=== PATIENT | female | born 1975 | race Caucasian/White ===

== ENCOUNTER 2018-04-24 22:05 | Emergency (ER) | payer MEDICAID, SELFPAY ==
--- NOTE | 2018-04-24 22:05 | DT_ITS ---
This patient was seen during an EMR downtime April 22, 2018 - April 29, 2018. This patient may have a combination of paper and electronic documentation or all paper documentation. All documentation is viewable within the e-chart portion of [facility] for each patient visit.
--- NOTE | 2018-04-24 22:20 | CT_ITS ---
STUDY: CT BRAIN WITHOUT CONTRAST REASON FOR EXAM: Female, 42 years old. Headache RADIATION DOSAGE (If Supplied By Facility): CTDIvol = ( 44.99 ) mGy, DLP = ( 745.49 ) mGycm TECHNIQUE: Transaxial CT imaging of the brain was performed without administration of intravenous contrast material. Individualized dose optimization techniques were used for this CT. COMPARISON: None. FINDINGS: Normal soft tissue structures. Normal calvarium. Normal size ventricles and extra-axial spaces for the patient's age. Normal white matter tracts of the cerebral hemispheres. Normal basal ganglia and thalami. Normal brainstem. Normal cerebellum. There is no intracranial hemorrhage. There are no findings of an acute ischemic infarction. Normal visualized paranasal sinuses. CT/Brain/Head without Contrast IMPRESSION: Normal unenhanced CT scan of the brain. Electronically Signed: Nelson Ayon MD at 4:04 EDT , Service support ,
[2018-04-27 06:37] LABS: Hematocrit 40.5 % (37-47); Hemoglobin 13.2 g/dl (12.0-15.0); Mean Corpuscular Volume 95.1 fL (81-99); Red Blood Count 4.26 M/mm3 (4.2-5.4); White Blood Count 11.6 K/mm3 (4.4-11.0)
[2018-04-27 06:38] LABS: Absolute Lymphocyte Count 3.45 X10^3/ul (0.83-4.51); Absolute Neutrophil Count 7.1 X10^3/uL (2.0-7.7); Basophil# 0.02 X10^3/uL; Basophil% 0.2 % (0-1); Eosinophil# 0.04 X10^3/uL; Eosinophils% 0.3 % (0-5); Lymphocyte # 3.45 X10^3/ul (4.0); Lymphocyte % 29.7 % (19-41); Mean Corp Hgb Conc 32.6 g/gl (32-36); Monocyte# 0.96 X10^3/uL; Monocyte% 8.3 % (0-10); Neutrophil # 7.06 X10^3/uL (2.7-7.7); Neutrophil % 60.7 % (47-70); POSITIVE COUNT NO; POSITIVE DIFFERENTIAL NO; POSITIVE MORPHOLOGY NO; Platelet Count 283 K/mm3 (150-450); RBC Distribution Width CV 13.9 % (11.6-14.6); RBC Distribution Width SD 46.9 fl (35.1-43.9)
[2018-04-27 06:46] LABS: Anion Gap 7 (5-15); BUN 26 mg/dL (7-18); BUN/Creat Ratio 25.5 RATIO (10-20); Calcium,Total 8.3 mg/dL (8.5-10.1); Chloride 114 mmol/L (98-107); Creatinine, Serum 1.02 mg/dL (0.55-1.02); EST Glomerular Filtration Rate 63 mL/min (>60); Est Glom Filt Rate - Afr Amer 76 mL/min (>60); Glucose 86 mg/dL (74-106); Potassium 3.5 mmol/L (3.5-5.1); Sodium Level 149 mmol/L (136-145)
== END 2018-04-24 23:35 | disposition home or self-care (01) ==
LOC: ED 04-26 12:29
PROVIDERS: Emergency Provider Emergency Medicine; Family Provider Student in an Organized Health Care Education/Training Program; PCP Student in an Organized Health Care Education/Training Program
DX: G43.909 Migraine, unspecified, not intractable, without status migrainosus (principal); J45.909 Unspecified asthma, uncomplicated; F41.9 Anxiety disorder, unspecified; F32.9 Major depressive disorder, single episode, unspecified; Z79.899 Other long term (current) drug therapy
CPT/HCPCS: 70450; 80048; 85025; 96374; 96375; 99283; A4216

== ENCOUNTER → 2018-05-24 09:26 | Outpatient (CLI) | payer MEDICAID, SELFPAY ==
--- NOTE | 2018-05-26 14:12 | EEG ---
- Electroencephalogram Date of service: 05/24/2018 History EEG is being done in this 42 yr F to rule out seizures EEG Description: This is an 18 channel EEG with 10-20 lead placement system. Bipolar montages, Referential and Circumferential montages were reviewed. Photic stimulation and Hyperventilation were performed. The posterior dominant background rhythm is 9 HZ synchronous, symmetric, reacting to eye opening and closing. Photo stimulation elicited normal driving response but no abnormal photoparoxysmal response, Hyperventilation did not elicit any abnormal photoparoxysmal response. Artifact noted in the frontal leads bilaterally during the record. Sleep was identified. Multiple episodes of leg/arm twitching noted by the tech without any EEG correlate and had associated muscle artifact. There was no epileptiform discharges or electrographic seizures noted during this recording. EEG Interpretation This is a normal awake and asleep EEG. Multiple twitching episodes of the arm/leg noted by the tech without any EEG correlate, with associated muscle artifact. Clinical correlation is advised. There is no epileptiform discharges or electrographic seizures noted during the record.
--- NOTE | 2018-05-26 14:16 | EEG_ITS ---
- Electroencephalogram Date of service: 05/24/2018 History EEG is being done in this 42 yr F to rule out seizures EEG Description: This is an 18 channel EEG with 10-20 lead placement system. Bipolar montages, Referential and Circumferential montages were reviewed. Photic stimulation and Hyperventilation were performed. The posterior dominant background rhythm is 9 HZ synchronous, symmetric, reacting to eye opening and closing. Photo stimulation elicited normal driving response but no abnormal photoparoxysmal response, Hyperventilation did not elicit any abnormal photoparoxysmal response. Artifact noted in the frontal leads bilaterally during the record. Sleep was identified. Multiple episodes of leg/arm twitching noted by the tech without any EEG correlate and had associated muscle artifact. There was no epileptiform discharges or electrographic seizures noted during this recording. EEG Interpretation This is a normal awake and asleep EEG. Multiple twitching episodes of the arm/ leg noted by the tech without any EEG correlate, with associated muscle artifact. Clinical correlation is advised. There is no epileptiform discharges or electrographic seizures noted during the record.
== END ==
PROVIDERS: Family Provider Student in an Organized Health Care Education/Training Program; PCP Student in an Organized Health Care Education/Training Program; Visit Provider Nurse Practitioner Acute Care
DX: R56.9 Unspecified convulsions (principal)
CPT/HCPCS: 95819

== ENCOUNTER → 2018-08-22 12:13 | Outpatient (CLI) | payer MEDICAID, SELFPAY ==
[2018-08-22 13:41] LABS: ALB/GLOB Ratio 1.2 RATIO (0.9-2.4); AST(SGOT) 15 U/L (15-37); Alanine Aminotransfer ALT/SGPT 27 U/L (13-56); Albumin, Serum 3.8 g/dL (3.2-5.0); Alkaline Phosphatase 63 U/L (45-117); Anion Gap 4 (5-15); BUN 17 mg/dL (7-18); BUN/Creat Ratio 18.5 RATIO (10-20); Calcium,Total 8.9 mg/dL (8.5-10.1); Chloride 114 mmol/L (98-107); Creatinine, Serum 0.92 mg/dL (0.55-1.02); EST Glomerular Filtration Rate 71 mL/min (>60); Est Glom Filt Rate - Afr Amer 86 mL/min (>60); Globulin 3.3 g/dL (2.2-4.2); Glucose 74 mg/dL (74-106); Magnesium 2.2 mg/dL (1.6-2.6); Phosphorus 2.5 mg/dL (2.5-4.9); Potassium 4.1 mmol/L (3.5-5.1); Protein, Total 7.1 g/dL (6.4-8.2); Sodium Level 145 mmol/L (136-145)
== END ==
PROVIDERS: Family Provider Student in an Organized Health Care Education/Training Program; PCP Student in an Organized Health Care Education/Training Program; Referring Provider Nurse Practitioner Acute Care; Visit Provider Nurse Practitioner Acute Care
DX: Z79.899 Other long term (current) drug therapy (principal)
CPT/HCPCS: 36415; 80053; 83735; 84100

== ENCOUNTER → 2019-02-17 14:34 | Outpatient (CLI) | payer MEDICAID, SELFPAY ==
[2019-02-20 14:11] LABS: Adrenocorticotropic Hormone 2.8 pg/mL (7.2-63.3)
== END ==
PROVIDERS: Family Provider Student in an Organized Health Care Education/Training Program; PCP Student in an Organized Health Care Education/Training Program; Referring Provider Student in an Organized Health Care Education/Training Program; Visit Provider Student in an Organized Health Care Education/Training Program
DX: R41.840 Attention and concentration deficit (principal)
CPT/HCPCS: 36415; 82024

== ENCOUNTER → 2019-05-26 10:54 | Outpatient (CLI) | payer MEDICAID, SELFPAY ==
--- NOTE | 2019-05-23 15:26 | PCM.HP.BLA ---
History and Physical Date of Admission: 05/26/19 Bhavesh Beaulieu 1975 ? ? REFERRING PHYSICIAN: Ra Galvez, DO ? CHIEF COMPLAINT: Consult (Consult Breast) ? HPI: The patient is a 43 year old female presents with abnormal right breast ultrasound. Mammograms April 22, 2019 - Oval asymmetry in the right breast central to the nipple anterior depth US 04/22/19 The oval lesion in the right breast is consistent with an oil cyst and is at a low suspicion for malignancy. ?An ultrasound guided biopsy is recommended. Denies palpable breast masses. Denies history of breast biopsies. Denies breast pain. Denies nipple disharge. Paternal aunt had breast cancer No ovarian cancer known in family. US guided breast biopsy 05/02/19 - Breast, right, core biopsy - Breast tissue with focal stromal fibrosis. The pathology is discordant with the radiological findings. The mammograms reveal that the marker clip is not in any particular area of suspicion on the breast. Patient therefore presents for right stereotactic breast biopsy. ? ? PAST MEDICAL HISTORY ? Allergic rhinitis, cause unspecified ? ? Allergy, airborne subst ? Anxiety and depression ? ? Bee allergy status ? ? Depression ? ? Environmental allergies ? ? GERD (gastroesophageal reflux disease) ? ? Hypercholesteremia 11/2014 ? Impaired fasting glucose ? ? Migraines ? ? Morbid obesity (HCC) ? ? Obstructive sleep apnea ? ? DX 2006, not on CPAP since 06/2018 ? Unspecified asthma(493.90) ? ? weather, allergy and exercise triggers ? Vitamin D deficiency ? ? PAST SURGICAL HISTORY ? DELIVERY ONLY ? 2001 ? , low cervical ? LIGATE FALLOPIAN TUBE ? 2001 ? Tubal ligation ? LITHOTRIPSY [facility] Right 02/18/2018 ? ? Current Outpatient Medications: Sullivan Wumuvv-Hctxfq-Vcqu Oxide (GOLD SOLANO MEDICATED BABY) 79-4-15 % powd Apply 1 application to affected area twice daily as needed Magnesium 250 mg tab Take 1 tablet by mouth once daily. L. rhamnosus-L. reuteri (REPHRESH PRO-B) 2.5 billion cell cap Take 1 capsule by mouth daily at bedtime. gabapentin (NEURONTIN) 100 mg capsule Take 1 capsule by mouth three times daily for 90 days. albuterol HFA (VENTOLIN HFA) 90 mcg/actuation inhaler Inhale 2 Puffs as instructed every 4 hours as needed. Omeprazole 40 mg capsule Take 1 capsule by mouth once daily. Lacto.acidophilus-Bif.animalis (PRODIGEN) 31 billion cell cap Take 1 capsule by mouth once daily. LORazepam (ATIVAN) 0.5 mg tab Take by mouth at bedtime as needed. vortioxetine (TRINTELLIX) 10 mg tab Take 5 mg by mouth once daily. triamcinolone acetonide (NASACORT AQ) 55 mcg nasal inhaler Use 2 Sprays in each nostril every morning. azelastine (ASTELIN,ASTEPRO) 0.1% nasal spray Use 2 Sprays in each nostril daily at bedtime. guaiFENesin (MUCINEX) 600 mg 12 hr tablet Take 2 tablets by mouth twice daily as needed. cetirizine (ZYRTEC) 10 mg tablet Take 1 tablet by mouth once daily as needed. ketotifen fumarate (ZADITOR) 0.025 % (0.035 %) ophthalmic solution One drop to each eye 2 to 3 times a day as needed. vrtjlcm-nmtmjgufd-othjfxj D3 (CALCIUM 500+D) 500 mg(1,250mg) -200 unit per tablet Take 1 tablet by mouth twice daily with benzonatate (TESSALON PERLE) 100 mg capsule Take 1 capsule by mouth three times daily as needed. albuterol (PROVENTIL) 2.5 mg /3 mL (0.083 %) nebulizer solution Use 3 mL via nebulizer every 6 hours as needed for Wheezing/Shortness rizatriptan (MAXALT) 10 mg tablet Take 1 tablet by mouth as needed for Migraine Headache (see administration instructions). May amitriptyline (ELAVIL) 50 mg tablet Take 50 mg by mouth daily at bedtime. topiramate (TOPAMAX) 50 mg tablet Take 50 mg by mouth twice daily. ziprasidone (GEODON) 40 mg capsule Take 40 mg by mouth daily with dinner. yaqnuyxm-ztiwqpxpt-dryafcdfcksjwb (CORTISPORIN) otic solution Use 3 Drops in the left ear as needed. naproxen (NAPROSYN) 500 mg tablet Take 1 tablet by mouth twice daily as needed. cholecalciferol (VITAMIN D3) 2,000 unit tablet Take 1 tablet by mouth once daily. vitamin b complex (B COMPLETE) tab Take 1 tablet by mouth once daily. fluticasone-vilanterol (BREO ELLIPTA) 200-25 mcg/dose inhaler Inhale 1 Inhalation as instructed once daily. Rinse mouth out after use. EPINEPHrine (EPIPEN) 0.3 mg/0.3 mL auto-injector Inject 0.3 mL intramuscularly as needed (for allergic reaction.Seek emergent medical predniSONE (DELTASONE) 20 mg tablet 2 pills daily x 3 days, then 1 pill daily x 4 days, then 1/2 pill daily x 4 days. benzonatate (TESSALON PERLE) 100 mg capsule Take 1 capsule by mouth three times daily as needed. Menthol-Zinc Oxide (GOLD SOLANO MEDICATED) 0.15-1 % powder Apply 1 application to affected area twice daily. NYAMYC powder Apply 1 application to affected area four times daily as needed. ? ? ALLERGIES: Environmental Allergies [Other]; Lexapro [Escitalopram Oxalate]; Prozac [Fluoxetine Hcl]; Venom-Wasp; Venom-Yellow Hornet; Venom-Yellow Jacket Protein; Zoloft [Sertraline Hcl] ? PERSONAL HISTORY: Social History Socioeconomic History Marital status: Legally Spouse name: Not on file Number of children: 2 Years of education: Not on file Highest education level: Not on file Social Needs Financial resource strain: Not on file Food insecurity - worry: Not on file Food insecurity - inability: Not on file Transportation needs - medical: Not on file Transportation needs - non-medical: Not on file Occupational History Occupation: [employer] Employer: [employer] Tobacco Use Smoking status: Never Smoker Smokeless tobacco: Never Used Substance and Sexual Activity Alcohol use: No Drug use: No Sexual activity: Not on file Other Topics Concerns: Service: No Blood Transfusions: Not Asked Caffeine Concern: Not Asked Occupational Exposure: Not Asked Hobby Hazards: Not Asked Sleep Concern: Yes staying asleep Stress Concern: Not Asked Weight Concern: Not Asked Special Diet: No Back Care: Not Asked Exercise: No Bike Helmet: Not Asked Seat Belt: Yes Self-Exams: No Social History Narrative Not on file ? FAMILY HISTORY ? Asthma Mother ? ? Thyroid Mother ? ? COPD Mother ? ? other (depression) Mother ? ? other (depression) Sister ? ? Asthma Brother ? ? Depression Brother ? ? Diabetes Father ? ? Hypertension Father ? ? Diabetes Maternal Grandmother ? ? Thyroid Maternal Grandmother ? ? Cancer Maternal Grandfather ? ? unknown ? Kidney Disease Paternal Grandmother ? ? Cancer Paternal Grandfather ? ? Asthma Daughter ? ? Depression Daughter ? ? Depression Daughter ? ? other (ADD) Daughter ? ? ? REVIEW OF SYSTEMS: General - denies fevers, denies weight loss, denies anorexia, feels tired all the time Cardiovascular - denies chest pain, denies history of NH Pulmonary - has shortness of breath with exertion, denies coughing up blood, denies TOB use Gastrointestinal - denies abdominal pain, denies hematemesis Neurological - has migraine headaches, denies seizures, denies history of CVA Genitourinary - has had kidney stones, denies burning with urination, denies blood in urine Hematological - denies spontaneous/prolonged bleeding Skin - denies nonhealing skin wounds Musculoskeletal - has knee pain Endocrine - denies diabetes Psychological ? has anxiety, denies hallucinations Obstetrical: menarche onset is age 12, , first at age 21, BCP starting at age 21 for about 1 y, denies breast feeding, denies hormones use at present, has had no menstrual periods for greater than 15 y ? PHYSICAL EXAMINATION: General: The patient is 43 year old female, well nourished, well hydrated in no acute distress. The patient is oriented to time, place, and person. Patient is morbidly obese. VITALS: Ht: 5'3 Wt: 274# Head ? Normocephalic. EOM intact with sclera clear and no icterus noted. Wearing glasses. Mouth with mucus membranes moist. Neck - supple with no jugular venous distention noted. Trachea is midline. No carotid bruits noted. No thyroid enlargement or thyroid nodules detected. No masses noted. Chest/breast ? no asymmetry of breasts noted, no suspicious skin lesions noted, no nipple discharge and both nipples everted, no breast masses noted Lungs ? clear to auscultation. Normal breath sounds. No rales/rhonchi/wheezing noted. No labored breathing noted, such as retractions. No cough heard. Heart ? normal S1 and S2 auscultated. No rubs/clicks/murmurs noted. Regular rate. Abdomen ? soft and benign. Normal bowel sounds. Difficult to determine if any masses or organomegaly due to body habitus. Extremities ? no calf tenderness noted. No pitting edema noted. Skin ? normal skin integrity. Lymph ? no cervical adenopathy detected, no supraclavicular adenopathy detected, no axillary adenopathy detected Neurological ? gait normal, no focal deficits noted Psych ? calm and appropriate RADIOLOGIC STUDIES: As Noted ? ? IMPRESSION: abnormal mammograms of right breast, abnormal ultrasound of right breast ? PLAN: I have discussed above with patient and her boyfriend?s grandmother who is present with her. I have recommended right stereotactic breast biopsy, given that a US guided breast biopsy was recommended (though radiologist did admit low suspicion for malignancy). US guided biopsy pathology was discordant with radiological findings. Must therefore pursue mammograms as mode of biopsy and therefore proceed to stereotactic breast biopsy. I have described the procedure to the patient and given her a handout regarding the procedure I have counseled the patient as to the risks of the procedure, including but not limited to: infection, bleeding, injury to any blood vessels/nerves, scar tissue, needing additional procedure, complications of anesthesia, non concordance of lesion requiring further biopsy, etc. ? she understands. She agrees with the above. Will schedule for right stereotactic breast biopsy at [facility]. I have answered all questions to the patient?s satisfaction and the patient has no further questions. Return to Clinic: The patient is instructed to follow-up with me after the procedure.
--- NOTE | 2019-05-26 | IMM_PTH ---
PATIENT: FARRAH BELLA LOC: NESS U#:[id number] AGE/SX: 50/F ROOM: RE05/26/[address]: Dr. Ninfa Mcdonald MD : 1975 BED: DIS: SPEC #: [id number] RECD: 05/27/19 16:25 STATUS: JERAMY REQ #: [id number] GABRIEL: 05/26/19 00:[address]: iNnfa Mcdonald DEPT: IMMUNOHISTOCHEMISTRY RECD BY: Elin Borges ENTERED: 05/27/19 16:26 SP TYPE: IMMUNO OTHR DR: Dr. Ra Galvez DO Tissues: Right breast, NOS Procedures: CK5-6 (add) CK8 (add) MACRO (add) P53 (add) Vimentin (add) Pankeratin (initial) GATA3 (add) PHYSICIAN & INSTITUTION [place] [id number] SPECIMEN INFORMATION: Tissue Source: Right breast Clinical Info: Density 12 o'clock anterior depth Specimen Number: [id number] #1 CPT code: 46277, 74151 x6 METHODOLOGY: Deparaffinized sections of prefer/formalin-fixed tissue or PAP/DQ stained slides are incubated with monoclonal/polyclonal antibodies/oligonucleotide probes. Localization is made via biotin free immunoperoxidase method. Appropriate controls are performed and reacted as expected. Results on target cell population are indicated in the following table: RESULTS: ANTIBODY / CLONE RESULT Block 1 GATA3 (L50-823) negative AE1-3 (AE1/AE3/PCK26) negative CK8 (94ackhY80) negative Vimentin (V9) positive Macro (HAM-56) positive CK5-6 (D5 & 1684) negative P53 (DO-7) negative These tests were developed and their performance characteristics determined by [facility]. They may not have been cleared or approved by the U.S. Food and Drug Administration. The FDA has determined that such clearance or approval is not necessary. INTERPRETATION: Right breast, stereotactic needle core biopsy: No evidence of malignancy. AM:sushila 05/28/19
--- NOTE | 2019-05-26 11:30 | BRBX_PTH ---
PATIENT: FARRAH BELLA LOC: NESS U#:[id number] AGE/SX: 50/F ROOM: RE05/26/[address]: Dr. Ninfa cMdonald MD : 1975 BED: DIS: SPEC #: [id number] RECD: 05/26/19 13:07 STATUS: JERAMY SHIRLEY #: [id number] GABRIEL: 05/26/19 11:[address]: Ninfa Mcdonald DEPT: SURGICAL PATHOLOGY RECD BY: Lulu Stephens ENTERED: 05/26/19 14:58 SP TYPE: BREAST BX OTHR DR: Dr. Ra Galvez DO Tissues: Right breast, NOS Procedures: Surgery Specimen Level IV HEADER OPERATION: Right breast stereotactic needle core biopsy PRE-OP DIAGNOSIS: Density 12 o'clock anterior depth TISSUE SUBMITTED: Right breast ISCHEMIC TIME: 2 minutes FIXATION TIME: 8 hours MICROSCOPIC DIAGNOSIS Right breast, stereotactic needle core biopsy: Fat necrosis with associated benign histiocytic reaction and mild chronic inflammation and fibrosis. No evidence of malignancy. See comment. AM:sushila 05/27/19 COMMENT Immunohistochemistry ([id number]) supports the above diagnosis. MICROSCOPIC DESCRIPTION Slides are reviewed. GROSS DESCRIPTION Received is one container labeled with the patient's name and not further designated. The specimen consists of multiple elongated fragments of payan-yellow fibroadipose tissue that in aggregate measure 7.5 x 3 x 0.3 cm. The entire specimen is submitted in three cassettes. / SJ:sushila 05/26/19 TC:5 CPT: 61880
--- NOTE | 2019-05-26 13:46 | PCM.OPRPT ---
Report of Operation Date of Procedure: 05/26/19 Pre-Operative Diagnosis: abnormal lesion seen on right breast ultrasound and mammograms Post-Operative Diagnosis: same Surgery/Procedure Performed:: right stereotactic breast biopsy Description of Surgical Findings:: anterior depth lesion at mid upper aspect of right breast Type of Anesthesia:: Local - 1% xylocaine Specimen's removed: right breast tissue Estimated Blood Loss (mL): < 1 ml Fluids Replaced: none Description of Procedure: After informed consent was given, the patient was brought into the breast biopsy suite. Appropriate time out protocol was followed. She was then placed in the prone position on the stereotactic biopsy table. The patient?s right breast was then placed in the opening at the head of the table. A press hand supervisor compression mammogram was then obtained in the CC view. The suspicious radiological lesion was then identified. Stereo pictures of the lesion were then taken for XYZ coordinates. The Mammotome biopsy stylus was then positioned where it would be entering into the patient?s breast. The skin at this site was then cleansed with a surgical skin preparation. The skin and subcutaneous tissues at this site were then infiltrated with 1% xylocaine. A small skin incision was made with an 11 blade scalpel. The biopsy stylus was then positioned into the patient?s breast at the proper coordinates of depth. Using the Mammotome vacuum-assist device, several core samples of breast tissue were obtained. A hemostatic marker clip was then placed into the biopsy cavity and a press hand supervisor film revealed that it was properly deployed. It also appeared that part of the lesion was biopsied. The patient was then placed in the supine position and pressure was applied to the breast until no active bleeding was noted. A nylon suture was then placed to reapproximate the skin. A unilateral mammogram in the CC and MLO view were then taken which revealed that the marker clip was near the vicinity of the lesion in the CC view, but not in the LMO view. Though in the LMO view, the lesion was no longer seen. The patient tolerated the procedure well and was discharged from the breast biopsy suite in good condition. - Complications none noted
== END ==
PROVIDERS: Family Provider Student in an Organized Health Care Education/Training Program; PCP Student in an Organized Health Care Education/Training Program; Referring Provider Surgery; Visit Provider Surgery
DX: R92.8 Other abnormal and inconclusive findings on diagnostic imaging of breast (principal); K21.9 Gastro-esophageal reflux disease without esophagitis; E66.01 Morbid (severe) obesity due to excess calories; G47.33 Obstructive sleep apnea (adult) (pediatric); J45.909 Unspecified asthma, uncomplicated; F41.9 Anxiety disorder, unspecified; F32.9 Major depressive disorder, single episode, unspecified; Z79.51 Long term (current) use of inhaled steroids; Z79.52 Long term (current) use of systemic steroids; Z79.899 Other long term (current) drug therapy
CPT/HCPCS: 19081; 88305; 88341; 88342; J7050

== ENCOUNTER 2019-07-31 22:41 | Emergency (ER) | payer MEDICAID, SELFPAY ==
[2019-07-31 22:42] VITALS: BP 164/87; PULSE 74; RESP 16; TEMP 36.5; O2SAT 99; BMI 47.5
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
--- NOTE | 2019-07-31 22:55 | ED.DEP ---
ED Disposition - Plan for ED Patient: Disposition: Home or Assisted Living Diagnosis: Lumbar strain, Cervical strain Instructions: Neck Sprain/Strain, Back Sprain/Strain Referrals: Ra Galvez DO [Primary Care Provider] -
== END 2019-07-31 23:06 | disposition home or self-care (01) ==
LOC: ED 23:04
PROVIDERS: Emergency Provider Emergency Medicine; Family Provider Student in an Organized Health Care Education/Training Program; PCP Student in an Organized Health Care Education/Training Program
DX: S39.012A Strain of muscle, fascia and tendon of lower back, initial encounter (principal); S16.1XXA Strain of muscle, fascia and tendon at neck level, initial encounter; V89.2XXA Person injured in unspecified motor-vehicle accident, traffic, initial encounter; Y93.9 Activity, unspecified; Y92.9 Unspecified place or not applicable; Y99.9 Unspecified external cause status; J45.909 Unspecified asthma, uncomplicated; Z88.8 Allergy status to other drugs, medicaments and biological substances
CPT/HCPCS: 99284

== ENCOUNTER 2020-04-03 00:43 | Emergency (ER) | payer MEDICAID, SELFPAY ==
[2020-04-03 00:43] VITALS: BMI 47.5
[2020-04-03 00:44] VITALS: BP 149/86; PULSE 87; RESP 16; TEMP 36.4; O2SAT 99; BMI 46.5
[2020-04-03 01:28] LABS: Absolute Lymphocyte Count 1.52 X10^3/uL (0.83-4.51); Absolute Neutrophil Count 4.9 X10^3/uL (2.0-7.7); Basophil# 0.05 X10^3/uL; Basophil% 0.7 % (0-1); Eosinophil# 0.05 X10^3/uL; Eosinophils% 0.7 % (0-5); Hematocrit 41.5 % (37-47); Hemoglobin 13.3 g/dL (12.0-15.0); Lymphocyte # 1.52 X10^3/ul (4.0); Lymphocyte % 21.8 % (19-41); Mean Corpuscular Hgb 30.6 pg (27.0-32.0); Mean Corpuscular Volume 95.4 fL (81-99); Mean Platelet Vol. 9.9 fl (6.2-12.0); Monocyte# 0.47 X10^3/uL; Monocyte% 6.8 % (0-10); NRBC Flagged by Analyzer 0 % (0-5); Neutrophil # 4.86 X10^3/uL (2.7-7.7); Neutrophil % 69.9 % (47-70); Platelet Count 247 K/mm3 (150-450); RBC Distribution Width CV 13.9 % (11.6-14.6); RBC Distribution Width SD 48.8 fl (35.1-43.9); Red Blood Count 4.35 M/mm3 (4.2-5.4)
[2020-04-03 01:47] LABS: Internal QC Validated? YES +Cl - CLEAR BKGD; Pregnancy, Serum, hCG Quali. NEGATIVE Negative
[2020-04-03 01:53] LABS: Anion Gap 7 (5-15); BUN 17 mg/dL (7-18); BUN/Creat Ratio 15.6 RATIO (10-20); Calcium,Total 9.2 mg/dL (8.5-10.1); Chloride 114 mmol/L (98-107); Creatinine, Serum 1.09 mg/dL (0.55-1.02); EST Glomerular Filtration Rate 58 mL/min (>60); Est Glom Filt Rate - Afr Amer 70 mL/min (>60); Estimated Creatinine Clearance 52.09 ml/min; Glucose 117 mg/dL (74-106); Potassium 3.7 mmol/L (3.5-5.1); Sodium Level 144 mmol/L (136-145)
--- NOTE | 2020-04-03 02:07 | ED.VIS.GEN ---
History of Present Illness Chief Complaint: Mental Health Informant: Patient Current Severity: Moderate Maximum Severity: Moderate Narrative: Patient presents seeking a psychiatric evaluation for feeling sad and depressed. She denies 1 specific thing leading to this. She is a history of bipolar disorder and follows with [facility] for psychiatry. She is an appointment in 1 week. Patient reportedly called crisis for 5 days ago and talk with them as well. I was told by nursing staff that crisis called in and advised the patient would be coming in. They report the patient was having a fight with her boyfriend and he was stating that patient had made suicidal statements. Patient denies suicidal homicidal statements at this point. - Past Medical History (1) Prediabetes Status: Chronic (2) GERD (gastroesophageal reflux disease) Status: Chronic (3) Asthma Status: Chronic (4) Kidney stones Status: Chronic (5) Bipolar disorder Status: Chronic Past Medical History - Allergies and Home Meds Allergies/Adverse Reactions: Allergies bupropion [From Wellbutrin] Adverse Reaction (Verified 04/03/20 00:48) Other makes her angry escitalopram [From Lexapro] Adverse Reaction (Verified 04/03/20 00:48) Other makes her angry fluoxetine [From Prozac] Adverse Reaction (Verified 04/03/20 00:48) Other makes her angry vortioxetine [From Trintellix] Adverse Reaction (Verified 04/03/20 00:48) OTHER GETS GRAY Primary Care Physician: Ra Galvez DO [Primary Care Provider] - Prior records reviewed: Yes Lives: Spouse/ Significant Other Smoking Status: Never smoker Review of Systems General: Denies: Chills, Fever Eyes: Denies: Visual changes - bilaterally ENT: Denies: Bilateral ear pain Cardiovascular: Denies: Chest pain Respiratory: Denies: Dyspnea, Cough Gastrointestinal: Denies: Abdominal pain, Nausea, Vomiting, Diarrhea Genitourinary: Denies: Dysuria Musculoskeletal: Denies: Extremity Pain Skin: Denies: Rash Neurological: Denies: Headache Hematologic: Denies: Easy bruising, Easy bleeding Allergy: Denies: Uticaria Physical Exam Vital Signs/Narrative: Vital Signs Temp Pulse Resp BP Pulse Ox 04/03/20 00:44 97.6 F L 87 16 149/86 H 99 Inital Vital Signs reviewed: Yes General: Well nourished, Well developed Head: Normocephalic ENT: Moist mucous membranes Neck: Supple Cardiovascular: Regular rate, Regular rhythm Respiratory: No distress, CTA bilaterally Abdomen: Soft, Nontender, Normal bowel sounds Extremities: Nontender Skin: Normal color, No rash Neurological: Alert, Oriented x3, Normal Strength, Normal Sensation Psychological: Depressed, - - Flat affect. Denies suicidal homicidal thoughts. Diagnostic/Tx/Re-eval Laboratory Results 04/03/20 04/03/20 04/03/20 01:19 01:19 01:19 WBC 7.0 RBC 4.35 Hgb 13.3 Hct 41.5 MCV 95.4 MCH 30.6 MCHC 32.0 RDW Std Deviation 48.8 H RDW Coeff of Aretha 13.9 Plt Count 247 MPV 9.9 Immature Gran % (Auto) 0.100 Neut % (Auto) 69.9 Lymph % (Auto) 21.8 Hancock % (Auto) 6.8 Eos % (Auto) 0.7 Baso % (Auto) 0.7 Absolute Neuts (auto) 4.9 Absolute Lymphs (auto) 1.52 Nucleated RBC % 0 Sodium 144 Potassium 3.7 Chloride 114 H Carbon Dioxide 23.0 Anion Gap 7 BUN 17 Creatinine 1.09 H Estim Creat Clear Calc 52.09 Est GFR (MDRD) Af Amer 70 Est GFR (MDRD) Non-Af 58 L BUN/Creatinine Ratio 15.6 Glucose 117 H Calcium 9.2 Serum , Qual Urine Opiates Screen Urine Methadone Screen Ur Barbiturates Screen Ur Phencyclidine Scrn Ur Amphetamines Screen U Methamphetamin-MDMA U Benzodiazepines Scrn Urine Cocaine Screen U Cannabinoids Screen Ur Drug Screen Comment Ethyl Alcohol 5.0 04/03/20 04/03/20 01:19 02:18 WBC RBC Hgb Hct MCV MCH MCHC RDW Std Deviation RDW Coeff of Aretha Plt Count MPV Immature Gran % (Auto) Neut % (Auto) Lymph % (Auto) Hancock % (Auto) Eos % (Auto) Baso % (Auto) Absolute Neuts (auto) Absolute Lymphs (auto) Nucleated RBC % Sodium Potassium Chloride Carbon Dioxide Anion Gap BUN Creatinine Estim Creat Clear Calc Est GFR (MDRD) Af Amer Est GFR (MDRD) Non-Af BUN/Creatinine Ratio Glucose Calcium Serum , Qual NEGATIVE Urine Opiates Screen NEGATIVE Urine Methadone Screen NEGATIVE Ur Barbiturates Screen NEGATIVE Ur Phencyclidine Scrn NEGATIVE Ur Amphetamines Screen NEGATIVE U Methamphetamin-MDMA NEGATIVE U Benzodiazepines Scrn NEGATIVE Urine Cocaine Screen NEGATIVE U Cannabinoids Screen NEGATIVE Ur Drug Screen Comment Ethyl Alcohol - Medical Decision Making Reina from the counseling center spoke with the patient on the phone. Patient continues to deny suicidal or homicidal ideation. She states she does feel safe at home. She is agreed to follow-up for with her next counseling appointment. She has agreed to safety plan. ED Disposition - Plan for ED Patient: Disposition: Home or Assisted Living Diagnosis: Depression Instructions: ED Depression Referrals: Ra Galvez DO [Primary Care Provider] - Additional Instructions: Follow-up with [facility] next Sunday as scheduled.
--- NOTE | 2020-04-03 02:30 | NURSING ---
CALLED [facility] AT 0230
[2020-04-03 03:09] LABS: Amphetamine Urine VISTA NEGATIVE (<1000 ng/mL); Barbiturate Urine VISTA NEGATIVE (< 200 ng/mL); Benzodiazepine Urine VISTA NEGATIVE (< 200 ng/mL); Cocaine Urine VISTA NEGATIVE (< 300 ng/mL); Ecstacy Urine VISTA NEGATIVE (< 500 ng/mL); Methadone Urine VISTA NEGATIVE (< 300 ng/mL); PCP Urine VISTA NEGATIVE (< 25 ng/mL); THC Urine VISTA NEGATIVE (< 50 ng/mL); Vista UDS pH Range 6
[2020-04-03 03:29] VITALS: RESP 16
[2020-04-03 03:46] VITALS: RESP 16
--- OUTSIDE RECORDS SUMMARY | 2020-08-31 11:33 | XMS RPT_ITS | CCD ---
:1975 External Reference #:[id number] Author Organization [facility] Care Team Providers Name Role Phone Kathy Galvez Primary Care Provider LURIA, S Unavailable Unavailable LURIA, S Unavailable Unavailable LURIA, S Unavailable Unavailable LURIA, S Unavailable Unavailable BALCOM, E. Unavailable Unavailable GALVEZ, P Unavailable Unavailable KINKOPF Unavailable Unavailable GALVEZ, P Unavailable Unavailable CARVAJAL, G. Unavailable Unavailable GALVEZ Unavailable Unavailable Allergies Reported Allergen Reaction(s) Severity Date of Onset Location Adrenergic Contraindication-Me High, Unknown 11-02-2014 - [facility]Antagonists [facility] (47265) Translations: [ BETA-BLOCKERS (BETA-ADRENERGIC BLOCKING AGTS)] Angiotensin Contraindication-Me 11-02-2014 - [facility] (62799) (Kerrie) Inhibitors Translations: [ KERRIE INHIBITORS] buPROPion Rash 05-08-2019 - [facility] (50817) Environmental 12-25-2006 - [facility] Allergies [Other] (59531) Escitalopram Intolerance 10-30-2018 - [facility] (02381) FLUoxetine Intolerance 10-30-2018 - [facility] (08402) Sertraline Intolerance 10-30-2018 - [facility] (81741) [facility]: [ (73846) VENOM-WASP] Venom-Yellow Hornet Unknown 09-26-2007 [facility] Translations: [ (15883) VENOM-YELLOW HORNET] vilazodone Mental Status 05-17-2020 - [facility] Change (64152) vortioxetine Mental Status 01-08-2020 - [facility] Change (07419) yellow jacket venom 09-26-2007 [facility] protein Translations: (79422 ) [ VENOM-YELLOW JACKET PROTEIN] OTHER Translations: [ 12-25-2006 - [facility] OTHER] Other [place] [facility] Medications Medication Name Sig Date Prescriber Location Albuterol albuterol HFA 04-02-2020 Ra Kathy Lneny [facility] (VENTOLIN HFA) 90 (86483) mcg/actuation inhaler Inhale 2 Puffs as instructed every 4 hours as needed. 1 Inhaler 2 04/02/2020 Active albuterol (PROVENTIL) 2.5 mg /3 mL 08-07-2019 [facility] (12294) (0.083 %) nebulizer solution Use 3 mL via nebulizer every 4 hours as needed for Wheezing/Shortness of Breath. 1 vial contains 3 ml. 1 Package 1 08/07/2019 Active Comment: Inhale 2 Puffs as instructed every 4 hours as needed. Use 3 mL via nebulizer every 4 hours as needed for Wheezing/Shortness of Breath. 1 vial contains 3 ml . Allopurinol allopurinol (ZYLOPRIM) 08-04-2020 [facility] 300 mg tablet Take 1 (32327) tablet by mouth once daily. 90 tablet 3 08/04/2020 Active Comment: Take 1 tablet by mouth once daily. Amitriptyline amitriptyline (ELAVIL) 50 03-11-2020 [facility] mg tablet Take 0.5 (97831) tablets by mouth daily at bedtime. 0 03/11/2020 Active Comment: Take 0.5 tablets by mouth da jeri at bedtime. Amoxicillin / amoxicillin-clavulanic acid 06-24-2020 - Mario ([facility] ) [facility] Cl[facility]an[facility] (AUGMENTIN) 875-125 mg per 07-08-2020 [facility] (95940) tablet Indications: Bacterial sinusitis Take 1 tablet by mouth twice daily for 14 days. 28 tablet 0 06/24/2020 07/08/2020 Active Comment: Take 1 tablet by mouth twice daily for 14 days. Amphetamine aspartate amphetamine-dextroamphetamine XR [facility] / Amphetamine Sulfate (ADDERALL XR) [address] [facility] (00920) / Dextroamphetamine Take 20 mg by mouth once daily. 0 saccharate / Active Dextroamphetamine Sulfate Comment: Take 20 mg by mouth once mara ly. azelastine azelastine (ASTELIN,ASTEPRO) 02-04-2019 Ramirez sheth [facility] 0.1% nasal spray Use 2 Sprays (50941) in each nostril daily at bedtime. 1 Bottle 11 02/04/2019 Active Comment: Use 2 Sprays in each nostril daily at bedtime. B-complex with B-complex with 06-13-2019 [facility] vitamin C (ALLBEE vitamin C (ALLBEE (4419 5) WITH C) tablet WITH C) tablet Take 1 tablet by mouth once daily. 90 tablet 3 06/13/2019 Active B-complex with vitamin C 06-13-2019 [facility] (39616) (ALLBEE WITH C) tablet Take 1 tablet by mouth once daily. 90 tablet 3 06/13/2019 Active B-complex with vitamin C 06-13-2019 [facility] (04887) (ALLBEE WITH C) tablet Take 1 tablet by mouth once daily. 90 tablet 3 06/13/2019 Active B-complex with vitamin C 06-13-2019 [facility] (84577) (ALLBEE WITH C) tablet Take 1 tablet by mouth once daily. 90 tablet 3 06/13/2019 Active B-complex with vitamin C 06-13-2019 [facility] (31714) (ALLBEE WITH C) tablet Take 1 tablet by mouth once daily. 90 tablet 3 06/13/2019 Active B-complex with vitamin C 06-13-2019 [facility] (38162) (ALLBEE WITH C) tablet Take 1 tablet by mouth once daily. 90 tablet 3 06/13/2019 Active B-complex with vitamin C 06-13-2019 [facility] (64973) (ALLBEE WITH C) tablet Take 1 tablet by mouth once daily. 90 tablet 3 06/13/2019 Active B-complex with vitamin C 06-13-2019 [facility] (64860) (ALLBEE WITH C) tablet Take 1 tablet by mouth once daily. 90 tablet 3 06/13/2019 Active B-complex with vitamin C 06-13-[address] [facility] (04073) (ALLBEE WITH C) tablet Take 1 tablet by mouth once daily. 90 tablet 3 06/13/2019 Active B-complex with vitamin C 06-13-2019 Ra Kathy VillarrealGalvez [facility] (69873) (ALLBEE WITH C) tablet Take 1 tablet by mouth once daily. 90 tablet 3 06/13/2019 Active B-complex with vitamin C 06-13-[address] [facility] (59255) (ALLBEE WITH C) tablet Take 1 tablet by mouth once daily. 90 tablet 3 06/13/2019 Active B-complex with vitamin C 06-13-[address] [facility] (62391) (ALLBEE WITH C) tablet Take 1 tablet by mouth once daily. 90 tablet 3 06/13/2019 Active B-complex with vitamin C 06-13-[address] [facility] (38446) (ALLBEE WITH C) tablet Take 1 tablet by mouth once daily. 90 tablet 3 06/13/2019 Active B-complex with vitamin C 06-13-[address] [facility] (75203) (ALLBEE WITH C) tablet Take 1 tablet by mouth once daily. 90 tablet 3 06/13/2019 Active B-complex with vitamin C 06-13-[address] [facility] (15435) (ALLBEE WITH C) tablet Take 1 tablet by mouth once daily. 90 tablet 3 06/13/2019 Active B-complex with vitamin C 06-13-[address] [facility] (21389) (ALLBEE WITH C) tablet Take 1 tablet by mouth once daily. 90 tablet 3 06/13/2019 Active B-complex with vitamin C 06-13-[address] [facility] (77496) (ALLBEE WITH C) tablet Take 1 tablet by mouth once daily. 90 tablet 3 06/13/2019 Active B-complex with vitamin C 06-13-2019 [facility] (10634) (ALLBEE WITH C) tablet Take 1 tablet by mouth once daily. 90 tablet 3 06/13/2019 Active B-complex with vitamin C 06-13-2019 [facility] (38059) (ALLBEE WITH C) tablet Take 1 tablet by mouth once daily. 90 tablet 3 06/13/2019 Active B-complex with vitamin C 06-13-2019 Ra Kathy VillarrealGalvez [facility] (58790) (ALLBEE WITH C) tablet Take 1 tablet by mouth once daily. 90 tablet 3 06/13/2019 Active Comment: Take 1 tablet by mouth once daily. Bifidobacterium PRODIGEN 31 05-10-2020 Ra Kathy [facility] animalis / billion cell cap [place] (69529) Lactobacillus Take 1 capsule by acidophilus mouth daily at bedtime. 90 capsule 3 05/10/2020 Active Comment: Take 1 capsule by mouth ngozi y at bedtime. Calcium Carbonate OYSCO-500 500 mg 02-06-2020 Rowe Kathy Galvez [facility] calcium (1,250 mg) (65139) tablet Take 1 tablet by mouth twice daily with meals. 60 tablet 5 02/06/2020 Active Comment: Take 1 tablet by mouth twice daily with meals. Calcium Carbonate / lsskima-ntbnbeyzu-favdhyn D3 [facility]-21-2020 [facility] Ch[facility]ol (CALCIUM 500+D) 500 [facility] mg(1,250mg) -200 unit per (1 6892) tablet Indications: Muscle twitching Take 1 tablet by mouth twice daily with meals. 90 tablet 3 06/21/2020 Active Comment: Take 1 tablet by mouth twice daily with meals. Cetirizine cetirizine (ZYRTEC) 10 mg 02-24-2020 Ramirez Arora [facility] (39447) tablet Take 1 tablet by mouth once daily as needed. 30 tablet 7 02/24/2020 Active Comment: Take 1 tablet by mouth once daily as needed. Cholecalciferol cholecalciferol (VITAMIN 06-30-2020 Rowe Kathy thomas [facility] D3) 50 mcg (2,000 unit) (441 95) tablet Indications: Muscle twitching Take 1 tablet by mouth once daily. 90 tablet 3 06/30/2020 Active cholecalciferol (VITAMIN D3) 06-13-2019 Rowe Kathy Galvez [facility] (33526) 2,000 unit tablet Indications: Muscle twitching Take 1 tablet by mouth once daily. 90 tablet 3 06/13/2019 Active Comment: Take 1 tablet by mouth once daily. Clotrimazole clotrimazole 07-14-2020 - Ra Chavez [facility] (LOTRIMIN, CLOTRIM) 1 08-13-2020 [facility] (85759 ) % cream Apply to affected area twice daily. As needed for yeast infection 60 g 1 07/14/2020 08/13/2020 Active Comment: Apply to affected area twice daily. As needed for yeast infection cornstarch / [place] Zirmxd-Brqhnp-Hokb 11-21-2019 - Ra Morris [facility] / Zinc Oxide (GOLD SOLANO 08-25-2020 [facility] (44 195) Oxide MEDICATED BABY) 79-4-15 % powd Indications: Intertrigo Apply 1 application to affected area twice daily as needed (intertrigo). 1 Bottle 3 08/26/2020 Active Comment: Apply 1 application to affec gonzález area twice daily as needed (intertrigo). cyclobenzaprine cyclobenzaprine (FLEXERIL) 10-22-2019 Meryl (Talib p) [facility] 10 mg tablet Indications: Codey (4 1450) Arthralgia of left temporomandibular joint Take 1 tablet by mouth three times daily as needed for Muscle Spasm. 30 tablet 0 10/22/2019 Active Comment: Take 1 tablet by mouth three times daily as needed for Muscle Spasm. EPINEPHrine EPINEPHrine Base 07-27-2020 [facility] (SYMJEPI) 0.3 mg/0.3 mL (441 95) syrg Use as directed for allergic reaction. Seek emergent medical care immediately after use. 2 Syringe 1 07/27/2020 Active EPINEPHrine (EPIPEN) 0.3 mg/0.3 mL 03-11-2020 [facility] (01958) auto-injector Inject 0.3 mL intramuscularly as needed (for allergic reaction.Seek emergent medical care immediately after use.Disp:one 2-pack w/education trainer). 1 Each 1 03/11/2020 Active Comment: Inject 0.3 mL intramuscularl y as needed (for allergic reaction.Seek emergent medical care immediately aft er use.Disp:one 2-pack w/education trainer). Use as directed for allergic reaction. Seek emergent medical care immediately after use. Famotidine famotidine (PEPCID) 20 07-14-2019 Ra Galvez [facility] mg tablet Indications: (4419 5) GERD with esophagitis Take 1 tablet by mouth twice daily. 60 tablet 07/14/2019 Active Comment: Take 1 tablet by mouth twice daily. fluticasone / fluticasone-salmeterol HFA 01-26-2020 [facility] salmeterol (ADVAIR HFA) 115-21 [facility] ( 01310) mcg/actuation inhaler Inhale 2 Puffs as instructed twice daily. Use with spacer. Rinse mouth out after use. 1 Inhaler 01/26/2020 Active fluticasone-salmeterol HFA (ADVAIR 01-26-2020 [facility] HFA) 115-21 mcg/actuation inhaler (08426) Inhale 2 Puffs as instructed twice daily. Use with spacer. Rinse mouth out after use. 1 Inhaler 01/26/2020 Active fluticasone-salmeterol HFA (ADVAIR 01-26-2020 [facility] HFA) 115-21 mcg/actuation inhaler (74173) Inhale 2 Puffs as instructed twice daily. Use with spacer. Rinse mouth out after use. 1 Inhaler 01/26/2020 Active fluticasone-salmeterol HFA (ADVAIR 01-26-2020 [facility] HFA) 115-21 mcg/actuation inhaler (40615) Inhale 2 Puffs as instructed twice daily. Use with spacer. Rinse mouth out after use. 1 Inhaler 01/26/2020 Active fluticasone-salmeterol HFA (ADVAIR 01-26-2020 [facility] HFA) 115-21 mcg/actuation inhaler (93700) Inhale 2 Puffs as instructed twice daily. Use with spacer. Rinse mouth out after use. 1 Inhaler 01/26/2020 Active fluticasone-salmeterol HFA (ADVAIR 01-26-2020 [facility] HFA) 115-21 mcg/actuation inhaler (57038) Inhale 2 Puffs as instructed twice daily. Use with spacer. Rinse mouth out after use. 1 Inhaler 01/26/2020 Active fluticasone-salmeterol HFA (ADVAIR 01-26-2020 Ramirez A [facility] HFA) 115-21 mcg/actuation inhaler (24911) Inhale 2 Puffs as instructed twice daily. Use with spacer. Rinse mouth out after use. 1 Inhaler 01/26/2020 Active fluticasone-salmeterol HFA (ADVAIR 01-26-2020 Ramirez A [facility] HFA) 115-21 mcg/actuation inhaler (65985) Inhale 2 Puffs as instructed twice daily. Use with spacer. Rinse mouth out after use. 1 Inhaler 01/26/2020 Active fluticasone-salmeterol HFA (ADVAIR 01-26-2020 Ramirez A [facility] HFA) 115-21 mcg/actuation inhaler (87314) Inhale 2 Puffs as instructed twice daily. Use with spacer. Rinse mouth out after use. 1 Inhaler 01/26/2020 Active fluticasone-salmeterol HFA (ADVAIR 01-26-2020 Ramirez A [facility] HFA) 115-21 mcg/actuation inhaler (33826) Inhale 2 Puffs as instructed twice daily. Use with spacer. Rinse mouth out after use. 1 Inhaler 01/26/2020 Active fluticasone-salmeterol HFA (ADVAIR 01-26-2020 [facility] A [facility] HFA) 115-21 mcg/actuation inhaler (38813) Inhale 2 Puffs as instructed twice daily. Use with spacer. Rinse mouth out after use. 1 Inhaler 01/26/2020 Active fluticasone-salmeterol HFA (ADVAIR 01-26-2020 [facility] A [facility] HFA) 115-21 mcg/actuation inhaler (72719) Inhale 2 Puffs as instructed twice daily. Use with spacer. Rinse mouth out after use. 1 Inhaler 01/26/2020 Active fluticasone-salmeterol HFA (ADVAIR 01-26-2020 [facility] A [facility] HFA) 115-21 mcg/actuation inhaler (98372) Inhale 2 Puffs as instructed twice daily. Use with spacer. Rinse mouth out after use. 1 Inhaler 01/26/2020 Active fluticasone-salmeterol HFA (ADVAIR 01-26-2020 Ramirez A [facility] HFA) 115-21 mcg/actuation inhaler (04874) Inhale 2 Puffs as instructed twice daily. Use with spacer. Rinse mouth out after use. 1 Inhaler 01/26/2020 Active fluticasone-salmeterol HFA (ADVAIR 01-26-2020 [facility] A [facility] HFA) 115-21 mcg/actuation inhaler (23620) Inhale 2 Puffs as instructed twice daily. Use with spacer. Rinse mouth out after use. 1 Inhaler 01/26/2020 Active fluticasone-salmeterol HFA (ADVAIR 01-26-2020 [facility] A [facility] HFA) 115-21 mcg/actuation inhaler (79276) Inhale 2 Puffs as instructed twice daily. Use with spacer. Rinse mouth out after use. 1 Inhaler 01/26/2020 Active fluticasone-salmeterol HFA (ADVAIR 01-26-2020 [facility] A [facility] HFA) 115-21 mcg/actuation inhaler (86621) Inhale 2 Puffs as instructed twice daily. Use with spacer. Rinse mouth out after use. 1 Inhaler 01/26/2020 Active fluticasone-salmeterol HFA (ADVAIR 01-26-2020 Ramirez A [facility] HFA) 115-21 mcg/actuation inhaler (39212) Inhale 2 Puffs as instructed twice daily. Use with spacer. Rinse mouth out after use. 1 Inhaler 01/26/2020 Active fluticasone-salmeterol HFA (ADVAIR 01-26-2020 [facility] A [facility] HFA) 115-21 mcg/actuation inhaler (59716) Inhale 2 Puffs as instructed twice daily. Use with spacer. Rinse mouth out after use. 1 Inhaler 01/26/2020 Active fluticasone-salmeterol HFA (ADVAIR 01-26-2020 [facility] A [facility] HFA) 115-21 mcg/actuation inhaler (35624) Inhale 2 Puffs as instructed twice daily. Use with spacer. Rinse mouth out after use. 1 Inhaler 11 01/26/2020 Active Comment: Inhale 2 Puffs as instructed twice daily. Use with spacer. Rinse mouth out after use. gabapentin gabapentin 06-21-2020 - [facility] (NEURONTIN) 100 mg 09-27-2020 (19623) capsule Indications: Chronic pain syndrome , Myalgia Take 1 capsule by mouth three times daily for 98 days. 90 capsule 1 06/21/2020 09/27/2020 Active Comment: Take 1 capsule by mouth thre e times daily for 98 days. guaiFENesin guaiFENesin (MUCINEX) 06-24-2020 Mario (Traffic Officer) [facility] 600 mg 12 hr tablet [facility] (30065) Take 2 tablets by mouth twice daily as needed. 60 tablet 2 06/24/2020 Active Comment: Take 2 tablets by mouth twic e daily as needed. Ketotifen ketotifen fumarate 02-04-2019 Ramirez Block [facility] (58497) (ZADITOR) 0.025 % (0.035 %) ophthalmic solution One drop to each eye 2 to 3 times a day as needed. 1 Bottle 11 02/04/2019 Active Comment: One drop to each eye 2 to 3 times a day as needed. Lactobacillus reuteri L. rhamnosus-L. 04-07-2019 [facility] / Lactobacillus reuteri (MING [facility] (39170) rhamnosus GG PRO-B) 2.5 billion cell cap Take 1 capsule by mouth daily at bedtime. 90 capsule 3 04/07/2019 Active Comment: Take 1 capsule by mouth ngozi y at bedtime. lamoTRIgine lamoTRIgine (LAMICTAL) 07-14-2020 [facility] 25 mg tablet Take 1 (78824) tablet by mouth once daily. 0 07/14/2020 Active lamoTRIgine (LAMICTAL) 25 06-19-2020 - 07-14-2020 [facility] Provider [facility] mg tablet Take 25 mg by (48947) mouth twice daily. 0 06/19/2020 07/14/2020 Discontinued Comment: Take 1 tablet by mouth once daily. Take 25 mg by mouth twice da jeri. LORazepam LORazepam (ATIVAN) 0.5 mg tab [facility] ([facility]169[facility] by mouth at bedtime as needed. 0 Active Comment: Take by mouth at bedtime as needed. Magnesium Oxide Magnesium Oxide 500 02-02-2020 [facility] mg tab Take 1 tablet (90203) by mouth once daily. 90 tablet 3 02/02/2020 Active Comment: Take 1 tablet by mouth once daily. meloxicam meloxicam (MOBIC) 15 mg 01-14-2020 [facility] tablet Take 0.5-1 (01742) tablets by mouth once daily. As needed for pain, Take with food. 90 tablet 1 01/14/2020 Active Comment: Take 0.5-1 tablets by mouth once daily. As needed for pain, Take with food. methylPREDNISolone methylPREDNISolone 06-24-2020 - Mario ([facility]) Cl sumanth (MEDROL, LESLIE,) 4 mg 06-30-2020 [facility] ( 10906) Dose-Pack Indications: Bacterial sinusitis Follow dosing instructions, take with food. 1 Package 0 06/24/2020 06/30/2020 Active methylPREDNISolone (MEDROL, 06-24-2020 - Mario ([facility]) [facility] 4 mg Dose-Pack 06-30-2020 [facility] (90582) Indications: Bacterial sinusitis Follow dosing instructions, take with food. 1 Package 0 06/24/2020 06/30/2020 Active Comment: Follow dosing instructions, take with food. Nystatin nystatin (MYCOSTATIN) 02-02-2020 [facility] powder Apply 1 (34137) application to affected area four times daily. As needed for yeast rash 1 Bottle 1 02/02/2020 Active Comment: Apply 1 application to affec gonzález area four times daily. As needed for yeast rash rizatriptan rizatriptan (MAXALT) 09-23-2018 - Mario ([facility]) [facility] 10 mg tablet 06-30-2020 [facility] (58941) Indications: New daily persistent headache Take 1 tablet by mouth as needed for Migraine Headache (see administration instructions). May repeat in 2 hours if needed 12 tablet 3 06/30/2020 Active Comment: Take 1 tablet by mouth as ne eded for Migraine Headache (see administration instructions). May repeat in 2 hours if needed topiramate topiramate (TOPAMAX) 50 mg tablet [facility] Pro vider [facility] (77975) Take 50 mg by mouth twice daily. 0 Active Comment: Take 50 mg by mouth twice da jeri. Triamcinolone triamcinolone acetonide 02-04-2019 Ramirez Carrillo Michael [facility] (NASACORT AQ) 55 mcg (99882) nasal inhaler Use 2 Sprays in each nostril every morning. 1 Bottle 11 02/04/2019 Active Comment: Use 2 Sprays in each nostril every morning. Vitamin B Complex vitamin b complex (B 06-07-2018 Yojana L ([facility]) [facility] COMPLETE) tab [facility] (64936) Indications: Muscle twitching Take 1 tablet by mouth once daily. 90 tablet 3 06/07/2018 Active vitamin b complex (B 06-07-2018 Yojana L ([facility]) [facility] COMPLETE) tab Indications: (4419 5) Muscle twitching Take 1 tablet by mouth once daily. 90 tablet 3 06/07/2018 Active vitamin b complex (B 06-07-2018 Yojana L ([facility] COMPLETE) tab Indications: (4419 5) Muscle twitching Take 1 tablet by mouth once daily. 90 tablet 3 06/07/2018 Active vitamin b complex (B 06-07-2018 Yojana L ([facility]) [facility] COMPLETE) tab Indications: (4419 5) Muscle twitching Take 1 tablet by mouth once daily. 90 tablet 3 06/07/2018 Active vitamin b complex (B 06-07-2018 Yojana L ([facility]) [facility] COMPLETE) tab Indications: (4419 5) Muscle twitching Take 1 tablet by mouth once daily. 90 tablet 3 06/07/2018 Active vitamin b complex (B 06-07-2018 Yojana L ([facility]) [facility] COMPLETE) tab Indications: (4419 5) Muscle twitching Take 1 tablet by mouth once daily. 90 tablet 06/07/2018 Active vitamin b complex (B 06-07-2018 Yojana L ([facility]) [facility] COMPLETE) tab Indications: (4419 5) Muscle twitching Take 1 tablet by mouth once daily. 90 tablet 3 06/07/2018 Active vitamin b complex (B 06-07-2018 Yojana L ([facility]) [facility] COMPLETE) tab Indications: (4419 5) Muscle twitching Take 1 tablet by mouth once daily. 90 tablet 3 06/07/2018 Active vitamin b complex (B 06-07-2018 Yojana L ([facility]) [facility] COMPLETE) tab Indications: (4419 5) Muscle twitching Take 1 tablet by mouth once daily. 90 tablet 3 06/07/2018 Active vitamin b complex (06-07-2018 Yojana L ([facility]) [facility] COMPLETE) tab Indications: (4419 5) Muscle twitching Take 1 tablet by mouth once daily. 90 tablet 06/07/2018 Active vitamin b complex (06-07-2018 Yojana L ([facility]) [facility] COMPLETE) tab Indications: (4419 5) Muscle twitching Take 1 tablet by mouth once daily. 90 tablet 06/07/2018 Active vitamin b complex (06-07-2018 Yojana L ([facility]) [facility] COMPLETE) tab Indications: (4419 5) Muscle twitching Take 1 tablet by mouth once daily. 90 tablet 06/07/2018 Active vitamin b complex (06-07-2018 Yojana L ([facility]) [facility] COMPLETE) tab Indications: (4419 5) Muscle twitching Take 1 tablet by mouth once daily. 90 tablet 06/07/2018 Active vitamin b complex (06-07-2018 Yojana L (Traffic Officer) [facility] COMPLETE) tab Indications: (4419 5) Muscle twitching Take 1 tablet by mouth once daily. 90 tablet 06/07/2018 Active vitamin b complex (06-07-2018 Yojana L (Traffic Officer) [facility] COMPLETE) tab Indications: (4419 5) Muscle twitching Take 1 tablet by mouth once daily. 90 tablet 06/07/2018 Active vitamin b complex (06-07-2018 Yojana L ([facility]) [facility] COMPLETE) tab Indications: (4419 5) Muscle twitching Take 1 tablet by mouth once daily. 90 tablet 06/07/2018 Active vitamin b complex (06-07-2018 Yojana L (Traffic Officer) [facility] COMPLETE) tab Indications: (4419 5) Muscle twitching Take 1 tablet by mouth once daily. 90 tablet 3 06/07/2018 Active vitamin b complex (B 06-07-2018 Yojana L (Traffic Officer) [facility] COMPLETE) tab Indications: (4419 5) Muscle twitching Take 1 tablet by mouth once daily. 90 tablet 3 06/07/2018 Active vitamin b complex (B 06-07-2018 Yojana L (Traffic Officer) [facility] COMPLETE) tab Indications: (4419 5) Muscle twitching Take 1 tablet by mouth once daily. 90 tablet 3 06/07/2018 Active vitamin b complex (B 06-07-2018 Yojana L (Traffic Officer) [facility] COMPLETE) tab Indications: (4419 5) Muscle twitching Take 1 tablet by mouth once daily. 90 tablet 3 06/07/2018 Active Comment: Take 1 tablet by mouth once daily. ziprasidone ziprasidone (GEODON) 40 mg [facility] Provider C [facility] (64307) capsule Take 40 mg by mouth daily with dinner. 0 Active Comment: Take 40 mg by mouth daily wi th dinner. Problems Active Problems Category Problem Name Status Date Location Administrative/social Stress Active 08-14-2018 - [facility] admission (15172) Asthma Moderate persistent Active 11-02-2014 - [facility] asthma (51473) Disorders of lipid Dyslipidemia Active 01-14-2020 - [facility] metabolism (88037) Genitourinary symptoms Microscopic hematuria Active [facility] and ill-defined (03348) conditions Headache; including Refractory migraine Active 04-08-2019 - [facility] migraine (98983) Miscellaneous mental Dissociative Active 08-14-2018 - [facility] health disorders convulsions (81575) Mood disorders Severe manic bipolar I Active 08-14-2018 - [facility] 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 Nutritional deficiencies Vitamin D deficiency Active [facility] (99967) Other inflammatory Intertrigo Active 04-08-2019 - [facility] condition of skin (97308) Other nervous system Disturbance of Active 01-29-2019 - [facility] disorders attention (26300) Other nutritional; Morbid obesity Active 11-21-2006 - [facility] endocrine; and metabolic (44 195) disorders Other upper respiratory Allergic rhinitis due Active 01-25-20 - [facility] disease to pollen (53578) Other upper respiratory Allergic rhinitis due Active 01-25-20 - [facility] disease to animals (72143) Other upper respiratory Allergic rhinitis due Active 01-25-20 18 - [facility] disease to house dust mite (01912) Other upper respiratory Allergic rhinitis Active [facility] disease (54104) Residual codes; Obstructive sleep Active 08-19-2007 - [facility] unclassified apnea syndrome (74159) Unclassified Patient encounter Active 01-29-2019 - [facility] status (96586) Unclassified Long-term current use Active 08-22-2018 - [facility] of drug therapy (83097) Unclassified Unknown / UNK(Unknown) Active 02-26-2018 - [facility] (46557) Past or Other Problems Category Problem Name Status Date Location Calculus of urinary Ureteric stone Completed 02-15-2018 - [facility] tract (41984) Diabetes mellitus Impaired fasting Completed 01-14-2020 - [facility] without complication glycaemia (98229) Epilepsy; convulsions Seizure Completed 09-23-2018 - [facility] (32421) Other connective tissue Muscle pain Completed 01-29-2019 - [facility] disease (57946) Other nervous system Chronic pain Completed 01-29-2019 - [facility] disorders syndrome (78814) Poisoning by Toxic effect of Completed 11-28-2018 - [facility] inic nonmedicinal substances venom (441 95) Results Result Name Value Range Unit Interpretation Flag Date Location obsolete on 2020-08 OBSOLETE Refill (FAMPWS) Normal 08-25-2020 [facility] BHAVESH BEAULIEU ([id number]) 1975 F [facility] Date Time Provider Department ([id number]) 08/25/20 RA GALVEZ FAMPWS During your visit today, we recorded the following informati on about you: Fallon Blackwood Ma 08/26/2020 9:09 AM Signed Patient has been identified by name and date of : Yes Pending Prescriptions Disp Refills GOLD SOLANO MEDICATED BABY 79 %-4 %-15 % TOPICAL POWDER 1 Meaghan le 3 Sig: Apply 1 application to affected area twice daily as nee ded (intertrigo). EPI: No RX INSTRUCTIONS: Patient aware RX will be sent to pharmacy. No need to notify patient. Fallon Starr APRN.CNP 08/26/2020 3:24 PM Signed The following approved medic ation requests have been transmitted electronically. Pending Prescriptions Disp Refills GOLD SOLANO MEDICATED BABY 79 %-4 %-15 % TOPICAL POWDER 1 Meaghan le 3 Sig: Apply 1 application to affected area twice daily as nee ded (intertrigo). EPI: No Mario Starr APRN.CNP Allergies As of Date: 08/25/2020 Noted Allergy Reaction BETA BLOCKERS (BETA-BLOCKERS (BET*2013 15 - Contraindication-Medical Sharma* Comments: Avoid use of beta blockers and KERRIE inhibitors sinc e patient is on venom immunotherapy KERRIE INHIBITORS 11/02/2014 15 - Contraindication-Medical Sharma* Comments: Avoid use of beta blockers and KERRIE inhibitors sinc e patient is on venom immunotherapy Environmental Allergies [Other] 12/25/2006 Comments: Grasses, molds, dust mites, cats, cockroaches LEXAPRO (ESCITALOPRAM OXALATE) 10/30/2018 5 - Intolerance Comments: altered mood PROZAC (FLUOXETINE HCL) 10/30/2018 5 - Intolerance Comments: altered mood TRINTELLIX (VORTIOXETINE) 01/08/2020 1 - Mental Status Carbajal e VENOM-WASP 09/26/2007 VENOM-YELLOW HORNET 09/26/2007 16 - Unknown Comments: Yellow and white faced hornet VENOM-YELLOW JACKET PROTEIN 09/26/2007 VIIBRYD (VILAZODONE) 05/17/2020 1 - Mental Status Change Comments: agitated WELLBUTRIN (BUPROPION HCL) 05/08/2019 2 - Rash Comments: Agitation ZOLOFT (SERTRALINE HCL) 10/30/2018 5 - Intolerance Comments: altered mood Date Reviewed: 07/14/2020 Reviewed by: Ra Galvez - Fully Assessed Reason for Visit: Refill Request [94] Visit Diagnosis:Intertrigo [L30.4] Order(s):[place] Fjtfyk-Yvocll-Ujkx Oxide (GOLD SOLANO MEDICATE D BABY) 79-4-15 % powdApply 1 application to affected area twice daily as need ed (intertrigo).Disp: 1 BottleRfl: 3 Prescriptions as of 08/25/2020 Sig: GOLD SOLANO MEDICATED BABY 79 %* Apply 1 application to affect * ALLOPURINOL 300 MG TABLET Take 1 tablet by mouth once d* SYMJEPI 0.3 MG/0.3 ML INJECTI* Use as directed for allergic * LAMOTRIGINE 25 MG TABLET Take 1 tablet by mouth once d* CHOLECALCIFEROL (VITAMIN D3) * Take 1 tablet by mouth once d * RIZATRIPTAN 10 MG TABLET Take 1 tablet by mouth as nee* MUCINEX 600 MG TABLET, EXTEND* Take 2 tablets by mouth twice * GABAPENTIN 100 MG CAPSULE Take 1 capsule by mouth three* CALCIUM CARBONATE 500 MG (1,2* Take 1 tablet by mouth twice * PRODIGEN 31 BILLION CELL CAPS* Take 1 capsule by mouth daily * ALBUTEROL SULFATE HFA 90 MCG/* Inhale 2 Puffs as instructed * AMITRIPTYLINE 50 MG TABLET Take 0.5 tablets by mouth mara* EPINEPHRINE 0.3 MG/0.3 ML INJ* Inject 0.3 mL intramuscularly * CETIRIZINE 10 MG TABLET Take 1 tablet by mouth once d* OYSCO-500 500 MG CALCIUM (1,* Take 1 tablet by mouth twice * MAGNESIUM OXIDE 500 MG TABLET Take 1 tablet by mouth once d* NYSTATIN 100,000 UNIT/GRAM TO* Apply 1 application to affect * FLUTICASONE PROPIONATE 115 MC* Inhale 2 Puffs as instructed * MELOXICAM 15 MG TABLET Take 0.5-1 tablets by mouth o* Patient not taking: Reported on 06/24/2020 CYCLOBENZAPRINE 10 MG TABLET Take 1 tablet by mouth three * Patient not taking: Reported on 06/24/2020 ALBUTEROL SULFATE 2.5 MG/3 ML* Use 3 mL via nebulizer every * DEXTROAMPHETAMINE-AMPHETAMINE* Take 20 mg by mouth once ngozi * FAMOTIDINE 20 MG TABLET Take 1 tablet by mouth twice * B-COMPLEX WITH VITAMIN C TABL* Take 1 tablet by mouth once d * LACTOBACILLUS RHAMNOSUS GG-LA* Take 1 capsule by mouth daily * LORAZEPAM 0.5 MG TABLET Take by mouth at bedtime as n* TRIAMCINOLONE ACETONIDE 55 MC* Use 2 Sprays in each nostril * AZELASTINE 137 MCG (0.1 %) NA* Use 2 Sprays in each nostril * Patient not taking: Reported on 06/24/2020 KETOTIFEN 0.025 % (0.035 %) E* One drop to each eye 2 to 3 t * TOPIRAMATE 50 MG TABLET Take 50 mg by mouth twice mara* ZIPRASIDONE 40 MG CAPSULE Take 40 mg by mouth daily wit* VITAMIN B COMPLEX TABLET Take 1 tablet by mouth once d* Problem List As Of Date 08/25/2020 Noted Resolved ASTHMA UNSPECIFIED [J45.909] 11/02/2014 Allergic rhinitis due to fungal spores [J30.89] More... Obesity, Class III, BMI 40-49.9 (morbid obesity*11/21/2006 Obstructive sleep apnea [G47.33] 08/19/2007 Toxic effect of venom [T63.91XA] 09/23/2007 11/28/2018 Moderate persistent asthma [J45.40] 11/02/2014 Allergic rhinitis due to dust mite [J30.89] 01/24/2018 Allergic rhinitis due to cat hair [J30.81] 01/24/2018 Seasonal allergic rhinitis due to pollen [J30.1]01/24/2018 Right ureteral calculus [N20.1] 02/15/2018 More... Nonspecific paroxysmal spell [R40.4] 08/14/2018 09/24/2018 Psychogenic nonepileptic seizure [F44.5] 08/14/2018 Transient alteration of awareness [R40.4] 08/14/2018 018 Concern about neurological disease without diag*08/14/2018 1 11/24/2017 Psychosocial stressors [Z65.8] 08/14/2018 Episodic mood disorder (HCC) [F39] 08/14/2018 Convulsions (HCC) [R56.9] 09/23/2018 Other group home (current) drug therapy [Z79.899]08/22/2018 Severe manic bipolar I disorder with psychotic *09/24/2018 Toxic effect of venom [T63.91XA] 11/28/2018 Myalgia [M79.10] 01/29/2019 Chronic pain syndrome [G89.4] 01/29/2019 Concentration deficit [R41.840] 01/29/2019 Screening for breast cancer [Z12.39] 01/29/2019 Bipolar disorder, current episode mixed, modera*04/08/2019 Intractable migraine without status migrainosus*04/08/2019 Intertrigo [L30.4] 04/08/2019 Dyslipidemia [E78.5] 01/14/2020 IFG (impaired fasting glucose) [R73.01] 01/14/2020 Prescriptions ordered this encounter Disp Refills Start End GOLD SOLANO MEDICATED BABY 79 %-4 %-15* 1 Bacilio* 3 08/26/2020 Route: TOPICAL Sig: Apply 1 application to affected area twice daily as needed (intertrigo). Medications Discontinued During This Encounter Prescriptions - [place] Eqkpig-Isowsv-Hvxv Oxide (GOLD SOLANO MEDICATED BABY) 7 9-4-15 % powd (Discontinued) Apply 1 application to affected area twice daily as ne eded (intertrigo). Not medicated Encounter Status:Closed by MARIO STARR on 08/26/20 cnpn on 2020-08-10 CNPN Telephone (ALLMED) Normal 08-10-[address] BHAVESH BEAULIEU ([id number]) 1975 F [facility] Date Time Provider Department ([id number]) 08/10/20 RAMIREZ BLOCK During your visit today, we recorded the following informati on about you: Ramirez Block MD 08/10/2020 8:46 AM Signed ----- Message from Ramirez Block sent at 08/09/2020 2:45 PM E DT ----- ----- Message ----- From: Marie Angel LPN Sent: 08/09/2020 2:19 PM EDT To: Ashwini Chu RN, Ramirez Block, # Hey ladies, Patient had called earlier today to nurse triage to see if h er vials had that I have on hand. I let them know I w ouldn't know for sure until I am at [facility] on Sunday, however, it appea rs she would have been starting at the lowest dose of this vial. When I called her the end of May to let her know her vials were in [place], she declined to schedule. I am thinking if her vials are not , the concentration is likely still not appropriate. Last injection was 02/24 in [place]. It looks like she is scheduled for follow up with you in Aug brandee. Let me know how you feel we should proceed! Thanks! Alyssa Block MD 08/10/2020 8:51 AM Signed [place] allergy nurses: Please contact patient. Due to the prolonged interval since her last set of injectio ns, recommend backing up to the starting dose of mixed vespid 3 mcg/ml a nd wasp 1 mcg/ml. Does she want to proceed? If so, it may be best to tabares ld back up to the maintenance dose at at [facility]. From staff message from Alyssa Angel on 08/09/20 Patient had called earlier today to nurse triage to see if her vials had that I have on hand. ?I let them know I wouldn't know for sure until I am at [facility] on Sunday, however, it appea rs she would have been starting at the lowest dose of this vial. ?When I called her the end o may to let her know her vials were in [place], she declined to schedule. I am thinking if her vials are not , the concentration is likely still not appropriate. ?Last injection was 02/24 in [place]. It looks like she is scheduled for follow up with you in Aug brandee.? Edna Tarango RN 08/10/2020 9:24 AM Signed Spoke with patient. She no longer has a car so she has to postpone injections. Follow up appt scheduled for August and she will discuss it then. Allergies As of Date: 08/10/2020 Noted Allergy Reaction BETA BLOCKERS (BETA-BLOCKERS (BET*2013 15 - Contraindication-Medical Sharma* Comments: Avoid use of beta blockers and KERRIE inhibitors sinc e patient is on venom immunotherapy KERRIE INHIBITORS 11/02/2014 15 - Contraindication-Medical Sharma* Comments: Avoid use of beta blockers and KERRIE inhibitors sinc e patient is on venom immunotherapy Environmental Allergies [Other] 12/25/2006 Comments: Grasses, molds, dust mites, cats, cockroaches LEXAPRO (ESCITALOPRAM OXALATE) 10/30/2018 5 - Intolerance Comments: altered mood PROZAC (FLUOXETINE HCL) 10/30/2018 5 - Intolerance Comments: altered mood TRINTELLIX (VORTIOXETINE) 01/08/2020 1 - Mental Status Carbajal e VENOM-WASP 09/26/2007 VENOM-YELLOW HORNET 09/26/2007 16 - Unknown Comments: Yellow and white faced hornet VENOM-YELLOW JACKET PROTEIN 09/26/2007 VIIBRYD (VILAZODONE) 05/17/2020 1 - Mental Status Change Comments: agitated WELLBUTRIN (BUPROPION HCL) 05/08/2019 2 - Rash Comments: Agitation ZOLOFT (SERTRALINE HCL) 10/30/2018 5 - Intolerance Comments: altered mood Date Reviewed: 07/14/2020 Reviewed by: Ra Galvez - Fully Assessed Reason for Visit: Immunotherapy [409] Prescriptions as of 08/10/2020 Sig: ALLOPURINOL 300 MG TABLET Take 1 tablet by mouth once d* SYMJEPI 0.3 MG/0.3 ML INJECTI* Use as directed for allergic * LAMOTRIGINE 25 MG TABLET Take 1 tablet by mouth once d* CLOTRIMAZOLE 1 % TOPICAL CREAM Apply to affected area twice * CHOLECALCIFEROL (VITAMIN D3) * Take 1 tablet by mouth once d * RIZATRIPTAN 10 MG TABLET Take 1 tablet by mouth as nee* MUCINEX 600 MG TABLET, EXTEND* Take 2 tablets by mouth twice * GABAPENTIN 100 MG CAPSULE Take 1 capsule by mouth three* CALCIUM CARBONATE 500 MG (1,2* Take 1 tablet by mouth twice * PRODIGEN 31 BILLION CELL CAPS* Take 1 capsule by mouth daily * ALBUTEROL SULFATE HFA 90 MCG/* Inhale 2 Puffs as instructed * AMITRIPTYLINE 50 MG TABLET Take 0.5 tablets by mouth mara* EPINEPHRINE 0.3 MG/0.3 ML INJ* Inject 0.3 mL intramuscularly * CETIRIZINE 10 MG TABLET Take 1 tablet by mouth once d* OYSCO-500 500 MG CALCIUM (1,* Take 1 tablet by mouth twice * MAGNESIUM OXIDE 500 MG TABLET Take 1 tablet by mouth once d* NYSTATIN 100,000 UNIT/GRAM TO* Apply 1 application to affect * FLUTICASONE PROPIONATE 115 MC* Inhale 2 Puffs as instructed * MELOXICAM 15 MG TABLET Take 0.5-1 tablets by mouth o* Patient not taking: Reported on 06/24/2020 GOLD SOLANO MEDICATED BABY 79 %* Apply 1 application to affect * Patient taking differently: Apply 1 application to affect* CYCLOBENZAPRINE 10 MG TABLET Take 1 tablet by mouth three * Patient not taking: Reported on 06/24/2020 ALBUTEROL SULFATE 2.5 MG/3 ML* Use 3 mL via nebulizer every * DEXTROAMPHETAMINE-AMPHETAMINE* Take 20 mg by mouth once ngozi * FAMOTIDINE 20 MG TABLET Take 1 tablet by mouth twice * B-COMPLEX WITH VITAMIN C TABL* Take 1 tablet by mouth once d * LACTOBACILLUS RHAMNOSUS GG-LA* Take 1 capsule by mouth daily * LORAZEPAM 0.5 MG TABLET Take by mouth at bedtime as n* TRIAMCINOLONE ACETONIDE 55 MC* Use 2 Sprays in each nostril * AZELASTINE 137 MCG (0.1 %) NA* Use 2 Sprays in each nostril * Patient not taking: Reported on 06/24/2020 KETOTIFEN 0.025 % (0.035 %) E* One drop to each eye 2 to 3 t * TOPIRAMATE 50 MG TABLET Take 50 mg by mouth twice mara* ZIPRASIDONE 40 MG CAPSULE Take 40 mg by mouth daily wit* VITAMIN B COMPLEX TABLET Take 1 tablet by mouth once d* Problem List As Of Date 08/10/2020 Noted Resolved ASTHMA UNSPECIFIED [J45.909] 11/02/2014 Allergic rhinitis due to fungal spores [J30.89] More... Obesity, Class III, BMI 40-49.9 (morbid obesity*11/21/2006 Obstructive sleep apnea [G47.33] 08/19/2007 Toxic effect of venom [T63.91XA] 09/23/2007 11/28/2018 Moderate persistent asthma [J45.40] 11/02/2014 Allergic rhinitis due to dust mite [J30.89] 01/24/2018 Allergic rhinitis due to cat hair [J30.81] 01/24/2018 Seasonal allergic rhinitis due to pollen [J30.1]01/24/2018 Right ureteral calculus [N20.1] 02/15/2018 More... Nonspecific paroxysmal spell [R40.4] 08/14/2018 09/24/2018 Psychogenic nonepileptic seizure [F44.5] 08/14/2018 Transient alteration of awareness [R40.4] 08/14/2018 018 Concern about neurological disease without diag*08/14/2018 1 11/24/2017 Psychosocial stressors [Z65.8] 08/14/2018 Episodic mood disorder (HCC) [F39] 08/14/2018 Convulsions (HCC) [R56.9] 09/23/2018 Other terminal carman (current) drug therapy [Z79.899]08/22/2018 Severe manic bipolar I disorder with psychotic *09/24/2018 Toxic effect of venom [T63.91XA] 11/28/2018 Myalgia [M79.10] 01/29/2019 Chronic pain syndrome [G89.4] 01/29/2019 Concentration deficit [R41.840] 01/29/2019 Screening for breast cancer [Z12.39] 01/29/2019 Bipolar disorder, current episode mixed, modera*04/08/2019 Intractable migraine without status migrainosus*04/08/2019 Intertrigo [L30.4] 04/08/2019 Dyslipidemia [E78.5] 01/14/2020 IFG (impaired fasting glucose) [R73.01] 01/14/2020 Encounter Status:Closed by EDNA TARANGO RN on 08/10/20 progress on 2020-07 PROGRESS HNO ID: [id number] Normal 08-04-2020 [facility] Author: Nery Hallman ([id number]) Service: Urology Author Type: Physician Type: Progress Notes Filed: 08/05/2020 5:07 PM Note Text: [facility] NOTE DEPARTMENT OF UROLOGY [place] NAME: BHAVESH BEAULIEU KARLA NO.: [id number] DATE OF SERVICE: 08/04/2020 TELEPHONE VISIT Telephone call concerning the repeated elevations of serum u mikki acid level as well as the elevated 24-hour urine for uric acid. I n view of this, I would like to start allopurinol since the patient santacruz s right nephrolithiasis. Orders sent in. Patient is on numerous drug s by her neurologist and she will check to make sure she can take the allopurinol with him. DICTATED BY: Judah Anne JOB# [id number] stone panel i on 08-08-08 Calcium, Urine 24 Hr 273.0 100-300 mg/24 hr Normal 0 [facility] ([id number]) Comment: Performed By: #### STN4 #### [facility] [place], [place] [phone] Citrate, Urine, 24hr 621 160-1361 mg/24hrs Normal 0 [facility] (90286) Comment: Result Comment: This test wa s developed and its performance characteristics determined by [facility] Pathology and Laboratory Medicine [place] ([facility]). It has not been cleared or a pproved by the FDA. [facility] is regulated under CLIA as qualified to perform high complexity testing. This test is used for clinic al purposes. It should not be regarded as investigational or for research. Performed By: #### STN4 #### [place] [address] [place], [place] [phone]- [phone] Creatinine,Urine,24h 1.991 0.8-1.8 g/24 hr High 0 [facility] (55290) Comment: Performed By: #### STN4 #### [facility] [place], [place] [phone] Oxalate, Urine, 24hr 64 4-31 mg/24hrs High 0 [facility] (83684) Comment: Result Comment: This test wa s developed and its performance characteristics determined by [facility] Pathology and Laboratory Medicine [place] ([facility]). It has not been cleared or a pproved by the FDA. [facility] is regulated under CLIA as qualified to perform high complexity testing. This test is used for clinic al purposes. It should not be regarded as investigational or for research. Performed By: #### STN4 #### [place] [address], [place] [phone] Sodium,Urine,24 hr 289 40-220 mmol/24hr High 07-27-2020 [facility] (69432) Comment: Performed By: #### STN4 #### [facility], [place] [phone] Uric Acid,Urine,24hr 757.6 250-750 mg/24hr High 0 [facility] (66206) Comment: Performed By: #### STN4 #### [facility], [place] [phone]- [phone] period / volume on 2020-07-27 Collection End Date Normal 07-27-2020 [facility] (08012) Comment: Performed By: #### STN4 #### [place] [address], [place] [phone]- [phone] Collection End Time 1029 Normal 07-27-2020 [facility] (66451) Comment: Performed By: #### STN4 #### [place] [address], [place] [phone] Collection Start Date Normal 07-27-20 20 [facility] (66566) Comment: Performed By: #### STN4 #### [place] [address], [place] [phone]- [phone] Collection Start Time 1029 Normal 07-27-20 20 [facility] ([id number]) Comment: Performed By: #### STN4 #### [facility], [place] [phone]- [phone] Period 24 hr Normal 07-27-2020 [facility] (54567) Comment: Performed By: #### STN4 #### [place] [address], [place] [phone] Volume 2275 mL Normal 07-27-2020 [facility] ([id number]) Comment: Performed By: #### STN4 #### [facility] [address] [place], [place] [phone]- [phone] cnpn on 2020-07-27 CNPN Telephone (ALLMED) Normal 07-27-[address] BHAVESH BEAULIEU ([id number]) 1975 F [facility] Date Time Provider Department ([id number]) 07/27/20 RAMIREZ BLOCK During your visit today, we recorded the following informati on about you: Edna Tarango RN 07/27/2020 12:16 PM Addendum Epi pen rejected through [place] [facility]. Patient needs Symjepi auto injector prescribed please. 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 Ramirez Block MD 07/27/2020 1:02 PM Signed The following approved medic ation requests have been transmitted electronically. Signed Prescriptions Disp Refills EPINEPHrine Base (SYMJEPI) 0.3 mg/0.3 mL syrg 2 Syringe 1 Sig: Use as directed for allergic reaction. Seek emergent or dical care immediately after use. Authorizing Provider: RAMIREZ BLOCK MD Allergies As of Date: 07/27/2020 Noted Allergy Reaction BETA BLOCKERS (BETA-BLOCKERS (BET*2013 15 - Contraindication-Medical Sharma* Comments: Avoid use of beta blockers and KERRIE inhibitors sinc e patient is on venom immunotherapy KERRIE INHIBITORS 11/02/2014 15 - Contraindication-Medical Sharma* Comments: Avoid use of beta blockers and KERRIE inhibitors sin e patient is on venom immunotherapy Environmental Allergies [Other] 12/25/2006 Comments: Grasses, molds, dust mites, cats, cockroaches LEXAPRO (ESCITALOPRAM OXALATE) 10/30/2018 5 - Intolerance Comments: altered mood PROZAC (FLUOXETINE HCL) 10/30/2018 5 - Intolerance Comments: altered mood TRINTELLIX (VORTIOXETINE) 01/08/2020 1 - Mental Status Carbajal e VENOM-WASP 09/26/2007 VENOM-YELLOW HORNET 09/26/2007 16 - Unknown Comments: Yellow and white faced hornet VENOM-YELLOW JACKET PROTEIN 09/26/2007 VIIBRYD (VILAZODONE) 05/17/2020 1 - Mental Status Change Comments: agitated WELLBUTRIN (BUPROPION HCL) 05/08/2019 2 - Rash Comments: Agitation ZOLOFT (SERTRALINE HCL) 10/30/2018 5 - Intolerance Comments: altered mood Date Reviewed: 07/14/2020 Reviewed by: Ra Galvez - Fully Assessed Reason for Visit: PA epi pen [Other] Order(s):EPINEPHrine Base (SYMJEPI) 0.3 mg/0.3 mL syrgUse as directed for allergic reaction. Seek emergent medical care immediately af ter use.Disp: 2 SyringeRfl: 1 Prescriptions as of 07/27/2020 Sig: SYMJEPI 0.3 MG/0.3 ML INJECTI* Use as directed for allergic * LAMOTRIGINE 25 MG TABLET Take 1 tablet by mouth once d* CLOTRIMAZOLE 1 % TOPICAL CREAM Apply to affected area twice * CHOLECALCIFEROL (VITAMIN D3) * Take 1 tablet by mouth once d * RIZATRIPTAN 10 MG TABLET Take 1 tablet by mouth as nee* MUCINEX 600 MG TABLET, EXTEND* Take 2 tablets by mouth twice * GABAPENTIN 100 MG CAPSULE Take 1 capsule by mouth three* CALCIUM CARBONATE 500 MG (1,2* Take 1 tablet by mouth twice * PRODIGEN 31 BILLION CELL CAPS* Take 1 capsule by mouth daily * ALBUTEROL SULFATE HFA 90 MCG/* Inhale 2 Puffs as instructed * AMITRIPTYLINE 50 MG TABLET Take 0.5 tablets by mouth mara* EPINEPHRINE 0.3 MG/0.3 ML INJ* Inject 0.3 mL intramuscularly * CETIRIZINE 10 MG TABLET Take 1 tablet by mouth once d* OYSCO-500 500 MG CALCIUM (1,* Take 1 tablet by mouth twice * MAGNESIUM OXIDE 500 MG TABLET Take 1 tablet by mouth once d* NYSTATIN 100,000 UNIT/GRAM TO* Apply 1 application to affect * FLUTICASONE PROPIONATE 115 MC* Inhale 2 Puffs as instructed * MELOXICAM 15 MG TABLET Take 0.5-1 tablets by mouth o* Patient not taking: Reported on 06/24/2020 GOLD SOLANO MEDICATED BABY 79 %* Apply 1 application to affect * Patient taking differently: Apply 1 application to affect* CYCLOBENZAPRINE 10 MG TABLET Take 1 tablet by mouth three * Patient not taking: Reported on 06/24/2020 ALBUTEROL SULFATE 2.5 MG/3 ML* Use 3 mL via nebulizer every * DEXTROAMPHETAMINE-AMPHETAMINE* Take 20 mg by mouth once ngozi * FAMOTIDINE 20 MG TABLET Take 1 tablet by mouth twice * B-COMPLEX WITH VITAMIN C TABL* Take 1 tablet by mouth once d * LACTOBACILLUS RHAMNOSUS GG-LA* Take 1 capsule by mouth daily * LORAZEPAM 0.5 MG TABLET Take by mouth at bedtime as n* TRIAMCINOLONE ACETONIDE 55 MC* Use 2 Sprays in each nostril * AZELASTINE 137 MCG (0.1 %) NA* Use 2 Sprays in each nostril * Patient not taking: Reported on 06/24/2020 KETOTIFEN 0.025 % (0.035 %) E* One drop to each eye 2 to 3 t * TOPIRAMATE 50 MG TABLET Take 50 mg by mouth twice mara* ZIPRASIDONE 40 MG CAPSULE Take 40 mg by mouth daily wit* VITAMIN B COMPLEX TABLET Take 1 tablet by mouth once d* Problem List As Of Date 07/27/2020 Noted Resolved ASTHMA UNSPECIFIED [J45.909] 11/02/2014 Allergic rhinitis due to fungal spores [J30.89] More... Obesity, Class III, BMI 40-49.9 (morbid obesity*11/21/2006 Obstructive sleep apnea [G47.33] 08/19/2007 Toxic effect of venom [T63.91XA] 09/23/2007 11/28/2018 Moderate persistent asthma [J45.40] 11/02/2014 Allergic rhinitis due to dust mite [J30.89] 01/24/2018 Allergic rhinitis due to cat hair [J30.81] 01/24/2018 Seasonal allergic rhinitis due to pollen [J30.1]01/24/2018 Right ureteral calculus [N20.1] 02/15/2018 More... Nonspecific paroxysmal spell [R40.4] 08/14/2018 09/24/2018 Psychogenic nonepileptic seizure [F44.5] 08/14/2018 Transient alteration of awareness [R40.4] 08/14/2018 018 Concern about neurological disease without diag*08/14/2018 1 11/24/2017 Psychosocial stressors [Z65.8] 08/14/2018 Episodic mood disorder (HCC) [F39] 08/14/2018 Convulsions (HCC) [R56.9] 09/23/2018 Other group home (current) drug therapy [Z79.899]08/22/2018 Severe manic bipolar I disorder with psychotic *09/24/2018 Toxic effect of venom [T63.91XA] 11/28/2018 Myalgia [M79.10] 01/29/2019 Chronic pain syndrome [G89.4] 01/29/2019 Concentration deficit [R41.840] 01/29/2019 Screening for breast cancer [Z12.39] 01/29/2019 Bipolar disorder, current episode mixed, modera*04/08/2019 Intractable migraine without status migrainosus*04/08/2019 Intertrigo [L30.4] 04/08/2019 Dyslipidemia [E78.5] 01/14/2020 IFG (impaired fasting glucose) [R73.01] 01/14/2020 Prescriptions ordered this encounter Disp Refills Start End SYMJEPI 0.3 MG/0.3 ML INJECTION SYRI* 2 Sy* 1 07/27/2020 Cmt: epi (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 Seek emergent me dical care immediately after use. Encounter Status:Closed by EDNA TARANGO RN on 07/27/20 No panel information on 2020-07-27 Collection duration (U) 24 hr 2019 [facility] ([id number]) Collection end date (U) [id number] 2019 [facility] ([id number]) [Date/time] Collection end time (U) 1029 [facility] ([id number]) [Date/time] Collection start date (U) [id number] [facility] ([id number]) [Date/time] Collection start time (U) 1029 [facility] ([id number]) [Date/time] Specimen volume Unsp time (U) 2275 mL 07-27-2020 [facility] ([id number]) uric acid on 07-20 Urate [Mass/Vol] 6.7 2.5-6.6 mg/dL High 07-20-2020 [facility] ([id number]) pth, intact on 2019 PTH, Intact 41 15-65 pg/mL Normal 07-20-2020 [facility] ([id number]) Comment: Performed By: #### PTHI #### [facility] [id number] [place], [place] [phone] progress on 2020-07 PROGRESS HNO ID: [id number] Normal 07-20-2020 [facility] Author: Derrell Hall (Tech) Mckenna ([id number]) Service: ? Author Type: Msws Type: Progress Notes Filed: 07/20/2020 2:01 PM Note Text: Radiology Service Progress Note PATIENT NAME: Bhavesh Beaulieu DATE OF SERVICE: July 20, 2020 TIME: 2:01 PM PATIENT IDENTITY VERIFICATION COMPLETED USING TWO (2) IDENTI FIERS: Name and Date of confirmed by patient verbally. FALL SCREENING: Has the patient had 2 falls in the last year or 1 fall with injury or currently using an Ambulatory Assistive Devic e (Walker, Cane, Wheelchair, Crutches, etc.)? No PATIENT GENDER DATA: Female. status: : No status: NO. PATIENT RELEVANT IMPLANT DATA REVIEWED: Not Applicable RADIOLOGY DEPARTMENT: CT; Exam(s) Completed: Abdomen/Pelvis PERIPHERAL IV DATA: Not applicable SIGNED BY: Derrell Sultana July 20, 2020 2:[address] flank wo ivcon o n 2020-07-20 CT FLANK WO * * *Final Report* * * Normal 07-20 [facility] IVCON DATE OF EXAM: Jul 20 2020 12:28PM Mckenna ([id number]) [facility] 0529 - CT FLANK WO IVCON / PROCEDURE REASON: multiple diagnoses * * * * Physician Interpretation * * * * EXAMINATION: CT ABDOMEN AND PELVIS WITHOUT IV CONTRAST (Mariah l stone protocol) CLINICAL HISTORY: Unspecified flank pain. Hematuria. TECHNIQUE: Non-contrast imaging of the abdomen and pelvis wa s performed through the urinary tract. Study performed without intraveno us or oral contrast to evaluate for urinary tract calculus. MQ: [id number] Contrast: IV contrast: None Oral contrast: None CT Radiation dose: Integrated dose-length product (DLP) for this visit = 582 mGy*cm. CT Dose Reduction Employed: Automated exposure control(AEC) and iterative recon COMPARISON: 02/12/2018 RESULT: Limitations: Unenhanced imaging is limited for the evaluatio n of some renal and other intra-abdominal and pelvic pathology. Urinary Tract: Bilateral peripelvic cysts Right kidney and ureter: 0.8 x 0.4 cm lower pole nonobstruct ing right renal calculus. 2 phleboliths are seen near the course of the right ureter. Unchanged from the prior study. No definite ureterolithiasis. No hydro nephrosis. No finding to suggest solid mass in the unenhanced kidney. Left kidney and ureter: No calculus. No hydronephrosis. No f inding to suggest solid mass in the unenhanced kidney. Bladder: No calculus. Abdomen and Pelvis: Liver: Unremarkable. Biliary: No biliary dilatation. Gallbladder is unremarkable Spleen: No splenomegaly. Pancreas: Unremarkable. Adrenals: Normal. GI Tract: No bowel dilation. The appendix appears normal Lymph Nodes: No lymphadenopathy. Mesentery/peritoneum: No ascites. Vasculature: The aorta is normal in caliber Pelvis: No mass or ascites. Bones and Soft Tissues: No acute abnormality. Degenerative c hanges throughout. Stable Lower thorax: Unremarkable. Gaggerman (topogram) images: Unremarkable. IMPRESSION: Right nephrolithiasis. Peripelvic renal cysts. No ureterolithiasis or gross obstruc tive uropathy. 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[facility] Transcribe Date/Time: Jul 20 2020 12:39P Dictated by : MARY DREW MD This examination was interpreted and the report reviewed and electronically signed by: MARY DREW MD on Jul 20 2020 12:52PM EST [id number] calcium, total on Calcium [Mass/Vol] 9.0 8.5-10.2 mg/dL Normal 07-20-2020 [facility] ([id number]) No panel information on 2020-07-20 [facility] ([id number]) progress on 2020-06 PROGRESS HNO ID: [id number] Normal 07-14-2020 [facility] Author: Ra Chavez Galvez Mckenna ([id number]) Service: ? Author Type: Physician Type: Progress Notes Filed: 07/14/2020 11:38 AM Note Text: In lieu of an in person visit due to coronavirus COVID 19 pa ndemic concerns, a virtual visit was performed with patient. Luz Maria sow is aware that I am not fully able to assess symptoms and do a full ph ysical exam including vital signs in office at this time. Patient consen ts to the visit. This Team Access Model visit is a virtual encounter. It requ ired patient-provider interaction for the medical decision making as documented below. VIRTUAL VISIT PROGRESS NOTE This is a virtual visit using HIPAA compliant video platform . It required patient-provider interaction for the medical decisi on making as documented below. Bhavesh Beaulieu is a 44 year old female seen for follow up IFG, diet controlled, doing well overall, trying to cut back sugars and carbohydrates Mood disorder, managed by Psychiatrist. Taking her medicatio ns as prescribed In process of work up for ? Right kidney stone, no current h ematuria or flank pain that she is aware of, seeing Urologist and has up coming CT flank and urine and blood work. HISTORY REVIEWED (electronic chart updated): PAST MEDICAL HISTORY Diagnosis Date - Allergic rhinitis, cause unspecified Allergy, airborne subst - Anxiety and depression - Bee allergy status - Depression - Environmental allergies - GERD (gastroesophageal reflux disease) - Hypercholesteremia 11/2014 - Impaired fasting glucose - Migraines - Morbid obesity (HCC) - Obstructive sleep apnea DX 2006, not on CPAP since 06/2018 - Unspecified asthma(493.90) weather, allergy and exercise triggers - Vitamin D deficiency PAST SURGICAL HISTORY Procedure Laterality Date - DELIVERY ONLY 2001 , low cervical - LIGATE FALLOPIAN TUBE 2001 Tubal ligation - LITHOTRIPSY [facility] Right 02/18/2018 - STEREOTACTIC LOCALIZATION BREAST BIOPSY Right 05/26/2019 - US GUIDED BREAST BIOPSY Left 05/2020 FAMILY HISTORY Problem Relation Age of Onset - Asthma Mother - Thyroid Mother - COPD Mother - other (depression) Mother - other (depression) Sister - Asthma Brother - Depression Brother - Diabetes Father - Hypertension Father - Diabetes Maternal Grandmother - Thyroid Maternal Grandmother - Cancer Maternal Grandfather unknown - Kidney Disease Paternal Grandmother - Cancer Paternal Grandfather - Asthma Daughter - Depression Daughter - Depression Daughter - other (ADD) Daughter Social History Tobacco Use - Smoking status: Never Smoker - Smokeless tobacco: Never Used Substance Use Topics - Alcohol use: No Frequency: Never Drinks per session: Patient refused Binge frequency: Never - Drug use: No Current Outpatient Medications Medication Sig - lamoTRIgine (LAMICTAL) 25 mg tablet Take 1 tablet by mouth once daily. - rizatriptan (MAXALT) 10 mg tablet Take 1 tablet by mouth a s needed for Migraine Headache (see administration instructions). May rep eat in 2 hours if needed - gabapentin (NEURONTIN) 100 mg capsule Take 1 capsule by mo uth three times daily for 98 days. - amitriptyline (ELAVIL) 50 mg tablet Take 0.5 tablets by mo uth daily at bedtime. - topiramate (TOPAMAX) 50 mg tablet Take 50 mg by mouth twic e daily. - ziprasidone (GEODON) 40 mg capsule Take 40 mg by mouth mara ly with dinner. - vitamin b complex (B COMPLETE) tab Take 1 tablet by mouth once daily. - clotrimazole (LOTRIMIN, CLOTRIM) 1 % cream Apply to affect ed area twice daily. As needed for yeast infection - cholecalciferol (VITAMIN D3) 50 mcg (2,000 unit) tablet Ta ke 1 tablet by mouth once daily. - guaiFENesin (MUCINEX) 600 mg 12 hr tablet Take 2 tablets b y mouth twice daily as needed. - bqxrjwu-icpclqegx-qubuxxk D3 (CALCIUM 500+D) 500 mg(1,250m g) -200 unit per tablet Take 1 tablet by mouth twice daily with meals. - PRODIGEN 31 billion cell cap Take 1 capsule by mouth daily at bedtime. - albuterol HFA (VENTOLIN HFA) 90 mcg/actuation inhaler Inha le 2 Puffs as instructed every 4 hours as needed. - EPINEPHrine (EPIPEN) 0.3 mg/0.3 mL auto-injector Inject 0. 3 mL intramuscularly as needed (for allergic reaction.Seek emerge nt medical care immediately after use.Disp:one 2-pack w/education trainer). - cetirizine (ZYRTEC) 10 mg tablet Take 1 tablet by mouth on ce daily as needed. - OYSCO-500 500 mg calcium (1,250 mg) tablet Take 1 tablet b y mouth twice daily with meals. - Magnesium Oxide 500 mg tab Take 1 tablet by mouth once mara ly. - nystatin (MYCOSTATIN) powder Apply 1 application to affect ed area four times daily. As needed for yeast rash - fluticasone-salmeterol HFA (ADVAIR HFA) 115-21 mcg/actuati on inhaler Inhale 2 Puffs as instructed twice daily. Use with spacer. R inse mouth out after use. - meloxicam (MOBIC) 15 mg tablet Take 0.5-1 tablets by mouth once daily. As needed for pain, Take with food. (Patient not taking: Rep orted on 06/24/2020 ) - [place] Elyzyk-Tthixx-Ijtf Oxide (GOLD SOLANO MEDICATED BABY) 7 9-4-15 % powd Apply 1 application to affected area twice daily as needed ( intertrigo). (Patient taking differently: Apply 1 application to affected area twice daily as needed (intertrigo). Not medicated ) - cyclobenzaprine (FLEXERIL) 10 mg tablet Take 1 tablet by m outh three times daily as needed for Muscle Spasm. (Patient not taking: Reported on 06/24/2020 ) - albuterol (PROVENTIL) 2.5 mg /3 mL (0.083 %) nebulizer estevan ution Use 3 mL via nebulizer every 4 hours as needed for Wheezing/Shortness of Breath. 1 vial contains 3 ml. - amphetamine-dextroamphetamine XR (ADDERALL XR) 20 mg 24 hr capsule Take 20 mg by mouth once daily. - famotidine (PEPCID) 20 mg tablet Take 1 tablet by mouth tw ice daily. - B-complex with vitamin C (ALLBEE WITH C) tablet Take 1 tab let by mouth once daily. - L. rhamnosus-L. reuteri (REPHRESH PRO-B) 2.5 billion cell cap Take 1 capsule by mouth daily at bedtime. - LORazepam (ATIVAN) 0.5 mg tab Take by mouth at bedtime as needed. - triamcinolone acetonide (NASACORT AQ) 55 mcg nasal inhaler Use 2 Sprays in each nostril every morning. - azelastine (ASTELIN,ASTEPRO) 0.1% nasal spray Use 2 Sprays in each nostril daily at bedtime. (Patient not taking: Reported on ) - ketotifen fumarate (ZADITOR) 0.025 % (0.035 %) ophthalmic solution One drop to each eye 2 to 3 times a day as needed. No current facility-administered medications for this visit. ALLERGIES Allergen Reactions - Beta Blockers [Beta* Contraindication-Medical Surgical Avoid use of beta blockers and KERRIE inhibitors since patient is on venom immunotherapy - Kerrie Inhibitors Contraindication-Medical Surgical Avoid use of beta blockers and KERRIE inhibitors since patient is on venom immunotherapy - Environmental Aller* Grasses, molds, dust mites, cats, cockroaches - Lexapro [Escitalopr* Intolerance altered mood - Prozac [Fluoxetine * Intolerance altered mood - Trintellix [Vortiox* Mental Status Change - Venom-Wasp - Venom-Yellow Hornet Unknown Yellow and white faced hornet - Venom-Yellow Jacket* - Viibryd [Vilazodone] Mental Status Change agitated - Wellbutrin [Bupropi* Rash Agitation - Zoloft [Sertraline * Intolerance altered mood REVIEW OF SYSTEMS: As noted in HPI PHYSICAL EXAMINATION: VIDEO EXAM: (if completed, performed via video enabled techn ology) GENERAL: alert and appropriate, in no distress and well-hydr ated, well nourished Obese, appears disheveled. ASSESSMENT: (Z11.59) Encounter for hepatitis C screening test for low ri sk patient (primary encounter diagnosis) (Z11.4) Screening for HIV (human immunodeficiency virus) (E55.9) Vitamin D deficiency (E78.5) Dyslipidemia (R73.01) IFG (impaired fasting glucose) PLAN: See above, need for follow up with Urologist, she desires to have Hep C and HIV screening. There are no Patient Instructions on file for this visit. I spent more than 20 minutes mgjh-dx-bxub with the patient a nd over half the time was devoted to counseling and/or coordination of ca re. aR Galvez, DO progress on 2020-06 PROGRESS HNO ID: [id number] Normal 07-09-2020 [facility] Author: Nery Hallman ([id number]) Service: ? Author Type: Physician Type: Progress Notes Filed: 07/09/2020 4:43 PM Note Text: VIRTUAL VISIT PROGRESS NOTE 07/09/2020 Patient has consented to this virtual encounter, not origina ting from a related Evaluation AND Management service provided within e previous 7 days. NOTE: Cannot be used if an Evaluation AND Management s ervice or procedure is planned within the next 24 hours. Persons Present: patient Chief Complaint/Reason: kidney stones HPI: Bhavesh Beaulieu is a 44 year old female. She reports t hat she is doing well. Denies any stone related pain and gross hematuri a. She denies any dysuria, hematuria, nocturia, urgency, urinar y incontinence, usage of pads, abnormal urinary stream, postvo id dribbling, hesitancy, or modifying urologic factors. Labs: N/a Imaging: KUB from 07/02/2020 IMPRESSION: Possible 5 mm right renal calculus versus enteric contents. ?Consider further evaluation with renal ultrasound as clinically indic ated. Assessment and Plan: This is a 44 year old female who presents to the office toda y for the above complaints. Patient has had no troubles with stones. Recent KUB demonstr ates possible right renal calculus. Plan for a CT flank to determine if stone is there. Also plan for stone workup to assess etiology of stone forma tion. Follow up once results of studies are in or sooner if she de velops any concerning or worsening symptoms. All questions were answered satisfactorily for the patient. Total Time Spent: 21-30 minutes ATTESTATION: By signing my name below, Marcus Fischer, attest that this documentation has been prepared under the direction and in the presence of Nery Canela MD. Electronically Signed:hugo Higgins, July 09, 2020 4:10 PM Provider Attestation: Amado, Dr. Nery Canela MD, personally performed the services described in this documentation. All medical record entries made by the trey chung were at my direction and in my presence. I have reviewed the chart a nd discharge instructions (if applicable) and agree that the record refle cts my personal performance and is accurate and complete. Dr. Ezra Canela MD. July 09, 2020 4:43 PM urine culture on 08-07-19 Bacteria Culture Result - Critically 07-07-2020 [facility] identified Cx Nom <10,000 CFU/ml abnormal Hallman (U) Lactose negative (00 000) gram negative bacilli --> ABNORMAL ALERT Insignificant colony count. No further workup. --> ABNORMAL ALERT Comment: Performed By: #### URCUL ### [address] [phone] progress on 2020-06 PROGRESS HNO ID: [id number] Normal 07-07-2020 [facility] Author: Nery Hallman ([id number]) Service: Urology Author Type: Physician Type: Progress Notes Filed: 07/08/2020 5:15 PM Note Text: [facility] NOTE DEPARTMENT OF UROLOGY [place] NAME: BHAVESH BEAULIEU [facility] NO.: [id number] DATE OF SERVICE: 07/07/2020 TELEPHONE VISIT Telephone call concerning the x-ray that just showed a quest ionable 5 mm stone in the kidney. Otherwise, she is doing satisfactorily. Will follow up with me in the office. DICTATED BY: Judah Anne/Rosalee JOB# [id number] urinalysis on 07-03 Bilirubin, Urine Negative Negative Normal 07-03-2020 [facility] ([id number]) Comment: Performed By: #### UA ####[address] [phone] Clarity (U) Slightly Cloudy Clear Critically abnormal [facility] (04646) Comment: Performed By: #### UA ####[address] [phone] Color (U) Yellow Yellow Normal 07-03-2020 [facility] (00247) Comment: Performed By: #### UA ####[address] [phone] Comments SEE COMMENT Normal 07-03-2020 [facility] (30974) Comment: Result Comment: Microscopic Examination Performed Performed By: #### UA ####Cl [address] [phone] Epithelial cells LM.HPF SEE COMMENT Normal 06-19 [facility] (Urine sed) [#/Area] Mckenna ([id number]) Comment: Result Comment: Few Squamous Epithelial Cells Performed By: #### UA ####Cl [address] [phone] Glucose Ql (U) Negative Negative Normal 07-03-2020 [facility] (37356) Comment: Performed By: #### UA ####[address] [phone] Hemoglobin/Blood,Ur 1+ Negative Critically abnormal 07-03-2020 [facility] (92031) Comment: Performed By: #### UA ####[address] [phone] Ketones Ql (U) Negative Negative Normal 07-03-2020 [facility] (62008) Comment: Performed By: #### UA ####[address] [phone] Leukest 3+ Negative Critically abnormal 07-03-2020 [facility] (40201) Comment: Performed By: #### UA ####[address] [phone] Nitrite Ql (U) Negative Negative Normal 07-03-2020 [facility] (07913) Comment: Performed By: #### UA ####[address] [phone] pH (Bld) 6.0 5.0-8.0 Normal 07-03-2020 [facility] (31360) Comment: Performed By: #### UA ####[address] [phone] Protein (U) [Mass/Vol] Negative Negative mg/dL Normal 020 [facility] (67668) Comment: Performed By: #### UA ####Cl [address] [phone] RBC (U) [#/Vol] 3-5 0-3 Critically abnormal 08- [facility] (33551) Comment: Performed By: #### UA ####[address] [phone] Specific [place], Ur 1.019 1.005-1.030 Normal 020 [facility] (35592) Comment: Performed By: #### UA ####[address] [phone] Urine Johnnie Comment SEE COMMENT Normal 07-03-2020 [facility] ([id number]) Comment: Result Comment: N/A Performed By: #### UA ####[address] [phone] Urobilinogen Qn (U) Negative Negative Normal 07-03-2020 [facility] (15974) Comment: Performed By: #### UA ####[address] [phone] WBC (Bld) [#/Vol] 11-25 0-5 Critically abnormal [facility] (01882) Comment: Performed By: #### UA ####[address] [phone]- [phone] Yeast LM Ql (Urine Few 0 Critically abnormal 0 07-03-2020 [facility] sed) Mckenna ([id number]) Comment: Result Comment: Juan Hernandez t Performed By: #### UA ####[address] [phone] xr abdomen 1v supine on 2020-07-02 XR ABDOMEN 1V * * *Final Report* * * Normal [facility] SUPINE DATE OF EXAM: Jul 02 2020 10:52AM Mckenna ([id number]) WRX [id number] - XR ABDOMEN 1V SUPINE / PROCEDURE REASON: History of kidney stones * * * * Physician Interpretation * * * * CLINICAL INDICATION: Kidney stones TECHNIQUE: Supine frontal radiograph of the abdomen COMPARISON: Radiograph dated 12/30/2019 FINDINGS: Question 5 mm calcification projecting over the right kidney which may reflect renal calculus or enteric contents. No radiographic evidence of additional urinary tract calculi noting evaluation is degrad ed by overlying obscuring bowel gas and stool. Nonobstructive stephanie l gas pattern. Phleboliths in the pelvis. Degenerative changes in the spine. Stable elongation of the transverse processes at the level of L5. Degenerative hypertrophic ratliff ges about the bilateral hips. IMPRESSION: Possible 5 mm right renal calculus versus enteric contents. Consider further evaluation with renal ultrasound as clinically indic ated. 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: DONNY Transcribe Date/Time: Jul 02 2020 4:40P Dictated by : FLOYD MIR MD This examination was interpreted and the report reviewed and electronically signed by: FLOYD MIR MD on Jul 02 2020 4:44PM EST [id number] vitamin d 25 hydroxy on 2020-07-02 Vitamin D 25 Hydroxy 43.7 31.0-80.0 ng/mL Normal 0 [facility] ([id number]) Comment: Result Comment: Classificati on of 25 [place] Vitamin D status: Insufficiency/Moderate Defic iency: < or = 30 ng/mL Sufficiency/Optimal Levels: 31 to 80 ng/mL Toxicity: > 100 ng/mL Test performed by chemilumin escent immunoassay. Performed By: #### VITD, HBA 1C ####[facility] [address] [place], [place] [phone] progress on 2020-06 PROGRESS HNO ID: [id number] Normal 07-02-2020 [facility] Author: Jerri (Rt) Derrell Carvajal ([id number]) Service: ? Author Type: Msws Type: Progress Notes Filed: 07/02/2020 10:53 AM Note Text: Radiology Service Progress Note PATIENT NAME: Bhavesh Beaulieu DATE OF SERVICE: July 02, 2020 TIME: 10:45 AM PATIENT IDENTITY VERIFICATION COMPLETED USING TWO (2) IDENTI FIERS: Name and Date of confirmed by patient verbally. FALL SCREENING: Has the patient had 2 falls in the last year or 1 fall with injury or currently using an Ambulatory Assistive Devic e (Walker, Cane, Wheelchair, Crutches, etc.)? No PATIENT GENDER DATA: Female. status: : No status: NO. PATIENT RELEVANT IMPLANT DATA REVIEWED: Not Applicable RADIOLOGY DEPARTMENT: General X-ray: Exam(s) Completed: April novak X-Ray Abdomen PERIPHERAL IV DATA: Not applicable SIGNED BY: Jerri Carvajal, RT July 02, 2020 10:45 AM hemoglobin a1c on 2 HbA1c (Bld) [Mass fraction] 5.7 4.3-5.6 % High [facility] ([id number]) Comment: Result Comment: [place] [employer] guidelines indicate that patients with HgbA1c in the range 5.7-6.4% are at increased risk for development of diabetes, and intervention by lifestyle modification may be beneficial. HgbA1c greater o r equal to 6.5% is considered diagnostic of diabetes. Performed By: #### VITD, HBA 1C ####[facility] [address] [place], [place] [phone] HbA1c (Bld) [Mass fraction] 117 mg/dL Normal [facility] ([id number]) Comment: Result Comment: eAG: (Estima gonzález average glucose) is a calculated value from HgbA1c and is outside sales representative insurance of the average blood glucose level in the last 2-3 month period. Performed By: #### VITD, HBA 1C ####[facility] [address] [place], [place] [phone] obsolete on 2020-06 OBSOLETE Refill (FAMPWS) Normal 06-28-2020 [facility] BHAVESH BEAULIEU ([id number]) 1975 F [facility] Date Time Provider Department ([id number]) 06/28/20 RA GALVEZ During your visit today, we recorded the following informati on about you: Von Martedebaltagracia CAROL 06/28/2020 2:23 PM Signed Patient phones requesting refills as follows: Pending Prescriptions Disp Refills CHOLECALCIFEROL (VITAMIN D3) 50 MCG (2,000 UNIT) TABLET 90 t ablet 3 Sig: Take 1 tablet by mouth once daily. EPI: No Please review and advise. Von Livingston CAROL Allergies As of Date: 06/28/2020 Noted Allergy Reaction BETA BLOCKERS (BETA-BLOCKERS (BET*2013 15 - Contraindication-Medical Sharma* Comments: Avoid use of beta blockers and KERRIE inhibitors sinc e patient is on venom immunotherapy KERRIE INHIBITORS 11/02/2014 15 - Contraindication-Medical Sharma* Comments: Avoid use of beta blockers and KERRIE inhibitors sinc e patient is on venom immunotherapy Environmental Allergies [Other] 12/25/2006 Comments: Grasses, molds, dust mites, cats, cockroaches LEXAPRO (ESCITALOPRAM OXALATE) 10/30/2018 5 - Intolerance Comments: altered mood PROZAC (FLUOXETINE HCL) 10/30/2018 5 - Intolerance Comments: altered mood TRINTELLIX (VORTIOXETINE) 01/08/2020 1 - Mental Status Carbajal e VENOM-WASP 09/26/2007 VENOM-YELLOW HORNET 09/26/2007 16 - Unknown Comments: Yellow and white faced hornet VENOM-YELLOW JACKET PROTEIN 09/26/2007 VIIBRYD (VILAZODONE) 05/17/2020 1 - Mental Status Change Comments: agitated WELLBUTRIN (BUPROPION HCL) 05/08/2019 2 - Rash Comments: Agitation ZOLOFT (SERTRALINE HCL) 10/30/2018 5 - Intolerance Comments: altered mood Date Reviewed: 06/24/2020 Reviewed by: Mario SalasTraffic OfficerJose Miguel Starr - Fully Assessed Reason for Visit: Refill Request [94] Visit Diagnosis:Muscle twitching [R25.3] Order(s):cholecalciferol (VITAMIN D3) 50 mcg (2, 000 unit) tabletTake 1 tablet by mouth once daily.Disp: 90 tabletRfl: 3 Prescriptions as of 06/28/2020 Sig: CHOLECALCIFEROL (VITAMIN D3) * Take 1 tablet by mouth once d * LAMOTRIGINE 25 MG TABLET Take 25 mg by mouth twice mara* AMOXICILLIN 875 MG-POTASSIUM * Take 1 tablet by mouth twice * METHYLPREDNISOLONE 4 MG TABLE* Follow dosing instructions, t * MUCINEX 600 MG TABLET, EXTEND* Take 2 tablets by mouth twice * GABAPENTIN 100 MG CAPSULE Take 1 capsule by mouth three* CALCIUM CARBONATE 500 MG (1,2* Take 1 tablet by mouth twice * PRODIGEN 31 BILLION CELL CAPS* Take 1 capsule by mouth daily * ALBUTEROL SULFATE HFA 90 MCG/* Inhale 2 Puffs as instructed * AMITRIPTYLINE 50 MG TABLET Take 0.5 tablets by mouth mara* EPINEPHRINE 0.3 MG/0.3 ML INJ* Inject 0.3 mL intramuscularly * CETIRIZINE 10 MG TABLET Take 1 tablet by mouth once d* OYSCO-500 500 MG CALCIUM (1,* Take 1 tablet by mouth twice * MAGNESIUM OXIDE 500 MG TABLET Take 1 tablet by mouth once d* NYSTATIN 100,000 UNIT/GRAM TO* Apply 1 application to affect * FLUTICASONE PROPIONATE 115 MC* Inhale 2 Puffs as instructed * MELOXICAM 15 MG TABLET Take 0.5-1 tablets by mouth o* Patient not taking: Reported on 06/24/2020 GOLD SOLANO MEDICATED BABY 79 %* Apply 1 application to affect * Patient taking differently: Apply 1 application to affect* CYCLOBENZAPRINE 10 MG TABLET Take 1 tablet by mouth three * Patient not taking: Reported on 06/24/2020 ALBUTEROL SULFATE 2.5 MG/3 ML* Use 3 mL via nebulizer every * DEXTROAMPHETAMINE-AMPHETAMINE* Take 20 mg by mouth once ngozi * FAMOTIDINE 20 MG TABLET Take 1 tablet by mouth twice * B-COMPLEX WITH VITAMIN C TABL* Take 1 tablet by mouth once d * LACTOBACILLUS RHAMNOSUS GG-LA* Take 1 capsule by mouth daily * LORAZEPAM 0.5 MG TABLET Take by mouth at bedtime as n* TRIAMCINOLONE ACETONIDE 55 MC* Use 2 Sprays in each nostril * AZELASTINE 137 MCG (0.1 %) NA* Use 2 Sprays in each nostril * Patient not taking: Reported on 06/24/2020 KETOTIFEN 0.025 % (0.035 %) E* One drop to each eye 2 to 3 t * RIZATRIPTAN 10 MG TABLET Take 1 tablet by mouth as nee* TOPIRAMATE 50 MG TABLET Take 50 mg by mouth twice mara* ZIPRASIDONE 40 MG CAPSULE Take 40 mg by mouth daily wit* VITAMIN B COMPLEX TABLET Take 1 tablet by mouth once d* Patient not taking: Reported on 06/24/2020 Problem List As Of Date 06/28/2020 Noted Resolved ASTHMA UNSPECIFIED [J45.909] 11/02/2014 Allergic rhinitis due to fungal spores [J30.89] More... Obesity, Class III, BMI 40-49.9 (morbid obesity*11/21/2006 Obstructive sleep apnea [G47.33] 08/19/2007 Toxic effect of venom [T63.91XA] 09/23/2007 11/28/2018 Moderate persistent asthma [J45.40] 11/02/2014 Allergic rhinitis due to dust mite [J30.89] 01/24/2018 Allergic rhinitis due to cat hair [J30.81] 01/24/2018 Seasonal allergic rhinitis due to pollen [J30.1]01/24/2018 Right ureteral calculus [N20.1] 02/15/2018 More... Nonspecific paroxysmal spell [R40.4] 08/14/2018 09/24/2018 Psychogenic nonepileptic seizure [F44.5] 08/14/2018 Transient alteration of awareness [R40.4] 08/14/2018 018 Concern about neurological disease without diag*08/14/2018 1 11/24/2017 Psychosocial stressors [Z65.8] 08/14/2018 Episodic mood disorder (HCC) [F39] 08/14/2018 Convulsions (HCC) [R56.9] 09/23/2018 Other group home (current) drug therapy [Z79.899]08/22/2018 Severe manic bipolar I disorder with psychotic *09/24/2018 Toxic effect of venom [T63.91XA] 11/28/2018 Myalgia [M79.10] 01/29/2019 Chronic pain syndrome [G89.4] 01/29/2019 Concentration deficit [R41.840] 01/29/2019 Screening for breast cancer [Z12.39] 01/29/2019 Bipolar disorder, current episode mixed, modera*04/08/2019 Intractable migraine without status migrainosus*04/08/2019 Intertrigo [L30.4] 04/08/2019 Dyslipidemia [E78.5] 01/14/2020 IFG (impaired fasting glucose) [R73.01] 01/14/2020 Prescriptions ordered this encounter Disp Refills Start End CHOLECALCIFEROL (VITAMIN D3) 50 MCG * 90 t* 3 06/30/2020 Route: ORAL Sig: Take 1 tablet by mouth once daily. Medications Discontinued During This Encounter Prescriptions - cholecalciferol (VITAMIN D3) 2,000 unit tablet (Discontinu ed) Take 1 tablet by mouth once daily. Encounter Status:Closed by RA GALVEZ DO on 06/30/20 progress on 2020-06 PROGRESS HNO ID: [id number] Normal 06-24-2020 [facility] Author: Mario Morales) [facility] ([id number]) Service: ? Author Type: Nurse Practitioner Type: Progress Notes Filed: 06/29/2020 2:52 PM Note Text: Chief Complaint Patient presents with: Sinusitis: sinus headaches, pressure under eyes, Headache X1 wk; advil prn not helping In lieu of an in person visit due to coronavirus COVID 19 pa ndemic concerns, a virtual Zoom visit was performed with patient. Ignacio gomez is aware that I am not fully able to assess symptoms and do a f ull physical exam including vital signs in office at this time. Patient c onsents to the visit. This Team Access Model visit is a virtual encounter. It requ ired patient-provider interaction for the medical decision making as documented below. Patient was offered a virtual/telemedicine appointmen t in lieu of an office visit due to recommendations to reduce patient exp osure to COVID-19. HIPAA secured video was used for evaluation of this patient. Patient agrees to the visit: Yes Patient Location: [facility] [place] [facility] Bhavesh Beaulieu is a 44 year old female who is contacted to day for a virtual visit This is an established patient of Dr. Ra Galvez DO and new to me today. Reports: Woke up about a week ago with a lot of sinus conges tion. Has been using Mucinex and Advil, without relief. Had a bad sinu s infection in the spring, took 2 antibiotics to clear it. Did seem to c ompletely clear up. This is new. Is getting just a little bit of green mucous, drains down the back of her throat as well. Makes her hoarse when she talks. Hurting in her face above both of her eyes/eyebrows, both cheeks. No fever, but hasn't checked it. Has been intermittently chi lling lately. Takes Zyrtec daily, takes Nasocort daily, and takes it corre ctly. Past medical history, appointments, medications, allergies r eviewed 06/24/2020 Previous Medical History PAST MEDICAL HISTORY Diagnosis Date - Allergic rhinitis, cause unspecified Allergy, airborne subst - Anxiety and depression - Bee allergy status - Depression - Environmental allergies - GERD (gastroesophageal reflux disease) - Hypercholesteremia 11/2014 - Impaired fasting glucose - Migraines - Morbid obesity (HCC) - Obstructive sleep apnea DX 2006, not on CPAP since 06/2018 - Unspecified asthma(493.90) weather, allergy and exercise triggers - Vitamin D deficiency Previous Surgical History PAST SURGICAL HISTORY Procedure Laterality Date - DELIVERY ONLY 2001 , low cervical - LIGATE FALLOPIAN TUBE 2001 Tubal ligation - LITHOTRIPSY [facility] Right 02/18/2018 - STEREOTACTIC LOCALIZATION BREAST BIOPSY Right 05/26/2019 - US GUIDED BREAST BIOPSY Left 05/2020 Family History FAMILY HISTORY Problem Relation Age of Onset - Asthma Mother - Thyroid Mother - COPD Mother - other (depression) Mother - other (depression) Sister - Asthma Brother - Depression Brother - Diabetes Father - Hypertension Father - Diabetes Maternal Grandmother - Thyroid Maternal Grandmother - Cancer Maternal Grandfather unknown - Kidney Disease Paternal Grandmother - Cancer Paternal Grandfather - Asthma Daughter - Depression Daughter - Depression Daughter - other (ADD) Daughter Patient Allergies ALLERGIES Allergen Reactions - Beta Blockers [Beta* Contraindication-Medical Surgical Avoid use of beta blockers and KERRIE inhibitors since patient is on venom immunotherapy - Kerrie Inhibitors Contraindication-Medical Surgical Avoid use of beta blockers and KERRIE inhibitors since patient is on venom immunotherapy - Environmental Aller* Grasses, molds, dust mites, cats, cockroaches - Lexapro [Escitalopr* Intolerance altered mood - Prozac [Fluoxetine * Intolerance altered mood - Trintellix [Vortiox* Mental Status Change - Venom-Wasp - Venom-Yellow Hornet Unknown Yellow and white faced hornet - Venom-Yellow Jacket* - Viibryd [Vilazodone] Mental Status Change agitated - Wellbutrin [Bupropi* Rash Agitation - Zoloft [Sertraline * Intolerance altered mood Current Medications Current Outpatient Medications on File Prior to Visit Medication Sig - lamoTRIgine (LAMICTAL) 25 mg tablet Take 25 mg by mouth tw ice daily. - gabapentin (NEURONTIN) 100 mg capsule Take 1 capsule by mo uth three times daily for 98 days. - mpfwgmk-gsacxqvlh-jfuifxa D3 (CALCIUM 500+D) 500 mg(1,250m g) -200 unit per tablet Take 1 tablet by mouth twice daily with meals. - PRODIGEN 31 billion cell cap Take 1 capsule by mouth daily at bedtime. - albuterol HFA (VENTOLIN HFA) 90 mcg/actuation inhaler Inha le 2 Puffs as instructed every 4 hours as needed. - amitriptyline (ELAVIL) 50 mg tablet Take 0.5 tablets by mo uth daily at bedtime. - EPINEPHrine (EPIPEN) 0.3 mg/0.3 mL auto-injector Inject 0. 3 mL intramuscularly as needed (for allergic reaction.Seek emerge nt medical care immediately after use.Disp:one 2-pack w/education trainer). - cetirizine (ZYRTEC) 10 mg tablet Take 1 tablet by mouth on ce daily as needed. - OYSCO-500 500 mg calcium (1,250 mg) tablet Take 1 tablet b y mouth twice daily with meals. - Magnesium Oxide 500 mg tab Take 1 tablet by mouth once mara ly. - nystatin (MYCOSTATIN) powder Apply 1 application to affect ed area four times daily. As needed for yeast rash - fluticasone-salmeterol HFA (ADVAIR HFA) 115-21 mcg/actuati on inhaler Inhale 2 Puffs as instructed twice daily. Use with spacer. R inse mouth out after use. - [place] Hmiswx-Sdghwb-Qhkn Oxide (GOLD SOLANO MEDICATED BABY) 7 9-4-15 % powd Apply 1 application to affected area twice daily as needed ( intertrigo). (Patient taking differently: Apply 1 application to affected area twice daily as needed (intertrigo). Not medicated ) - albuterol (PROVENTIL) 2.5 mg /3 mL (0.083 %) nebulizer estevan ution Use 3 mL via nebulizer every 4 hours as needed for Wheezing/Shortness of Breath. 1 vial contains 3 ml. - amphetamine-dextroamphetamine XR (ADDERALL XR) 20 mg 24 hr capsule Take 20 mg by mouth once daily. - famotidine (PEPCID) 20 mg tablet Take 1 tablet by mouth tw ice daily. - B-complex with vitamin C (ALLBEE WITH C) tablet Take 1 tab let by mouth once daily. - cholecalciferol (VITAMIN D3) 2,000 unit tablet Take 1 tabl et by mouth once daily. - L. rhamnosus-L. reuteri (REPHRESH PRO-B) 2.5 billion cell cap Take 1 capsule by mouth daily at bedtime. - LORazepam (ATIVAN) 0.5 mg tab Take by mouth at bedtime as needed. - triamcinolone acetonide (NASACORT AQ) 55 mcg nasal inhaler Use 2 Sprays in each nostril every morning. - guaiFENesin (MUCINEX) 600 mg 12 hr tablet Take 2 tablets b y mouth twice daily as needed. - ketotifen fumarate (ZADITOR) 0.025 % (0.035 %) ophthalmic solution One drop to each eye 2 to 3 times a day as needed. - rizatriptan (MAXALT) 10 mg tablet Take 1 tablet by mouth a s needed for Migraine Headache (see administration instructions). May rep eat in 2 hours if needed - topiramate (TOPAMAX) 50 mg tablet Take 50 mg by mouth twic e daily. - ziprasidone (GEODON) 40 mg capsule Take 40 mg by mouth mara ly with dinner. - meloxicam (MOBIC) 15 mg tablet Take 0.5-1 tablets by mouth once daily. As needed for pain, Take with food. (Patient not taking: Rep orted on 06/24/2020 ) - cyclobenzaprine (FLEXERIL) 10 mg tablet Take 1 tablet by m outh three times daily as needed for Muscle Spasm. (Patient not taking: Reported on 06/24/2020 ) - azelastine (ASTELIN,ASTEPRO) 0.1% nasal spray Use 2 Sprays in each nostril daily at bedtime. (Patient not taking: Reported on ) - vitamin b complex (B COMPLETE) tab Take 1 tablet by mouth once daily. (Patient not taking: Reported on 06/24/2020 ) No current facility-administered medications on file prior t o visit. Social History Social History Tobacco Use - Smoking status: Never Smoker - Smokeless tobacco: Never Used Substance Use Topics - Alcohol use: No Frequency: Never Drinks per session: Patient refused Binge frequency: Never - Drug use: No Review of Symptoms GENERAL: Positive for malaise. No fevers. HEENT: Positive for headaches No eye discharge or redness No earaches No sore throat. Intermittent hoarseness. Nose POS for congestion and nasal discharge; see HPI NECK: Negative for pain or swelling. No lumps RESPIRATORY: No wheezing, SOB, difficulty breathing. No coug h CARDIOVASCULAR: Negative for chest pain GI: No nausea, vomiting, or diarrhea MUSCULOSKELETAL: Negative for bodyaches SKIN: Negative for rash or itching Neuro: No lightheadedness or dizziness EXAM: There were no vitals taken for this visit. Virtual visit completed using video, limited exam completed. General Appearance: Well appearing, alert, in no acute distr ess, well-hydrated, well nourished. Skin: Skin color normal Head: Normocephalic. No facial swelling or redness. EENT: Eyes nonreddened. No discharge. External ears nonredde santos and no swelling. Neck: No mass or lesions. No swelling. FROM Patient is not able to speak in complete sentences: No Patient has labored breathing: No. Patient is audibly coughing: No Psych: Attitude - cooperative, easily engaged in conversatio n Affect - Euthymic, normal mood Mental status: Alert. Speech is clear and fluent with good r epetition, comprehension Appearance - Normal hygiene and grooming appropriate Coordination: No abnormal or extraneous movements. Gait/Stance: Posture is normal. Health Maintenance List HEPATITIS C SCREENING due on 1993 HIV SCREENING due on 1993 PAP TESTING due on 12/21/2020 HPV TESTING due on 12/21/2020 INFLUENZA(1) due on 07/20/2020 ANNUAL PCP TEAM CHRONIC DISEASE VISIT due on 02/24/2021 MAMMOGRAM due on 04/19/2021 DTAP,TDAP,TD(2 - Td) due on 12/21/2025 SPIROMETRY Completed Data reviewed Last 5 Encounter BP Readings: Date: BP: 05/31/2020 122/84 01/14/2020 130/86 12/30/2019 126/82 11/06/2019 139/87 10/22/2019 128/86 BMI Readings from Last 5 Encounters: 05/31/20 : 45.18 kg/m? 05/17/20 : 44.99 kg/m? 01/14/20 : 47.55 kg/m? 12/30/19 : 47.92 kg/m? 11/06/19 : 47.92 kg/m? Last 5 Encounter Wt Readings: Date: Wt: 05/31/2020 112 kg (247 lb) 05/17/2020 111.6 kg (246 lb) 01/14/2020 117.9 kg (260 lb) 12/30/2019 118.8 kg (262 lb) 11/06/2019 118.8 kg (262 lb) Medication and allergy list reviewed, reconciled and updated 06/24/2020 Total appointment time on virtual with patient = 11-20 minut es ASSESSMENT/PLAN: 1. Bacterial sinusitis - ICD9: 473.9, 041.9, ICD10: J32.9, B 96.89 Will treat with full 2 weeks of Augmentin. This did help in the past. Medrol dose pack as well. She may need to have her course ex tended, and patient does understand this. - AMOXICILLIN 875 MG-POTASSIUM CLAVULANATE 125 MG TABLET - METHYLPREDNISOLONE 4 MG TABLETS IN A DOSE PACK Mario Starr APRN.SHARATH marie on 2020-06-21 CNPN Telephone (INTMWS) Normal 06-21-2020 Mckenna BHAVESH Garza ([id number]) 1975 [place] Lacie Mckenna Date Time Provider Department ([id number]) 06/21/20 RA GALVEZ INTMWS During your visit today, we recorded the following informati on about you: Karene Baeza LPN 06/21/2020 11:34 AM Signed Patient calling to report symptoms of sinus infe ction. She has pressure under her eyes, sinus headache, green drainage. She had a fe vinod the other day, but none at this time. Denies being in contact with anyone with/ suspected of COVID. Denies any other symp toms. She uses [facility] in [place]. Please advise. Jasmyne Benavidez MA 06/21/2020 3:04 PM Signed Pt sent in message asking status of phone message a nd asking if something can be called into her pharmacy, [facility] in [place]. Jasmyne Benavidez MA Martha Cash Pss 06/21/2020 3:09 PM Signed Patient called to check on status of rx request. Advised her we are still waiting on reply from provider. She said he pharmacy close s at 5 pm. Please advise patient if/when approved and called into pharmacy. Mario Starr APRN.SHARATH 06/21/2020 3:10 PM Signed She really needs to have an appointment to be treated for this. I recommend she come in to be seen in Urgent care, o r she could be scheduled for a virtual visit if necessary. Mario Starr APRN.SHARATH Benavidez MA 06/21/2020 3:36 PM Signed Pt scheduled for visit on 06/24, pt was asking if there is anything recommended that she take OT C? She says she is currently using Advil sinus with minimal relief. Jasmyne Starr APRN.SHARATH 06/21/2020 3:49 PM Signed She can get some Mucinex to see if this may help break thing s up. Mario Starr APRN.SHARATH Benavidez MA 06/21/2020 3:51 PM Signed Spoke to patient and advised of informat ion provided below. Patient verbalizes understanding with no questions. Jasmyne Benavidez MA Allergies As of Date: 06/21/2020 Noted Allergy Reaction BETA BLOCKERS (BETA-BLOCKERS (BET*2013 15 - Contraindication-Medical Sharma* Comments: Avoid use of beta blockers and KERRIE inhibitors sinc e patient is on venom immunotherapy KERRIE INHIBITORS 11/02/2014 15 - Contraindication-Medical Shamra* Comments: Avoid use of beta blockers and KERRIE inhibitors sinc e patient is on venom immunotherapy Environmental Allergies [Other] 12/25/2006 Comments: Grasses, molds, dust mites, cats, cockroaches LEXAPRO (ESCITALOPRAM OXALATE) 10/30/2018 5 - Intolerance Comments: altered mood PROZAC (FLUOXETINE HCL) 10/30/2018 5 - Intolerance Comments: altered mood TRINTELLIX (VORTIOXETINE) 01/08/2020 1 - Mental Status Carbajal e VENOM-WASP 09/26/2007 VENOM-YELLOW HORNET 09/26/2007 16 - Unknown Comments: Yellow and white faced hornet VENOM-YELLOW JACKET PROTEIN 09/26/2007 VIIBRYD (VILAZODONE) 05/17/2020 1 - Mental Status Change Comments: agitated WELLBUTRIN (BUPROPION HCL) 05/08/2019 2 - Rash Comments: Agitation ZOLOFT (SERTRALINE HCL) 10/30/2018 5 - Intolerance Comments: altered mood Date Reviewed: 05/31/2020 Reviewed by: Rhiannon Najera RN - Fully Assessed Reason for Visit: sinus symptoms [Other] Prescriptions as of 06/21/2020 Sig: PRODIGEN 31 BILLION CELL CAPS* Take 1 capsule by mouth daily * ALBUTEROL SULFATE HFA 90 MCG/* Inhale 2 Puffs as instructed * AMITRIPTYLINE 50 MG TABLET Take 0.5 tablets by mouth mara* EPINEPHRINE 0.3 MG/0.3 ML INJ* Inject 0.3 mL intramuscularly * CETIRIZINE 10 MG TABLET Take 1 tablet by mouth once d* GABAPENTIN 100 MG CAPSULE Take 1 capsule by mouth three* OYSCO-500 500 MG CALCIUM (1,* Take 1 tablet by mouth twice * MAGNESIUM OXIDE 500 MG TABLET Take 1 tablet by mouth once d* NYSTATIN 100,000 UNIT/GRAM TO* Apply 1 application to affect * FLUTICASONE PROPIONATE 115 MC* Inhale 2 Puffs as instructed * MELOXICAM 15 MG TABLET Take 0.5-1 tablets by mouth o* GOLD SOLANO MEDICATED BABY 79 %* Apply 1 application to affect * Patient taking differently: Apply 1 application to affect* CYCLOBENZAPRINE 10 MG TABLET Take 1 tablet by mouth three * ALBUTEROL SULFATE 2.5 MG/3 ML* Use 3 mL via nebulizer every * DEXTROAMPHETAMINE-AMPHETAMINE* Take 20 mg by mouth once ngozi * FAMOTIDINE 20 MG TABLET Take 1 tablet by mouth twice * X CALCIUM CARBONATE 500 MG (1,2* Take 1 tablet by mouth twic e * B-COMPLEX WITH VITAMIN C TABL* Take 1 tablet by mouth once d * CHOLECALCIFEROL (VITAMIN D3) * Take 1 tablet by mouth once d * LACTOBACILLUS RHAMNOSUS GG-LA* Take 1 capsule by mouth daily * LORAZEPAM 0.5 MG TABLET Take by mouth at bedtime as n* TRIAMCINOLONE ACETONIDE 55 MC* Use 2 Sprays in each nostril * AZELASTINE 137 MCG (0.1 %) NA* Use 2 Sprays in each nostril * GUAIFENESIN ER 600 MG TABLET,* Take 2 tablets by mouth twice * KETOTIFEN 0.025 % (0.035 %) E* One drop to each eye 2 to 3 t * RIZATRIPTAN 10 MG TABLET Take 1 tablet by mouth as nee* TOPIRAMATE 50 MG TABLET Take 50 mg by mouth twice mara* ZIPRASIDONE 40 MG CAPSULE Take 40 mg by mouth daily wit* VITAMIN B COMPLEX TABLET Take 1 tablet by mouth once d* Problem List As Of Date 06/21/2020 Noted Resolved ASTHMA UNSPECIFIED [J45.909] 11/02/2014 Allergic rhinitis due to fungal spores [J30.89] More... Obesity, Class III, BMI 40-49.9 (morbid obesity*11/21/2006 Obstructive sleep apnea [G47.33] 08/19/2007 Toxic effect of venom [T63.91XA] 09/23/2007 11/28/2018 Moderate persistent asthma [J45.40] 11/02/2014 Allergic rhinitis due to dust mite [J30.89] 01/24/2018 Allergic rhinitis due to cat hair [J30.81] 01/24/2018 Seasonal allergic rhinitis due to pollen [J30.1]01/24/2018 Right ureteral calculus [N20.1] 02/15/2018 More... Nonspecific paroxysmal spell [R40.4] 08/14/2018 09/24/2018 Psychogenic nonepileptic seizure [F44.5] 08/14/2018 Transient alteration of awareness [R40.4] 08/14/2018 018 Concern about neurological disease without diag*08/14/2018 1 11/24/2017 Psychosocial stressors [Z65.8] 08/14/2018 Episodic mood disorder (HCC) [F39] 08/14/2018 Convulsions (HCC) [R56.9] 09/23/2018 Other terminal carman (current) drug therapy [Z79.899]08/22/2018 Severe manic bipolar I disorder with psychotic *09/24/2018 Toxic effect of venom [T63.91XA] 11/28/2018 Myalgia [M79.10] 01/29/2019 Chronic pain syndrome [G89.4] 01/29/2019 Concentration deficit [R41.840] 01/29/2019 Screening for breast cancer [Z12.39] 01/29/2019 Bipolar disorder, current episode mixed, modera*04/08/2019 Intractable migraine without status migrainosus*04/08/2019 Intertrigo [L30.4] 04/08/2019 Dyslipidemia [E78.5] 01/14/2020 IFG (impaired fasting glucose) [R73.01] 01/14/2020 Encounter Status:Closed by JASMYNE BENAVIDEZ MA on 06/21/20 obsolete on 2020-06 OBSOLETE Refill (FAMPWS) Normal 06-20-[address] [facility] BHAVESH BEAULIEU ([id number]) 1975 [facility] Time Provider Department ([id number]) 06/20/20 RA GALVEZ FAMPWS During your visit today, we recorded the following informati on about you: Von Livingston LPN 06/21/2020 9:42 AM Signed Patient phones requesting refills as follows: Pending Prescriptions Disp Refills CALCIUM CARBONATE 500 MG (1,250 MG)-VITAMIN D3 200 UNIT TABL ET 90 tablet 3 Sig: Take 1 tablet by mouth twice daily with meals. EPI: No Please review and advise. Von Livingston LPN Allergies As of Date: 06/20/2020 Noted Allergy Reaction BETA BLOCKERS (BETA-BLOCKERS (BET*2013 15 - Contraindication-Medical Sharma* Comments: Avoid use of beta blockers and KERRIE inhibitors sinc e patient is on venom immunotherapy KERRIE INHIBITORS 11/02/2014 15 - Contraindication-Medical Sharma* Comments: Avoid use of beta blockers and KERRIE inhibitors sinc e patient is on venom immunotherapy Environmental Allergies [Other] 12/25/2006 Comments: Grasses, molds, dust mites, cats, cockroaches LEXAPRO (ESCITALOPRAM OXALATE) 10/30/2018 5 - Intolerance Comments: altered mood PROZAC (FLUOXETINE HCL) 10/30/2018 5 - Intolerance Comments: altered mood TRINTELLIX (VORTIOXETINE) 01/08/2020 1 - Mental Status Carbajal e VENOM-WASP 09/26/2007 VENOM-YELLOW HORNET 09/26/2007 16 - Unknown Comments: Yellow and white faced hornet VENOM-YELLOW JACKET PROTEIN 09/26/2007 VIIBRYD (VILAZODONE) 05/17/2020 1 - Mental Status Change Comments: agitated WELLBUTRIN (BUPROPION HCL) 05/08/2019 2 - Rash Comments: Agitation ZOLOFT (SERTRALINE HCL) 10/30/2018 5 - Intolerance Comments: altered mood Date Reviewed: 05/31/2020 Reviewed by: Rhiannon Najera RN - Fully Assessed Reason for Visit: Refill Request [94] Visit Diagnosis:Muscle twitching [R25.3] Order(s):ahpcpfs-sdpfpfoln-r itamin D3 (CALCIUM 500+D) 500 mg(1,250mg) -200 unit per tabletTake 1 tablet by mouth twice daily with meals.Disp : 90 tabletRfl: 3 Prescriptions as of 06/20/2020 Sig: CALCIUM CARBONATE 500 MG (1,2* Take 1 tablet by mouth twice * PRODIGEN 31 BILLION CELL CAPS* Take 1 capsule by mouth daily * ALBUTEROL SULFATE HFA 90 MCG/* Inhale 2 Puffs as instructed * AMITRIPTYLINE 50 MG TABLET Take 0.5 tablets by mouth mara* EPINEPHRINE 0.3 MG/0.3 ML INJ* Inject 0.3 mL intramuscularly * CETIRIZINE 10 MG TABLET Take 1 tablet by mouth once d* OYSCO-500 500 MG CALCIUM (1,* Take 1 tablet by mouth twice * MAGNESIUM OXIDE 500 MG TABLET Take 1 tablet by mouth once d* NYSTATIN 100,000 UNIT/GRAM TO* Apply 1 application to affect * FLUTICASONE PROPIONATE 115 MC* Inhale 2 Puffs as instructed * MELOXICAM 15 MG TABLET Take 0.5-1 tablets by mouth o* GOLD SOLANO MEDICATED BABY 79 %* Apply 1 application to affect * Patient taking differently: Apply 1 application to affect* CYCLOBENZAPRINE 10 MG TABLET Take 1 tablet by mouth three * ALBUTEROL SULFATE 2.5 MG/3 ML* Use 3 mL via nebulizer every * DEXTROAMPHETAMINE-AMPHETAMINE* Take 20 mg by mouth once ngozi * FAMOTIDINE 20 MG TABLET Take 1 tablet by mouth twice * B-COMPLEX WITH VITAMIN C TABL* Take 1 tablet by mouth once d * CHOLECALCIFEROL (VITAMIN D3) * Take 1 tablet by mouth once d * LACTOBACILLUS RHAMNOSUS GG-LA* Take 1 capsule by mouth daily * LORAZEPAM 0.5 MG TABLET Take by mouth at bedtime as n* TRIAMCINOLONE ACETONIDE 55 MC* Use 2 Sprays in each nostril * AZELASTINE 137 MCG (0.1 %) NA* Use 2 Sprays in each nostril * GUAIFENESIN ER 600 MG TABLET,* Take 2 tablets by mouth twice * KETOTIFEN 0.025 % (0.035 %) E* One drop to each eye 2 to 3 t * RIZATRIPTAN 10 MG TABLET Take 1 tablet by mouth as nee* TOPIRAMATE 50 MG TABLET Take 50 mg by mouth twice mara* ZIPRASIDONE 40 MG CAPSULE Take 40 mg by mouth daily wit* VITAMIN B COMPLEX TABLET Take 1 tablet by mouth once d* Problem List As Of Date 06/20/2020 Noted Resolved ASTHMA UNSPECIFIED [J45.909] 11/02/2014 Allergic rhinitis due to fungal spores [J30.89] More... Obesity, Class III, BMI 40-49.9 (morbid obesity*11/21/2006 Obstructive sleep apnea [G47.33] 08/19/2007 Toxic effect of venom [T63.91XA] 09/23/2007 11/28/2018 Moderate persistent asthma [J45.40] 11/02/2014 Allergic rhinitis due to dust mite [J30.89] 01/24/2018 Allergic rhinitis due to cat hair [J30.81] 01/24/2018 Seasonal allergic rhinitis due to pollen [J30.1]01/24/2018 Right ureteral calculus [N20.1] 02/15/2018 More... Nonspecific paroxysmal spell [R40.4] 08/14/2018 09/24/2018 Psychogenic nonepileptic seizure [F44.5] 08/14/2018 Transient alteration of awareness [R40.4] 08/14/2018 018 Concern about neurological disease without diag*08/14/2018 1 11/24/2017 Psychosocial stressors [Z65.8] 08/14/2018 Episodic mood disorder (HCC) [F39] 08/14/2018 Convulsions (HCC) [R56.9] 09/23/2018 Other terminal carman (current) drug therapy [Z79.899]08/22/2018 Severe manic bipolar I disorder with psychotic *09/24/2018 Toxic effect of venom [T63.91XA] 11/28/2018 Myalgia [M79.10] 01/29/2019 Chronic pain syndrome [G89.4] 01/29/2019 Concentration deficit [R41.840] 01/29/2019 Screening for breast cancer [Z12.39] 01/29/2019 Bipolar disorder, current episode mixed, modera*04/08/2019 Intractable migraine without status migrainosus*04/08/2019 Intertrigo [L30.4] 04/08/2019 Dyslipidemia [E78.5] 01/14/2020 IFG (impaired fasting glucose) [R73.01] 01/14/2020 Prescriptions ordered this encounter Disp Refills Start End CALCIUM CARBONATE 500 MG (1,250 MG)-* 90 t* 3 06/21/2020 Route: ORAL Sig: Take 1 tablet by mouth twice daily with meals. Medications Discontinued During This Encounter Prescriptions - euaazvv-ockngbhnt-whsvflc D3 (CALCIUM 500+D) 500 mg( 1,250mg) -200 unit per tablet (Discontinued) Take 1 tablet by mouth twice daily with meals. Encounter Status:Closed by MABLE PINEDO CNP on 06/21/20 OBSOLETE Refill (FAMPWS) Normal 06-20-2020 Kade ferris Uzair BEAULIEUWAVA K ([id number]) 1975 F [facility] Date Time Provider Department ([id number]) 06/20/20 RA GALVEZ During your visit today, we recorded the following informati on about you: Von Yara MEDINA 06/21/2020 9:42 AM Signed Patient phones requesting refills as follows: Pending Prescriptions Disp Refills GABAPENTIN 100 MG CAPSULE 90 capsule 1 Sig: Take 1 capsule by mouth three times daily for 98 days. EPI: No Please review and advise. Von Marteinessa MEDINA Allergies As of Date: 06/20/2020 Noted Allergy Reaction BETA BLOCKERS (BETA-BLOCKERS (BET*2013 15 - Contraindication-Medical Sharma* Comments: Avoid use of beta blockers and KERRIE inhibitors sinc e patient is on venom immunotherapy KERRIE INHIBITORS 11/02/2014 15 - Contraindication-Medical Sharma* Comments: Avoid use of beta blockers and KERRIE inhibitors sinc e patient is on venom immunotherapy Environmental Allergies [Other] 12/25/2006 Comments: Grasses, molds, dust mites, cats, cockroaches LEXAPRO (ESCITALOPRAM OXALATE) 10/30/2018 5 - Intolerance Comments: altered mood PROZAC (FLUOXETINE HCL) 10/30/2018 5 - Intolerance Comments: altered mood TRINTELLIX (VORTIOXETINE) 01/08/2020 1 - Mental Status Carbajal e VENOM-WASP 09/26/2007 VENOM-YELLOW HORNET 09/26/2007 16 - Unknown Comments: Yellow and white faced hornet VENOM-YELLOW JACKET PROTEIN 09/26/2007 VIIBRYD (VILAZODONE) 05/17/2020 1 - Mental Status Change Comments: agitated WELLBUTRIN (BUPROPION HCL) 05/08/2019 2 - Rash Comments: Agitation ZOLOFT (SERTRALINE HCL) 10/30/2018 5 - Intolerance Comments: altered mood Date Reviewed: 05/31/2020 Reviewed by: Rhiannon Najera RN - Fully Assessed Reason for Visit: Refill Request [94] Visit Diagnoses:Chronic pain syndrome [G89.4] Myalgia [M79.10] Order(s):gabapentin (NEURONTIN) 100 mg capsuleTake 1 capsu le by mouth three times daily for 98 days.Disp: 90 capsuleRfl: 1 Prescriptions as of 06/20/2020 Sig: GABAPENTIN 100 MG CAPSULE Take 1 capsule by mouth three* PRODIGEN 31 BILLION CELL CAPS* Take 1 capsule by mouth daily * ALBUTEROL SULFATE HFA 90 MCG/* Inhale 2 Puffs as instructed * AMITRIPTYLINE 50 MG TABLET Take 0.5 tablets by mouth mara* EPINEPHRINE 0.3 MG/0.3 ML INJ* Inject 0.3 mL intramuscularly * CETIRIZINE 10 MG TABLET Take 1 tablet by mouth once d* OYSCO-500 500 MG CALCIUM (1,* Take 1 tablet by mouth twice * MAGNESIUM OXIDE 500 MG TABLET Take 1 tablet by mouth once d* NYSTATIN 100,000 UNIT/GRAM TO* Apply 1 application to affect * FLUTICASONE PROPIONATE 115 MC* Inhale 2 Puffs as instructed * MELOXICAM 15 MG TABLET Take 0.5-1 tablets by mouth o* GOLD SOLANO MEDICATED BABY 79 %* Apply 1 application to affect * Patient taking differently: Apply 1 application to affect* CYCLOBENZAPRINE 10 MG TABLET Take 1 tablet by mouth three * ALBUTEROL SULFATE 2.5 MG/3 ML* Use 3 mL via nebulizer every * DEXTROAMPHETAMINE-AMPHETAMINE* Take 20 mg by mouth once ngozi * FAMOTIDINE 20 MG TABLET Take 1 tablet by mouth twice * X CALCIUM CARBONATE 500 MG (1,2* Take 1 tablet by mouth twic e * B-COMPLEX WITH VITAMIN C TABL* Take 1 tablet by mouth once d * CHOLECALCIFEROL (VITAMIN D3) * Take 1 tablet by mouth once d * LACTOBACILLUS RHAMNOSUS GG-LA* Take 1 capsule by mouth daily * LORAZEPAM 0.5 MG TABLET Take by mouth at bedtime as n* TRIAMCINOLONE ACETONIDE 55 MC* Use 2 Sprays in each nostril * AZELASTINE 137 MCG (0.1 %) NA* Use 2 Sprays in each nostril * GUAIFENESIN ER 600 MG TABLET,* Take 2 tablets by mouth twice * KETOTIFEN 0.025 % (0.035 %) E* One drop to each eye 2 to 3 t * RIZATRIPTAN 10 MG TABLET Take 1 tablet by mouth as nee* TOPIRAMATE 50 MG TABLET Take 50 mg by mouth twice mara* ZIPRASIDONE 40 MG CAPSULE Take 40 mg by mouth daily wit* VITAMIN B COMPLEX TABLET Take 1 tablet by mouth once d* Problem List As Of Date 06/20/2020 Noted Resolved ASTHMA UNSPECIFIED [J45.909] 11/02/2014 Allergic rhinitis due to fungal spores [J30.89] More... Obesity, Class III, BMI 40-49.9 (morbid obesity*11/21/2006 Obstructive sleep apnea [G47.33] 08/19/2007 Toxic effect of venom [T63.91XA] 09/23/2007 11/28/2018 Moderate persistent asthma [J45.40] 11/02/2014 Allergic rhinitis due to dust mite [J30.89] 01/24/2018 Allergic rhinitis due to cat hair [J30.81] 01/24/2018 Seasonal allergic rhinitis due to pollen [J30.1]01/24/2018 Right ureteral calculus [N20.1] 02/15/2018 More... Nonspecific paroxysmal spell [R40.4] 08/14/2018 09/24/2018 Psychogenic nonepileptic seizure [F44.5] 08/14/2018 Transient alteration of awareness [R40.4] 08/14/2018 018 Concern about neurological disease without diag*08/14/2018 1 11/24/2017 Psychosocial stressors [Z65.8] 08/14/2018 Episodic mood disorder (HCC) [F39] 08/14/2018 Convulsions (HCC) [R56.9] 09/23/2018 Other terminal carman (current) drug therapy [Z79.899]08/22/2018 Severe manic bipolar I disorder with psychotic *09/24/2018 Toxic effect of venom [T63.91XA] 11/28/2018 Myalgia [M79.10] 01/29/2019 Chronic pain syndrome [G89.4] 01/29/2019 Concentration deficit [R41.840] 01/29/2019 Screening for breast cancer [Z12.39] 01/29/2019 Bipolar disorder, current episode mixed, modera*04/08/2019 Intractable migraine without status migrainosus*04/08/2019 Intertrigo [L30.4] 04/08/2019 Dyslipidemia [E78.5] 01/14/2020 IFG (impaired fasting glucose) [R73.01] 01/14/2020 Prescriptions ordered this encounter Disp Refills Start End GABAPENTIN 100 MG CAPSULE 90 c* 1 06/21/2020 09/27/2020 Route: ORAL Sig: Take 1 capsule by mouth three times daily for 98 days. Medications Discontinued During This Encounter Prescriptions - gabapentin (NEURONTIN) 100 mg capsule (Discontinued) Take 1 capsule by mouth three times daily for 98 days. Encounter Status:Closed by RA GALVEZ DO on 06/21/20 cnpn on 2020-06-03 CNPN Telephone (GLQ) Normal 06-03-[address] [facility] BHAVESH BEAULIEU ([id number]) 1975 [facility] Date Time Provider Department ([id number]) 06/03/20 NERY CANELA GLQ During your visit today, we recorded the following informati on about you: Tricia Zuñiga 06/03/2020 10:[address] Canela, Patient has a virtual visit with you on 07/09 and wants to do a urine analysis at the lab before having the virtual done. Can you order it please? Thanks, Tricia Allergies As of Date: 06/03/2020 Noted Allergy Reaction BETA BLOCKERS (BETA-BLOCKERS (BET*2013 15 - Contraindication-Medical Sharma* Comments: Avoid use of beta blockers and KERRIE inhibitors [facility] e patient is on venom immunotherapy KERRIE INHIBITORS 11/02/2014 15 - Contraindication-Medical Sharma* Comments: Avoid use of beta blockers and KERRIE inhibitors sin e patient is on venom immunotherapy Environmental Allergies [Other] 12/25/2006 Comments: Grasses, molds, dust mites, cats, cockroaches LEXAPRO (ESCITALOPRAM OXALATE) 10/30/2018 5 - Intolerance Comments: altered mood PROZAC (FLUOXETINE HCL) 10/30/2018 5 - Intolerance Comments: altered mood TRINTELLIX (VORTIOXETINE) 01/08/2020 1 - Mental Status Carbajal e VENOM-WASP 09/26/2007 VENOM-YELLOW HORNET 09/26/2007 16 - Unknown Comments: Yellow and white faced hornet VENOM-YELLOW JACKET PROTEIN 09/26/2007 VIIBRYD (VILAZODONE) 05/17/2020 1 - Mental Status Change Comments: agitated WELLBUTRIN (BUPROPION HCL) 05/08/2019 2 - Rash Comments: Agitation ZOLOFT (SERTRALINE HCL) 10/30/2018 5 - Intolerance Comments: altered mood Date Reviewed: 05/31/2020 Reviewed by: Rhiannon Najera RN - Fully Assessed Reason for Visit: Urine analysis order [Other] Prescriptions as of 06/03/2020 Sig: PRODIGEN 31 BILLION CELL CAPS* Take 1 capsule by mouth daily * ALBUTEROL SULFATE HFA 90 MCG/* Inhale 2 Puffs as instructed * AMITRIPTYLINE 50 MG TABLET Take 0.5 tablets by mouth mara* EPINEPHRINE 0.3 MG/0.3 ML INJ* Inject 0.3 mL intramuscularly * CETIRIZINE 10 MG TABLET Take 1 tablet by mouth once d* GABAPENTIN 100 MG CAPSULE Take 1 capsule by mouth three* OYSCO-500 500 MG CALCIUM (1,* Take 1 tablet by mouth twice * MAGNESIUM OXIDE 500 MG TABLET Take 1 tablet by mouth once d* NYSTATIN 100,000 UNIT/GRAM TO* Apply 1 application to affect * FLUTICASONE PROPIONATE 115 MC* Inhale 2 Puffs as instructed * MELOXICAM 15 MG TABLET Take 0.5-1 tablets by mouth o* GOLD SOLANO MEDICATED BABY 79 %* Apply 1 application to affect * Patient taking differently: Apply 1 application to affect* CYCLOBENZAPRINE 10 MG TABLET Take 1 tablet by mouth three * ALBUTEROL SULFATE 2.5 MG/3 ML* Use 3 mL via nebulizer every * DEXTROAMPHETAMINE-AMPHETAMINE* Take 20 mg by mouth once ngozi * FAMOTIDINE 20 MG TABLET Take 1 tablet by mouth twice * CALCIUM CARBONATE 500 MG (1,2* Take 1 tablet by mouth twice * B-COMPLEX WITH VITAMIN C TABL* Take 1 tablet by mouth once d * CHOLECALCIFEROL (VITAMIN D3) * Take 1 tablet by mouth once d * LACTOBACILLUS RHAMNOSUS GG-LA* Take 1 capsule by mouth daily * LORAZEPAM 0.5 MG TABLET Take by mouth at bedtime as n* TRIAMCINOLONE ACETONIDE 55 MC* Use 2 Sprays in each nostril * AZELASTINE 137 MCG (0.1 %) NA* Use 2 Sprays in each nostril * GUAIFENESIN ER 600 MG TABLET,* Take 2 tablets by mouth twice * KETOTIFEN 0.025 % (0.035 %) E* One drop to each eye 2 to 3 t * RIZATRIPTAN 10 MG TABLET Take 1 tablet by mouth as nee* TOPIRAMATE 50 MG TABLET Take 50 mg by mouth twice mara* ZIPRASIDONE 40 MG CAPSULE Take 40 mg by mouth daily wit* VITAMIN B COMPLEX TABLET Take 1 tablet by mouth once d* Problem List As Of Date 06/03/2020 Noted Resolved ASTHMA UNSPECIFIED [J45.909] 11/02/2014 Allergic rhinitis due to fungal spores [J30.89] More... Obesity, Class III, BMI 40-49.9 (morbid obesity*11/21/2006 Obstructive sleep apnea [G47.33] 08/19/2007 Toxic effect of venom [T63.91XA] 09/23/2007 11/28/2018 Moderate persistent asthma [J45.40] 11/02/2014 Allergic rhinitis due to dust mite [J30.89] 01/24/2018 Allergic rhinitis due to cat hair [J30.81] 01/24/2018 Seasonal allergic rhinitis due to pollen [J30.1]01/24/2018 Right ureteral calculus [N20.1] 02/15/2018 More... Nonspecific paroxysmal spell [R40.4] 08/14/2018 09/24/2018 Psychogenic nonepileptic seizure [F44.5] 08/14/2018 Transient alteration of awareness [R40.4] 08/14/2018 018 Concern about neurological disease without diag*08/14/2018 1 11/24/2017 Psychosocial stressors [Z65.8] 08/14/2018 Episodic mood disorder (HCC) [F39] 08/14/2018 Convulsions (HCC) [R56.9] 09/23/2018 Other terminal carman (current) drug therapy [Z79.899]08/22/2018 Severe manic bipolar I disorder with psychotic *09/24/2018 Toxic effect of venom [T63.91XA] 11/28/2018 Myalgia [M79.10] 01/29/2019 Chronic pain syndrome [G89.4] 01/29/2019 Concentration deficit [R41.840] 01/29/2019 Screening for breast cancer [Z12.39] 01/29/2019 Bipolar disorder, current episode mixed, modera*04/08/2019 Intractable migraine without status migrainosus*04/08/2019 Intertrigo [L30.4] 04/08/2019 Dyslipidemia [E78.5] 01/14/2020 IFG (impaired fasting glucose) [R73.01] 01/14/2020 Encounter Status:Closed by TRICIA ZUÑIGA on 06/03/20 progress on 2020-05 PROGRESS HNO ID: [id number] Normal 05-31-2020 [facility] Author: Ninfa Mcdonald Mckenna ([id number]) Service: ? Author Type: Physician Type: Progress Notes Filed: 06/02/2020 6:45 PM Note Text: Ms. Beaulieu is s/p right US guided breast biopsy done on Pathology reveals: Path ? ?patchy stromal fibrosis, microcys ts and mildly ectatic ducts? Patient denies any problems. PMH/PSH - unchanged from previous note Review of systems: denies fevers Examination: wound is healing well, no evidence of infection Ecchymoses present, no hematoma Impression: breast stromal fibrosis Plan: I have explained to patient that she will require follow up with repeat US/mammograms in 6 months. Orders will be placed and patient will be placed on a recall list. After radiological studies are done , she will follow up with me in the clinic for examination. Follow up with me sooner if worsening signs/symptoms. Patient to return to her primary physician for medical care. I have answered all of patient's questions and she has no fu rther questions. cnov on 2020-05-31 CNOV Office Visit (BRICE) Normal 05-31-[address] [place] [address] [facility] BHAVESH BEAULIEU Valeri ([id number]) 1975 F [facility] Date Time Provider Department ([id number]) 05/31/20 1:20 PM NINFA MCDONALD During your visit today, we recorded the following informati on about you: Temperature Pulse Blood pressure Weight 98.7 degrees 113/minute 122/84 112 kg Ninfa Mcdonald MD 06/02/2020 6:45 PM Signed Ms. Beaulieu is s/p right US guided breast biopsy done on Pathology reveals: Path ? ?patchy stromal fibrosis, microcys ts and mildly ectatic ducts? Patient denies any problems. PMH/PSH - unchanged from previous note Review of systems: denies fevers Examination: wound is healing well, no evidence of infection Ecchymoses present, no hematoma Impression: breast stromal fibrosis Plan: I have explained to patient that she will require follow up with repeat US/mammograms in 6 months. Orders will b e placed and patient will be placed on a recall list. After radiological studie s are done, she will follow up with me in the clinic for examination. Follow up with me sooner if worsening signs/symptoms. Patient to return to her primary physician for medical care. I have answered all of patient's questions and she has no further questions. Referring Provider: NINFA MCDONALD [[id number]] Allergies As of Date: 05/31/2020 Noted Allergy Reaction BETA BLOCKERS (BETA-BLOCKERS (BET*2013 15 - Contraindication-Medical Sharma* Comments: Avoid use of beta blockers and KERRIE inhibitors sinc e patient is on venom immunotherapy KERRIE INHIBITORS 11/02/2014 15 - Contraindication-Medical Sharma* Comments: Avoid use of beta blockers and KERRIE inhibitors sinc e patient is on venom immunotherapy Environmental Allergies [Other] 12/25/2006 Comments: Grasses, molds, dust mites, cats, cockroaches LEXAPRO (ESCITALOPRAM OXALATE) 10/30/2018 5 - Intolerance Comments: altered mood PROZAC (FLUOXETINE HCL) 10/30/2018 5 - Intolerance Comments: altered mood TRINTELLIX (VORTIOXETINE) 01/08/2020 1 - Mental Status Carbajal e VENOM-WASP 09/26/2007 VENOM-YELLOW HORNET 09/26/2007 16 - Unknown Comments: Yellow and white faced hornet VENOM-YELLOW JACKET PROTEIN 09/26/2007 VIIBRYD (VILAZODONE) 05/17/2020 1 - Mental Status Change Comments: agitated WELLBUTRIN (BUPROPION HCL) 05/08/2019 2 - Rash Comments: Agitation ZOLOFT (SERTRALINE HCL) 10/30/2018 5 - Intolerance Comments: altered mood Date Reviewed: 05/31/2020 Reviewed by: Rhiannon Najera RN - Fully Assessed Reason for Visit: Post Op [174] Primary Visit Diagnosis:Fibrosis, breast, right [N60.31] Order(s):[facility] RT [[id number]] Order #: [id number] FUT URE US BREAST LTD RT [[id number]] Order #: [id number] FUTURE Prescriptions as of 05/31/2020 Sig: PRODIGEN 31 BILLION CELL CAPS* Take 1 capsule by mouth daily * ALBUTEROL SULFATE HFA 90 MCG/* Inhale 2 Puffs as instructed * AMITRIPTYLINE 50 MG TABLET Take 0.5 tablets by mouth mara* EPINEPHRINE 0.3 MG/0.3 ML INJ* Inject 0.3 mL intramuscularly * CETIRIZINE 10 MG TABLET Take 1 tablet by mouth once d* OYSCO-500 500 MG CALCIUM (1,* Take 1 tablet by mouth twice * MAGNESIUM OXIDE 500 MG TABLET Take 1 tablet by mouth once d* NYSTATIN 100,000 UNIT/GRAM TO* Apply 1 application to affect * FLUTICASONE PROPIONATE 115 MC* Inhale 2 Puffs as instructed * MELOXICAM 15 MG TABLET Take 0.5-1 tablets by mouth o* GOLD SOLANO MEDICATED BABY 79 %* Apply 1 application to affect * Patient taking differently: Apply 1 application to affect* CYCLOBENZAPRINE 10 MG TABLET Take 1 tablet by mouth three * ALBUTEROL SULFATE 2.5 MG/3 ML* Use 3 mL via nebulizer every * DEXTROAMPHETAMINE-AMPHETAMINE* Take 20 mg by mouth once ngozi * FAMOTIDINE 20 MG TABLET Take 1 tablet by mouth twice * CALCIUM CARBONATE 500 MG (1,2* Take 1 tablet by mouth twice * B-COMPLEX WITH VITAMIN C TABL* Take 1 tablet by mouth once d * CHOLECALCIFEROL (VITAMIN D3) * Take 1 tablet by mouth once d * LORAZEPAM 0.5 MG TABLET Take by mouth at bedtime as n* TRIAMCINOLONE ACETONIDE 55 MC* Use 2 Sprays in each nostril * AZELASTINE 137 MCG (0.1 %) NA* Use 2 Sprays in each nostril * GUAIFENESIN ER 600 MG TABLET,* Take 2 tablets by mouth twice * KETOTIFEN 0.025 % (0.035 %) E* One drop to each eye 2 to 3 t * RIZATRIPTAN 10 MG TABLET Take 1 tablet by mouth as nee* TOPIRAMATE 50 MG TABLET Take 50 mg by mouth twice mara* ZIPRASIDONE 40 MG CAPSULE Take 40 mg by mouth daily wit* VITAMIN B COMPLEX TABLET Take 1 tablet by mouth once d* GABAPENTIN 100 MG CAPSULE Take 1 capsule by mouth three* LACTOBACILLUS RHAMNOSUS GG-LA* Take 1 capsule by mouth daily * Problem List As Of Date 05/31/2020 Noted Resolved ASTHMA UNSPECIFIED [J45.909] 11/02/2014 Allergic rhinitis due to fungal spores [J30.89] More... Obesity, Class III, BMI 40-49.9 (morbid obesity*11/21/2006 Obstructive sleep apnea [G47.33] 08/19/2007 Toxic effect of venom [T63.91XA] 09/23/2007 11/28/2018 Moderate persistent asthma [J45.40] 11/02/2014 Allergic rhinitis due to dust mite [J30.89] 01/24/2018 Allergic rhinitis due to cat hair [J30.81] 01/24/2018 Seasonal allergic rhinitis due to pollen [J30.1]01/24/2018 Right ureteral calculus [N20.1] 02/15/2018 More... Nonspecific paroxysmal spell [R40.4] 08/14/2018 09/24/2018 Psychogenic nonepileptic seizure [F44.5] 08/14/2018 Transient alteration of awareness [R40.4] 08/14/2018 018 Concern about neurological disease without diag*08/14/2018 1 11/24/2017 Psychosocial stressors [Z65.8] 08/14/2018 Episodic mood disorder (HCC) [F39] 08/14/2018 Convulsions (HCC) [R56.9] 09/23/2018 Other terminal carman (current) drug therapy [Z79.899]08/22/2018 Severe manic bipolar I disorder with psychotic *09/24/2018 Toxic effect of venom [T63.91XA] 11/28/2018 Myalgia [M79.10] 01/29/2019 Chronic pain syndrome [G89.4] 01/29/2019 Concentration deficit [R41.840] 01/29/2019 Screening for breast cancer [Z12.39] 01/29/2019 Bipolar disorder, current episode mixed, modera*04/08/2019 Intractable migraine without status migrainosus*04/08/2019 Intertrigo [L30.4] 04/08/2019 Dyslipidemia [E78.5] 01/14/2020 IFG (impaired fasting glucose) [R73.01] 01/14/2020 Disposition: Return in about 6 months (around 12/01/2020). Follow-up and Disposition History Recorded Encounter Status:Closed by MD NINFA MCDONALD on 06/02/20 cnnurse on BANNERURSE Nurse Visit (ALLMED) Normal [address] [facility] BHAVESH BEAULIEU ([id number]) 1975 F [facility]ly [facility], later [facility] Date Time Provider Department ([id number]) 05/27/20 1:20 PM NURSE LUIS OLVERA During your visit today, we recorded the following informati on about you: Ashwini Chu RN 05/27/2020 1:23 PM Signed Charged for 2 venom vials. 8 doses total. 4 stinging insects . Allergies As of Date: 05/27/2020 Noted Allergy Reaction BETA BLOCKERS (BETA-BLOCKERS (BET*2013 15 - Contraindication-Medical Sharma* Comments: Avoid use of beta blockers and KERRIE inhibitors sinc e patient is on venom immunotherapy KERRIE INHIBITORS 11/02/2014 15 - Contraindication-Medical Sharma* Comments: Avoid use of beta blockers and KERRIE inhibitors sin e patient is on venom immunotherapy Environmental Allergies [Other] 12/25/2006 Comments: Grasses, molds, dust mites, cats, cockroaches LEXAPRO (ESCITALOPRAM OXALATE) 10/30/2018 5 - Intolerance Comments: altered mood PROZAC (FLUOXETINE HCL) 10/30/2018 5 - Intolerance Comments: altered mood TRINTELLIX (VORTIOXETINE) 01/08/2020 1 - Mental Status Carbajal e VENOM-WASP 09/26/2007 VENOM-YELLOW HORNET 09/26/2007 16 - Unknown Comments: Yellow and white faced hornet VENOM-YELLOW JACKET PROTEIN 09/26/2007 VIIBRYD (VILAZODONE) 05/17/2020 1 - Mental Status Change Comments: agitated WELLBUTRIN (BUPROPION HCL) 05/08/2019 2 - Rash Comments: Agitation ZOLOFT (SERTRALINE HCL) 10/30/2018 5 - Intolerance Comments: altered mood Date Reviewed: 05/19/2020 Reviewed by: Kuldeep Parker LPN - Fully Assessed Reason for Visit: venom vial charge [Other] Primary Visit Diagnosis:Toxic effect of venom, accidental or unintentional, subsequent encounter [T63.91XD] Prescriptions as of 05/27/2020 Sig: PRODIGEN 31 BILLION CELL CAPS* Take 1 capsule by mouth daily * ALBUTEROL SULFATE HFA 90 MCG/* Inhale 2 Puffs as instructed * AMITRIPTYLINE 50 MG TABLET Take 0.5 tablets by mouth mara* EPINEPHRINE 0.3 MG/0.3 ML INJ* Inject 0.3 mL intramuscularly * CETIRIZINE 10 MG TABLET Take 1 tablet by mouth once d* GABAPENTIN 100 MG CAPSULE Take 1 capsule by mouth three* OYSCO-500 500 MG CALCIUM (1,* Take 1 tablet by mouth twice * MAGNESIUM OXIDE 500 MG TABLET Take 1 tablet by mouth once d* NYSTATIN 100,000 UNIT/GRAM TO* Apply 1 application to affect * FLUTICASONE PROPIONATE 115 MC* Inhale 2 Puffs as instructed * MELOXICAM 15 MG TABLET Take 0.5-1 tablets by mouth o* GOLD SOLANO MEDICATED BABY 79 %* Apply 1 application to affect * Patient taking differently: Apply 1 application to affect* CYCLOBENZAPRINE 10 MG TABLET Take 1 tablet by mouth three * ALBUTEROL SULFATE 2.5 MG/3 ML* Use 3 mL via nebulizer every * DEXTROAMPHETAMINE-AMPHETAMINE* Take 20 mg by mouth once ngozi * FAMOTIDINE 20 MG TABLET Take 1 tablet by mouth twice * CALCIUM CARBONATE 500 MG (1,2* Take 1 tablet by mouth twice * B-COMPLEX WITH VITAMIN C TABL* Take 1 tablet by mouth once d * CHOLECALCIFEROL (VITAMIN D3) * Take 1 tablet by mouth once d * LACTOBACILLUS RHAMNOSUS GG-LA* Take 1 capsule by mouth daily * LORAZEPAM 0.5 MG TABLET Take by mouth at bedtime as n* TRIAMCINOLONE ACETONIDE 55 MC* Use 2 Sprays in each nostril * AZELASTINE 137 MCG (0.1 %) NA* Use 2 Sprays in each nostril * GUAIFENESIN ER 600 MG TABLET,* Take 2 tablets by mouth twice * KETOTIFEN 0.025 % (0.035 %) E* One drop to each eye 2 to 3 t * RIZATRIPTAN 10 MG TABLET Take 1 tablet by mouth as nee* TOPIRAMATE 50 MG TABLET Take 50 mg by mouth twice mara* ZIPRASIDONE 40 MG CAPSULE Take 40 mg by mouth daily wit* VITAMIN B COMPLEX TABLET Take 1 tablet by mouth once d* Problem List As Of Date 05/27/2020 Noted Resolved ASTHMA UNSPECIFIED [J45.909] 11/02/2014 Allergic rhinitis due to fungal spores [J30.89] More... Obesity, Class III, BMI 40-49.9 (morbid obesity*11/21/2006 Obstructive sleep apnea [G47.33] 08/19/2007 Toxic effect of venom [T63.91XA] 09/23/2007 11/28/2018 Moderate persistent asthma [J45.40] 11/02/2014 Allergic rhinitis due to dust mite [J30.89] 01/24/2018 Allergic rhinitis due to cat hair [J30.81] 01/24/2018 Seasonal allergic rhinitis due to pollen [J30.1]01/24/2018 Right ureteral calculus [N20.1] 02/15/2018 More... Nonspecific paroxysmal spell [R40.4] 08/14/2018 09/24/2018 Psychogenic nonepileptic seizure [F44.5] 08/14/2018 Transient alteration of awareness [R40.4] 08/14/2018 018 Concern about neurological disease without diag*08/14/2018 1 11/24/2017 Psychosocial stressors [Z65.8] 08/14/2018 Episodic mood disorder (HCC) [F39] 08/14/2018 Convulsions (HCC) [R56.9] 09/23/2018 Other group home (current) drug therapy [Z79.899]08/22/2018 Severe manic bipolar I disorder with psychotic *09/24/2018 Toxic effect of venom [T63.91XA] 11/28/2018 Myalgia [M79.10] 01/29/2019 Chronic pain syndrome [G89.4] 01/29/2019 Concentration deficit [R41.840] 01/29/2019 Screening for breast cancer [Z12.39] 01/29/2019 Bipolar disorder, current episode mixed, modera*04/08/2019 Intractable migraine without status migrainosus*04/08/2019 Intertrigo [L30.4] 04/08/2019 Dyslipidemia [E78.5] 01/14/2020 IFG (impaired fasting glucose) [R73.01] 01/14/2020 Visit Notes: >> Ashwini Chu RN [facility] May 27, 2020 1:22 PM Status: Sign ed Charged for 2 venom vials. 8 doses total. 4 stinging insects . Encounter Status:Closed by ASHWINI CHU RN on 05/27/20 cnco on 2020-05-27 CNCO Letter Text Normal 05-27-2020 [facility] ([id number]) procedure on 05-21 PROCEDURE HNO ID: [id number] Normal 05-21-2020 [facility] Author: Ninfa Mcdonald [facility] ([id number]) Service: ? Author Type: Physician Type: Procedures Filed: 05/21/2020 11:13 AM Note Text: After informed consent was given, patient was placed in the supine position. Appropriate time out protocol was followed. The ultrasound transducer was used to localize the lesion on the left breast. The lesion was located in the 11:00 position, 6 cm from the nipple, middle depth Because the patient had large, ptotic breasts, the patient w as slightly rolled medially, so that her breast was in the nipples up position. The orientation of the transducer was transverse. The site of the abnormal breast lesion was prepped with a be tadyne skin preparation. Sterile surgical drape was placed. The skin and subcutaneous tissue at the site of the breast l esion was infiltrated with 1% xylocaine with epinephrine. Total of 10 ml was used. A small skin incision was made with an 11 blade scalpel medi al to the lesion. The Mammotome Elite device was the positioned into the patie nt?s breast into the breast lesion and this was confirmed under ultrasou nd guidance. Several core samples of breast tissue were then obtained. A marker clip was placed at the biopsy site, and this was co nfirmed by ultrasound. Hemostasis was achieved by pressure. Steristrips were used to reapproximate the skin. Opsite was then applied. Patient tolerated procedure well. Complications - none EBL - minimal surgical pathology on 2020-05-20 SURGICAL Specimen originated from [facility] Normal 05-20-2020 [facility] Specimen #: [id number] Clinic Submitting Physician: NINFA MCDONALD MD [facility] ([id number]) FINAL DIAGNOSIS Left breast, ultrasound-guided core biopsy with clip placeme nt: - Patchy stromal fibrosis, microcysts, and mildly ectatic du cts. Jaye Pratt M.D. (Electronic Signature) SPECIMEN SUBMITTED A: LEFT BREAST CLINICAL DATA ABN MAMMO GROSS DESCRIPTION A. Received in formalin labeled as Left breast are multiple segments of cylindrical tissue aggregating to 2.4 x 0.9 x 0.2 cm, yell ow-brown and of a soft consistency. The specimen is removed from the patient a t no specified time on 05/20/2020. The specimen was placed in formalin at no specified time on 05/20/2020. Totally submitted in formalin in two cassettes. Gross examination performed at [facility], [address] [place] [address] 05/21/2020 1:25:03 AM Date of Report: 05/24/2020 Date of Procedure: 05/20/2020 Date of Receipt: 05/20/2020 Submitted by: NINFA MCDONALD MD Location: [facility] Diagnostic interpretation performed at [facility], [address] [place] [address]. CLIA Number: [id number] progress on 2020-05 PROGRESS HNO ID: [id number] Normal 05-19-2020 [facility] Author: Ninfa Mcdonald Mckenna ([id number]) Service: ? Author Type: Physician Type: Progress Notes Filed: 05/21/2020 11:13 AM Note Text: Ms. Beaulieu is here for US guided right breast biopsy. She tolerated this well. Follow up next week for wound check and discussion of pathol ogy results. PROGRESS HNO ID: [id number] Normal 05-19-2020 [facility] Author: Derrell Whitney (Tech) Mckenna ([id number]) Service: ? Author Type: Msws Type: Progress Notes Filed: 05/19/2020 4:00 PM Note Text: Radiology Service Progress Note PATIENT NAME: Bhavesh Beaulieu DATE OF SERVICE: May 19, 2020 TIME: 3:58 PM PATIENT IDENTITY VERIFICATION COMPLETED USING TWO (2) IDENTI FIERS: Name and Date of confirmed by patient verbally. FALL SCREENING: Has the patient had 2 falls in the last year or 1 fall with injury or currently using an Ambulatory Assistive Devic e (Walker, Cane, Wheelchair, Crutches, etc.)? No PATIENT GENDER DATA: Female. status: : No status: NO. PATIENT RELEVANT IMPLANT DATA REVIEWED: Not Applicable RADIOLOGY DEPARTMENT: Mammography left clip placement PERIPHERAL IV DATA: Not applicable SIGNED BY: Derrell Whiteny May 19, 2020 3:58 PM chucky diagnostic lt o n 2020-05-19 [facility] * * *Final Report* * * Normal 05-19-2020 [facility] DATE OF EXAM: May 19 2020 3:53PM [facility] 0621 - [facility] / ([id number]) PROCEDURE REASON: Abnormal ultrasound of breast * * * * Physician Interpretation * * * * RESULT: #[id number] - [facility] UNILATERAL LEFT DIGITAL DIAGNOSTIC MAMMOGRAM WITH CAD: 020 HISTORY: Abnormal Ultrasound Of Breast /Left Diagnostic Mamm ogram;Clip Placement /Abnormal Mammogram. RESULT: TECHNIQUE: The study was acquired using full field digital t echnology and interpreted from soft copy. Current study was also evaluated with a Computer Aided Detec tion (CAD). Comparison is made to exams dated: 05/11/2020 mammogram, 2019 mammogram, 12/02/2019 mammogram, 05/02/2019 mammogram, 9 mammogram - [facility], and 04/07/2019 mammogram - [facility]. There are scattered fibroglandular elements i n left breast. There is a new biopsy clip in the left breast at 12 o'clock. There is localized hemorrhage around biopsy site. The previous asymme try is therefore not seen currently. IMPRESSION: POST PROCEDURE MAMMOGRAM FOR MARKER PLACEMENT Celestino youngblood/tierney:05/19/2020 16:03:47 Body Repairer(s): Lilia Galvan RT(R)(M), [facility] Mammogram BI-RADS: Post-procedure mammogram for marker place ment Multiple national specialty organizations have released ajit st cancer screening guidelines for women at average risk for developin g breast cancer - guidelines that are based on both evidence and opin ion, yet differ on when to start and how often to screen for breast c ancer. With representation from Breast Imaging, Internal Medicine, Women 's Health, Family Medicine, and Medical/Surgical Oncology, the [facility] has carefully reviewed the data and reached the following consen patricia: 1) All women should engage in shared decision-making with eir providers to decide when to start and how often to screen; 2) All women should have the opportunity to start screening mammography at age 40; 3) For women ages 45-55, we recommend annual screening mammo grams; 4) For women ages 55 and over, we support both the transitio n from an annual to a biennial interval if this aligns more with patie nt's values and preferences, or continuation with annual screening; 5) All women should discuss with their providers when to sto p screening mammograms. 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: Tiernye Transcribe Date/Time: May 19 2020 3:53P Dictated by: CELESTINO ARANGO MD This examination was interpreted and the report reviewed and electronically signed by: CELESTINO ARANGO MD on May 19 2020 4:03PM EST [id number] cnov on 2020-05-19 CNOV Office Visit (GENSWS) Normal 07-01-[address] [place] [address] Clinic BHAVESH BEAULIEU ([id number]) 1975 F [facility] Date Time Provider Department ([id number]) 05/19/20 2:30 PM NINFA MCDONALD During your visit today, we recorded the following informati on about you: Ninfa Mcdonald MD 05/21/2020 11:13 AM Signed Ms. Beaulieu is here for US guided right breast biopsy. She tolerated this well. Follow up next week for wound check and discussion of pathol ogy results. Ninfa Mcdonald MD 05/21/2020 11:13 AM Signed After informed consent was given, patient was placed i n the supine position. Appropriate time out protocol was followed. The ultrasound transducer was used to localize t he lesion on the left breast. The lesion was located in th e 11:00 position, 6 cm from the nipple, middle depth Because the patient had large, ptotic br easts, the patient was slightly rolled medially, so that her breast was in the nipples up positio n. The orientation of the transducer was transverse. The site of the abnormal breast lesion was prepped with a be tadyne skin preparation. Sterile surgical drape was placed. The skin and subcutaneous tissue at the site of the breast l esion was infiltrated with 1% xylocaine with epinephrine. Total of 10 ml was used. A small skin incision was made with an 11 blade scalpel medial to the lesion. The Mammotome Elite device was the positioned into the patient?s breast into the breast lesion and this was confirmed under ultrasound gu idance. Several core samples of breast tissue were then obtained. A marker clip was placed at the biopsy site, and this was co nfirmed by ultrasound. Hemostasis was achieved by pressure. Steristrips were used to reapproximate the skin. Opsite was then applied. Patient tolerated procedure well. Complications - none EBL - minimal Referring Provider: NINFA MCDONALD [[id number]] Allergies As of Date: 05/19/2020 Noted Allergy Reaction BETA BLOCKERS (BETA-BLOCKERS (BET*2013 15 - Contraindication-Medical Sharma* Comments: Avoid use of beta blockers and KERRIE inhibitors sinc e patient is on venom immunotherapy KERRIE INHIBITORS 11/02/2014 15 - Contraindication-Medical Sharma* Comments: Avoid use of beta blockers and KERRIE inhibitors sinc e patient is on venom immunotherapy Environmental Allergies [Other] 12/25/2006 Comments: Grasses, molds, dust mites, cats, cockroaches LEXAPRO (ESCITALOPRAM OXALATE) 10/30/2018 5 - Intolerance Comments: altered mood PROZAC (FLUOXETINE HCL) 10/30/2018 5 - Intolerance Comments: altered mood TRINTELLIX (VORTIOXETINE) 01/08/2020 1 - Mental Status Carbajal e VENOM-WASP 09/26/2007 VENOM-YELLOW HORNET 09/26/2007 16 - Unknown Comments: Yellow and white faced hornet VENOM-YELLOW JACKET PROTEIN 09/26/2007 VIIBRYD (VILAZODONE) 05/17/2020 1 - Mental Status Change Comments: agitated WELLBUTRIN (BUPROPION HCL) 05/08/2019 2 - Rash Comments: Agitation ZOLOFT (SERTRALINE HCL) 10/30/2018 5 - Intolerance Comments: altered mood Date Reviewed: 05/19/2020 Reviewed by: Kuldeep Parker LPN - Fully Assessed Reason for Visit: Procedure [88] Cmt: Lt breast Bx Primary Visit Diagnosis:Abnormal ultrasound of breast [R92.8 ] Order(s):SURGICAL PATHOLOGY [[id number]] Order #: [id number] c. #:[id number] Prescriptions as of 05/19/2020 Sig: PRODIGEN 31 BILLION CELL CAPS* Take 1 capsule by mouth daily * ALBUTEROL SULFATE HFA 90 MCG/* Inhale 2 Puffs as instructed * AMITRIPTYLINE 50 MG TABLET Take 0.5 tablets by mouth mara* EPINEPHRINE 0.3 MG/0.3 ML INJ* Inject 0.3 mL intramuscularly * CETIRIZINE 10 MG TABLET Take 1 tablet by mouth once d* GABAPENTIN 100 MG CAPSULE Take 1 capsule by mouth three* OYSCO-500 500 MG CALCIUM (1,* Take 1 tablet by mouth twice * MAGNESIUM OXIDE 500 MG TABLET Take 1 tablet by mouth once d* NYSTATIN 100,000 UNIT/GRAM TO* Apply 1 application to affect * FLUTICASONE PROPIONATE 115 MC* Inhale 2 Puffs as instructed * MELOXICAM 15 MG TABLET Take 0.5-1 tablets by mouth o* GOLD SOLANO MEDICATED BABY 79 %* Apply 1 application to affect * Patient taking differently: Apply 1 application to affect* CYCLOBENZAPRINE 10 MG TABLET Take 1 tablet by mouth three * ALBUTEROL SULFATE 2.5 MG/3 ML* Use 3 mL via nebulizer every * DEXTROAMPHETAMINE-AMPHETAMINE* Take 20 mg by mouth once ngozi * FAMOTIDINE 20 MG TABLET Take 1 tablet by mouth twice * CALCIUM CARBONATE 500 MG (1,2* Take 1 tablet by mouth twice * B-COMPLEX WITH VITAMIN C TABL* Take 1 tablet by mouth once d * CHOLECALCIFEROL (VITAMIN D3) * Take 1 tablet by mouth once d * LACTOBACILLUS RHAMNOSUS GG-LA* Take 1 capsule by mouth daily * LORAZEPAM 0.5 MG TABLET Take by mouth at bedtime as n* TRIAMCINOLONE ACETONIDE 55 MC* Use 2 Sprays in each nostril * AZELASTINE 137 MCG (0.1 %) NA* Use 2 Sprays in each nostril * GUAIFENESIN ER 600 MG TABLET,* Take 2 tablets by mouth twice * KETOTIFEN 0.025 % (0.035 %) E* One drop to each eye 2 to 3 t * RIZATRIPTAN 10 MG TABLET Take 1 tablet by mouth as nee* TOPIRAMATE 50 MG TABLET Take 50 mg by mouth twice mara* ZIPRASIDONE 40 MG CAPSULE Take 40 mg by mouth daily wit* VITAMIN B COMPLEX TABLET Take 1 tablet by mouth once d* Problem List As Of Date 05/19/2020 Noted Resolved ASTHMA UNSPECIFIED [J45.909] 11/02/2014 Allergic rhinitis due to fungal spores [J30.89] More... Obesity, Class III, BMI 40-49.9 (morbid obesity*11/21/2006 Obstructive sleep apnea [G47.33] 08/19/2007 Toxic effect of venom [T63.91XA] 09/23/2007 11/28/2018 Moderate persistent asthma [J45.40] 11/02/2014 Allergic rhinitis due to dust mite [J30.89] 01/24/2018 Allergic rhinitis due to cat hair [J30.81] 01/24/2018 Seasonal allergic rhinitis due to pollen [J30.1]01/24/2018 Right ureteral calculus [N20.1] 02/15/2018 More... Nonspecific paroxysmal spell [R40.4] 08/14/2018 09/24/2018 Psychogenic nonepileptic seizure [F44.5] 08/14/2018 Transient alteration of awareness [R40.4] 08/14/2018 018 Concern about neurological disease without diag*08/14/2018 1 11/24/2017 Psychosocial stressors [Z65.8] 08/14/2018 Episodic mood disorder (HCC) [F39] 08/14/2018 Convulsions (HCC) [R56.9] 09/23/2018 Other group home (current) drug therapy [Z79.899]08/22/2018 Severe manic bipolar I disorder with psychotic *09/24/2018 Toxic effect of venom [T63.91XA] 11/28/2018 Myalgia [M79.10] 01/29/2019 Chronic pain syndrome [G89.4] 01/29/2019 Concentration deficit [R41.840] 01/29/2019 Screening for breast cancer [Z12.39] 01/29/2019 Bipolar disorder, current episode mixed, modera*04/08/2019 Intractable migraine without status migrainosus*04/08/2019 Intertrigo [L30.4] 04/08/2019 Dyslipidemia [E78.5] 01/14/2020 IFG (impaired fasting glucose) [R73.01] 01/14/2020 Disposition: Return in about 1 week (around 05/26/2020). Follow-up and Disposition History Recorded Encounter Status:Closed by MD NINFA MCDONALD on 05/21/20 progress on 2020-04 PROGRESS HNO ID: [id number] Normal 05-17-2020 [facility] Author: Ninfa Mcdonald Mckenna ([id number]) Service: ? Author Type: Physician Type: Progress Notes Filed: 05/20/2020 2:42 PM Note Text: Bhavesh Beaulieu 1975 REFERRING PHYSICIAN: Self CHIEF COMPLAINT: No chief complaint on file. HPI: The patient is a 44 year old female presents with abnor mal left breast radiographs Denies palpable breast masses. Denies nipple discharge.. She is s/p right stereotactic breast biopsy 05/26/19 She had a previous US guided right breast needle core biopsy - stromal fibrosis by pathology but non concordance by follow up mamm ograms. Right breast, stereotactic needle core biopsy: 05/26/19 Fat necrosis with associated benign histiocytic reaction and mild chronic inflammation and fibrosis. No evidence of malignancy. RESULTS: ANTIBODY / CLONE RESULT Block 1 GATA3 (L50-823) negative AE1-3 (AE1/AE3/PCK26) negative CK8 (94idxnT20) negative Vimentin (V9) positive Macro (HAM-56) positive CK5-6 (D5 AND 1684) negative P53 (DO-7) Negative 05/26/19 Right breast, stereotactic needle core biopsy: Fat necrosis with associated benign histiocytic reaction and mild chronic infl ammation and fibrosis. No evidence of malignancy. Now presents with abnormal left breast radiographs. Mammograms/US left breast 05/11/2020 There is a 6 mm irregular mass in the left breast at 11 o'cl ock middle depth. No other significant masses or calcifications are seen in th e breast. There is 0.6 cm x 0.3 cm x 0.5 cm oval mass with an indistin ct margin in the left breast at 11 o'clock middle depth 6 cm from the nip ple. This oval mass is hypoechoic with internal echoes. This correlate s with mammography findings. IMPRESSION: SUSPICIOUS FINDING - BIOPSY SHOULD BE CONSIDERED The 0.6 cm x 0.3 cm x 0.5 cm oval mass in the left breast is suspicious of malignancy. An ultrasound guided biopsy is recommended PAST MEDICAL HISTORY Diagnosis Date - Allergic rhinitis, cause unspecified Allergy, airborne subst - Anxiety and depression - Bee allergy status - Depression - Environmental allergies - GERD (gastroesophageal reflux disease) - Hypercholesteremia 11/2014 - Impaired fasting glucose - Migraines - Morbid obesity (HCC) - Obstructive sleep apnea DX 2006, not on CPAP since 06/2018 - Unspecified asthma(493.90) weather, allergy and exercise triggers - Vitamin D deficiency PAST SURGICAL HISTORY Procedure Laterality Date - DELIVERY ONLY 2001 , low cervical - LIGATE FALLOPIAN TUBE 2001 Tubal ligation - LITHOTRIPSY [facility] Right 02/18/2018 - STEREOTACTIC LOCALIZATION BREAST BIOPSY Right 05/26/2019 Current Outpatient Medications Medication Sig - diazePAM (VALIUM) 5 mg tablet Take 1 tablet by mouth avail able for use prior to procedure for 1 day. - PRODIGEN 31 billion cell cap Take 1 capsule by mouth daily at bedtime. - albuterol HFA (VENTOLIN HFA) 90 mcg/actuation inhaler Inha le 2 Puffs as instructed every 4 hours as needed. - amitriptyline (ELAVIL) 50 mg tablet Take 0.5 tablets by mo uth daily at bedtime. - EPINEPHrine (EPIPEN) 0.3 mg/0.3 mL auto-injector Inject 0. 3 mL intramuscularly as needed (for allergic reaction.Seek emerge nt medical care immediately after use.Disp:one 2-pack w/education trainer). - cetirizine (ZYRTEC) 10 mg tablet Take 1 tablet by mouth on ce daily as needed. - gabapentin (NEURONTIN) 100 mg capsule Take 1 capsule by mo uth three times daily for 98 days. - OYSCO-500 500 mg calcium (1,250 mg) tablet Take 1 tablet b y mouth twice daily with meals. - Magnesium Oxide 500 mg tab Take 1 tablet by mouth once mara ly. - nystatin (MYCOSTATIN) powder Apply 1 application to affect ed area four times daily. As needed for yeast rash - fluticasone-salmeterol HFA (ADVAIR HFA) 115-21 mcg/actuati on inhaler Inhale 2 Puffs as instructed twice daily. Use with spacer. R inse mouth out after use. - meloxicam (MOBIC) 15 mg tablet Take 0.5-1 tablets by mouth once daily. As needed for pain, Take with food. - [place] Pijsxe-Jmbzga-Ueki Oxide (GOLD SOLANO MEDICATED BABY) 7 9-4-15 % powd Apply 1 application to affected area twice daily as needed ( intertrigo). (Patient taking differently: Apply 1 application to affected area twice daily as needed (intertrigo). Not medicated - cyclobenzaprine (FLEXERIL) 10 mg tablet Take 1 tablet by m outh three times daily as needed for Muscle Spasm. - albuterol (PROVENTIL) 2.5 mg /3 mL (0.083 %) nebulizer estevan ution Use 3 mL via nebulizer every 4 hours as needed for Wheezing/Shortness of Breath. 1 vial contains 3 ml. - amphetamine-dextroamphetamine XR (ADDERALL XR) 20 mg 24 hr capsule Take 20 mg by mouth once daily. - famotidine (PEPCID) 20 mg tablet Take 1 tablet by mouth tw ice daily. - utmjljv-pnkihitpr-tjcatpm D3 (CALCIUM 500+D) 500 mg(1,250m g) -200 unit per tablet Take 1 tablet by mouth twice daily with meals. - B-complex with vitamin C (ALLBEE WITH C) tablet Take 1 tab let by mouth once daily. - cholecalciferol (VITAMIN D3) 2,000 unit tablet Take 1 tabl et by mouth once daily. - L. rhamnosus-L. reuteri (REPHRESH PRO-B) 2.5 billion cell cap Take 1 capsule by mouth daily at bedtime. - LORazepam (ATIVAN) 0.5 mg tab Take by mouth at bedtime as needed. - triamcinolone acetonide (NASACORT AQ) 55 mcg nasal inhaler Use 2 Sprays in each nostril every morning. - azelastine (ASTELIN,ASTEPRO) 0.1% nasal spray Use 2 Sprays in each nostril daily at bedtime. - guaiFENesin (MUCINEX) 600 mg 12 hr tablet Take 2 tablets b y mouth twice daily as needed. - ketotifen fumarate (ZADITOR) 0.025 % (0.035 %) ophthalmic solution One drop to each eye 2 to 3 times a day as needed. - rizatriptan (MAXALT) 10 mg tablet Take 1 tablet by mouth a s needed for Migraine Headache (see administration instructions). May rep eat in 2 hours if needed - topiramate (TOPAMAX) 50 mg tablet Take 50 mg by mouth twic e daily. - ziprasidone (GEODON) 40 mg capsule Take 40 mg by mouth mara ly with dinner. - vitamin b complex (B COMPLETE) tab Take 1 tablet by mouth once daily. ALLERGIES: Beta Blockers [Beta-Blockers (Beta-Adrenergic Blo cking Agts)]; Kerrie Inhibitors; Environmental Allergies [Other]; Lexapro [Es citalopram Oxalate]; Prozac [Fluoxetine Hcl]; Trintellix [Vortioxetine] ; Venom-Wasp; Venom-Yellow Hornet; Venom-Yellow Jacket Protein; Viibryd [V ilazodone]; Wellbutrin [Bupropion Hcl]; Zoloft [Sertraline Hcl] PERSONAL HISTORY: Social History Tobacco Use - Smoking status: Never Smoker - Smokeless tobacco: Never Used Substance Use Topics - Alcohol use: No Frequency: Monthly or less Drinks per session: 1 or 2 Binge frequency: Never - Drug use: No FAMILY HISTORY Problem Relation Age of Onset - Asthma Mother - Thyroid Mother - COPD Mother - other (depression) Mother - other (depression) Sister - Asthma Brother - Depression Brother - Diabetes Father - Hypertension Father - Diabetes Maternal Grandmother - Thyroid Maternal Grandmother - Cancer Maternal Grandfather unknown - Kidney Disease Paternal Grandmother - Cancer Paternal Grandfather - Asthma Daughter - Depression Daughter - Depression Daughter - other (ADD) Daughter REVIEW OF SYSTEMS: General - denies fevers, denies weight loss, denies anorexia , feels tired all the time Cardiovascular - denies chest pain, denies history of MT Pulmonary - has shortness of breath with exertion, denies co ughing up blood, denies TOB use Gastrointestinal - denies abdominal pain, denies hematemesis Neurological - has migraine headaches, denies seizures, shankar es history of CVA Genitourinary - has had kidney stones, denies burning with u rination, denies blood in urine Hematological - denies spontaneous/prolonged bleeding Skin - denies nonhealing skin wounds Musculoskeletal - has knee pain Endocrine - denies diabetes Psychological ? has anxiety, denies hallucinations Obstetrical: menarche onset is age 12, , first at age 21, BCP starting at age 21 for about 1 y, denies breast feeding, denies hormones use at present, has had no menstrual periods for gr eater than 15 y ? PHYSICAL EXAMINATION: General: The patient is 44 year old female, well nourished, well hydrated in no acute distress. The patient is oriented to time, place , and person. VITALS: Pulse 112, temperature 36.8 ?C (98.3 ?F), weight 111 .6 kg (246 lb), SpO2 100 %. Body mass index is 44.99 kg/m?. Head ? Normocephalic. EOM intact with sclera clear and no ic terus noted. Mouth with mucus membranes moist. Neck - supple with no jugular venous distention noted. Trach ea is midline. No carotid bruits noted. No thyroid enlargement or thyroid n odules detected. No masses noted. Chest/breast ? no asymmetry of breasts noted, large ptotic b reasts, no suspicious skin lesions noted, no nipple discharge and both nipples everted, no breast masses noted Lungs ? clear to auscultation. Normal breath sounds. No rales/rhonchi/wheezing noted. No labored breathing noted, sharma ch as retractions. No cough heard. Heart ? normal S1 and S2 auscultated. No rubs/clicks/murmurs noted. Regular rate. Abdomen ? soft and benign. Normal bowel sounds No abdominal bruits noted. Difficult to determine if any masses or organomegaly due to body habitus. Extremities ? no calf tenderness noted. No pitting edema not ed. Skin ? normal skin integrity. Lymph ? no cervical adenopathy detected, no supraclavicular adenopathy detected, no axillary adenopathy detected Neurological ? gait normal, no focal deficits noted Psych ? calm and appropriate RADIOLOGIC STUDIES: As Noted Assessment IMPRESSION: abnormal left breast radiographs PLAN: I have discussed the above with the patient. I have offered US guided left needle core breast biopsy. She understands that the US lesion may not correlate with th e mammographic lesion as in her last breast biopsy and that she may also re quire a stereotactic breast biopsy. I have explained the procedure to the patient. I have counseled the patient as to the risks of the procedur e, including but not limited to: infection, bleeding, injury to any blood vessels/nerves, sca r tissue, wound infections, complications of anesthesia, etc. ? the patient understands. She wishes to santacruz ve ant-anxiety medication prior to procedure. The patient wishes to proceed. I have answered all questions to the patient?s satisfaction and the patient has no further questions. . Diagnoses: (R92.8) Abnormal ultrasound of breast (primary en counter diagnosis) (R92.8) Abnormal mammogram (N64.81) Breast ptosis (F41.9) Anxiety (E66.01) Morbid obesity (HCC) Return to Clinic: The patient is instructed to follow-up wit h me after the procedure. I have confirmed and edited as necessary, the PFSH and ROS o btained by others. Consultation requested by for an opinion regardi ng patient's presentation. My final recommendations will be communicated back to the requesting physician by way of shared Medical record or brooke er to requesting physician via US mail. MD talib Joeov on 2020-05-17 CNOV Office Visit (SWS) Normal 05-17-[address] [place] [address] BHAVESH Garza ([id number]) 1975 [facility] Date Time Provider Department ([id number]) 05/17/20 1:20 PM NINFA MCDONALD During your visit today, we recorded the following informati on about you: Temperature Pulse Weight 98.3 degrees 112/minute 111.6 kg Ninfa Mcdonald MD 05/17/2020 1:59 PM Signed Take 1 tablet about one hour prior to procedure, if th at is not working well for you, take the second tablet Ninfa Mcdonald MD 05/20/2020 2:42 PM Signed Bhavesh Beaulieu 1975 REFERRING PHYSICIAN: Self CHIEF COMPLAINT: No chief complaint on file. HPI: The patient is a 44 year old female presents with abn ormal left breast radiographs Denies palpable breast masses. Denies nipple discharge.. She is s/p right stereotactic breast biopsy 05/26/19 She had a previous US guided right breast needle core biopsy - stromal fibrosis by pathology but non concordance by follow up mamm ograms. Right breast, stereotactic needle core biopsy: 05/26/19 Fat necrosis with associated benign histiocytic reaction and mild chronic inflammation and fibrosis. No evidence of malignancy. RESULTS: ANTIBODY / CLONE RESULT Block 1 GATA3 (L50-823) negative AE1-3 (AE1/AE3/PCK26) negative CK8 ([id number]) negative Vimentin (V9) positive Macro (HAM-56) positive CK5-6 (D5 AND 1684) negative P53 (DO-7) Negative 7/8/19 Right breast, stereotactic needle core biopsy: Fat ne crosis with associated benign histiocytic reaction and mild chronic inflammation an d fibrosis. No evidence of malignancy. Now presents with abnormal left breast radiographs. Mammograms/US left breast 05/11/2020 There is a 6 mm irregular mass in the left breast at 11 o'cl ock middle depth. No other significant masses or calcifications are seen in th e breast. There is 0.6 cm x 0.3 cm x 0.5 cm oval mass with an indistin ct margin in the left breast at 11 o'clock middle depth 6 cm from the nip ple. This oval mass is hypoechoic with internal echoes. This correlate s with mammography findings. IMPRESSION: SUSPICIOUS FINDING - BIOPSY SHOULD BE CONSIDERED The 0.6 cm x 0.3 cm x 0.5 cm oval mass in the left breast is suspicious of malignancy. An ultrasound guided biopsy is recommended PAST MEDICAL HISTORY Diagnosis Date - Allergic rhinitis, cause unspecified Allergy, airborne subst - Anxiety and depression - Bee allergy status - Depression - Environmental allergies - GERD (gastroesophageal reflux disease) - Hypercholesteremia 11/2014 - Impaired fasting glucose - Migraines - Morbid obesity (HCC) - Obstructive sleep apnea DX 2006, not on CPAP since 06/2018 - Unspecified asthma(493.90) weather, allergy and exercise triggers - Vitamin D deficiency PAST SURGICAL HISTORY Procedure Laterality Date - DELIVERY ONLY 2001 , low cervical - LIGATE FALLOPIAN TUBE 2001 Tubal ligation - LITHOTRIPSY [facility] Right 02/18/2018 - STEREOTACTIC LOCALIZATION BREAST BIOPSY Right 05/26/2019 Current Outpatient Medications Medication Sig - diazePAM (VALIUM) 5 mg tablet Take 1 t ablet by mouth available for use prior to procedure for 1 day. - PRODIGEN 31 billion cell cap Take 1 capsule by mouth daily at bedtime. - albuterol HFA (VENTOLIN HFA) 90 mcg/actuation inhaler Inha le 2 Puffs as instructed every 4 hours as needed. - amitriptyline (ELAVIL) 50 mg tablet Take 0.5 tablets by mo ut daily at bedtime. - EPINEPHrine (EPIPEN) 0.3 mg/0.3 mL auto-injector Inject 0. 3 mL intramuscularly as needed (for allergic reaction.Seek [facility] care immediately after use.Disp:one 2-pack w/education trainer). - cetirizine (ZYRTEC) 10 mg tablet Take 1 tablet by mouth once daily as needed. - gabapentin (NEURONTIN) 100 mg capsule Take 1 capsule by mouth three times daily for 98 days. - OYSCO-500 500 mg calcium ( 1,250 mg) tablet Take 1 tablet by mouth twice daily with meals. - Magnesium Oxide 500 mg tab Take 1 tablet by mouth once mara ly. - nystatin (MYCOSTATIN) powder Apply 1 a pplication to affected area four times daily. As needed for yeast rash - fluticasone-salmeterol HFA (ADVAIR HFA) 115-21 mcg/actuation inhaler Inhale 2 Puffs as instructed twice daily. Use with spacer. Rins e mouth out after use. - meloxicam (MOBIC) 15 mg tablet Take 0.5-1 tablets by marianne th once daily. As needed for pain, Take with food. - [place] Llzztl-Yjeini-Maij Ox yanna (GOLD SOLANO MEDICATED BABY) 79-4-15 % powd Apply 1 application to affected area twice daily as needed (inte rtrigo). (Patient taking differently: Apply 1 application to affected area twice daily as needed (intertrigo). Not medicated - cyclobenzaprine (FLEXERIL) 10 mg tablet Take 1 table t by mouth three times daily as needed for Muscle Spasm. - albuterol (PROVENTIL) 2.5 mg /3 mL (0. 083 %) nebulizer solution Use 3 mL via nebulizer every 4 hours as needed for Wheezing/Shortness of Breath. 1 vial contains 3 ml. - amphetamine-dextroamphetam ine XR (ADDERALL XR) 20 mg 24 hr capsule Take 20 mg by mouth once daily. - famotidine (PEPCID) 20 mg tablet Take 1 tablet by mouth tw ice daily. - lezobpe-acxifidwy-qgpzegu D3 (CALCIUM 500+D) 500 mg( 1,250mg) -200 unit per tablet Take 1 tablet by mouth twice daily with meals. - B-complex with vitamin C (ALLBEE WITH C) table t Take 1 tablet by mouth once daily. - cholecalciferol (VITAMIN D3) 2,000 unit tablet Take 1 tablet by mouth once daily. - L. rhamnosus-L. reuteri (REPHRESH PRO- B) 2.5 billion cell cap Take 1 capsule by mouth daily at bedtime. - LORazepam (ATIVAN) 0.5 mg tab Take by mouth at bedtime as needed. - triamcinolone acetonide (NASACORT AQ) 55 mcg nasal i nhaler Use 2 Sprays in each nostril every morning. - azelastine (ASTELIN,ASTEPRO) 0.1% nasal spray Use 2 Sprays in each nostril daily at bedtime. - guaiFENesin (MUCINEX) 600 mg 12 hr tablet Take 2 tablets by mouth twice daily as needed. - ketotifen fumarate (ZADITOR) 0.025 % (0.035 %) ophthalmic solution One drop to each eye 2 to 3 times a day as needed. - rizatriptan (MAXALT) 10 mg tablet Take 1 tablet by mouth a s needed for Migraine Headache (see administration instructio ns). May repeat in 2 hours if needed - topiramate (TOPAMAX) 50 mg tablet Take 50 mg by mouth twic e daily. - ziprasidone (GEODON) 40 mg capsule Take 40 mg by mouth d aily with dinner. - vitamin b complex (B COMPLETE) tab Take 1 tablet by mouth once daily. ALLERGIES: Beta Blockers [Beta-Blockers (Beta-Ad renergic Blocking Agts)]; Kerrie Inhibitors; Environmental Allergies [Other]; Lexapro [ Escitalopram Oxalate]; Prozac [Fluoxetine Hcl]; Trintellix [Vortioxetine]; Ve nom-Wasp; Venom-Yellow Hornet; Venom-Yellow Jacket Protein; Viibryd [Vilazodone]; W ellbutrin [Bupropion Hcl]; Zoloft [Sertraline Hcl] PERSONAL HISTORY: Social History Tobacco Use - Smoking status: Never Smoker - Smokeless tobacco: Never Used Substance Use Topics - Alcohol use: No Frequency: Monthly or less Drinks per session: 1 or 2 Binge frequency: Never - Drug use: No FAMILY HISTORY Problem Relation Age of Onset - Asthma Mother - Thyroid Mother - COPD Mother - other (depression) Mother - other (depression) Sister - Asthma Brother - Depression Brother - Diabetes Father - Hypertension Father - Diabetes Maternal Grandmother - Thyroid Maternal Grandmother - Cancer Maternal Grandfather unknown - Kidney Disease Paternal Grandmother - Cancer Paternal Grandfather - Asthma Daughter - Depression Daughter - Depression Daughter - other (ADD) Daughter REVIEW OF SYSTEMS: General - denies fevers, denies weight loss, den ies anorexia, feels tired all the time Cardiovascular - denies chest pain, denies history of MT Pulmonary - has shortness of breath with exertion, den ies coughing up blood, denies TOB use Gastrointestinal - denies abdominal pain, denies hematemesis Neurological - has migraine headaches, denies se izures, denies history of CVA Genitourinary - has had kidney stones, denies burning with urination, denies blood in urine Hematological - denies spontaneous/prolonged bleeding Skin - denies nonhealing skin wounds Musculoskeletal - has knee pain Endocrine - denies diabetes Psychological ? has anxiety, denies hallucinations Obstetrical: menarche onset is age 12, , first pregna nt at age 21, BCP starting at age 21 for about 1 y, denies breast feeding, denies hormones use at present, has had no menstrual periods for greater than 15 y ? PHYSICAL EXAMINATION: General: The patient is 44 year old female, well tony shed, well hydrated in no acute distress. The patient is oriented to time, place, a nd person. VITALS: Pulse 112, temperature 36.8 ?C (98.3 ?F), weight 1 11.6 kg (246 lb), SpO2 100 %. Body mass index is 44.99 kg/m?. Head ? Normocephalic. EOM intact with sc travis clear and no icterus noted. Mouth with mucus membranes moist. Neck - supple with no jugular venous distention noted. Trachea is midline. No carotid bruits noted. No thyroid enlargement or thyroi d nodules detected. No masses noted. Chest/breast ? no asymmetry of breasts noted, large ptotic b reasts, no suspicious skin lesions note d, no nipple discharge and both nipples everted, no breast masses noted Lungs ? clear to auscultation. Normal br eath sounds. No rales/rhonchi/wheezing noted. No labored breathing noted, such as retractions. No c ough heard. Heart ? normal S1 and S2 auscultated. No rubs/clicks/murmu rs noted. Regular rate. Abdomen ? soft and benign. Normal bowel sounds No abdominal bruits noted. Difficult to determine if any masses or organomegaly due to body habitus. Extremities ? no calf tenderness noted. No pitting edema not ed. Skin ? normal skin integrity. Lymph ? no cervical adenopathy detected, no supraclavicular adenopathy detected, no axillary adenopathy detected Neurological ? gait normal, no focal deficits noted Psych ? calm and appropriate RADIOLOGIC STUDIES: As Noted Assessment IMPRESSION: abnormal left breast radiographs PLAN: I have discussed the above with the patient. I have offered US guided left needle core breast biopsy. She understands that the US lesion may not correlate with th e mammographic lesion as in her last breast biopsy and that she may also re quire a stereotactic breast biopsy. I have explained the procedure to the patient. I have counseled the patient as to the risks of the pr ocedure, including but not limited to: infection, bleeding, injury to any blood vessels/nerves, s car tissue, wound infections, complications of anesthesia, etc. ? the patient understands. She wishes to santacruz ve ant-anxiety medication prior to procedure. The patient wishes to proceed. I have answered all question s to the patient?s satisfaction and the patient has no further questions. . Diagnoses: (R92.8) Abnormal ultrasound o f breast (primary encounter diagnosis) (R92.8) Abnormal mammogram (N64.81) Breast ptosis (F41.9) Anxiety (E66.01) Morbid obesity (HCC) Return to Clinic: The patient is instructed to follow-up wit h me after the procedure. I have confirmed and edited as necessary , the PFSH and ROS obtained by others. Consultation requested by for an opinion regardi ng patient's presentation. My final recommendations will be communicated back to the requesting physician by way of shared Medical record o r letter to requesting physician via US mail. Ninfa Mcdonald MD Referring Provider: SELF [[id number]] Allergies As of Date: 05/17/2020 Noted Allergy Reaction BETA BLOCKERS (BETA-BLOCKERS (BET*2013 15 - Contraindication-Medical Sharma* Comments: Avoid use of beta blockers and KERRIE inhibitors sinc e patient is on venom immunotherapy KERRIE INHIBITORS 11/02/2014 15 - Contraindication-Medical Sharma* Comments: Avoid use of beta blockers and KERRIE inhibitors sinc e patient is on venom immunotherapy Environmental Allergies [Other] 12/25/2006 Comments: Grasses, molds, dust mites, cats, cockroaches LEXAPRO (ESCITALOPRAM OXALATE) 10/30/2018 5 - Intolerance Comments: altered mood PROZAC (FLUOXETINE HCL) 10/30/2018 5 - Intolerance Comments: altered mood TRINTELLIX (VORTIOXETINE) 01/08/2020 1 - Mental Status Carbajal e VENOM-WASP 09/26/2007 VENOM-YELLOW HORNET 09/26/2007 16 - Unknown Comments: Yellow and white faced hornet VENOM-YELLOW JACKET PROTEIN 09/26/2007 VIIBRYD (VILAZODONE) 05/17/2020 1 - Mental Status Change Comments: agitated WELLBUTRIN (BUPROPION HCL) 05/08/2019 2 - Rash Comments: Agitation ZOLOFT (SERTRALINE HCL) 10/30/2018 5 - Intolerance Comments: altered mood Date Reviewed: 05/17/2020 Reviewed by: Kuldeep Parker LPN - Fully Assessed Primary Visit Diagnosis:Abnormal ultrasound of breast [R92.8 ] Other Visit Diagnoses:Abnormal mammogram [R92.8] Breast ptosis [N64.81] Anxiety [F41.9] Morbid obesity (HCC) [E66.01] Order(s):[] diazePAM (VALIUM) 5 mg tabletTake 1 table t by mouth available for use prior to procedure for 1 day.Disp: 2 table tRfl: 0 [facility] [[id number]] Order #: [id number] FUTURE Prescriptions as of 05/17/2020 Sig: DIAZEPAM 5 MG TABLET Take 1 tablet by mouth availa* PRODIGEN 31 BILLION CELL CAPS* Take 1 capsule by mouth daily * ALBUTEROL SULFATE HFA 90 MCG/* Inhale 2 Puffs as instructed * AMITRIPTYLINE 50 MG TABLET Take 0.5 tablets by mouth mara* EPINEPHRINE 0.3 MG/0.3 ML INJ* Inject 0.3 mL intramuscularly * CETIRIZINE 10 MG TABLET Take 1 tablet by mouth once d* GABAPENTIN 100 MG CAPSULE Take 1 capsule by mouth three* OYSCO-500 500 MG CALCIUM (1,* Take 1 tablet by mouth twice * MAGNESIUM OXIDE 500 MG TABLET Take 1 tablet by mouth once d* NYSTATIN 100,000 UNIT/GRAM TO* Apply 1 application to affect * FLUTICASONE PROPIONATE 115 MC* Inhale 2 Puffs as instructed * MELOXICAM 15 MG TABLET Take 0.5-1 tablets by mouth o* GOLD SOLANO MEDICATED BABY 79 %* Apply 1 application to affect * Patient taking differently: Apply 1 application to affect* CYCLOBENZAPRINE 10 MG TABLET Take 1 tablet by mouth three * ALBUTEROL SULFATE 2.5 MG/3 ML* Use 3 mL via nebulizer every * DEXTROAMPHETAMINE-AMPHETAMINE* Take 20 mg by mouth once ngozi * FAMOTIDINE 20 MG TABLET Take 1 tablet by mouth twice * CALCIUM CARBONATE 500 MG (1,2* Take 1 tablet by mouth twice * B-COMPLEX WITH VITAMIN C TABL* Take 1 tablet by mouth once d * CHOLECALCIFEROL (VITAMIN D3) * Take 1 tablet by mouth once d * LACTOBACILLUS RHAMNOSUS GG-LA* Take 1 capsule by mouth daily * LORAZEPAM 0.5 MG TABLET Take by mouth at bedtime as n* TRIAMCINOLONE ACETONIDE 55 MC* Use 2 Sprays in each nostril * AZELASTINE 137 MCG (0.1 %) NA* Use 2 Sprays in each nostril * GUAIFENESIN ER 600 MG TABLET,* Take 2 tablets by mouth twice * KETOTIFEN 0.025 % (0.035 %) E* One drop to each eye 2 to 3 t * RIZATRIPTAN 10 MG TABLET Take 1 tablet by mouth as nee* TOPIRAMATE 50 MG TABLET Take 50 mg by mouth twice mara* ZIPRASIDONE 40 MG CAPSULE Take 40 mg by mouth daily wit* VITAMIN B COMPLEX TABLET Take 1 tablet by mouth once d* Problem List As Of Date 05/17/2020 Noted Resolved ASTHMA UNSPECIFIED [J45.909] 11/02/2014 Allergic rhinitis due to fungal spores [J30.89] More... Obesity, Class III, BMI 40-49.9 (morbid obesity*11/21/2006 Obstructive sleep apnea [G47.33] 08/19/2007 Toxic effect of venom [T63.91XA] 09/23/2007 11/28/2018 Moderate persistent asthma [J45.40] 11/02/2014 Allergic rhinitis due to dust mite [J30.89] 01/24/2018 Allergic rhinitis due to cat hair [J30.81] 01/24/2018 Seasonal allergic rhinitis due to pollen [J30.1]01/24/2018 Right ureteral calculus [N20.1] 02/15/2018 More... Nonspecific paroxysmal spell [R40.4] 08/14/2018 09/24/2018 Psychogenic nonepileptic seizure [F44.5] 08/14/2018 Transient alteration of awareness [R40.4] 08/14/2018 018 Concern about neurological disease without diag*08/14/2018 1 11/24/2017 Psychosocial stressors [Z65.8] 08/14/2018 Episodic mood disorder (HCC) [F39] 08/14/2018 Convulsions (HCC) [R56.9] 09/23/2018 Other group home (current) drug therapy [Z79.899]08/22/2018 Severe manic bipolar I disorder with psychotic *09/24/2018 Toxic effect of venom [T63.91XA] 11/28/2018 Myalgia [M79.10] 01/29/2019 Chronic pain syndrome [G89.4] 01/29/2019 Concentration deficit [R41.840] 01/29/2019 Screening for breast cancer [Z12.39] 01/29/2019 Bipolar disorder, current episode mixed, modera*04/08/2019 Intractable migraine without status migrainosus*04/08/2019 Intertrigo [L30.4] 04/08/2019 Dyslipidemia [E78.5] 01/14/2020 IFG (impaired fasting glucose) [R73.01] 01/14/2020 Other instructions from your clinician: Take 1 tablet about one hour prior to procedure, if that is not working well for you, take the second tablet Prescriptions ordered this encounter Disp Refills Start End DIAZEPAM 5 MG TABLET 2 ta* 0 05/17/2020 05/18/2020 Route: ORAL Sig: Take 1 tablet by mouth available for use prior to pro cedure for 1 day. Disposition: Return in about 1 week (around 05/24/2020). Follow-up and Disposition History Recorded Letter Text Encounter Status:Closed by MD NINFA MCDONALD on 05/20/20 progress on 2020-04 PROGRESS HNO ID: [id number] Normal 05-11-2020 [facility] Author: Derrell Aguilera (Tech) ([id number]) Service: ? Author Type: Msws Type: Progress Notes Filed: 05/11/2020 12:16 PM Note Text: Radiology Service Progress Note PATIENT NAME: Bhavesh Beaulieu DATE OF SERVICE: May 11, 2020 TIME: 12:16 PM PATIENT IDENTITY VERIFICATION COMPLETED USING TWO (2) IDENTI FIERS: Name and Date of confirmed by patient verbally. FALL SCREENING: Has the patient had 2 falls in the last year or 1 fall with injury or currently using an Ambulatory Assistive Devic e (Walker, Cane, Wheelchair, Crutches, etc.)? No PATIENT GENDER DATA: Female. status: : No status: NO. PATIENT RELEVANT IMPLANT DATA REVIEWED: Not Applicable RADIOLOGY DEPARTMENT: Ultrasound PERIPHERAL IV DATA: Not applicable SIGNED BY: Derrell Aguilera May 11, 2020 12:16 PM PROGRESS HNO ID: [id number] Normal 05-11-2020 [facility] Author: Derrell Ren (Tech) Mckenna ([id number]) Service: ? Author Type: Msws Type: Progress Notes Filed: 05/11/2020 11:07 AM Note Text: Radiology Service Progress Note PATIENT NAME: Bhavesh Beaulieu DATE OF SERVICE: May 11, 2020 TIME: 11:06 AM PATIENT IDENTITY VERIFICATION COMPLETED USING TWO (2) IDENTI FIERS: Name and Date of confirmed by patient verbally. FALL SCREENING: Has the patient had 2 falls in the last year or 1 fall with injury or currently using an Ambulatory Assistive Devic e (Walker, Cane, Wheelchair, Crutches, etc.)? No PATIENT GENDER DATA: Female. status: : No status: NO. PATIENT RELEVANT IMPLANT DATA REVIEWED: Not Applicable RADIOLOGY DEPARTMENT: Mammography PERIPHERAL IV DATA: Not applicable SIGNED BY: Derrell Ren May 11, 2020 11:06 AM [facility] breast ltd lt on 2020-05-11 [facility] US BREAST * * *Final Report* * * Normal [facility] LT DATE OF EXAM: May 11 2020 12:02PM Mckenna ([id number]) WRU 0593 - [facility] [employer] BREAST LTD LT / PROCEDURE REASON: Abnormal mammogram * * * * Physician Interpretation * * * * #[id number] - [facility] DIAGNOSTIC LT #[id number] - [facility] [employer] BREAST LTD LT UNILATERAL LEFT DIGITAL DIAGNOSTIC MAMMOGRAM WITH CAD: 2019 HISTORY: Callback left // Abnormal Mammogram Abnormal Mammog akash. RESULT: TECHNIQUE: The study was acquired using full field digital t echnology and interpreted from soft copy. Current study was also evaluated with a Computer Aided Detec tion (CAD). Comparison is made to exams dated: 04/19/2020 mammogram, 2019 mammogram, 05/02/2019 mammogram, 04/22/2019 mammogram - [facility], 04/07/2019 mammogram, and 03/13/2018 mammogram - [facility]. There are scattered fibroglandular elements i n left breast. There is a 6 mm irregular mass in the left breast at 11 o'cl ock middle depth. No other significant masses or calcifications are seen in th e breast. IMPRESSION: SUSPICIOUS FINDING - BIOPSY SHOULD BE CONSIDERED The 6 mm irregular mass in the left breast is suspicious of malignancy. An ultrasound guided biopsy is recommended. I spoke with the patient to discuss biopsy. She states that she has no interest in biops y at this time despite my reccomendation. LIMITED ULTRASOUND OF LEFT BREAST AND AXILLA: 05/11/2020 RESULT: Comparison is made to exams dated: 04/19/2020 mammogram, 2019 mammogram, 05/02/2019 mammogram, 04/22/2019 mammogram - [facility], 04/07/2019 mammogram, and 03/13/2018 mammogram - [facility]. Color flow and real-time ultrasound of the left breast 11 o' clock, and axilla regions were performed. Hill scale images of the real -time examination were reviewed. There is 0.6 cm x 0.3 cm x 0.5 cm oval mass with an indistin ct margin in the left breast at 11 o'clock middle depth 6 cm from the nip ple. This oval mass is hypoechoic with internal echoes. This correlate s with mammography findings. IMPRESSION: SUSPICIOUS FINDING - BIOPSY SHOULD BE CONSIDERED The 0.6 cm x 0.3 cm x 0.5 cm oval mass in the left breast is suspicious of malignancy. An ultrasound guided biopsy is recommended. I spoke with the patient to discuss biopsy. She states that she has no in terest in biopsy at this time despite my reccomendation. Celestino youngblood/tierney:05/11/2020 13:10:21 Multiple national specialty organizations have released ajit st cancer screening guidelines for women at average risk for developin g breast cancer - guidelines that are based on both evidence and opin ion, yet differ on when to start and how often to screen for breast c ancer. With representation from Breast Imaging, Internal Medicine, Women 's Health, Family Medicine, and Medical/Surgical Oncology, the [facility] has carefully reviewed the data and reached the following consen patricia: 1) All women should engage in shared decision-making with eir providers to decide when to start and how often to screen; 2) All women should have the opportunity to start screening mammography at age 40; 3) For women ages 45-55, we recommend annual screening mammo grams; 4) For women ages 55 and over, we support both the transitio n from an annual to a biennial interval if this aligns more with patie nt's values and preferences, or continuation with annual screening; 5) All women should discuss with their providers when to sto p screening mammograms. Body Repairer(s): Zahraa Ball, RT(R)(M), [facility]; Evangelina Guillaume [facility] OVERALL STUDY BIRADS: 4 Suspicious finding - Biopsy should b e considered 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: Tierney Transcribe Date/Time: May 11 2020 10:56A Dictated by : CELESTINO ARANGO MD This examination was interpreted and the report reviewed and electronically signed by: CELESTINO ARANGO MD on May 11 2020 1:10PM EST [id number] [facility] diagnostic lt o n 2020-05-11 [facility] DIAGNOSTIC LT * * *Final Report* * * Normal 05-11-2020 [facility] DATE OF EXAM: May 11 2020 11:29AM [facility] 0621 - [facility] DIAGNOSTIC LT / ([id number]) PROCEDURE REASON: Abnormal mammogram * * * * Physician Interpretation * * * * RESULT: #[id number] - [facility] DIAGNOSTIC LT #[id number] - [facility] US BREAST LTD LT UNILATERAL LEFT DIGITAL DIAGNOSTIC MAMMOGRAM WITH CAD: 2019 HISTORY: Callback left // Abnormal Mammogram Abnormal Mammog akash. RESULT: TECHNIQUE: The study was acquired using full field digital t echnology and interpreted from soft copy. Current study was also evaluated with a Computer Aided Detec tion (CAD). Comparison is made to exams dated: 04/19/2020 mammogram, 2019 mammogram, 05/02/2019 mammogram, 04/22/2019 mammogram - [facility], 04/07/2019 mammogram, and 03/13/2018 mammogram - [facility]. There are scattered fibroglandular elements i n left breast. There is a 6 mm irregular mass in the left breast at 11 o'cl ock middle depth. No other significant masses or calcifications are seen in th e breast. IMPRESSION: SUSPICIOUS FINDING - BIOPSY SHOULD BE CONSIDERED The 6 mm irregular mass in the left breast is suspicious of malignancy. An ultrasound guided biopsy is recommended. I spoke with the patient to discuss biopsy. She states that she has no interest in biops y at this time despite my reccomendation. LIMITED ULTRASOUND OF LEFT BREAST AND AXILLA: 05/11/2020 RESULT: Comparison is made to exams dated: 04/19/2020 mammogram, 2019 mammogram, 05/02/2019 mammogram, 04/22/2019 mammogram - [facility], 04/07/2019 mammogram, and 03/13/2018 mammogram - [facility]. Color flow and real-time ultrasound of the left breast 11 o' clock, and axilla regions were performed. Hill scale images of the real -time examination were reviewed. There is 0.6 cm x 0.3 cm x 0.5 cm oval mass with an indistin ct margin in the left breast at 11 o'clock middle depth 6 cm from the nip ple. This oval mass is hypoechoic with internal echoes. This correlate s with mammography findings. IMPRESSION: SUSPICIOUS FINDING - BIOPSY SHOULD BE CONSIDERED The 0.6 cm x 0.3 cm x 0.5 cm oval mass in the left breast is suspicious of malignancy. An ultrasound guided biopsy is recommended. I spoke with the patient to discuss biopsy. She states that she has no in terest in biopsy at this time despite my reccomendation. Celestino youngblood/tierney:05/11/2020 13:10:21 Multiple national specialty organizations have released ajit st cancer screening guidelines for women at average risk for developin g breast cancer - guidelines that are based on both evidence and opin ion, yet differ on when to start and how often to screen for breast c ancer. With representation from Breast Imaging, Internal Medicine, Women 's Health, Family Medicine, and Medical/Surgical Oncology, the [facility] has carefully reviewed the data and reached the following consen patricia: 1) All women should engage in shared decision-making with eir providers to decide when to start and how often to screen; 2) All women should have the opportunity to start screening mammography at age 40; 3) For women ages 45-55, we recommend annual screening mammo grams; 4) For women ages 55 and over, we support both the transitio n from an annual to a biennial interval if this aligns more with patie nt's values and preferences, or continuation with annual screening; 5) All women should discuss with their providers when to sto p screening mammograms. Body Repairer(s): Zahraa Ball, RT(R)(M), [facility]; Evangelina Guillaume [facility] OVERALL STUDY BIRADS: 4 Suspicious finding - Biopsy should b e considered 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: Tierney Transcribe Date/Time: May 11 2020 10:56A Dictated by: CELESTINO ARANGO MD This examination was interpreted and the report reviewed and electronically signed by: CELESTINO ARANGO MD on May 11 2020 1:10PM EST [id number] [facility] 2020-[facility] CNPN Telephone (RDXWS) Normal 04-22-[address] [facility] BHAVESH BEAULIEU ([id number]) 1975 F T Mckenna Date Time Provider Department ([id number]) 04/22/20 RA GALVEZ RDXWS During your visit today, we recorded the following informati on about you: Derrell Dixon Tech 04/22/2020 11:17 AM Signed Please file orders for left diagnostic mammogram and l eft breast ultrasound. Additional imaging recommended from screening mammogram. Dev nks. Allergies As of Date: 04/22/2020 Noted Allergy Reaction BETA BLOCKERS (BETA-BLOCKERS (BET*2013 15 - Contraindication-Medical Sharma* Comments: Avoid use of beta blockers and KERRIE inhibitors sinc e patient is on venom immunotherapy KERRIE INHIBITORS 11/02/2014 15 - Contraindication-Medical Sharma* Comments: Avoid use of beta blockers and KERRIE inhibitors sinc e patient is on venom immunotherapy Environmental Allergies [Other] 12/25/2006 Comments: Grasses, molds, dust mites, cats, cockroaches LEXAPRO (ESCITALOPRAM OXALATE) 10/30/2018 5 - Intolerance Comments: altered mood PROZAC (FLUOXETINE HCL) 10/30/2018 5 - Intolerance Comments: altered mood TRINTELLIX (VORTIOXETINE) 01/08/2020 1 - Mental Status Carbajal e VENOM-WASP 09/26/2007 VENOM-YELLOW HORNET 09/26/2007 16 - Unknown Comments: Yellow and white faced hornet VENOM-YELLOW JACKET PROTEIN 09/26/2007 WELLBUTRIN (BUPROPION HCL) 05/08/2019 2 - Rash Comments: Agitation ZOLOFT (SERTRALINE HCL) 10/30/2018 5 - Intolerance Comments: altered mood Date Reviewed: 03/11/2020 Reviewed by: Ramirez Block - Fully Assessed Reason for Visit: Orders [681] Primary Visit Diagnosis:Abnormal mammogram [R92.8] Order(s):[facility] DIAGNOSTIC LT [[id number]] Order #: [id number] FUT URE US BREAST LTD LT [[id number]] Order #: [id number] FUTURE Prescriptions as of 04/22/2020 Sig: ALBUTEROL SULFATE HFA 90 MCG/* Inhale 2 Puffs as instructed * AMITRIPTYLINE 50 MG TABLET Take 0.5 tablets by mouth mara* EPINEPHRINE 0.3 MG/0.3 ML INJ* Inject 0.3 mL intramuscularly * CETIRIZINE 10 MG TABLET Take 1 tablet by mouth once d* GABAPENTIN 100 MG CAPSULE Take 1 capsule by mouth three* OYSCO-500 500 MG CALCIUM (1,* Take 1 tablet by mouth twice * MAGNESIUM OXIDE 500 MG TABLET Take 1 tablet by mouth once d* NYSTATIN 100,000 UNIT/GRAM TO* Apply 1 application to affect * FLUTICASONE PROPIONATE 115 MC* Inhale 2 Puffs as instructed * MELOXICAM 15 MG TABLET Take 0.5-1 tablets by mouth o* PRODIGEN 31 BILLION CELL CAPS* Take 1 capsule by mouth daily * GOLD SOLANO MEDICATED BABY 79 %* Apply 1 application to affect * Patient taking differently: Apply 1 application to affect* CYCLOBENZAPRINE 10 MG TABLET Take 1 tablet by mouth three * ALBUTEROL SULFATE 2.5 MG/3 ML* Use 3 mL via nebulizer every * DEXTROAMPHETAMINE-AMPHETAMINE* Take 20 mg by mouth once ngozi * FAMOTIDINE 20 MG TABLET Take 1 tablet by mouth twice * CALCIUM CARBONATE 500 MG (1,2* Take 1 tablet by mouth twice * B-COMPLEX WITH VITAMIN C TABL* Take 1 tablet by mouth once d * CHOLECALCIFEROL (VITAMIN D3) * Take 1 tablet by mouth once d * LACTOBACILLUS RHAMNOSUS GG-LA* Take 1 capsule by mouth daily * LORAZEPAM 0.5 MG TABLET Take by mouth at bedtime as n* TRIAMCINOLONE ACETONIDE 55 MC* Use 2 Sprays in each nostril * AZELASTINE 137 MCG (0.1 %) NA* Use 2 Sprays in each nostril * GUAIFENESIN ER 600 MG TABLET,* Take 2 tablets by mouth twice * KETOTIFEN 0.025 % (0.035 %) E* One drop to each eye 2 to 3 t * RIZATRIPTAN 10 MG TABLET Take 1 tablet by mouth as nee* TOPIRAMATE 50 MG TABLET Take 50 mg by mouth twice mara* ZIPRASIDONE 40 MG CAPSULE Take 40 mg by mouth daily wit* VITAMIN B COMPLEX TABLET Take 1 tablet by mouth once d* Problem List As Of Date 04/22/2020 Noted Resolved ASTHMA UNSPECIFIED [J45.909] 11/02/2014 Allergic rhinitis due to fungal spores [J30.89] More... Obesity, Class III, BMI 40-49.9 (morbid obesity*11/21/2006 Obstructive sleep apnea [G47.33] 08/19/2007 Toxic effect of venom [T63.91XA] 09/23/2007 11/28/2018 Moderate persistent asthma [J45.40] 11/02/2014 Allergic rhinitis due to dust mite [J30.89] 01/24/2018 Allergic rhinitis due to cat hair [J30.81] 01/24/2018 Seasonal allergic rhinitis due to pollen [J30.1]01/24/2018 Right ureteral calculus [N20.1] 02/15/2018 More... Nonspecific paroxysmal spell [R40.4] 08/14/2018 09/24/2018 Psychogenic nonepileptic seizure [F44.5] 08/14/2018 Transient alteration of awareness [R40.4] 08/14/2018 018 Concern about neurological disease without diag*08/14/2018 1 11/24/2017 Psychosocial stressors [Z65.8] 08/14/2018 Episodic mood disorder (HCC) [F39] 08/14/2018 Convulsions (HCC) [R56.9] 09/23/2018 Other group home (current) drug therapy [Z79.899]08/22/2018 Severe manic bipolar I disorder with psychotic *09/24/2018 Toxic effect of venom [T63.91XA] 11/28/2018 Myalgia [M79.10] 01/29/2019 Chronic pain syndrome [G89.4] 01/29/2019 Concentration deficit [R41.840] 01/29/2019 Screening for breast cancer [Z12.39] 01/29/2019 Bipolar disorder, current episode mixed, modera*04/08/2019 Intractable migraine without status migrainosus*04/08/2019 Intertrigo [L30.4] 04/08/2019 Dyslipidemia [E78.5] 01/14/2020 IFG (impaired fasting glucose) [R73.01] 01/14/2020 Encounter Status:Closed by KAMLA HARRY MD on 04/22/20 progress on 2020-04 PROGRESS HNO ID: [id number] Normal 04-19-2020 [facility] Author: Derrell Dioxn (Tech) ([id number]) Service: ? Author Type: Msws Type: Progress Notes Filed: 04/19/2020 11:17 AM Note Text: Radiology Service Progress Note PATIENT NAME: Bhavesh Beaulieu DATE OF SERVICE: April 19, 2020 TIME: 11:17 AM PATIENT IDENTITY VERIFICATION COMPLETED USING TWO (2) IDENTI FIERS: Name and Date of confirmed by patient verbally. FALL SCREENING: Has the patient had 2 falls in the last year or 1 fall with injury or currently using an Ambulatory Assistive Devic e (Walker, Cane, Wheelchair, Crutches, etc.)? No PATIENT GENDER DATA: Female. status: : No status: NO. PATIENT RELEVANT IMPLANT DATA REVIEWED: Not Applicable RADIOLOGY DEPARTMENT: Mammography PERIPHERAL IV DATA: Not applicable SIGNED BY: Derrell Dixon April 19, 2020 11:17 AM chucky screening on 08-05-01 [facility] SCREENING * * *Final Report* * * Normal [facility] DATE OF EXAM: Apr 19 2020 11:43AM Mckenna ([id number]) WRW 0581 - [facility] SCREENING / PROCEDURE REASON: Screening for breast cancer * * * * Physician Interpretation * * * * RESULT: #[id number] - [facility] SCREENING BILATERAL DIGITAL SCREENING MAMMOGRAM WITH CAD: 04/19/2020 HISTORY: Screening For Breast Cancer /Screening Mammogram-jamison galindo reports no symptoms. /priors available for comparison. RESULT: TECHNIQUE: The study was acquired using full field digital t echnology and interpreted from soft copy. Current study was also evaluated with a Computer Aided Detec tion (CAD). Comparison is made to exams dated: 12/02/2019 mammogram, 05/02 mammogram - [facility], 04/07/2019 mammogram, mammogram, and 11/14/2016 mammogram - [facility]. There are scattered fibroglandular elements in both breasts. There are biopsy clips in the right breast. There is a possible asymmetry in the left breast anterior de pth medial region seen on the craniocaudal view only. No other significant masses, calcifications, or other findin gs are seen in either breast. IMPRESSION: INCOMPLETE: NEEDS ADDITIONAL IMAGING EVALUATION The possible asymmetry in the left breast is indeterminate. Additional views are recommended. The exam was reviewed by a staff physician. Jermaine mulligan,ifeanyi/penjennyfer:04/19/2020 13:21:05 Body Repairer(s): RT Mauri(Dell)(M), [facility] letter sent: Additional Imaging Needed Mammogram BI-RADS: 0 Incomplete: needs additional imaging ev aluation If this report indicates you need additional imaging, and it has NOT yet been performed, please call , to schedule. We sincerely thank you for choosing the [facility] for yo ur breast imaging needs. Multiple national specialty organizations have released ajit st cancer screening guidelines for women at average risk for developin g breast cancer - guidelines that are based on both evidence and opin ion, yet differ on when to start and how often to screen for breast c ancer. With representation from Breast Imaging, Internal Medicine, Women 's Health, Family Medicine, and Medical/Surgical Oncology, the [facility] has carefully reviewed the data and reached the following consen patricia: 1) All women should engage in shared decision-making with eir providers to decide when to start and how often to screen; 2) All women should have the opportunity to start screening mammography at age 40; 3) For women ages 45-55, we recommend annual screening mammo grams; 4) For women ages 55 and over, we support both the transitio n from an annual to a biennial interval if this aligns more with patie nt's values and preferences, or continuation with annual screening; 5) All women should discuss with their providers when to sto p screening mammograms. 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: Tierney Transcribe Date/Time: Apr 19 2020 11:25A Dictated by: LIZ CAMPOS MD This examination was interpreted and the report reviewed and electronically signed by: JERMAINE BOYLE MD on Apr 19 2020 1:21PM EST [id number] cnco on 2020-04-19 [facility] HNO ID: [id number] Normal 04-19-2020 [facility] Author: Mammography Coordinator Mckenna ([id number]) Service: ? Author Type: Physician Type: Letter Filed: 04/20/2020 11:32 PM Note Text: April 19, 2020 PID: [id number] Bhavesh Beaulieu [address] [place] [address] Dear Ms. Beaulieu, Your recent breast imaging exam on 04/19/2020 showed a possibl e finding that requires additional imaging studies for a complete evaluatio n. Most such findings are probably benign (not cancer). If you have a healthcare provider who ordered/prescribed you r screening mammogram: Please call [phone] or [phone] to schedule an appointment for your additional imaging (if you have not already done so). If you DO NOT have a healthcare provider (ie you did not hav e an order/prescription for your screening mammogram): Please call to schedule an appointment for you r additional imaging (if you have not already done so). You must have an order/prescription from your physician when calling to schedule your appointment. If your order/prescription is not electronic, you must bring the hard copy with you on the day of your exa m to avoid delays. Your imaging studies and reports are kept on file at [facility] as part of your permanent medical record, and are available for your continuing care. Thank you for allowing us to help in meeting your health car e needs. Sincerely, Dr. Boyle Interpreting Radiologist [facility] (Additional imaging) progress on 2020-03 PROGRESS HNO ID: [id number] Normal 04-05-2020 [facility] Author: Kaylin Chen) Zan Hallman ([id number]) Service: ? Author Type: Physician Field Investigator Type: Progress Notes Filed: 04/08/2020 8:35 AM Note Text: Telemedicine Visit - Distance Health Virtual Visit Note Patient seen on [employer] platform. Location of patient: [place] This Team Access Model visit is a phone encounter. It requir ed patient-provider interaction for the medical decision making as documented below. Not able to connect x 2 on [employer] platform so converted to a phone visit. Pt gave verbal consent to have telephone visit. Total time spent 15 minutes. History of Present Illness Bhavesh Beaulieu is a 44 year old year old female who presen for the past 9 days with symptoms that are:gradually worsening. Pt presents with facial pressure and pain for 3-4 days. She has had congestion for 9 days and worsened this weekend. She has mul tiple chronic allergies and takes nasacort and zyrtec daily. She has had a headache. NO cough, no sob, no fever, no sore throat, no diarrhea, no celeste nge in smell or taste. No known covid19 exposures. She was in the ER 3 da ys ago for depression screening. Symptoms include: Positive for Nasal congestion, PND, Face pain/pressure and H eadache, Negative for Fever, Chills/Sweats, Cough, Hemoptysis, SOB, D OE, Wheezing, Otalgia, Sore throat, Fatigue, Nausea, Emesis and Diarrhea Oral intake: normal Tobacco use: No Second hand smoke exposure: No Recent exposure to strep:No Sick contacts: was in ER 3 days ago Recent travel: none OTC meds/remedies that patient has tried: nasacort, zyrtec. PAST MEDICAL HISTORY Diagnosis Date - Allergic rhinitis, cause unspecified Allergy, airborne subst - Anxiety and depression - Bee allergy status - Depression - Environmental allergies - GERD (gastroesophageal reflux disease) - Hypercholesteremia 11/2014 - Impaired fasting glucose - Migraines - Morbid obesity (HCC) - Obstructive sleep apnea DX 2006, not on CPAP since 06/2018 - Unspecified asthma(493.90) weather, allergy and exercise triggers - Vitamin D deficiency PAST SURGICAL HISTORY Procedure Laterality Date - DELIVERY ONLY 2001 , low cervical - LIGATE FALLOPIAN TUBE 2001 Tubal ligation - LITHOTRIPSY [facility] Right 02/18/2018 - STEREOTACTIC LOCALIZATION BREAST BIOPSY Right 05/26/2019 FAMILY HISTORY Problem Relation Age of Onset - Asthma Mother - Thyroid Mother - COPD Mother - other (depression) Mother - other (depression) Sister - Asthma Brother - Depression Brother - Diabetes Father - Hypertension Father - Diabetes Maternal Grandmother - Thyroid Maternal Grandmother - Cancer Maternal Grandfather unknown - Kidney Disease Paternal Grandmother - Cancer Paternal Grandfather - Asthma Daughter - Depression Daughter - Depression Daughter - other (ADD) Daughter Social History Tobacco Use - Smoking status: Never Smoker - Smokeless tobacco: Never Used Substance Use Topics - Alcohol use: No Frequency: Monthly or less Drinks per session: 1 or 2 Binge frequency: Never - Drug use: No Current Outpatient Medications Medication Sig - amoxicillin-clavulanic acid (AUGMENTIN) 875-125 mg per tab let Take 1 tablet by mouth every 12 hours for 10 days. - albuterol HFA (VENTOLIN HFA) 90 mcg/actuation inhaler Inha le 2 Puffs as instructed every 4 hours as needed. - amitriptyline (ELAVIL) 50 mg tablet Take 0.5 tablets by [facility] daily at bedtime. - EPINEPHrine (EPIPEN) 0.3 mg/0.3 mL auto-injector Inject 0. 3 mL intramuscularly as needed (for allergic reaction.Seek emerge nt medical care immediately after use.Disp:one 2-pack w/education trainer). - cetirizine (ZYRTEC) 10 mg tablet Take 1 tablet by mouth on ce daily as needed. - gabapentin (NEURONTIN) 100 mg capsule Take 1 capsule by mo uth three times daily for 98 days. - OYSCO-500 500 mg calcium (1,250 mg) tablet Take 1 tablet b y mouth twice daily with meals. - Magnesium Oxide 500 mg tab Take 1 tablet by mouth once mara ly. - nystatin (MYCOSTATIN) powder Apply 1 application to affect ed area four times daily. As needed for yeast rash - fluticasone-salmeterol HFA (ADVAIR HFA) 115-21 mcg/actuati on inhaler Inhale 2 Puffs as instructed twice daily. Use with spacer. R inse mouth out after use. - meloxicam (MOBIC) 15 mg tablet Take 0.5-1 tablets by mouth once daily. As needed for pain, Take with food. - PRODIGEN 31 billion cell cap Take 1 capsule by mouth daily at bedtime. - [place] Dgxfyv-Fwucqa-Lvfr Oxide (GOLD SOLANO MEDICATED BABY) 7 9-4-15 % powd Apply 1 application to affected area twice daily as needed ( intertrigo). (Patient taking differently: Apply 1 application to affected area twice daily as needed (intertrigo). Not medicated ) - cyclobenzaprine (FLEXERIL) 10 mg tablet Take 1 tablet by m outh three times daily as needed for Muscle Spasm. - albuterol (PROVENTIL) 2.5 mg /3 mL (0.083 %) nebulizer estevan ution Use 3 mL via nebulizer every 4 hours as needed for Wheezing/Shortness of Breath. 1 vial contains 3 ml. - amphetamine-dextroamphetamine XR (ADDERALL XR) 20 mg 24 hr capsule Take 20 mg by mouth once daily. - famotidine (PEPCID) 20 mg tablet Take 1 tablet by mouth tw ice daily. - yrsldqk-gyxinzxee-gdodrzl D3 (CALCIUM 500+D) 500 mg(1,250m g) -200 unit per tablet Take 1 tablet by mouth twice daily with meals. - B-complex with vitamin C (ALLBEE WITH C) tablet Take 1 tab let by mouth once daily. - cholecalciferol (VITAMIN D3) 2,000 unit tablet Take 1 tabl et by mouth once daily. - L. rhamnosus-L. reuteri (REPHRESH PRO-B) 2.5 billion cell cap Take 1 capsule by mouth daily at bedtime. - LORazepam (ATIVAN) 0.5 mg tab Take by mouth at bedtime as needed. - triamcinolone acetonide (NASACORT AQ) 55 mcg nasal inhaler Use 2 Sprays in each nostril every morning. - azelastine (ASTELIN,ASTEPRO) 0.1% nasal spray Use 2 Sprays in each nostril daily at bedtime. - guaiFENesin (MUCINEX) 600 mg 12 hr tablet Take 2 tablets b y mouth twice daily as needed. - ketotifen fumarate (ZADITOR) 0.025 % (0.035 %) ophthalmic solution One drop to each eye 2 to 3 times a day as needed. - rizatriptan (MAXALT) 10 mg tablet Take 1 tablet by mouth a s needed for Migraine Headache (see administration instructions). May rep eat in 2 hours if needed - topiramate (TOPAMAX) 50 mg tablet Take 50 mg by mouth twic e daily. - ziprasidone (GEODON) 40 mg capsule Take 40 mg by mouth mara ly with dinner. - vitamin b complex (B COMPLETE) tab Take 1 tablet by mouth once daily. No current facility-administered medications for this visit. ALLERGIES Allergen Reactions - Beta Blockers [Beta* Contraindication-Medical Surgical Avoid use of beta blockers and KERRIE inhibitors since patient is on venom immunotherapy - Kerrie Inhibitors Contraindication-Medical Surgical Avoid use of beta blockers and KERRIE inhibitors since patient is on venom immunotherapy - Environmental Aller* Grasses, molds, dust mites, cats, cockroaches - Lexapro [Escitalopr* Intolerance altered mood - Prozac [Fluoxetine * Intolerance altered mood - Trintellix [Vortiox* Mental Status Change - Venom-Wasp - Venom-Yellow Hornet Unknown Yellow and white faced hornet - Venom-Yellow Jacket* - Wellbutrin [Bupropi* Rash Agitation - Zoloft [Sertraline * Intolerance altered mood No video exam available, visit over the phone ON phone call patient alert, sounds in no distress. She has tenderness to self palpation of the right frontal and maxillary sinus. No audible wheezing, patient speaking in full sentences. ASSESSMENT/PLAN: 1. Acute pansinusitis, recurrence not specified - ICD9: 461. 8, ICD10: J01.40 I will treat with augmentin. I did discussed covid19 symptom s, she does not have any fever, cough, shortness of breath, diarrhea, ch elma in smell or taste or other associated symptoms to qualify for testing right now. Discussed if she develops any of these to call back in. Pt n ot interested in testing right now anyways. She is agreeable with plan. Kaylin Zuluaga PA-C PROGRESS HNO ID: [id number] Normal 04-05-2020 [facility] Author: Kaylin Zuluaga (Pa) Mckenna ([id number]) Service: ? Author Type: Physician Field Investigator Type: Progress Notes Filed: 04/05/2020 12:40 PM Note Text: Not able to connect on ECO with patient. Kaylin Zuluaga PA-C obsolete on 2020-03 OBSOLETE Refill (FAMPWS) Normal 04-02-[address] [facility] BHAVESH BEAULIEU ([id number]) 1975 [facility] Date Time Provider Department ([id number]) 04/02/20 RA GALVEZ FAMPWS During your visit today, we recorded the following informati on about you: Von Livingston LPN 04/02/2020 2:45 PM Signed Patient phones requesting refills as follows: Pending Prescriptions Disp Refills ALBUTEROL SULFATE HFA 90 MCG/ACTUATION AEROSOL INHALER 1 Inh aler 2 Sig: Inhale 2 Puffs as instructed every 4 hours as needed. EPI: No Please review and advise. Von Starr APRN.SHARATH 04/02/2020 2:59 PM Signed The following approved medic ation requests have been transmitted electronically. Signed Prescriptions Disp Refills albuterol HFA (VENTOLIN HFA) 90 mcg/actuation inhaler 1 Inha ler 2 Sig: Inhale 2 Puffs as instructed every 4 hours as needed. EPI: No Authorizing Provider: RA GALVEZ Ordering User: MARIO STARR APRN.EVIDENCE SPECIALIST Allergies As of Date: 04/02/2020 Noted Allergy Reaction BETA BLOCKERS (BETA-BLOCKERS (BET*2013 15 - Contraindication-Medical Sharma* Comments: Avoid use of beta blockers and KERRIE inhibitors sinc e patient is on venom immunotherapy KERRIE INHIBITORS 11/02/2014 15 - Contraindication-Medical Sharma* Comments: Avoid use of beta blockers and KERRIE inhibitors sinc e patient is on venom immunotherapy Environmental Allergies [Other] 12/25/2006 Comments: Grasses, molds, dust mites, cats, cockroaches LEXAPRO (ESCITALOPRAM OXALATE) 10/30/2018 5 - Intolerance Comments: altered mood PROZAC (FLUOXETINE HCL) 10/30/2018 5 - Intolerance Comments: altered mood TRINTELLIX (VORTIOXETINE) 01/08/2020 1 - Mental Status Carbajal e VENOM-WASP 09/26/2007 VENOM-YELLOW HORNET 09/26/2007 16 - Unknown Comments: Yellow and white faced hornet VENOM-YELLOW JACKET PROTEIN 09/26/2007 WELLBUTRIN (BUPROPION HCL) 05/08/2019 2 - Rash Comments: Agitation ZOLOFT (SERTRALINE HCL) 10/30/2018 5 - Intolerance Comments: altered mood Date Reviewed: 03/11/2020 Reviewed by: Ramirez Block - Fully Assessed Reason for Visit: Refill Request [94] Order(s):albuterol HFA (VENTOLIN HFA) 90 mcg/actuation inhalerInhale 2 Puffs as instructed every 4 hours as needed.Disp: 1 InhalerRfl: 2 Prescriptions as of 04/02/2020 Sig: ALBUTEROL SULFATE HFA 90 MCG/* Inhale 2 Puffs as instructed * AMITRIPTYLINE 50 MG TABLET Take 0.5 tablets by mouth mara* EPINEPHRINE 0.3 MG/0.3 ML INJ* Inject 0.3 mL intramuscularly * CETIRIZINE 10 MG TABLET Take 1 tablet by mouth once d* GABAPENTIN 100 MG CAPSULE Take 1 capsule by mouth three* OYSCO-500 500 MG CALCIUM (1,* Take 1 tablet by mouth twice * MAGNESIUM OXIDE 500 MG TABLET Take 1 tablet by mouth once d* NYSTATIN 100,000 UNIT/GRAM TO* Apply 1 application to affect * FLUTICASONE PROPIONATE 115 MC* Inhale 2 Puffs as instructed * MELOXICAM 15 MG TABLET Take 0.5-1 tablets by mouth o* PRODIGEN 31 BILLION CELL CAPS* Take 1 capsule by mouth daily * GOLD SOLANO MEDICATED BABY 79 %* Apply 1 application to affect * Patient taking differently: Apply 1 application to affect* CYCLOBENZAPRINE 10 MG TABLET Take 1 tablet by mouth three * ALBUTEROL SULFATE 2.5 MG/3 ML* Use 3 mL via nebulizer every * DEXTROAMPHETAMINE-AMPHETAMINE* Take 20 mg by mouth once ngozi * FAMOTIDINE 20 MG TABLET Take 1 tablet by mouth twice * CALCIUM CARBONATE 500 MG (1,2* Take 1 tablet by mouth twice * B-COMPLEX WITH VITAMIN C TABL* Take 1 tablet by mouth once d * CHOLECALCIFEROL (VITAMIN D3) * Take 1 tablet by mouth once d * LACTOBACILLUS RHAMNOSUS GG-LA* Take 1 capsule by mouth daily * LORAZEPAM 0.5 MG TABLET Take by mouth at bedtime as n* TRIAMCINOLONE ACETONIDE 55 MC* Use 2 Sprays in each nostril * AZELASTINE 137 MCG (0.1 %) NA* Use 2 Sprays in each nostril * GUAIFENESIN ER 600 MG TABLET,* Take 2 tablets by mouth twice * KETOTIFEN 0.025 % (0.035 %) E* One drop to each eye 2 to 3 t * RIZATRIPTAN 10 MG TABLET Take 1 tablet by mouth as nee* TOPIRAMATE 50 MG TABLET Take 50 mg by mouth twice mara* ZIPRASIDONE 40 MG CAPSULE Take 40 mg by mouth daily wit* VITAMIN B COMPLEX TABLET Take 1 tablet by mouth once d* Problem List As Of Date 04/02/2020 Noted Resolved ASTHMA UNSPECIFIED [J45.909] 11/02/2014 Allergic rhinitis due to fungal spores [J30.89] More... Obesity, Class III, BMI 40-49.9 (morbid obesity*11/21/2006 Obstructive sleep apnea [G47.33] 08/19/2007 Toxic effect of venom [T63.91XA] 09/23/2007 11/28/2018 Moderate persistent asthma [J45.40] 11/02/2014 Allergic rhinitis due to dust mite [J30.89] 01/24/2018 Allergic rhinitis due to cat hair [J30.81] 01/24/2018 Seasonal allergic rhinitis due to pollen [J30.1]01/24/2018 Right ureteral calculus [N20.1] 02/15/2018 More... Nonspecific paroxysmal spell [R40.4] 08/14/2018 09/24/2018 Psychogenic nonepileptic seizure [F44.5] 08/14/2018 Transient alteration of awareness [R40.4] 08/14/2018 018 Concern about neurological disease without diag*08/14/2018 1 11/24/2017 Psychosocial stressors [Z65.8] 08/14/2018 Episodic mood disorder (HCC) [F39] 08/14/2018 Convulsions (HCC) [R56.9] 09/23/2018 Other group home (current) drug therapy [Z79.899]08/22/2018 Severe manic bipolar I disorder with psychotic *09/24/2018 Toxic effect of venom [T63.91XA] 11/28/2018 Myalgia [M79.10] 01/29/2019 Chronic pain syndrome [G89.4] 01/29/2019 Concentration deficit [R41.840] 01/29/2019 Screening for breast cancer [Z12.39] 01/29/2019 Bipolar disorder, current episode mixed, modera*04/08/2019 Intractable migraine without status migrainosus*04/08/2019 Intertrigo [L30.4] 04/08/2019 Dyslipidemia [E78.5] 01/14/2020 IFG (impaired fasting glucose) [R73.01] 01/14/2020 Prescriptions ordered this encounter Disp Refills Start End ALBUTEROL SULFATE HFA 90 MCG/ACTUATI* 1 In* 2 04/02/2020 Cmt: Generic or brand: dispense inhaler preferre d by patient/insurance unless EPI flag is selected. Route: INHALATION Sig: Inhale 2 Puffs as instructed every 4 hours as needed. Medications Discontinued During This Encounter albuterol HFA (VENTOLIN HFA) 90 mcg/* 1 In* 2 04/07/201904/02 Cmt: Dispense Ventolin HFA: Brand or Generic Ok Route: INHALATION Sig: Inhale 2 Puffs as instructed every 4 hours as needed. Disc: Reason for discontinue is not on file. Encounter Status:Closed by JASMYNE BENAVIDEZ MA on 04/02/20 progress on 2020-02 PROGRESS HNO ID: [id number] Normal 03-11-2020 [facility] Author: Ramirez Block Mckenna ([id number]) Service: ? Author Type: Physician Type: Progress Notes Filed: 03/11/2020 2:05 PM Note Text: VIRTUAL VISIT PROGRESS NOTE This is a virtual visit. It required patient-provider intera ction for the medical decision making as documented below. Bhavesh Beaulieu is a 44 year old female with a history of a llergic rhinitis (cats, cockroach, dust mites, molds, grasses,) mode rate persistent asthma, stinging insect hypersensitivity and obst ructive sleep apnea who presents for a follow-up visit. Her last visit was 11/06/19. Patient contacted the office on January 25, 2020 indicating dev t her asthma symptoms were not well controlled on Symbicort 160?4 0.5. Sh e was changed back to Advair 115?21 2 puffs twice daily with significant i mprovement in her symptoms. She notes occasional wheezing triggered by tem perature changes or physical activity. Uses albuterol approximately t wice per week for acute symptoms. Denies nocturnal awakenings due to respi ratory symptoms. Denies treatment with systemic corticosteroids, ER visits or hospitalizations for asthma since her last visit. (Previously on Symbicort 160-4.5 and Breo Ellipta 200-25 wit hout relief. Complained of headaches associated with prior use of Dulera. ) She notes mild nasal and ocular symptoms when the grass is m owed. Otherwise, she feels her nasal and ocular symptoms are fairl y well controlled. Denies insect stings since her last visit. She reached the m aintenance dose of venom immunotherapy on November 21, 2018. Denies syste johnnie reactions to immunotherapy. She has epinephrine autoinjectors availabl e at all times. She does not wear a medical alert identification. Den ies current use of beta blockers or KERRIE inhibitors. History of YOBANI. She has been evaluated by sleep medicine. In tolerant to CPAP. She takes Pepcid 20 mg twice daily daily with good control o f her GERD symptoms. Dust mite precautions are in place in the home. No cats in t he home. Since her last visit she has moved into a new apartment. [facility] has central air conditioning and carpeting in the bedroom. There is one dog in the home. (09/28/2014: This is a consultation requested by Dr. Michelle Luna for an allergy and immunology evaluation. My final recommendations will be comm unicated back to the requesting physician by way of shared medical record or letter to requesting physician via US mail. Bhavesh Beaulieu is a 38 year old female with a history of a llergic rhinitis (cats, cockroach, dust mites, molds, grasses,) mode rate persistent asthma, stinging insect hypersensitivity and obst ructive sleep apnea who [facility]. Her last visit in is office was October 10, 2011 She c/o a one-month history of increased asthma symptoms tri ggered by upper respiratory infection. She complains of cough. Notes i ntermittent wheezing with physical activity. She has been using albutero l twice daily for acute symptoms. She was treated with Augmentin for a pos sible sinus infection. Denies oral steroids for asthma in the past year. Denies ER visits or admissions for asthma since her last visit. Influe nza vaccine is not up-to-date. The patient discontinued Symbicort shortl y after her last visit when she lost insurance coverage. Overall, her nasal and ocular symptoms are well controlled b y as needed use of Nasonex, astepro and Zyrtec. She denies experiencing insect stings since her last visit. Her EpiPen has . She was on venom immunotherapy beginning in September 30 7 and reached the maintenance dose in February,. She discontinued venom immunotherapy in September, when she lost insurance coverage. She tole rated the immunotherapy without systemic reaction. Denies experiencing any insect stings since starting immunotherapy. Dust mite precautions are not in place in the home (too expe nsive per patient). There is one cat in the home. Her occasion ally smokes in the home. She has not been using CPAP as she does not tolerate the mas k. She complains of frequent GERD symptoms. Previously on Prilo sec 20 mg daily with relief. REVIEW OF SYSTEMS: Negative for fevers, chills, night sweats and unintentional weight loss. Negative for skin rash and skin lesions All other review of systems negative except for those listed above. PAST MEDICAL HISTORY Diagnosis Date - Allergic rhinitis, cause unspecified Allergy, airborne subst - Anxiety and depression - Bee allergy status - Depression - Environmental allergies - GERD (gastroesophageal reflux disease) - Hypercholesteremia 11/2014 - Impaired fasting glucose - Migraines - Morbid obesity (HCC) - Obstructive sleep apnea DX 2006, not on CPAP since 06/2018 - Unspecified asthma(493.90) weather, allergy and exercise triggers - Vitamin D deficiency cetirizine (ZYRTEC) 10 mg tablet Take 1 tablet by mouth once daily as needed. gabapentin (NEURONTIN) 100 mg capsule Take 1 capsule by mout h three times daily for 98 days. OYSCO-500 500 mg calcium (1,250 mg) tablet Take 1 tablet by mouth twice daily with meals. Magnesium Oxide 500 mg tab Take 1 tablet by mouth once daily . nystatin (MYCOSTATIN) powder Apply 1 application to affected area four times daily. As needed for yeast rash fluticasone-salmeterol HFA (ADVAIR HFA) 115-21 mcg/actuation inhaler Inhale 2 Puffs as instructed twice daily. Use with spacer. R inse mouth out after use. meloxicam (MOBIC) 15 mg tablet Take 0.5-1 tablets by mouth o nce daily. As needed for pain, Take with food. PRODIGEN 31 billion cell cap Take 1 capsule by mouth daily a t bedtime. [place] Jkvcua-Qjokxb-Folp Oxide (GOLD SOLANO MEDICATED BABY) 79- 4-15 % powd Apply 1 application to affected area twice daily as needed ( intertrigo). budesonide-formoterol (SYMBICORT) 160-4.5 mcg/actuation inha ler Inhale 2 Puffs as instructed twice daily. Use with spacer. Rinse mout h out after use. cyclobenzaprine (FLEXERIL) 10 mg tablet Take 1 tablet by marianne th three times daily as needed for Muscle Spasm. albuterol (PROVENTIL) 2.5 mg /3 mL (0.083 %) nebulizer solut ion Use 3 mL via nebulizer every 4 hours as needed for Wheezing/Shortness of Breath. 1 vial contains 3 ml. amphetamine-dextroamphetamine XR (ADDERALL XR) 20 mg 24 hr c apsule Take 20 mg by mouth once daily. famotidine (PEPCID) 20 mg tablet Take 1 tablet by mouth twic e daily. smjeqdp-prcbqfiwi-fxyhtio D3 (CALCIUM 500+D) 500 mg(1,250mg) -200 unit per tablet Take 1 tablet by mouth twice daily with meals. B-complex with vitamin C (ALLBEE WITH C) tablet Take 1 table t by mouth once daily. cholecalciferol (VITAMIN D3) 2,000 unit tablet Take 1 tablet by mouth once daily. L. rhamnosus-L. reuteri (REPHRESH PRO-B) 2.5 billion cell ca p Take 1 capsule by mouth daily at bedtime. albuterol HFA (VENTOLIN HFA) 90 mcg/actuation inhaler Inhale 2 Puffs as instructed every 4 hours as needed. LORazepam (ATIVAN) 0.5 mg tab Take by mouth at bedtime as ne eded. triamcinolone acetonide (NASACORT AQ) 55 mcg nasal inhaler U se 2 Sprays in each nostril every morning. azelastine (ASTELIN,ASTEPRO) 0.1% nasal spray Use 2 Sprays i n each nostril daily at bedtime. guaiFENesin (MUCINEX) 600 mg 12 hr tablet Take 2 tablets by mouth twice daily as needed. ketotifen fumarate (ZADITOR) 0.025 % (0.035 %) ophthalmic so lution One drop to each eye 2 to 3 times a day as needed. rizatriptan (MAXALT) 10 mg tablet Take 1 tablet by mouth as needed for Migraine Headache (see administration instructions). May rep eat in 2 hours if needed amitriptyline (ELAVIL) 50 mg tablet Take 50 mg by mouth ngozi y at bedtime. topiramate (TOPAMAX) 50 mg tablet Take 50 mg by mouth twice daily. ziprasidone (GEODON) 40 mg capsule Take 40 mg by mouth daily with dinner. vitamin b complex (B COMPLETE) tab Take 1 tablet by mouth on ce daily. EPINEPHrine (EPIPEN) 0.3 mg/0.3 mL auto-injector Inject 0.3 mL intramuscularly as needed (for allergic reaction.Seek emerge nt medical care immediately after use.Disp:one 2-pack w/education trainer). ALLERGIES: Allergies As of Date: 03/11/2020 Allergen Noted Reaction BETA BLOCKERS [BETA-BLOCKERS (BET*11/02/2014 Contraindicatio n-Medical Surgical KERRIE INHIBITORS 11/02/2014 Contraindication-Medical Surgical ENVIRONMENTAL ALLERGIES [OTHER] 12/25/2006 LEXAPRO [ESCITALOPRAM OXALATE] 10/30/2018 Intolerance PROZAC [FLUOXETINE HCL] 10/30/2018 Intolerance TRINTELLIX [VORTIOXETINE] 01/08/2020 Mental Status Change VENOM-WASP 09/26/2007 VENOM-YELLOW HORNET 09/26/2007 Unknown VENOM-YELLOW JACKET PROTEIN 09/26/2007 WELLBUTRIN [BUPROPION HCL] 05/08/2019 Rash ZOLOFT [SERTRALINE HCL] 10/30/2018 Intolerance Fully Assessed 01/14/2020 PAST SURGICAL HISTORY Procedure Laterality Date - DELIVERY ONLY 2001 , low cervical - LIGATE FALLOPIAN TUBE 2001 Tubal ligation - LITHOTRIPSY [facility] Right 02/18/2018 - STEREOTACTIC LOCALIZATION BREAST BIOPSY Right 05/26/2019 FAMILY HISTORY: Allergic rhinitis:yes: mom, daughter and M Aunt. Asthma: yes: mom. Eczema: no. Cystic fibrosis: no. Immunodeficiency: no. 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 Erin: Gtic-td-sboy carpeting Dust mite controls: Dust mite controls are not in place. Pets in the home: 1 cats, 1 dogs Outdoor animals: There are no outdoor animals Tobacco smoke: Exposure in the home. smokes in the h ome at times. VIDEO EXAM: (if completed, performed via video enabled techn ology) GENERAL: alert and appropriate, in no distress, well-hydrate d, well nourished and happy, smiling, interactive SKIN: no rash noted HEAD: normocephalic, no abnormality or lesion noted EYES: no injection and visual acuity is grossly normal EARS: external ears normal NOSE: external nose normal without rhinorrhea NECK: full ROM, no cervical LNs noted RESPIRATORY: breathing non-labored and no grunting/flaring/r etractions NEUROLOGIC: no obvious deficit Lung volumes and DLCO on October 30, 2019: The TLC is reduc ed indicating mild restriction. Elevated residual volume over TLC consiste nt with air trapping. Spirometry on August 04, 2019: Decreased FEV1 and FVC wit h a normal FEV1/FVC ratio. There is not a significant bronchodilator re sponse. Spirometry on August 06, 2018:FVC is below normal. There is no obstruction. There is not a significant bronchodilator respo nse. Spirometry on July 26, 2017: FVC is below normal. There is no obstruction. There is not a significant bronchodilator respo nse. Spirometry on July 05, 2016: FVC is below normal. There is no obstruction. There is not a significant bronchodilator respo nse. Spirometry on November 02, 2014: FVC is mildly impaired. Spirometry otherwise normal The reduction in FVC may indicate a restrictive defect. Recommend lung volumes and diffusing capacity if clinically indicated. Exhaled nitric oxide on August 04, 2019: 15 PPB (Normal) Exhaled nitric oxide on August 06, 2018: 14 PPB Exhaled nitric oxide on July 26, 2017: 17 PPB Exhaled nitric oxide on July 05, 2016: 17 PPB Exhaled nitric oxide on November 02, 2014: 18 PPB (low/janet l) VENOM SKIN TESTS ON 11/02/2014: Positive to white faced horn et and yellow jacket on intradermal testing at 1 mcg per mL concentration. ASSESSMENT/PLAN: 1.) Stinging insect hypersensitivity: Insect sting avoidance measures. The patient should continue to have epinephrine autoinjector s (Epipen, Auvi-Q 0.3 mg, or Adrenaclick 0.3 mg) and benadryl 50 mg yovana ilable at all times in case of insect sting and anaphylactic reaction. Pro per use of epinephrine autoinjectors was reviewed with the patient. Jelena macias was instructed to seek emergent medical care immediately after u se. A second Epipen may be administered 5 or more minutes after the first if the reaction persists or recurs while awaiting EMS. She should wear a medical alert identification indicating he r stinging insect hypersensitivity. Continue venom immunotherapy as tolerated. Plan to continue at the maintenance dose for 5 years. Patient was reminded that beta chaim medications and kerrie inhibitors are contraindicated in patien ts on venom immunotherapy and was instructed to contact the office immed iately if she is prescribed a beta chaim or KERRIE inhibitor in the future. 2.) Moderate persistent asthma, well-controlled: Continue Advair 115?21 2 puffs twice daily. Use with spacer and rinse mouth out after use. Continue albuterol HFA inhaler with spacer 2 puffs every 4 h ours as needed. She should continue to receive an annual influenza vaccine. Pneumovax is up-to-date. 3.) Allergic rhinoconjunctivitis: Aggressive environmental c ontrols. Continue Nasacort AQ 2 sprays each nostril once daily in the morning. Continue Astelin 2 sprays each nostril at bedtime. Continue Zaditor one to 2 drops to each eye 2-3 times a day as needed. Continue Zyrtec 10 mg once daily as needed. 4.) GERD: Continue Pepcid 20 mg twice daily as prescribed by her PCP. 5.) Discussed medication dosage, usage, side effects, and go als of treatment in detail. 6.) Follow-up in 6 months- patient will return sooner should new symptoms or problems arise. Ramirez Block MD cnov on 2020-02-25 CNOV Office Visit (FAMPWS) Normal 02-25-[address] [place] [address] [facility] BHAVESH BEAULIEU ([id number]) 1975 [facility] Date Time Provider Department ([id number]) 02/25/20 11:10 AM [facility] During your visit today, we recorded the following informati on about you: Marie Angel LPN 02/25/2020 12:11 PM Signed Pt identified by name and birthdate. Allergy injection(s) given SQ. February 25, 2020 11:26 AM Patient states they did not take antihistamine. Patient states they did not have a large late local reaction to previous injection. Size of reaction na If patient has asthma, patient states symptoms controlled: Y es Patient states they did not report a recent illness. Patient on Beta chaim:No Patient has their Epi pen with them,Yes Vial Content: MIXED VESPID Immunotherapy Order written on: 09/04/[address] Ramirez Arboleda [phone] Concentration: 300 mcg Dose: 1 ml SQ Arm: left upper arm (proximal) Reaction after 30 minutes: flare Vial Content: WASP Concentration: 100 mcg Dose: 1 ml SQ Arm: right upper arm (proximal) Reaction after 30 minutes: flare Appointment line and nurses station numb er given as well as injection times at administering location. Marie Angel LPN Referring Provider: RAMIREZ BLOCK [[id number]] Allergies As of Date: 02/25/2020 Noted Allergy Reaction BETA BLOCKERS (BETA-BLOCKERS (BET*2013 15 - Contraindication-Medical Sharma* Comments: Avoid use of beta blockers and KERRIE inhibitors sinc e patient is on venom immunotherapy KERRIE INHIBITORS 11/02/2014 15 - Contraindication-Medical Sharma* Comments: Avoid use of beta blockers and KERRIE inhibitors sinc e patient is on venom immunotherapy Environmental Allergies [Other] 12/25/2006 Comments: Grasses, molds, dust mites, cats, cockroaches LEXAPRO (ESCITALOPRAM OXALATE) 10/30/2018 5 - Intolerance Comments: altered mood PROZAC (FLUOXETINE HCL) 10/30/2018 5 - Intolerance Comments: altered mood TRINTELLIX (VORTIOXETINE) 01/08/2020 1 - Mental Status Carbajal e VENOM-WASP 09/26/2007 VENOM-YELLOW HORNET 09/26/2007 16 - Unknown Comments: Yellow and white faced hornet VENOM-YELLOW JACKET PROTEIN 09/26/2007 WELLBUTRIN (BUPROPION HCL) 05/08/2019 2 - Rash Comments: Agitation ZOLOFT (SERTRALINE HCL) 10/30/2018 5 - Intolerance Comments: altered mood Date Reviewed: 01/14/2020 Reviewed by: Martha Cobian LPN - Fully Assessed Reason for Visit: Immunotherapy [409] Primary Visit Diagnosis:Toxic effect of venom, accidental or unintentional, subsequent encounter [T63.91XD] Prescriptions as of 02/25/2020 Sig: CETIRIZINE 10 MG TABLET Take 1 tablet by mouth once d* GABAPENTIN 100 MG CAPSULE Take 1 capsule by mouth three* OYSCO-500 500 MG CALCIUM (1,* Take 1 tablet by mouth twice * MAGNESIUM OXIDE 500 MG TABLET Take 1 tablet by mouth once d* NYSTATIN 100,000 UNIT/GRAM TO* Apply 1 application to affect * FLUTICASONE PROPIONATE 115 MC* Inhale 2 Puffs as instructed * MELOXICAM 15 MG TABLET Take 0.5-1 tablets by mouth o* PRODIGEN 31 BILLION CELL CAPS* Take 1 capsule by mouth daily * GOLD SOLANO MEDICATED BABY 79 %* Apply 1 application to affect * Patient taking differently: Apply 1 application to affect* SYMBICORT 160 MCG-4.5 MCG/ACT* Inhale 2 Puffs as instructed * CYCLOBENZAPRINE 10 MG TABLET Take 1 tablet by mouth three * ALBUTEROL SULFATE 2.5 MG/3 ML* Use 3 mL via nebulizer every * DEXTROAMPHETAMINE-AMPHETAMINE* Take 20 mg by mouth once ngozi * FAMOTIDINE 20 MG TABLET Take 1 tablet by mouth twice * CALCIUM CARBONATE 500 MG (1,2* Take 1 tablet by mouth twice * B-COMPLEX WITH VITAMIN C TABL* Take 1 tablet by mouth once d * CHOLECALCIFEROL (VITAMIN D3) * Take 1 tablet by mouth once d * LACTOBACILLUS RHAMNOSUS GG-LA* Take 1 capsule by mouth daily * ALBUTEROL SULFATE HFA 90 MCG/* Inhale 2 Puffs as instructed * LORAZEPAM 0.5 MG TABLET Take by mouth at bedtime as n* TRIAMCINOLONE ACETONIDE 55 MC* Use 2 Sprays in each nostril * AZELASTINE 137 MCG (0.1 %) NA* Use 2 Sprays in each nostril * GUAIFENESIN ER 600 MG TABLET,* Take 2 tablets by mouth twice * KETOTIFEN 0.025 % (0.035 %) E* One drop to each eye 2 to 3 t * RIZATRIPTAN 10 MG TABLET Take 1 tablet by mouth as nee* AMITRIPTYLINE 50 MG TABLET Take 50 mg by mouth daily at * TOPIRAMATE 50 MG TABLET Take 50 mg by mouth twice mara* ZIPRASIDONE 40 MG CAPSULE Take 40 mg by mouth daily wit* VITAMIN B COMPLEX TABLET Take 1 tablet by mouth once d* EPINEPHRINE 0.3 MG/0.3 ML INJ* Inject 0.3 mL intramuscularly * Problem List As Of Date 02/25/2020 Noted Resolved ASTHMA UNSPECIFIED [J45.909] 11/02/2014 Allergic rhinitis due to fungal spores [J30.89] More... Obesity, Class III, BMI 40-49.9 (morbid obesity*11/21/2006 Obstructive sleep apnea [G47.33] 08/19/2007 Toxic effect of venom [T63.91XA] 09/23/2007 11/28/2018 Moderate persistent asthma [J45.40] 11/02/2014 Allergic rhinitis due to dust mite [J30.89] 01/24/2018 Allergic rhinitis due to cat hair [J30.81] 01/24/2018 Seasonal allergic rhinitis due to pollen [J30.1]01/24/2018 Right ureteral calculus [N20.1] 02/15/2018 More... Nonspecific paroxysmal spell [R40.4] 08/14/2018 09/24/2018 Psychogenic nonepileptic seizure [F44.5] 08/14/2018 Transient alteration of awareness [R40.4] 08/14/2018 018 Concern about neurological disease without diag*08/14/2018 1 11/24/2017 Psychosocial stressors [Z65.8] 08/14/2018 Episodic mood disorder (HCC) [F39] 08/14/2018 Convulsions (HCC) [R56.9] 09/23/2018 Other group home (current) drug therapy [Z79.899]08/22/2018 Severe manic bipolar I disorder with psychotic *09/24/2018 Toxic effect of venom [T63.91XA] 11/28/2018 Myalgia [M79.10] 01/29/2019 Chronic pain syndrome [G89.4] 01/29/2019 Concentration deficit [R41.840] 01/29/2019 Screening for breast cancer [Z12.39] 01/29/2019 Bipolar disorder, current episode mixed, modera*04/08/2019 Intractable migraine without status migrainosus*04/08/2019 Intertrigo [L30.4] 04/08/2019 Dyslipidemia [E78.5] 01/14/2020 IFG (impaired fasting glucose) [R73.01] 01/14/2020 Visit Notes: >> Marie Angel [employer]PERATOR SunFeb 25, 2020 11:26 AM Status: Sig santos Pt identified by name and birthdate. Allergy injection(s) given SQ. February 25, 2020 11:26 AM Patient states they did not take antihistamine. Patient states they did not have a large late local reaction to previous injection. Size of reaction na If patient has asthma, patient states symptoms controlled: Y es Patient states they did not report a recent illness. Patient on Beta chaim:No Patient has their Epi pen with them,Yes Vial Content: MIXED VESPID Immunotherapy Order written on: 09/04/[address] Ramirez Segura [place] [phone] Concentration: 300 mcg Dose: 1 ml SQ Arm: left upper arm (proximal) Reaction after 30 minutes: flare Vial Content: WASP Concentration: 100 mcg Dose: 1 ml SQ Arm: right upper arm (proximal) Reaction after 30 minutes: flare Appointment line and nurses station number given as well as injection times at administering location. Marie Nolberto MEDINA Encounter Status:Closed by MARIE ANGEL LPN on 02/25/20 obsolete on 2020-02 OBSOLETE Refill (ALLMED) Normal 02-22-[address] [facility] BHAVESH BEAULIEU ([id number]) 1975 [facility] Date Time Provider Department ([id number]) 02/22/20 RAMIREZ BLOCK During your visit today, we recorded the following informati on about you: Ashwini Chu RN 02/24/2020 8:49 AM Signed ZENON 11-06-19 Patient phones requesting refills as follows: Pending Prescriptions Disp Refills CETIRIZINE 10 MG TABLET 30 tablet 7 Sig: Take 1 tablet by mouth once daily as needed. EPI: No Please review and advise. Ashwini Chu RN Allergies As of Date: 02/22/2020 Noted Allergy Reaction BETA BLOCKERS (BETA-BLOCKERS (BET*2013 15 - Contraindication-Medical Sharma* Comments: Avoid use of beta blockers and KERRIE inhibitors sinc e patient is on venom immunotherapy KERRIE INHIBITORS 11/02/2014 15 - Contraindication-Medical Sharma* Comments: Avoid use of beta blockers and KERRIE inhibitors sinc e patient is on venom immunotherapy Environmental Allergies [Other] 12/25/2006 Comments: Grasses, molds, dust mites, cats, cockroaches LEXAPRO (ESCITALOPRAM OXALATE) 10/30/2018 5 - Intolerance Comments: altered mood PROZAC (FLUOXETINE HCL) 10/30/2018 5 - Intolerance Comments: altered mood TRINTELLIX (VORTIOXETINE) 01/08/2020 1 - Mental Status Carbajal e VENOM-WASP 09/26/2007 VENOM-YELLOW HORNET 09/26/2007 16 - Unknown Comments: Yellow and white faced hornet VENOM-YELLOW JACKET PROTEIN 09/26/2007 WELLBUTRIN (BUPROPION HCL) 05/08/2019 2 - Rash Comments: Agitation ZOLOFT (SERTRALINE HCL) 10/30/2018 5 - Intolerance Comments: altered mood Date Reviewed: 01/14/2020 Reviewed by: Martha Cobian LPN - Fully Assessed Reason for Visit: Refill Request [94] Order(s):cetirizine (ZYRTEC) 10 mg tabletTake 1 tablet by mouth once daily as needed.Disp: 30 tabletRfl: 7 Prescriptions as of 02/22/2020 Sig: CETIRIZINE 10 MG TABLET Take 1 tablet by mouth once d* GABAPENTIN 100 MG CAPSULE Take 1 capsule by mouth three* OYSCO-500 500 MG CALCIUM (1,* Take 1 tablet by mouth twice * MAGNESIUM OXIDE 500 MG TABLET Take 1 tablet by mouth once d* NYSTATIN 100,000 UNIT/GRAM TO* Apply 1 application to affect * FLUTICASONE PROPIONATE 115 MC* Inhale 2 Puffs as instructed * MELOXICAM 15 MG TABLET Take 0.5-1 tablets by mouth o* PRODIGEN 31 BILLION CELL CAPS* Take 1 capsule by mouth daily * GOLD SOLANO MEDICATED BABY 79 %* Apply 1 application to affect * Patient taking differently: Apply 1 application to affect* SYMBICORT 160 MCG-4.5 MCG/ACT* Inhale 2 Puffs as instructed * CYCLOBENZAPRINE 10 MG TABLET Take 1 tablet by mouth three * ALBUTEROL SULFATE 2.5 MG/3 ML* Use 3 mL via nebulizer every * DEXTROAMPHETAMINE-AMPHETAMINE* Take 20 mg by mouth once ngozi * FAMOTIDINE 20 MG TABLET Take 1 tablet by mouth twice * CALCIUM CARBONATE 500 MG (1,2* Take 1 tablet by mouth twice * B-COMPLEX WITH VITAMIN C TABL* Take 1 tablet by mouth once d * CHOLECALCIFEROL (VITAMIN D3) * Take 1 tablet by mouth once d * LACTOBACILLUS RHAMNOSUS GG-LA* Take 1 capsule by mouth daily * ALBUTEROL SULFATE HFA 90 MCG/* Inhale 2 Puffs as instructed * LORAZEPAM 0.5 MG TABLET Take by mouth at bedtime as n* TRIAMCINOLONE ACETONIDE 55 MC* Use 2 Sprays in each nostril * AZELASTINE 137 MCG (0.1 %) NA* Use 2 Sprays in each nostril * GUAIFENESIN ER 600 MG TABLET,* Take 2 tablets by mouth twice * KETOTIFEN 0.025 % (0.035 %) E* One drop to each eye 2 to 3 t * RIZATRIPTAN 10 MG TABLET Take 1 tablet by mouth as nee* AMITRIPTYLINE 50 MG TABLET Take 50 mg by mouth daily at * TOPIRAMATE 50 MG TABLET Take 50 mg by mouth twice mara* ZIPRASIDONE 40 MG CAPSULE Take 40 mg by mouth daily wit* VITAMIN B COMPLEX TABLET Take 1 tablet by mouth once d* EPINEPHRINE 0.3 MG/0.3 ML INJ* Inject 0.3 mL intramuscularly * Problem List As Of Date 02/22/2020 Noted Resolved ASTHMA UNSPECIFIED [J45.909] 11/02/2014 Allergic rhinitis due to fungal spores [J30.89] More... Obesity, Class III, BMI 40-49.9 (morbid obesity*11/21/2006 Obstructive sleep apnea [G47.33] 08/19/2007 Toxic effect of venom [T63.91XA] 09/23/2007 11/28/2018 Moderate persistent asthma [J45.40] 11/02/2014 Allergic rhinitis due to dust mite [J30.89] 01/24/2018 Allergic rhinitis due to cat hair [J30.81] 01/24/2018 Seasonal allergic rhinitis due to pollen [J30.1]01/24/2018 Right ureteral calculus [N20.1] 02/15/2018 More... Nonspecific paroxysmal spell [R40.4] 08/14/2018 09/24/2018 Psychogenic nonepileptic seizure [F44.5] 08/14/2018 Transient alteration of awareness [R40.4] 08/14/2018 018 Concern about neurological disease without diag*08/14/2018 1 11/24/2017 Psychosocial stressors [Z65.8] 08/14/2018 Episodic mood disorder (HCC) [F39] 08/14/2018 Convulsions (HCC) [R56.9] 09/23/2018 Other group home (current) drug therapy [Z79.899]08/22/2018 Severe manic bipolar I disorder with psychotic *09/24/2018 Toxic effect of venom [T63.91XA] 11/28/2018 Myalgia [M79.10] 01/29/2019 Chronic pain syndrome [G89.4] 01/29/2019 Concentration deficit [R41.840] 01/29/2019 Screening for breast cancer [Z12.39] 01/29/2019 Bipolar disorder, current episode mixed, modera*04/08/2019 Intractable migraine without status migrainosus*04/08/2019 Intertrigo [L30.4] 04/08/2019 Dyslipidemia [E78.5] 01/14/2020 IFG (impaired fasting glucose) [R73.01] 01/14/2020 Prescriptions ordered this encounter Disp Refills Start End CETIRIZINE 10 MG TABLET 30 t* 7 02/24/2020 Route: ORAL Sig: Take 1 tablet by mouth once daily as needed. Medications Discontinued During This Encounter cetirizine (ZYRTEC) 10 mg tablet 30 t* 11 02/04/2019 02/24/2020 Route: ORAL Sig: Take 1 tablet by mouth once daily as needed. Disc: Reason for discontinue is not on file. Encounter Status:Closed by RAMIREZ BLOCK MD on 02/24/20 obsolete on 2020-01 OBSOLETE Refill (FAMPWS) Normal 02-05-[address] [facility] BHAVESH BEAULIEU ([id number]) 1975 [facility] Date Time Provider Department ([id number]) 02/05/20 RA GALVEZ FAMPWS During your visit today, we recorded the following informati on about you: Allergies As of Date: 02/05/2020 Noted Allergy Reaction BETA BLOCKERS (BETA-BLOCKERS (BET*2013 15 - Contraindication-Medical Sharma* Comments: Avoid use of beta blockers and KERRIE inhibitors sinc e patient is on venom immunotherapy KERRIE INHIBITORS 11/02/2014 15 - Contraindication-Medical Sharma* Comments: Avoid use of beta blockers and KERRIE inhibitors sinc e patient is on venom immunotherapy Environmental Allergies [Other] 12/25/2006 Comments: Grasses, molds, dust mites, cats, cockroaches LEXAPRO (ESCITALOPRAM OXALATE) 10/30/2018 5 - Intolerance Comments: altered mood PROZAC (FLUOXETINE HCL) 10/30/2018 5 - Intolerance Comments: altered mood TRINTELLIX (VORTIOXETINE) 01/08/2020 1 - Mental Status Carbajal e VENOM-WASP 09/26/2007 VENOM-YELLOW HORNET 09/26/2007 16 - Unknown Comments: Yellow and white faced hornet VENOM-YELLOW JACKET PROTEIN 09/26/2007 WELLBUTRIN (BUPROPION HCL) 05/08/2019 2 - Rash Comments: Agitation ZOLOFT (SERTRALINE HCL) 10/30/2018 5 - Intolerance Comments: altered mood Date Reviewed: 01/14/2020 Reviewed by: Martha Cobian LPN - Fully Assessed Reason for Visit: Refill Request [94] Visit Diagnoses:Chronic pain syndrome [G89.4] Myalgia [M79.10] Order(s):gabapentin (NEURONTIN) 100 mg capsuleTake 1 capsu le by mouth three times daily for 98 days.Disp: 90 capsuleRfl: 1 Prescriptions as of 02/05/2020 Sig: GABAPENTIN 100 MG CAPSULE Take 1 capsule by mouth three* MAGNESIUM OXIDE 500 MG TABLET Take 1 tablet by mouth once d* NYSTATIN 100,000 UNIT/GRAM TO* Apply 1 application to affect * FLUTICASONE PROPIONATE 115 MC* Inhale 2 Puffs as instructed * MELOXICAM 15 MG TABLET Take 0.5-1 tablets by mouth o* PRODIGEN 31 BILLION CELL CAPS* Take 1 capsule by mouth daily * X OYSCO-500 500 MG CALCIUM (1,* Take 1 tablet by mouth twice * GOLD SOLANO MEDICATED BABY 79 %* Apply 1 application to affect * Patient taking differently: Apply 1 application to affect* SYMBICORT 160 MCG-4.5 MCG/ACT* Inhale 2 Puffs as instructed * CYCLOBENZAPRINE 10 MG TABLET Take 1 tablet by mouth three * ALBUTEROL SULFATE 2.5 MG/3 ML* Use 3 mL via nebulizer every * DEXTROAMPHETAMINE-AMPHETAMINE* Take 20 mg by mouth once ngozi * FAMOTIDINE 20 MG TABLET Take 1 tablet by mouth twice * CALCIUM CARBONATE 500 MG (1,2* Take 1 tablet by mouth twice * B-COMPLEX WITH VITAMIN C TABL* Take 1 tablet by mouth once d * CHOLECALCIFEROL (VITAMIN D3) * Take 1 tablet by mouth once d * LACTOBACILLUS RHAMNOSUS GG-LA* Take 1 capsule by mouth daily * ALBUTEROL SULFATE HFA 90 MCG/* Inhale 2 Puffs as instructed * LORAZEPAM 0.5 MG TABLET Take by mouth at bedtime as n* TRIAMCINOLONE ACETONIDE 55 MC* Use 2 Sprays in each nostril * AZELASTINE 137 MCG (0.1 %) NA* Use 2 Sprays in each nostril * GUAIFENESIN ER 600 MG TABLET,* Take 2 tablets by mouth twice * CETIRIZINE 10 MG TABLET Take 1 tablet by mouth once d* KETOTIFEN 0.025 % (0.035 %) E* One drop to each eye 2 to 3 t * RIZATRIPTAN 10 MG TABLET Take 1 tablet by mouth as nee* AMITRIPTYLINE 50 MG TABLET Take 50 mg by mouth daily at * TOPIRAMATE 50 MG TABLET Take 50 mg by mouth twice mara* ZIPRASIDONE 40 MG CAPSULE Take 40 mg by mouth daily wit* VITAMIN B COMPLEX TABLET Take 1 tablet by mouth once d* EPINEPHRINE 0.3 MG/0.3 ML INJ* Inject 0.3 mL intramuscularly * Problem List As Of Date 02/05/2020 Noted Resolved ASTHMA UNSPECIFIED [J45.909] 11/02/2014 Allergic rhinitis due to fungal spores [J30.89] More... Obesity, Class III, BMI 40-49.9 (morbid obesity*11/21/2006 Obstructive sleep apnea [G47.33] 08/19/2007 Toxic effect of venom [T63.91XA] 09/23/2007 11/28/2018 Moderate persistent asthma [J45.40] 11/02/2014 Allergic rhinitis due to dust mite [J30.89] 01/24/2018 Allergic rhinitis due to cat hair [J30.81] 01/24/2018 Seasonal allergic rhinitis due to pollen [J30.1]01/24/2018 Right ureteral calculus [N20.1] 02/15/2018 More... Nonspecific paroxysmal spell [R40.4] 08/14/2018 09/24/2018 Psychogenic nonepileptic seizure [F44.5] 08/14/2018 Transient alteration of awareness [R40.4] 08/14/2018 018 Concern about neurological disease without diag*08/14/2018 1 11/24/2017 Psychosocial stressors [Z65.8] 08/14/2018 Episodic mood disorder (HCC) [F39] 08/14/2018 Convulsions (HCC) [R56.9] 09/23/2018 Other terminal carman (current) drug therapy [Z79.899]08/22/2018 Severe manic bipolar I disorder with psychotic *09/24/2018 Toxic effect of venom [T63.91XA] 11/28/2018 Myalgia [M79.10] 01/29/2019 Chronic pain syndrome [G89.4] 01/29/2019 Concentration deficit [R41.840] 01/29/2019 Screening for breast cancer [Z12.39] 01/29/2019 Bipolar disorder, current episode mixed, modera*04/08/2019 Intractable migraine without status migrainosus*04/08/2019 Intertrigo [L30.4] 04/08/2019 Dyslipidemia [E78.5] 01/14/2020 IFG (impaired fasting glucose) [R73.01] 01/14/2020 Prescriptions ordered this encounter Disp Refills Start End GABAPENTIN 100 MG CAPSULE 90 c* 1 02/06/2020 05/14/2020 Route: ORAL Sig: Take 1 capsule by mouth three times daily for 98 days. Medications Discontinued During This Encounter gabapentin (NEURONTIN) 100 mg capsule 90 c* 1 11/21/20192019 Route: ORAL Sig: Take 1 capsule by mouth three times daily for 98 days. Disc: Reason for discontinue is not on file. Encounter Status:Closed by RA GALVEZ DO on 02/06/20 obsolete on 2020-01 OBSOLETE Refill (FAMPWS) Normal 01-30-[address] [facility] PENNYDellMerylBHAVESH Valeri ([id number]) 1975 [facility] Date Time Provider Department ([id number]) 01/30/20 RA GALVEZ FAMPWS During your visit today, we recorded the following informati on about you: Von Livingston LPN 02/02/2020 12:14 PM Signed See message. Allergies As of Date: 01/30/2020 Noted Allergy Reaction BETA BLOCKERS (BETA-BLOCKERS (BET*2013 15 - Contraindication-Medical Sharma* Comments: Avoid use of beta blockers and KERRIE inhibitors sinc e patient is on venom immunotherapy KERRIE INHIBITORS 11/02/2014 15 - Contraindication-Medical Sharma* Comments: Avoid use of beta blockers and KERRIE inhibitors sinc e patient is on venom immunotherapy Environmental Allergies [Other] 12/25/2006 Comments: Grasses, molds, dust mites, cats, cockroaches LEXAPRO (ESCITALOPRAM OXALATE) 10/30/2018 5 - Intolerance Comments: altered mood PROZAC (FLUOXETINE HCL) 10/30/2018 5 - Intolerance Comments: altered mood TRINTELLIX (VORTIOXETINE) 01/08/2020 1 - Mental Status Carbajal e VENOM-WASP 09/26/2007 VENOM-YELLOW HORNET 09/26/2007 16 - Unknown Comments: Yellow and white faced hornet VENOM-YELLOW JACKET PROTEIN 09/26/2007 WELLBUTRIN (BUPROPION HCL) 05/08/2019 2 - Rash Comments: Agitation ZOLOFT (SERTRALINE HCL) 10/30/2018 5 - Intolerance Comments: altered mood Date Reviewed: 01/14/2020 Reviewed by: Martha Cobian LPN - Fully Assessed Reason for Visit: Refill Request [94] Prescriptions as of 01/30/2020 Sig: MAGNESIUM OXIDE 500 MG TABLET Take 1 tablet by mouth once d* X MAGNESIUM 250 MG TABLET Take 1 tablet by mouth once d* FLUTICASONE PROPIONATE 115 MC* Inhale 2 Puffs as instructed * MELOXICAM 15 MG TABLET Take 0.5-1 tablets by mouth o* NYSTATIN 100,000 UNIT/GRAM TO* Apply 1 application to affect * PRODIGEN 31 BILLION CELL CAPS* Take 1 capsule by mouth daily * OYSCO-500 500 MG CALCIUM (1,* Take 1 tablet by mouth twice * GABAPENTIN 100 MG CAPSULE Take 1 capsule by mouth three* GOLD SOLANO MEDICATED BABY 79 %* Apply 1 application to affect * Patient taking differently: Apply 1 application to affect* SYMBICORT 160 MCG-4.5 MCG/ACT* Inhale 2 Puffs as instructed * CYCLOBENZAPRINE 10 MG TABLET Take 1 tablet by mouth three * ALBUTEROL SULFATE 2.5 MG/3 ML* Use 3 mL via nebulizer every * DEXTROAMPHETAMINE-AMPHETAMINE* Take 20 mg by mouth once ngozi * FAMOTIDINE 20 MG TABLET Take 1 tablet by mouth twice * CALCIUM CARBONATE 500 MG (1,2* Take 1 tablet by mouth twice * B-COMPLEX WITH VITAMIN C TABL* Take 1 tablet by mouth once d * CHOLECALCIFEROL (VITAMIN D3) * Take 1 tablet by mouth once d * LACTOBACILLUS RHAMNOSUS GG-LA* Take 1 capsule by mouth daily * ALBUTEROL SULFATE HFA 90 MCG/* Inhale 2 Puffs as instructed * LORAZEPAM 0.5 MG TABLET Take by mouth at bedtime as n* TRIAMCINOLONE ACETONIDE 55 MC* Use 2 Sprays in each nostril * AZELASTINE 137 MCG (0.1 %) NA* Use 2 Sprays in each nostril * GUAIFENESIN ER 600 MG TABLET,* Take 2 tablets by mouth twice * CETIRIZINE 10 MG TABLET Take 1 tablet by mouth once d* KETOTIFEN 0.025 % (0.035 %) E* One drop to each eye 2 to 3 t * RIZATRIPTAN 10 MG TABLET Take 1 tablet by mouth as nee* AMITRIPTYLINE 50 MG TABLET Take 50 mg by mouth daily at * TOPIRAMATE 50 MG TABLET Take 50 mg by mouth twice mara* ZIPRASIDONE 40 MG CAPSULE Take 40 mg by mouth daily wit* VITAMIN B COMPLEX TABLET Take 1 tablet by mouth once d* EPINEPHRINE 0.3 MG/0.3 ML INJ* Inject 0.3 mL intramuscularly * Problem List As Of Date 01/30/2020 Noted Resolved ASTHMA UNSPECIFIED [J45.909] 11/02/2014 Allergic rhinitis due to fungal spores [J30.89] More... Obesity, Class III, BMI 40-49.9 (morbid obesity*11/21/2006 Obstructive sleep apnea [G47.33] 08/19/2007 Toxic effect of venom [T63.91XA] 09/23/2007 11/28/2018 Moderate persistent asthma [J45.40] 11/02/2014 Allergic rhinitis due to dust mite [J30.89] 01/24/2018 Allergic rhinitis due to cat hair [J30.81] 01/24/2018 Seasonal allergic rhinitis due to pollen [J30.1]01/24/2018 Right ureteral calculus [N20.1] 02/15/2018 More... Nonspecific paroxysmal spell [R40.4] 08/14/2018 09/24/2018 Psychogenic nonepileptic seizure [F44.5] 08/14/2018 Transient alteration of awareness [R40.4] 08/14/2018 018 Concern about neurological disease without diag*08/14/2018 1 11/24/2017 Psychosocial stressors [Z65.8] 08/14/2018 Episodic mood disorder (HCC) [F39] 08/14/2018 Convulsions (HCC) [R56.9] 09/23/2018 Other terminal carman (current) drug therapy [Z79.899]08/22/2018 Severe manic bipolar I disorder with psychotic *09/24/2018 Toxic effect of venom [T63.91XA] 11/28/2018 Myalgia [M79.10] 01/29/2019 Chronic pain syndrome [G89.4] 01/29/2019 Concentration deficit [R41.840] 01/29/2019 Screening for breast cancer [Z12.39] 01/29/2019 Bipolar disorder, current episode mixed, modera*04/08/2019 Intractable migraine without status migrainosus*04/08/2019 Intertrigo [L30.4] 04/08/2019 Dyslipidemia [E78.5] 01/14/2020 IFG (impaired fasting glucose) [R73.01] 01/14/2020 Encounter Status:Closed by VON LIVINGSTON LPN on 02/02/20 cnov on 2020-01-28 CNOV Office Visit (FAMPWS) Normal 01-28-[address] [facility] BHAVESH BEAULIEU ([id number]) 1975 [facility] Date Time Provider Department ([id number]) 01/28/20 11:00 AM [facility] NURSE WSTR FAMPWS During your visit today, we recorded the following informati on about you: Marie Angel LPN 01/28/2020 11:23 AM Signed Pt identified by name and birthdate. Allergy injections given subcutaneously. January 28, 2020 11:17 AM Patient states they did not take antihistamine. Immunotherapy Order written on: 09/04/[address] Ramirez Arboleda [phone] If patient has asthma, patient states symptoms controlled: Y es Patient did not report a recent illness. Patient on Beta chaim:No Patient has their Epi pen with them, Yes Vial A Content: MIXED VESPID Patient did not have a large late local reaction to previous injection. Size of reaction na Concentration: 100 mcg Dose: 1 ml SQ Arm: left upper arm (proximal) Reaction after 30 minutes: None Vial B Content: WASP Patient did not have a large late local reaction to previous injection. Size of reaction na Concentration: 100 mcg Dose: 1 ml SQ Arm: left upper arm (proximal) Reaction after 30 minutes: None Previously instructed about signs and symptoms of local and systemic reactions. Appointment line and nurses station numb er given as well as injection times at administering location. Marie Angel LPN IT Check completed. Referring Provider: RAMIREZ BLOCK [[id number]] Allergies As of Date: 01/28/2020 Noted Allergy Reaction BETA BLOCKERS (BETA-BLOCKERS (BET*2013 15 - Contraindication-Medical Sharma* Comments: Avoid use of beta blockers and KERRIE inhibitors sinc e patient is on venom immunotherapy KERRIE INHIBITORS 11/02/2014 15 - Contraindication-Medical Sharma* Comments: Avoid use of beta blockers and KERRIE inhibitors sinc e patient is on venom immunotherapy Environmental Allergies [Other] 12/25/2006 Comments: Grasses, molds, dust mites, cats, cockroaches LEXAPRO (ESCITALOPRAM OXALATE) 10/30/2018 5 - Intolerance Comments: altered mood PROZAC (FLUOXETINE HCL) 10/30/2018 5 - Intolerance Comments: altered mood TRINTELLIX (VORTIOXETINE) 01/08/2020 1 - Mental Status Carbajal e VENOM-WASP 09/26/2007 VENOM-YELLOW HORNET 09/26/2007 16 - Unknown Comments: Yellow and white faced hornet VENOM-YELLOW JACKET PROTEIN 09/26/2007 WELLBUTRIN (BUPROPION HCL) 05/08/2019 2 - Rash Comments: Agitation ZOLOFT (SERTRALINE HCL) 10/30/2018 5 - Intolerance Comments: altered mood Date Reviewed: 01/14/2020 Reviewed by: Martha Cobian LPN - Fully Assessed Reason for Visit: Allergy Injection [1369] Primary Visit Diagnosis:Toxic effect of venom, accidental or unintentional, subsequent encounter [T63.91XD] Prescriptions as of 01/28/2020 Sig: FLUTICASONE PROPIONATE 115 MC* Inhale 2 Puffs as instructed * MELOXICAM 15 MG TABLET Take 0.5-1 tablets by mouth o* NYSTATIN 100,000 UNIT/GRAM TO* Apply 1 application to affect * PRODIGEN 31 BILLION CELL CAPS* Take 1 capsule by mouth daily * OYSCO-500 500 MG CALCIUM (1,* Take 1 tablet by mouth twice * GABAPENTIN 100 MG CAPSULE Take 1 capsule by mouth three* GOLD SOLANO MEDICATED BABY 79 %* Apply 1 application to affect * Patient taking differently: Apply 1 application to affect* SYMBICORT 160 MCG-4.5 MCG/ACT* Inhale 2 Puffs as instructed * CYCLOBENZAPRINE 10 MG TABLET Take 1 tablet by mouth three * ALBUTEROL SULFATE 2.5 MG/3 ML* Use 3 mL via nebulizer every * DEXTROAMPHETAMINE-AMPHETAMINE* Take 20 mg by mouth once ngozi * FAMOTIDINE 20 MG TABLET Take 1 tablet by mouth twice * CALCIUM CARBONATE 500 MG (1,2* Take 1 tablet by mouth twice * B-COMPLEX WITH VITAMIN C TABL* Take 1 tablet by mouth once d * CHOLECALCIFEROL (VITAMIN D3) * Take 1 tablet by mouth once d * MAGNESIUM 250 MG TABLET Take 1 tablet by mouth once d* LACTOBACILLUS RHAMNOSUS GG-LA* Take 1 capsule by mouth daily * ALBUTEROL SULFATE HFA 90 MCG/* Inhale 2 Puffs as instructed * LORAZEPAM 0.5 MG TABLET Take by mouth at bedtime as n* TRIAMCINOLONE ACETONIDE 55 MC* Use 2 Sprays in each nostril * AZELASTINE 137 MCG (0.1 %) NA* Use 2 Sprays in each nostril * GUAIFENESIN ER 600 MG TABLET,* Take 2 tablets by mouth twice * CETIRIZINE 10 MG TABLET Take 1 tablet by mouth once d* KETOTIFEN 0.025 % (0.035 %) E* One drop to each eye 2 to 3 t * RIZATRIPTAN 10 MG TABLET Take 1 tablet by mouth as nee* AMITRIPTYLINE 50 MG TABLET Take 50 mg by mouth daily at * TOPIRAMATE 50 MG TABLET Take 50 mg by mouth twice mara* ZIPRASIDONE 40 MG CAPSULE Take 40 mg by mouth daily wit* VITAMIN B COMPLEX TABLET Take 1 tablet by mouth once d* EPINEPHRINE 0.3 MG/0.3 ML INJ* Inject 0.3 mL intramuscularly * Problem List As Of Date 01/28/2020 Noted Resolved ASTHMA UNSPECIFIED [J45.909] 11/02/2014 Allergic rhinitis due to fungal spores [J30.89] More... Obesity, Class III, BMI 40-49.9 (morbid obesity*11/21/2006 Obstructive sleep apnea [G47.33] 08/19/2007 Toxic effect of venom [T63.91XA] 09/23/2007 11/28/2018 Moderate persistent asthma [J45.40] 11/02/2014 Allergic rhinitis due to dust mite [J30.89] 01/24/2018 Allergic rhinitis due to cat hair [J30.81] 01/24/2018 Seasonal allergic rhinitis due to pollen [J30.1]01/24/2018 Right ureteral calculus [N20.1] 02/15/2018 More... Nonspecific paroxysmal spell [R40.4] 08/14/2018 09/24/2018 Psychogenic nonepileptic seizure [F44.5] 08/14/2018 Transient alteration of awareness [R40.4] 08/14/2018 018 Concern about neurological disease without diag*08/14/2018 1 11/24/2017 Psychosocial stressors [Z65.8] 08/14/2018 Episodic mood disorder (HCC) [F39] 08/14/2018 Convulsions (HCC) [R56.9] 09/23/2018 Other group home (current) drug therapy [Z79.899]08/22/2018 Severe manic bipolar I disorder with psychotic *09/24/2018 Toxic effect of venom [T63.91XA] 11/28/2018 Myalgia [M79.10] 01/29/2019 Chronic pain syndrome [G89.4] 01/29/2019 Concentration deficit [R41.840] 01/29/2019 Screening for breast cancer [Z12.39] 01/29/2019 Bipolar disorder, current episode mixed, modera*04/08/2019 Intractable migraine without status migrainosus*04/08/2019 Intertrigo [L30.4] 04/08/2019 Dyslipidemia [E78.5] 01/14/2020 IFG (impaired fasting glucose) [R73.01] 01/14/2020 Visit Notes: >> Marie Angel LPN SunJan 28, 2020 11:17 AM Status: Sig santos Pt identified by name and birthdate. Allergy injections given subcutaneously. January 28, 2020 11:17 AM Patient states they did not take antihistamine. Immunotherapy Order written on: 09/04/[address] Ramirez Seg[place] [phone] If patient has asthma, patient states symptoms controlled: Y es Patient did not report a recent illness. Patient on Beta chaim:No Patient has their Epi pen with them, Yes Vial A Content: MIXED VESPID Patient did not have a large late local reaction to previous injection. Size of reaction na Concentration: 100 mcg Dose: 1 ml SQ Arm: left upper arm (proximal) Reaction after 30 minutes: None Vial B Content: WASP Patient did not have a large late local reaction to previous injection. Size of reaction na Concentration: 100 mcg Dose: 1 ml SQ Arm: left upper arm (proximal) Reaction after 30 minutes: None Previously instructed about signs and symptoms of local and systemic reactions. Appointment line and nurses station number given as well as injection times at administering location. Marie Angel LPN IT Check completed. Encounter Status:Closed by MARIE ANGEL LPN on 01/28/20 cnpn on 2020-01-27 CNPN Telephone ([id number]) Normal 01-27-[address] [facility] LITABHAVESH DUTTON ([id number]) 1975 [facility] Date Time Provider Department ([id number]) 01/27/20 RAMIREZ BLOCK ALLJULIA During your visit today, we recorded the following informati on about you: Aswhini Chu RN 01/27/2020 10:16 AM Signed Kasie SWIFT initiated via covermymeds. Ashwini Chu RN 01/27/2020 10:58 AM Signed JAMISON approved. Approvedtoday 27-JAN-20:25-JAN-21 Kasie [facility] 115-21MCG/ACT IN AERO Quantit y 1 JAMISON Ashwini Chu RN 01/27/2020 10:59 AM Signed Patient aware via . Allergies As of Date: 01/27/2020 Noted Allergy Reaction BETA BLOCKERS (BETA-BLOCKERS (BET*2013 15 - Contraindication-Medical Sharma* Comments: Avoid use of beta blockers and KERRIE inhibitors sinc e patient is on venom immunotherapy KERRIE INHIBITORS 11/02/2014 15 - Contraindication-Medical Sharma* Comments: Avoid use of beta blockers and KERRIE inhibitors sinc e patient is on venom immunotherapy Environmental Allergies [Other] 12/25/2006 Comments: Grasses, molds, dust mites, cats, cockroaches LEXAPRO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 Medications Medication Sig - PRODIGEN 31 billion cell cap Take 1 capsule by mouth daily at bedtime. - OYSCO-500 500 mg calcium ( 1,250 mg) tablet Take 1 tablet by mouth twice daily with meals. - gabapentin (NEURONTIN) 100 mg capsule Take 1 capsule by mouth three times daily for 98 days. - [place] Bbaito-Heoyuj-Gozk Ox yanna (GOLD SOLANO MEDICATED BABY) 79-4-15 % powd Apply 1 application to affected area twice daily as needed (inte rtrigo). (Patient taking differently: Apply 1 application to affected area twice daily as needed (intertrigo). Not medicated ) - budesonide-formoterol (SYMBICORT) 160-4.5 mcg/actuation in haler Inhale 2 Puffs as instructed twice daily. Use with spacer. Rins e mouth out after use. - cyclobenzaprine (FLEXERIL) 10 mg tablet Take 1 table t by mouth three times daily as needed for Muscle Spasm. - fluticasone-salmeterol HFA (ADVAIR HFA) 115-21 mcg/actuation inhaler Inhale 2 Puffs as instructed twice daily. Use with spacer. Rins e mouth out after use. - albuterol (PROVENTIL) 2.5 mg /3 mL (0. 083 %) nebulizer solution Use 3 mL via nebulizer every 4 hours as needed for Wheezing/Shortness of Breath. 1 vial contains 3 ml. - amphetamine-dextroamphetam ine XR (ADDERALL XR) 20 mg 24 hr capsule Take 20 mg by mouth once daily. - famotidine (PEPCID) 20 mg tablet Take 1 tablet by mouth tw ice daily. - jqnkanh-nnjkqazio-tchmcxa D3 (CALCIUM 500+D) 500 mg( 1,250mg) -200 unit per tablet Take 1 tablet by mouth twice daily with meals. - B-complex with vitamin C (ALLBEE WITH C) table t Take 1 tablet by mouth once daily. - cholecalciferol (VITAMIN D3) 2,000 unit tablet Take 1 tablet by mouth once daily. - Magnesium 250 mg tab Take 1 tablet by mouth once daily. - L. rhamnosus-L. reuteri (REPHRESH PRO- B) 2.5 billion cell cap Take 1 capsule by mouth daily at bedtime. - albuterol HFA (VENTOLIN HFA) 90 mcg/actuation inhaler Inha le 2 Puffs as instructed every 4 hours as needed. - LORazepam (ATIVAN) 0.5 mg tab Take by mouth at bedtime as needed. - triamcinolone acetonide (NASACORT AQ) 55 mcg nasal i nhaler Use 2 Sprays in each nostril every morning. - azelastine (ASTELIN,ASTEPRO) 0.1% nasal spray Use 2 Sprays in each nostril daily at bedtime. - guaiFENesin (MUCINEX) 600 mg 12 hr tablet Take 2 tablets by mouth twice daily as needed. - cetirizine (ZYRTEC) 10 mg tablet Take 1 tablet by mouth once daily as needed. - ketotifen fumarate (ZADITOR) 0.025 % (0.035 %) ophthalmic solution One drop to each eye 2 to 3 times a day as needed. - rizatriptan (MAXALT) 10 mg tablet Take 1 tablet by mouth a s needed for Migraine Headache (see administration instructio ns). May repeat in 2 hours if needed - topiramate (TOPAMAX) 50 mg tablet Take 50 mg by mouth twic e daily. - ziprasidone (GEODON) 40 mg capsule Take 40 mg by mouth d aily with dinner. - vitamin b complex (B COMPLETE) tab Take 1 tablet by mouth once daily. - EPINEPHrine (EPIPEN) 0.3 mg/0.3 mL auto-injector Inject 0. 3 mL intramuscularly as needed (for allergic reaction.Seek [facility] care immediately after use.Disp:one 2-pack w/education trainer). - amoxicillin-clavulanic acid (AUGMENTIN) 875-12 5 mg per tablet Take 1 tablet by mouth twice daily for 10 days. - meloxicam (MOBIC) 15 mg tablet Take 0.5-1 tablets by marianne th once daily. As needed for pain, Take with food. - fluconazole (DIFLUCAN) 100 mg tablet T joshua 1 tablet by mouth once daily for 3 days. - nystatin (MYCOSTATIN) powder Apply 1 a pplication to affected area four times daily. As needed for yeast rash - amitriptyline (ELAVIL) 50 mg tablet Take 50 mg by mouth daily at bedtime. No current facility-administered medications for this visit. ALLERGIES Allergen Reactions - Beta Blockers [Beta* Contraindication-Medical Surgical Avoid use of beta blockers and KERRIE inhibitors since patient is on venom immunotherapy - Kerrie Inhibitors Contraindication-Medical Surgical Avoid use of beta blockers and KERRIE inhibitors since patient is on venom immunotherapy - Environmental Aller* Grasses, molds, dust mites, cats, cockroaches - Lexapro [Escitalopr* Intolerance altered mood - Prozac [Fluoxetine * Intolerance altered mood - Trintellix [Vortiox* Mental Status Change - Venom-Wasp - Venom-Yellow Hornet Unknown Yellow and white faced hornet - Venom-Yellow Jacket* - Wellbutrin [Bupropi* Rash Agitation - Zoloft [Sertraline * Intolerance altered mood Social History Tobacco Use - Smoking status: Never Smoker - Smokeless tobacco: Never Used Substance Use Topics - Alcohol use: No Frequency: Monthly or less Drinks per session: 1 or 2 Binge frequency: Never - Drug use: No ROS: See HPI PE: BP 130/86 Pulse 80 Temp (Src) 98.2 (Right Ty mpanic) Resp 20 Wt 260 lb (117.9kg) ? Gen: AANDOX3, NAD, non-toxic appearing, slightly disheveled appearing, obese, fatigued HEENT: PERRLA, EOMs intact b/l, nares without drainage, phar ynx without erythema, exudate, lesions, + yellow post nasal drainage. Uvula midline. MMM, sinus TTP right Neck: No LAD, no thyromegaly, no meningismus. CV: RRR, no murmur Lungs: CTA b/l, no wheezing Skin: No rashes, lesions, or wounds on exposed skin.? No edema, normal pulses Appropriate answers to questions ASSESSMENT/PLAN: 1. Acute non-recurrent maxillary sinusitis - ICD9: 461.0, IC D10: J01.00 (primary diagnosis) - Will begin treatment with as per antibiotic as written, se e orders - AMOXICILLIN 875 MG-POTASSIUM CLAVULANATE 125 MG TABLET 2. IFG (impaired fasting glucose) - ICD9: 790.21, ICD10: R73 .01 - HGB A1C - COMP METABOLIC PANEL - CBC + DIFF 3. Dyslipidemia - ICD9: 272.4, ICD10: E78.5 - LIPID PANEL BASIC 4. Myalgia - ICD9: 729.1, ICD10: M79.10 - chronic, secondary to FM, no new changes. 5. Intertrigo - ICD9: 695.89, ICD10: L30.4 - rx as below as well as nystatin powder - FLUCONAZOLE 100 MG TABLET 6. Screening for breast cancer - ICD9: V76.10, ICD10: Z12.39 - Set up for mammogram, yearly mammogram recommended - Encouraged monthly BSE - CHUCKY SCREENING W ANGIE 7. Bipolar disorder, current episode mixed, moderate (HCC) - ICD9: 296.62, ICD10: F31.62 - f/u with psychologist, nara chiatrist, definitely influences her overall health Ra Galvez DO Return if no improvement. Follow up with Ra Galvez DO. To ER if develops chest pain, shortness of breath Discussed risks, benefits, alternatives, and potential side effects of medications. Patient/Guardian expressed understanding and agreed with the plan. See patient instructions. Ra Galvez DO [address] [place] [address] Referring Provider: RA GALVEZ [[id number]] Allergies As of Date: 01/14/2020 Noted Allergy Reaction BETA BLOCKERS (BETA-BLOCKERS (BET*2013 15 - Contraindication-Medical Sharma* Comments: Avoid use of beta blockers and KERRIE inhibitors sin e patient is on venom immunotherapy KERRIE INHIBITORS 11/02/2014 15 - Contraindication-Medical Sharma* Comments: Avoid use of beta blockers and KERRIE inhibitors sin e patient is on venom immunotherapy Environmental Allergies [Other] 12/25/2006 Comments: Grasses, molds, dust mites, cats, cockroaches LEXAPRO (ESCITALOPRAM OXALATE) 10/30/2018 5 - Intolerance Comments: altered mood PROZAC (FLUOXETINE HCL) 10/30/2018 5 - Intolerance Comments: altered mood TRINTELLIX (VORTIOXETINE) 01/08/2020 1 - Mental Status Carbajal e VENOM-WASP 09/26/2007 VENOM-YELLOW HORNET 09/26/2007 16 - Unknown Comments: Yellow and white faced hornet VENOM-YELLOW JACKET PROTEIN 09/26/2007 WELLBUTRIN (BUPROPION HCL) 05/08/2019 2 - Rash Comments: Agitation ZOLOFT (SERTRALINE HCL) 10/30/2018 5 - Intolerance Comments: altered mood Date Reviewed: 01/14/2020 Reviewed by: Martha Cobian LPN - Fully Assessed Reason for Visit: Follow Up [171] Cmt: 6 months Primary Visit Diagnosis:Acute non-recurrent maxillary sinusi tis [J01.00] Other Visit Diagnoses:IFG (impaired fasting glucose) [R73.01 ] Dyslipidemia [E78.5] Myalgia [M79.10] Intertrigo [L30.4] Screening for breast cancer [Z12.39] Bipolar disorder, current episode mixed, moderate (HCC) [F31.62] Order(s):amoxicillin-clavulanic acid (AUGMENTIN) 875-1 25 mg per tabletTake 1 tablet by mouth twice daily for 10 days.Disp: 20 tabletRfl: 0 HGB A1C [XFNYL1X] Order #: [id number] FUTURE LIPID PANEL BASIC [SQLIPB] Order #: [id number] FUTURE COMP METABOLIC PANEL [SQCMP] Order #: [id number] FUTURE CBC + DIFF [SQCBCDIF] Order #: [id number] FUTURE meloxicam (MOBIC) 15 mg tabletTake 0.5-1 tablets by mouth on ce daily. As needed for pain, Take with food.Disp: 90 tabletRfl: 1 fluconazole (DIFLUCAN) 100 mg tabletTake 1 tablet by mouth o nce daily for 3 days.Disp: 3 tabletRfl: 0 nystatin (MYCOSTATIN) powderApply 1 application to affected area four times daily. As needed for yeast rashDisp: 1 BottleRfl: 1 CHUCKY SCREENING W ANGIE [[id number]] Order #: [id number] FUTURE Prescriptions as of 01/14/2020 Sig: PRODIGEN 31 BILLION CELL CAPS* Take 1 capsule by mouth daily * OYSCO-500 500 MG CALCIUM (1,* Take 1 tablet by mouth twice * GABAPENTIN 100 MG CAPSULE Take 1 capsule by mouth three* GOLD SOLANO MEDICATED BABY 79 %* Apply 1 application to affect * Patient taking differently: Apply 1 application to affect* SYMBICORT 160 MCG-4.5 MCG/ACT* Inhale 2 Puffs as instructed * CYCLOBENZAPRINE 10 MG TABLET Take 1 tablet by mouth three * FLUTICASONE PROPIONATE 115 MC* Inhale 2 Puffs as instructed * ALBUTEROL SULFATE 2.5 MG/3 ML* Use 3 mL via nebulizer every * DEXTROAMPHETAMINE-AMPHETAMINE* Take 20 mg by mouth once ngozi * FAMOTIDINE 20 MG TABLET Take 1 tablet by mouth twice * CALCIUM CARBONATE 500 MG (1,2* Take 1 tablet by mouth twice * B-COMPLEX WITH VITAMIN C TABL* Take 1 tablet by mouth once d * CHOLECALCIFEROL (VITAMIN D3) * Take 1 tablet by mouth once d * MAGNESIUM 250 MG TABLET Take 1 tablet by mouth once d* LACTOBACILLUS RHAMNOSUS GG-LA* Take 1 capsule by mouth daily * ALBUTEROL SULFATE HFA 90 MCG/* Inhale 2 Puffs as instructed * LORAZEPAM 0.5 MG TABLET Take by mouth at bedtime as n* TRIAMCINOLONE ACETONIDE 55 MC* Use 2 Sprays in each nostril * AZELASTINE 137 MCG (0.1 %) NA* Use 2 Sprays in each nostril * GUAIFENESIN ER 600 MG TABLET,* Take 2 tablets by mouth twice * CETIRIZINE 10 MG TABLET Take 1 tablet by mouth once d* KETOTIFEN 0.025 % (0.035 %) E* One drop to each eye 2 to 3 t * RIZATRIPTAN 10 MG TABLET Take 1 tablet by mouth as nee* TOPIRAMATE 50 MG TABLET Take 50 mg by mouth twice mara* ZIPRASIDONE 40 MG CAPSULE Take 40 mg by mouth daily wit* VITAMIN B COMPLEX TABLET Take 1 tablet by mouth once d* EPINEPHRINE 0.3 MG/0.3 ML INJ* Inject 0.3 mL intramuscularly * AMOXICILLIN 875 MG-POTASSIUM * Take 1 tablet by mouth twice * MELOXICAM 15 MG TABLET Take 0.5-1 tablets by mouth o* FLUCONAZOLE 100 MG TABLET Take 1 tablet by mouth once d* NYSTATIN 100,000 UNIT/GRAM TO* Apply 1 application to affect * AMITRIPTYLINE 50 MG TABLET Take 50 mg by mouth daily at * Problem List As Of Date 01/14/2020 Noted Resolved ASTHMA UNSPECIFIED [J45.909] 11/02/2014 Allergic rhinitis due to fungal spores [J30.89] More... Obesity, Class III, BMI 40-49.9 (morbid obesity*11/21/2006 Obstructive sleep apnea [G47.33] 08/19/2007 Toxic effect of venom [T63.91XA] 09/23/2007 11/28/2018 Moderate persistent asthma [J45.40] 11/02/2014 Allergic rhinitis due to dust mite [J30.89] 01/24/2018 Allergic rhinitis due to cat hair [J30.81] 01/24/2018 Seasonal allergic rhinitis due to pollen [J30.1]01/24/2018 Right ureteral calculus [N20.1] 02/15/2018 More... Nonspecific paroxysmal spell [R40.4] 08/14/2018 09/24/2018 Psychogenic nonepileptic seizure [F44.5] 08/14/2018 Transient alteration of awareness [R40.4] 08/14/2018 018 Concern about neurological disease without diag*08/14/2018 1 11/24/2017 Psychosocial stressors [Z65.8] 08/14/2018 Episodic mood disorder (HCC) [F39] 08/14/2018 Convulsions (HCC) [R56.9] 09/23/2018 Other group home (current) drug therapy [Z79.899]08/22/2018 Severe manic bipolar I disorder with psychotic *09/24/2018 Toxic effect of venom [T63.91XA] 11/28/2018 Myalgia [M79.10] 01/29/2019 Chronic pain syndrome [G89.4] 01/29/2019 Concentration deficit [R41.840] 01/29/2019 Screening for breast cancer [Z12.39] 01/29/2019 Bipolar disorder, current episode mixed, modera*04/08/2019 Intractable migraine without status migrainosus*04/08/2019 Intertrigo [L30.4] 04/08/2019 Dyslipidemia [E78.5] 01/14/2020 IFG (impaired fasting glucose) [R73.01] 01/14/2020 Prescriptions ordered this encounter Disp Refills Start End AMOXICILLIN 875 MG-POTASSIUM CLAVULA* 20 t* 0 01/14/202005/2020 Route: ORAL Sig: Take 1 tablet by mouth twice daily for 10 days. MELOXICAM 15 MG TABLET 90 t* 1 01/14/2020 Route: ORAL Sig: Take 0.5-1 tablets by mouth once daily. As needed for p ain, Take with food. FLUCONAZOLE 100 MG TABLET 3 ta* 0 01/14/2020 01/17/2020 Route: ORAL Sig: Take 1 tablet by mouth once daily for 3 days. NYSTATIN 100,000 UNIT/GRAM TOPICAL P* 1 Bacilio* 1 01/14/2020 Route: TOPICAL Sig: Apply 1 application to affected area four times daily. As needed for yeast rash Medications Discontinued During This Encounter naproxen (NAPROSYN) 500 mg tablet 60 t* 4 07/14/2019 0 Route: ORAL Sig: Take 1 tablet by mouth twice daily as needed. Disc: Reason for discontinue is not on file. Encounter Status:Closed by RA GALVEZ DO on 01/14/20 cbc and differential on 2020-01-14 Abs Baso 0.06 <0.11 k/uL Normal 01-14-2020 [facility] ([id number]) Comment: Performed By: #### HBA1C, CB CDIF, CMP, LIPB ####[place] [address] [place] [phone] Abs Campbell 0.42 <0.87 k/uL Normal 01-14-2020 [facility] ([id number]) Comment: Performed By: #### HBA1C, CB CDIF, CMP, LIPB ####[facility] [address] [place] [phone] Abs Neut 4.16 1.45-7.50 k/uL Normal 01-14-2020 [facility] ([id number]) Comment: Performed By: #### HBA1C, CB CDIF, CMP, LIPB ####[facility] [place] [phone] Absolute nRBC <0.01 <0.01 Normal 01-14-2020 [facility] ([id number]) Comment: Performed By: #### HBA1C, CB CDIF, CMP, LIPB ####[facility] [place] [phone] Basophils/100 WBC (Bld) 0.9 % Normal 2019 [facility] ([id number]) Comment: Performed By: #### HBA1C, CB CDIF, CMP, LIPB ####[facility] [place] [phone] DTYPE Auto Diff Normal 01-14-2020 [facility] ([id number]) Comment: Performed By: #### HBA1C, CB CDIF, CMP, LIPB ####[facility] [place] [phone] Eosinophils (Bld) [#/Vol] 0.12 <0.46 k/uL Normal 12-21 [facility] ([id number]) Comment: Performed By: #### HBA1C, CB CDIF, CMP, LIPB ####[facility] [place] [phone] Eosinophils/100 WBC (Bld) 1.9 % Normal 12-21 [facility] ([id number]) Comment: Performed By: #### HBA1C, CB CDIF, CMP, LIPB ####[place] [address] [place] [phone] Erythrocyte distribution 14.3 11.5-15.0 % Normal 01-14 [facility] width (RBC) [Ratio] Mckenna ([id number]) Comment: Performed By: #### HBA1C, CB CDIF, CMP, LIPB ####[facility] [place], [place] [phone] Hematocrit (Bld) [Volume 43.1 36.0-46.0 % Normal 01-14 [facility] fraction] Mckenna ([id number]) Comment: Performed By: #### HBA1C, CB CDIF, CMP, LIPB ####[facility] [place] [phone] Hemoglobin (Bld) 13.6 11.5-15.5 g/dL Normal 01-14-2020 [facility] [Mass/Vol] Mckenna ([id number]) Comment: Performed By: #### HBA1C, CB CDIF, CMP, LIPB ####[facility] [place] [phone] Lymphocytes (Bld) [#/Vol] 1.63 1.00-4.00 k/uL Normal 12-21 [facility] ([id number]) Comment: Performed By: #### HBA1C, CB CDIF, CMP, LIPB ####[facility] [address] [place], [place] [phone] Lymphocytes/100 WBC (Bld) 25.4 % Normal 12-21 [facility] ([id number]) Comment: Performed By: #### HBA1C, CB CDIF, CMP, LIPB ####[facility] [address] [place], [place] [phone] MCH (RBC) [Entitic mass] 30.7 26.0-34.0 pG Normal 01-14 [facility] ([id number]) Comment: Performed By: #### HBA1C, CB CDIF, CMP, LIPB ####[facility] [place], [place] [phone] MCHC (RBC) [Mass/Vol] 31.6 30.5-36.0 g/dL Normal 01-14-20 [facility] ([id number]) Comment: Performed By: #### HBA1C, CB CDIF, CMP, LIPB ####[facility] [address] [place], [place] [phone] MCV (RBC) [Entitic vol] 97.3 80.0-100.0 fL Normal 01-14 [facility] ([id number]) Comment: Performed By: #### HBA1C, CB CDIF, CMP, LIPB ####[facility] [address] [place], [place] [phone] Monocytes/100 WBC (Bld) 6.6 % Normal 2019 [facility] ([id number]) Comment: Performed By: #### HBA1C, CB CDIF, CMP, LIPB ####[facility] [address] [place], [place] [phone] Neutrophils/100 WBC (Bld) 65.2 % Normal 12-21 [facility] ([id number]) Comment: Performed By: #### HBA1C, CB CDIF, CMP, LIPB ####[place] [address] [place], [place] [phone] NRBCs 0.0 0 /100 WBC Normal 01-14-2020 [facility] ([id number]) Comment: Performed By: #### HBA1C, CB CDIF, CMP, LIPB ####[place] [address] [place], [place] [phone] Platelet mean volume 10.5 9.0-12.7 fL Normal 0 [facility] (d) [Entitic vol] Mckenna ([id number]) Comment: Performed By: #### HBA1C, CB CDIF, CMP, LIPB ####[place] [address] [place], [place] [phone] Platelets (Bld) [#/Vol] 250 150-400 k/uL Normal 2019 [facility] ([id number]) Comment: Performed By: #### HBA1C, CB CDIF, CMP, LIPB ####[place] [address] [place], [place] [phone] RBC (Bld) [#/Vol] 4.43 3.90-5.20 m/uL Normal 01-14-2020 [facility] ([id number]) Comment: Performed By: #### HBA1C, CB CDIF, CMP, LIPB ####[place] [address] [place], [place] [phone] WBC (Bld) [#/Vol] 6.41 3.70-11.00 k/uL Normal 01-14-2020 [facility] ([id number]) Comment: Performed By: #### HBA1C, CB CDIF, CMP, LIPB ####[place] [id number] [place], [place] [phone] urine culture on 08-01-20 Bacteria Sp. Request/Comment: - Specimen received in preservative Critically 01-08-2020 Mckenna identified Cx Nom abnormal Cl inic (U) Culture Result - <10,000 CFU /ml Lactose negative gram negative bacilli --> ABNORMAL ALERT Insignificant colony count. No further workup. --> ABNORMAL ALERT Mckenna ([id number]) Comment: Performed By: #### URCUL ### #[facility] [address] [place], [place] [phone] progress on 2019-12 PROGRESS HNO ID: [id number] Normal 01-08-2020 [facility] Author: Nery Canela Mckenna ([id number]) Service: ? Author Type: Physician Type: Progress Notes Filed: 01/08/2020 2:35 PM Note Text: UROLOGY CLINIC 01/08/2020 CHIEF COMPLAINT: Renal calculi HPI: Bhavesh Beaulieu is a 44 year old female. Today She rep orts that she is feeling better and denies any pain or blood. She is asymp tomatic from a urological perspective. She denies any dysuria, hematuria, urinary leakage, urinary incontinence, abnormal urinary stream, nocturia, usage of pads, hesitancy, urgency, or modifying urologic factors. ROS: Denies any fevers, chills, nausea, vomiting, chest pain, cou gh, shortness of breath, easy bruising or bleeding, weight loss, night swe ats, malaise, new bone pain, hematochezia, melena, diarrhea, polydipsia, n eurological symptoms, focal weakness, new visual problems, dysphagia, or rashes. Remainder of ROS is reviewed and negative, except as noted i n the HPI. HISTORY: PAST MEDICAL HISTORY Diagnosis Date - Allergic rhinitis, cause unspecified Allergy, airborne subst - Anxiety and depression - Bee allergy status - Depression - Environmental allergies - GERD (gastroesophageal reflux disease) - Hypercholesteremia 11/2014 - Impaired fasting glucose - Migraines - Morbid obesity (HCC) - Obstructive sleep apnea DX 2006, not on CPAP since 06/2018 - Unspecified asthma(493.90) weather, allergy and exercise triggers - Vitamin D deficiency PAST SURGICAL HISTORY Procedure Laterality Date - DELIVERY ONLY 2001 , low cervical - LIGATE FALLOPIAN TUBE 2001 Tubal ligation - LITHOTRIPSY [facility] Right 02/18/2018 - STEREOTACTIC LOCALIZATION BREAST BIOPSY Right 05/26/2019 FAMILY HISTORY Problem Relation Age of Onset - Asthma Mother - Thyroid Mother - COPD Mother - other (depression) Mother - other (depression) Sister - Asthma Brother - Depression Brother - Diabetes Father - Hypertension Father - Diabetes Maternal Grandmother - Thyroid Maternal Grandmother - Cancer Maternal Grandfather unknown - Kidney Disease Paternal Grandmother - Cancer Paternal Grandfather - Asthma Daughter - Depression Daughter - Depression Daughter - other (ADD) Daughter Social History Tobacco Use - Smoking status: Never Smoker - Smokeless tobacco: Never Used Substance Use Topics - Alcohol use: No - Drug use: No ALLERGIES Allergen Reactions - Beta Blockers [Beta* Contraindication-Medical Surgical Avoid use of beta blockers and KERRIE inhibitors since patient is on venom immunotherapy - Kerrie Inhibitors Contraindication-Medical Surgical Avoid use of beta blockers and KERRIE inhibitors since patient is on venom immunotherapy - Environmental Aller* Grasses, molds, dust mites, cats, cockroaches - Lexapro [Escitalopr* Intolerance altered mood - Prozac [Fluoxetine * Intolerance altered mood - Venom-Wasp - Venom-Yellow Hornet Unknown Yellow and white faced hornet - Venom-Yellow Jacket* - Wellbutrin [Bupropi* Rash Agitation - Zoloft [Sertraline * Intolerance altered mood MEDICATIONS: Current Outpatient Medications Medication Sig Dispense Refill - PRODIGEN 31 billion cell cap Take 1 capsule by mouth daily at bedtime. - OYSCO-500 500 mg calcium (1,250 mg) tablet Take 1 tablet b y mouth twice daily with meals. - doxycycline monohydrate 100 mg tablet Take 1 tablet by marianne th twice daily for 10 days. 20 tablet 0 - gabapentin (NEURONTIN) 100 mg capsule Take 1 capsule by mo uth three times daily for 98 days. 90 capsule 1 - [place] Qzfkxn-Mknomc-Qfzr Oxide (GOLD SOLANO MEDICATED BABY) 7 9-4-15 % powd Apply 1 application to affected area twice daily as needed ( intertrigo). 1 Bottle 3 - budesonide-formoterol (SYMBICORT) 160-4.5 mcg/actuation in haler Inhale 2 Puffs as instructed twice daily. Use with spacer. Rinse mout h out after use. 1 Inhaler 11 - cyclobenzaprine (FLEXERIL) 10 mg tablet Take 1 tablet by out three times daily as needed for Muscle Spasm. 30 tablet 0 - fluticasone-salmeterol HFA (ADVAIR HFA) 115-21 mcg/actuati on inhaler Inhale 2 Puffs as instructed twice daily. Use with spacer. R inse mouth out after use. (Patient not taking: Reported on 12/30/2019 ) 1 Inhaler 11 - albuterol (PROVENTIL) 2.5 mg /3 mL (0.083 %) nebulizer estevan ution Use 3 mL via nebulizer every 4 hours as needed for Wheezing/Shortness of Breath. 1 vial contains 3 ml. 1 Package 1 - amphetamine-dextroamphetamine XR (ADDERALL XR) 20 mg 24 hr capsule Take 20 mg by mouth once daily. - famotidine (PEPCID) 20 mg tablet Take 1 tablet by mouth tw ice daily. 60 tablet 11 - ueiapjp-dgkovoqyk-qooaqgu D3 (CALCIUM 500+D) 500 mg(1,250m g) -200 unit per tablet Take 1 tablet by mouth twice daily with meals. 90 tablet 3 - naproxen (NAPROSYN) 500 mg tablet Take 1 tablet by mouth t wice daily as needed. 60 tablet 4 - B-complex with vitamin C (ALLBEE WITH C) tablet Take 1 tab let by mouth once daily. 90 tablet 3 - cholecalciferol (VITAMIN D3) 2,000 unit tablet Take 1 tabl et by mouth once daily. 90 tablet 3 - Magnesium 250 mg tab Take 1 tablet by mouth once daily. 90 tablet 3 - L. rhamnosus-L. reuteri (REPHRESH PRO-B) 2.5 billion cell cap Take 1 capsule by mouth daily at bedtime. (Patient not taking: Repo rted on 12/30/2019 ) 90 capsule 3 - albuterol HFA (VENTOLIN HFA) 90 mcg/actuation inhaler Inha le 2 Puffs as instructed every 4 hours as needed. 1 Inhaler 2 - LORazepam (ATIVAN) 0.5 mg tab Take by mouth at bedtime as needed. - triamcinolone acetonide (NASACORT AQ) 55 mcg nasal inhaler Use 2 Sprays in each nostril every morning. 1 Bottle 11 - azelastine (ASTELIN,ASTEPRO) 0.1% nasal spray Use 2 Sprays in each nostril daily at bedtime. 1 Bottle 11 - guaiFENesin (MUCINEX) 600 mg 12 hr tablet Take 2 tablets b y mouth twice daily as needed. 60 tablet 2 - cetirizine (ZYRTEC) 10 mg tablet Take 1 tablet by mouth on ce daily as needed. 30 tablet 11 - ketotifen fumarate (ZADITOR) 0.025 % (0.035 %) ophthalmic solution One drop to each eye 2 to 3 times a day as needed. 1 Bottle 11 - rizatriptan (MAXALT) 10 mg tablet Take 1 tablet by mouth a s needed for Migraine Headache (see administration instructions). May rep eat in 2 hours if needed 12 tablet 0 - amitriptyline (ELAVIL) 50 mg tablet Take 50 mg by mouth da jeri at bedtime. - topiramate (TOPAMAX) 50 mg tablet Take 50 mg by mouth twic e daily. - ziprasidone (GEODON) 40 mg capsule Take 40 mg by mouth mara ly with dinner. - vitamin b complex (B COMPLETE) tab Take 1 tablet by mouth once daily. 90 tablet 3 - EPINEPHrine (EPIPEN) 0.3 mg/0.3 mL auto-injector Inject 0. 3 mL intramuscularly as needed (for allergic reaction.Seek emerge nt medical care immediately after use.Disp:one 2-pack w/education trainer). 1 Eac h 1 No current facility-administered medications for this visit. PHYSICAL EXAM: GENERAL: Well developed, well nourished, healthy appearing a nd in no acute distress. HEENT: PERRLA. EOMI. MMM. RESP: NL effort, no retractions or purse-lip breathing. CV: No extremity swelling, varices, edema, pallor, erythema ABDOMEN: Soft, nontender, nondistended, no masses. Normal bacilio wel sounds. HERNIAS: None SKIN/LYMPH: No rash, lesions. No axillary or femoral lymphad enopathy. NEURO: Alert and oriented x3. Normal Speech. PSYCH: No signs of depression, anxiety, or agitation. EXTREMITIES: Extremities normal. No deformities, edema, club robert or skin discoloration. FROM. LABS: UA: trace Hgb, small wBC No results found for: PSA, PSAPER Creatinine (mg/dL) Date Value 07/14/2019 0.98 01/29/2019 0.94 09/23/2018 1.00 05/28/2018 0.94 03/08/2018 1.03 10/10/2016 0.86 03/25/2016 0.90 12/04/2014 0.76 IMAGING: KUB: 12/30/2019 IMPRESSION: No findings suspicious for urinary calculus. ?Pelvic calcifi cations compatible phleboliths and similar to prior study of 019 ASSESSMENT AND PLAN: This is a 44 year old female who presents to the office toda y for the above complaints. KUB reviewed with the pt - no calcifications in her urinary tract. UA shows trace Hgb and small WBCs. Urine culture ordered; wi ll contact the pt with the results and treat accordingly. KUB prior to follow up. Follow up in 6 months or sooner if she develops any concerni ng or worsening symptoms. All questions were answered satisfactorily for the patient. ATTESTATION: By signing my name below, I, Vinicio Treviño, attest that [facility] documentation has been prepared under the direction and in t he presence of Nery Canela MD. Electronically Signed:hugo Hutchinson, January 08 12:48 PM Provider Attestation: I, Dr. Nery Canela MD, personally performed the services described in this documentation. All medical record entries made by the trey chung were at my direction and in my presence. I have reviewed the chart a nd discharge instructions (if applicable) and agree that the record refle cts my personal performance and is accurate and complete. Dr. Ezra Canela MD. January 08, 2020 2:35 PM cnov on 2020-01-08 CNOV Office Visit ([facility]) Normal 01-08-20 Mckenna BHAVESH Garza ([id number]) 1975 F Mckenna Date Time Provider Department ([id number]) 01/08/20 1:45 PM NERY CANELA [facility] During your visit today, we recorded the following informati on about you: Nery Canela MD 01/08/2020 2:35 PM Signed UROLOGY CLINIC 01/08/2020 CHIEF COMPLAINT: Renal calculi HPI: Bhavesh Beaulieu is a 44 year old female. Today S he reports that she is feeling better and denies any pain or blood. She is asymptom atic from a urological perspective. She denies any dysuria, hematuria, urinary leakage, urinary incontinence, abnormal urinary stream, nocturia, usage of pads, hesitancy, urgency, or modifying urologic factors. ROS: Denies any fevers, chills, nausea, vomiting, chest domenica n, cough, shortness of breath, easy bruising or ble eding, weight loss, night sweats, malaise, new bone pain, hematochezia, melena, diarrhea, po lydipsia, neurological symptoms, focal weakness, new visual problems, dysphagia, or rashes. Remainder of ROS is reviewed and negative, except as noted i n the HPI. HISTORY: PAST MEDICAL HISTORY Diagnosis Date - Allergic rhinitis, cause unspecified Allergy, airborne subst - Anxiety and depression - Bee allergy status - Depression - Environmental allergies - GERD (gastroesophageal reflux disease) - Hypercholesteremia 11/2014 - Impaired fasting glucose - Migraines - Morbid obesity (HCC) - Obstructive sleep apnea DX 2006, not on CPAP since 06/2018 - Unspecified asthma(493.90) weather, allergy and exercise triggers - Vitamin D deficiency PAST SURGICAL HISTORY Procedure Laterality Date - DELIVERY ONLY 2001 , low cervical - LIGATE FALLOPIAN TUBE 2001 Tubal ligation - [facility]OTRIPSY [facility] Right 02/18/2018 - STEREOTACTIC LOCALIZATION BREAST BIOPSY Right 05/26/2019 FAMILY HISTORY Problem Relation Age of Onset - Asthma Mother - Thyroid Mother - COPD Mother - other (depression) Mother - other (depression) Sister - Asthma Brother - Depression Brother - Diabetes Father - Hypertension Father - Diabetes Maternal Grandmother - Thyroid Maternal Grandmother - Cancer Maternal Grandfather unknown - Kidney Disease Paternal Grandmother - Cancer Paternal Grandfather - Asthma Daughter - Depression Daughter - Depression Daughter - other (ADD) Daughter Social History Tobacco Use - Smoking status: Never Smoker - Smokeless tobacco: Never Used Substance Use Topics - Alcohol use: No - Drug use: No ALLERGIES Allergen Reactions - Beta Blockers [Beta* Contraindication-Medical Surgical Avoid use of beta blockers and KERRIE inhibitors since patient is on venom immunotherapy - Kerrie Inhibitors Contraindication-Medical Surgical Avoid use of beta blockers and KERRIE inhibitors since patient is on venom immunotherapy - Environmental Aller* Grasses, molds, dust mites, cats, cockroaches - Lexapro [Escitalopr* Intolerance altered mood - Prozac [Fluoxetine * Intolerance altered mood - Venom-Wasp - Venom-Yellow Hornet Unknown Yellow and white faced hornet - Venom-Yellow Jacket* - Wellbutrin [Bupropi* Rash Agitation - Zoloft [Sertraline * Intolerance altered mood MEDICATIONS: Current Outpatient Medications Medication Sig Dispense Refill - PRODIGEN 31 billion cell cap Take 1 capsule by mouth daily at bedtime. - OYSCO-500 500 mg calcium ( 1,250 mg) tablet Take 1 tablet by mouth twice daily with meals. - doxycycline monohydrate 100 mg tablet Take 1 tablet by mouth twice daily for 10 days. 20 tablet 0 - gabapentin (NEURONTIN) 100 mg capsule Take 1 capsule by mouth three times daily for 98 days. 90 capsule 1 - [place] Zqpnks-Nrxhdz-Cjzu Ox yanna (GOLD SOLANO MEDICATED BABY) 79-4-15 % powd Apply 1 application to affected area twice daily as ne eded (intertrigo). 1 Bottle 3 - budesonide-formoterol (SYMBICORT) 160-4.5 mcg/actuation in haler Inhale 2 Puffs as instructed twice daily. Use wit h spacer. Rinse mouth out after use. 1 Inhaler 11 - cyclobenzaprine (FLEXERIL) 10 mg tablet Take 1 table t by mouth three times daily as needed for Muscle Spasm. 30 tablet 0 - fluticasone-salmeterol HFA (ADVAIR HFA) 115-21 mcg/actuation inhaler Inhale 2 Puffs as instructed twice daily. Use with spacer. Rins e mouth out after use. (Patient not taking: Reported on 12/30/2019 ) 1 Inhaler 11 - albuterol (PROVENTIL) 2.5 mg /3 mL (0. 083 %) nebulizer solution Use 3 mL via nebulizer every 4 hours as needed for Wheezing/Shortness of Breath. 1 vial contains 3 ml. 1 Package 1 - amphetamine-dextroamphetam ine XR (ADDERALL XR) 20 mg 24 hr capsule Take 20 mg by mouth once daily. - famotidine (PEPCID) 20 mg tablet Take 1 tablet by mouth tw ice daily. 60 tablet 11 - pmftzfj-ztffllehi-ekkubki D3 (CALCIUM 500+D) 500 mg( 1,250mg) -200 unit per tablet Take 1 tablet by mouth twice daily with meals. 90 tab let 3 - naproxen (NAPROSYN) 500 mg tablet Take 1 tablet by mouth t wice daily as needed. 60 tablet 4 - B-complex with vitamin C (ALLBEE WITH C) table t Take 1 tablet by mouth once daily. 90 tablet 3 - cholecalciferol (VITAMIN D3) 2,000 unit tablet Take 1 tablet by mouth once daily. 90 tablet 3 - Magnesium 250 mg tab Take 1 tablet by mouth once daily. 90 tablet 3 - L. rhamnosus-L. reuteri (REPHRESH PRO- B) 2.5 billion cell cap Take 1 capsule by mouth daily at bedtime. (Patient not taking: Reported on 12/30/2019 ) 90 capsule 3 - albuterol HFA (VENTOLIN HFA) 90 mcg/actuation inhaler Inha le 2 Puffs as instructed every 4 hours as needed. 1 Inhaler 2 - LORazepam (ATIVAN) 0.5 mg tab Take by mouth at bedtime as needed. - triamcinolone acetonide (NASACORT AQ) 55 mcg nasal i nhaler Use 2 Sprays in each nostril every morning. 1 Bottle 11 - azelastine (ASTELIN,ASTEPRO) 0.1% nasal spray Use 2 Sprays in each nostril daily at bedtime. 1 Bottle 11 - guaiFENesin (MUCINEX) 600 mg 12 hr tablet Take 2 tablets by mouth twice daily as needed. 60 tablet 2 - cetirizine (ZYRTEC) 10 mg tablet Take 1 tablet by mouth once daily as needed. 30 tablet 11 - ketotifen fumarate (ZADITOR) 0.025 % (0.035 %) ophthalmic solution One drop to each eye 2 to 3 times a day as needed. 1 Bottle 11 - rizatriptan (MAXALT) 10 mg tablet Take 1 tablet by mouth a s needed for Migraine Headache (see administration instructio ns). May repeat in 2 hours if needed 12 tablet 0 - amitriptyline (ELAVIL) 50 mg tablet Take 50 mg by mouth daily at bedtime. - topiramate (TOPAMAX) 50 mg tablet Take 50 mg by mouth twic e daily. - ziprasidone (GEODON) 40 mg capsule Take 40 mg by mouth d aily with dinner. - vitamin b complex (B COMPLETE) tab Take 1 tablet by mouth once daily. 90 tablet 3 - EPINEPHrine (EPIPEN) 0.3 mg/0.3 mL auto-injector Inject 0. 3 mL intramuscularly as needed (for allergic reaction.Seek [facility] medical care immediately after use.Disp:one 2-pack w/education trainer). 1 Each 1 No current facility-administered medications for this visit. PHYSICAL EXAM: GENERAL: Well developed, well nourished, healthy appearing a nd in no acute distress. HEENT: PERRLA. EOMI. MMM. RESP: NL effort, no retractions or purse-lip breathing. CV: No extremity swelling, varices, edema, pallor, erythema ABDOMEN: Soft, nontender, nondistended, no masses. Normal bacilio wel sounds. HERNIAS: None SKIN/LYMPH: No rash, lesions. No axillary or femoral lymphad enopathy. NEURO: Alert and oriented x3. Normal Speech. PSYCH: No signs of depression, anxiety, or agitation. EXTREMITIES: Extremities normal. No deformities, edema, club robert or skin discoloration. FROM. LABS: UA: trace Hgb, small wBC No results found for: PSA, PSAPER Creatinine (mg/dL) Date Value 07/14/2019 0.98 01/29/2019 0.94 09/23/2018 1.00 05/28/2018 0.94 03/08/2018 1.03 10/10/2016 0.86 03/25/2016 0.90 12/04/2014 0.76 IMAGING: KUB: 12/30/2019 IMPRESSION: No findings suspicious for urinary calculus. ?Pelvic calcifi cations compatible phleboliths and similar to prior study of 019 ASSESSMENT AND PLAN: This is a 44 year old female who presents to the office to day for the above complaints. KUB reviewed with the pt - no calcifications in her urinary tract. UA shows trace Hgb and small WBCs. Urine culture ordered; will contact the pt with the results and treat accordingly. KUB prior to follow up. Follow up in 6 months or sooner if she develops any concer catracho or worsening symptoms. All questions were answered satisfactorily for the patient. ATTESTATION: By signing my name below, I, Vinicio Chelseamadiha, attest that this documentation has been prepared under the direction and in the pre sence of Nery Canela MD. Electronically Signed:hugo Hutchinson, January 08 12:48 PM Provider Attestation: I, Dr. Nery Canela MD, personally performed t he services described in this documentation. All medical record entries made by the jeramyibe were at my direction and in my presence. I have reviewed the chart and discharge instructions (if applicable) and agree that the record ref lects my personal performance and is accurate and complete. Dr. Nery Canela MD. January 08, 2020 2:35 PM Referring Provider: SELF [[id number]] Allergies As of Date: 01/08/2020 Noted Allergy Reaction BETA BLOCKERS (BETA-BLOCKERS (BET*2013 15 - Contraindication-Medical Sharma* Comments: Avoid use of beta blockers and KERRIE inhibitors sinc e patient is on venom immunotherapy KERRIE INHIBITORS 11/02/2014 15 - Contraindication-Medical Sharma* Comments: Avoid use of beta blockers and KERRIE inhibitors sinc e patient is on venom immunotherapy Environmental Allergies [Other] 12/25/2006 Comments: Grasses, molds, dust mites, cats, cockroaches LEXAPRO (ESCITALOPRAM OXALATE) 10/30/2018 5 - Intolerance Comments: altered mood PROZAC (FLUOXETINE HCL) 10/30/2018 5 - Intolerance Comments: altered mood TRINTELLIX (VORTIOXETINE) 01/08/2020 1 - Mental Status Carbajal e VENOM-WASP 09/26/2007 VENOM-YELLOW HORNET 09/26/2007 16 - Unknown Comments: Yellow and white faced hornet VENOM-YELLOW JACKET PROTEIN 09/26/2007 WELLBUTRIN (BUPROPION HCL) 05/08/2019 2 - Rash Comments: Agitation ZOLOFT (SERTRALINE HCL) 10/30/2018 5 - Intolerance Comments: altered mood Date Reviewed: 01/08/2020 Reviewed by: Iain Brewster Ma - Fully Assessed Primary Visit Diagnosis:History of kidney stones [Z87.442] Order(s):URINE CULTURE [SQURCUL] Order #: [id number] XR ABDOMEN 1V SUPINE [[id number]] Order #: [id number] FUTURE Prescriptions as of 01/08/2020 Sig: PRODIGEN 31 BILLION CELL CAPS* Take 1 capsule by mouth daily * OYSCO-500 500 MG CALCIUM (1,* Take 1 tablet by mouth twice * DOXYCYCLINE MONOHYDRATE 100 M* Take 1 tablet by mouth twice * GABAPENTIN 100 MG CAPSULE Take 1 capsule by mouth three* [employer]AB[employer] 79 %* Apply 1 application to affect * Patient taking differently: Apply 1 application to affect* SYMBICORT 160 MCG-4.5 MCG/ACT* Inhale 2 Puffs as instructed * CYCLOBENZAPRINE 10 MG TABLET Take 1 tablet by mouth three * ALBUTEROL SULFATE 2.5 MG/3 ML* Use 3 mL via nebulizer every * DEXTROAMPHETAMINE-AMPHETAMINE* Take 20 mg by mouth once ngozi * FAMOTIDINE 20 MG TABLET Take 1 tablet by mouth twice * CALCIUM CARBONATE 500 MG (1,2* Take 1 tablet by mouth twice * NAPROXEN 500 MG TABLET Take 1 tablet by mouth twice * B-COMPLEX WITH VITAMIN C TABL* Take 1 tablet by mouth once d * CHOLECALCIFEROL (VITAMIN D3) * Take 1 tablet by mouth once d * MAGNESIUM 250 MG TABLET Take 1 tablet by mouth once d* ALBUTEROL SULFATE HFA 90 MCG/* Inhale 2 Puffs as instructed * LORAZEPAM 0.5 MG TABLET Take by mouth at bedtime as n* TRIAMCINOLONE ACETONIDE 55 MC* Use 2 Sprays in each nostril * AZELASTINE 137 MCG (0.1 %) NA* Use 2 Sprays in each nostril * GUAIFENESIN ER 600 MG TABLET,* Take 2 tablets by mouth twice * CETIRIZINE 10 MG TABLET Take 1 tablet by mouth once d* KETOTIFEN 0.025 % (0.035 %) E* One drop to each eye 2 to 3 t * RIZATRIPTAN 10 MG TABLET Take 1 tablet by mouth as nee* AMITRIPTYLINE 50 MG TABLET Take 50 mg by mouth daily at * TOPIRAMATE 50 MG TABLET Take 50 mg by mouth twice mara* ZIPRASIDONE 40 MG CAPSULE Take 40 mg by mouth daily wit* VITAMIN B COMPLEX TABLET Take 1 tablet by mouth once d* EPINEPHRINE 0.3 MG/0.3 ML INJ* Inject 0.3 mL intramuscularly * FLUTICASONE PROPIONATE 115 MC* Inhale 2 Puffs as instructed * Patient not taking: Reported on 12/30/2019 LACTOBACILLUS RHAMNOSUS GG-LA* Take 1 capsule by mouth daily * Patient not taking: Reported on 12/30/2019 Problem List As Of Date 01/08/2020 Noted Resolved ASTHMA UNSPECIFIED [J45.909] 11/02/2014 Allergic rhinitis due to fungal spores [J30.89] More... Obesity, Class III, BMI 40-49.9 (morbid obesity*11/21/2006 Obstructive sleep apnea [G47.33] 08/19/2007 Toxic effect of venom [T63.91XA] 09/23/2007 11/28/2018 Moderate persistent asthma [J45.40] 11/02/2014 Allergic rhinitis due to dust mite [J30.89] 01/24/2018 Allergic rhinitis due to cat hair [J30.81] 01/24/2018 Seasonal allergic rhinitis due to pollen [J30.1]01/24/2018 Right ureteral calculus [N20.1] 02/15/2018 More... Nonspecific paroxysmal spell [R40.4] 08/14/2018 09/24/2018 Psychogenic nonepileptic seizure [F44.5] 08/14/2018 Transient alteration of awareness [R40.4] 08/14/2018 018 Concern about neurological disease without diag*08/14/2018 1 11/24/2017 Psychosocial stressors [Z65.8] 08/14/2018 Episodic mood disorder (HCC) [F39] 08/14/2018 Convulsions (HCC) [R56.9] 09/23/2018 Other group home (current) drug therapy [Z79.899]08/22/2018 Severe manic bipolar I disorder with psychotic *09/24/2018 Toxic effect of venom [T63.91XA] 11/28/2018 Myalgia [M79.10] 01/29/2019 Chronic pain syndrome [G89.4] 01/29/2019 Concentration deficit [R41.840] 01/29/2019 Screening for breast cancer [Z12.39] 01/29/2019 Bipolar disorder, current episode mixed, modera*04/08/2019 Intractable migraine without status migrainosus*04/08/2019 Intertrigo [L30.4] 04/08/2019 Disposition: Return in about 6 months (around 07/08/2020). Follow-up and Disposition History Recorded Encounter Status:Closed by NERY CANELA MD on 01/08/20 xr abdomen 1v supine on 2019-12-30 XR ABDOMEN 1V * * *Final Report* * * Normal [facility] SUPINE DATE OF EXAM: Dec 30 2019 12:15PM [facility] ([id number]) WRX [id number] - XR ABDOMEN 1V SUPINE / PROCEDURE REASON: multiple diagnoses * * * * Physician Interpretation * * * * KUB: History: nephrolithiasis No evidence of abnormal calcification overlying the kidneys. Multiple small calcifications, less than or equal to 3 mm in diameter , overlying the urinary bladder are likely phleboliths.. Portions of bot h the urinary tracts are obscured by bowel gas. There is no eviden ce of the dilated bowel. Osseous structures appear intact. IMPRESSION: No findings suspicious for urinary calculus. Pelvic calcific ations compatible phleboliths and similar to prior study of 019 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 Transcribe Date/Time: Dec 30 2019 2:43P Dictated by : CAMDEN SHAFFER MD This examination was interpreted and the report reviewed and electronically signed by: CAMDEN SHAFFER MD on Dec 30 2019 2:44PM EST [id number] progress on 2019-12 PROGRESS HNO ID: [id number] Normal 12-30-2019 [facility] Author: Beverly Morales) [facility] ([id number]) Service: ? Author Type: Nurse Practitioner Type: Progress Notes Filed: 12/30/2019 6:09 PM Note Text: Subjective HPI HPI Bhavesh Beaulieu is a 44 year old female who presents to day for CC of sinus pressure, ear pain. This started over 1 week. Has trie d otc medication. Symptoms are worsened by nothing. Risk factors n o sick exposures, hx of sinusitis. .Patient presents with: Sinus Problem: sinus pressure, headache, left ear pain and o ff balance x 1 week PAST MEDICAL HISTORY Diagnosis Date - Allergic rhinitis, cause unspecified Allergy, airborne subst - Anxiety and depression - Bee allergy status - Depression - Environmental allergies - GERD (gastroesophageal reflux disease) - Hypercholesteremia 11/2014 - Impaired fasting glucose - Migraines - Morbid obesity (HCC) - Obstructive sleep apnea DX 2006, not on CPAP since 06/2018 - Unspecified asthma(493.90) weather, allergy and exercise triggers - Vitamin D deficiency PAST SURGICAL HISTORY Procedure Laterality Date - DELIVERY ONLY 2001 , low cervical - LIGATE FALLOPIAN TUBE 2001 Tubal ligation - [facility]OTRIPSY [facility] Right 02/18/2018 - STEREOTACTIC LOCALIZATION BREAST BIOPSY Right 05/26/2019 ALLERGIES Beta Blockers [Beta-Blockers (Beta-Adrenergic Bloc aj Agts)]; Kerrie Inhibitors; Environmental Allergies [Other]; Lexapro [Es citalopram Oxalate]; Prozac [Fluoxetine Hcl]; Venom-Wasp; Venom-Yellow Hornet; Venom-Yellow Jacket Protein; Wellbutrin [Bupropion Hcl]; Zol oft [Sertraline Hcl] -This section reviewed with patient, no changes MEDICATIONS gabapentin (NEURONTIN) 100 mg capsule Take 1 capsule by mout h three times daily for 98 days. [place] Vjqpcw-Zjusdt-Dxcl Oxide ([employer]AB[employer]) 79- 4-15 % powd Apply 1 application to affected area twice daily as needed ( intertrigo). budesonide-formoterol (SYMBICORT) 160-4.5 mcg/actuation inha ler Inhale 2 Puffs as instructed twice daily. Use with spacer. Rinse mout h out after use. cyclobenzaprine (FLEXERIL) 10 mg tablet Take 1 tablet by marianne three times daily as needed for Muscle Spasm. albuterol (PROVENTIL) 2.5 mg /3 mL (0.083 %) nebulizer solut ion Use 3 mL via nebulizer every 4 hours as needed for Wheezing/Shortness of Breath. 1 vial contains 3 ml. amphetamine-dextroamphetamine XR (ADDERALL XR) 20 mg 24 hr c apsule Take 20 mg by mouth once daily. famotidine (PEPCID) 20 mg tablet Take 1 tablet by mouth twic e daily. wjkqgtt-wtkgyqiva-tzbtmby D3 (CALCIUM 500+D) 500 mg(1,250mg) -200 unit per tablet Take 1 tablet by mouth twice daily with meals. naproxen (NAPROSYN) 500 mg tablet Take 1 tablet by mouth twi ce daily as needed. B-complex with vitamin C (ALLBEE WITH C) tablet Take 1 table t by mouth once daily. cholecalciferol (VITAMIN D3) 2,000 unit tablet Take 1 tablet by mouth once daily. Magnesium 250 mg tab Take 1 tablet by mouth once daily. albuterol HFA (VENTOLIN HFA) 90 mcg/actuation inhaler Inhale 2 Puffs as instructed every 4 hours as needed. LORazepam (ATIVAN) 0.5 mg tab Take by mouth at bedtime as ne eded. triamcinolone acetonide (NASACORT AQ) 55 mcg nasal inhaler U se 2 Sprays in each nostril every morning. azelastine (ASTELIN,ASTEPRO) 0.1% nasal spray Use 2 Sprays i n each nostril daily at bedtime. guaiFENesin (MUCINEX) 600 mg 12 hr tablet Take 2 tablets by mouth twice daily as needed. cetirizine (ZYRTEC) 10 mg tablet Take 1 tablet by mouth once daily as needed. ketotifen fumarate (ZADITOR) 0.025 % (0.035 %) ophthalmic so lution One drop to each eye 2 to 3 times a day as needed. rizatriptan (MAXALT) 10 mg tablet Take 1 tablet by mouth as needed for Migraine Headache (see administration instructions). May rep eat in 2 hours if needed amitriptyline (ELAVIL) 50 mg tablet Take 50 mg by mouth ngozi y at bedtime. topiramate (TOPAMAX) 50 mg tablet Take 50 mg by mouth twice daily. ziprasidone (GEODON) 40 mg capsule Take 40 mg by mouth daily with dinner. vitamin b complex (B COMPLETE) tab Take 1 tablet by mouth on ce daily. EPINEPHrine (EPIPEN) 0.3 mg/0.3 mL auto-injector Inject 0.3 mL intramuscularly as needed (for allergic reaction.Seek emerge nt medical care immediately after use.Disp:one 2-pack w/education trainer). PRODIGEN 31 billion cell cap Take 1 capsule by mouth daily a t bedtime. OYSCO-500 500 mg calcium (1,250 mg) tablet Take 1 tablet by mouth twice daily with meals. fluticasone-salmeterol HFA (ADVAIR HFA) 115-21 mcg/actuation inhaler Inhale 2 Puffs as instructed twice daily. Use with spacer. R inse mouth out after use. L. rhamnosus-L. reuteri (REPHRESH PRO-B) 2.5 billion cell ca p Take 1 capsule by mouth daily at bedtime. FAMILY HISTORY Problem Relation Age of Onset - Asthma Mother - Thyroid Mother - COPD Mother - other (depression) Mother - other (depression) Sister - Asthma Brother - Depression Brother - Diabetes Father - Hypertension Father - Diabetes Maternal Grandmother - Thyroid Maternal Grandmother - Cancer Maternal Grandfather unknown - Kidney Disease Paternal Grandmother - Cancer Paternal Grandfather - Asthma Daughter - Depression Daughter - Depression Daughter - other (ADD) Daughter Social History Tobacco Use - Smoking status: Never Smoker - Smokeless tobacco: Never Used Substance Use Topics - Alcohol use: No - Drug use: No Review of Systems Constitutional: Negative for fever. HENT: Positive for congestion, ear pain and sinus pain. Nega tive for ear discharge, nosebleeds and sore throat. Respiratory: Positive for cough. Negative for shortness of b reath and wheezing. Musculoskeletal: Negative for neck pain. Skin: Negative for itching and rash. Objective Blood pressure 126/82, pulse 76, temperature 36.9 ?C (98.4 ? F), temperature source Tympanic, resp. rate 16, weight 118.8 kg (262 lb). Physical Exam Constitutional: She is oriented to person, place, and time a nd well-developed, well-nourished, and in no distress. Non-toxi c appearance. She does not have a sickly appearance. No distress. HENT: Head: Normocephalic and atraumatic. Right Ear: Hearing, external ear and ear canal normal. Tympa avila membrane is bulging. Tympanic membrane is not perforated and not eryt hematous. Left Ear: Hearing, external ear and ear canal normal. Tympan ic membrane is bulging. Tympanic membrane is not perforated and not erythem atous. Nose: Right sinus exhibits frontal sinus tenderness. Left si nus exhibits frontal sinus tenderness. Mouth/Throat: Uvula is midline, oropharynx is clear and mois t and mucous membranes are normal. Eyes: Pupils are equal, round, and reactive to light. Conjun ctivae and lids are normal. Right eye exhibits no discharge. Left eye e xhibits no discharge. No scleral icterus. Neck: Trachea normal and normal range of motion. Neck supple . Cardiovascular: Normal rate, regular rhythm and normal heart sounds. Pulmonary/Chest: Effort normal and breath sounds normal. Lymphadenopathy: She has no cervical adenopathy. Neurological: She is alert and oriented to person, place, an d time. Skin: No rash noted. She is not diaphoretic. ASSESSMENT/PLAN: 1. Bacterial sinusitis - ICD9: 473.9, 041.9, ICD10: J32.9, B 96.89 - Will begin treatment with Doxycline - Supportive care with plenty of fluids, rest, and analgesia prn. - Follow up in 3-5 days if symptoms persist or worsen. - DOXYCYCLINE MONOHYDRATE 100 MG TABLET Prescription instructions reviewed with patient as applicabl e. Patient advised if symptoms do not improve or if symptoms worsen mukesh ner, to contact the office for further evaluation by their primary c are physician. Potential red flag symptoms discussed with the patient. Revi ewed appropriate action plan to take if red flag symptoms occur. Patient agreeable to treatment plan. Beverly Villegas APRN.EVIDENCE SPECIALIST PROGRESS HNO ID: [id number] Normal 12-30-2019 [facility] Author: Jerri (Rt) Derrell Carvajal [facility] ([id number]) Service: ? Author Type: Msws Type: Progress Notes Filed: 12/30/2019 12:16 PM Note Text: Radiology Service Progress Note PATIENT NAME: Bhavesh Trammell Litaisaiahmeryl DATE OF SERVICE: December 30, 2019 TIME: 12:10 PM PATIENT IDENTITY VERIFICATION COMPLETED USING TWO (2) IDENTI FIERS: Name and Date of confirmed by patient verbally. PATIENT GENDER DATA: Female. status: : No status: NO. PATIENT RELEVANT IMPLANT DATA REVIEWED: Not Applicable RADIOLOGY DEPARTMENT: General X-ray: Exam(s) Completed: Abdo men X-Ray Abdomen PERIPHERAL IV DATA: Not applicable SIGNED BY: RT Clementina December 30, 2019 12:10 PM cnov on 2019-12-30 CNOV Office Visit ([facility]) Normal 12-30-19 [facility] BHAVESH BEAULIEU ([id number]) 1975 [facility] Date Time Provider Department ([id number]) 12/30/19 5:45 PM BEVERLY VILLEGAS (SHARATH) [facility] During your visit today, we recorded the following informati on about you: Temperature Pulse Respiration Blood pressure 98.4 degrees 76/minute 16/minute 126/82 Weight 118.8 kg Beverly Villegas APRN.CNP 12/30/2019 6:09 PM Signed Subjective HPI HPI Bhavesh Beaulieu is a 44 year old female who presents today for CC of sinus pressure, ear pain. This started over 1 week. Has tried otc medication. Symptoms are worsened by nothing. Risk factors no sick expos ures, hx of sinusitis. .Patient presents with: Sinus Problem: sinus pressur e, headache, left ear pain and off balance x 1 week PAST MEDICAL HISTORY Diagnosis Date - Allergic rhinitis, cause unspecified Allergy, airborne subst - Anxiety and depression - Bee allergy status - Depression - Environmental allergies - GERD (gastroesophageal reflux disease) - Hypercholesteremia 11/2014 - Impaired fasting glucose - Migraines - Morbid obesity (HCC) - Obstructive sleep apnea DX 2006, not on CPAP since 06/2018 - Unspecified asthma(493.90) weather, allergy and exercise triggers - Vitamin D deficiency PAST SURGICAL HISTORY Procedure Laterality Date - DELIVERY ONLY 2001 , low cervical - LIGATE FALLOPIAN TUBE 2001 Tubal ligation - [facility]RIPSY [facility] Right 02/18/2018 - STEREOTACTIC LOCALIZATION BREAST BIOPSY Right 05/26/2019 ALLERGIES Beta Blockers [Beta-Blockers (Beta-Adrenergi c Blocking Agts)]; Kerrie Inhibitors; Environmental Allergies [Other]; Lexapro [ Escitalopram Oxalate]; Prozac [Fluoxetine Hcl]; Venom-Wasp; Venom-Yello w Hornet; Venom-Yellow Jacket Protein; Wellbutrin [Bupropion Hcl]; Zoloft [Sertraline Hcl] -This section reviewed with patient, no changes MEDICATIONS gabapentin (NEURONTIN) 100 m g capsule Take 1 capsule by mouth three times daily for 98 days. [place] Zrfewi-Rlnvlw-Bjzg Oxid e ([employer]AB[employer]) 79-4-15 % powd Apply 1 application to affected area twice daily as needed (intertri go). budesonide-formoterol (SYMBICORT) 160-4. 5 mcg/actuation inhaler Inhale 2 Puffs as instructed twice daily. Use with spacer. Rinse mouth out after use. cyclobenzaprine (FLEXERIL) 10 mg tablet Take 1 tablet by three times daily as needed for Muscle Spasm. albuterol (PROVENTIL) 2.5 mg /3 mL (0.083 %) nebulizer solution Use 3 mL via nebulizer every 4 hours as needed for Wheezing/Shortness of Breath. 1 vial contains 3 ml. amphetamine-dextroamphetamine XR (ADDERALL XR) 2 0 mg 24 hr capsule Take 20 mg by mouth once daily. famotidine (PEPCID) 20 mg tablet Take 1 tablet by mouth twic e daily. fdgmnsn-zoqdlcuqy-nrkymtu D3 (CALCIUM 500+D) 500 mg(1,250mg) -200 unit per tablet Take 1 tablet by mouth twice daily with meals. naproxen (NAPROSYN) 500 mg t ablet Take 1 tablet by mouth twice daily as needed. B-complex with vitamin C (ALLBEE WITH C) tablet Take 1 tab let by mouth once daily. cholecalciferol (VITAMIN D3) 2,000 unit tablet Take 1 tablet by mouth once daily. Magnesium 250 mg tab Take 1 tablet by mouth once daily. albuterol HFA (VENTOLIN HFA) 90 mcg/actuation inhaler Inhale 2 Puffs as instructed every 4 hours as needed. LORazepam (ATIVAN) 0.5 mg tab Take by mouth at bedtime as ne eded. triamcinolone acetonide (LIDIA ACORT AQ) 55 mcg nasal inhaler Use 2 Sprays in each nostril every morning. azelastine (ASTELIN,ASTEPRO) 0.1% nasal spray Use 2 Sprays i n each nostril daily at bedtime. guaiFENesin (MUCINEX) 600 mg 12 hr tablet Take 2 tablets by mouth twice daily as needed. cetirizine (ZYRTEC) 10 mg tablet Take 1 tablet b y mouth once daily as needed. ketotifen fumarate (ZADITOR) 0.025 % (0. 035 %) ophthalmic solution One drop to each eye 2 to 3 times a day as needed. rizatriptan (MAXALT) 10 mg t ablet Take 1 tablet by mouth as needed for Migraine Headache (see administration instructions). May repeat in 2 hours if needed amitriptyline (ELAVIL) 50 mg tablet Take 50 mg by mouth ngozi y at bedtime. topiramate (TOPAMAX) 50 mg tablet Take 50 mg by mouth twice daily. ziprasidone (GEODON) 40 mg capsule Take 40 mg by mouth daily with dinner. vitamin b complex (B COMPLETE) tab Take 1 tablet by mouth on ce daily. EPINEPHrine (EPIPEN) 0.3 mg/0.3 mL auto- injector Inject 0.3 mL intramuscularly as needed (for allergic reaction.Seek emergent m edical care immediately after use.Disp:one 2-pack w/education trainer). PRODIGEN 31 billion cell cap Take 1 capsule by mouth daily a t bedtime. OYSCO-500 500 mg calcium (1,250 mg) tablet Take 1 tablet by mouth twice daily with meals. fluticasone-salmeterol HFA (ADVAIR HFA) 115-21 m cg/actuation inhaler Inhale 2 Puffs as instructed twice daily. Use with spacer. Rins e mouth out after use. L. rhamnosus-L. reuteri (REP HRESH PRO-B) 2.5 billion cell cap Take 1 capsule by mouth daily at bedtime. FAMILY HISTORY Problem Relation Age of Onset - Asthma Mother - Thyroid Mother - COPD Mother - other (depression) Mother - other (depression) Sister - Asthma Brother - Depression Brother - Diabetes Father - Hypertension Father - Diabetes Maternal Grandmother - Thyroid Maternal Grandmother - Cancer Maternal Grandfather unknown - Kidney Disease Paternal Grandmother - Cancer Paternal Grandfather - Asthma Daughter - Depression Daughter - Depression Daughter - other (ADD) Daughter Social History Tobacco Use - Smoking status: Never Smoker - Smokeless tobacco: Never Used Substance Use Topics - Alcohol use: No - Drug use: No Review of Systems Constitutional: Negative for fever. HENT: Positive for congestion, ear pain and sinus pain. Nega tive for ear discharge, nosebleeds and sore throat. Respiratory: Positive for co ugh. Negative for shortness of breath and wheezing. Musculoskeletal: Negative for neck pain. Skin: Negative for itching and rash. Objective Blood pressure 126/82, pulse 76, temperature 36.9 ?C (98.4 ?F), temperature source Tympanic, resp. rate 16, weight 118.8 kg (262 lb). Physical Exam Constitutional: She is oriented to perso n, place, and time and well-developed, well-nourished, and in no distress. Non-toxic ap pearance. She does not have a sickly appearance. No distress. HENT: Head: Normocephalic and atraumatic. Right Ear: Hearing, external ear and ear canal normal. Tym panic membrane is bulging. Tympanic membrane is not perforated and not erythem atous. Left Ear: Hearing, external ear and ear canal normal. Tympan ic membrane is bulging. Tympanic membrane is not perforated and not erythem atous. Nose: Right sinus exhibits frontal sinus tenderness. Left si nus exhibits frontal sinus tenderness. Mouth/Throat: Uvula is midline, oropharynx is clear and mois t and mucous membranes are normal. Eyes: Pupils are equal, roun d, and reactive to light. Conjunctivae and lids are normal. Right eye exhibits no discharge. Left eye exhibits no discharge. No scleral icterus. Neck: Trachea normal and normal range of motion. Neck supple . Cardiovascular: Normal rate, regular rhythm and normal heart sounds. Pulmonary/Chest: Effort normal and breath sounds normal. Lymphadenopathy: She has no cervical adenopathy. Neurological: She is alert and oriented to person, place, an d time. Skin: No rash noted. She is not diaphoretic. ASSESSMENT/PLAN: 1. Bacterial sinusitis - ICD9: 473.9, 041.9, ICD10: J32.9, B 96.89 - Will begin treatment with Doxycline - Supportive care with plenty of fluids, rest, and analgesia prn. - Follow up in 3-5 days if symptoms persist or worsen. - DOXYCYCLINE MONOHYDRATE 100 MG TABLET Prescription instructions reviewed with patient as applicable. Patient advised if symptoms do not improve or if symptom s worsen sooner, to contact the office for further evaluation by their primary care physician. Savanna copeland red flag symptoms discussed with the patient. Reviewed ap propriate action plan to take if red flag symptoms occur. Patient agreeable to treatment ignacio easton. Beverly Villegas APRN.SHARATH Villegas APRN.SHARATH 12/30/2019 6:05 PM Signed Acute Sinusitis Each of us has four paired cavities (spa rl) in our head that are connected to the nose by narrow channels. These cavities, known as sinu ses, produce thin mucus that drains out of the channels of the nose. This drainage helps keep the nose clean and free of particles and bacteria. Normally, sinuses are filled with air. But when sinuses beco me blocked and filled with fluid, bacteria can grow and cause an infection (bacterial sinusitis). Conditions that cause sinus blockage include: ? the common cold ? allergic rhinitis (swelling of the lining of the nose due to allergies) ? nasal polyps (small growths in the lining of the nose), or ? a deviated septum (the wall between the left a nd right nostril is crooked). Allergies, such as hay fever, can also c ause swelling and poor drainage of the sinuses. One confusing factor to cons ider is that many people with ?sinus headaches? are actually suffering from migraines. In fact, in large c linical studies, up to 90% of people who reported sinus headaches were diagnosed wi th migraines instead. Migraines can cause headaches in combination with facial pressure over the sinuses, a runny nose, and nasal congestion. If you have symptoms that involve the sinuses, it may be difficult to tell if you have sinusitis, a cold, nasal allergy, or even a migraine. This article will descr collin the symptoms, diagnosis, and treatment of sinusitis, and how t o tell the difference between sinusitis, cold, migraines, and nasal allergy. What is sinusitis? Sinusitis is an inflammation, or swelling, of the tiss ue lining the sinuses. There are two types of sinusitis: ? Acute bacterial sinusitis: a sudden onset of cold symptoms such as runny nose, stuffy nose, and facial pain that does not go away aft er 10 days, or symptoms that seem to begin improving but return worse than the initial symptoms. It responds well to antibiotics and decongestants. ? Chronic sinusitis: a condition defined by nasal congestion, drainage, facial pain/pressure, and decreased sense of smell for at least 12 weeks. Who gets sinusitis? Every year, approximately 1 billion Americans have at least one episode of viral sinusitis. About 37 million will develop a bacte rial sinusitis. People who have the following conditions have a higher risk of sinu sitis: ? Nasal mucus membrane swelling, as from a common cold or al lergies ? Blockage of drainage ducts, leading to trapping of mucus ? Structure differences that narrow the drainage ducts ? Conditions that result in an increased risk of infection ? Polyps (growths) In children, common factors in the environment that contri bute to sinusitis include allergies, illness f rom other children at day care or school, and smoke in the environment. In adults, the contributing factors are most frequently sadi l infections, allergies, and smoking. What are the signs and symptoms of acute sinusitis? The primary symptoms of acute sinusitis include: ? Facial pain/pressure/tenderness ? Nasal stuffiness ? Nasal discharge (thick yel low or green discharge from nose), especially if it is long-lasting. These also may be present with viral illnes s. ? Loss of smell and taste ? Cough/congestion Additional symptoms may include: ? Fever of 102? or higher ? Ear pain ? Headache ? Bad breath ? Fatigue ? Ache in upper jaw and teeth How is sinusitis diagnosed? To diagnose sinusitis, your doctor will discuss your symptoms and examine your nose for swelling and drainage. Your personal history is mos t important in diagnosing sinusitis. A physical exam of the ears, nose, and throat is performed to look for signs of obstruction (blockage) or infection. Some patients may have condi tions that may need to be referred to a specialist, such as an ear, nose, and throat (ENT) physician. How is sinusitis treated? Acute sinusitis. If you have a simple sinusitis infection, your health care provider may recommend treat ment with cbhw-bpe-nrthdwi medications for cold and allergy, nasal saline irrigation, and drinking fluids (as most sinusitis is viral). Use of prescription intranasal steroid sprays might be added to help control symptoms. However, non-prescript ion drops or sprays should not be used beyond 5 days -- or they may actually increase congestion. If symptoms do not improve after at least 10 day s, if the symptoms seem to be getting worse, or if medicat ions for cold or allergy do not improve symptoms, a bacterial infection may be c ausing the sinusitis. In this case, antibiotics are given for 7 days in adults and 10 days i n children. Antibiotics should improve symptoms within 48 hours. Chronic sinusitis. Treating chronic sinusitis begins with co ntrolling the underlying condition, which is most often allergies. Standar d treatments include intranasal steroid sprays, topical antihistamine spr ays, or antihistamine pills, and brian kotriene antagonists such as montelukast. Often you will be encouraged to rinse the nose with saline irrigations . Sometimes medications may be added to these irrigations. If sinusitis is not controlled, the next step is a visit with an Ear, Nose and Throat Specialist. Will I need to make lifestyle changes? If you have indoor allergies, avoiding triggers -- suc h as animal dander and dust mites ? is recommended in addition to medications. Smoking is never recommended, but if you do smoke, strongly consider a program to help you stop smoking, as this may be the main reason you have sinus infections. No special diet is required, but drinking extr a fluids helps to thin nasal secretions. What are the symptoms of the common cold? An upper respiratory infection (the common cold) is usually caused by a virus that infects the nose and throat. Most upper respiratory i nfections are not bacterial and do not respond to antibiotics. A c old may cause swelling in the sinuses, preventing the outflow of mucus. Cold symptoms include nasal congestion, runny nose, post-lidia al drip (qsjl-cy-wihe release of nasal fluid into the back of the throat), headache, achiness, and fatigue. Cough and fever may also go along with these symptoms. Cold symptoms usually build, peak, and slowly disappear. No treatment is necessary for a cold, but some medications can ease symptoms . For example, decongestants may decrease drainage and open the nasal pas sages. Analgesics (pain relievers) may help with fever and headach e. Cough medication may help, as well. Colds will typically last from a few days to about a week. What is the harm in getting an antibiotic for a common cold? Viral infections like the common cold are not cu red by antibiotics. Taking an antibiotic for a viral infection unnecessarily puts you at r isk for side effects related to the antibiotic. In addition, the overuse of antibiotics leads to antibiotic resistance, which may make future infections more difficult to treat. Finally, the use of inappropriate medication increases health care costs unneces sarily. What are the symptoms of nasal allergy? Symptoms of nasal allergy include: ? Sneezing ? Itchy nose ? Clear, watery nasal discharge ? Nasal blockage ? Feeling fatigued How is nasal allergy treated? Usually medications are prescribed to relieve symptoms. Thes e may include antihistamines, with or without decongestants, o r steroid nasal sprays. Other nasal sprays, which deliver antihistamines or cromolyn sodium, are sometimes helpful. If allergy symptoms are chronic (long-term), allerg y testing and allergy shots (immunotherapy) may be helpful. How can I tell if I have a sinus infection, cold, or nasal a llergy? Although the symptoms of sinusitis and nasal allergy m ay occur with a common cold, in general, cold-related symptoms disappear within 1 w [place]. The point at which a normal cold ends and a sinus condition begins is not always easy to know. If you are fighting off a c old and develop symptoms of a sinus infection or nasal allergy, see your health care provider. You will be asked to describe your symptoms and medical history. ? How do I know if my sinus condition requires the care of an ear, nose, and throat specialist? Most routine sinus conditions are easily cared for by primary care physicians. If, however, you are bothered by ongoing abnormal symptoms, recurring infections, or have abnormal X-ray findings or c omplications, a referral to a specialist is appropriate. References ? Alfred Godinez et al., IDSA Clinical Practice Guideline for Acut e Bacterial Rhinosinusitis in Children and Adults. Clinical Infectious D iseases; 2012;54(8):7236-1212. ? Maite Ignacio, Sinusitis: Allergies, antibiotic s, aspirin, asthma. [facility] Journal of Medicine 2006; 73(7): 671-678 ? National [place] [employer]ious [employer]. Sin usitis (Sinus Infection) Accessed 09/28/2015. ? [place] [employer]ergy, Asthma, and Immunology. Sinus itis Accessed 09/28/2015. ? [place] [employer] y, Asthma AND Immunology. Sinus Information Accessed 09/28/2015. ? Renard Richter., Prevalence of migraine in patients with a history of self-reported or physician-diagnosed sinus hea dache. Arch Registered Account Administrator Med, 2004. 164(16):1769-44. ? Copyright 1408-[address] [facility]. All rights reserved. Referring Provider: SELF [200] Allergies As of Date: 12/30/2019 Noted Allergy Reaction BETA BLOCKERS (BETA-BLOCKERS (BET*2013 15 - Contraindication-Medical Sharma* Comments: Avoid use of beta blockers and KERRIE inhibitors sinc e patient is on venom immunotherapy KERRIE INHIBITORS 11/02/2014 15 - Contraindication-Medical Sharma* Comments: Avoid use of beta blockers and KERRIE inhibitors sinc e patient is on venom immunotherapy Environmental Allergies [Other] 12/25/2006 Comments: Grasses, molds, dust mites, cats, cockroaches LEXAPRO (ESCITALOPRAM OXALATE) 10/30/2018 5 - Intolerance Comments: altered mood PROZAC (FLUOXETINE HCL) 10/30/2018 5 - Intolerance Comments: altered mood VENOM-WASP 09/26/2007 VENOM-YELLOW HORNET 09/26/2007 16 - Unknown Comments: Yellow and white faced hornet VENOM-YELLOW JACKET PROTEIN 09/26/2007 WELLBUTRIN (BUPROPION HCL) 05/08/2019 2 - Rash Comments: Agitation ZOLOFT (SERTRALINE HCL) 10/30/2018 5 - Intolerance Comments: altered mood Date Reviewed: 12/30/2019 Reviewed by: Sharron Powell Ma - Fully Assessed Reason for Visit: Sinus Problem [99] Cmt: sinus pressure, headache, left ear p ain and off balance x 1 week Primary Visit Diagnosis:Bacterial sinusitis [J32.9, B96.89] Order(s):doxycycline monohydrate 100 mg tabletTake 1 tablet by mouth twice daily for 10 days.Disp: 20 tabletRfl: 0 Prescriptions as of 12/30/2019 Sig: GABAPENTIN 100 MG CAPSULE Take 1 capsule by mouth three* GOLD SOLANO MEDICATED BABY 79 %* Apply 1 application to affect * SYMBICORT 160 MCG-4.5 MCG/ACT* Inhale 2 Puffs as instructed * CYCLOBENZAPRINE 10 MG TABLET Take 1 tablet by mouth three * ALBUTEROL SULFATE 2.5 MG/3 ML* Use 3 mL via nebulizer every * DEXTROAMPHETAMINE-AMPHETAMINE* Take 20 mg by mouth once ngozi * FAMOTIDINE 20 MG TABLET Take 1 tablet by mouth twice * CALCIUM CARBONATE 500 MG (1,2* Take 1 tablet by mouth twice * NAPROXEN 500 MG TABLET Take 1 tablet by mouth twice * B-COMPLEX WITH VITAMIN C TABL* Take 1 tablet by mouth once d * CHOLECALCIFEROL (VITAMIN D3) * Take 1 tablet by mouth once d * MAGNESIUM 250 MG TABLET Take 1 tablet by mouth once d* ALBUTEROL SULFATE HFA 90 MCG/* Inhale 2 Puffs as instructed * LORAZEPAM 0.5 MG TABLET Take by mouth at bedtime as n* TRIAMCINOLONE ACETONIDE 55 MC* Use 2 Sprays in each nostril * AZELASTINE 137 MCG (0.1 %) NA* Use 2 Sprays in each nostril * GUAIFENESIN ER 600 MG TABLET,* Take 2 tablets by mouth twice * CETIRIZINE 10 MG TABLET Take 1 tablet by mouth once d* KETOTIFEN 0.025 % (0.035 %) E* One drop to each eye 2 to 3 t * RIZATRIPTAN 10 MG TABLET Take 1 tablet by mouth as nee* AMITRIPTYLINE 50 MG TABLET Take 50 mg by mouth daily at * TOPIRAMATE 50 MG TABLET Take 50 mg by mouth twice mara* ZIPRASIDONE 40 MG CAPSULE Take 40 mg by mouth daily wit* VITAMIN B COMPLEX TABLET Take 1 tablet by mouth once d* EPINEPHRINE 0.3 MG/0.3 ML INJ* Inject 0.3 mL intramuscularly * PRODIGEN 31 BILLION CELL CAPS* Take 1 capsule by mouth daily * OYSCO-500 500 MG CALCIUM (1,* Take 1 tablet by mouth twice * DOXYCYCLINE MONOHYDRATE 100 M* Take 1 tablet by mouth twice * FLUTICASONE PROPIONATE 115 MC* Inhale 2 Puffs as instructed * Patient not taking: Reported on 12/30/2019 LACTOBACILLUS RHAMNOSUS GG-LA* Take 1 capsule by mouth daily * Patient not taking: Reported on 12/30/2019 Problem List As Of Date 12/30/2019 Noted Resolved ASTHMA UNSPECIFIED [J45.909] 11/02/2014 Allergic rhinitis due to fungal spores [J30.89] More... Obesity, Class III, BMI 40-49.9 (morbid obesity*11/21/2006 Obstructive sleep apnea [G47.33] 08/19/2007 Toxic effect of venom [T63.91XA] 09/23/2007 11/28/2018 Moderate persistent asthma [J45.40] 11/02/2014 Allergic rhinitis due to dust mite [J30.89] 01/24/2018 Allergic rhinitis due to cat hair [J30.81] 01/24/2018 Seasonal allergic rhinitis due to pollen [J30.1]01/24/2018 Right ureteral calculus [N20.1] 02/15/2018 More... Nonspecific paroxysmal spell [R40.4] 08/14/2018 09/24/2018 Psychogenic nonepileptic seizure [F44.5] 08/14/2018 Transient alteration of awareness [R40.4] 08/14/2018 018 Concern about neurological disease without diag*08/14/2018 1 11/24/2017 Psychosocial stressors [Z65.8] 08/14/2018 Episodic mood disorder (HCC) [F39] 08/14/2018 Convulsions (HCC) [R56.9] 09/23/2018 Other group home (current) drug therapy [Z79.899]08/22/2018 Severe manic bipolar I disorder with psychotic *09/24/2018 Toxic effect of venom [T63.91XA] 11/28/2018 Myalgia [M79.10] 01/29/2019 Chronic pain syndrome [G89.4] 01/29/2019 Concentration deficit [R41.840] 01/29/2019 Screening for breast cancer [Z12.39] 01/29/2019 Bipolar disorder, current episode mixed, modera*04/08/2019 Intractable migraine without status migrainosus*04/08/2019 Intertrigo [L30.4] 04/08/2019 Other instructions from your clinician: Acute Sinusitis Each of us has four paired cavities (spaces) in our head dev t are connected to the nose by narrow channels. These cavities, kn own as sinuses, produce thin mucus that drains out of the channels of the nose. This drainage helps keep the nose clean and free of particle s and bacteria. Normally, sinuses are filled with air. But when sinuses beco me blocked and filled with fluid, bacteria can grow and cause an infection (bacterial sinusitis). Conditions that cause sinus blockage include: ? the common cold ? allergic rhinitis (swelling of the lining of the nose due to allergies) ? nasal polyps (small growths in the lining of the nose), or ? a deviated septum (the wall between the left and right nos tril is crooked). Allergies, such as hay fever, can also cause swelling and po or drainage of the sinuses. One confusing factor to consider is that many people with ?s inus headaches? are actually suffering from migraines. In fact, i n large clinical studies, up to 90% of people who reported sinus hea daches were diagnosed with migraines instead. Migraines can cause headac hes in combination with facial pressure over the sinuses, a runny n ose, and nasal congestion. If you have symptoms that involve the sinuses, i t may be difficult to tell if you have sinusitis, a cold, nasal aller gy, or even a migraine. This article will describe the symptoms, diagnosis , and treatment of sinusitis, and how to tell the difference betwe en sinusitis, cold, migraines, and nasal allergy. What is sinusitis? Sinusitis is an inflammation, or swelling, of the tissue sakshi ing the sinuses. There are two types of sinusitis: ? Acute bacterial sinusitis: a sudden onset of cold symptoms such as runny nose, stuffy nose, and facial pain that does not go away aft er 10 days, or symptoms that seem to begin improving but return worse than the initial symptoms. It responds well to antibiotics and decongestants. ? Chronic sinusitis: a condition defined by nasal congestion , drainage, facial pain/pressure, and decreased sense of smell for at le ast 12 weeks. Who gets sinusitis? Every year, approximately 1 billion Americans have at least one episode of viral sinusitis. About 37 million will develop a bacterial s inusitis. People who have the following conditions have a higher risk of sinusitis: ? Nasal mucus membrane swelling, as from a common cold or al lergies ? Blockage of drainage ducts, leading to trapping of mucus ? Structure differences that narrow the drainage ducts ? Conditions that result in an increased risk of infection ? Polyps (growths) In children, common factors in the environment that contribu te to sinusitis include allergies, illness from other children at day care or school, and smoke in the environment. In adults, the contributing factors are most frequently sadi l infections, allergies, and smoking. What are the signs and symptoms of acute sinusitis? The primary symptoms of acute sinusitis include: ? Facial pain/pressure/tenderness ? Nasal stuffiness ? Nasal discharge (thick yellow or green discharge from nose ), especially if it is long-lasting. These also may be present with viral illness. ? Loss of smell and taste ? Cough/congestion Additional symptoms may include: ? Fever of 102? or higher ? Ear pain ? Headache ? Bad breath ? Fatigue ? Ache in upper jaw and teeth How is sinusitis diagnosed? To diagnose sinusitis, your doctor will discuss your symptom s and examine your nose for swelling and drainage. Your personal history i s most important in diagnosing sinusitis. A physical exam of the ears, nose, and throat is performed t o look for signs of obstruction (blockage) or infection. Some patients may have conditions that may need to be referr ed to a specialist, such as an ear, nose, and throat (ENT) physician . How is sinusitis treated? Acute sinusitis. If you have a simple sinusitis infection, y our health care provider may recommend treatment with bcxi-lai-urbxykl medications for cold and allergy, nasal saline irrigation, and drinking fluids (as most sinusitis is viral). Use of prescription intranasal skip roid sprays might be added to help control symptoms. However, non-prescr iption drops or sprays should not be used beyond 5 days -- or they may ac tually increase congestion. If symptoms do not improve after at least 10 days, if the sy mptoms seem to be getting worse, or if medications for cold or allergy do n ot improve symptoms, a bacterial infection may be causing the sinusitis . In this case, antibiotics are given for 7 days in adults and 10 days in children. Antibiotics should improve symptoms within 48 hours. Chronic sinusitis. Treating chronic sinusitis begins with co ntrolling the underlying condition, which is most often allergies. Standar d treatments include intranasal steroid sprays, topical antihistamine spr ays, or antihistamine pills, and leukotriene antagonists such as mon telukast. Often you will be encouraged to rinse the nose with saline i rrigations. Sometimes medications may be added to these irrigations. If sinusitis is not controlled, the next step is a visit wit h an Ear, Nose and Throat Specialist. Will I need to make lifestyle changes? If you have indoor allergies, avoiding triggers -- such as a nimal dander and dust mites ? is recommended in addition to medications. Smoking is never recommended, but if you do smoke, strongly consider a program to help you stop smoking, as this may be the main re ason you have sinus infections. No special diet is required, but drinking extra fluids helps to thin nasal secretions. What are the symptoms of the common cold? An upper respiratory infection (the common cold) is usually caused by a virus that infects the nose and throat. Most upper respirato ry infections are not bacterial and do not respond to antibiotics. A cold may cause swelling in the sinuses, preventing the outflow of mucus. Cold symptoms include nasal congestion, runny nose, post-lidia al drip (ibax-kb-dvtq release of nasal fluid into the back of the th roat), headache, achiness, and fatigue. Cough and fever may also go along with these symptoms. Cold symptoms usually build, peak, and slowly disappear. No treatment is necessary for a cold, but some medications can ease symptoms . For example, decongestants may decrease drainage and open the nasal passa ges. Analgesics (pain relievers) may help with fever and headache . Cough medication may help, as well. Colds will typically last from a few days to about a week. What is the harm in getting an antibiotic for a common cold? Viral infections like the common cold are not cured by antib iotics. Taking an antibiotic for a viral infection unnecessarily puts you a t risk for side effects related to the antibiotic. In addition, the ove ruse of antibiotics leads to antibiotic resistance, which may make future infections more difficult to treat. [place], the use of inappropriate medication increases health care costs unne cessarily. What are the symptoms of nasal allergy? Symptoms of nasal allergy include: ? Sneezing ? Itchy nose ? Clear, watery nasal discharge ? Nasal blockage ? Feeling fatigued How is nasal allergy treated? Usually medications are prescribed to relieve symptoms. Thes e may include antihistamines, with or without decongestants, or steroid na melissa sprays. Other nasal sprays, which deliver antihistamines or cromolyn sodium, are sometimes helpful. If allergy symptoms are chronic (long-ter m), allergy testing and allergy shots (immunotherapy) may be helpful. How can I tell if I have a sinus infection, cold, or nasal a llergy? Although the symptoms of sinusitis and nasal allergy may occ ur with a common cold, in general, cold-related symptoms disappear wit hin 1 week. The point at which a normal cold ends and a sinus condition begins is not always easy to know. If you are fighting off a cold and deve lop symptoms of a sinus infection or nasal allergy, see your health care provider. You will be asked to describe your symptoms and medical history. ? How do I know if my sinus condition requires the care of an ear, nose, and throat specialist? Most routine sinus conditions are easily cared for by primar y care physicians. If, however, you are bothered by ongoing abnorma l symptoms, recurring infections, or have abnormal X-ray findings or com plications, a referral to a specialist is appropriate. References ? Alfred Godinez et al., IDSA Clinical Practice Guideline for Acut e Bacterial Rhinosinusitis in Children and Adults. Clinical Infectious D iseases; 2012;54(8):9880-2083. ? Maite Ignacio, Sinusitis: Allergies, antibiotics, aspirin, asthma. [facility] Journal of Medicine 2006; 73(7): 671-678 ? National [place] of Allergy and Infectious Diseases. Sin usitis (Sinus Infection) Accessed 09/28/2015. ? [place] [employer] Allergy, Asthma, and Immunology. Sinus itis Accessed 09/28/2015. ? [place] [employer], [employer]hma AND Immun[employer]. Sinus Information Accessed 09/28/2015. ? Renard Richter., Prevalence of migraine in patients with a history of self-reported or physician-diagnosed sinus headache. Arch Registered Account Administrator Med, 2004. 164(16):1769-72. ? Copyright 1062-[address] [facility]. All r ights reserved. Prescriptions ordered this encounter Disp Refills Start End DOXYCYCLINE MONOHYDRATE 100 MG TABLET 20 t* 0 12/30/2019 Cmt: May transfer to Hyclate if less expensive. Route: ORAL Sig: Take 1 tablet by mouth twice daily for 10 days. Encounter Status:Closed by BEVERLY VILLEGAS CNP on 12/30/19 progress on 2019-11 PROGRESS HNO ID: [id number] Normal 12-05-2019 [facility] Author: Ninfa Mcdonald Mckenna ([id number]) Service: ? Author Type: Physician Type: Progress Notes Filed: 12/09/2019 4:52 PM Note Text: Bhavesh Beaulieu 1975 REFERRING PHYSICIAN: Ra Galvez DO CHIEF COMPLAINT: Follow Up HPI: The patient is a 44 year old female presents for follow up. She is s/p right stereotactic breast biopsy 05/26/19 She had a previous US guided right breast needle core biopsy - stromal fibrosis by pathology but non concordance by follow up mamm ograms. 05/26/19 Right breast, stereotactic needle core biopsy: Fat necrosis with associated benign histiocytic reaction and mild chronic inflammation and fibrosis. No evidence of malignancy. RESULTS: ANTIBODY / CLONE RESULT Block 1 GATA3 (L50-823) negative AE1-3 (AE1/AE3/PCK26) negative CK8 (72ahspI41) negative Vimentin (V9) positive Macro (HAM-56) positive CK5-6 (D5 AND 1684) negative P53 (DO-7) Negative 05/26/19 Right breast, stereotactic needle core biopsy: Fat necrosis with associated benign histiocytic reaction and mild chronic infl ammation and fibrosis. No evidence of malignancy. Recent right breast mammograms right breast 12/02/2019- Prior mammographic finding is no longer seen in the right br east, there are biopsy clips in superior medial quadrant, no BIRADS on r eport She is here for follow up 6 months from right breast biopsy. She denies palpable breast masses. Denies nipple discharge. Denies breast pain. PAST MEDICAL HISTORY Diagnosis Date - Allergic rhinitis, cause unspecified Allergy, airborne subst - Anxiety and depression - Bee allergy status - Depression - Environmental allergies - GERD (gastroesophageal reflux disease) - Hypercholesteremia 11/2014 - Impaired fasting glucose - Migraines - Morbid obesity (HCC) - Obstructive sleep apnea DX 2006, not on CPAP since 06/2018 - Unspecified asthma(493.90) weather, allergy and exercise triggers - Vitamin D deficiency PAST SURGICAL HISTORY Procedure Laterality Date - DELIVERY ONLY 2001 , low cervical - LIGATE FALLOPIAN TUBE 2001 Tubal ligation - LITHOTRIPSY [facility] Right 02/18/2018 - STEREOTACTIC LOCALIZATION BREAST BIOPSY Right 05/26/2019 Current Outpatient Medications Medication Sig - gabapentin (NEURONTIN) 100 mg capsule Take 1 capsule by mo uth three times daily for 98 days. - [employer] [employer]dv[employer]-Jauk Oxide (GOLD SOLANO MEDICATED BABY) 7 9-4-15 % powd Apply 1 application to affected area twice daily as needed ( intertrigo). - budesonide-formoterol (SYMBICORT) 160-4.5 mcg/actuation in haler Inhale 2 Puffs as instructed twice daily. Use with spacer. Rinse mout h out after use. - cyclobenzaprine (FLEXERIL) 10 mg tablet Take 1 tablet by m outh three times daily as needed for Muscle Spasm. - fluticasone-salmeterol HFA (ADVAIR HFA) 115-21 mcg/actuati on inhaler Inhale 2 Puffs as instructed twice daily. Use with spacer. R inse mouth out after use. - albuterol (PROVENTIL) 2.5 mg /3 mL (0.083 %) nebulizer estevan ution Use 3 mL via nebulizer every 4 hours as needed for Wheezing/Shortness of Breath. 1 vial contains 3 ml. - amphetamine-dextroamphetamine XR (ADDERALL XR) 20 mg 24 hr capsule Take 20 mg by mouth once daily. - famotidine (PEPCID) 20 mg tablet Take 1 tablet by mouth tw ice daily. - kaewemi-xueohvxqp-bibdgco D3 (CALCIUM 500+D) 500 mg(1,250m g) -200 unit per tablet Take 1 tablet by mouth twice daily with meals. - naproxen (NAPROSYN) 500 mg tablet Take 1 tablet by mouth t wice daily as needed. - B-complex with vitamin C (ALLBEE WITH C) tablet Take 1 tab let by mouth once daily. - cholecalciferol (VITAMIN D3) 2,000 unit tablet Take 1 tabl et by mouth once daily. - Magnesium 250 mg tab Take 1 tablet by mouth once daily. - L. rhamnosus-L. reuteri (REPHRESH PRO-B) 2.5 billion cell cap Take 1 capsule by mouth daily at bedtime. - albuterol HFA (VENTOLIN HFA) 90 mcg/actuation inhaler Inha le 2 Puffs as instructed every 4 hours as needed. - LORazepam (ATIVAN) 0.5 mg tab Take by mouth at bedtime as needed. - triamcinolone acetonide (NASACORT AQ) 55 mcg nasal inhaler Use 2 Sprays in each nostril every morning. - azelastine (ASTELIN,ASTEPRO) 0.1% nasal spray Use 2 Sprays in each nostril daily at bedtime. - guaiFENesin (MUCINEX) 600 mg 12 hr tablet Take 2 tablets b y mouth twice daily as needed. - cetirizine (ZYRTEC) 10 mg tablet Take 1 tablet by mouth on ce daily as needed. - ketotifen fumarate (ZADITOR) 0.025 % (0.035 %) ophthalmic solution One drop to each eye 2 to 3 times a day as needed. - rizatriptan (MAXALT) 10 mg tablet Take 1 tablet by mouth a s needed for Migraine Headache (see administration instructions). May rep eat in 2 hours if needed - amitriptyline (ELAVIL) 50 mg tablet Take 50 mg by mouth da jeri at bedtime. - topiramate (TOPAMAX) 50 mg tablet Take 50 mg by mouth twic e daily. - ziprasidone (GEODON) 40 mg capsule Take 40 mg by mouth mara ly with dinner. - vitamin b complex (B COMPLETE) tab Take 1 tablet by mouth once daily. - EPINEPHrine (EPIPEN) 0.3 mg/0.3 mL auto-injector Inject 0. 3 mL intramuscularly as needed (for allergic reaction.Seek emerge nt medical care immediately after use.Disp:one 2-pack w/education trainer). ALLERGIES: Beta Blockers [Beta-Blockers (Beta-Adrenergic Blo cking Agts)]; Kerrie Inhibitors; Environmental Allergies [Other]; Lexapro [Es citalopram Oxalate]; Prozac [Fluoxetine Hcl]; Venom-Wasp; Venom-Yellow Hornet; Venom-Yellow Jacket Protein; Wellbutrin [Bupropion Hcl]; Zol oft [Sertraline Hcl] PERSONAL HISTORY: Social History Tobacco Use - Smoking status: Never Smoker - Smokeless tobacco: Never Used Substance Use Topics - Alcohol use: No - Drug use: No FAMILY HISTORY Problem Relation Age of Onset - Asthma Mother - Thyroid Mother - COPD Mother - other (depression) Mother - other (depression) Sister - Asthma Brother - Depression Brother - Diabetes Father - Hypertension Father - Diabetes Maternal Grandmother - Thyroid Maternal Grandmother - Cancer Maternal Grandfather unknown - Kidney Disease Paternal Grandmother - Cancer Paternal Grandfather - Asthma Daughter - Depression Daughter - Depression Daughter - other (ADD) Daughter REVIEW OF SYSTEMS: General - denies fevers, denies weight loss, denies anorexia , feels tired all the time Cardiovascular - denies chest pain, denies history of MT Pulmonary - has shortness of breath with exertion, denies co ughing up blood, denies TOB use Gastrointestinal - denies abdominal pain, denies hematemesis Neurological - has migraine headaches, denies seizures, shankar es history of CVA Genitourinary - has had kidney stones, denies burning with u rination, denies blood in urine Hematological - denies spontaneous/prolonged bleeding Skin - denies nonhealing skin wounds Musculoskeletal - has knee pain Endocrine - denies diabetes Psychological ? has anxiety, denies hallucinations Obstetrical: menarche onset is age 12, , first at age 21, BCP starting at age 21 for about 1 y, denies breast feeding, denies hormones use at present, has had no menstrual periods for gr eater than 15 y ? PHYSICAL EXAMINATION: General: The patient is 43 year old female, well nourished, well hydrated in no acute distress. The patient is oriented to time, place , and person. VITALS: Ht: 5'3 Wt: 274# Head ? Normocephalic. EOM intact with sclera clear and no ic terus noted. Wearing glasses. Mouth with mucus membranes moist. Neck - supple with no jugular venous distention noted. Trach ea is midline. No carotid bruits noted. No thyroid enlargement or thyroid n odules detected. No masses noted. Chest/breast ? no asymmetry of breasts noted, bilateral ptot ic breasts, no suspicious skin lesions noted, no nipple discharge and both nipples everted, no breast masses noted Lungs ? clear to auscultation. Normal breath sounds. No rales/rhonchi/wheezing noted. No labored breathing noted, sharma ch as retractions. No cough heard. Heart ? normal S1 and S2 auscultated. No rubs/clicks/murmurs noted. Regular rate. Abdomen ? soft and benign. Normal bowel sounds. Difficult to determine if any masses or organomegaly due to body habitus. Extremities ? no calf tenderness noted. No pitting edema not ed. Skin ? normal skin integrity. Lymph ? no cervical adenopathy detected, no supraclavicular adenopathy detected, no axillary adenopathy detected Neurological ? gait normal, no focal deficits noted Psych ? calm and appropriate RADIOLOGIC STUDIES: As Noted ? Assessment IMPRESSION: abnormal right breast radiographs PLAN: I have discussed the above with the patient. I have reassured patient that she has no clinical evidence o f breast malignancy. Continue with yearly mammograms, bilateral to be done in March 2020. Follow up with me as per needed. Patient to return to her primary physician for medical care. Patient agrees with the above plan I have answered all questions to the patient?s satisfaction and the patient has no further questions. . Diagnoses: (R92.8) Abnormal mammogram (primary encounter tari gnosis) Return to Clinic: The patient is instructed to follow-up wit h me as above. I have confirmed and edited as necessary, the PFSH and ROS o btained by others. MD godfrey Joe on 2019-12-05 CNOV Office Visit (SWS) Normal 12-05-[address] [facility] BHAVESH BEAULIEU ([id number]) 1975 [facility] Date Time Provider Department ([id number]) 12/05/19 10:40 AM NINFA MCDONALD During your visit today, we recorded the following informati on about you: Ninfa Mcdonald MD 12/09/2019 4:52 PM Signed Bhavesh Beaulieu 1975 REFERRING PHYSICIAN: Ra Galvez DO CHIEF COMPLAINT: Follow Up HPI: The patient is a 44 year old female presents for follow up. She is s/p right stereotactic breast biopsy 05/26/19 She had a previous US guided right breast needle core biopsy - stromal fibrosis by pathology but non concordance by follow up mamm ograms. 05/26/19 Right breast, stereotactic needle core biopsy: Fat necrosis with associated benign histiocytic reaction and mild chronic inflammation and fibrosis. No evidence of malignancy. RESULTS: ANTIBODY / CLONE RESULT Block 1 GATA3 (L50-823) negative AE1-3 (AE1/AE3/PCK26) negative CK8 (27hsikL32) negative Vimentin (V9) positive Macro (HAM-56) positive CK5-6 (D5 AND 1684) negative P53 (DO-7) Negative 05/26/19 Right breast, stereotactic needle core biopsy: Fat ne crosis with associated benign histiocytic reaction and mild chronic inflammation an d fibrosis. No evidence of malignancy. Recent right breast mammograms right breast 12/02/2019- Prior mammographic finding is no longer seen in the right breast, there are biopsy clips in superior medial quadrant, no BIRADS on repor t She is here for follow up 6 months from right breast biopsy. She denies palpable breast masses. Denies nipple discharge. Denies breast pain. PAST MEDICAL HISTORY Diagnosis Date - Allergic rhinitis, cause unspecified Allergy, airborne subst - Anxiety and depression - Bee allergy status - Depression - Environmental allergies - GERD (gastroesophageal reflux disease) - Hypercholesteremia 11/2014 - Impaired fasting glucose - Migraines - Morbid obesity (HCC) - Obstructive sleep apnea DX 2006, not on CPAP since 06/2018 - Unspecified asthma(493.90) weather, allergy and exercise triggers - Vitamin D deficiency PAST SURGICAL HISTORY Procedure Laterality Date - DELIVERY ONLY 2001 , low cervical - LIGATE FALLOPIAN TUBE 2001 Tubal ligation - LITHOTRIPSY [facility] Right 02/18/2018 - STEREOTACTIC LOCALIZATION BREAST BIOPSY Right 05/26/2019 Current Outpatient Medications Medication Sig - gabapentin (NEURONTIN) 100 mg capsule Take 1 capsule by mouth three times daily for 98 days. - [place] Kwwzfv-Ysubcv-Xfsj Ox yanna (GOLD SOLANO MEDICATED BABY) 79-4-15 % powd Apply 1 application to affected area twice daily as needed (intert blaine). - budesonide-formoterol (SYMBICORT) 160-4.5 mcg/actuation in haler Inhale 2 Puffs as instructed twice daily. Use with spacer. Rins e mouth out after use. - cyclobenzaprine (FLEXERIL) 10 mg tablet Take 1 table t by mouth three times daily as needed for Muscle Spasm. - fluticasone-salmeterol HFA (ADVAIR HFA) 115-21 mcg/actuation inhaler Inhale 2 Puffs as instructed twice daily. Use with spacer. Rins e mouth out after use. - albuterol (PROVENTIL) 2.5 mg /3 mL (0. 083 %) nebulizer solution Use 3 mL via nebulizer every 4 hours as needed for Wheezing/Shortness of Breath. 1 vial contains 3 ml. - amphetamine-dextroamphetam ine XR (ADDERALL XR) 20 mg 24 hr capsule Take 20 mg by mouth once daily. - famotidine (PEPCID) 20 mg tablet Take 1 tablet by mouth tw ice daily. - braoeef-sbzdmrelq-gwjhklt D3 (CALCIUM 500+D) 500 mg( 1,250mg) -200 unit per tablet Take 1 tablet by mouth twice daily with meals. - naproxen (NAPROSYN) 500 mg tablet Take 1 tablet by mouth t wice daily as needed. - B-complex with vitamin C (ALLBEE WITH C) table t Take 1 tablet by mouth once daily. - cholecalciferol (VITAMIN D3) 2,000 unit tablet Take 1 tablet by mouth once daily. - Magnesium 250 mg tab Take 1 tablet by mouth once daily. - L. rhamnosus-L. reuteri (REPHRESH PRO- B) 2.5 billion cell cap Take 1 capsule by mouth daily at bedtime. - albuterol HFA (VENTOLIN HFA) 90 mcg/actuation inhaler Inha le 2 Puffs as instructed every 4 hours as needed. - LORazepam (ATIVAN) 0.5 mg tab Take by mouth at bedtime as needed. - triamcinolone acetonide (NASACORT AQ) 55 mcg nasal i nhaler Use 2 Sprays in each nostril every morning. - azelastine (ASTELIN,ASTEPRO) 0.1% nasal spray Use 2 Sprays in each nostril daily at bedtime. - guaiFENesin (MUCINEX) 600 mg 12 hr tablet Take 2 tablets by mouth twice daily as needed. - cetirizine (ZYRTEC) 10 mg tablet Take 1 tablet by mouth once daily as needed. - ketotifen fumarate (ZADITOR) 0.025 % (0.035 %) ophthalmic solution One drop to each eye 2 to 3 times a day as needed. - rizatriptan (MAXALT) 10 mg tablet Take 1 tablet by mouth a s needed for Migraine Headache (see administration instructio ns). May repeat in 2 hours if needed - amitriptyline (ELAVIL) 50 mg tablet Take 50 mg by mouth daily at bedtime. - topiramate (TOPAMAX) 50 mg tablet Take 50 mg by mouth twic e daily. - ziprasidone (GEODON) 40 mg capsule Take 40 mg by mouth d aily with dinner. - vitamin b complex (B COMPLETE) tab Take 1 tablet by mouth once daily. - EPINEPHrine (EPIPEN) 0.3 mg/0.3 mL auto-injector Inject 0. 3 mL intramuscularly as needed (for allergic reaction.Seek [facility] medical care immediately after use.Disp:one 2-pack w/education trainer). ALLERGIES: Beta Blockers [Beta-Blockers (Beta-Ad renergic Blocking Agts)]; Kerrie Inhibitors; Environmental Allergies [Other]; Lexapro [ Escitalopram Oxalate]; Prozac [Fluoxetine Hcl]; Venom-Wasp; Venom-Yello w Hornet; Venom-Yellow Jacket Protein; Wellbutrin [Bupropion Hcl]; Zoloft [Sertraline Hcl] PERSONAL HISTORY: Social History Tobacco Use - Smoking status: Never Smoker - Smokeless tobacco: Never Used Substance Use Topics - Alcohol use: No - Drug use: No FAMILY HISTORY Problem Relation Age of Onset - Asthma Mother - Thyroid Mother - COPD Mother - other (depression) Mother - other (depression) Sister - Asthma Brother - Depression Brother - Diabetes Father - Hypertension Father - Diabetes Maternal Grandmother - Thyroid Maternal Grandmother - Cancer Maternal Grandfather unknown - Kidney Disease Paternal Grandmother - Cancer Paternal Grandfather - Asthma Daughter - Depression Daughter - Depression Daughter - other (ADD) Daughter REVIEW OF SYSTEMS: General - denies fevers, denies weight loss, den ies anorexia, feels tired all the time Cardiovascular - denies chest pain, denies history of MT Pulmonary - has shortness of breath with exertion, den ies coughing up blood, denies TOB use Gastrointestinal - denies abdominal pain, denies hematemesis Neurological - has migraine headaches, denies se izures, denies history of CVA Genitourinary - has had kidney stones, denies burning with urination, denies blood in urine Hematological - denies spontaneous/prolonged bleeding Skin - denies nonhealing skin wounds Musculoskeletal - has knee pain Endocrine - denies diabetes Psychological ? has anxiety, denies hallucinations Obstetrical: menarche onset is age 12, , first pregna nt at age 21, BCP starting at age 21 for about 1 y, denies breast feeding, denies hormones use at present, has had no menstrual periods for greater than 15 y ? PHYSICAL EXAMINATION: General: The patient is 43 year old female, well tony shed, well hydrated in no acute distress. The patient is oriented to time, place, a nd person. VITALS: Ht: 5'3 Wt: 274# Head ? Normocephalic. EOM intact with sclera clear and no ic terus noted. Wearing glasses. Mouth with mucus membranes moist. Neck - supple with no jugular venous distention noted. Trachea is midline. No carotid bruits noted. No thyroid enlargement or thyroi d nodules detected. No masses noted. Chest/breast ? no asymmetry of breasts noted, bilateral ptot ic breasts, no suspicious skin lesions note d, no nipple discharge and both nipples everted, no breast masses noted Lungs ? clear to auscultation. Normal br eath sounds. No rales/rhonchi/wheezing noted. No labored breathing noted, such as retractions. No c ough heard. Heart ? normal S1 and S2 auscultated. No rubs/clicks/murmu rs noted. Regular rate. Abdomen ? soft and benign. Normal bowel sounds. Difficult to determine if any masses or organomegaly due to body habitus. Extremities ? no calf tenderness noted. No pitting edema not ed. Skin ? normal skin integrity. Lymph ? no cervical adenopathy detected, no supraclavicular adenopathy detected, no axillary adenopathy detected Neurological ? gait normal, no focal deficits noted Psych ? calm and appropriate RADIOLOGIC STUDIES: As Noted ? Assessment IMPRESSION: abnormal right breast radiographs PLAN: I have discussed the above with the patient. I have reassured patient dev t she has no clinical evidence of breast malignancy. Continue with yearly mammograms, bilateral to be done in March 2020. Follow up with me as per needed. Patient to return to her primary physician for medical care. Patient agrees with the above plan I have answered all question s to the patient?s satisfaction and the patient has no further questions. . Diagnoses: (R92.8) Abnormal mammogram (primary encounter tari gnmatthew) Return to Clinic: The patient is instructed to follow-up wit h me as above. I have confirmed and edited as necessary , the PFSH and ROS obtained by others. Ninfa Mcdonald MD Referring Provider: RA GALVEZ [[id number]] Allergies As of Date: 12/05/2019 Noted Allergy Reaction BETA BLOCKERS (BETA-BLOCKERS (BET*2013 15 - Contraindication-Medical Sharma* Comments: Avoid use of beta blockers and KERRIE inhibitors sinc e patient is on venom immunotherapy KERRIE INHIBITORS 11/02/2014 15 - Contraindication-Medical Sharma* Comments: Avoid use of beta blockers and KERRIE inhibitors sinc e patient is on venom immunotherapy Environmental Allergies [Other] 12/25/2006 Comments: Grasses, molds, dust mites, cats, cockroaches LEXAPRO (ESCITALOPRAM OXALATE) 10/30/2018 5 - Intolerance Comments: altered mood PROZAC (FLUOXETINE HCL) 10/30/2018 5 - Intolerance Comments: altered mood VENOM-WASP 09/26/2007 VENOM-YELLOW HORNET 09/26/2007 16 - Unknown Comments: Yellow and white faced hornet VENOM-YELLOW JACKET PROTEIN 09/26/2007 WELLBUTRIN (BUPROPION HCL) 05/08/2019 2 - Rash Comments: Agitation ZOLOFT (SERTRALINE HCL) 10/30/2018 5 - Intolerance Comments: altered mood Date Reviewed: 12/05/2019 Reviewed by: Ninfa Mcdonald - Fully Assessed Reason for Visit: Follow Up [171] Primary Visit Diagnosis:Abnormal mammogram [R92.8] Prescriptions as of 12/05/2019 Sig: GABAPENTIN 100 MG CAPSULE Take 1 capsule by mouth three* GOLD SOLANO MEDICATED BABY 79 %* Apply 1 application to affect * SYMBICORT 160 MCG-4.5 MCG/ACT* Inhale 2 Puffs as instructed * CYCLOBENZAPRINE 10 MG TABLET Take 1 tablet by mouth three * FLUTICASONE PROPIONATE 115 MC* Inhale 2 Puffs as instructed * ALBUTEROL SULFATE 2.5 MG/3 ML* Use 3 mL via nebulizer every * DEXTROAMPHETAMINE-AMPHETAMINE* Take 20 mg by mouth once ngozi * FAMOTIDINE 20 MG TABLET Take 1 tablet by mouth twice * CALCIUM CARBONATE 500 MG (1,2* Take 1 tablet by mouth twice * NAPROXEN 500 MG TABLET Take 1 tablet by mouth twice * B-COMPLEX WITH VITAMIN C TABL* Take 1 tablet by mouth once d * CHOLECALCIFEROL (VITAMIN D3) * Take 1 tablet by mouth once d * MAGNESIUM 250 MG TABLET Take 1 tablet by mouth once d* LACTOBACILLUS RHAMNOSUS GG-LA* Take 1 capsule by mouth daily * ALBUTEROL SULFATE HFA 90 MCG/* Inhale 2 Puffs as instructed * LORAZEPAM 0.5 MG TABLET Take by mouth at bedtime as n* TRIAMCINOLONE ACETONIDE 55 MC* Use 2 Sprays in each nostril * AZELASTINE 137 MCG (0.1 %) NA* Use 2 Sprays in each nostril * GUAIFENESIN ER 600 MG TABLET,* Take 2 tablets by mouth twice * CETIRIZINE 10 MG TABLET Take 1 tablet by mouth once d* KETOTIFEN 0.025 % (0.035 %) E* One drop to each eye 2 to 3 t * RIZATRIPTAN 10 MG TABLET Take 1 tablet by mouth as nee* AMITRIPTYLINE 50 MG TABLET Take 50 mg by mouth daily at * TOPIRAMATE 50 MG TABLET Take 50 mg by mouth twice mara* ZIPRASIDONE 40 MG CAPSULE Take 40 mg by mouth daily wit* VITAMIN B COMPLEX TABLET Take 1 tablet by mouth once d* EPINEPHRINE 0.3 MG/0.3 ML INJ* Inject 0.3 mL intramuscularly * Problem List As Of Date 12/05/2019 Noted Resolved ASTHMA UNSPECIFIED [J45.909] 11/02/2014 Allergic rhinitis due to fungal spores [J30.89] More... Obesity, Class III, BMI 40-49.9 (morbid obesity*11/21/2006 Obstructive sleep apnea [G47.33] 08/19/2007 Toxic effect of venom [T63.91XA] 09/23/2007 11/28/2018 Moderate persistent asthma [J45.40] 11/02/2014 Allergic rhinitis due to dust mite [J30.89] 01/24/2018 Allergic rhinitis due to cat hair [J30.81] 01/24/2018 Seasonal allergic rhinitis due to pollen [J30.1]01/24/2018 Right ureteral calculus [N20.1] 02/15/2018 More... Nonspecific paroxysmal spell [R40.4] 08/14/2018 09/24/2018 Psychogenic nonepileptic seizure [F44.5] 08/14/2018 Transient alteration of awareness [R40.4] 08/14/2018 018 Concern about neurological disease without diag*08/14/2018 1 11/24/2017 Psychosocial stressors [Z65.8] 08/14/2018 Episodic mood disorder (HCC) [F39] 08/14/2018 Convulsions (HCC) [R56.9] 09/23/2018 Other group home (current) drug therapy [Z79.899]08/22/2018 Severe manic bipolar I disorder with psychotic *09/24/2018 Toxic effect of venom [T63.91XA] 11/28/2018 Myalgia [M79.10] 01/29/2019 Chronic pain syndrome [G89.4] 01/29/2019 Concentration deficit [R41.840] 01/29/2019 Screening for breast cancer [Z12.39] 01/29/2019 Bipolar disorder, current episode mixed, modera*04/08/2019 Intractable migraine without status migrainosus*04/08/2019 Intertrigo [L30.4] 04/08/2019 Encounter Status:Closed by MD NINFA MCDONALD on 12/09/19 cnov on 2019-12-03 CNOV Office Visit (FAMPWS) Normal 12-03-[address] [place] [address] [facility] BHAVESH BEAULIEU ([id number]) 1975 [facility] Date Time Provider Department ([id number]) 12/03/19 10:00 AM LUIS NURSE [facility] FAMPWS During your visit today, we recorded the following informati on about you: Marie Angel LPN 12/03/2019 10:31 AM Signed Pt identified by name and birthdate. Allergy injections given subcutaneously. December 03, 2019 10:08 AM Patient states they did not take antihistamine. Immunotherapy Order written on: 09/04/[address] Ramirez [facility] [place] [phone] If patient has asthma, patient states symptoms controlled: Y es Patient did not report a recent illness. Patient on Beta chaim:No Patient has their Epi pen with them, Yes Vial A Content: MIXED VESPID Patient did not have a large late local reaction to previous injection. Size of reaction na Concentration: 300 mcg Dose: 1 ml SQ Arm: left upper arm (proximal) Reaction after 30 minutes: None Vial B Content: WASP Patient did not have a large late local reaction to previous injection. Size of reaction na Concentration: 100 mcg Dose: 1 ml SQ Arm: right upper arm (proximal) Reaction after 30 minutes: None Previously instructed about signs and symptoms of local and systemic reactions. Appointment line and nurses station numb er given as well as injection times at administering location. Marie Angel LPN Check Kiesha Doan LPN Referring Provider: RAMIREZ BLOCK [[id number]] Allergies As of Date: 12/03/2019 Noted Allergy Reaction BETA BLOCKERS (BETA-BLOCKERS (BET*2013 15 - Contraindication-Medical Sharma* Comments: Avoid use of beta blockers and KERRIE inhibitors sinc e patient is on venom immunotherapy KERRIE INHIBITORS 11/02/2014 15 - Contraindication-Medical Sharma* Comments: Avoid use of beta blockers and KERRIE inhibitors sinc e patient is on venom immunotherapy Environmental Allergies [Other] 12/25/2006 Comments: Grasses, molds, dust mites, cats, cockroaches LEXAPRO (ESCITALOPRAM OXALATE) 10/30/2018 5 - Intolerance Comments: altered mood PROZAC (FLUOXETINE HCL) 10/30/2018 5 - Intolerance Comments: altered mood VENOM-WASP 09/26/2007 VENOM-YELLOW HORNET 09/26/2007 16 - Unknown Comments: Yellow and white faced hornet VENOM-YELLOW JACKET PROTEIN 09/26/2007 WELLBUTRIN (BUPROPION HCL) 05/08/2019 2 - Rash Comments: Agitation ZOLOFT (SERTRALINE HCL) 10/30/2018 5 - Intolerance Comments: altered mood Date Reviewed: 11/07/2019 Reviewed by: Ramirez Block - Fully Assessed Reason for Visit: Allergy Injection [9839] Primary Visit Diagnosis:Toxic effect of venom, accidental or unintentional, subsequent encounter [T63.91XD] Prescriptions as of 12/03/2019 Sig: GABAPENTIN 100 MG CAPSULE Take 1 capsule by mouth three* GOLD SOLANO MEDICATED BABY 79 %* Apply 1 application to affect * SYMBICORT 160 MCG-4.5 MCG/ACT* Inhale 2 Puffs as instructed * CYCLOBENZAPRINE 10 MG TABLET Take 1 tablet by mouth three * FLUTICASONE PROPIONATE 115 MC* Inhale 2 Puffs as instructed * ALBUTEROL SULFATE 2.5 MG/3 ML* Use 3 mL via nebulizer every * DEXTROAMPHETAMINE-AMPHETAMINE* Take 20 mg by mouth once ngozi * FAMOTIDINE 20 MG TABLET Take 1 tablet by mouth twice * CALCIUM CARBONATE 500 MG (1,2* Take 1 tablet by mouth twice * NAPROXEN 500 MG TABLET Take 1 tablet by mouth twice * B-COMPLEX WITH VITAMIN C TABL* Take 1 tablet by mouth once d * CHOLECALCIFEROL (VITAMIN D3) * Take 1 tablet by mouth once d * MAGNESIUM 250 MG TABLET Take 1 tablet by mouth once d* LACTOBACILLUS RHAMNOSUS GG-LA* Take 1 capsule by mouth daily * ALBUTEROL SULFATE HFA 90 MCG/* Inhale 2 Puffs as instructed * LORAZEPAM 0.5 MG TABLET Take by mouth at bedtime as n* TRIAMCINOLONE ACETONIDE 55 MC* Use 2 Sprays in each nostril * AZELASTINE 137 MCG (0.1 %) NA* Use 2 Sprays in each nostril * GUAIFENESIN ER 600 MG TABLET,* Take 2 tablets by mouth twice * CETIRIZINE 10 MG TABLET Take 1 tablet by mouth once d* KETOTIFEN 0.025 % (0.035 %) E* One drop to each eye 2 to 3 t * RIZATRIPTAN 10 MG TABLET Take 1 tablet by mouth as nee* AMITRIPTYLINE 50 MG TABLET Take 50 mg by mouth daily at * TOPIRAMATE 50 MG TABLET Take 50 mg by mouth twice mara* ZIPRASIDONE 40 MG CAPSULE Take 40 mg by mouth daily wit* VITAMIN B COMPLEX TABLET Take 1 tablet by mouth once d* EPINEPHRINE 0.3 MG/0.3 ML INJ* Inject 0.3 mL intramuscularly * Problem List As Of Date 12/03/2019 Noted Resolved ASTHMA UNSPECIFIED [J45.909] 11/02/2014 Allergic rhinitis due to fungal spores [J30.89] More... Obesity, Class III, BMI 40-49.9 (morbid obesity*11/21/2006 Obstructive sleep apnea [G47.33] 08/19/2007 Toxic effect of venom [T63.91XA] 09/23/2007 11/28/2018 Moderate persistent asthma [J45.40] 11/02/2014 Allergic rhinitis due to dust mite [J30.89] 01/24/2018 Allergic rhinitis due to cat hair [J30.81] 01/24/2018 Seasonal allergic rhinitis due to pollen [J30.1]01/24/2018 Right ureteral calculus [N20.1] 02/15/2018 More... Nonspecific paroxysmal spell [R40.4] 08/14/2018 09/24/2018 Psychogenic nonepileptic seizure [F44.5] 08/14/2018 Transient alteration of awareness [R40.4] 08/14/2018 018 Concern about neurological disease without diag*08/14/2018 1 11/24/2017 Psychosocial stressors [Z65.8] 08/14/2018 Episodic mood disorder (HCC) [F39] 08/14/2018 Convulsions (HCC) [R56.9] 09/23/2018 Other terminal carman (current) drug therapy [Z79.899]08/22/2018 Severe manic bipolar I disorder with psychotic *09/24/2018 Toxic effect of venom [T63.91XA] 11/28/2018 Myalgia [M79.10] 01/29/2019 Chronic pain syndrome [G89.4] 01/29/2019 Concentration deficit [R41.840] 01/29/2019 Screening for breast cancer [Z12.39] 01/29/2019 Bipolar disorder, current episode mixed, modera*04/08/2019 Intractable migraine without status migrainosus*04/08/2019 Intertrigo [L30.4] 04/08/2019 Visit Notes: >> Marie Angel LPN Wed Dec 03, 2019 10:08 AM Status: Sig santos Pt identified by name and birthdate. Allergy injections given subcutaneously. December 03, 2019 10:08 AM Patient states they did not take antihistamine. Immunotherapy Order written on: 09/04/[address] Ramirez Seg[place] [phone] If patient has asthma, patient states symptoms controlled: Y es Patient did not report a recent illness. Patient on Beta chaim:No Patient has their Epi pen with them, Yes Vial A Content: MIXED VESPID Patient did not have a large late local reaction to previous injection. Size of reaction na Concentration: 300 mcg Dose: 1 ml SQ Arm: left upper arm (proximal) Reaction after 30 minutes: None Vial B Content: WASP Patient did not have a large late local reaction to previous injection. Size of reaction na Concentration: 100 mcg Dose: 1 ml SQ Arm: right upper arm (proximal) Reaction after 30 minutes: None Previously instructed about signs and symptoms of local and systemic reactions. Appointment line and nurses station number given as well as injection times at administering location. Marie Doan LPN Encounter Status:Closed by MRAIE ANGEL LPN on 12/03/19 progress on 2019-11 PROGRESS HNO ID: [id number] Normal 12-02-2019 [facility] Author: Derrell Whitney (Tech) Mckenna ([id number]) Service: ? Author Type: Msws Type: Progress Notes Filed: 12/02/2019 4:31 PM Note Text: Radiology Service Progress Note PATIENT NAME: Bhavesh Beaulieu DATE OF SERVICE: December 02, 2019 TIME: 4:31 PM PATIENT IDENTITY VERIFICATION COMPLETED USING TWO (2) IDENTI FIERS: Name and Date of confirmed by patient verbally. PATIENT GENDER DATA: Female. status: : No status: NO. PATIENT RELEVANT IMPLANT DATA REVIEWED: Not Applicable RADIOLOGY DEPARTMENT: Mammography RIGHT DIAGNOSTIC PERIPHERAL IV DATA: Not applicable SIGNED BY: Derrell Whitney December 02, 2019 4:31 PM chucky diagnostic rt o n 2019-12-02 [facility] * * *Final Report* * * Normal 12-02-2019 [facility] DATE OF EXAM: Dec 02 2019 1:18PM [facility] 0626 - [facility] RT / ([id number]) PROCEDURE REASON: Abnormal ultrasound of breast * * * * Physician Interpretation * * * * RESULT: #[id number] - [facility] RT UNILATERAL RIGHT DIGITAL DIAGNOSTIC MAMMOGRAM WITH CAD: 12/02 HISTORY: Abnormal Ultrasound Of Breast /Short term follow up right breast.-Abnormal Mammogram/Right Diagnostic Mammogram/. RESULT: TECHNIQUE: The study was acquired using full field digital t echnology and interpreted from soft copy. Current study was also evaluated with a Computer Aided Detec tion (CAD). Comparison is made to exams dated: 05/02/2019 mammogram, 2018 mammogram - [facility], 04/07/2019 mammogram, mammogram, and 11/14/2016 mammogram - [facility]. There are scattered fibroglandular elements in right breast. Prior mammographic finding is no longer seen in the right br east. There are biopsy clips in the right breast in the superior medial quadrant. IMPRESSION: POST PROCEDURE MAMMOGRAM FOR MARKER PLACEMENT Celestino youngblood/tierney:12/02/2019 13:28:56 Body Repairer(s): Lilia Galvan, RT(R)(M), [facility] Mammogram BI-RADS: Post-procedure mammogram for marker place ment Multiple national specialty organizations have released ajit st cancer screening guidelines for women at average risk for developin g breast cancer - guidelines that are based on both evidence and opin ion, yet differ on when to start and how often to screen for breast c ancer. With representation from Breast Imaging, Internal Medicine, Women 's Health, Family Medicine, and Medical/Surgical Oncology, the [facility] has carefully reviewed the data and reached the following consen patricia: 1) All women should engage in shared decision-making with eir providers to decide when to start and how often to screen; 2) All women should have the opportunity to start screening mammography at age 40; 3) For women ages 45-55, we recommend annual screening mammo grams; 4) For women ages 55 and over, we support both the transitio n from an annual to a biennial interval if this aligns more with patie nt's values and preferences, or continuation with annual screening; 5) All women should discuss with their providers when to sto p screening mammograms. 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: Tierney Transcribe Date/Time: Dec 02 2019 1:19P Dictated by: CELESTINO ARANGO MD This examination was interpreted and the report reviewed and electronically signed by: CELESTINO ARANGO MD on Dec 02 2019 1:28PM EST [id number] obsolete on 2019-11 OBSOLETE Refill (FAMPWS) Normal 11-19-[address] [facility] BHAVESH BEAULIEU ([id number]) 1975 [facility] Time Provider Department ([id number]) 11/19/19 RA GALVEZ FAMPWS During your visit today, we recorded the following informati on about you: Von Livingston LPN 11/20/2019 10:59 AM Signed Patient phones requesting refills as follows: Pending Prescriptions Disp Refills GABAPENTIN 100 MG CAPSULE 90 capsule 1 Sig: Take 1 capsule by mouth three times daily for 98 days. EPI: No GOLD SOLANO MEDICATED BABY 79 %-4 %-15 % TOPICAL POWDER 1 Meaghan le 3 Sig: Apply 1 application to affected area twice daily as nee ded (intertrigo). EPI: No Please review and advise. Von Yara PRINT PRESS OPERATOR Allergies As of Date: 11/19/2019 Noted Allergy Reaction BETA BLOCKERS (BETA-BLOCKERS (BET*2013 15 - Contraindication-Medical Sharma* Comments: Avoid use of beta blockers and KERRIE inhibitors sinc e patient is on venom immunotherapy KERRIE INHIBITORS 11/02/2014 15 - Contraindication-Medical Sharma* Comments: Avoid use of beta blockers and KERRIE inhibitors sinc e patient is on venom immunotherapy Environmental Allergies [Other] 12/25/2006 Comments: Grasses, molds, dust mites, cats, cockroaches LEXAPRO (ESCITALOPRAM OXALATE) 10/30/2018 5 - Intolerance Comments: altered mood PROZAC (FLUOXETINE HCL) 10/30/2018 5 - Intolerance Comments: altered mood VENOM-WASP 09/26/2007 VENOM-YELLOW HORNET 09/26/2007 16 - Unknown Comments: Yellow and white faced hornet VENOM-YELLOW JACKET PROTEIN 09/26/2007 WELLBUTRIN (BUPROPION HCL) 05/08/2019 2 - Rash Comments: Agitation ZOLOFT (SERTRALINE HCL) 10/30/2018 5 - Intolerance Comments: altered mood Date Reviewed: 11/07/2019 Reviewed by: Ramirez Block - Fully Assessed Reason for Visit: Refill Request [94] Visit Diagnoses:Chronic pain syndrome [G89.4] Myalgia [M79.10] Intertrigo [L30.4] Order(s):gabapentin (NEURONTIN) 100 mg capsuleTake 1 capsu le by mouth three times daily for 98 days.Disp: 90 capsuleRfl: 1 [place] Ulaitm-Oaviod-Xunc Oxide (GOLD SOLANO MEDICATED BABY) 79- 4-15 % powdApply 1 application to affected area twice daily as need ed (intertrigo).Disp: 1 BottleRfl: 3 Prescriptions as of 11/19/2019 Sig: GABAPENTIN 100 MG CAPSULE Take 1 capsule by mouth three* GOLD SOLANO MEDICATED BABY 79 %* Apply 1 application to affect * SYMBICORT 160 MCG-4.5 MCG/ACT* Inhale 2 Puffs as instructed * CYCLOBENZAPRINE 10 MG TABLET Take 1 tablet by mouth three * FLUTICASONE PROPIONATE 115 MC* Inhale 2 Puffs as instructed * ALBUTEROL SULFATE 2.5 MG/3 ML* Use 3 mL via nebulizer every * DEXTROAMPHETAMINE-AMPHETAMINE* Take 20 mg by mouth once ngozi * FAMOTIDINE 20 MG TABLET Take 1 tablet by mouth twice * CALCIUM CARBONATE 500 MG (1,2* Take 1 tablet by mouth twice * NAPROXEN 500 MG TABLET Take 1 tablet by mouth twice * B-COMPLEX WITH VITAMIN C TABL* Take 1 tablet by mouth once d * CHOLECALCIFEROL (VITAMIN D3) * Take 1 tablet by mouth once d * MAGNESIUM 250 MG TABLET Take 1 tablet by mouth once d* LACTOBACILLUS RHAMNOSUS GG-LA* Take 1 capsule by mouth daily * ALBUTEROL SULFATE HFA 90 MCG/* Inhale 2 Puffs as instructed * LORAZEPAM 0.5 MG TABLET Take by mouth at bedtime as n* TRIAMCINOLONE ACETONIDE 55 MC* Use 2 Sprays in each nostril * AZELASTINE 137 MCG (0.1 %) NA* Use 2 Sprays in each nostril * GUAIFENESIN ER 600 MG TABLET,* Take 2 tablets by mouth twice * CETIRIZINE 10 MG TABLET Take 1 tablet by mouth once d* KETOTIFEN 0.025 % (0.035 %) E* One drop to each eye 2 to 3 t * RIZATRIPTAN 10 MG TABLET Take 1 tablet by mouth as nee* AMITRIPTYLINE 50 MG TABLET Take 50 mg by mouth daily at * TOPIRAMATE 50 MG TABLET Take 50 mg by mouth twice mara* ZIPRASIDONE 40 MG CAPSULE Take 40 mg by mouth daily wit* VITAMIN B COMPLEX TABLET Take 1 tablet by mouth once d* EPINEPHRINE 0.3 MG/0.3 ML INJ* Inject 0.3 mL intramuscularly * Problem List As Of Date 11/19/2019 Noted Resolved ASTHMA UNSPECIFIED [J45.909] 11/02/2014 Allergic rhinitis due to fungal spores [J30.89] More... Obesity, Class III, BMI 40-49.9 (morbid obesity*11/21/2006 Obstructive sleep apnea [G47.33] 08/19/2007 Toxic effect of venom [T63.91XA] 09/23/2007 11/28/2018 Moderate persistent asthma [J45.40] 11/02/2014 Allergic rhinitis due to dust mite [J30.89] 01/24/2018 Allergic rhinitis due to cat hair [J30.81] 01/24/2018 Seasonal allergic rhinitis due to pollen [J30.1]01/24/2018 Right ureteral calculus [N20.1] 02/15/2018 More... Nonspecific paroxysmal spell [R40.4] 08/14/2018 09/24/2018 Psychogenic nonepileptic seizure [F44.5] 08/14/2018 Transient alteration of awareness [R40.4] 08/14/2018 018 Concern about neurological disease without diag*08/14/2018 1 11/24/2017 Psychosocial stressors [Z65.8] 08/14/2018 Episodic mood disorder (HCC) [F39] 08/14/2018 Convulsions (HCC) [R56.9] 09/23/2018 Other terminal carman (current) drug therapy [Z79.899]08/22/2018 Severe manic bipolar I disorder with psychotic *09/24/2018 Toxic effect of venom [T63.91XA] 11/28/2018 Myalgia [M79.10] 01/29/2019 Chronic pain syndrome [G89.4] 01/29/2019 Concentration deficit [R41.840] 01/29/2019 Screening for breast cancer [Z12.39] 01/29/2019 Bipolar disorder, current episode mixed, modera*04/08/2019 Intractable migraine without status migrainosus*04/08/2019 Intertrigo [L30.4] 04/08/2019 Prescriptions ordered this encounter Disp Refills Start End GABAPENTIN 100 MG CAPSULE 90 c* 1 11/21/2019 02/27/2020 Route: ORAL Sig: Take 1 capsule by mouth three times daily for 98 days. GOLD SOLANO MEDICATED BABY 79 %-4 %-15* 1 [place]* 3 11/21/2019 Route: TOPICAL Sig: Apply 1 application to affected area twice daily as needed (intertrigo). Medications Discontinued During This Encounter gabapentin (NEURONTIN) 100 mg capsule 90 c* 1 07/14/20192019 Route: ORAL Sig: Take 1 capsule by mouth three times daily for 98 days. Disc: Reason for discontinue is not on file. [place] Xckkio-Lryxqk-Nkph Oxide (GOLD * 1 Bacilio* 3 07/14/20192019 Route: TOPICAL Sig: Apply 1 application to affected area twice daily as needed (intertrigo). Disc: Reason for discontinue is not on file. Encounter Status:Closed by RA GALVEZ DO on 11/21/19 progress on 2019-10 PROGRESS HNO ID: [id number] Normal 11-06-2019 [facility] Author: Ramirez Block Mckenna ([id number]) Service: ? Author Type: Physician Type: Progress Notes Filed: 11/07/2019 3:21 PM Note Text: Bhavesh Beaulieu is a 44 year old female with a history of a llergic rhinitis (cats, cockroach, dust mites, molds, grasses,) mode rate persistent asthma, stinging insect hypersensitivity and obst ructive sleep apnea who presents for a follow-up visit. Her last visit was 08/07/19. C/o increased cough, wheezing and chest tightness with cold weather. Dyspnea has improved compared to her last visit Denies nocturnal awakenings due to respiratory symptoms. Using albuterol a few times per week for acute symptoms. Denies treatment with systemic corticosteroids, ER visits or hospitalizations for respiratory symptoms since her last vis it. For insurance reasons, Symbicort 160?4 .5 was recently presc ribed to replace Advair 115?21. Previously on Breo Ellipta 200-25 wit hout relief. Complained of headaches associated with prior use of Dulera. C/o congestion and intermittent itchy eyes. Denies insect stings since her last visit. She reached the m aintenance dose of venom immunotherapy on November 21, 2018. Denies syste johnnie reactions to immunotherapy. She has epinephrine autoinjectors availabl e at all times. She does not wear a medical alert identification. History of YOBANI. She has been evaluated by sleep medicine. In tolerant to CPAP. She takes Pepcid 20 mg twice daily daily with good control o f her GERD symptoms. Dust mite precautions are in place in the home. No cats in t he home. Her youngest daughter is a kandy in high school. Plays flut e in [email or web address]. Older daughter is a senior at [employer], studying ear ly childhood education, currently student teaching. (09/28/2014: This is a consultation requested by Dr. Michelle Luna for an allergy and immunology evaluation. My final recommendations will be comm unicated back to the requesting physician by way of shared medical record or letter to requesting physician via US mail. Bhavesh Beaulieu is a 38 year old female with a history of a llergic rhinitis (cats, cockroach, dust mites, molds, grasses,) mode rate persistent asthma, stinging insect hypersensitivity and obst ructive sleep apnea who [facility]. Her last visit in is office was October 10, 2011 She c/o a one-month history of increased asthma symptoms tri ggered by upper respiratory infection. She complains of cough. Notes i ntermittent wheezing with physical activity. She has been using albutero l twice daily for acute symptoms. She was treated with Augmentin for a pos sible sinus infection. Denies oral steroids for asthma in the past year. Denies ER visits or admissions for asthma since her last visit. Influe nza vaccine is not up-to-date. The patient discontinued Symbicort shortl y after her last visit when she lost insurance coverage. Overall, her nasal and ocular symptoms are well controlled b y as needed use of Nasonex, astepro and Zyrtec. She denies experiencing insect stings since her last visit. Her EpiPen has . She was on venom immunotherapy beginning in September 30 7 and reached the maintenance dose in February,. She discontinued venom immunotherapy in September, when she lost insurance coverage. She tole rated the immunotherapy without systemic reaction. Denies experiencing any insect stings since starting immunotherapy. Dust mite precautions are not in place in the home (too expe nsive per patient). There is one cat in the home. Her occasion ally smokes in the home. She has not been using CPAP as she does not tolerate the mas k. She complains of frequent GERD symptoms. Previously on Prilo sec 20 mg daily with relief. REVIEW OF SYSTEMS: Negative for fevers, chills, night sweats and unintentional weight loss. Negative for skin rash and skin lesions All other review of systems negative except for those listed above. PAST MEDICAL HISTORY Diagnosis Date - Allergic rhinitis, cause unspecified Allergy, airborne subst - Anxiety and depression - Bee allergy status - Depression - Environmental allergies - GERD (gastroesophageal reflux disease) - Hypercholesteremia 11/2014 - Impaired fasting glucose - Migraines - Morbid obesity (HCC) - Obstructive sleep apnea DX 2006, not on CPAP since 06/2018 - Unspecified asthma(493.90) weather, allergy and exercise triggers - Vitamin D deficiency mometasone-formoterol (DULERA) 100-5 mcg/actuation inhaler I nhale 2 Puffs as instructed twice daily. Use with spacer. Rinse mouth out after use. budesonide-formoterol (SYMBICORT) 160-4.5 mcg/actuation inha ler Inhale 2 Puffs as instructed twice daily. Use with spacer. Rinse mout h out after use. cyclobenzaprine (FLEXERIL) 10 mg tablet Take 1 tablet by marianne th three times daily as needed for Muscle Spasm. fluticasone-salmeterol HFA (ADVAIR HFA) 115-21 mcg/actuation inhaler Inhale 2 Puffs as instructed twice daily. Use with spacer. R inse mouth out after use. albuterol (PROVENTIL) 2.5 mg /3 mL (0.083 %) nebulizer solut ion Use 3 mL via nebulizer every 4 hours as needed for Wheezing/Shortness of Breath. 1 vial contains 3 ml. amphetamine-dextroamphetamine XR (ADDERALL XR) 20 mg 24 hr c apsule Take 20 mg by mouth once daily. famotidine (PEPCID) 20 mg tablet Take 1 tablet by mouth twic e daily. gabapentin (NEURONTIN) 100 mg capsule Take 1 capsule by mout h three times daily for 98 days. [place] Xyxkjs-Xdyusp-Wukw Oxide (GOLD SOLANO MEDICATED BABY) 79- 4-15 % powd Apply 1 application to affected area twice daily as needed ( intertrigo). vsvpvzj-yiazjbfzh-nizfieu D3 (CALCIUM 500+D) 500 mg(1,250mg) -200 unit per tablet Take 1 tablet by mouth twice daily with meals. naproxen (NAPROSYN) 500 mg tablet Take 1 tablet by mouth twi ce daily as needed. B-complex with vitamin C (ALLBEE WITH C) tablet Take 1 table t by mouth once daily. cholecalciferol (VITAMIN D3) 2,000 unit tablet Take 1 tablet by mouth once daily. Magnesium 250 mg tab Take 1 tablet by mouth once daily. L. rhamnosus-L. reuteri (REPHRESH PRO-B) 2.5 billion cell ca p Take 1 capsule by mouth daily at bedtime. albuterol HFA (VENTOLIN HFA) 90 mcg/actuation inhaler Inhale 2 Puffs as instructed every 4 hours as needed. LORazepam (ATIVAN) 0.5 mg tab Take by mouth at bedtime as ne eded. triamcinolone acetonide (NASACORT AQ) 55 mcg nasal inhaler U se 2 Sprays in each nostril every morning. azelastine (ASTELIN,ASTEPRO) 0.1% nasal spray Use 2 Sprays i n each nostril daily at bedtime. guaiFENesin (MUCINEX) 600 mg 12 hr tablet Take 2 tablets by mouth twice daily as needed. cetirizine (ZYRTEC) 10 mg tablet Take 1 tablet by mouth once daily as needed. ketotifen fumarate (ZADITOR) 0.025 % (0.035 %) ophthalmic so lution One drop to each eye 2 to 3 times a day as needed. rizatriptan (MAXALT) 10 mg tablet Take 1 tablet by mouth as needed for Migraine Headache (see administration instructions). May rep eat in 2 hours if needed amitriptyline (ELAVIL) 50 mg tablet Take 50 mg by mouth ngozi y at bedtime. topiramate (TOPAMAX) 50 mg tablet Take 50 mg by mouth twice daily. ziprasidone (GEODON) 40 mg capsule Take 40 mg by mouth daily with dinner. vitamin b complex (B COMPLETE) tab Take 1 tablet by mouth on ce daily. fluticasone-vilanterol (BREO ELLIPTA) 200-25 mcg/dose inhale r Inhale 1 Inhalation as instructed once daily. Rinse mouth out after u se. EPINEPHrine (EPIPEN) 0.3 mg/0.3 mL auto-injector Inject 0.3 mL intramuscularly as needed (for allergic reaction.Seek emerge nt medical care immediately after use.Disp:one 2-pack w/education trainer). ALLERGIES: Allergies As of Date: 11/06/2019 Allergen Noted Reaction BETA BLOCKERS [BETA-BLOCKERS (BET*11/02/2014 Contraindicatio n-Medical Surgical KERRIE INHIBITORS 11/02/2014 Contraindication-Medical Surgical ENVIRONMENTAL ALLERGIES [OTHER] 12/25/2006 LEXAPRO [ESCITALOPRAM OXALATE] 10/30/2018 Intolerance PROZAC [FLUOXETINE HCL] 10/30/2018 Intolerance VENOM-WASP 09/26/2007 VENOM-YELLOW HORNET 09/26/2007 Unknown VENOM-YELLOW JACKET PROTEIN 09/26/2007 WELLBUTRIN [BUPROPION HCL] 05/08/2019 Rash ZOLOFT [SERTRALINE HCL] 10/30/2018 Intolerance Fully Assessed 10/30/2019 PAST SURGICAL HISTORY Procedure Laterality Date - DELIVERY ONLY 2001 , low cervical - LIGATE FALLOPIAN TUBE 2001 Tubal ligation - LITHOTRIPSY [facility] Right 02/18/2018 - STEREOTACTIC LOCALIZATION BREAST BIOPSY Right 05/26/2019 FAMILY HISTORY: Allergic rhinitis:yes: mom, daughter and M Aunt. Asthma: yes: mom. Eczema: no. Cystic fibrosis: no. Immunodeficiency: no. 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 Erin: Jdxg-rc-qmxr carpeting Dust mite controls: Dust mite controls are not in place. Pets in the home: 1 cats, 1 dogs Outdoor animals: There are no outdoor animals Tobacco smoke: Exposure in the home. smokes in the h ome at times. Physical Exam: GENERAL APPEARANCE:Well appearing, alert, in no acute distre ss, well-hydrated, well nourished. Obese HEENT: NCAT. EYES: Mild conjunctival injection of both eyes EARS: External ears normal. Canals clear. TM's normal. NOSE/SINUS: mild edema of the nasal mucosa with scant clear secretions bilaterally THROAT: no erythema NECK:neck supple, no adenopathy HEART:RRR with normal S1 and S2 ,no murmurs, no gallops, no rubs LUNGS: clear to auscultation bilaterally, no wheezes, rales or rhonchi Abdomen: Soft, nontender/nondistended, no masses or hepatosp lenomegaly EXTREMITIES:Extremities normal, No deformities, No skin disc oloration and No edema SKIN: Skin color, texture, turgor normal. No rashes or lesio ns. Lung volumes and DLCO on October 30, 2019: The TLC is reduc ed indicating mild restriction. Elevated residual volume over TLC consiste nt with air trapping. Spirometry on August 04, 2019: Decreased FEV1 and FVC wit h a normal FEV1/FVC ratio. There is not a significant bronchodilator re sponse. Spirometry on August 06, 2018:FVC is below normal. There is no obstruction. There is not a significant bronchodilator respo nse. Spirometry on July 26, 2017: FVC is below normal. There is no obstruction. There is not a significant bronchodilator respo nse. Spirometry on July 05, 2016: FVC is below normal. There is no obstruction. There is not a significant bronchodilator respo nse. Spirometry on November 02, 2014: FVC is mildly impaired. Spirometry otherwise normal The reduction in FVC may indicate a restrictive defect. Recommend lung volumes and diffusing capacity if clinically indicated. Exhaled nitric oxide on August 04, 2019: 15 PPB (Normal) Exhaled nitric oxide on August 06, 2018: 14 PPB Exhaled nitric oxide on July 26, 2017: 17 PPB Exhaled nitric oxide on July 05, 2016: 17 PPB Exhaled nitric oxide on November 02, 2014: 18 PPB (low/janet l) VENOM SKIN TESTS ON 11/02/2014: Positive to white faced horn et and yellow jacket on intradermal testing at 1 mcg per mL concentration. ASSESSMENT/PLAN: 1.) Stinging insect hypersensitivity: Insect sting avoidance measures. The patient should continue to have epinephrine autoinjector s (Epipen, Auvi-Q 0.3 mg, or Adrenaclick 0.3 mg) and benadryl 50 mg yovana ilable at all times in case of insect sting and anaphylactic reaction. Pro per use of epinephrine autoinjectors was reviewed with the patient. Jelena colleen was instructed to seek emergent medical care immediately after u se. A second Epipen may be administered 5 or more minutes after the first if the reaction persists or recurs while awaiting EMS. She should wear a medical alert identification indicating he r stinging insect hypersensitivity. Continue venom immunotherapy as tolerated. Plan to continue at the maintenance dose for 5 years. Patient was reminded that beta chaim medications and kerire inhibitors are contraindicated in patien ts on venom immunotherapy and was instructed to contact the office immed iately if she is prescribed a beta chaim or KERRIE inhibitor in the future. 2.) Moderate persistent asthma: Discussed with the patient that I suspect that her shortness of breath is secondary to obesity and deconditioning rather than asthma. Use Symbicort 160-4.5 2 puffs twice daily. Use with spacer a nd rinse mouth out after use. Continue albuterol HFA inhaler with spacer 2 puffs every 4 h ours as needed. She should continue to receive an annual influenza vaccine. Pneumovax is up-to-date. 3.) Allergic rhinoconjunctivitis: Aggressive environmental c ontrols. Continue Nasacort AQ 2 sprays each nostril once daily in the morning. Continue Astelin 2 sprays each nostril at bedtime. Continue Zaditor one to 2 drops to each eye 2-3 times a day as needed. Continue Zyrtec 10 mg once daily as needed. 4.) GERD: Continue Pepcid 20 mg twice daily as prescribed by her PCP. 5.) Discussed medication dosage, usage, side effects, and go als of treatment in detail. 6.) Follow-up in 4-6 months- patient will return sooner [facility] ld new symptoms or problems arise. MD godfrey Yung on 2019-11-06 GODFREY Office Visit (GALINA) Normal 11-06-[address] [facility] BHAVESH BEAULIEU ([id number]) 1975 [facility] Date Time Provider Department ([id number]) 11/06/19 3:30 PM RAMIREZ BLOCK During your visit today, we recorded the following informati on about you: Pulse Blood pressure Weight 97/minute 139/87 118.8 kg Ramirez Block MD 11/07/2019 3:21 PM Signed Bhavesh Trammell Brittnee is a 44 year old female with a histor y of allergic rhinitis (cats, cockroach, dust mites, molds, grasses,) moderate pers istent asthma, stinging insect hypersensiti vity and obstructive sleep apnea who presents for a follow-up visit. Her last visit was 08/07/19. C/o increased cough, wheezing and chest tightness with cold weather. Dyspnea has improved compared to her last visit Denies nocturnal awakenings due to respiratory symptoms. Using albuterol a few times per week for acute symptoms. Denies treatment with systemic corticosteroids, ER visits or hospitalizations for respiratory symptoms since her last visit. For insurance reasons, Symbicort 160?4 .5 was recently prescribed to replace Advair 115?21. Previously on Breo Ellipta 200-25 without r elief. Complained of headaches associated with prior use of Dulera. C/o congestion and intermittent itchy eyes. Denies insect stings since her last visi t. She reached the maintenance dose of venom immunotherapy on November 21, 2018. Denies systemic reac tions to immunotherapy. She has epinephrine autoinjectors avail able at all times. She does not wear a medical alert identification. History of YOBANI. She has been evaluated by sleep medicine. Intolerant to CPAP. She takes Pepcid 20 mg twice daily daily with good control of her GERD symptoms. Dust mite precautions are in place in the home. No cats in t he home. Her youngest daughter is a kandy in high school. 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 Older daughter is a senior at [employer], studying [employer] education, currently student teaching. (09/28/2014: This is a consultation requested by Dr. Michelle Luna for an allergy and immunology evaluation. My final recommendations will b e communicated back to the requesting physician by way of shared medical record or letter to requesting physician via US mail. Bhavesh Beaulieu is a 38 year old female with a histor y of allergic rhinitis (cats, cockroach, dust mites, molds, grasses,) moderate pers istent asthma, stinging insect hypersensitivity and obstructive sleep apnea who presents to reestablish care. Her last visit in this office was October 10, 2011 She c/o a one-month history of increased asthma symptoms t riggered by upper respiratory infection. She complains of cough. Notes intermi ttent wheezing with physical activity. She has been using albuterol twice d aily for acute symptoms. She was treated with Augmentin for a possible sinu s infection. Denies oral steroids for asthma in the past year. Denies ER visits or admissions for asthma since her last visit. Influenza vaccin e is not up-to-date. The patient discontinued Symbicort shortly aft er her last visit when she lost insurance coverage. Overall, her nasal and ocular symptoms a re well controlled by as needed use of Nasonex, astepro and Zyrtec. She denies experiencing insect stings since her last visit. Her EpiPen has . She was on venom immunotherapy beginning in [facility] 2006 and reached the maintenance dose in February,. She discontinued venom immu notherapy in September, when she lost insurance coverage. She tolerat ed the immunotherapy without systemic reaction. Denies experiencing any insect stings since starting immunotherapy. Dust mite precautions are no t in place in the home (too expensive per patient). There is one cat in the home. Her occasionally smoke s in the home. She has not been using CPAP as she does not tolerate the mas k. She complains of frequent GERD symptoms. Previously on Miladis losec 20 mg daily with relief. REVIEW OF SYSTEMS: Negative for fevers, chills, night sweats and unintentional weight loss. Negative for skin rash and skin lesions All other review of systems negative except for those listed above. PAST MEDICAL HISTORY Diagnosis Date - Allergic rhinitis, cause unspecified Allergy, airborne subst - Anxiety and depression - Bee allergy status - Depression - Environmental allergies - GERD (gastroesophageal reflux disease) - Hypercholesteremia 11/2014 - Impaired fasting glucose - Migraines - Morbid obesity (HCC) - Obstructive sleep apnea DX 2006, not on CPAP since 06/2018 - Unspecified asthma(493.90) weather, allergy and exercise triggers - Vitamin D deficiency mometasone-formoterol (DULERA) 100-5 mcg/actuation inh aler Inhale 2 Puffs as instructed twice daily. Use with spacer. Rinse mouth out aft er use. budesonide-formoterol (SYMBICORT) 160-4. 5 mcg/actuation inhaler Inhale 2 Puffs as instructed twice daily. Use with spacer. Rinse mouth out after use. cyclobenzaprine (FLEXERIL) 10 mg tablet Take 1 tablet by marianne th three times daily as needed for Muscle Spasm. fluticasone-salmeterol HFA (ADVAIR HFA) 115-21 m cg/actuation inhaler Inhale 2 Puffs as instructed twice daily. Use with spacer. Rins e mouth out after use. albuterol (PROVENTIL) 2.5 mg /3 mL (0.083 %) nebulizer solution Use 3 mL via nebulizer every 4 hours as needed for Wheezing/Shortness of Breath. 1 vial contains 3 ml. amphetamine-dextroamphetamine XR (ADDERALL XR) 2 0 mg 24 hr capsule Take 20 mg by mouth once daily. famotidine (PEPCID) 20 mg tablet Take 1 tablet by mouth twic e daily. gabapentin (NEURONTIN) 100 m g capsule Take 1 capsule by mouth three times daily for 98 days. [place] Zrvwfv-Iyvlie-Evft Oxid e (GOLD SOLANO MEDICATED BABY) 79-4-15 % powd Apply 1 application to affected area twice daily as needed (intertri go). bkskcru-szajpexgz-dvqkoee D3 (CALCIUM 500+D) 500 mg(1,250mg) -200 unit per tablet Take 1 tablet by mouth twice daily with meals. naproxen (NAPROSYN) 500 mg t ablet Take 1 tablet by mouth twice daily as needed. B-complex with vitamin C (ALLBEE WITH C) tablet Take 1 tab let by mouth once daily. cholecalciferol (VITAMIN D3) 2,000 unit tablet Take 1 tablet by mouth once daily. Magnesium 250 mg tab Take 1 tablet by mouth once daily. L. rhamnosus-L. reuteri (REP HRESH PRO-B) 2.5 billion cell cap Take 1 capsule by mouth daily at bedtime. albuterol HFA (VENTOLIN HFA) 90 mcg/actuation inhaler Inhale 2 Puffs as instructed every 4 hours as needed. LORazepam (ATIVAN) 0.5 mg tab Take by mouth at bedtime as ne eded. triamcinolone acetonide (LIDIA ACORT AQ) 55 mcg nasal inhaler Use 2 Sprays in each nostril every morning. azelastine (ASTELIN,ASTEPRO) 0.1% nasal spray Use 2 Sprays i n each nostril daily at bedtime. guaiFENesin (MUCINEX) 600 mg 12 hr tablet Take 2 tablets by mouth twice daily as needed. cetirizine (ZYRTEC) 10 mg tablet Take 1 tablet b y mouth once daily as needed. ketotifen fumarate (ZADITOR) 0.025 % (0. 035 %) ophthalmic solution One drop to each eye 2 to 3 times a day as needed. rizatriptan (MAXALT) 10 mg t ablet Take 1 tablet by mouth as needed for Migraine Headache (see administration instructions). May repeat in 2 hours if needed amitriptyline (ELAVIL) 50 mg tablet Take 50 mg by mouth ngozi y at bedtime. topiramate (TOPAMAX) 50 mg tablet Take 50 mg by mouth twice daily. ziprasidone (GEODON) 40 mg capsule Take 40 mg by mouth daily with dinner. vitamin b complex (B COMPLETE) tab Take 1 tablet by mouth on ce daily. fluticasone-vilanterol (BREO ELLIPTA) 200-25 mcg/dose inhale r Inhale 1 Inhalation as instructed once daily. Rinse mouth out after u se. EPINEPHrine (EPIPEN) 0.3 mg/0.3 mL auto- injector Inject 0.3 mL intramuscularly as needed (for allergic reaction.Seek emergent m edical care immediately after use.Disp:one 2-pack w/education trainer). ALLERGIES: Allergies As of Date: 11/06/2019 Allergen Noted Reaction BETA BLOCKERS [BETA-BLOCKERS (BET*2013 Contraindication-Medical Surgical KERRIE INHIBITORS 11/02/2014 Contraindication-Medical Surgical ENVIRONMENTAL ALLERGIES [OTHER] 12/25/2006 LEXAPRO [ESCITALOPRAM OXALATE] 10/30/2018 Intolerance PROZAC [FLUOXETINE HCL] 10/30/2018 Intolerance VENOM-WASP 09/26/2007 VENOM-YELLOW HORNET 09/26/2007 Unknown VENOM-YELLOW JACKET PROTEIN 09/26/2007 WELLBUTRIN [BUPROPION HCL] 05/08/2019 Rash ZOLOFT [SERTRALINE HCL] 10/30/2018 Intolerance Fully Assessed 10/30/2019 PAST SURGICAL HISTORY Procedure Laterality Date - DELIVERY ONLY 2001 , low cervical - LIGATE FALLOPIAN TUBE 2001 Tubal ligation - LITHOTRIPSY [facility] Right 02/18/2018 - STEREOTACTIC LOCALIZATION BREAST BIOPSY Right 05/26/2019 FAMILY HISTORY: Allergic rhinitis:yes: mom, daughter and M Aunt. Asthma: yes: mom. Eczema: no. Cystic fibrosis: no. Immunodeficiency: no. 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 Erin: Skbe-ys-kwzx carpeting Dust mite controls: Dust mite controls are not in place. Pets in the home: 1 cats, 1 dogs Outdoor animals: There are no outdoor animals Tobacco smoke: Exposure in the home. smokes in the h ome at times. Physical Exam: GENERAL APPEARANCE:Well appearing, alert , in no acute distress, well-hydrated, well nourished. Obese HEENT: NCAT. EYES: Mild conjunctival injection of both eyes EARS: External ears normal. Canals clear. TM's normal. NOSE/SINUS: mild edema of the nasal mucosa with scant clear secretions bilaterally THROAT: no erythema NECK:neck supple, no adenopathy HEART:RRR with normal S1 and S2 ,no murmurs, no gallops, no rubs LUNGS: clear to auscultation bilaterally, no wheezes, rales or rhonchi Abdomen: Soft, nontender/nondistended, no masses or hepatosp lenomegaly EXTREMITIES:Extremities normal, No deformities, No ski n discoloration and No edema SKIN: Skin color, texture, turgor normal. No rashes or lesio ns. Lung volumes and DLCO on October 30 19: The TLC is reduced indicating mild restriction. Elevated residual volume over TLC consist ent with air trapping. Spirometry on August 04, 2019: Decreased FEV1 and FVC with a normal FEV1/FVC ratio. There is not a significant bronchodilator response. Spirometry on August 06, 2018:FVC is below normal. There is no obstruction. There is not a significant bronchodilator response. Spirometry on July 26, 2017: FVC is below normal. There is no obstruction. There is not a significant bronchodilator response. Spirometry on July 05, 2016: FVC is below normal. Th ere is no obstruction. There is not a significant bronchodilator response. Spirometry on November 02, 2014: FVC is mildly impaired. Spirometry otherwise normal The reduction in FVC may indicate a restrictive defect. Recommend lung volumes and diffusing capacity if clinically indicated. Exhaled nitric oxide on August 04, 2019: 15 PPB (Normal) Exhaled nitric oxide on August 06, 2018: 14 PPB Exhaled nitric oxide on July 26, 2017: 17 PPB Exhaled nitric oxide on July 05, 2016: 17 PPB Exhaled nitric oxide on November 02, 2014: 18 PPB (low/janet l) VENOM SKIN TESTS ON 11/02/2014: Positive to white faced horn et and yellow jacket on intradermal testing at 1 mcg per mL concentration. ASSESSMENT/PLAN: 1.) Stinging insect hypersensitivity: Insect sting avoidance measures. The patient should continue to have epinephrine autoinjectors (Epipen, Auvi-Q 0.3 mg, or Adrenaclick 0.3 mg) and benadryl 50 mg availabl e at all times in case of insect sting and anaphylactic reaction. Proper use o f epinephrine autoinjectors was reviewed with the patient. Patient was i nstructed to seek emergent medical care immediately after use. A second Epipen may be administered 5 or more minutes after the first if the reacti on persists or recurs while awaiting EMS. She should wear a medical alert identification i ndicating her stinging insect hypersensitivity. Continue venom immunotherapy as tolerate d. Plan to continue at the maintenance dose for 5 years. Patient was reminded that beta block er medications and kerrie inhibitors are contraindicated in patients on venom immunoth erapy and was instructed to contact the office immediately if she is presc ribed a beta chaim or KERRIE inhibitor in the future. 2.) Moderate persistent asthma: Discussed with the patient that I suspect that her shortness of breath is secondary to obesity and deconditioning rather than asthma. Use Symbicort 160-4.5 2 puffs twice ngozi y. Use with spacer and rinse mouth out after use. Continue albuterol HFA inhaler with spacer 2 puffs every 4 hours as needed. She should continue to receive an annual influenza vaccine. Pneumovax is up-to-date. 3.) Allergic rhinoconjunctivitis: Aggressive environmental c ontrols. Continue Nasacort AQ 2 sprays each nostril once daily in the morning. Continue Astelin 2 sprays each nostril at bedtime. Continue Zaditor one to 2 drops to each eye 2-3 times a day as needed. Continue Zyrtec 10 mg once daily as needed. 4.) GERD: Continue Pepcid 20 mg twice daily as prescribed by her PCP. 5.) Discussed medication dos age, usage, side effects, and goals of treatment in detail. 6.) Follow-up in 4-6 months- patient sabino l return sooner should new symptoms or problems arise. MD Edna Yung RN 11/06/2019 3:43 PM Signed Patient here for asthma and allergy follow up visit. using A dvair- not Symbicort yet. Referring Provider: SELF [[id number]] Allergies As of Date: 11/06/2019 Noted Allergy Reaction BETA BLOCKERS (BETA-BLOCKERS (BET*2013 15 - Contraindication-Medical Sharma* Comments: Avoid use of beta blockers and KERRIE inhibitors sinc e patient is on venom immunotherapy KERRIE INHIBITORS 11/02/2014 15 - Contraindication-Medical Sharma* Comments: Avoid use of beta blockers and KERRIE inhibitors sinc e patient is on venom immunotherapy Environmental Allergies [Other] 12/25/2006 Comments: Grasses, molds, dust mites, cats, cockroaches LEXAPRO (ESCITALOPRAM OXALATE) 10/30/2018 5 - Intolerance Comments: altered mood PROZAC (FLUOXETINE HCL) 10/30/2018 5 - Intolerance Comments: altered mood VENOM-WASP 09/26/2007 VENOM-YELLOW HORNET 09/26/2007 16 - Unknown Comments: Yellow and white faced hornet VENOM-YELLOW JACKET PROTEIN 09/26/2007 WELLBUTRIN (BUPROPION HCL) 05/08/2019 2 - Rash Comments: Agitation ZOLOFT (SERTRALINE HCL) 10/30/2018 5 - Intolerance Comments: altered mood Date Reviewed: 11/06/2019 Reviewed by: Ramirez Block - Fully Assessed Reason for Visit: Establish Care [42] Cmt: follow up visit Primary Visit Diagnosis:Mode rate persistent asthma without complication [J45.40] Other Visit Diagnoses:Allergic rhinitis due to fungal spores , unspecified seasonality [J30.89] Allergic rhinitis due to dust mite [J30.89] Allergic rhinitis due to cat hair [J30.81] Seasonal allergic rhinitis due to pollen [J30.1] Obesity, Class III, BMI 40-49.9 (morbid obesity) ([facility]) [E66.01] Prescriptions as of 11/06/2019 Sig: SYMBICORT 160 MCG-4.5 MCG/ACT* Inhale 2 Puffs as instructed * CYCLOBENZAPRINE 10 MG TABLET Take 1 tablet by mouth three * FLUTICASONE PROPIONATE 115 MC* Inhale 2 Puffs as instructed * ALBUTEROL SULFATE 2.5 MG/3 ML* Use 3 mL via nebulizer every * DEXTROAMPHETAMINE-AMPHETAMINE* Take 20 mg by mouth once ngozi * FAMOTIDINE 20 MG TABLET Take 1 tablet by mouth twice * CORN CNMSCG-NINHGG-KAQB OXIDE* Apply 1 application to affect * CALCIUM CARBONATE 500 MG (1,2* Take 1 tablet by mouth twice * NAPROXEN 500 MG TABLET Take 1 tablet by mouth twice * B-COMPLEX WITH VITAMIN C TABL* Take 1 tablet by mouth once d * CHOLECALCIFEROL (VITAMIN D3) * Take 1 tablet by mouth once d * MAGNESIUM 250 MG TABLET Take 1 tablet by mouth once d* LACTOBACILLUS RHAMNOSUS GG-LA* Take 1 capsule by mouth daily * ALBUTEROL SULFATE HFA 90 MCG/* Inhale 2 Puffs as instructed * LORAZEPAM 0.5 MG TABLET Take by mouth at bedtime as n* TRIAMCINOLONE ACETONIDE 55 MC* Use 2 Sprays in each nostril * AZELASTINE 137 MCG (0.1 %) NA* Use 2 Sprays in each nostril * GUAIFENESIN ER 600 MG TABLET,* Take 2 tablets by mouth twice * CETIRIZINE 10 MG TABLET Take 1 tablet by mouth once d* KETOTIFEN 0.025 % (0.035 %) E* One drop to each eye 2 to 3 t * RIZATRIPTAN 10 MG TABLET Take 1 tablet by mouth as nee* AMITRIPTYLINE 50 MG TABLET Take 50 mg by mouth daily at * TOPIRAMATE 50 MG TABLET Take 50 mg by mouth twice mara* ZIPRASIDONE 40 MG CAPSULE Take 40 mg by mouth daily wit* VITAMIN B COMPLEX TABLET Take 1 tablet by mouth once d* EPINEPHRINE 0.3 MG/0.3 ML INJ* Inject 0.3 mL intramuscularly * GABAPENTIN 100 MG CAPSULE Take 1 capsule by mouth three* Problem List As Of Date 11/06/2019 Noted Resolved ASTHMA UNSPECIFIED [J45.909] 11/02/2014 Allergic rhinitis due to fungal spores [J30.89] More... Obesity, Class III, BMI 40-49.9 (morbid obesity*11/21/2006 Obstructive sleep apnea [G47.33] 08/19/2007 Toxic effect of venom [T63.91XA] 09/23/2007 11/28/2018 Moderate persistent asthma [J45.40] 11/02/2014 Allergic rhinitis due to dust mite [J30.89] 01/24/2018 Allergic rhinitis due to cat hair [J30.81] 01/24/2018 Seasonal allergic rhinitis due to pollen [J30.1]01/24/2018 Right ureteral calculus [N20.1] 02/15/2018 More... Nonspecific paroxysmal spell [R40.4] 08/14/2018 09/24/2018 Psychogenic nonepileptic seizure [F44.5] 08/14/2018 Transient alteration of awareness [R40.4] 08/14/2018 018 Concern about neurological disease without diag*08/14/2018 1 11/24/2017 Psychosocial stressors [Z65.8] 08/14/2018 Episodic mood disorder (HCC) [F39] 08/14/2018 Convulsions (HCC) [R56.9] 09/23/2018 Other terminal carman (current) drug therapy [Z79.899]08/22/2018 Severe manic bipolar I disorder with psychotic *09/24/2018 Toxic effect of venom [T63.91XA] 11/28/2018 Myalgia [M79.10] 01/29/2019 Chronic pain syndrome [G89.4] 01/29/2019 Concentration deficit [R41.840] 01/29/2019 Screening for breast cancer [Z12.39] 01/29/2019 Bipolar disorder, current episode mixed, modera*04/08/2019 Intractable migraine without status migrainosus*04/08/2019 Intertrigo [L30.4] 04/08/2019 Visit Notes: >> Edna Tarango RN Stacey Nov 06, 2019 3:39 PM Status: Nora d Patient here for asthma and allergy follow up visit. using A dvair- not Symbicort yet. Medications Discontinued During This Encounter fluticasone-vilanterol (BREO ELLIPTA* 1 Ea* 11 05/21/201810/19 Route: INHALATION Sig: Inhale 1 Inhalation as instructed once ngozi y. Rinse mouth out after use. Disc: Other mometasone-formoterol (DULERA) 100-5* 1 In* 11 10/30/2019 Route: INHALATION Sig: Inhale 2 Puffs as instr ucted twice daily. Use with spacer. Rinse mouth out after use. Disc: Other Disposition: Return in about 4 months (around 03/07/2020). Follow-up and Disposition History Recorded Questionnaire: ASTHMA CONTROL TEST Last 4 weeks, your asthma limited your activity at work or home: -> 3 SOME OF THE TIME Past 4 weeks, how often have you had shortness of breath? -> 3 TO 6 TIMES A WEEK Past 4 weeks: Asthma symptoms woke you at night or earlier than usual? -> 5 NOT AT ALL Past 4 weeks: How often did you use rescue inhal er or nebulizer med? -> 2 ONE OR TWO TIMES PER DAY Rate your Asthma Control during the past 4 weeks: -> 3 SOMEW HAT CONTROLLED ACT TOTAL SCORE: -> 16 Encounter Status:Closed by RAMIREZ BLOCK MD on 11/07/19 obsolete on 2019-10 OBSOLETE Procedure (PULMWS) Normal 10-30-[address] [facility] BHAVESH BEAULIEU ([id number]) 1975 [facility] Date Time Provider Department ([id number]) 10/30/19 11:30 AM RESPIRATORY THERAPIST [facility] WSTRPULMWS During your visit today, we recorded the following informati on about you: Referring Provider: RAMIREZ BLOCK [[id number]] Allergies As of Date: 10/30/2019 Noted Allergy Reaction BETA BLOCKERS (BETA-BLOCKERS (BET*2013 - Contraindication-Medical Sharma* Comments: Avoid use of beta blockers and KERRIE inhibitors sin e patient is on venom immunotherapy KERRIE INHIBITORS 11/02/2014 15 - Contraindication-Medical Sharma* Comments: Avoid use of beta blockers and KERRIE inhibitors sinc e patient is on venom immunotherapy Environmental Allergies [Other] 12/25/2006 Comments: Grasses, molds, dust mites, cats, cockroaches LEXAPRO (ESCITALOPRAM OXALATE) 10/30/2018 5 - Intolerance Comments: altered mood PROZAC (FLUOXETINE HCL) 10/30/2018 5 - Intolerance Comments: altered mood VENOM-WASP 09/26/2007 VENOM-YELLOW HORNET 09/26/2007 16 - Unknown Comments: Yellow and white faced hornet VENOM-YELLOW JACKET PROTEIN 09/26/2007 WELLBUTRIN (BUPROPION HCL) 05/08/2019 2 - Rash Comments: Agitation ZOLOFT (SERTRALINE HCL) 10/30/2018 5 - Intolerance Comments: altered mood Date Reviewed: 10/30/2019 Reviewed by: Derrell Campbell (Tech) - Fully Assessed Reason for Visit: Spirometry [191] Visit Diagnosis:Dyspnea and respiratory abnormalities [R06.0 0, R06.89] Order(s):LUNG VOLUMES [[id number]] Order #: [id number] Prescriptions as of 10/30/2019 Sig: MOMETASONE-FORMOTEROL HFA 100* Inhale 2 Puffs as instructed * CYCLOBENZAPRINE 10 MG TABLET Take 1 tablet by mouth three * FLUTICASONE PROPIONATE-SALMET* Inhale 2 Puffs as instructed * ALBUTEROL SULFATE 2.5 MG/3 ML* Use 3 mL via nebulizer every * DEXTROAMPHETAMINE-AMPHETAMINE* Take 20 mg by mouth once ngozi * FAMOTIDINE 20 MG TABLET Take 1 tablet by mouth twice * GABAPENTIN 100 MG CAPSULE Take 1 capsule by mouth three* CORN QPNOAJ-SWLRUO-IBIF OXIDE* Apply 1 application to affect * CALCIUM CARBONATE 500 MG (1,2* Take 1 tablet by mouth twice * NAPROXEN 500 MG TABLET Take 1 tablet by mouth twice * B-COMPLEX WITH VITAMIN C TABL* Take 1 tablet by mouth once d * CHOLECALCIFEROL (VITAMIN D3) * Take 1 tablet by mouth once d * MAGNESIUM 250 MG TABLET Take 1 tablet by mouth once d* LACTOBACILLUS RHAMNOSUS GG-LA* Take 1 capsule by mouth daily * ALBUTEROL SULFATE HFA 90 MCG/* Inhale 2 Puffs as instructed * LORAZEPAM 0.5 MG TABLET Take by mouth at bedtime as n* TRIAMCINOLONE ACETONIDE 55 MC* Use 2 Sprays in each nostril * AZELASTINE 137 MCG (0.1 %) NA* Use 2 Sprays in each nostril * GUAIFENESIN ER 600 MG TABLET,* Take 2 tablets by mouth twice * CETIRIZINE 10 MG TABLET Take 1 tablet by mouth once d* KETOTIFEN 0.025 % (0.035 %) E* One drop to each eye 2 to 3 t * RIZATRIPTAN 10 MG TABLET Take 1 tablet by mouth as nee* AMITRIPTYLINE 50 MG TABLET Take 50 mg by mouth daily at * TOPIRAMATE 50 MG TABLET Take 50 mg by mouth twice mara* ZIPRASIDONE 40 MG CAPSULE Take 40 mg by mouth daily wit* VITAMIN B COMPLEX TABLET Take 1 tablet by mouth once d* FLUTICASONE FUROATE 200 MCG-V* Inhale 1 Inhalation as instru * EPINEPHRINE 0.3 MG/0.3 ML INJ* Inject 0.3 mL intramuscularly * Problem List As Of Date 10/30/2019 Noted Resolved ASTHMA UNSPECIFIED [J45.909] 11/02/2014 Allergic rhinitis due to fungal spores [J30.89] More... Obesity, Class III, BMI 40-49.9 (morbid obesity*11/21/2006 Obstructive sleep apnea [G47.33] 08/19/2007 Toxic effect of venom [T63.91XA] 09/23/2007 11/28/2018 Moderate persistent asthma [J45.40] 11/02/2014 Allergic rhinitis due to dust mite [J30.89] 01/24/2018 Allergic rhinitis due to cat hair [J30.81] 01/24/2018 Seasonal allergic rhinitis due to pollen [J30.1]01/24/2018 Right ureteral calculus [N20.1] 02/15/2018 More... Nonspecific paroxysmal spell [R40.4] 08/14/2018 09/24/2018 Psychogenic nonepileptic seizure [F44.5] 08/14/2018 Transient alteration of awareness [R40.4] 08/14/2018 018 Concern about neurological disease without diag*08/14/2018 1 11/24/2017 Psychosocial stressors [Z65.8] 08/14/2018 Episodic mood disorder (HCC) [F39] 08/14/2018 Convulsions (HCC) [R56.9] 09/23/2018 Other group home (current) drug therapy [Z79.899]08/22/2018 Severe manic bipolar I disorder with psychotic *09/24/2018 Toxic effect of venom [T63.91XA] 11/28/2018 Myalgia [M79.10] 01/29/2019 Chronic pain syndrome [G89.4] 01/29/2019 Concentration deficit [R41.840] 01/29/2019 Screening for breast cancer [Z12.39] 01/29/2019 Bipolar disorder, current episode mixed, modera*04/08/2019 Intractable migraine without status migrainosus*04/08/2019 Intertrigo [L30.4] 04/08/2019 Encounter Status:Closed by IVETT BARRY RRT on 10/30/19 OBSOLETE Procedure (PULMWS) Normal 10-30-[address] [facility] BHAVESH BEAULIEU ([id number]) 1975 [facility] Date Time Provider Department ([id number]) 10/30/19 11:15 AM RESPIRATORY THERAPIST [facility] WSTRPULMWS During your visit today, we recorded the following informati on about you: Pulse Respiration Weight Height 104/minute 16/minute 118.8 kg 1.575 m Referring Provider: RAMIREZ BLOCK [[id number]] Allergies As of Date: 10/30/2019 Noted Allergy Reaction BETA BLOCKERS (BETA-BLOCKERS (BET*2013 15 - Contraindication-Medical Sharma* Comments: Avoid use of beta blockers and KERRIE inhibitors sin e patient is on venom immunotherapy KERRIE INHIBITORS 11/02/2014 15 - Contraindication-Medical Sharma* Comments: Avoid use of beta blockers and EKRRIE inhibitors sin e patient is on venom immunotherapy Environmental Allergies [Other] 12/25/2006 Comments: Grasses, molds, dust mites, cats, cockroaches LEXAPRO (ESCITALOPRAM OXALATE) 10/30/2018 5 - Intolerance Comments: altered mood PROZAC (FLUOXETINE HCL) 10/30/2018 5 - Intolerance Comments: altered mood VENOM-WASP 09/26/2007 VENOM-YELLOW HORNET 09/26/2007 16 - Unknown Comments: Yellow and white faced hornet VENOM-YELLOW JACKET PROTEIN 09/26/2007 WELLBUTRIN (BUPROPION HCL) 05/08/2019 2 - Rash Comments: Agitation ZOLOFT (SERTRALINE HCL) 10/30/2018 5 - Intolerance Comments: altered mood Date Reviewed: 10/30/2019 Reviewed by: Ivett Quiroga) Derrell Barry - Fully Assessed Reason for Visit: Spirometry [191] Visit Diagnosis:Dyspnea and respiratory abnormalities [R06.0 0, R06.89] Order(s):LUNG DIFFUSION CAPACITY (DLCO) [7888171] Order #: [id number] Prescriptions as of 10/30/2019 Sig: MOMETASONE-FORMOTEROL HFA 100* Inhale 2 Puffs as instructed * CYCLOBENZAPRINE 10 MG TABLET Take 1 tablet by mouth three * FLUTICASONE PROPIONATE-SALMET* Inhale 2 Puffs as instructed * ALBUTEROL SULFATE 2.5 MG/3 ML* Use 3 mL via nebulizer every * DEXTROAMPHETAMINE-AMPHETAMINE* Take 20 mg by mouth once ngozi * FAMOTIDINE 20 MG TABLET Take 1 tablet by mouth twice * GABAPENTIN 100 MG CAPSULE Take 1 capsule by mouth three* CORN FXDTWN-SWTIKE-NRQB OXIDE* Apply 1 application to affect * CALCIUM CARBONATE 500 MG (1,2* Take 1 tablet by mouth twice * NAPROXEN 500 MG TABLET Take 1 tablet by mouth twice * B-COMPLEX WITH VITAMIN C TABL* Take 1 tablet by mouth once d * CHOLECALCIFEROL (VITAMIN D3) * Take 1 tablet by mouth once d * MAGNESIUM 250 MG TABLET Take 1 tablet by mouth once d* LACTOBACILLUS RHAMNOSUS GG-LA* Take 1 capsule by mouth daily * ALBUTEROL SULFATE HFA 90 MCG/* Inhale 2 Puffs as instructed * LORAZEPAM 0.5 MG TABLET Take by mouth at bedtime as n* TRIAMCINOLONE ACETONIDE 55 MC* Use 2 Sprays in each nostril * AZELASTINE 137 MCG (0.1 %) NA* Use 2 Sprays in each nostril * GUAIFENESIN ER 600 MG TABLET,* Take 2 tablets by mouth twice * CETIRIZINE 10 MG TABLET Take 1 tablet by mouth once d* KETOTIFEN 0.025 % (0.035 %) E* One drop to each eye 2 to 3 t * RIZATRIPTAN 10 MG TABLET Take 1 tablet by mouth as nee* AMITRIPTYLINE 50 MG TABLET Take 50 mg by mouth daily at * TOPIRAMATE 50 MG TABLET Take 50 mg by mouth twice mara* ZIPRASIDONE 40 MG CAPSULE Take 40 mg by mouth daily wit* VITAMIN B COMPLEX TABLET Take 1 tablet by mouth once d* FLUTICASONE FUROATE 200 MCG-V* Inhale 1 Inhalation as instru * EPINEPHRINE 0.3 MG/0.3 ML INJ* Inject 0.3 mL intramuscularly * Problem List As Of Date 10/30/2019 Noted Resolved ASTHMA UNSPECIFIED [J45.909] 11/02/2014 Allergic rhinitis due to fungal spores [J30.89] More... Obesity, Class III, BMI 40-49.9 (morbid obesity*11/21/2006 Obstructive sleep apnea [G47.33] 08/19/2007 Toxic effect of venom [T63.91XA] 09/23/2007 11/28/2018 Moderate persistent asthma [J45.40] 11/02/2014 Allergic rhinitis due to dust mite [J30.89] 01/24/2018 Allergic rhinitis due to cat hair [J30.81] 01/24/2018 Seasonal allergic rhinitis due to pollen [J30.1]01/24/2018 Right ureteral calculus [N20.1] 02/15/2018 More... Nonspecific paroxysmal spell [R40.4] 08/14/2018 09/24/2018 Psychogenic nonepileptic seizure [F44.5] 08/14/2018 Transient alteration of awareness [R40.4] 08/14/2018 018 Concern about neurological disease without diag*08/14/2018 1 11/24/2017 Psychosocial stressors [Z65.8] 08/14/2018 Episodic mood disorder (HCC) [F39] 08/14/2018 Convulsions (HCC) [R56.9] 09/23/2018 Other group home (current) drug therapy [Z79.899]08/22/2018 Severe manic bipolar I disorder with psychotic *09/24/2018 Toxic effect of venom [T63.91XA] 11/28/2018 Myalgia [M79.10] 01/29/2019 Chronic pain syndrome [G89.4] 01/29/2019 Concentration deficit [R41.840] 01/29/2019 Screening for breast cancer [Z12.39] 01/29/2019 Bipolar disorder, current episode mixed, modera*04/08/2019 Intractable migraine without status migrainosus*04/08/2019 Intertrigo [L30.4] 04/08/2019 Encounter Status:Closed by IVETT BARRY RRT on 10/30/19 progress on 2019-10 PROGRESS HNO ID: [id number] Normal 10-22-2019 [facility] Author: Meryl (Traffic Officer) Codey Hallman ([id number]) Service: ? Author Type: Nurse Practitioner Type: Progress Notes Filed: 10/22/2019 1:49 PM Note Text: This is a 44 year old female who presents today with: Patient presents with: urgent care follow up: ear infection/ busted ear drum HISTORY OF PRESENT ILLNESS: Bhavesh Beaulieu is a 44 year old female. Patient presents w ith: urgent care follow up: ear infection/ busted ear drum Pt presents today to follow-up from recent urgent care visit s. She was initially seen on 10/06. Treated w/ ofloxacin and amox. Returned on 10/10/19 and was given stronger ear drops. (ci prodex) She also had myofacial release to the the left TMJ. She was given flexeril for this. She reports she has been us ing this at night with relief. She does report improvement of symptoms. She reports hearing is okay out of the left ear. She has no dizziness. She has no drainage from the ear. No tinnitus. Reports that she may be starting with URI symptoms, again, t molly. PAST MEDICAL HISTORY: PAST MEDICAL HISTORY Diagnosis Date - Allergic rhinitis, cause unspecified Allergy, airborne subst - Anxiety and depression - Bee allergy status - Depression - Environmental allergies - GERD (gastroesophageal reflux disease) - Hypercholesteremia 11/2014 - Impaired fasting glucose - Migraines - Morbid obesity (HCC) - Obstructive sleep apnea DX 2006, not on CPAP since 06/2018 - Unspecified asthma(493.90) weather, allergy and exercise triggers - Vitamin D deficiency PAST SURGICAL HISTORY Procedure Laterality Date - DELIVERY ONLY 2001 , low cervical - LIGATE FALLOPIAN TUBE 2001 Tubal ligation - [facility]OTRIPSY [facility] Right 02/18/2018 - STEREOTACTIC LOCALIZATION BREAST BIOPSY Right 05/26/2019 ALLERGIES Beta Blockers [Beta-Blockers (Beta-Adrenergic Bloc aj Agts)]; Kerrie Inhibitors; Environmental Allergies [Other]; Lexapro [Es citalopram Oxalate]; Prozac [Fluoxetine Hcl]; Venom-Wasp; Venom-Yellow Hornet; Venom-Yellow Jacket Protein; Wellbutrin [Bupropion Hcl]; Zol oft [Sertraline Hcl] MEDICATIONS Current Outpatient Medications Medication Sig - cyclobenzaprine (FLEXERIL) 10 mg tablet Take 1 tablet by m outh three times daily as needed for Muscle Spasm. - fluticasone-salmeterol HFA (ADVAIR HFA) 115-21 mcg/actuati on inhaler Inhale 2 Puffs as instructed twice daily. Use with spacer. R inse mouth out after use. - albuterol (PROVENTIL) 2.5 mg /3 mL (0.083 %) nebulizer estevan ution Use 3 mL via nebulizer every 4 hours as needed for Wheezing/Shortness of Breath. 1 vial contains 3 ml. - amphetamine-dextroamphetamine XR (ADDERALL XR) 20 mg 24 hr capsule Take 20 mg by mouth once daily. - famotidine (PEPCID) 20 mg tablet Take 1 tablet by mouth tw ice daily. - gabapentin (NEURONTIN) 100 mg capsule Take 1 capsule by mo uth three times daily for 98 days. - [place] Oglbxs-Dppqhf-Knub Oxide (GOLD SOLANO MEDICATED BABY) 7 9-4-15 % powd Apply 1 application to affected area twice daily as needed ( intertrigo). - bwvyqsk-cxnzwivik-cqonakd D3 (CALCIUM 500+D) 500 mg(1,250m g) -200 unit per tablet Take 1 tablet by mouth twice daily with meals. - naproxen (NAPROSYN) 500 mg tablet Take 1 tablet by mouth t wice daily as needed. - B-complex with vitamin C (ALLBEE WITH C) tablet Take 1 tab let by mouth once daily. - cholecalciferol (VITAMIN D3) 2,000 unit tablet Take 1 tabl et by mouth once daily. - Magnesium 250 mg tab Take 1 tablet by mouth once daily. - L. rhamnosus-L. reuteri (REPHRESH PRO-B) 2.5 billion cell cap Take 1 capsule by mouth daily at bedtime. - albuterol HFA (VENTOLIN HFA) 90 mcg/actuation inhaler Inha le 2 Puffs as instructed every 4 hours as needed. - LORazepam (ATIVAN) 0.5 mg tab Take by mouth at bedtime as needed. - triamcinolone acetonide (NASACORT AQ) 55 mcg nasal inhaler Use 2 Sprays in each nostril every morning. - azelastine (ASTELIN,ASTEPRO) 0.1% nasal spray Use 2 Sprays in each nostril daily at bedtime. - guaiFENesin (MUCINEX) 600 mg 12 hr tablet Take 2 tablets b y mouth twice daily as needed. - cetirizine (ZYRTEC) 10 mg tablet Take 1 tablet by mouth on ce daily as needed. - ketotifen fumarate (ZADITOR) 0.025 % (0.035 %) ophthalmic solution One drop to each eye 2 to 3 times a day as needed. - rizatriptan (MAXALT) 10 mg tablet Take 1 tablet by mouth a s needed for Migraine Headache (see administration instructions). May rep eat in 2 hours if needed - amitriptyline (ELAVIL) 50 mg tablet Take 50 mg by mouth da jeri at bedtime. - topiramate (TOPAMAX) 50 mg tablet Take 50 mg by mouth twic e daily. - ziprasidone (GEODON) 40 mg capsule Take 40 mg by mouth mara ly with dinner. - vitamin b complex (B COMPLETE) tab Take 1 tablet by mouth once daily. - fluticasone-vilanterol (BREO ELLIPTA) 200-25 mcg/dose inha ler Inhale 1 Inhalation as instructed once daily. Rinse mouth out after u se. - EPINEPHrine (EPIPEN) 0.3 mg/0.3 mL auto-injector Inject 0. 3 mL intramuscularly as needed (for allergic reaction.Seek emerge nt medical care immediately after use.Disp:one 2-pack w/education trainer). No current facility-administered medications for this visit. FAMILY HISTORY Problem Relation Age of Onset - Asthma Mother - Thyroid Mother - COPD Mother - other (depression) Mother - other (depression) Sister - Asthma Brother - Depression Brother - Diabetes Father - Hypertension Father - Diabetes Maternal Grandmother - Thyroid Maternal Grandmother - Cancer Maternal Grandfather unknown - Kidney Disease Paternal Grandmother - Cancer Paternal Grandfather - Asthma Daughter - Depression Daughter - Depression Daughter - other (ADD) Daughter Social History Tobacco Use - Smoking status: Never Smoker - Smokeless tobacco: Never Used Substance Use Topics - Alcohol use: No - Drug use: No EXAM: BP 128/86 (BP Site: Left Arm, BP Position: Sitting, BP Cuff Size: Large Adult) Pulse 95 Resp 18 Wt 117.5 kg (259 lb) SpO2 98 % BMI 47.37 kg/m? PHYSICAL EXAM: General Appearance: Well appearing, alert, in no acute distr ess, well-hydrated, well nourished.. Skin: Skin color, texture, turgor normal, no suspicious rash es or lesions. Head: Normocephalic, no masses, lesions, tenderness or abnor malities. Eyes: Anicteric sclera. Pupils are equally round and reactiv e to light. Extraocular movements are intact. . Ears: External ears normal, canals clear, Positive findings: R TM: air/fluid interface visualized, Left TM: very prominent bony structures. No erythema, no drainage. Nose/Sinuses: Nares normal, septum midline, mucosa normal, n o drainage or sinus tenderness. Oropharynx: Lips, mucosa, and tongue normal, teeth and gums normal, oropharynx normal. Neck: Supple, no adenopathy Lungs: lungs clear to auscultation. No wheezing, rhonchi, ra les. Heart: RRR without murmur, gallop, or rubs. No ectopy. Neurologic: Gait normal. ASSESSMENT/PLAN: 1. Acute otitis media, left - ICD9: 382.9, ICD10: H66.92 (pr imary diagnosis) - resolved. Continue to monitor. Notify provider of any recurrence of symptoms. 2. Arthralgia of left temporomandibular joint - ICD9: 524.62 , ICD10: M26.622 Improving: Refill: - CYCLOBENZAPRINE 10 MG TABLET Discussed treatment plan and patient voices understanding. Patient's questions answered appropriately. Medications and potential side effects were discussed and pa tient voices understanding. Return to the office as scheduled or as needed for worsening /no improvement. Meryl Alegre APRN.EVIDENCE SPECIALIST cnov on 2019-10-22 CNOV Office Visit (FAMPWS) Normal 10-22-20 [facility] BHAVESH BEAULIEU ([id number]) 1975 [facility] Date Time Provider Department ([id number]) 10/22/19 1:00 PM [facility]EVIDENCE SPECIAL[facility] During your visit today, we recorded the following informati on about you: Pulse Respiration Blood pressure Weight 95/minute 18/minute 128/86 117.5 kg Meryl Alegre APRN.CNP 10/22/2019 1:49 PM Signed This is a 44 year old female who presents today with: Patient presents with: urgent care follow up: ear infection/ busted ear drum HISTORY OF PRESENT ILLNESS: Bhavesh Beaulieu is a 44 year old female. Patient presents w ith: urgent care follow up: ear infection/ busted ear drum Pt presents today to follow-up from recent urgent care visit s. She was initially seen on 10/06. Treated w/ ofloxacin and amox. Returned on 10/10/19 and was given stronger ear drops. (ci prodex) She also had myofacial release to the the left TMJ. She was given flexeril for this. She reports she has been using this at night with relief. She does report improvement of symptoms. She reports hearing is okay out of the left ear. She has no dizziness. She has no drainage from the ear. No tinnitus. Reports that she may be starting with URI symptoms, again, t molly. PAST MEDICAL HISTORY: PAST MEDICAL HISTORY Diagnosis Date - Allergic rhinitis, cause unspecified Allergy, airborne subst - Anxiety and depression - Bee allergy status - Depression - Environmental allergies - GERD (gastroesophageal reflux disease) - Hypercholesteremia 11/2014 - Impaired fasting glucose - Migraines - Morbid obesity (HCC) - Obstructive sleep apnea DX 2006, not on CPAP since 06/2018 - Unspecified asthma(493.90) weather, allergy and exercise triggers - Vitamin D deficiency PAST SURGICAL HISTORY Procedure Laterality Date - DELIVERY ONLY 2001 , low cervical - LIGATE FALLOPIAN TUBE 2001 Tubal ligation - [facility]OTRIPSY [facility] Right 02/18/2018 - STEREOTACTIC LOCALIZATION BREAST BIOPSY Right 05/26/2019 ALLERGIES Beta Blockers [Beta-Blockers (Beta-Adrenergi c Blocking Agts)]; Kerrie Inhibitors; Environmental Allergies [Other]; Lexapro [ Escitalopram Oxalate]; Prozac [Fluoxetine Hcl]; Venom-Wasp; Venom-Yello w Hornet; Venom-Yellow Jacket Protein; Wellbutrin [Bupropion Hcl]; Zoloft [Sertraline Hcl] MEDICATIONS Current Outpatient Medications Medication Sig - cyclobenzaprine (FLEXERIL) 10 mg tablet Take 1 table t by mouth three times daily as needed for Muscle Spasm. - fluticasone-salmeterol HFA (ADVAIR HFA) 115-21 mcg/actuation inhaler Inhale 2 Puffs as instructed twice daily. Use with spacer. Rins e mouth out after use. - albuterol (PROVENTIL) 2.5 mg /3 mL (0. 083 %) nebulizer solution Use 3 mL via nebulizer every 4 hours as needed for Wheezing/Shortness of Breath. 1 vial contains 3 ml. - amphetamine-dextroamphetam ine XR (ADDERALL XR) 20 mg 24 hr capsule Take 20 mg by mouth once daily. - famotidine (PEPCID) 20 mg tablet Take 1 tablet by mouth tw ice daily. - gabapentin (NEURONTIN) 100 mg capsule Take 1 capsule by mouth three times daily for 98 days. - [place] Tyxtjm-Ooizjh-Kjpe Ox yanna (GOLD SOLANO MEDICATED BABY) 79-4-15 % powd Apply 1 application to affected area twice daily as needed (intert blaine). - refprlf-baihnmygc-nmcpgkw D3 (CALCIUM 500+D) 500 mg( 1,250mg) -200 unit per tablet Take 1 tablet by mouth twice daily with meals. - naproxen (NAPROSYN) 500 mg tablet Take 1 tablet by mouth t wice daily as needed. - B-complex with vitamin C (ALLBEE WITH C) table t Take 1 tablet by mouth once daily. - cholecalciferol (VITAMIN D3) 2,000 unit tablet Take 1 tablet by mouth once daily. - Magnesium 250 mg tab Take 1 tablet by mouth once daily. - L. rhamnosus-L. reuteri (REPHRESH PRO- B) 2.5 billion cell cap Take 1 capsule by mouth daily at bedtime. - albuterol HFA (VENTOLIN HFA) 90 mcg/actuation inhaler Inha le 2 Puffs as instructed every 4 hours as needed. - LORazepam (ATIVAN) 0.5 mg tab Take by mouth at bedtime as needed. - triamcinolone acetonide (NASACORT AQ) 55 mcg nasal i nhaler Use 2 Sprays in each nostril every morning. - azelastine (ASTELIN,ASTEPRO) 0.1% nasal spray Use 2 Sprays in each nostril daily at bedtime. - guaiFENesin (MUCINEX) 600 mg 12 hr tablet Take 2 tablets by mouth twice daily as needed. - cetirizine (ZYRTEC) 10 mg tablet Take 1 tablet by mouth once daily as needed. - ketotifen fumarate (ZADITOR) 0.025 % (0.035 %) ophthalmic solution One drop to each eye 2 to 3 times a day as needed. - rizatriptan (MAXALT) 10 mg tablet Take 1 tablet by mouth a s needed for Migraine Headache (see administration instructio ns). May repeat in 2 hours if needed - amitriptyline (ELAVIL) 50 mg tablet Take 50 mg by mouth daily at bedtime. - topiramate (TOPAMAX) 50 mg tablet Take 50 mg by mouth twic e daily. - ziprasidone (GEODON) 40 mg capsule Take 40 mg by mouth d aily with dinner. - vitamin b complex (B COMPLETE) tab Take 1 tablet by mouth once daily. - fluticasone-vilanterol (BREO ELLIPTA) 200-25 mcg/dose inha ler Inhale 1 Inhalation as instructed once daily. Rinse mouth out after u se. - EPINEPHrine (EPIPEN) 0.3 mg/0.3 mL auto-injector Inject 0. 3 mL intramuscularly as needed (for allergic reaction.Seek [facility] medical care immediately after use.Disp:one 2-pack w/education trainer). No current facility-administered medications for this visit. FAMILY HISTORY Problem Relation Age of Onset - Asthma Mother - Thyroid Mother - COPD Mother - other (depression) Mother - other (depression) Sister - Asthma Brother - Depression Brother - Diabetes Father - Hypertension Father - Diabetes Maternal Grandmother - Thyroid Maternal Grandmother - Cancer Maternal Grandfather unknown - Kidney Disease Paternal Grandmother - Cancer Paternal Grandfather - Asthma Daughter - Depression Daughter - Depression Daughter - other (ADD) Daughter Social History Tobacco Use - Smoking status: Never Smoker - Smokeless tobacco: Never Used Substance Use Topics - Alcohol use: No - Drug use: No EXAM: BP 128/86 (BP Site: Left Arm, BP Positio n: Sitting, BP Cuff Size: Large Adult) Pulse 95 Resp 18 Wt 117.5 kg (259 lb) SpO2 98% BMI 47.37 kg/m? PHYSICAL EXAM: General Appearance: Well mildred earing, alert, in no acute distress, well-hydrated, well nourished.. Skin: Skin color, texture, turgor normal, no suspicious rash es or lesions. Head: Normocephalic, no masses, lesions, tenderness or abnor malities. Eyes: Anicteric sclera. Pupils are equally round and reactiv e to light. Extraocular movements are intact. . Ears: External ears normal, canals clear, Positive fin dings: R TM: air/fluid interface visualized, Left TM: very prom inent bony structures. No erythema, no drainage. Nose/Sinuses: Nares normal, septum midline, mucosa normal, no drainage or sinus tenderness. Oropharynx: Lips, mucosa, and tongue nor mal, teeth and gums normal, oropharynx normal. Neck: Supple, no adenopathy Lungs: lungs clear to auscultation. No wheezing, rhonchi, ra les. Heart: RRR without murmur, gallop, or rubs. No ectopy. Neurologic: Gait normal. ASSESSMENT/PLAN: 1. Acute otitis media, left - ICD9: 382.9, ICD10: H66. 92 (primary diagnosis) - resolved. Continue to monitor. Notify provider of any recurrence of symptoms. 2. Arthralgia of left temporomandibular joint - ICD9: 524.62, ICD10: M26.622 Improving: Refill: - CYCLOBENZAPRINE 10 MG TABLET Discussed treatment plan and patient voices understanding. Patient's questions answered appropriately. Medications and potential side effects were discussed and pa tient voices understanding. Return to the office as scheduled or as needed for wor sening/no improvement. Meryl Alegre APRN.EVIDENCE SPECIALIST Referring Provider: SELF [[id number]] Allergies As of Date: 10/22/2019 Noted Allergy Reaction BETA BLOCKERS (BETA-BLOCKERS (BET*2013 15 - Contraindication-Medical Sharma* Comments: Avoid use of beta blockers and KERRIE inhibitors sinc e patient is on venom immunotherapy KERRIE INHIBITORS 11/02/2014 15 - Contraindication-Medical Sharma* Comments: Avoid use of beta blockers and KERRIE inhibitors sinc e patient is on venom immunotherapy Environmental Allergies [Other] 12/25/2006 Comments: Grasses, molds, dust mites, cats, cockroaches LEXAPRO (ESCITALOPRAM OXALATE) 10/30/2018 5 - Intolerance Comments: altered mood PROZAC (FLUOXETINE HCL) 10/30/2018 5 - Intolerance Comments: altered mood VENOM-WASP 09/26/2007 VENOM-YELLOW HORNET 09/26/2007 16 - Unknown Comments: Yellow and white faced hornet VENOM-YELLOW JACKET PROTEIN 09/26/2007 WELLBUTRIN (BUPROPION HCL) 05/08/2019 2 - Rash Comments: Agitation ZOLOFT (SERTRALINE HCL) 10/30/2018 5 - Intolerance Comments: altered mood Date Reviewed: 10/22/2019 Reviewed by: Umu Valencia Ma - Fully Assessed Reason for Visit: urgent care follow up [Other] Cmt: ear infection/ busted ear drum Primary Visit Diagnosis:Acute otitis media, left [H66.92] Other Visit Diagnoses:Arthralgia of left temporomandibular j oint [M26.622] Arthritis [M19.90] Order(s):cyclobenzaprine (FLEXERIL) 10 mg tabletTake 1 tablet by mouth three times daily as needed for Muscle Spasm.Disp: 30 tabletRfl: 0 Prescriptions as of 10/22/2019 Sig: CYCLOBENZAPRINE 10 MG TABLET Take 1 tablet by mouth three * FLUTICASONE PROPIONATE-SALMET* Inhale 2 Puffs as instructed * ALBUTEROL SULFATE 2.5 MG/3 ML* Use 3 mL via nebulizer every * DEXTROAMPHETAMINE-AMPHETAMINE* Take 20 mg by mouth once ngozi * FAMOTIDINE 20 MG TABLET Take 1 tablet by mouth twice * GABAPENTIN 100 MG CAPSULE Take 1 capsule by mouth three* CORN WMATVD-TIPEWZ-JJLE OXIDE* Apply 1 application to affect * CALCIUM CARBONATE 500 MG (1,2* Take 1 tablet by mouth twice * NAPROXEN 500 MG TABLET Take 1 tablet by mouth twice * B-COMPLEX WITH VITAMIN C TABL* Take 1 tablet by mouth once d * CHOLECALCIFEROL (VITAMIN D3) * Take 1 tablet by mouth once d * MAGNESIUM 250 MG TABLET Take 1 tablet by mouth once d* LACTOBACILLUS RHAMNOSUS GG-LA* Take 1 capsule by mouth daily * ALBUTEROL SULFATE HFA 90 MCG/* Inhale 2 Puffs as instructed * LORAZEPAM 0.5 MG TABLET Take by mouth at bedtime as n* TRIAMCINOLONE ACETONIDE 55 MC* Use 2 Sprays in each nostril * AZELASTINE 137 MCG (0.1 %) NA* Use 2 Sprays in each nostril * GUAIFENESIN ER 600 MG TABLET,* Take 2 tablets by mouth twice * CETIRIZINE 10 MG TABLET Take 1 tablet by mouth once d* KETOTIFEN 0.025 % (0.035 %) E* One drop to each eye 2 to 3 t * RIZATRIPTAN 10 MG TABLET Take 1 tablet by mouth as nee* AMITRIPTYLINE 50 MG TABLET Take 50 mg by mouth daily at * TOPIRAMATE 50 MG TABLET Take 50 mg by mouth twice mara* ZIPRASIDONE 40 MG CAPSULE Take 40 mg by mouth daily wit* VITAMIN B COMPLEX TABLET Take 1 tablet by mouth once d* FLUTICASONE FUROATE 200 MCG-V* Inhale 1 Inhalation as instru * EPINEPHRINE 0.3 MG/0.3 ML INJ* Inject 0.3 mL intramuscularly * Problem List As Of Date 10/22/2019 Noted Resolved ASTHMA UNSPECIFIED [J45.909] 11/02/2014 Allergic rhinitis due to fungal spores [J30.89] More... Obesity, Class III, BMI 40-49.9 (morbid obesity*11/21/2006 Obstructive sleep apnea [G47.33] 08/19/2007 Toxic effect of venom [T63.91XA] 09/23/2007 11/28/2018 Moderate persistent asthma [J45.40] 11/02/2014 Allergic rhinitis due to dust mite [J30.89] 01/24/2018 Allergic rhinitis due to cat hair [J30.81] 01/24/2018 Seasonal allergic rhinitis due to pollen [J30.1]01/24/2018 Right ureteral calculus [N20.1] 02/15/2018 More... Nonspecific paroxysmal spell [R40.4] 08/14/2018 09/24/2018 Psychogenic nonepileptic seizure [F44.5] 08/14/2018 Transient alteration of awareness [R40.4] 08/14/2018 018 Concern about neurological disease without diag*08/14/2018 1 11/24/2017 Psychosocial stressors [Z65.8] 08/14/2018 Episodic mood disorder (HCC) [F39] 08/14/2018 Convulsions (HCC) [R56.9] 09/23/2018 Other group home (current) drug therapy [Z79.899]08/22/2018 Severe manic bipolar I disorder with psychotic *09/24/2018 Toxic effect of venom [T63.91XA] 11/28/2018 Myalgia [M79.10] 01/29/2019 Chronic pain syndrome [G89.4] 01/29/2019 Concentration deficit [R41.840] 01/29/2019 Screening for breast cancer [Z12.39] 01/29/2019 Bipolar disorder, current episode mixed, modera*04/08/2019 Intractable migraine without status migrainosus*04/08/2019 Intertrigo [L30.4] 04/08/2019 Prescriptions ordered this encounter Disp Refills Start End CYCLOBENZAPRINE 10 MG TABLET 30 t* 0 10/22/2019 Route: ORAL Sig: Take 1 tablet by mouth three times daily as needed for Muscle Spasm. Medications Discontinued During This Encounter cyclobenzaprine (FLEXERIL) 10 mg tab* 30 t* 0 10/10/201910/22/2019 Route: ORAL Sig: Take 1 tablet by mouth three times daily as needed for Muscle Spasm. Disc: Reason for discontinue is not on file. Encounter Status:Closed by MERYL ALEGRE CNP on 10/22/19 [facility] Office Visit (FAMPWS) Normal 10-22-20 [facility] BHAVESH BEAULIEU ([id number]) 1975 [facility] Date Time Provider Department ([id number]) 10/22/19 10:00 AM [facility] NURSE LOUISA FAMPWS During your visit today, we recorded the following informati on about you: Marie Angel LPN 10/22/2019 10:23 AM Addendum Pt identified by name and birthdate. Allergy injections given subcutaneously. October 22, 2019 9:58 AM Patient states they did not take antihistamine. Immunotherapy Order written on: 09/04/[address] Ramirez [place] [phone] If patient has asthma, patient states symptoms controlled: Y es Patient did not report a recent illness. Patient on Beta chaim:No Patient has their Epi pen with them, Yes Vial A Content: MIXED VESPID Patient did not have a large late local reaction to previous injection. Size of reaction na Concentration: 300 mcg Dose: 0.8 ml SQ Arm: right upper arm (proximal) Reaction after 30 minutes: None Vial B Content: WASP Patient did not have a large late local reaction to previous injection. Size of reaction na Concentration: 100 mcg Dose: 0.8 ml SQ Arm: left upper arm (proximal) Reaction after 30 minutes: None Previously instructed about signs and symptoms of local and systemic reactions. Appointment line and nurses station numb er given as well as injection times at administering location. Marie Angel LPN IT Check Rl Abbott LPN Referring Provider: RAMIREZ BLOCK [[id number]] Allergies As of Date: 10/22/2019 Noted Allergy Reaction BETA BLOCKERS (BETA-BLOCKERS (BET*2013 15 - Contraindication-Medical Sharma* Comments: Avoid use of beta blockers and KERRIE inhibitors sinc e patient is on venom immunotherapy KERRIE INHIBITORS 11/02/2014 15 - Contraindication-Medical Sharma* Comments: Avoid use of beta blockers and KERRIE inhibitors sinc e patient is on venom immunotherapy Environmental Allergies [Other] 12/25/2006 Comments: Grasses, molds, dust mites, cats, cockroaches LEXAPRO (ESCITALOPRAM OXALATE) 10/30/2018 5 - Intolerance Comments: altered mood PROZAC (FLUOXETINE HCL) 10/30/2018 5 - Intolerance Comments: altered mood VENOM-WASP 09/26/2007 VENOM-YELLOW HORNET 09/26/2007 16 - Unknown Comments: Yellow and white faced hornet VENOM-YELLOW JACKET PROTEIN 09/26/2007 WELLBUTRIN (BUPROPION HCL) 05/08/2019 2 - Rash Comments: Agitation ZOLOFT (SERTRALINE HCL) 10/30/2018 5 - Intolerance Comments: altered mood Date Reviewed: 10/10/2019 Reviewed by: Maribel Nuñez Ma - Fully Assessed Reason for Visit: Allergy Injection [1369] Primary Visit Diagnosis:Toxic effect of venom, accidental or unintentional, subsequent encounter [T63.91XD] Prescriptions as of 10/22/2019 Sig: CYCLOBENZAPRINE 10 MG TABLET Take 1 tablet by mouth three * FLUTICASONE PROPIONATE-SALMET* Inhale 2 Puffs as instructed * ALBUTEROL SULFATE 2.5 MG/3 ML* Use 3 mL via nebulizer every * DEXTROAMPHETAMINE-AMPHETAMINE* Take 20 mg by mouth once ngozi * FAMOTIDINE 20 MG TABLET Take 1 tablet by mouth twice * GABAPENTIN 100 MG CAPSULE Take 1 capsule by mouth three* CORN SHZNDD-KDKDLU-CTQC OXIDE* Apply 1 application to affect * CALCIUM CARBONATE 500 MG (1,2* Take 1 tablet by mouth twice * NAPROXEN 500 MG TABLET Take 1 tablet by mouth twice * B-COMPLEX WITH VITAMIN C TABL* Take 1 tablet by mouth once d * CHOLECALCIFEROL (VITAMIN D3) * Take 1 tablet by mouth once d * MAGNESIUM 250 MG TABLET Take 1 tablet by mouth once d* LACTOBACILLUS RHAMNOSUS GG-LA* Take 1 capsule by mouth daily * ALBUTEROL SULFATE HFA 90 MCG/* Inhale 2 Puffs as instructed * LORAZEPAM 0.5 MG TABLET Take by mouth at bedtime as n* TRIAMCINOLONE ACETONIDE 55 MC* Use 2 Sprays in each nostril * AZELASTINE 137 MCG (0.1 %) NA* Use 2 Sprays in each nostril * GUAIFENESIN ER 600 MG TABLET,* Take 2 tablets by mouth twice * CETIRIZINE 10 MG TABLET Take 1 tablet by mouth once d* KETOTIFEN 0.025 % (0.035 %) E* One drop to each eye 2 to 3 t * RIZATRIPTAN 10 MG TABLET Take 1 tablet by mouth as nee* AMITRIPTYLINE 50 MG TABLET Take 50 mg by mouth daily at * TOPIRAMATE 50 MG TABLET Take 50 mg by mouth twice mara* ZIPRASIDONE 40 MG CAPSULE Take 40 mg by mouth daily wit* VITAMIN B COMPLEX TABLET Take 1 tablet by mouth once d* FLUTICASONE FUROATE 200 MCG-V* Inhale 1 Inhalation as instru * EPINEPHRINE 0.3 MG/0.3 ML INJ* Inject 0.3 mL intramuscularly * Problem List As Of Date 10/22/2019 Noted Resolved ASTHMA UNSPECIFIED [J45.909] 11/02/2014 Allergic rhinitis due to fungal spores [J30.89] More... Obesity, Class III, BMI 40-49.9 (morbid obesity*11/21/2006 Obstructive sleep apnea [G47.33] 08/19/2007 Toxic effect of venom [T63.91XA] 09/23/2007 11/28/2018 Moderate persistent asthma [J45.40] 11/02/2014 Allergic rhinitis due to dust mite [J30.89] 01/24/2018 Allergic rhinitis due to cat hair [J30.81] 01/24/2018 Seasonal allergic rhinitis due to pollen [J30.1]01/24/2018 Right ureteral calculus [N20.1] 02/15/2018 More... Nonspecific paroxysmal spell [R40.4] 08/14/2018 09/24/2018 Psychogenic nonepileptic seizure [F44.5] 08/14/2018 Transient alteration of awareness [R40.4] 08/14/2018 018 Concern about neurological disease without diag*08/14/2018 1 11/24/2017 Psychosocial stressors [Z65.8] 08/14/2018 Episodic mood disorder (HCC) [F39] 08/14/2018 Convulsions (HCC) [R56.9] 09/23/2018 Other group home (current) drug therapy [Z79.899]08/22/2018 Severe manic bipolar I disorder with psychotic *09/24/2018 Toxic effect of venom [T63.91XA] 11/28/2018 Myalgia [M79.10] 01/29/2019 Chronic pain syndrome [G89.4] 01/29/2019 Concentration deficit [R41.840] 01/29/2019 Screening for breast cancer [Z12.39] 01/29/2019 Bipolar disorder, current episode mixed, modera*04/08/2019 Intractable migraine without status migrainosus*04/08/2019 Intertrigo [L30.4] 04/08/2019 Visit Notes: >> Marie Angel LPN SunOct 22, 2019 9:58 AM Status: Rebecca tom Pt identified by name and birthdate. Allergy injections given subcutaneously. October 22, 2019 9:58 AM Patient states they did not take antihistamine. Immunotherapy Order written on: 09/04/[address] Ramirez Seg[place] [phone] If patient has asthma, patient states symptoms controlled: Y es Patient did not report a recent illness. Patient on Beta chaim:No Patient has their Epi pen with them, Yes Vial A Content: MIXED VESPID Patient did not have a large late local reaction to previous injection. Size of reaction na Concentration: 300 mcg Dose: 0.8 ml SQ Arm: right upper arm (proximal) Reaction after 30 minutes: None Vial B Content: WASP Patient did not have a large late local reaction to previous injection. Size of reaction na Concentration: 100 mcg Dose: 0.8 ml SQ Arm: left upper arm (proximal) Reaction after 30 minutes: None Previously instructed about signs and symptoms of local and systemic reactions. Appointment line and nurses station number given as well as injection times at administering location. Marie Angel LPN IT Check Rl Abbott LPN Encounter Status:Closed by MARIE ANGEL LPN on 10/22/19 progress on 2019-09 PROGRESS HNO ID: [id number] Normal 10-10-2019 [facility] Author: Karishma (Jamison) Benny Hallman ([id number]) Service: ? Author Type: Physician Field Investigator Type: Progress Notes Filed: 10/10/2019 6:27 PM Note Text: Subjective HPI HPI Bhavesh Beaulieu is a 43 year old female who presents to day for CC of continued L ear pain/itching. Was seen here on 10/06 and txe d for OE w/ ofloxacin ear gtt and Amoxicillin. She can hear out of it fi ne. Has a f/u with her primary on 10/22 and was potentially considering referral to ENT if she's still having issues. BP 124/88 Pulse 92 Temp 36.3 ?C (97.4 ?F) (Right Tympani c) Resp 16 Wt 119 kg (262 lb 6.4 oz) BMI 47.99 kg/m? ALLERGIES Allergen Reactions - Beta Blockers [Beta* Contraindication-Medical Surgical Avoid use of beta blockers and KERRIE inhibitors since patient is on venom immunotherapy - Kerrie Inhibitors Contraindication-Medical Surgical Avoid use of beta blockers and KERRIE inhibitors since patient is on venom immunotherapy - Environmental Aller* Grasses, molds, dust mites, cats, cockroaches - Lexapro [Escitalopr* Intolerance altered mood - Prozac [Fluoxetine * Intolerance altered mood - Venom-Wasp - Venom-Yellow Hornet Unknown Yellow and white faced hornet - Venom-Yellow Jacket* - Wellbutrin [Bupropi* Rash Agitation - Zoloft [Sertraline * Intolerance altered mood ACTIVE PROBLEM LIST Allergic Rhinitis Due to Fungal Spores Obesity, Class Iii, Bmi 40-49.9 (Morbid Obesity) (Hcc) Obstructive Sleep Apnea Moderate Persistent Asthma Allergic Rhinitis Due to Dust Mite Allergic Rhinitis Due to Cat Hair Seasonal Allergic Rhinitis Due to Pollen Right Ureteral Calculus Psychogenic Nonepileptic Seizure Psychosocial Stressors Episodic Mood Disorder (Hcc) Convulsions (Hcc) Other [facility] (Current) Drug Therapy 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 (Hcc ) Toxic Effect of Venom Myalgia Chronic Pain Syndrome Concentration Deficit Screening for Breast Cancer Bipolar Disorder, Current Episode Mixed, Moderate (Hcc) Intractable Migraine Without Status Migrainosus Intertrigo Family History Problem Relation Age of Onset - Asthma Mother - Thyroid Mother - COPD Mother - other (depression) Mother - other (depression) Sister - Asthma Brother - Depression Brother - Diabetes Father - Hypertension Father - Diabetes Maternal Grandmother - Thyroid Maternal Grandmother - Cancer Maternal Grandfather unknown - Kidney Disease Paternal Grandmother - Cancer Paternal Grandfather - Asthma Daughter - Depression Daughter - Depression Daughter - other (ADD) Daughter Social History Tobacco Use - Smoking status: Never Smoker - Smokeless tobacco: Never Used Substance Use Topics - Alcohol use: No - Drug use: No Review of Systems Constitutional: Negative for chills, fever and malaise/fatig ue. HENT: Positive for ear pain and tinnitus (Intermittent L ear ). Negative for congestion, ear discharge, hearing loss, sinus pain and sore throat. Respiratory: Negative for cough, sputum production, shortnes s of breath and wheezing. Cardiovascular: Negative for chest pain. Neurological: Negative for headaches. Objective Physical Exam Constitutional: She is oriented to person, place, and time a nd well-developed, well-nourished, and in no distress. Vital si gns are normal. HENT: Head: Normocephalic. Right Ear: Tympanic membrane, external ear and ear canal nor mal. No drainage. Tympanic membrane is not perforated, not erythemat ous, not retracted and not bulging. No middle ear effusion. Left Ear: Tympanic membrane and ear canal normal. There is t enderness (On posterior wall with insertion of speculum). No drainage or s welling. Tympanic membrane is not perforated, not erythematous, not r etracted and not bulging. No middle ear effusion. Nose: No rhinorrhea. Right sinus exhibits no maxillary sinus tenderness and no frontal sinus tenderness. Left sinus exhibits no maxi llary sinus tenderness and no frontal sinus tenderness. Mouth/Throat: Uvula is midline and mucous membranes are norm al. No oropharyngeal exudate, posterior oropharyngeal edema, risk developer ior oropharyngeal erythema or tonsillar abscesses. Tenderness/muscle spasm noted of L TMJ joint while checking ROM. Myofascial release technique performed with some subjective relief in symptoms. Mild tenderness also noted in postauricular region overlying mastoid- feels to be c/w muscle spasm in that region (no con cerning evidence for mastoiditis) Eyes: Conjunctivae and lids are normal. Cardiovascular: Normal rate, regular rhythm, S1 normal and S 2 normal. Exam reveals no friction rub. Pulmonary/Chest: Effort normal and breath sounds normal. She has no wheezes. She has no rhonchi. She has no rales. Lymphadenopathy: Head (right side): No submental, no submandibular, no tonsil lar, no preauricular, no posterior auricular and no occipital adenop athy present. Head (left side): No submental, no submandibular, no tonsill ar, no preauricular, no posterior auricular and no occipital adenop athy present. Right cervical: No superficial cervical and no posterior cer vical adenopathy present. Left cervical: No superficial cervical and no posterior cerv ical adenopathy present. Neurological: She is oriented to person, place, and time. ASSESSMENT/PLAN: 1. Acute otalgia, left - ICD9: 388.70, ICD10: H92.02 (primar y diagnosis) Possibly OE given relief with recent course of gtt and tende rness of canal on exam. Will do a course of ciprodex for a few days, to see if the dexamethasone component can bring her some relief. Also susp ect otalgia to be partially referred pain secondary to TMJ arthalgia/possib le clenching of jaw. Myofascial release technique performed with subjecti ve relief in sx. Stretching exercises advised and/or handouts given, appl ication of heat/ice advised, pain control addressed. Keep f/u with PCP in october (or even possibly dentist) if problem persists, or if at any point the condition worsens. - CIPRODEX 0.3 %-0.1 % EAR DROPS,SUSPENSION 2. Arthralgia of left temporomandibular joint - ICD9: 524.62 , ICD10: M26.622 See above - CYCLOBENZAPRINE 10 MG TABLET Reviewed red flags with patient and when to seek care sooner . The patient indicates understanding of these issues and agre es with the plan. Karishma Irby PA-C cnov on 2019-10-10 [facility] Office Visit ([facility]) Normal 10-10-[address] [facility] BHAVESH BEAULIEU ([id number]) 1975 [facility] Date Time Provider Department ([id number]) 10/10/19 5:45 PM KARISHMA IRBY (JAMISON) [facility] During your visit today, we recorded the following informati on about you: Temperature Pulse Respiration Blood pressure 97.4 degrees 92/minute 16/minute 124/88 Weight 119 kg Karishma Irby PA-C 10/10/2019 6:27 PM Signed Subjective HPI HPI Bhavesh Trammell Brittnee is a 43 year old female who presents to day for CC of continued L ear pain/itching. Was seen here on 10/06 and txe d for OE w/ ofloxacin ear gtt and Amoxicillin. She can hear out of it fi ne. Has a f/u with her primary on 10/22 and was potentially considering r eferral to ENT if she's still having issues. BP 124/88 Pulse 92 Temp 36.3 ?C (97.4 ?F) (Right Tympani c) Resp 16 Wt 119 kg (262 lb 6.4 oz) BMI 47.99 kg/m? ALLERGIES Allergen Reactions - Beta Blockers [Beta* Contraindication-Medical Surgical Avoid use of beta blockers and KERRIE inhibitors since patient is on venom immunotherapy - Kerrie Inhibitors Contraindication-Medical Surgical Avoid use of beta blockers and KERRIE inhibitors since patient is on venom immunotherapy - Environmental Aller* Grasses, molds, dust mites, cats, cockroaches - Lexapro [Escitalopr* Intolerance altered mood - Prozac [Fluoxetine * Intolerance altered mood - Venom-Wasp - Venom-Yellow Hornet Unknown Yellow and white faced hornet - Venom-Yellow Jacket* - Wellbutrin [Bupropi* Rash Agitation - Zoloft [Sertraline * Intolerance altered mood ACTIVE PROBLEM LIST Allergic Rhinitis Due to Fungal Spores Obesity, Class Iii, Bmi 40-49.9 (Morbid Obesity) (Hcc) Obstructive Sleep Apnea Moderate Persistent Asthma Allergic Rhinitis Due to Dust Mite Allergic Rhinitis Due to Cat Hair Seasonal Allergic Rhinitis Due to Pollen Right Ureteral Calculus Psychogenic Nonepileptic Seizure Psychosocial Stressors Episodic Mood Disorder (Hcc) Convulsions (Hcc) Other [employer] (Current) Drug Therapy 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 (Hcc ) Toxic Effect of Venom Myalgia Chronic Pain Syndrome Concentration Deficit Screening for Breast Cancer Bipolar Disorder, Current Episode Mixed, Moderate (Hcc) Intractable Migraine Without Status Migrainosus Intertrigo Family History Problem Relation Age of Onset - Asthma Mother - Thyroid Mother - COPD Mother - other (depression) Mother - other (depression) Sister - Asthma Brother - Depression Brother - Diabetes Father - Hypertension Father - Diabetes Maternal Grandmother - Thyroid Maternal Grandmother - Cancer Maternal Grandfather unknown - Kidney Disease Paternal Grandmother - Cancer Paternal Grandfather - Asthma Daughter - Depression Daughter - Depression Daughter - other (ADD) Daughter Social History Tobacco Use - Smoking status: Never Smoker - Smokeless tobacco: Never Used Substance Use Topics - Alcohol use: No - Drug use: No Review of Systems Constitutional: Negative for chills, fever and malaise/fatig ue. HENT: Positive for ear pain and tinnitus (Intermittent L ear ). Negative for congestion, ear discharge, hearing loss, sinus pain and sore throat. Respiratory: Negative for cough, sputum production, shortn ess of breath and wheezing. Cardiovascular: Negative for chest pain. Neurological: Negative for headaches. Objective Physical Exam Constitutional: She is oriented to perso n, place, and time and well-developed, well-nourished, and in no distress. Vital signs are normal. HENT: Head: Normocephalic. Right Ear: Tympanic membrane, external ear and e ar canal normal. No drainage. Tympanic membrane is not perforated, not erythematous, not retracted and not bulging. No middle ear effusion. Left Ear: Tympanic membrane and ear canal normal. There is t enderness (On posterior wall with insertion of speculum). No d rainage or swelling. Tympanic membrane is not perforated, not erythematous, not retr acted and not bulging. No middle ear effusion. Nose: No rhinorrhea. Right sinus exhibit s no maxillary sinus tenderness and no frontal sinus tenderness. Le ft sinus exhibits no maxillary sinus tenderness and no frontal sinus tenderness. Mouth/Throat: Uvula is midline and mucous membranes are norm al. No oropharyngeal exudate, posterior oropharyngeal e wendy, posterior oropharyngeal erythema or tonsillar abscesses. Tenderness/muscle spasm noted of L TMJ joint while checkin g ROM. Myofascial release technique performed with some subjective relief in s ymptoms. Mild tenderness also noted in postauricular region overlyin g mastoid- feels to be c/w muscle spasm in that region (no concerning evidence for mastoiditis) Eyes: Conjunctivae and lids are normal. Cardiovascular: Normal rate, regular rhythm, S1 normal and S 2 normal. Exam reveals no friction rub. Pulmonary/Chest: Effort normal and breath sounds janet l. She has no wheezes. She has no rhonchi. She has no rales. Lymphadenopathy: Head (right side): No submental, no submandibular, no tonsil lar, no preauricular, no posterior auricular and no occipital adenop athy present. Head (left side): No submental, no submandibular, no tonsill ar, no preauricular, no posterior auricular and no occipital adenop athy present. Right cervical: No superficial cervical and no posterior cer vical adenopathy present. Left cervical: No superficial cervical and no posterior cerv ical adenopathy present. Neurological: She is oriented to person, place, and time. ASSESSMENT/PLAN: 1. Acute otalgia, left - ICD9: 388.70, ICD10: H92.02 (primar y diagnosis) Possibly OE given relief with recent course of g tt and tenderness of canal on exam. Will do a course of ciprodex for a few days, to see if the dexamethasone component can bring her some relief. Also suspect otalgia to be partially referred pain secondary to TMJ arthalgia /possible clenching of jaw. Myofascial release technique performed with subject david relief in sx. Stretching exercises advised and/or handouts given, application of heat/ice advised, pain control addressed. Keep f/u with PCP in october (or even possibly dentist) if problem persists, or if at any point the condition worsens. - CIPRODEX 0.3 %-0.1 % EAR DROPS,SUSPENSION 2. Arthralgia of left temporomandibular joint - ICD9: 524.62, ICD10: M26.622 See above - CYCLOBENZAPRINE 10 MG TABLET Reviewed red flags with patient and when to seek care sooner . The patient indicates understanding of these iss ues and agrees with the plan. BENI Barrett PA-C 10/10/2019 6:14 PM Signed Patient Information Department of Otolaryngology ? Head AND Neck Surgery [facility] * [address] [facility]. * [place], [place] [address] * Pain AND the TMJ What is the TMJ? You may not have ever heard of it, but y ou use it hundreds of times every day. It is the Temporo-Mandibular Joint, the joint where the ma ndible (the lower jaw) joins the temporal bone of the skull, immed iately in front of the ear on each side of the head. Each time you chew you move it. But you also move it every time you talk and every time you s wallow (every three minutes or so). It is, therefore, one of the most frequently used o f all the joints of the body. You can locate that joint by putting your finger on the triangular structure in front of your ear. Then move your finger just slightly forward and press firmly while you open your jaw all the way open and shut. The motion you feel is in the TMJ. You can also feel the joint mot ion if you put your little finger down into your ear canal with the fingernail backwards. The n press forward as you open and close your jaw again. These maneuvers can cause considerable discomfort to a patient who is having TMJ trouble, and physicians do this to patients for diagnosi s. How Does the TMJ Work? When you bite down forcefully, you not only put force on t he object between your teeth, but also on the joint. In terms of physics , the jaw is the lever and the TMJ is the fulcrum. Actually, more force is applied (per square inch) to the joint surface than to whatever is between your teeth. To accommodate for such forces, and to prevent too much wear and te ar from occurring in one spot within the joint space, the joint was designed to be a sliding joint, rather than the usual icer-upe-hvnaye type joint, (such as the hip and shoulder, for example). Therefore, the forces of lynsey wing can be distributed over a wider surface in the joint space, which dissipates the wear and tear and allows healing to rapidly occur in between chewing times. Joints are lined with cartilage (gristle), which is a rubb barrett, slippery material that allows for smooth motion. How Can Things Go Wrong With the TMJ? If you habitually clench or grit or grin d your teeth, you increase the wear on the cartilage lining of the joint. Many persons grind their teeth and they do not know it unless an observant roommate tells them so. If you habitually chew gum much of the day, again, you increase the wear and tear on the joint and you give it little opportunity to recover between meals, a s it ought to have. If you chew habitually only on one side of your mouth, you co ncentrate all the pressure on one side rather than equally on both sides, and too much wear occurs on the joint of that side. This often occurs if you have a tooth problem on one side, or recent dental work, that causes you to favor one side over the other. Teeth that do not fit together properly are ofte n at fault. This is called an improper bite. imagine how much extra pressure the TMJ m ust endure during each chew when teeth on one side come together before thos e on the opposite side do. In each of the above circumstances, a faulty lynsey wing pattern takes place that creates one focus of wear in the cartilage lining of the joint space. When that spot wears down to the nerve endings, pain occur s. A form of arthritis occurs (traumatic type) which is called TMJ dys function. (Dysfunction means faulty or painful function.) How Does TMJ Dysfunction Feel? The pain may be sharp and searing, occur ring each time you swallow, yawn, talk or chew; or it may be dull, constant and boring. The usual focus of pain is over the joint, immediately in front of the ear, but pain ca n also radiate elsewhere. The pain often causes spasm in the adjacent muscl es which are attached to the bones of the skull, face, and jaws. Therefore, pain can be felt at the side of the head (the moravian), th e cheek, the lower jaw, and the teeth. Some people have attributed migraine, sinus trou ble and backaches to the TMJ, but that would be difficult to explain with our present-day knowledge of anatomy and physiology. A very common focus of pain is in the ear. Many patients com e to the fisher eel spear quite convinced t heir pain is from an ear infection. When an earache is not associated with a hea ring loss, and the eardrum looks normal, the doctor will consider the possibility that the pain comes from TMJ d ysfunction. There are a few other symptoms besides p ain that TMJ dysfunction can cause. In some patients the TMJ make popping, clicking or grinding sounds when the jaws are opened widely. Cr they can lock wide open (disloca gonzález), or, at the other extreme, they can prevent the jaws from fully opening up. So me people get ringing in their ears from TMJ trouble, which is an exagge ration of the ear ringing that most people can normally produce by clenching their teeth together hard. What Can Be Done For TMJ Dysfunction? If yours is a mild case and one that has been detected fairly early, it will probably respond to these simple self-help remedies: 1. Chew evenly, left vs. right. 2. Stop clenching, gritting or grinding teeth. 3. Stop chewing gum. 4. Avoid hard chewy foods. 5. Apply heating pad for a half hour at least twice daily. 6. Take aspirin (or buffered aspirin) or other a nti-inflammatory medicines in a dose your doctor recommends. Items 1-4 are intended to reduce the amount of w ear and injury that the joint suffers. Items 5 and 6 are to encourage the healing processe s. Aspirin and other anti-inflammatory medicines are ve ry effective for reducing inflammation in joints, which is why mary grace ents use them for arthritis They are very effective for TMJ dysfunction too. Checking for dental problems and readjusting your bite can help. Stubborn cases of TMJ dysfunction may require further consultation with a n oral surgeon or dentist. Your dentist can fit you with a splint to open your bite and decrease bruxism (grinding your teeth while sleeping.) 1994. [place] [employer] [facility] ry, Inc. This leaflet is published as a public service. The ma terial may be freely used for noncommercial purposes so long as attrib ution is given to the [place] [employer] [place] [address] Referring Provider: SELF [200] Allergies As of Date: 10/10/2019 Noted Allergy Reaction BETA BLOCKERS (BETA-BLOCKERS (BET*2013 15 - Contraindication-Medical Sharma* Comments: Avoid use of beta blockers and KERRIE inhibitors sinc e patient is on venom immunotherapy KERRIE INHIBITORS 11/02/2014 15 - Contraindication-Medical Sharma* Comments: Avoid use of beta blockers and KERRIE inhibitors sinc e patient is on venom immunotherapy Environmental Allergies [Other] 12/25/2006 Comments: Grasses, molds, dust mites, cats, cockroaches LEXAPRO (ESCITALOPRAM OXALATE) 10/30/2018 5 - Intolerance Comments: altered mood PROZAC (FLUOXETINE HCL) 10/30/2018 5 - Intolerance Comments: altered mood VENOM-WASP 09/26/2007 VENOM-YELLOW HORNET 09/26/2007 16 - Unknown Comments: Yellow and white faced hornet VENOM-YELLOW JACKET PROTEIN 09/26/2007 WELLBUTRIN (BUPROPION HCL) 05/08/2019 2 - Rash Comments: Agitation ZOLOFT (SERTRALINE HCL) 10/30/2018 5 - Intolerance Comments: altered mood Date Reviewed: 10/10/2019 Reviewed by: Maribel Nuñez Ma - Fully Assessed Reason for Visit: Recheck [92] Cmt: UC visit 10/06/19-acute otitis externa of LEFT easr; not better Reason For Visit History Recorded Primary Visit Diagnosis:Acute otalgia, left [H92.02] Other Visit Diagnosis:Arthralgia of left temporomandibular j oint [M26.622] Order(s):ciprofloxacin-dexamethasone (CIPRODEX) otic suspensionUse 4 Drops in the left ear twice daily for 7 days.Disp: 3 mLRfl: 1 cyclobenzaprine (FLEXERIL) 10 mg tabletTake 1 tablet by mout h three times daily as needed for Muscle Spasm.Disp: 30 tabletRfl: 0 Prescriptions as of 10/10/2019 Sig: AMOXICILLIN 875 MG TABLET Take 1 tablet by mouth twice * FLUTICASONE PROPIONATE-SALMET* Inhale 2 Puffs as instructed * ALBUTEROL SULFATE 2.5 MG/3 ML* Use 3 mL via nebulizer every * DEXTROAMPHETAMINE-AMPHETAMINE* Take 20 mg by mouth once ngozi * FAMOTIDINE 20 MG TABLET Take 1 tablet by mouth twice * GABAPENTIN 100 MG CAPSULE Take 1 capsule by mouth three* CORN YHYXOC-KSJIWB-TWTD OXIDE* Apply 1 application to affect * CALCIUM CARBONATE 500 MG (1,2* Take 1 tablet by mouth twice * NAPROXEN 500 MG TABLET Take 1 tablet by mouth twice * B-COMPLEX WITH VITAMIN C TABL* Take 1 tablet by mouth once d * CHOLECALCIFEROL (VITAMIN D3) * Take 1 tablet by mouth once d * MAGNESIUM 250 MG TABLET Take 1 tablet by mouth once d* LACTOBACILLUS RHAMNOSUS GG-LA* Take 1 capsule by mouth daily * ALBUTEROL SULFATE HFA 90 MCG/* Inhale 2 Puffs as instructed * LORAZEPAM 0.5 MG TABLET Take by mouth at bedtime as n* TRIAMCINOLONE ACETONIDE 55 MC* Use 2 Sprays in each nostril * AZELASTINE 137 MCG (0.1 %) NA* Use 2 Sprays in each nostril * GUAIFENESIN ER 600 MG TABLET,* Take 2 tablets by mouth twice * CETIRIZINE 10 MG TABLET Take 1 tablet by mouth once d* KETOTIFEN 0.025 % (0.035 %) E* One drop to each eye 2 to 3 t * RIZATRIPTAN 10 MG TABLET Take 1 tablet by mouth as nee* AMITRIPTYLINE 50 MG TABLET Take 50 mg by mouth daily at * TOPIRAMATE 50 MG TABLET Take 50 mg by mouth twice mara* ZIPRASIDONE 40 MG CAPSULE Take 40 mg by mouth daily wit* VITAMIN B COMPLEX TABLET Take 1 tablet by mouth once d* FLUTICASONE FUROATE 200 MCG-V* Inhale 1 Inhalation as instru * EPINEPHRINE 0.3 MG/0.3 ML INJ* Inject 0.3 mL intramuscularly * CIPRODEX 0.3 %-0.1 % EAR DROP* Use 4 Drops in the left ear t * CYCLOBENZAPRINE 10 MG TABLET Take 1 tablet by mouth three * Problem List As Of Date 10/10/2019 Noted Resolved ASTHMA UNSPECIFIED [J45.909] 11/02/2014 Allergic rhinitis due to fungal spores [J30.89] More... Obesity, Class III, BMI 40-49.9 (morbid obesity*11/21/2006 Obstructive sleep apnea [G47.33] 08/19/2007 Toxic effect of venom [T63.91XA] 09/23/2007 11/28/2018 Moderate persistent asthma [J45.40] 11/02/2014 Allergic rhinitis due to dust mite [J30.89] 01/24/2018 Allergic rhinitis due to cat hair [J30.81] 01/24/2018 Seasonal allergic rhinitis due to pollen [J30.1]01/24/2018 Right ureteral calculus [N20.1] 02/15/2018 More... Nonspecific paroxysmal spell [R40.4] 08/14/2018 09/24/2018 Psychogenic nonepileptic seizure [F44.5] 08/14/2018 Transient alteration of awareness [R40.4] 08/14/2018 018 Concern about neurological disease without diag*08/14/2018 1 11/24/2017 Psychosocial stressors [Z65.8] 08/14/2018 Episodic mood disorder (HCC) [F39] 08/14/2018 Convulsions (HCC) [R56.9] 09/23/2018 Other group home (current) drug therapy [Z79.899]08/22/2018 Severe manic bipolar I disorder with psychotic *09/24/2018 Toxic effect of venom [T63.91XA] 11/28/2018 Myalgia [M79.10] 01/29/2019 Chronic pain syndrome [G89.4] 01/29/2019 Concentration deficit [R41.840] 01/29/2019 Screening for breast cancer [Z12.39] 01/29/2019 Bipolar disorder, current episode mixed, modera*04/08/2019 Intractable migraine without status migrainosus*04/08/2019 Intertrigo [L30.4] 04/08/2019 Other instructions from your clinician: Patient Information Department of Otolaryngology ? Head AND Neck Surgery [facility] * [address] [facility]. * [place] [address] * Pain AND the TMJ What is the TMJ? You may not have ever heard of it, but you use it hundreds o f times every day. It is the Temporo-Mandibular Joint, the joint where the mandible (the lower jaw) joins the temporal bone of the skull, immediately in front of the ear on each side of the head. Each time you chew you mov e it. But you also move it every time you talk and every time you swallow (every three minutes or so). It is, therefore, one of the most frequently used of all the joints of the body. You can locate that joint by putting your finger on the tria ngular structure in front of your ear. Then move your finger just s lightly forward and press firmly while you open your jaw all the way open and shut. The motion you feel is in the TMJ. You can also feel t he joint motion if you put your little finger down into your ear deep l with the fingernail backwards. Then press forward as you open and alla se your jaw again. These maneuvers can cause considerable discomfort to a patie nt who is having TMJ trouble, and physicians do this to patients for d iagnosis. How Does the TMJ Work? When you bite down forcefully, you not only put force on the object between your teeth, but also on the joint. In terms of physi cs, the jaw is the lever and the TMJ is the fulcrum. Actually, more force i s applied (per square inch) to the joint surface than to whatever is betwee n your teeth. To accommodate for such forces, and to prevent too much wear and tear from occurring in one spot within the joint space, the joint was designed to be a sliding joint, rather than the usual hyaj-lpe-ikrpyu type joint, (such as the hip and shoulder, for example). Therefore, the forces of chewing can be distributed over a w ider surface in the joint space, which dissipates the wear and tear and a llows healing to rapidly occur in between chewing times. Joints are lined with cartilage (gristle), which is a rubb barrett, slippery material that allows for smooth motion. How Can Things Go Wrong With the TMJ? If you habitually clench or grit or grind your teeth, you in crease the wear on the cartilage lining of the joint. Many persons grin d their teeth and they do not know it unless an observant roommate tells t hem so. If you habitually chew gum much of the day, again, you increase the wear and tear on the joint and you give it little opportunity to recover b etween meals, as it ought to have. If you chew habitually only on one side of your mouth, you concentrate all the pressure on one side rather t nichols equally on both sides, and too much wear occurs on the joint of that si de. This often occurs if you have a tooth problem on one side, or recent de ntal work, that causes you to favor one side over the other. Teeth that do not fit together properly are often at fault. This is called an improper bite. imagine how much extra pressure the TMJ must endure during each chew when teeth on one side come together before those on the opposite side do. In each of the above circumstances, a faulty chewing pattern takes place that creates one focus of wear in the cartilage lining of th e joint space. When that spot wears down to the nerve endings, pain occurs. A form of arthritis occurs (traumatic type) which is called TMJ dysfun ction. (Dysfunction means faulty or painful function.) How Does TMJ Dysfunction Feel? The pain may be sharp and searing, occurring each time you s wallow, yawn, talk or chew; or it may be dull, constant and boring. The [facility] focus of pain is over the joint, immediately in front of the ear, but pain can also radiate elsewhere. The pain often causes spasm in the adjace nt muscles which are attached to the bones of the skull, face, and jaws . Therefore, pain can be felt at the side of the head (the moravian), the c heek, the lower jaw, and the teeth. Some people have attributed migrai ne, sinus trouble and backaches to the TMJ, but that would be difficul t to explain with our present-day knowledge of anatomy and physiology. A very common focus of pain is in the ear. Many patients com e to the fisher eel spear quite convinced their pain is from an ear infecti on. When an earache is not associated with a hearing loss, and the eardr um looks normal, the doctor will consider the possibility that the pa in comes from TMJ dysfunction. There are a few other symptoms besides pain that TMJ dysfunc tion can cause. In some patients the TMJ make popping, clicking or gr inding sounds when the jaws are opened widely. Cr they can lock wide open (dislocated), or, at the other extreme, they can prevent the jaws from ful ly opening up. Some people get ringing in their ears from TMJ trouble, whic h is an exaggeration of the ear ringing that most people can normall y produce by clenching their teeth together hard. What Can Be Done For TMJ Dysfunction? If yours is a mild case and one that has been detected fairl y early, it will probably respond to these simple self-help remedies: 1. Chew evenly, left vs. right. 2. Stop clenching, gritting or grinding teeth. 3. Stop chewing gum. 4. Avoid hard chewy foods. 5. Apply heating pad for a half hour at least twice daily. 6. Take aspirin (or buffered aspirin) or other anti-inflamma tory medicines in a dose your doctor recommends. Items 1-4 are intended to reduce the amount of wear and inju ry that the joint suffers. Items 5 and 6 are to encourage the healing pr ocesses. Aspirin and other anti-inflammatory medicines are very effec tive for reducing inflammation in joints, which is why patients use t hem for arthritis They are very effective for TMJ dysfunction too. Checking for dental problems and readjusting your bite can h elp. Stubborn cases of TMJ dysfunction may require further consultation wi th an oral surgeon or dentist. Your dentist can fit you with a splint t o open your bite and decrease bruxism (grinding your teeth while sleepin g.) 1994. [employer] [place] [employer], Inc. This leaflet is published as a public service. The material may b e freely used for noncommercial purposes so long as attribution is given t o the [place] [employer] [place] [address] Prescriptions ordered this encounter Disp Refills Start End CIPRODEX 0.3 %-0.1 % EAR DROPS,SUSPE* 3 mL 1 10/10/201909/20 Route: LEFT EAR Sig: Use 4 Drops in the left ear twice daily for 7 days. CYCLOBENZAPRINE 10 MG TABLET 30 t* 0 10/10/2019 Route: ORAL Sig: Take 1 tablet by mouth three times daily as needed for Muscle Spasm. Medications Discontinued During This Encounter ofloxacin (FLOXIN) 0.3 % otic soluti* 1 Bacilio* 0 10/06/2019 Route: LEFT EAR Sig: Use 10 Drops in the left ear once daily for 7 days. Patient not taking: Reported on 10/10/2019 Disc: Reason for discontinue is not on file. Encounter Status:Closed by KARISHMA IRBY on 10/10/19 progress on 2019-09 PROGRESS HNO ID: [id number] Normal 10-06-2019 [facility] Author: Beverly Morales) [facility] ([id number]) Service: ? Author Type: Nurse Practitioner Type: Progress Notes Filed: 10/06/2019 2:42 PM Note Text: Subjective HPI HPI Bhavesh Beaulieu is a 43 year old female who presents to [facility] for CC of left ear pain, drainage. This started 3 days ago. Has tried cortasporin atb drops. Risk factors hx of OM and OE. .Patient presents with: Ear Pain: left ear pain x 3 days PAST MEDICAL HISTORY Diagnosis Date - Allergic rhinitis, cause unspecified Allergy, airborne subst - Anxiety and depression - Bee allergy status - Depression - Environmental allergies - GERD (gastroesophageal reflux disease) - Hypercholesteremia 11/2014 - Impaired fasting glucose - Migraines - Morbid obesity (HCC) - Obstructive sleep apnea DX 2006, not on CPAP since 06/2018 - Unspecified asthma(493.90) weather, allergy and exercise triggers - Vitamin D deficiency PAST SURGICAL HISTORY Procedure Laterality Date - DELIVERY ONLY 2001 , low cervical - LIGATE FALLOPIAN TUBE 2001 Tubal ligation - LITHOTRIPSY [facility] Right 02/18/2018 - STEREOTACTIC LOCALIZATION BREAST BIOPSY Right 05/26/2019 ALLERGIES Beta Blockers [Beta-Blockers (Beta-Adrenergic Bloc aj Agts)]; Kerrie Inhibitors; Environmental Allergies [Other]; Lexapro [Es citalopram Oxalate]; Prozac [Fluoxetine Hcl]; Venom-Wasp; Venom-Yellow Hornet; Venom-Yellow Jacket Protein; Wellbutrin [Bupropion Hcl]; Zol oft [Sertraline Hcl] -This section reviewed with patient, no changes MEDICATIONS fluticasone-salmeterol HFA (ADVAIR HFA) 115-21 mcg/actuation inhaler Inhale 2 Puffs as instructed twice daily. Use with spacer. R inse mouth out after use. albuterol (PROVENTIL) 2.5 mg /3 mL (0.083 %) nebulizer solut ion Use 3 mL via nebulizer every 4 hours as needed for Wheezing/Shortness of Breath. 1 vial contains 3 ml. amphetamine-dextroamphetamine XR (ADDERALL XR) 20 mg 24 hr c apsule Take 20 mg by mouth once daily. famotidine (PEPCID) 20 mg tablet Take 1 tablet by mouth twic e daily. gabapentin (NEURONTIN) 100 mg capsule Take 1 capsule by mout h three times daily for 98 days. [place] Zrxnga-Vhpjdm-Aduj Oxide (GOLD SOLANO MEDICATED BABY) 79- 4-15 % powd Apply 1 application to affected area twice daily as needed ( intertrigo). pgddbsz-mpbdwoahf-czluqcy D3 (CALCIUM 500+D) 500 mg(1,250mg) -200 unit per tablet Take 1 tablet by mouth twice daily with meals. naproxen (NAPROSYN) 500 mg tablet Take 1 tablet by mouth twi ce daily as needed. B-complex with vitamin C (ALLBEE WITH C) tablet Take 1 table t by mouth once daily. cholecalciferol (VITAMIN D3) 2,000 unit tablet Take 1 tablet by mouth once daily. Magnesium 250 mg tab Take 1 tablet by mouth once daily. L. rhamnosus-L. reuteri (REPHRESH PRO-B) 2.5 billion cell ca p Take 1 capsule by mouth daily at bedtime. albuterol HFA (VENTOLIN HFA) 90 mcg/actuation inhaler Inhale 2 Puffs as instructed every 4 hours as needed. LORazepam (ATIVAN) 0.5 mg tab Take by mouth at bedtime as ne eded. triamcinolone acetonide (NASACORT AQ) 55 mcg nasal inhaler U se 2 Sprays in each nostril every morning. azelastine (ASTELIN,ASTEPRO) 0.1% nasal spray Use 2 Sprays i n each nostril daily at bedtime. guaiFENesin (MUCINEX) 600 mg 12 hr tablet Take 2 tablets by mouth twice daily as needed. cetirizine (ZYRTEC) 10 mg tablet Take 1 tablet by mouth once daily as needed. ketotifen fumarate (ZADITOR) 0.025 % (0.035 %) ophthalmic so lution One drop to each eye 2 to 3 times a day as needed. rizatriptan (MAXALT) 10 mg tablet Take 1 tablet by mouth as needed for Migraine Headache (see administration instructions). May rep eat in 2 hours if needed amitriptyline (ELAVIL) 50 mg tablet Take 50 mg by mouth ngozi y at bedtime. topiramate (TOPAMAX) 50 mg tablet Take 50 mg by mouth twice daily. ziprasidone (GEODON) 40 mg capsule Take 40 mg by mouth daily with dinner. vitamin b complex (B COMPLETE) tab Take 1 tablet by mouth on ce daily. fluticasone-vilanterol (BREO ELLIPTA) 200-25 mcg/dose inhale r Inhale 1 Inhalation as instructed once daily. Rinse mouth out after u se. EPINEPHrine (EPIPEN) 0.3 mg/0.3 mL auto-injector Inject 0.3 mL intramuscularly as needed (for allergic reaction.Seek emerge nt medical care immediately after use.Disp:one 2-pack w/education trainer). FAMILY HISTORY Problem Relation Age of Onset - Asthma Mother - Thyroid Mother - COPD Mother - other (depression) Mother - other (depression) Sister - Asthma Brother - Depression Brother - Diabetes Father - Hypertension Father - Diabetes Maternal Grandmother - Thyroid Maternal Grandmother - Cancer Maternal Grandfather unknown - Kidney Disease Paternal Grandmother - Cancer Paternal Grandfather - Asthma Daughter - Depression Daughter - Depression Daughter - other (ADD) Daughter Social History Tobacco Use - Smoking status: Never Smoker - Smokeless tobacco: Never Used Substance Use Topics - Alcohol use: No - Drug use: No Review of Systems Constitutional: Negative for fever. HENT: Positive for congestion, ear discharge and ear pain. N egative for nosebleeds and sore throat. Respiratory: Negative for cough, shortness of breath and whe ezing. Musculoskeletal: Negative for neck pain. Skin: Negative for itching and rash. Objective Blood pressure 112/78, pulse 87, temperature 36.9 ?C (98.5 ? F), temperature source Tympanic, resp. rate 18, weight 119 kg (2 62 lb 6.4 oz), SpO2 99 %. Physical Exam Constitutional: She is oriented to person, place, and time a nd well-developed, well-nourished, and in no distress. Non-toxi c appearance. She does not have a sickly appearance. No distress. HENT: Head: Normocephalic and atraumatic. Right Ear: Hearing, tympanic membrane, external ear and ear canal normal. Left Ear: Hearing and ear canal normal. There is drainage, s welling and tenderness. Tympanic membrane is perforated. Nose: Nose normal. Mouth/Throat: Uvula is midline, oropharynx is clear and mois t and mucous membranes are normal. Eyes: Pupils are equal, round, and reactive to light. Conjun ctivae and lids are normal. Right eye exhibits no discharge. Left eye e xhibits no discharge. No scleral icterus. Neck: Trachea normal and normal range of motion. Neck supple . Pulmonary/Chest: Effort normal. Lymphadenopathy: She has no cervical adenopathy. Neurological: She is alert and oriented to person, place, an d time. Skin: No rash noted. She is not diaphoretic. ASSESSMENT/PLAN: 1. Acute otitis externa of left ear, unspecified type - ICD9 : 380.10, ICD10: H60.502 (primary diagnosis) -education material provided -use medication as prescribed -f/u if no better in 3-5 days -discussed proper ear hygiene -discussed prevention 2. Perforated tympanic membrane, left - ICD9: 384.20, ICD10: H72.92 -use medication as prescribed -follow up if symptoms persist, worsen, change Will schedule recheck Worsening s/s see ENT. Prescription instructions reviewed with patient as applicabl e. Patient advised if symptoms do not improve or if symptoms worsen mukesh ner, to contact the office for further evaluation by their primary c are physician. Potential red flag symptoms discussed with the patient. Suze valdez appropriate action plan to take if red flag symptoms occur. Patient agreeable to treatment plan. Beverly Villegas APRN.CNP cnov on 2019-10-06 CNOV Office Visit ([facility]) Normal 10-06-[address] [facility] BHAVESH BEAULIEU ([id number]) 1975 [address] Date Time Provider Department ([id number]) 10/06/19 2:30 PM BEVERLY VILLEGAS (EVIDENCE SPECIALIST) [facility] During your visit today, we recorded the following informati on about you: Temperature Pulse Respiration Blood pressure 98.5 degrees 87/minute 18/minute 112/78 Weight 119 kg Beverly Villegas APRN.EVIDENCE SPECIALIST 10/06/2019 2:42 PM Signed Subjective HPI HPI Bhavesh Trammell Brittnee is a 43 year old fe male who presents today for CC of left ear pain, drainage. This started 3 days ago. Has tried cortasporin atb drops. Risk factors hx of OM and OE. .Patient presents with: Ear Pain: left ear pain x 3 days PAST MEDICAL HISTORY Diagnosis Date - Allergic rhinitis, cause unspecified Allergy, airborne subst - Anxiety and depression - Bee allergy status - Depression - Environmental allergies - GERD (gastroesophageal reflux disease) - Hypercholesteremia 11/2014 - Impaired fasting glucose - Migraines - Morbid obesity (HCC) - Obstructive sleep apnea DX 2006, not on CPAP since 06/2018 - Unspecified asthma(493.90) weather, allergy and exercise triggers - Vitamin D deficiency PAST SURGICAL HISTORY Procedure Laterality Date - DELIVERY ONLY 2001 , low cervical - LIGATE FALLOPIAN TUBE 2002 Tubal ligation - LITHOTRIPSY [facility] Right 02/18/2018 - STEREOTACTIC LOCALIZATION BREAST BIOPSY Right 05/26/2019 ALLERGIES Beta Blockers [Beta-Blockers (Beta-Adrenergi c Blocking Agts)]; Kerrie Inhibitors; Environmental Allergies [Other]; Lexapro [ Escitalopram Oxalate]; Prozac [Fluoxetine Hcl]; Venom-Wasp; Venom-Yello w Hornet; Venom-Yellow Jacket Protein; Wellbutrin [Bupropion Hcl]; Zoloft [Sertraline Hcl] -This section reviewed with patient, no changes MEDICATIONS fluticasone-salmeterol HFA (ADVAIR HFA) 115-21 m cg/actuation inhaler Inhale 2 Puffs as instructed twice daily. Use with spacer. Rins e mouth out after use. albuterol (PROVENTIL) 2.5 mg /3 mL (0.083 %) nebulizer solution Use 3 mL via nebulizer every 4 hours as needed for Wheezing/Shortness of Breath. 1 vial contains 3 ml. amphetamine-dextroamphetamine XR (ADDERALL XR) 2 0 mg 24 hr capsule Take 20 mg by mouth once daily. famotidine (PEPCID) 20 mg tablet Take 1 tablet by mouth twic e daily. gabapentin (NEURONTIN) 100 m g capsule Take 1 capsule by mouth three times daily for 98 days. [place] Xuahxs-Mbzwgv-Jlci Oxid e (GOLD SOLANO MEDICATED BABY) 79-4-15 % powd Apply 1 application to affected area twice daily as needed (intertri go). hfmwpbt-iyuuhhjhz-vpgfszl D3 (CALCIUM 500+D) 500 mg(1,250mg) -200 unit per tablet Take 1 tablet by mouth twice daily with meals. naproxen (NAPROSYN) 500 mg t ablet Take 1 tablet by mouth twice daily as needed. B-complex with vitamin C (ALLBEE WITH C) tablet Take 1 tab let by mouth once daily. cholecalciferol (VITAMIN D3) 2,000 unit tablet Take 1 tablet by mouth once daily. Magnesium 250 mg tab Take 1 tablet by mouth once daily. L. rhamnosus-L. reuteri (REP HRESH PRO-B) 2.5 billion cell cap Take 1 capsule by mouth daily at bedtime. albuterol HFA (VENTOLIN HFA) 90 mcg/actuation inhaler Inhale 2 Puffs as instructed every 4 hours as needed. LORazepam (ATIVAN) 0.5 mg tab Take by mouth at bedtime as ne eded. triamcinolone acetonide (LIDIA ACORT AQ) 55 mcg nasal inhaler Use 2 Sprays in each nostril every morning. azelastine (ASTELIN,ASTEPRO) 0.1% nasal spray Use 2 Sprays i n each nostril daily at bedtime. guaiFENesin (MUCINEX) 600 mg 12 hr tablet Take 2 tablets by mouth twice daily as needed. cetirizine (ZYRTEC) 10 mg tablet Take 1 tablet b y mouth once daily as needed. ketotifen fumarate (ZADITOR) 0.025 % (0. 035 %) ophthalmic solution One drop to each eye 2 to 3 times a day as needed. rizatriptan (MAXALT) 10 mg t ablet Take 1 tablet by mouth as needed for Migraine Headache (see administration instructions). May repeat in 2 hours if needed amitriptyline (ELAVIL) 50 mg tablet Take 50 mg by mouth ngozi y at bedtime. topiramate (TOPAMAX) 50 mg tablet Take 50 mg by mouth twice daily. ziprasidone (GEODON) 40 mg capsule Take 40 mg by mouth daily with dinner. vitamin b complex (B COMPLETE) tab Take 1 tablet by mouth on ce daily. fluticasone-vilanterol (BREO ELLIPTA) 200-25 mcg/dose inhale r Inhale 1 Inhalation as instructed once daily. Rinse mouth out after u se. EPINEPHrine (EPIPEN) 0.3 mg/0.3 mL auto- injector Inject 0.3 mL intramuscularly as needed (for allergic reaction.Seek emergent m edical care immediately after use.Disp:one 2-pack w/education trainer). FAMILY HISTORY Problem Relation Age of Onset - Asthma Mother - Thyroid Mother - COPD Mother - other (depression) Mother - other (depression) Sister - Asthma Brother - Depression Brother - Diabetes Father - Hypertension Father - Diabetes Maternal Grandmother - Thyroid Maternal Grandmother - Cancer Maternal Grandfather unknown - Kidney Disease Paternal Grandmother - Cancer Paternal Grandfather - Asthma Daughter - Depression Daughter - Depression Daughter - other (ADD) Daughter Social History Tobacco Use - Smoking status: Never Smoker - Smokeless tobacco: Never Used Substance Use Topics - Alcohol use: No - Drug use: No Review of Systems Constitutional: Negative for fever. HENT: Positive for congestion, ear discharge and ear pain. N egative for nosebleeds and sore throat. Respiratory: Negative for cough, shortness of breath and whe ezing. Musculoskeletal: Negative for neck pain. Skin: Negative for itching and rash. Objective Blood pressure 112/78, pulse 87, temperature 36.9 ?C (98.5 ?F), temperature source Tympanic, resp. rate 18, weight 119 kg (262 lb 6.4 oz ), SpO2 99 %. Physical Exam Constitutional: She is oriented to perso n, place, and time and well-developed, well-nourished, and in no distress. Non-toxic ap pearance. She does not have a sickly appearance. No distress. HENT: Head: Normocephalic and atraumatic. Right Ear: Hearing, tympanic membrane, external ear and ear canal normal. Left Ear: Hearing and ear canal normal. There is drainage, s welling and tenderness. Tympanic membrane is perforated. Nose: Nose normal. Mouth/Throat: Uvula is midline, oropharynx is clear and mois t and mucous membranes are normal. Eyes: Pupils are equal, roun d, and reactive to light. Conjunctivae and lids are normal. Right eye exhibits no discharge. Left eye exhibits no discharge. No scleral icterus. Neck: Trachea normal and normal range of motion. Neck supple . Pulmonary/Chest: Effort normal. Lymphadenopathy: She has no cervical adenopathy. Neurological: She is alert and oriented to person, place, an d time. Skin: No rash noted. She is not diaphoretic. ASSESSMENT/PLAN: 1. Acute otitis externa of left ear, unspecified type - ICD9: 380.10, ICD10: H60.502 (primary diagnosis) -education material provided -use medication as prescribed -f/u if no better in 3-5 days -discussed proper ear hygiene -discussed prevention 2. Perforated tympanic membrane, left - ICD9: 384.20, ICD10: H72.92 -use medication as prescribed -follow up if symptoms persist, worsen, change Will schedule recheck Worsening s/s see ENT. Prescription instructions reviewed with patient as applicable. Patient advised if symptoms do not improve or if symptom s worsen sooner, to contact the office for further evaluation by their primary care physician. Savanna copeland red flag symptoms discussed with the patient. Reviewed ap propriate action plan to take if red flag symptoms occur. Patient agreeable to treatment ignacio Villegas APRN.SHARATH Villegas APRN.CNP 10/06/2019 2:32 PM Signed OTITIS MEDIA GENERAL INFORMATION: Otitis media is an infection of the midd le ear. The middle ear sits behind the eardrum. This infection may be caused by a virus or bacteria and often follows a cold. Children often have repeat ear infections. Otitis me tari is not contagious. INSTRUCTIONS: 1. An antibiotic has been prescribed. It should be taken exa ctly as prescribed. Do not stop the medicine even if the symptoms go away. 2. Yyhd-flp-jnlqasj pain medication may be taken or ot her pain medication as prescribed by the doctor. 3. Nothing should be placed in the ear unless instructed by your doctor. 4. The patient may return to school/daycare or work when t he temperature is normal (98.6 F or 37 C). 5. The patient should not swim while the ear is infected. CONTACT YOUR DOCTOR IF YOU OR YOUR CHILD: 1. Does not feel better within 36 hours. 2. Develops a temperature over 102E F (39E C). 3. Starts vomiting or has diarrhea. 4. Develops drainage from the affected ear. 5. Has any new problem that may be related to the medicine p rescribed. RETURN TO THE ED IF: 1. You or your child has a severe headache or pain around th e ear. 2. You or your child notice swelling around the ear. 3. You or your child has a seizure (convulsion), twitching o f the facial muscles, or passes out. 4. You or your child is dizzy, has a stiff neck, or cannot w alk or talk normally. 5. Your child becomes more irritable or listless (not interested in his or her surroundings, does not get soothed by you holdin g him or her).EXTERNAL OTITIS OVERVIEW External otitis is a condition that occurs when the ear deep l becomes irritated. The ear canal is the part of the ear that leads from the outer ear to the ear drum. External otitis can develop as a result of an infection, allergy, or skin problem. Swimmer's ear is the name for external otitis that occurs in a person who swims frequently. External otitis is different from otitis media (middle ear infections). When a person says that they have an ear infection, the y usually mean that they have otitis media. This article will discuss external otitis that is caus ed by an infection, as well as ways to prevent future episodes of external otitis. EXTERNAL OTITIS RISK FACTORS Several factors can increase your risk of developing externa l otitis. ? Cleaning the ear canal removes ear wax. Ear wax serv es to protect the ears from water, bacteria, and injury. Excessive alexandra catracho or scratching can injure the skin, potentially leading to infection. ? Swimming on a regular basis removes some of the ear wax, allowing water to soften the skin. Bacteria, w hich normally live in the ear canal, can then enter the skin more easily. ? Wearing devices that block the ear can als, such as hearing aids, headphones, or ear plugs, can increase the risk of e xternal otitis (if worn frequently) by injuring the skin. EXTERNAL OTITIS SYMPTOMS The most common symptoms of external otitis include: Pain in the outer ear, especially when the ear is pulled or moved ? Itchiness of the ear ? Fluid or pus leaking from the ear ? Difficulty hearing clearly EXTERNAL OTITIS TREATMENT Treatment of external otitis aims to reduce pain and eliminate the infection. In some cases, your healthcare provider will flush out your ear with water and hydrogen peroxide before you begin treatment; th is speeds healing by removing skin cells and excess ear wax. Ear drops ? Ear drops are us ually prescribed to reduce pain and swelling caused by external otitis. It is important to apply the ear d rops correctly so that they reach the ear canal: ? Lie on your side or tilt your head towards the opposite sh oulder. ? Fill the ear canal with drops. ? Lie on your side for [address] a cot ton ball in the ear canal for 20 minutes. ? Finish the entire course of treatment, even if you begin t o feel better within a few days. You should begin to feel bet ter within 36 to 48 hours of starting treatment. If your pain worsens or does not improve within this time perio d, call your healthcare provider. Pain medication ? If you have bothersome ear pain, you can t joshua a non-prescription pain medication. Avoid getting ears wet ? During treatmen t, you should avoid getting the inside of your ears wet. While showering, you can place a cotton ba ll coated with petroleum jelly in the ear. However, you should not swim for 7 to 10 days after starting treatment. Avoid we aring hearing aids and in-ear headphones until pain improves. EXTERNAL OTITIS PREVENTION The old saying, Don't put anything smaller than your elbo w in your ear to clean the ear is true. The e ar is self-cleaning; fingers, towels, cotton-tipped applicators, and other devices should not be used to c lean the inside of the ears. If you feel that you need to clean excessive wax from your ears, talk to your healthcare provider first. S /he may want to examine your ears to see if the ear wax is excessive. It is normal to have some ear wax (also called cerumen). If you have an excessive amount of ear wax, talk to your healthcare provider about safe ways to clean your ears. If you swim frequently, experts recommend the following tips to reduce the chance of developing external otitis. ? Shake your ears dry after swimming ? Blow dry your ears on a low setting, holding the dryer 12 inches away. ? Use ear drops after swimming to prevent ear in fections; these are available at most pharmacies without a prescription. ? Consider wearing ear plugs made for swimming. Referring Provider: SELF [[id number]] Allergies As of Date: 10/06/2019 Noted Allergy Reaction BETA BLOCKERS (BETA-BLOCKERS (BET*2013 15 - Contraindication-Medical Sharma* Comments: Avoid use of beta blockers and KERRIE inhibitors [facility] e patient is on venom immunotherapy KERRIE INHIBITORS 11/02/2014 15 - Contraindication-Medical Sharma* Comments: Avoid use of beta blockers and KERRIE inhibitors [facility] e patient is on venom immunotherapy Environmental Allergies [Other] 12/25/2006 Comments: Grasses, molds, dust mites, cats, cockroaches LEXAPRO (ESCITALOPRAM OXALATE) 10/30/2018 5 - Intolerance Comments: altered mood PROZAC (FLUOXETINE HCL) 10/30/2018 5 - Intolerance Comments: altered mood VENOM-WASP 09/26/2007 VENOM-YELLOW HORNET 09/26/2007 16 - Unknown Comments: Yellow and white faced hornet VENOM-YELLOW JACKET PROTEIN 09/26/2007 WELLBUTRIN (BUPROPION HCL) 05/08/2019 2 - Rash Comments: Agitation ZOLOFT (SERTRALINE HCL) 10/30/2018 5 - Intolerance Comments: altered mood Date Reviewed: 10/06/2019 Reviewed by: April Oliveira LPN - Fully Assessed Reason for Visit: Ear Pain [817] Cmt: left ear pain x 3 days Primary Visit Diagnosis:Acute otitis externa of left ear, un specified type [H60.502] Other Visit Diagnosis:Perforated tympanic membrane, left [H7 2.92] Order(s):amoxicillin (AMOXIL) 875 mg tabletTake 1 tablet by mouth twice daily for 10 days.Disp: 20 tabletRfl: 0 ofloxacin (FLOXIN) 0.3 % otic solutionUse 10 Drops in the le ft ear once daily for 7 days.Disp: 1 BottleRfl: 0 Prescriptions as of 10/06/2019 Sig: FLUTICASONE PROPIONATE-SALMET* Inhale 2 Puffs as instructed * ALBUTEROL SULFATE 2.5 MG/3 ML* Use 3 mL via nebulizer every * DEXTROAMPHETAMINE-AMPHETAMINE* Take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 FOR* Intractable migraine without status migrainosus*INVALID FOR* Intertrigo [L30.4] INVALID FOR* Visit Notes: >> Marie Angel LPN SunSep 03, 2019 10:01 AM Status: Sig santos Pt identified by name and birthdate. Allergy injections given subcutaneously. September 03, 2019 10:01 AM Patient states they did not take antihistamine. Immunotherapy Order written on: 04/03/[address] Ramirez arce [phone] If patient has asthma, patient states symptoms controlled: Y es Patient did not report a recent illness. Patient on Beta chaim:No Patient has their Epi pen with them, Yes Vial A Content: MIXED VESPID Patient did not have a large late local reaction to previous injection. Size of reaction na Concentration: 300 mcg Dose: 1 ml SQ Arm: left upper arm (proximal) Reaction after 30 minutes: None Vial B Content: WASP Patient did not have a large late local reaction to previous injection. Size of reaction na Concentration: 100 mcg Dose: 1 ml SQ Arm: right upper arm (proximal) Reaction after 30 minutes: None Previously instructed about signs and symptoms of local and systemic reactions. Appointment line and nurses station number given as well as injection times at administering location. Marie Angel LPN IT check by Rl Abbott LPN Encounter Status:Closed by MARIE ANGEL LPN on 09/03/19 [facility] note on 2018-07-31 [facility] Note Normal 0 07-31-2018 [facility] ([place]) ([id number]) xr shoulder minimum 2 views right on 2018-07-19 Thyrotropin Qn ORIGINALXR SHOULDER MINIMUM Normal 07-19-2018 [facility] 2 VIEWS RIGHT CLINICAL [facility] ([place]) STATEMENT: pain. Patient ([id number]) fell tonight, superior RIGHT shoulder pain COMPARISON: None FINDINGS: No fracture or dislocation is identified. The included thoracic structures are normal. The acromioclavicular joint is intact. A small subacromial spur noted. IMPRESSION: No acute fracture or dislocation. I have personally reviewed the images of this examination and agree with the resident's findings and interpretation. Interpreted By: Joey Myrick DOPreliminary Report By: Yudelka Dawson DOElectronically Signed By: Joey Myrick DO Dictated Date: 07/19/2018 12:02:00 AM Prelim Date: 07/19/2018 12:03:12 AM Sign Date: 07/19/2018 12:06:32 AM patient summary documents on 2018-07-19 Patient Summary Documents Normal 06-21 [facility] ([place]) ([id number]) pat edu on [facility] Edu Normal 07-19-2018 [facility] ([place]) ([id number]) [facility] note on 2018-07-19 [facility] Note Normal 0 07-19-2018 [facility] ([place]) ([id number]) cbc on 2018-07-19 Erythrocyte distribution 14.1 11.5-14.5 % Normal 07-19 [facility] Auto Ratio (RBC) [facility] ([place]) ([id number]) Comment: Performed By: #### CBC, ADIF F, ANEU ####[address] [address]#### B MP, GFR ####[place] [id number] [place] [address] Hematocrit Auto Volume 38.0 37.0-47.0 % Normal 018 [facility] Fraction (Bld) ([place]) (74061) Comment: Performed By: #### CBC, ADIF F, ANEU ####[place] [address] [place], [place] [address]#### B MP, GFR ####[address] [address] Hemoglobin mass conc 12.9 12.0-16.0 G/dL Normal 8 [facility] (Bld) [facility] ([place]) (74513) Comment: Performed By: #### CBC, ADIF F, ANEU ####[place] [address] [address]#### B MP, GFR ####[place] [address] MCH Auto Entitic mass 31.6 27.0-31.2 pg High 07-19-20 18 [facility] (RBC) ([place]) (0000 0) Comment: Performed By: #### CBC, ADIF F, ANEU ####[place] [address] [address]#### B MP, GFR ####[place] [address] MCHC Auto mass conc 33.9 33.0-37.0 G/dL Normal 07-19-2018 [facility] ([facility]) ([place]) (0000 0) Comment: Performed By: #### CBC, ADIF F, ANEU ####[place] [address]#### B MP, GFR ####[place] [address] MCV Auto Entitic volume 93.0 80.0-94.0 fL Normal 2017 [facility] ([facility]) ([place]) (0000 0) Comment: Performed By: #### CBC, ADIF F, ANEU ####[place] [address]#### B MP, GFR ####[place] [address] Platelet mean volume Auto 7.9 7.4-10.4 fL Normal 06-21 [facility] Entitic volume (Bld) ([place]) ([id number]) Comment: Performed By: #### CBC, ADIF F, ANEU ####[place] [address]#### B MP, GFR ####[address] [address] Platelets Auto #/vol 279 130-400 10 3/mcL Normal 8 [facility]) (36209) Comment: Performed By: #### CBC, ADIF F, ANEU ####[place] [address] [address]#### B MP, GFR ####[address] [address] RBC Auto #/vol ([facility]) 4.08 4.20-5.40 10 6/mcL Low 8 [facility] ([place]) (0000 0) Comment: Performed By: #### CBC, ADIF F, ANEU ####[place] [address] [address]#### B MP, GFR ####[place] [address] WBC Auto #/vol 5.80 4.60-10.80 10 3/mcL Normal 07-19-2018 [facility] ([place]) (05196) Comment: Performed By: #### CBC, ADIF F, ANEU ####[place] [address] [id number]#### B MP, GFR ####[address] [address] bmp on 2018-07-19 Calcium mass conc 8.8 8.4-10.2 mg/dL Normal 07-19-2018 [facility]) (14990) Comment: Performed By: #### CBC, ADIF F, ANEU ####[place] [address] [address]#### B MP, GFR ####[place] [address] Chloride molar conc 113 98-107 mmol/L High 07-19-2018 [facility] ([place]) (84016) Comment: Performed By: #### CBC, ADIF F, ANEU ####[place] [address] [address]#### B MP, GFR ####[address] [address] CO2 molar conc 26 22-29 mmol/L Normal 07-19-2018 [facility] ([place]) (58038) Comment: Performed By: #### CBC, ADIF F, ANEU ####[place] [id number]#### B MP, GFR ####[place] [address] Creatinine mass conc 0.99 0.55-1.02 mg/dL Normal 8 [facility] ([place]) (0000 0) Comment: Performed By: #### CBC, ADIF F, ANEU ####[place] [address]#### B MP, GFR ####[place] [address] Electrolyte Balance 10.0 mEq/L Normal 07-19-2018 [facility] ([place]) (67882) Comment: Performed By: #### CBC, ADIF F, ANEU ####[place] [address]#### B MP, GFR ####[place] [address] Glucose mass conc 134 70-105 mg/dL High 07-19-2018 [facility] ([place]) (52938) Comment: Performed By: #### CBC, ADIF F, ANEU ####[place] [address]#### B MP, GFR ####[place] [address] Potassium molar conc 4.2 3.5-5.1 mmol/L Normal 8 [facility] ([place]) (0000 0) Comment: Performed By: #### CBC, ADIF F, ANEU ####[place] [id number]#### B MP, GFR ####[address] [address] Sodium molar conc 149 136-145 mmol/L High 07-19-2018 [facility] ([place]) (63425) Comment: Performed By: #### CBC, ADIF F, ANEU ####[place] [address] [place], [place] [address]#### B MP, GFR ####[address] [address] Urea nitrogen mass conc 18 7-18 mg/dL Normal 2017 [facility] ([place]) (0000 0) Comment: Performed By: #### CBC, ADIF F, ANEU ####[place] [address] [place], [place] [address]#### B MP, GFR ####[address] [address] Urea nitrogen/Creatinine mass 18 7-27 ratio Normal 07-19-2018 [facility] ([place]) (07630) Comment: Performed By: #### CBC, ADIF F, ANEU ####[place] [address] [address]#### B MP, GFR ####[address] [address] .neuabs on Neutrophil, Absolute 3.50 2.85-6.16 10 3/mcL Normal 8 [facility] ([place]) (39578) Comment: Performed By: #### CBC, ADIF F, ANEU ####[place] [address] [address]#### B MP, GFR ####[address] [address] .gfr on 2018-07-19 GFR Non- 62 ml/min/1.73sqm Normal 07-19-2018 [facility] ([place]) (60364) Comment: Result Comment: GFR Populati on mean for , Non- Americans Ages 20-29 = 116 m L/min/1.73 sq.m. Ages 30-39 = 107 mL/min/1.73 sq.m. Ages 40-49 = 99 mL/min /1.73 sq.m. Ages 50-59 = 93 mL/min/1.73 sq.m. Ages 60-69 = 85 mL/min/1.73 sq.m. Ages 70+ = 75 mL/min/1.73 sq.m.Chronic Kidney Disease: Less than 60 mL/min/1.73 square metersEnd Stage Renal Disease: Less than 15 mL/min /1.73 square meters Performed By: #### CBC, ADIF F, ANEU ####[place] [address] [place], [place] [address]#### B MP, GFR ####[facility] [place] [address] GFR 75 ml/min/1.73sqm Normal 06-21 [facility] ([place]) (0000 0) Comment: Result Comment: GFR Populati on mean for , Non- Americans Ages 20-29 = 116 m L/min/1.73 sq.m. Ages 30-39 = 107 mL/min/1.73 sq.m. Ages 40-49 = 99 mL/min /1.73 sq.m. Ages 50-59 = 93 mL/min/1.73 sq.m. Ages 60-69 = 85 mL/min/1.73 sq.m. Ages 70+ = 75 mL/min/1.73 sq.m.Chronic Kidney Disease: Less than 60 mL/min/1.73 square metersEnd Stage Renal Disease: Less than 15 mL/min /1.73 square meters Performed By: #### CBC, ADIF F, ANEU ####[place] [address] [place], [place] [address]#### B MP, GFR ####[facility] [place] [address] .auto diff on 07-19 Ammonia mass conc 0.40 0.15-1.00 10 3/mcL Normal 07-19-2018 [facility] () [facility] ([place]) ([address]74) Comment: Performed By: #### CBC, ADIF F, ANEU ####[place] [address] [place], [place] [address]#### B MP, GFR ####[address] [address] Basophils Auto #/vol 0.10 0.00-0.19 10 3/mcL Normal 8 [facility]) (01801) Comment: Performed By: #### CBC, ADIF F, ANEU ####[place] [address] [address]#### B MP, GFR ####[address] [address] Basophils/100 WBC Auto (d) 1.0 0.0-2.5 % Normal 0 07-19-2018 [facility] ([place]) (0000 0) Comment: Performed By: #### CBC, ADIF F, ANEU ####[place] [address]#### B MP, GFR ####[address] [address] Eosinophils Auto #/vol 0.20 0.00-0.40 10 3/mcL Normal [address] [place] [address]) ([address]) Comment: Performed By: #### CBC, ADIF F, ANEU ####[place] [address]#### B MP, GFR ####[address] [address] Eosinophils/100 WBC Auto 3.1 0.0-7.0 % Normal 07-19 [facility]) (20809) Comment: Performed By: #### CBC, ADIF F, ANEU ####[place] [address] [address]#### B MP, GFR ####[address] [address] Lymphocytes Auto #/vol 1.70 0.77-3.85 10 3/mcL Normal [address] [place] [address] ([place]) ([address]) Comment: Performed By: #### CBC, ADIF F, ANEU ####[place] [address]#### B MP, GFR ####[facility] [place] [address] Lymphocytes/100 WBC Auto 29.3 10.0-50.0 % Normal 07-19 [facility]) (36586) Comment: Performed By: #### CBC, ADIF F, ANEU ####[address] [address]#### B MP, GFR ####[address] [address] Monocytes/100 WBC Auto (Bld) 7.0 1.7-13.0 % Normal 0 07-19-2018 [facility] ([place]) ([id number]) Comment: Performed By: #### CBC, ADIF F, ANEU ####[address] [address]#### B MP, GFR ####[address] [address] Neutrophils/100 WBC Auto 59.6 37.0-80.0 % Normal 07-19 [facility] ([facility] ([place]) ([id number]) Comment: Performed By: #### CBC, ADIF F, ANEU ####[place] [id number]#### B MP, GFR ####[address] [address] patient summary documents on 2018-04-19 Patient Summary Documents Normal 06- [facility] ([place]) ([id number]) pat edu on Pat Edu Normal 04-19-2018 [facility] ([place]) ([id number]) [facility] on 2018-04-19 [place] [facility] Note Normal 0 04-19-2018 [facility] ([place]) ([id number]) xr abdomen 1v supine on 2018-02-26 XR ABDOMEN 1V * * *Final Report* * *DATE OF Normal 02-26-2018 [facility] EXAM: Feb 26 2018 3:40PM [facility] ([id number]) 5289 - XR ABDOMEN 1V SUPINE / REASON: URETERAL STONE * * * * Physician Interpretation * * * *RESULT: ABDOMEN, 1 VIEW.CLINICAL INFORMATION: History of ureteral stoneTECHNIQUE: Supine abdomen, 2 image(s)COMPARISON: CT 02/12/2018RESULT: Right ureteral stent in place. Small calcifications are seen associated with the distal stent which could represent calculi. No other urinary tract calculi. No dilated bowel loops or acute skeletal abnormalities.IMPRESSION: RIGHT STENT PLACED, SMALL STONES MAY BE PRESENT ALONG THE DISTAL ASPECT OF THE STENTTranscribed Using Voice RecognitionTranscribe Date/Time: Feb 27 2018 9:04ADictated by: Alda CRISTOBAL examination was interpreted and the report reviewed and electronically signed by: NICOLASA MURDOCK MD on Feb 27 2018 9:05AM [id number] xr abdomen 1v supine on 2018-02-18 XR ABDOMEN 1V * * *Final Report* * *DATE OF EXAM: Normal 02-18-2018 [facility] SUPINE Feb 18 2018 11:40AM [facility] 5289 - XR [facility] ABDOMEN 1V SUPINE / [id number] REASON: PAIN * * * * Physician Interpretation * * * *RESULT: INTRAOPERATIVE FLUOROSCOPYHISTORY: PainCOMPARISON: CT abdomen 02/05/1718TECHNIQUE:DIAGNOSTIC imaging was performed.Fluoroscopic Radiation Summary:Plane A, Air Kerma: 4.6 mGyDose Area Product (DAP): 0.0 mGy*zwG2Ptbgjr time: 0:08 min:secRESULT: Fluoroscopy was used in the operating room for procedural guidance. 1 films were obtained. Study was performed by Dr. GABRIEL S LURIADouble-J right ureteral stent is present. Proximal loop overlies the right upper quadrant. Distal loop overlies the right pelvis.IMPRESSION: INTRAOPERATIVE GUIDANCETranscribed Using Voice RecognitionTranscribe Date/Time: Feb 18 2018 11:52ADictated by: Alda RICH examination was interpreted and the report reviewed and electronically signed by: RODRIGUEZ NAIR MD on Feb 18 2018 11:52AM [id number] urine culture on 06-03-02 Urine culture, Sp. Request/Comment: - Specimen received in preserva tive Normal 02-18-2018 [facility] bacteria ([id number]) Culture Result - No growth (<100 CFU/ml) Comment: Performed By: #### URCUL ### #[facility] [place], [place] [phone] pt ed on 2018-02-18 PT ED HNO ID: [id number]: April Muñoz 02-18-2018 [facility] (Rn) JENNIE Ramirezervice: ([id number]) (none)Author Type: Registered NurseType: Patient EducationFiled: 02/18/2018 3:31 PMNote Text:PATIENT EDUCATION TOPIC: PROCEDURE / SURGERY: Procedure/Surgery:PATIENT NAME: Bhavesh MerrillnMRN: [id number] LOCATION: Room/bed info not foundREADINESS TO LEARNCOGNITIVE ABILITY: Alert and orientedMOTIVATION TO LEARN: EagerFAMILY SUPPORT: High - Very involved in pt careINSTRUCTION PROVIDED TO: Patient and friend/otherPATIENT LEARNS BEST BY: Verbal InstructionFACTORS AFFECTING LEARNING: NonePHYSICAL LIMITATIONS AFFECTING LEARNING: NoneLEARNING RESPONSEDIAGNOSIS: ADULT:PATIENT/FAMILY RESPONSE: Information received as demonstrated byinterest and questionsMETHOD OF INSTRUCTION: Individual instructionFOLLOW-UP PLAN: Complete - No need for follow-upINSTRUCTIONAL AIDS USED: NASUPPLEMENTAL MATERIAL PROVIDED TO PATIENT: NoneREFERRAL (RECOMMENDATION): NoneElectronically Signed By: April Ramirez RN operative no on 201 06-22-02 OPERATIVE NO HNO ID: [id number]: Casey Rangel) Toni 02-18-2018 [facility] EricsonService: UrologyAuthor Type: Hospital ResidentType: Operative ReportFiled: ([id number]) 02/18/2018 1:05 PMNote Text:OPERATIVE/PROCEDURE REPORTLOG ID: [id number]/Procedure Date: 02/18/2018Incision/Procedure Start Time: 11:11 AMIncision Close/Procedure End Time:Surgeon(s)/Proceduralist(s) and Field Investigator(s):Surgeon(s) and Role: * Nery Canela - Primary * Casey (Res) [place] - Resident - AssistingProcedure(s):Cystoscopyright Ureteroscopy with laser lithotripsyInsertion of right indwelling JJ ureteral stentPhysician fluoroscopy time < 1hrAnesthesia: Monitored Anesthesia CareOperative Indications: This is a 42 year old year old female with a [id number] distal ureteral calculus and renal colic who after discussing therisks, benefits, and alternatives of the procedure has elected to pursuemanagement of their condition via the aforementioned surgery.Procedure Details:1) 6 mm right distal ureteral stone, inpacted2) Good Fragmentation and removal of the stone3) Good Placement of the JJ stent, proximal and distal coils confirmed byFluroscopic images, still images saved and printedProcedure Details:The patient was correctly identified and the operative plan was confirmedwith the patient and the operative team. A weight appropriate dose ofprophylactic antibiotics was administered intravenously prior to theprocedure and sequential compression devices were applied to the lowerextremities and activated prior to induction of anesthesia. The patientwas placed in supine position. General anesthesia was induced. The patientwas repositioned in dorsal lithotomy position. All pressure points werepadded per protocol and the operative area was prepped and draped in theusual sterile fashion.A 21-fr panendoscope was inserted atraumatically. Cystoscopy revealed notumors or suspicious lesions. The orifices were orthotopic bilaterally.The right orifice was cannulated with an Amplatz superstiff wire. Thescope was removed. A dual lumen catheter was inserted into the orificeover the Amplatz wire and a second amplatz superstiff wire was deployed.Over the working wire, a semi-rigid ureteroscope was insertedatraumatically. Ureteroscopy revealed a roughly 6mm stone impacted in thedistal ureter, distal to the pelvic inlet. Using a 365 micron fiber, thestone was dusted into < 1 mm fragments. Ureteroscopy at the conclusion ofthe procedure revealed no residual stones to the level of the UPJ. Thescope was removed. Over the safety wire, we re-inserted the panendoscope.A 6fr x 32cm multilength stent was deployed safely with a good proximalcoil noted fluoroscopically and distal coil visually. The bladder wasemptied and scope removed.Counts were correct. Sign-out was performed with the surgical teamconfirming stone specimen. The patient tolerated the procedure well,emerged from anesthesia without incident, and was transferred to PACU instable condition. The primary surgeon/proceduralist performed theprocedure with assistance.Pre-Op/Pre-Procedure Diagnosis: Pre-Op Diagnosis Codes: * Right ureteral calculus [N20.1]Post-Op/Post-Procedure Diagnosis: Post-Op Diagnosis Codes: * Right ureteral calculus [N20.1]Estimated Blood Loss: 2 mlsSpecimens: * No specimens in log *Kidney stones for analysisImplantable Devices: NoneDrains: right Indwelling 6 Fr. X 35 cm ureteral stentComplications: NoneThe primary surgeon/proceduralist performed the procedure with assistance.SIGNATURE: Casey Kunz MD PATIENT NAME: Bhavesh MerrillnDATE: February 18, 2018 : 11:42 AM PAGER/CONTACT #: [phone] nursing prog on 06-22-02 NURSING HNO ID: [id number]: Sa wolff (Rn) Ashley RNService: (none)Author Type: Normal 02-18-2018 [employer] PRO Registered NurseType: Mouna madrid Progress NoteFiled: 02/18/2018 3:30 PMNote Text: Hospital Nursing Progress NotePatient Name: Bhavesh MerrillnMRN: [id number] ([id number]) Location: Room/bed info not found Daily Note:Visitor at bedside, denies pain, ta aj water, crackers withoutnausea. Up to bathroom, voided QS pink colored urine, states no pain withurination.1300-ambulated to bathroom, voided witho ut pain, urine pink in color.This note was completed by: April Ramirez RN NURSING HNO ID: [id number]: Eduardo pena (Rn) JENNIE Adlerervice: NursingAuthor Normal 02-18-2018 NEXAGE Type: Registered NurseType: Nursing Progress NoteFiled: 02/18/2018 9:36 AMNote Hospital Text:PRE OP LEARNING ASSESSMENTPROCEDURE/SURGERY: SURG BARRETT: cystourethroscopy ([id number]) lithotripsy pyeloscopyREADINESS TO LEARNCOGNITIVE ABILITY: A lert and orientedMOTIVATION TO LEARN: InterestedF AMILY SUPPORT: High - Very involved in pt carePATIENT LEARNS BEST BY: Individual InstructionWritten Instruction - Hand-outsVerbal InstructionF ACTORS AFFECTING LEARNING: NonePHYSICAL LIMITATIONS AFFECTING LEARNING: NoneElectronically Signed By: Jimena skaggs RN In Department: [facility] PREADMISSION OP history physical on 2018-02-18 HISTORY PHYSICAL HNO ID: [id number]: Normal 02-18-2018 [facility] ([id number]) UrologyAuthor Type: PhysicianType: HANDPFiled: 02/18/2018 10:07 AMNote Text:UPDATED HISTORY AND PHYSICAL EXAMINATIONSERVICE DATE: 02/18/2018SERVICE TIME: 10:06 AMPHYSICAL EXAM MUST BE COMPLETED ON ADMISSIONThe History and Physical (completed in the past 30 days) has been reviewedand the patient has been examined. The contents accurately reflect thepatient's condition with the following additions or revisions since theHANDP was completed.Examination indicates no changes.This HANDP can be found in the Electronic Medical Record dated 02/08/18.SIGNATURE: Nery Canela MD PATIENT NAME: Bhavesh MerrillnDATE: February 18, 2018 : 10:06 AM PAGER: [phone] calculi analysis on 2018-02-18 Calculus Type No Information Provided Normal [facility] ([id number]) Comment: Performed By: #### CSA ####C [facility] [place], [place] [phone] Note (NOTE) Normal 02-18-2018 [facility] ([id number]) Comment: Result Comment: Calculus Col or: BROWNCalculus Size & Weight: MULTIPLE PIECES, 0.0040 GRAMSComposit ion: CALCIUM OXALATE MONOHYDRATE - 70% CALCIUM OXALATE DIHYDRATE - 20% LOAN R COMPONENTS - 10%This test was developed and its performance characterist icsdetermined by the [facility] and[facility] ([facility]).It has not been cleared or approved by the [facility] is regulated under CLIA as qualified to performhigh-complexity te sting.This test is used for clinical purposes. It should not be regarded as investigational or for research. Performed By: #### CSA ####C [facility] [address] [place], [place] [phone] anes preop on 02-18 ANES PREOP HNO ID: [id number]: Glendy Conklin al 02-18-2018 [facility] HoytService: [facility] Type: AnesthesiologistType: ([id number]) Anesthesia PreOpFiled: 02/18/2018 9:25 AMNote Text: ANESTHESIOLOGY DAY OF SURGERY NOTESERVICE DATE: 02/18/2018SERVICE TIME: 9:23 AMDOB: 1975Procedure(s) (LRB):LASER CYSTOURETHROSCOPY W/ URETEROSCOPY AND/OR PYELOSCOPY W/ LITHOTRIPSYHOLMIUM (Right)Surgeon(s):Nery Ramsey body mass index is 45.88 kg/(m2) as calculated from thefollowing: Height as of 02/14/18: 160 cm (5' 3). Weight as of 02/14/18: 117.5 kg (259 lb).Most recent hematocrit and potassium results:Hematocrit 46.2 10/10/2016Potassium 4.5 10/10/2016ANES DOS/PREOP NOTE:Vitals: 820531AL: 177/86Pulse: 108Resp: 18Temp: 36.5 ?C (97.7 ?F)TempSrc: OralSpO2: 97%ACTIVE PROBLEM LISTAllergic Rhinitis Due to Fungal SporesObesity, UnspecifiedObstructive Sleep Apnea (Adult) (Pediatric)Toxic Effect of VenomModerate Persistent AsthmaAllergic Rhinitis Due to Dust MiteAllergic Rhinitis Due to Cat HairSeasonal Allergic Rhinitis Due to PollenRight Ureteral CalculusPAST MEDICAL HISTORYDiagnosis Date- Allergic rhinitis, cause unspecified Allergy, airborne subst- Bee allergy status- Environmental allergies- Hypercholesteremia 11/2014- Impaired fasting glucose- Migraines- Unspecified asthma(493.90) weather, allergy and exercise triggersPAST SURGICAL HISTORYProcedure Laterality Date- DELIVERY ONLY 2001 , low cervical- LIGATE FALLOPIAN TUBE 2002 Tubal ligationFAMILY HISTORYProblem Relation Age of Onset- Asthma Mother- Thyroid Mother- depression [OTHER] Mother- depression [OTHER] Sister- Asthma Brother- unknown [OTHER] Father- depression [OTHER] BrotherSocial History:Social HistorySubstance Use Topics- Smoking status: Passive Smoke Exposure - Never Smoker- Smokeless tobacco: Never Used Comment: smokes outside- Alcohol use NoCurrent Outpatient Prescriptions on File Prior to Encounter:FLUoxetine (PROZAC) 20 mg capsule Take 20 mg by mouth once daily.FLUoxetine HCl (PROZAC) 40 mg capsule Take 20mg once daily.tamsulosin ER (FLOMAX) 0.4 mg cp24 Take 1 capsule by mouth daily atbedtime for 14 days.traMADol (ULTRAM) 50 mg tablet Take 1 tablet by mouth every 6 hours asneeded for up to 7 days.ciprofloxacin HCl (CIPRO) 500 mg tablet Take 1 tablet by mouth twice dailyfor 10 days.fluticasone-salmeterol (ADVAIR DISKUS) 250-50 mcg/dose dsdv One inhalationtwice a day. Rinse mouth out after use.cetirizine (ZYRTEC) 10 mg tablet Take 1 tablet by mouth once daily asneeded.busPIRone (BUSPAR) 5 mg tablet Take 1 tablet by mouth three times daily asneeded (anxiety attack).Omeprazole 40 mg capsule Take 1 capsule by mouth once daily.riboflavin, vitamin B2, (VITAMIN B-2) 100 mg tab Take 4 tablets by mouthonce daily.topiramate (TOPAMAX) 25 mg tablet Take 1 tablet by mouth as directed. Take1 tablet PO daily at bedtime x 2 weeks then increase to 2 tablets PO atbedtimenaproxen (NAPROSYN) 500 mg tablet Take 1 tablet by mouth twice daily asneeded.EPINEPHrine (EPIPEN) 0.3 mg/0.3 mL auto-injector Inject 0.3 mLintramuscularly as needed (for allergic reaction.Seek emergent medicalcare immediately after use.Disp:one 2-pack w/education trainer).ketotifen fumarate (ZADITOR) 0.025 % (0.035 %) ophthalmic solution Onedrop to each eye 2 to 3 times a day as needed.fluticasone (FLONASE) 50 mcg/actuation nasal spray Use 1-2 Sprays in eachnostril once daily.albuterol HFA (VENTOLIN HFA) 90 mcg/actuation inhaler Inhale 2 Puffs asinstructed every 4 hours as needed.rizatriptan (MAXALT) 10 mg tablet Take 1 tablet by mouth as needed forMigraine Headache (see administration instructions). May repeat in 2 hoursif neededamitriptyline (ELAVIL) 25 mg tabletMagnesium 250 mg tab Take 1 tablet by mouth once daily.No current facility-administered medications on file prior to encounter.Current Outpatient Prescriptions:FLUoxetine (PROZAC) 20 mg capsule Take 20 mg by mouth once daily. Disp:Rfl: 3FLUoxetine HCl (PROZAC) 40 mg capsule Take 20mg once daily. Disp: Rfl:tamsulosin ER (FLOMAX) 0.4 mg cp24 Take 1 capsule by mouth daily atbedtime for 14 days. Disp: 14 capsule Rfl: 0traMADol (ULTRAM) 50 mg tablet Take 1 tablet by mouth every 6 hours asneeded for up to 7 days. Disp: 28 tablet Rfl: 0ciprofloxacin HCl (CIPRO) 500 mg tablet Take 1 tablet by mouth twice dailyfor 10 days. Disp: 14 tablet Rfl: 0fluticasone-salmeterol (ADVAIR DISKUS) 250-50 mcg/dose dsdv One inhalationtwice a day. Rinse mouth out after use. Disp: 1 Inhaler Rfl: 11cetirizine (ZYRTEC) 10 mg tablet Take 1 tablet by mouth once daily asneeded. Disp: 30 tablet Rfl: 11busPIRone (BUSPAR) 5 mg tablet Take 1 tablet by mouth three times daily asneeded (anxiety attack). Disp: 60 tablet Rfl: 3Omeprazole 40 mg capsule Take 1 capsule by mouth once daily. Disp: 90capsule Rfl: 3riboflavin, vitamin B2, (VITAMIN B-2) 100 mg tab Take 4 tablets by mouthonce daily. Disp: 120 tablet Rfl: 4topiramate (TOPAMAX) 25 mg tablet Take 1 tablet by mouth as directed. Take1 tablet PO daily at bedtime x 2 weeks then increase to 2 tablets PO atbedtime Disp: 60 tablet Rfl: 4naproxen (NAPROSYN) 500 mg tablet Take 1 tablet by mouth twice daily asneeded. Disp: 60 tablet Rfl: 4EPINEPHrine (EPIPEN) 0.3 mg/0.3 mL auto-injector Inject 0.3 mLintramuscularly as needed (for allergic reaction.Seek emergent medicalcare immediately after use.Disp:one 2-pack w/education trainer). Disp: 1 Each Rfl: 1ketotifen fumarate (ZADITOR) 0.025 % (0.035 %) ophthalmic solution Onedrop to each eye 2 to 3 times a day as needed. Disp: 1 Bottle Rfl: 11fluticasone (FLONASE) 50 mcg/actuation nasal spray Use 1-2 Sprays in eachnostril once daily. Disp: 1 Bottle Rfl: 11albuterol HFA (VENTOLIN HFA) 90 mcg/actuation inhaler Inhale 2 Puffs asinstructed every 4 hours as needed. Disp: 1 Inhaler Rfl: 2rizatriptan (MAXALT) 10 mg tablet Take 1 tablet by mouth as needed forMigraine Headache (see administration instructions). May repeat in 2 hoursif needed Disp: Rfl:amitriptyline (ELAVIL) 25 mg tablet Disp: Rfl:Magnesium 250 mg tab Take 1 tablet by mouth once daily. Disp: 30 tabletRfl: 5Current Facility-Administered Medications:lidocaine 10 mg/mL (1 %) 1-2 mg injection (XYLOCAINE) 0.1-0.2 mLINTRADERMAL PRN [facility] Lurialactated ringers infusion 5-30 mL/hr INTRAVENOUS CONTINUOUS Gabriel SLuria[START ON 02/19/2018] ceFAZolin iv piggyback 2 g in D5W (iso-osmotic) 100 mL(ANCEF) 2 g INTRAVENOUS Internet Sales Representative to OR [facility] Luriascopolamine 1 mg over 3 days 1 Patch (TRANSDERM-SCOP) 1 Patch TRANSDERMALONCE Glendy RyderAndscopolamine - VERIFY patch OTHER q 8 H Glendy Sutton[START ON 02/19/2018] scopolamine - REMOVE PATCH OTHER ONCE Glendy Dell RyderAllergies:ALLERGIESAllergen Reactions- Environmental Aller* Grasses, molds, dust mites, cats, cockroaches- Venom-Wasp- Venom-Yellow Hornet Unknown Yellow and white faced hornet- Venom-Yellow Jacket*DOS EXAM: Adequate NPO status: YesAnesthetic risks, benefits, alternatives, personnel and consent discussed:YesPatient agrees to proceed: YesPrevious Anesthesia: PONVAirway Assessment: MP 1; Neck ROM: Limited Extension; Airway Evaluation:Thick neck, Short Thyromental Distance and Small Mouth OpeningSymptoms of Sleep Apnea: Dx'd with OSADentition: Teeth intactAdditional Physical Exam:Lungs: Lungs clear to auscultation. Good diaphragmatic excursion.Cardiac: normal S1 and S2; no rubs, no murmurs, and no gallopsAdditional Pertinent Findings: N/ABlood Products: Not anticipated for this procedure.Anesthetic Plan: General, Standard ASA MonitorsPain Management Plan: Parenteral or Oral and per Surgical ServiceASA Class: 2Other Medical Problems: NoneChronic Beta Chaim medication administered within 24 hours: N/AI have interviewed and examined the patient. I have reviewed the medicalrecord and/or the pre-anesthesia evaluation, pertinent labs, and testresults.Significant changes in the patient's condition since the History andPhysical, not otherwise documented in primary service progress notes: NoThis contains updated information obtained within 48 hours ofSurgery/Procedure.SIGNATURE: Glendy Ryder MD PATIENT NAME: Bhavesh MerrillnDATE: February 18, 2018 : 9:23 AM CSN: [id number] anes post on 02-18 ANES POST HNO ID: [id number]: Samantha Muñoz 02-18-2018 [facility]Service[facility] ([id number]) AnesthesiologyAuthor Type: AnesthesiologistType: Anesthesia PostOpFiled: 02/18/2018 3:00 PMNote Text:POST ANESTHESIA EVALUATION NOTESERVICE DATE: 02/18/2018SERVICE TIME: 3;00DOB: 1975Vitals: 02/18/1811Temp: 36.5 ?C (97.7 ?F) 36.6 ?C (97.9 ?F) 36.6 ?C (97.9 ?F) 02/18/1811BP: 177/86 137/82 133/76 02/18/1811Pulse: 108 93 79 02/18/1811Resp: 18 16 16 4 02/19/1812SpO2: 97% 98% 97%Validated Vital Signs: YesPOST ANES STATUS: No apparent anesthetic complications. The patient isappropriately hydrated with stable respiratory and cardiovascular status.Patient has safe and adequate airway control. The patient has appropriatepain relief and no significant post operative nausea or vomiting. Thepatient has achieved baseline mental status.Further assessment by Anesthesia Service: NoneOther Remarks:SIGNATURE: Samantha Monzon MD PATIENT NAME: Bhavesh MerrillnDATE: February 18, 2018 : 2:59 PM PAGER/CONTACT #: nursing prog on 201 06-21-30 NURSING PROG HNO ID: [id number]: Jimena Conklin [facility] 02-15-2018 [facility] (Rn) JENNIE Gordonervice: [facility] ([id number]) (none)Author Type: Registered NurseType: Nursing Progress NoteFiled: 02/15/2018 11:35 AMNote Text:PACC Nurse Progress NoteHistory AND Physical:PACC Visit Date: No PACC visit.Original HANDP Date: 02/08/18ED visit Date: N/AOutside HANDP Scanned Date: N/ALabs Within Last 6 Months:UA: Date 02/14/18 - results reviewed in chart by Dr. Gray C+S: Date 02/09/18Imaging Within Last 12 Months:See chartCardiac Testing:N/ALast Menstrual Period:LMP Date: Not recordedPostmenopausal >1yr: No,S/P Hysterectomy: NoBMI Percentile (PEDS):N/ARisk Assessment:N/AAnesthesia Review:N/ANarrative:Called patient and provided PACC pre-op phone instructions. Patientverbalized an understanding.PATIENT PREOPERATIVE INSTRUCTIONSDr. Canela has scheduled you for your procedure at this surgery center:[facility]: [phone] -- [phone] [phone].Please read below carefully for your personalized instructions.Blood Thinning Medications:- Stop NSAIDS (Ibuprofen, Advil, Aleve, Motrin, Celebrex, Mobic, etc.)(today) days before surgery, as directed by your surgeon.- Stop Aspirin (today) days before surgery, as directed by your surgeon.- Stop Vitamin E, ALL multi-vitamins, herbals and dietary supplements(today) days before surgery.- You may take Tylenol (Acetaminophen) or any of your pain medicationsthat do not contain aspirin or NSAIDS as needed.Dietary Restrictions:- No solid food after midnight.- You may have 12 ounces of clear liquids (water, clear juices such asapple juice or gatorade, carbonated beverages, clear tea, black coffee,jello) until 2 hours before scheduled arrival at facility.- Do not drink any alcohol after midnight the night before your surgery.Pain Medications:Tramadol or Tylenol ok if needed.Medications:Approved medications to take the morning of surgery with a sip of water:Buspar if needed, Tramadol if needed.Tylenol or Tramadol ok if needed.If you start any new medications after today's visit, please contact thesurgery center above.Important Reminders:- If you are prescribed inhalers for breathing, continue using them ANDbring them to the surgery center.- Candy, mints, gum and tobacco products are NOT permitted the morning ofsurgery.- Hearing aids, dentures and glasses may be worn the morning of surgery.- NO jewelry, body piercings, makeup, nail burkinan, hairpins or contactsare to be worn the day of surgery.shower/bathe with antibacterial soap morning of surgeryIf you develop symptoms such as a fever, cold, or flu, or have otherchanges to your health within TWO DAYS of scheduled surgery or the morningof surgery, please contact the surgery center above.Personal Belongings:- Leave ALL valuables and money at home or with family members.For Outpatient Procedures: - YOU MUST HAVE A RESPONSIBLE LICENSED MASSAGE THERAPIST TAKE YOU HOME. A ARTISTS' BOOKING REPRESENTATIVE OR CABDRIVER CANNOT BE MADE A RESPONSIBLE LICENSED MASSAGE THERAPIST.- We recommend that a responsible person stays with you overnight to takecare of you.- You cannot stay in a hotel alone after outpatient surgery. You will notbe permitted to have your surgery, if you do not have someone to take careof you. Arrival Time for Surgery: -[facility] will receive a call from [facility] the afternoonbefore surgery after 2:30 pm (or Sunday for Sunday surgery) for ascheduled arrival time.- If you have not heard by 4 pm, please [facility]at [phone].Please be aware that emergency situations arise, which may delay or changeyour surgical time. If this happens, we will notify you as soon aspossible and regret any inconvenience.JENNY Choudhuryre-op Considerations:Patient states that she has a history of YOBANI - does not currently haveC-pap.Chart Check:Camille Gordon RNMarjimmy 2017 11:19 AM hosp on 2018-02-15 HOSP Patient:Bhavesh Beaulieu KMRN: [facility] 3(1.6 m)Weight:259 lb (117.482 (31117) kg)Outpatient Medications as of 02/18/18:FLUoxetine (PROZAC) 20 mg capsuleFLUoxetine HCl (PROZAC) 40 mg capsuletamsulosin ER (FLOMAX) 0.4 mg [id number] (ULTRAM) 50 mg tabletciprofloxacin HCl (CIPRO) 500 mg tabletfluticasone-salmeterol (ADVAIR DISKUS) 250-50 mcg/dose dsdvEPINEPHrine (EPIPEN) 0.3 mg/0.3 mL auto-injectorketotifen fumarate (ZADITOR) 0.025 % (0.035 %) ophthalmic solutionfluticasone (FLONASE) 50 mcg/actuation nasal sprayalbuterol HFA (VENTOLIN HFA) 90 mcg/actuation inhalercetirizine (ZYRTEC) 10 mg tabletrizatriptan (MAXALT) 10 mg tabletbusPIRone (BUSPAR) 5 mg tabletOmeprazole 40 mg capsuleamitriptyline (ELAVIL) 25 mg tabletMagnesium 250 mg tabriboflavin, vitamin B2, (VITAMIN B-2) 100 mg tabtopiramate (TOPAMAX) 25 mg tabletnaproxen (NAPROSYN) 500 mg tabletAdmission/Clinic Administered Medications as of 02/18/18:lidocaine 10 mg/mL (1 %) 1-2 mg injection (XYLOCAINE)lactated ringers infusionceFAZolin iv piggyback 2 g in D5W (iso-osmotic) 100 mL (ANCEF)scopolamine 1 mg over 3 days 1 Patch (TRANSDERM-SCOP)scopolamine - VERIFY patchscopolamine - REMOVE PATCHProblem List:Allergic rhinitis due to fungal spores [J30.89]Obesity, unspecified [E66.9]Obstructive sleep apnea (adult) (pediatric) [G47.33]Toxic effect of venom [T63.91XA]Moderate persistent asthma [J45.40]Allergic rhinitis due to dust mite [J30.89]Allergic rhinitis due to cat hair [J30.81]Seasonal allergic rhinitis due to pollen [J30.1]Right ureteral calculus [N20.1]Allergies:Environmental Allergies [Other]Ijuno-YxynPrkxt-Sawcmr HornetVenom-Yellow Jacket ProteinDate Verified: 02/18/18Lab ValuesNo results within the last 30 days for the following basenames: K,HCTProgress Notes ([facility] 1):Elgin Reid 02/14/2018 4:43 PM SignedUrology ClinicMarch 2017Chief Complaint: kidney stoneHPI: This is a 42 year old female who presents to the clinic today for kidneystone.Complains of right flank pain since 6 days ago. She is currently on Flomax,Cipro, and Toradol.ROS:All systems reviewed and otherwise negative, except as noted in the HPI.History:PAST MEDICAL HISTORYDiagnosis Date- Allergic rhinitis, cause unspecified Allergy, airborne subst- Bee allergy status- Environmental allergies- Hypercholesteremia 11/2014- Impaired fasting glucose- Migraines- Unspecified asthma(493.90) weather, allergy and exercise triggersPAST SURGICAL HISTORYProcedure Laterality Date- DELIVERY ONLY 2001 , low cervical- LIGATE FALLOPIAN TUBE 2001 Tubal ligationFamily HistoryProblem Relation Age of Onset- Asthma Mother- Thyroid Mother- depression [OTHER] Mother- depression [OTHER] Sister- Asthma Brother- unknown [OTHER] Father- depression [OTHER] BrotherSocial History Marital status: Spouse name: Years of education: Number of children: 2Occupational HistoryOccupation Employer Comment[facility] HEALTHSocial History Main Topics Smoking status: Passive Smoke Exposure - Never Smoker Packs/day: 0.00 Years: 0.00 Smokeless status: Never Used Comment: smokes outside Alcohol use: No Drug use: NoALLERGIESAllergen Reactions- Environmental Aller* Grasses, molds, dust mites, cats, cockroaches- Venom-Wasp- Venom-Yellow Hornet Unknown Yellow and white faced hornet- Venom-Yellow Jacket*Current Outpatient Prescriptions on File Prior to Visit:FLUoxetine HCl (PROZAC) 40 mg capsule Take 20mg once daily.tamsulosin ER (FLOMAX) 0.4 mg cp24 Take 1 capsule by mouth daily at bedtime for14 days.traMADol (ULTRAM) 50 mg tablet Take 1 tablet by mouth every 6 hours as neededfor up to 7 days.ciprofloxacin HCl (CIPRO) 500 mg tablet Take 1 tablet by mouth twice daily for10 days.fluticasone-salmeterol (ADVAIR DISKUS) 250-50 mcg/dose dsdv One inhalation twicea day. Rinse mouth out after use.EPINEPHrine (EPIPEN) 0.3 mg/0.3 mL auto-injector Inject 0.3 mL intramuscularlyas needed (for allergic reaction.Seek emergent medical care immediately afteruse.Disp:one 2-pack w/education trainer).ketotifen fumarate (ZADITOR) 0.025 % (0.035 %) ophthalmic solution One drop toeach eye 2 to 3 times a day as needed.fluticasone (FLONASE) 50 mcg/actuation nasal spray Use 1-2 Sprays in eachnostril once daily.albuterol HFA (VENTOLIN HFA) 90 mcg/actuation inhaler Inhale 2 Puffs asinstructed every 4 hours as needed.cetirizine (ZYRTEC) 10 mg tablet Take 1 tablet by mouth once daily as needed.rizatriptan (MAXALT) 10 mg tablet Take 1 tablet by mouth as needed for MigraineHeadache (see administration instructions). May repeat in 2 hours if neededbusPIRone (BUSPAR) 5 mg tablet Take 1 tablet by mouth three times daily asneeded (anxiety attack).Omeprazole 40 mg capsule Take 1 capsule by mouth once daily.amitriptyline (ELAVIL) 25 mg tabletMagnesium 250 mg tab Take 1 tablet by mouth once daily.riboflavin, vitamin B2, (VITAMIN B-2) 100 mg tab Take 4 tablets by mouth oncedaily.topiramate (TOPAMAX) 25 mg tablet Take 1 tablet by mouth as directed. Take 1tablet PO daily at bedtime x 2 weeks then increase to 2 tablets PO at bedtimenaproxen (NAPROSYN) 500 mg tablet Take 1 tablet by mouth twice daily as needed.No current facility-administered medications on file prior to visit.PHYSICAL EXAMINATION:GENERAL: Alert, Awake, Well developed, well nourished,healthy appearingHEENT: PERRLA. EOMI. MMM.RESP: NL effort, no retractions or purse-lip breathing.CV: No extremity swelling, varices, edema, pallor, erythemaABDOMEN: Soft, nontender, nondistended, no masses.HERNIAS: NoneSKIN/LYMPH: No rash, lesions.NEURO: Alert and oriented x3. Normal Speech.PSYCH: No signs of depression, anxiety, or agitation.EXTREMITIES: Extremities normal. No deformities, edema, clubbing or skindiscoloration. FROM.Results:UA: 15 ketone, small blood, 1+ protein, small leukocyteCT scan 02/12/2018:6mm distal right ureteral calculus with mild right hydronephrosis. ?Fullness of the right renal pelvis is also felt to be from parapelviccysts.Assessment and Plan:This is a 42 year old female who presents to the office today for kidney stones.UA 15 ketone, small blood, 1+ protein, small leukocyte. Schedule cystoureteroscopy laser for the stone. Patient will call for follow up.Scribe Attestation:By signing my name below, IElgin, attest that this documentation hasbeen prepared under the direction and in the presence of Dr. Nery Canela MD.Electronically Signed:hugo Tee, February 14, 2018 4:11 PMProvider Attestation:Nery Fischer, personally performed the services described in thisdocumentation. All medical record entries made by the jeramyibe were at mydirection and in my presence. I have reviewed the chart and dischargeinstructions (if applicable) and agree that the record reflects my personalperformance and is accurate and complete. Dr. Nery Canela MD February 14, 20184:11 PMProgress Notes ([facility]):She Dowling CAORL 02/13/2018 8:51 AM SignedPatient calls in with update on kidney stone. States that this morning she hadepisodes of severe pain with N/V. This is new from when she was in the officeyesterday. Reports that everything else is the same. Appt with urology isscheduled for 02/14/18.Ra Galvez DO 02/13/2018 9:40 AM SignedNoted, agree with Urologist apptJordestefani Galvez DO Vital Signs Vital Sign Description Value / Unit Date Location The following section is limited to 5 en tries per type and includes entries from the following time range: 20200714 - 20200620 6. Body weight 111.58 kg 07-14-2020 [facility] ([id number]) Encounters Date Type Reason Provider Location 02-26-2018 - Amb[facility] 02-27-2018 GABRIEL S LURIA ([id number]) 02-18-2018 - Ambulatory [facility] 03-20-2018 GABRIEL S LURIA ([id number]) 07-31-2018 - Emergency department [facility] Fa cility:B 07-31-2018 patient visit RA GALVEZ 07-19-2018 - Emergency department [facility] Facility:B 07-19-2018 patient visit Ignacio GALVEZ 04-18-2018 - Emergency department [facility] Facility:B 04-19-2018 patient visit P LENNY 07-17-2020 Follow-up encounter Ra Galvez [facility] [place] Comment: RE: Visit Follow Up Question 07-07-2020 - 07-07-2020 Orders Only Ureteric stone Gabriel S Luria [facility] Comment: Right ureteral calculus (Miladis iain Dx) 08-13-2020 - 08-13-2020 Patient encounter Ra lynch [facility] procedure [place] Comment: RE: [facility]gent [facility] 08-10-2020 - 08-10-2020 Patient encounter procedure Sa nford S Cathyria [facility] Comment: RE: Urine Culture 08-04-2020 - Patient encounter [facility] 08-04-2020 procedure 07-27-2020 - Patient encounter [facility] 07-27-2020 procedure 07-20-2020 - Patient encounter History of [facility] Cat Scan 07-20-2020 procedure calculus of (I-Stat) kidney Comment: Radiology CT 07-17-2020 - Patient encounter Ra Chavez [facility] 07-17-2020 procedure Galvez 07-14-2020 - Patient encounter Patient encounter Ra Chavez [facility] Medicine 07-14-2020 procedure status Lenny Medina Comment: Encounter for hepatitis C sc reening test for low risk patient (Primary Dx); Screening for HIV (human imm unodeficiency virus); Vitamin D deficiency; Dyslipidemia; IFG (impaired fasting glucos e) 07-09-2020 - Patient encounter History of calculus [facility] S Luria [facility] 07-09-2020 procedure of kidney Comment: History of kidney stones (Pr imary Dx); Microscopic hematuria 07-07-2020 - Patient encounter [facility] S Luria [facility] 07-07-2020 procedure 07-02-2020 - Patient encounter History of Xr [facility] 07-02-2020 procedure calculus of kidney Mob Gabriel S Luria Comment: Radiology XR 06-28-2020 - Patient encounter New daily Mario (Traffic Officer) Family [facility] d[facility] 06-28-2020 procedure persistent Cecilia Carol headache Comment: RE: [facility]Urgent [facility] 06-26-2020 - 06-26-2020 Patient encounter procedure Sh eila A Block Allergy Comment: RE: [facility]gent [facility] 08-25-2020 - 08-25-2020 Refill Intertrigo Ra Galvez [facility] Carol Comment: Refill Request 07-27-2020 Results Only [facility] 07-02-2020 Results Only [facility] 07-20-2020 - Subsequent hospital [facility] 07-20-2020 visit by physician 07-02-2020 - Subsequent hospital [facility] 07-02-2020 visit by physician 07-14-2020 - Telemedicine Ra Villarrealrison [facility] 07-14-2020 consultation with patient 07-09-2020 - Telemedicine [facility] 07-09-2020 consultation with patient 08-10-2020 - Telephone encounter Ramirez Carrillo Block Allergy 08-10-2020 Comment: Immunotherapy 07-27-2020 - 07-27-2020 Telephone encounter Ramirez Carrillo Maite ain Allergy Comment: JAMISON epi pen Procedures Procedure Name Date Provider Location PERIOD & VOLUME 07-27-2020 [facility] ([id number]) Ct abdomen & pelvis w/o 07-20-2020 [facility] ([id number]) contrast material Bacteria identified Cx Nom 07-07-2020 [facility] ([id number]) (U) URINALYSIS, DIPSTICK ONLY 07-02-2020 [facility] ([id number]) Radiologic exam abdomen 1 07-02-2020 [facility] ([id number]) view Mammography 04-19-2020 - [facility] ([id number]) 04-19-2020 Plan of Treatment Plan Description Date Location DTAP,TDAP,TD (2 - Td) DTAP,TDAP,TD (2 - Td) 12-21-2025 - [facility] 12-21-2025 ([id number]) ANNUAL PCP TEAM ANNUAL PCP TEAM CHRONIC 07-14-2021 [facility] CHRONIC DISEASE VISIT DISEASE VISIT 07-14-2021 ([id number]) ANNUAL PCP TEAM ANNUAL PCP TEAM CHRONIC 06-24-2021 [facility] CHRONIC DISEASE VISIT DISEASE VISIT 06-24-2021 ([id number]) MAMMOGRAM MAMMOGRAM 04-19-2021 - [facility] 04-19-2021 ([id number]) HGB A1C HGB A1C Lab Routine IFG 01-14-2021 - [facility] (impaired fasting 07-14-2021 ([id number]) glucose) Expected: 01/14/2021 (Approximate), Expires: 07/14/2021 Comment: Expected: 01/14/2021 (Approx imate), Expires: 07/14/2021 HPV TESTING HPV TESTING 12-21-2020 - [facility] 12-21-2020 ([id number]) PAP TESTING PAP TESTING 12-21-2020 - [facility] 12-21-2020 ([id number]) INFLUENZA (#1) INFLUENZA (#1) 2020 - [facility] 07-20-2020 ([id number]) HEPATITIS C SCREENING HEPATITIS C SCREENING 1993 - [facility] 1993 ([id number]) HIV SCREENING HIV SCREENING 1993 - [facility] 1993 ([id number]) URINE CULTURE URINE CULTURE [facility] Microbiology Routine (31208) Right ureteral calculus 07/07/2020 2:38 PM EDT CALCIUM TOTAL BLD CALCIUM TOTAL BLD Lab 07-09-2021 [facility] Routine History of (52553) kidney stones Microscopic hematuria 1 Occurrences starting 07/09/2020 until 07/09/2021 Comment: 1 Occurrences starting 07/09 until 07/09/2021 CBC + DIFF CBC + DIFF Lab Routine IFG (impaired 07-14-2021 [facility] ([id number]) fasting glucose) 1 Occurrences starting 07/14/2020 until 07/14/2021 Comment: 1 Occurrences starting 07/14 until 07/14/2021 COMP METABOLIC PANEL COMP METABOLIC PANEL Lab 07-14-2021 [facility] ([id number]) Routine IFG (impaired fasting glucose) 1 Occurrences starting 07/14/2020 until 07/14/2021 Comment: 1 Occurrences starting 07/14 until 07/14/2021 CT FLANK WO IVCON CT FLANK WO IVCON Radiology 08-08-2021 [facility] ([id number]) Routine History of kidney stones Microscopic hematuria 1 Occurrences starting 07/09/2020 until 08/08/2021 Comment: 1 Occurrences starting 07/09 until 08/08/2021 HEP C AB IA BLOOD HEP C AB IA BLOOD Lab Routine 07-14-2021 [facility] ([id number]) Encounter for hepatitis C screening test for low risk patient 1 Occurrences starting 07/14/2020 until 07/14/2021 Comment: 1 Occurrences starting 07/14 until 07/14/2021 HIV 1 2 COMBO(AG/AB),WITH HIV 1 2 COMBO(AG/AB),WITH 07-14-2021 [facility] REFLEX TO DIFFERENTIATION REFLEX TO DIFFERENTIATION ([id number]) Lab Routine Screening for HIV (human immunodeficiency virus) 1 Occurrences starting 07/14/2020 until 07/14/2021 Comment: 1 Occurrences starting 07/14 until 07/14/2021 LIPID PANEL BASIC LIPID PANEL BASIC Lab Routine 07-14-2021 [facility] ([id number]) Dyslipidemia 1 Occurrences starting 07/14/2020 until 07/14/2021 Comment: 1 Occurrences starting 07/14 until 07/14/2021 PTH INTACT BLD PTH INTACT BLD Lab Routine History 07-09-2021 [facility] ([id number]) of kidney stones Microscopic hematuria 1 Occurrences starting 07/09/2020 until 07/09/2021 Comment: 1 Occurrences starting 07/09 until 07/09/2021 XR ABDOMEN 1V SUPINE XR ABDOMEN 1V SUPINE [facility] ([id number]) Radiology Routine History of kidney stones 07/02/2020 10:52 AM EDT STONE PANEL URINE STONE PANEL URINE Lab 07-09-2021 [facility] ([id number]) Routine History of kidney stones Microscopic hematuria 1 Occurrences starting 07/09/2020 until 07/09/2021 Comment: 1 Occurrences starting 07/09 until 07/09/2021 URIC ACID BLOOD URIC ACID BLOOD Lab Routine 07-09-2021 [facility] ([id number]) History of kidney stones Microscopic hematuria 1 Occurrences starting 07/09/2020 until 07/09/2021 Comment: 1 Occurrences starting 07/09 until 07/09/2021 URINALYSIS, DIPSTICK ONLY URINALYSIS, DIPSTICK ONLY Lab [facility] ([id number]) Routine 07/02/2020 11:00 PM EDT no information [facility] ([id number]) no information [facility] ([id number]) Immunizations Vaccine Notes Status Date Location Influenza Vaccine, influenza virus (completed) 09-07-2011 - [facility] Split-Non Spec vaccine, unspecified 09-07-2011 (4419 5) formulation Influenza Vaccine, influenza virus (completed) 08-23-2010 - [facility] Split-Non Spec vaccine, unspecified 08-23-2010 (4419 5) formulation Influenza Vaccine, influenza virus (completed) 08-24-2009 - [facility] Split-Non Spec vaccine, unspecified 08-24-2009 (4419 5) formulation Influenza Vaccine, influenza virus (completed) 09-01-2008 - [facility] Split-Non Spec vaccine, unspecified 09-01-2008 (4419 5) formulation Influenza Vaccine, influenza virus (completed) 12-05-2007 - [facility] Split-Non Spec vaccine, unspecified 12-05-2007 (4419 5) formulation Influenza Seasonal influenza, injectable, (completed) 08-07-2019 - [facility] Inj Quadrivalent Age quadrivalent, contains 08-07-2019 (21181) 3+ preservative Influenza Seasonal influenza, injectable, (completed) 07-11-2018 - [facility] Inj Quadrivalent Age quadrivalent, contains 07-11-2018 (82753) 3+ preservative Influenza Seasonal influenza, injectable, (completed) 07-26-2017 - [facility] Inj Quadrivalent Age quadrivalent, contains 07-26-2017 (03740) 3+ preservative Influenza Seasonal influenza, injectable, (completed) 10-10-2016 - [facility] Inj Quadrivalent Age quadrivalent, contains 10-10-2016 (20611) 3+ preservative Influenza Seasonal influenza, injectable, (completed) 12-21-2015 - [facility] Inj Quadrivalent Age quadrivalent, contains 12-21-2015 (38819) 3+ preservative Influenza Seasonal influenza, seasonal, (completed) 08-13-2020 - [facility] Inj Age 3+ injectable 08-13-2020 (39232) Influenza influenza, seasonal, (completed) 12-21-2015 - [facility] injectable 12-21-2015 (96182) Influenza Seasonal influenza, seasonal, (completed) 09-28-2014 - [facility] Inj Age 3+ injectable 09-28-2014 (90981) Pneumovax pneumococcal (completed) 11-28-2010 - [facility] polysaccharide vaccine, 11-28-2010 (441 95) 23 valent Tdap (Age 7+) tetanus toxoid, reduced (completed) 12-21-2015 - [facility] diphtheria toxoid, and 12-21-2015 (4419 5) acellular pertussis vaccine, adsorbed Payers Payer Name Policy Number Location [employer] [employer] [id number] [facility] (44 195) [employer] [id number] [facility] ([place]) ([id number]) The following information is from the original human readable contentNo Payer Records FoundNo Payer Records FoundNo Payer Records Found Social History Type Social History Date Location Description Tobacco use and exposure Never used 06-24-2020 - [facility] 06-24-2020 ([id number]) History SDOH Social 2 01-12-2020 - [facility] Phone 06-22-2020 ([id number]) Alcohol intake Current non-drinker of 06-24-2020 [facility] alcohol (finding) 06-24-2020 ([id number]) History SDOH Alcohol 1 01-12-2020 - [facility] Frequency 06-22-2020 ([id number]) History SDOH Alcohol Std 98 [facility] (84703) Tobacco smoking status Never smoker 06-24-2020 - [facility] NHIS 06-24-2020 (06533) History SDOH Social 8 01-12-2020 - [facility] 01-12-2020 ([id number]) History SDOH Education 12 01-12-2020 - [facility] 01-12-2020 ([id number]) History SDOH Financial 4 06-22-2020 - [facility] 06-22-2020 (22762) Sex Assigned At Female [facility] ([id number]) Exposure to SARS-CoV-2 Not sure [facility] (event) (11034) The following information is from the original human readable contentNo Social History Records FoundNo Social History Records FoundNo Social History Records FoundNo Social History Records FoundNo Social History Records Found Medical Equipment Equipment Code (if Equipment Original Equipment Procedure Code ( if Dates provided) Text (if provided) Identifier (if provided) provided) [id number] [id number] 02-18-2018 [facility] - [id number] History of Past Illness Problem Noted Date Resolved Date Nonspecific paroxysmal spell 08/14/2018 09/24/2018 Transient alteration of awareness 08/14/20182017 Concern about neurological disease without diagnosis 018 09/24/2018 Toxic effect of venom 09/23/2007 11/28/2018 ASTHMA UNSPECIFIED 11/02/2014 Problem Noted Date Resolved Date Nonspecific paroxysmal spell 08/14/2018 09/24/2018 Transient alteration of awareness 08/14/20182017 Concern about neurological disease without diagnosis 018 09/24/2018 Toxic effect of venom 09/23/2007 11/28/2018 ASTHMA UNSPECIFIED 11/02/2014 Problem Noted Date Resolved Date Nonspecific paroxysmal spell 08/14/2018 09/24/2018 Transient alteration of awareness 08/14/20182017 Concern about neurological disease without diagnosis 2 018 09/24/2018 Toxic effect of venom 09/23/2007 11/28/2018 ASTHMA UNSPECIFIED 11/02/2014 Problem Noted Date Resolved Date Nonspecific paroxysmal spell 08/14/2018 09/24/2018 Transient alteration of awareness 08/14/20182017 Concern about neurological disease without diagnosis 08/14/2 018 09/24/2018 Toxic effect of venom 09/23/2007 11/28/2018 ASTHMA UNSPECIFIED 11/02/2014 Problem Noted Date Resolved Date Nonspecific paroxysmal spell 08/14/2018 09/24/2018 Transient alteration of awareness 08/14/20182017 Concern about neurological disease without diagnosis 2 018 09/24/2018 Toxic effect of venom 09/23/2007 11/28/2018 ASTHMA UNSPECIFIED 11/02/2014 Problem Noted Date Resolved Date Nonspecific paroxysmal spell 08/14/2018 09/24/2018 Transient alteration of awareness 08/14/20182017 Concern about neurological disease without diagnosis 2 018 09/24/2018 Toxic effect of venom 09/23/2007 11/28/2018 ASTHMA UNSPECIFIED 11/02/2014 Problem Noted Date Resolved Date Nonspecific paroxysmal spell 08/14/2018 09/24/2018 Transient alteration of awareness 08/14/20182017 Concern about neurological disease without diagnosis 2 018 09/24/2018 Toxic effect of venom 09/23/2007 11/28/2018 ASTHMA UNSPECIFIED 11/02/2014 Problem Noted Date Resolved Date Nonspecific paroxysmal spell 08/14/2018 09/24/2018 Transient alteration of awareness 08/14/20182017 Concern about neurological disease without diagnosis 2 018 09/24/2018 Toxic effect of venom 09/23/2007 11/28/2018 ASTHMA UNSPECIFIED 11/02/2014 History of Present Illness Ra Galvez - 07/14/2020 11:00 AM EDT In lieu of an in person visit due to coronavirus COVID 19 pandemic concerns, a virtual visit was performed with patient. Patient is aware that I am not fully able to assess symptoms and do a full physical exam including vital signs in office at this time. Patient consents to the visit. This Team Access Model visit is a virtual encounter. It required patient- provider interaction for the medical decision making as documented below. VIRTUAL VISIT PROGRESS NOTE This is a virtual visit using HIPAA compliant video platform. It required patient-provider interaction for the medical decision making as documented below. Bhavesh Beaulieu is a 44 year old female seen for follow up IFG, diet controlled, doing well overall, trying to cut back sugars and carbohydrates Mood disorder, managed by Psychiatrist. Taking her medications as prescribed In process of work up for ? Right kidney stone, no current hematuria or flank pain that she is awareof, seeing Urologist and has upcoming CT flank and urine and blood work. HISTORY REVIEWED (electronic chart updated): PAST MEDICAL HISTORY Diagnosis Date ? Allergic rhinitis, cause unspecified Allergy, airborne subst ? Anxiety and depression ? Bee allergy status ? Depression ? Environmental allergies ? GERD (gastroesophageal reflux disease) ? Hypercholesteremia 11/2014 ? Impaired fasting glucose ? Migraines ? Morbid obesity (HCC) ? Obstructive sleep apnea DX 2006, not on CPAP since 06/2018 ? Unspecified asthma(493.90) weather, allergy and exercise triggers ? Vitamin D deficiency PAST SURGICAL HISTORY Procedure Laterality Date ? DELIVERY ONLY 2001 , low cervical ? LIGATE FALLOPIAN TUBE 2001 Tubal ligation ? LITHOTRIPSY [facility] Right 02/18/2018 ? STEREOTACTIC LOCALIZATION BREAST BIOPSY Right 05/26/2019 ? US GUIDED BREAST BIOPSY Left 05/2020 FAMILY HISTORY Problem Relation Age of Onset ? Asthma Mother ? Thyroid Mother ? COPD Mother ? other (depression) Mother ? other (depression) Sister ? Asthma Brother ? Depression Brother ? Diabetes Father ? Hypertension Father ? Diabetes Maternal Grandmother ? Thyroid Maternal Grandmother ? Cancer Maternal Grandfather unknown ? Kidney Disease Paternal Grandmother ? Cancer Paternal Grandfather ? Asthma Daughter ? Depression Daughter ? Depression Daughter ? other (ADD) Daughter Social History Tobacco Use ? Smoking status: Never Smoker ? Smokeless tobacco: Never Used Substance Use Topics ? Alcohol use: No Frequency: Never Drinks per session: Patient refused Binge frequency: Never ? Drug use: No Current Outpatient Medications Medication Sig ? lamoTRIgine (LAMICTAL) 25 mg tablet Take 1 tablet by mouth once daily. ? rizatriptan (MAXALT) 10 mg tablet Take 1 tablet by mouth as needed for Migraine Headache (see administration instructions). May repeat in 2 hours if needed ? gabapentin (NEURONTIN) 100 mg capsule Take 1 capsule by mouth three times daily for 98 days. ? amitriptyline (ELAVIL) 50 mg tablet Take 0.5 tablets by mouth daily at bedtime. ? topiramate (TOPAMAX) 50 mg tablet Take 50 mg by mouth twice daily. ? ziprasidone (GEODON) 40 mg capsule Take 40 mg by mouth daily with dinner. ? vitamin b complex (B COMPLETE) tab Take 1 tablet by mouth once daily. ? clotrimazole (LOTRIMIN, CLOTRIM) 1 % cream Apply to affected area twice daily. As needed for yeastinfection ? cholecalciferol (VITAMIN D3) 50 mcg (2,000 unit) tablet Take 1 tablet by mouth once daily. ? guaiFENesin (MUCINEX) 600 mg 12 hr tablet Take 2 tablets by mouth twice daily as needed. ? syunodb-gdofhxxtf-jahfmyw D3 (CALCIUM 500+D) 500 mg(1,250mg) -200 unit per tablet Take 1 tablet bymouth twice daily with meals. ? PRODIGEN 31 billion cell cap Take 1 capsule by mouth daily at bedtime. ? albuterol HFA (VENTOLIN HFA) 90 mcg/actuation inhaler Inhale 2 Puffs as instructed every 4 hours as needed. ? EPINEPHrine (EPIPEN) 0.3 mg/0.3 mL auto-injector Inject 0.3 mL intramuscularly as needed (for allergic reaction.Seek emergent medical care immediately after use.Disp:one 2-pack w/education trainer). ? cetirizine (ZYRTEC) 10 mg tablet Take 1 tablet by mouth once daily as needed. ? OYSCO-500 500 mg calcium (1,250 mg) tablet Take 1 tablet by mouth twice daily with meals. ? Magnesium Oxide 500 mg tab Take 1 tablet by mouth once daily. ? nystatin (MYCOSTATIN) powder Apply 1 application to affected area four times daily. As needed for yeast rash ? fluticasone-salmeterol HFA (ADVAIR HFA) 115-21 mcg/actuation inhaler Inhale 2 Puffs as instructed twice daily. Use with spacer. Rinse mouth out after use. ? meloxicam (MOBIC) 15 mg tablet Take 0.5-1 tablets by mouth once daily. As needed for pain, Take with food. (Patient not taking: Reported on 06/24/2020 ) ? [place] Resfrt-Ydbsvy-Lxjv Oxide (GOLD SOLANO MEDICATED BABY) 79-4-15 % powd Apply 1 application to affected area twice daily as needed (intertrigo). (Patient taking differently: Apply 1 application to affected area twice daily as needed (intertrigo). Not medicated ) ? cyclobenzaprine (FLEXERIL) 10 mg tablet Take 1 tablet by mouth three times daily as needed for Muscle Spasm. (Patient not taking: Reported on 06/24/2020 ) ? albuterol (PROVENTIL) 2.5 mg /3 mL (0.083 %) nebulizer solution Use 3 mL via nebulizer every 4 hours as needed for Wheezing/Shortness of Breath. 1 vial contains 3 ml. ? amphetamine-dextroamphetamine XR (ADDERALL XR) 20 mg 24 hr capsule Take 20 mg by mouth once daily. ? famotidine (PEPCID) 20 mg tablet Take 1 tablet by mouth twice daily. ? B-complex with vitamin C (ALLBEE WITH C) tablet Take 1 tablet by mouth once daily. ? L. rhamnosus-L. reuteri (REPHRESH PRO-B) 2.5 billion cell cap Take 1 capsule by mouth daily at bedtime. ? LORazepam (ATIVAN) 0.5 mg tab Take by mouth at bedtime as needed. ? triamcinolone acetonide (NASACORT AQ) 55 mcg nasal inhaler Use 2 Sprays in each nostril every morning. ? azelastine (ASTELIN,ASTEPRO) 0.1% nasal spray Use 2 Sprays in each nostril daily at bedtime. (Patient not taking: Reported on 06/24/2020 ) ? ketotifen fumarate (ZADITOR) 0.025 % (0.035 %) ophthalmic solution One drop to each eye 2 to 3 times a day as needed. No current facility-administered medications for this visit. ALLERGIES Allergen Reactions ? Beta Blockers [Beta* Contraindication-Medical Surgical Avoid use of beta blockers and KERRIE inhibitors since patient is on venom immunotherapy ? Kerrie Inhibitors Contraindication-Medical Surgical Avoid use of beta blockers and KERRIE inhibitors since patient is on venom immunotherapy ? Environmental Aller* Grasses, molds, dust mites, cats, cockroaches ? Lexapro [Escitalopr* Intolerance altered mood ? Prozac [Fluoxetine * Intolerance altered mood ? Trintellix [Vortiox* Mental Status Change ? Venom-Wasp ? Venom-Yellow Hornet Unknown Yellow and white faced hornet ? Venom-Yellow Jacket* ? Viibryd [Vilazodone] Mental Status Change agitated ? Wellbutrin [Bupropi* Rash Agitation ? Zoloft [Sertraline * Intolerance altered mood REVIEW OF SYSTEMS: As noted in HPI PHYSICAL EXAMINATION: VIDEO EXAM: (if completed, performed via video enabled technology) GENERAL: alert and appropriate, in no distress and well-hydrated, well nourished Obese, appears disheveled. ASSESSMENT: (Z11.59) Encounter for hepatitis C screening test for low risk patient (primary encounter diagnosis) (Z11.4) Screening for HIV (human immunodeficiency virus) (E55.9) Vitamin D deficiency (E78.5) Dyslipidemia (R73.01) IFG (impaired fasting glucose) PLAN: See above, need for follow up with Urologist, she desires to have Hep C and HIV screening. There are no Patient Instructions on file for this visit. I spent more than 20 minutes iluf-go-lred with the patient and over half the time was devoted to counseling and/or coordination of care. Ra Galvez DO documented in this encounterJerri Carvajal Tech (Rt) - 07/02/2020 10:45 AM EDT Radiology Service Progress Note PATIENT NAME: Bhavesh Beaulieu DATE OF SERVICE: July 02, 2020 TIME: 10:45 AM PATIENT IDENTITY VERIFICATION COMPLETED USING TWO (2) IDENTIFIERS: Name and Date of confirmed by patient verbally. FALL SCREENING: Has the patient had 2 falls in the last year or 1 fall with injury or currently using an Ambulatory Assistive Device (Walker, Cane, Wheelchair, Crutches, etc.)? No PATIENT GENDER DATA: Female. status: : No status: NO. PATIENT RELEVANT IMPLANT DATA REVIEWED: Not Applicable RADIOLOGY DEPARTMENT: General X-ray: Exam(s) Completed: Abdomen X-Ray Abdomen PERIPHERAL IV DATA: Not applicable SIGNED BY: RT Clementina July 02, 2020 10:45 AM documented in this encounterNery Canela - 07/07/2020 12:00 AM EDT [facility] NOTE DEPARTMENT OF UROLOGY [place] NAME: BHAVESH BEAULIEU [facility] NO.: [id number] DATE OF SERVICE: 07/07/2020 TELEPHONE VISIT Telephone call concerning the x-ray that just showed a questionable 5 mm stone in the kidney. Otherwise, she is doing satisfactorily. Will follow up with me in the office. DICTATED BY: Judah Anne/Rosalee JOB# [id number] signed by Nery Canela at 07/08/2020 5:15 PM EDT documented in this encounterNery Canela - 07/09/2020 4:10 PM EDTVIRTUAL VISIT PROGRESS NOTE 07/09/2020 Patient has consented to this virtual encounter, not originating from a related Evaluation & Management service provided within the previous 7 days. NOTE: Cannot be used if an Evaluation & Management service or procedure is planned within the next 24 hours. Persons Present: patient Chief Complaint/Reason: kidney stones HPI: Bhavesh Beaulieu is a 44 year old female. She reports that she is doing well. Denies any stone related pain and gross hematuria. She denies any dysuria, hematuria, nocturia, urgency, urinary incontinence, usage of pads, abnormal urinary stream, postvoid dribbling, hesitancy, or modifying urologic factors. Labs: N/a Imaging: KUB from 07/02/2020 IMPRESSION: Possible 5 mm right renal calculus versus enteric contents. ?Consider further evaluation with renal ultrasound as clinically indicated. Assessment and Plan: This is a 44 year old female who presents to the office today for the above complaints. Patient has had no troubles with stones. Recent KUB demonstrates possible right renal calculus. Plan for a CT flank to determine if stone is there. Also plan for stone workup to assess etiology of stone formation. Follow up once results of studies are in or sooner if she develops any concerning or worsening symptoms. All questions were answered satisfactorily for the patient. Total Time Spent: 21-30 minutes ATTESTATION: By signing my name below, I, Marcus Gaston, attest that this documentation has been prepared under the direction and in the presence of Nery Canela MD. Electronically Signed:hugo Higgins, July 09, 2020 4:10 PM Provider Attestation: I, Dr. Nery Canela MD, personally performed the services described in this documentation. All medical record entries made by the jeramyibe were at my direction and in my presence. I have reviewed the chart and discharge instructions (if applicable) and agree that the record reflects my personal performance and is accurate and complete. Dr. Nery Canela MD. July 09, 2020 4:43 PM documented in this encounterBre Hein Tech (Tech) - 07/20/2020 2:00 PM EDT Radiology Service Progress Note PATIENT NAME: Bhavesh Beaulieu DATE OF SERVICE: July 20, 2020 TIME: 2:01 PM PATIENT IDENTITY VERIFICATION COMPLETED USING TWO (2) IDENTIFIERS: Name and Date of confirmed by patient verbally. FALL SCREENING: Has the patient had 2 falls in the last year or 1 fall with injury or currently using an Ambulatory Assistive Device (Walker, Cane, Wheelchair, Crutches, etc.)? No PATIENT GENDER DATA: Female. status: : No status: NO. PATIENT RELEVANT IMPLANT DATA REVIEWED: Not Applicable RADIOLOGY DEPARTMENT: CT; Exam(s) Completed: Abdomen/Pelvis PERIPHERAL IV DATA: Not applicable SIGNED BY: Derrell Sultana July 20, 2020 2:01 PM documented in this encounter Assessments Diagnosis Encounter for hepatitis C screening test for low risk patient - Primary Screening for HIV (human immunodeficienc y virus) Special screening examination for other specified viral diseases Vitamin D deficiency Unspecified vitamin D deficiency Dyslipidemia Other and unspecified hyperlipidemia IFG (impaired fasting glucose) Impaired fasting glucose Diagnosis New daily persistent headache Diagnosis History of kidney stones Personal history of urinary calculi Diagnosis Right ureteral calculus - Primary Calculus of ureter Diagnosis History of kidney stones - Primary Personal history of urinary calculi Microscopic hematuria Diagnosis History of kidney stones Personal history of urinary calculi Microscopic hematuria Diagnosis Intertrigo Other specified erythematous condition Advance Directives No Advanced Directives Records Found Documents on File Type Date Recorded Patient 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 Specialist Explanati on Advance Directive(s) 09/23/2018 8:07 PM Documents on File Type Date Recorded Patient 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 Specialist Explanati on Advance Directive(s) 09/23/2018 8:07 PM Summary Purpose Family History No Family History Records FoundNo Family History Records FoundNo Family History Records Found Reason for Referral Status Reason Specialty Diagnoses / Referred By Referred To Procedures Contact Contact Pending Review Auto-Generated CT IMAGING Diagnoses History of kidney stones Microscopic hematuria Nery Canela Ct Imaging Referral Procedures CT FLANK WO IVCON CT ABD & PELVIS W/O CONTRAST S [address] [place] [address] Additional Source Comments FOR RECORDS PERTAINING TO PATIENTS WHO ARE OR HAVE BEEN ENROLLED IN A CHEMICAL DEPENDENCY/SUBSTANCE ABUSE PROGRAM, SOME INFORMATION MAY BE OMITTED. This clinical summary was aggregated from multiple sources. Caution should be exercised in using it in the provision of clinical care. This summary normalizes information from multiple sources, and as a consequence, information in this document may materially changethe coding, format and clinical context of patient data. In addition, data may be omittedin some cases. CLINICAL DECISIONS SHOULD BE BASED ON THE PRIMARY CLINICAL RECORDS. [employer] [facility] provides no warranty or guarantee of the accuracy or completeness of information in this document. UNRECOGNIZED CONTENT PROVIDED BELOW FOR UNRECOGNIZED SECTION Source Comments In the event this information is protected by the Federal Confidentiality of Alcohol and Drug Abuse Patient Records regulations: The Federal rules restrict any use of the information to criminally investigate or prosecute any alcohol or drug abuse patient.[facility] HospitalIn the event this information is protected by the Federal Confidentiality of Alcohol and Drug Abuse Patient Records regulations: The Federal rules restrict any use of the information to criminally investigate or prosecute any alcohol or drug abuse patient.[facility] HospitalIn the event this information is protected by the Federal Confidentiality of Alcohol and Drug Abuse Patient Records regulations: The Federal rules restrict any use of the information to criminally investigate or prosecute any alcohol or drug abuse patient.[facility] HospitalIn the event this information is protected by the Federal Confidentiality of Alcohol and Drug Abuse Patient Records regulations: The Federal rules restrict any use of the information to criminally investigate or prosecute any alcohol or drug abuse patient.[facility] HospitalIn the event this information is protected by the Federal Confidentiality of Alcohol and Drug Abuse Patient Records regulations: The Federal rules restrict any use of the information to criminally investigate or prosecute any alcohol or drug abuse patient.[facility] HospitalIn the event this information is protected by the Federal Confidentiality of Alcohol and Drug Abuse Patient Records regulations: The Federal rules restrict any use of the information to criminally investigate or prosecute any alcohol or drug abuse patient.[facility] HospitalIn the event this information is protected by the Federal Confidentiality of Alcohol and Drug Abuse Patient Records regulations: The Federal rules restrict any use of the information to criminally investigate or prosecute any alcohol or drug abuse patient.[facility] HospitalIn the event this information is protected by the Federal Confidentiality of Alcohol and Drug Abuse Patient Records regulations: The Federal rules restrict any use of the information to criminally investigate or prosecute any alcohol or drug abuse patient.[facility] HospitalIn the event this information is protected by the Federal Confidentiality of Alcohol and Drug Abuse Patient Records regulations: The Federal rules restrict any use of the information to criminally investigate or prosecute any alcohol or drug abuse patient.[facility] HospitalIn the event this information is protected by the Federal Confidentiality of Alcohol and Drug Abuse Patient Records regulations: The Federal rules restrict any use of the information to criminally investigate or prosecute any alcohol or drug abuse patient.[facility] HospitalIn the event this information is protected by the Federal Confidentiality of Alcohol and Drug Abuse Patient Records regulations: The Federal rules restrict any use of the information to criminally investigate or prosecute any alcohol or drug abuse patient.[facility] HospitalIn the event this information is protected by the Federal Confidentiality of Alcohol and Drug Abuse Patient Records regulations: The Federal rules restrict any use of the information to criminally investigate or prosecute any alcohol or drug abuse patient.[facility] HospitalIn the event this information is protected by the Federal Confidentiality of Alcohol and Drug Abuse Patient Records regulations: The Federal rules restrict any use of the information to criminally investigate or prosecute any alcohol or drug abuse patient.[facility] HospitalIn the event this information is protected by the Federal Confidentiality of Alcohol and Drug Abuse Patient Records regulations: The Federal rules restrict any use of the information to criminally investigate or prosecute any alcohol or drug abuse patient.[facility] HospitalIn the event this information is protected by the Federal Confidentiality of Alcohol and Drug Abuse Patient Records regulations: The Federal rules restrict any use of the information to criminally investigate or prosecute any alcohol or drug abuse patient.[facility] HospitalIn the event this information is protected by the Federal Confidentiality of Alcohol and Drug Abuse Patient Records regulations: The Federal rules restrict any use of the information to criminally investigate or prosecute any alcohol or drug abuse patient.[facility] HospitalIn the event this information is protected by the Federal Confidentiality of Alcohol and Drug Abuse Patient Records regulations: The Federal rules restrict any use of the information to criminally investigate or prosecute any alcohol or drug abuse patient.[facility] HospitalIn the event this information is protected by the Federal Confidentiality of Alcohol and Drug Abuse Patient Records regulations: The Federal rules restrict any use of the information to criminally investigate or prosecute any alcohol or drug abuse patient.[facility] HospitalIn the event this information is protected by the Federal Confidentiality of Alcohol and Drug Abuse Patient Records regulations: The Federal rules restrict any use of the information to criminally investigate or prosecute any alcohol or drug abuse patient.[facility] HospitalIn the event this information is protected by the Federal Confidentiality of Alcohol and Drug Abuse Patient Records regulations: The Federal rules restrict any use of the information to criminally investigate or prosecute any alcohol or drug abuse patient.[facility] UNRECOGNIZED CONTENT PROVIDED BELOW FOR UNRECOGNIZED SECTION Reason for Visit Reason Comments Follow Up Reason Comments Radiology XR Reason Comments Flank Pain Reason Comments Radiology CT Status Reason Specialty Diagnoses / Referred By Referred To Procedures Contact Contact Closed Auto-Generated CT IMAGING Diagnoses History of kidney stones Microscopic hematuria Nery Canela Ct Imaging Referral Procedures CT FLANK WO IVCON CT ABD & PELVIS W/O CONTRAST [address] [place] [address] Reason Onset Date Comments PA epi pen 07/27/2020 Reason Onset Date Comments Immunotherapy 08/10/2020 Reason Onset Date Comments Refill Request 08/25/2020 UNRECOGNIZED CONTENT PROVIDED BELOW FOR UNRECOGNIZED SECTION INFORMATION SOURCE DATE CREATED AUTHOR AUTHOR'S ORGANIZATIO N 05/09/2018 [facility] DATE CREATED AUTHOR AUTHOR'S ORGANIZATIO N 08/27/2018 [facility] [place] ([place]) DATE CREATED AUTHOR AUTHOR'S ORGANIZATIO N 08/27/2020 [facility] UNRECOGNIZED CONTENT PROVIDED BELOW FOR UNRECOGNIZED SECTION Miscellaneous Notes Telephone Encounter - Ashwini Chu RN - 06/29/2020 12:03 PM EDTCan a PSS please call patient to schedule 6 month f/u with Dr. Block in August? Thanks. documented in this encounterTelephone Encounter - Mario Starr) - 06/30/2020 2:13 PM EDT The following approved medication requests have been transmitted electronically. Signed Prescriptions Disp Refills rizatriptan (MAXALT) 10 mg tablet 12 tablet 3 Sig: Take 1 tablet by mouth as needed for Migraine Headache (see administration instructions). May repeat in 2 hours if needed EPI: No Mario Starr APRN.CNP Telephone Encounter - Mario Starr) - 06/30/2020 11:13 AM EDTOk to try the Maxalt, since nothing else seems to be working. Mario Starr APRN.CNP Telephone Encounter - Ra Galvez - 06/30/2020 11:07 AM EDTTo Anjelica Starr CNP to review Ra Galvez DO documented in this encounterTelephone Encounter - Mario Starr) - 07/19/2020 4:47 PM EDTOk to do PAP at this appointment, as long as it is 40 minutes in length. Also, we have ordered diabetes screening on her, the A1C, which has stayed in a low pre-diabetes range for over a year. Is she wanting something additional? I am not sure what her insurance is recommending. Mario Starr APRN.EVIDENCE SPECIALIST Telephone Encounter - Jasmyne Benavidez MA - 07/19/2020 1:51 PM EDTPt has physical scheduled on 01/14/21, ok to do PAP during appt? Please advise. Jasmyne Benavidez MA documented in this encounterTelephone Encounter - Ramirez Block - 07/27/2020 1:02 PM EDT The following approved medication requests have been transmitted electronically. Signed Prescriptions Disp Refills EPINEPHrine Base (SYMJEPI) 0.3 mg/0.3 mL syrg 2 Syringe 1 Sig: Use as directed for allergic reaction. Seek emergent medical care immediately after use. Authorizing Provider: RAMIREZ BLOCK MD elephone Encounter - Edna Tarango RN - 07/27/2020 12:12 PM EDTEpi pen rejected through [facility]. Patient needs Symjepi auto injector prescribed please. Please let pharmacy know to run for epi (furniture decals inspector [id number]) [facility]: [phone] for no prior auth requirements. documented in this encounterTelephone Encounter - Edna Tarango RN - 08/10/2020 9:23 AM EDTSpoke with patient. She no longer has a car so she has to postpone injections. Follow up appt scheduled for August and she will discuss it then. elephone Encounter - Ramirez Block - 08/10/2020 8:46 AM EDT[place] allergy nurses: Please contact patient. Due to the prolonged interval since her last set of injections, recommend backing up to the startingdose of mixed vespid 3 mcg/ml and wasp 1 mcg/ml. Does she want to proceed? If so, it may be best to build back up to the maintenance dose at at [facility]. From staff message from Alyssa Angel on 08/09/20 Patient had called earlier today to nurse triage to see if her vials had that I have on hand. ?I let them know I wouldn't know for sure until I am at [facility] on Sunday, however, it appears she would have been starting at the lowest dose of this vial. ?When I called her the end of May to let her know her vials were in [place], she declined to schedule. I am thinking if her vials are not , the concentration is likely still not appropriate. ?Lastinjection was 02/24 in [place]. It looks like she is scheduled for follow up with you in August.? elephone Encounter - Ramirez Block - 08/10/2020 8:46 AM EDT----- Message from Ramirez Block sent at 08/09/2020 2:45 PM EDT ----- ----- Message ----- From: Marie Angel LPN Sent: 08/09/2020 2:19 PM EDT To: Ashwini Chu RN, Ramirez Block, # Hey ladies, Patient had called earlier today to nurse triage to see if her vials had that I have on hand. I let them know I wouldn't know for sure until I am at [facility] on Sunday, however, it appears she would have been starting at the lowest dose of this vial. When I called her the end of May to let her know her vials were in [place], she declined to schedule. I am thinking if her vials are not , the concentration is likely still not appropriate. Last injection was 02/24 in [place]. It looks like she is scheduled for follow up with you in August. Let me know how you feel we should proceed! Thanks! Alyssa documented in this encounterTelephone Encounter - Mario Starr) - 08/26/2020 3:24 PM EDT The following approved medication requests have been transmitted electronically. Pending Prescriptions Disp Refills GOLD SOLANO MEDICATED BABY 79 %-4 %-15 % TOPICAL POWDER 1 Bottle 3 Sig: Apply 1 application to affected area twice daily as needed (intertrigo). EPI: No Mario Starr APRN.CNP Telephone Encounter - Fallon Blackwood Ma - 08/26/2020 9:09 AM EDT Patient has been identified by name and date of : Yes Pending Prescriptions Disp Refills GOLD SOLANO [employer] BABY 79 %-4 %-15 % TOPICAL POWDER 1 Bottle 3 Sig: Apply 1 application to affected area twice daily as needed (intertrigo). EPI: No RX INSTRUCTIONS: Patient aware RX will be sent to pharmacy. No need to notify patient. Fallon Blackwood Ma documented in this encounter
--- OUTSIDE RECORDS SUMMARY | 2020-08-31 11:35 | XMS RPT_ITS | CCD ---
:1975 External Reference #:[id number] Author Organization [facility] Care Team Providers Name Role Phone [...] Location Adrenergic Contraindication-Me High, Unknown 11-02-2014 - [facility] Beta-Antagonists dical Surgical ([id number]) Translations: [ BETA-BLOCKERS (BETA-ADRENERGIC BLOCKING AGTS)] Angiotensin Contraindication-Me 11-02-2014 - [facility] Converting Enzyme dical Surgical (88333) (Kerrie) Inhibitors Translations: [ KERRIE INHIBITORS] buPROPion Rash 05-08-2019 - [facility] (37202) Environmental 12-25-2006 - [facility] Allergies [Other] (94843) Escitalopram Intolerance 10-30-2018 - [facility] (35219) FLUoxetine Intolerance 10-30-2018 - [facility] (53457) Sertraline Intolerance 10-30-2018 - [facility] (26078) [facility]: [ (86252) VENOM-WASP] Venom-Yellow Hornet Unknown 09-26-2007 [facility] Translations: [ (07669) VENOM-YELLOW HORNET] vilazodone Mental Status 05-17-2020 - [facility] Change (46790) vortioxetine Mental Status 01-08-2020 - [facility] Change (67291) yellow jacket venom 09-26-2007 [facility] protein Translations: (34191 ) [ VENOM-YELLOW JACKET PROTEIN] OTHER Translations: [ 12-25-2006 - [facility] OTHER] Other [facility] Medications Medication Name Sig Date Prescriber Location Albuterol albuterol HFA 04-02-2020 Ra Kathy [facility] (VENTOLIN HFA) 90 (31325) mcg/actuation inhaler Inhale 2 Puffs as instructed every 4 hours as needed. 1 Inhaler 2 04/02/2020 Active albuterol (PROVENTIL) 2.5 mg /3 mL 08-07-2019 [facility] (32619) (0.083 %) nebulizer solution Use 3 mL via nebulizer every 4 hours as needed for Wheezing/Shortness of Breath. 1 vial contains 3 ml. 1 Package 1 08/07/2019 Active Comment: Inhale 2 Puffs as instructed every 4 hours as needed. Use 3 mL via nebulizer every 4 hours as needed for Wheezing/Shortness of Breath. 1 vial contains 3 ml . Allopurinol allopurinol (ZYLOPRIM) 08-04-2020 [facility] 300 mg tablet Take 1 (78323) tablet by mouth once daily. 90 tablet 3 08/04/2020 Active Comment: Take 1 tablet by mouth once daily. Amitriptyline amitriptyline (ELAVIL) 50 03-11-2020 [facility] mg tablet Take 0.5 (18804) tablets by mouth daily at bedtime. 0 03/11/2020 Active Comment: Take 0.5 tablets by mouth da jeri at bedtime. Amoxicillin / amoxicillin-clavulanic acid 06-24-2020 - Mario ([facility] ) [facility] (AUGMENTIN) 875-125 mg per 07-08-2020 [facility] (21837) tablet Indications: Bacterial sinusitis Take 1 tablet by mouth twice daily for 14 days. 28 tablet 0 06/24/2020 07/08/2020 Active Comment: Take 1 tablet by mouth twice daily for 14 days. Amphetamine aspartate amphetamine-dextroamphetamine XR [facility] / Amphetamine Sulfate (ADDERALL XR) 20 mg 24 hr capsule [facility] (27928) / Dextroamphetamine Take 20 mg by mouth once daily. 0 saccharate / Active Dextroamphetamine Sulfate Comment: Take 20 mg by mouth once mara ly. azelastine azelastine (ASTELIN,ASTEPRO) 02-04-2019 [facility] 0.1% nasal spray Use 2 Sprays (02764) in each nostril daily at bedtime. 1 Bottle 11 02/04/2019 Active Comment: Use 2 Sprays in each nostril daily at bedtime. B-complex with B-complex with 06-13-2019 [facility] vitamin C (ALLBEE vitamin C (ALLBEE (4419 5) WITH C) tablet WITH C) tablet Take 1 tablet by mouth once daily. 90 tablet 3 06/13/2019 Active B-complex with vitamin C 06-13-2019 [facility] (82983) (ALLBEE WITH C) tablet Take 1 tablet by mouth once daily. 90 tablet 3 06/13/2019 Active B-complex with vitamin C 06-13-2019 [facility] (24236) (ALLBEE WITH C) tablet Take 1 tablet by mouth once daily. 90 tablet 3 06/13/2019 Active B-complex with vitamin C 06-13-2019 [facility] (91166) (ALLBEE WITH C) tablet Take 1 tablet by mouth once daily. 90 tablet 3 06/13/2019 Active B-complex with vitamin C 06-13-2019 [facility] (27158) (ALLBEE WITH C) tablet Take 1 tablet by mouth once daily. 90 tablet 3 06/13/2019 Active B-complex with vitamin C 06-13-2019 [facility] (11265) (ALLBEE WITH C) tablet Take 1 tablet by mouth once daily. 90 tablet 3 06/13/2019 Active B-complex with vitamin C 06-13-2019 [facility] (08781) (ALLBEE WITH C) tablet Take 1 tablet by mouth once daily. 90 tablet 3 06/13/2019 Active B-complex with vitamin C 06-13-2019 [facility] (28437) (ALLBEE WITH C) tablet Take 1 tablet by mouth once daily. 90 tablet 3 06/13/2019 Active B-complex with vitamin C 06-13-2019 Ra Kathy [facility] (38916) (ALLBEE WITH C) tablet Take 1 tablet by mouth once daily. 90 tablet 3 06/13/2019 Active B-complex with vitamin C 06-13-2019 Ra Kathy VillarrealGalvez [facility] (09175) (ALLBEE WITH C) tablet Take 1 tablet by mouth once daily. 90 tablet 3 06/13/2019 Active B-complex with vitamin C 06-13-2019 [place] Kathy [facility] (92155) (ALLBEE WITH C) tablet Take 1 tablet by mouth once daily. 90 tablet 3 06/13/2019 Active B-complex with vitamin C 06-13-2019 [place] Kathy [facility] (20256) (ALLBEE WITH C) tablet Take 1 tablet by mouth once daily. 90 tablet 3 06/13/2019 Active B-complex with vitamin C 06-13-2019 [place] Kathy [facility] (69365) (ALLBEE WITH C) tablet Take 1 tablet by mouth once daily. 90 tablet 3 06/13/2019 Active B-complex with vitamin C 06-13-2019 [place] Kathy [facility] (34250) (ALLBEE WITH C) tablet Take 1 tablet by mouth once daily. 90 tablet 3 06/13/2019 Active B-complex with vitamin C 06-13-2019 [place] Kathy [facility] (18131) (ALLBEE WITH C) tablet Take 1 tablet by mouth once daily. 90 tablet 3 06/13/2019 Active B-complex with vitamin C 06-13-2019 Ra Kathy [facility] (18924) (ALLBEE WITH C) tablet Take 1 tablet by mouth once daily. 90 tablet 3 06/13/2019 Active B-complex with vitamin C 06-13-2019 [place] Kathy [facility] (69396) (ALLBEE WITH C) tablet Take 1 tablet by mouth once daily. 90 tablet 3 06/13/2019 Active B-complex with vitamin C 06-13-2019 [facility] (31188) (ALLBEE WITH C) tablet Take 1 tablet by mouth once daily. 90 tablet 3 06/13/2019 Active B-complex with vitamin C 06-13-2019 [facility] (58160) (ALLBEE WITH C) tablet Take 1 tablet by mouth once daily. 90 tablet 3 06/13/2019 Active B-complex with vitamin C 06-13-2019 Ra Kathy VillarrealGalvez [facility] (79608) (ALLBEE WITH C) tablet Take 1 tablet by mouth once daily. 90 tablet 3 06/13/2019 Active Comment: Take 1 tablet by mouth once daily. Bifidobacterium PRODIGEN 31 05-10-2020 Ra Kathy [facility] animalis / billion cell cap [place] (56985) Lactobacillus Take 1 capsule by acidophilus mouth daily at bedtime. 90 capsule 3 05/10/2020 Active Comment: Take 1 capsule by mouth ngozi y at bedtime. Calcium Carbonate OYSCO-500 500 mg 02-06-2020 [place] Kathy Galvez [facility] calcium (1,250 mg) (72072) tablet Take 1 tablet by mouth twice daily with meals. 60 tablet 5 02/06/2020 Active Comment: Take 1 tablet by mouth twice daily with meals. Calcium Carbonate / aymkfpc-nkmlulxio-quwzqhs D3 06-21-2020 [facility] Chole[facility]iferol (CALCIUM 500+D) 500 [facility] mg(1,250mg) -200 unit per (3 8134) tablet Indications: Muscle twitching Take 1 tablet by mouth twice daily with meals. 90 tablet 3 06/21/2020 Active Comment: Take 1 tablet by mouth twice daily with meals. Cetirizine cetirizine (ZYRTEC) 10 mg 02-24-2020 Ramirez Arora [facility] (05693) tablet Take 1 tablet by mouth once daily as needed. 30 tablet 7 02/24/2020 Active Comment: Take 1 tablet by mouth once daily as needed. Cholecalciferol cholecalciferol (VITAMIN 06-30-2020 [place] Kathy [facility] D3) 50 mcg (2,000 unit) (441 95) tablet Indications: Muscle twitching Take 1 tablet by mouth once daily. 90 tablet 3 06/30/2020 Active cholecalciferol (VITAMIN D3) 06-13-2019 [place] Kathy Galvez [facility] (98135) 2,000 unit tablet Indications: Muscle twitching Take 1 tablet by mouth once daily. 90 tablet 3 06/13/2019 Active Comment: Take 1 tablet by mouth once daily. Clotrimazole clotrimazole 07-14-2020 - Ra Chavez [facility] (LOTRIMIN, CLOTRIM) 1 08-13-2020 Galvez (64158 ) % cream Apply to affected area twice daily. As needed for yeast infection 60 g 1 07/14/2020 08/13/2020 Active Comment: Apply to affected area twice daily. As needed for yeast infection cornstarch / [place] Bmpchn-Xyfkak-Gcfm 11-21-2019 - Ra Morris [facility] / Zinc Oxide (GOLD SOLANO 08-25-2020 [facility] (44 195) Oxide MEDICATED BABY) 79-4-15 % powd Indications: Intertrigo Apply 1 application to affected area twice daily as needed (intertrigo). 1 Bottle 3 08/26/2020 Active Comment: Apply 1 application to affec gonzález area twice daily as needed (intertrigo). cyclobenzaprine cyclobenzaprine (FLEXERIL) 10-22-2019 [facility] 10 mg tablet Indications: Codey (4 0111) Arthralgia of left temporomandibular joint Take 1 tablet by mouth three times daily as needed for Muscle Spasm. 30 tablet 0 10/22/2019 Active Comment: Take 1 tablet by mouth three times daily as needed for Muscle Spasm. EPINEPHrine EPINEPHrine Base 07-27-2020 [facility] (SYMJEPI) 0.3 mg/0.3 mL (441 95) syrg Use as directed for allergic reaction. Seek emergent medical care immediately after use. 2 Syringe 1 07/27/2020 Active EPINEPHrine (EPIPEN) 0.3 mg/0.3 mL 03-11-2020 [facility] (48539) auto-injector Inject 0.3 mL intramuscularly as needed (for allergic reaction.Seek emergent medical care immediately after use.Disp:one 2-pack w/national sales trainer). 1 Each 1 03/11/2020 Active Comment: Inject 0.3 mL intramuscularl y as needed (for allergic reaction.Seek emergent medical care immediately aft er use.Disp:one 2-pack w/national sales trainer). Use as directed for allergic reaction. Seek emergent medical care immediately after use. Famotidine famotidine (PEPCID) 20 07-14-2019 Ra [facility] mg tablet Indications: (4419 5) GERD with esophagitis Take 1 tablet by mouth twice daily. 60 tablet 07/14/2019 Active Comment: Take 1 tablet by mouth twice daily. fluticasone / fluticasone-salmeterol HFA 01-26-2020 [facility] salmeterol (ADVAIR HFA) 115-21 [facility] ( 49191) mcg/actuation inhaler Inhale 2 Puffs as instructed twice daily. Use with spacer. Rinse mouth out after use. 1 Inhaler 01/26/2020 Active fluticasone-salmeterol HFA (ADVAIR 01-26-2020 [facility] HFA) 115-21 mcg/actuation inhaler (81936) Inhale 2 Puffs as instructed twice daily. Use with spacer. Rinse mouth out after use. 1 Inhaler 01/26/2020 Active fluticasone-salmeterol HFA (ADVAIR 01-26-2020 [facility] HFA) 115-21 mcg/actuation inhaler (46511) Inhale 2 Puffs as instructed twice daily. Use with spacer. Rinse mouth out after use. 1 Inhaler 01/26/2020 Active fluticasone-salmeterol HFA (ADVAIR 01-26-2020 [facility] HFA) 115-21 mcg/actuation inhaler (79702) Inhale 2 Puffs as instructed twice daily. Use with spacer. Rinse mouth out after use. 1 Inhaler 01/26/2020 Active fluticasone-salmeterol HFA (ADVAIR 01-26-2020 [facility] HFA) 115-21 mcg/actuation inhaler (69776) Inhale 2 Puffs as instructed twice daily. Use with spacer. Rinse mouth out after use. 1 Inhaler 01/26/2020 Active fluticasone-salmeterol HFA (ADVAIR 01-26-2020 [facility] HFA) 115-21 mcg/actuation inhaler (28028) Inhale 2 Puffs as instructed twice daily. Use with spacer. Rinse mouth out after use. 1 Inhaler 01/26/2020 Active fluticasone-salmeterol HFA (ADVAIR 01-26-2020 Ramirez A [facility] HFA) 115-21 mcg/actuation inhaler (54952) Inhale 2 Puffs as instructed twice daily. Use with spacer. Rinse mouth out after use. 1 Inhaler 01/26/2020 Active fluticasone-salmeterol HFA (ADVAIR 01-26-2020 [facility] HFA) 115-21 mcg/actuation inhaler (67201) Inhale 2 Puffs as instructed twice daily. Use with spacer. Rinse mouth out after use. 1 Inhaler 01/26/2020 Active fluticasone-salmeterol HFA (ADVAIR 01-26-2020 [facility] HFA) 115-21 mcg/actuation inhaler (41151) Inhale 2 Puffs as instructed twice daily. Use with spacer. Rinse mouth out after use. 1 Inhaler 01/26/2020 Active fluticasone-salmeterol HFA (ADVAIR 01-26-2020 [facility] HFA) 115-21 mcg/actuation inhaler (11426) Inhale 2 Puffs as instructed twice daily. Use with spacer. Rinse mouth out after use. 1 Inhaler 01/26/2020 Active fluticasone-salmeterol HFA (ADVAIR 01-26-2020 [facility] HFA) 115-21 mcg/actuation inhaler (78276) Inhale 2 Puffs as instructed twice daily. Use with spacer. Rinse mouth out after use. 1 Inhaler 01/26/2020 Active fluticasone-salmeterol HFA (ADVAIR 01-26-2020 [facility] HFA) 115-21 mcg/actuation inhaler (83634) Inhale 2 Puffs as instructed twice daily. Use with spacer. Rinse mouth out after use. 1 Inhaler 01/26/2020 Active fluticasone-salmeterol HFA (ADVAIR 01-26-2020 [facility] HFA) 115-21 mcg/actuation inhaler (90729) Inhale 2 Puffs as instructed twice daily. Use with spacer. Rinse mouth out after use. 1 Inhaler 01/26/2020 Active fluticasone-salmeterol HFA (ADVAIR 01-26-2020 [facility] HFA) 115-21 mcg/actuation inhaler (85571) Inhale 2 Puffs as instructed twice daily. Use with spacer. Rinse mouth out after use. 1 Inhaler 01/26/2020 Active fluticasone-salmeterol HFA (ADVAIR 01-26-2020 [facility] HFA) 115-21 mcg/actuation inhaler (62524) Inhale 2 Puffs as instructed twice daily. Use with spacer. Rinse mouth out after use. 1 Inhaler 01/26/2020 Active fluticasone-salmeterol HFA (ADVAIR 01-26-2020 [facility] HFA) 115-21 mcg/actuation inhaler (15682) Inhale 2 Puffs as instructed twice daily. Use with spacer. Rinse mouth out after use. 1 Inhaler 01/26/2020 Active fluticasone-salmeterol HFA (ADVAIR 01-26-2020 [facility] HFA) 115-21 mcg/actuation inhaler (71020) Inhale 2 Puffs as instructed twice daily. Use with spacer. Rinse mouth out after use. 1 Inhaler 01/26/2020 Active fluticasone-salmeterol HFA (ADVAIR 01-26-2020 [facility] HFA) 115-21 mcg/actuation inhaler (16527) Inhale 2 Puffs as instructed twice daily. Use with spacer. Rinse mouth out after use. 1 Inhaler 01/26/2020 Active fluticasone-salmeterol HFA (ADVAIR 01-26-2020 [facility] HFA) 115-21 mcg/actuation inhaler (61505) Inhale 2 Puffs as instructed twice daily. Use with spacer. Rinse mouth out after use. 1 Inhaler 01/26/2020 Active fluticasone-salmeterol HFA (ADVAIR 01-26-2020 [facility] HFA) 115-21 mcg/actuation inhaler (14482) Inhale 2 Puffs as instructed twice daily. Use with spacer. Rinse mouth out after use. 1 Inhaler 11 01/26/2020 Active Comment: Inhale 2 Puffs as instructed twice daily. Use with spacer. Rinse mouth out after use. gabapentin gabapentin 06-21-2020 - [facility] (NEURONTIN) 100 mg 09-27-2020 (06344) capsule Indications: Chronic pain syndrome , Myalgia Take 1 capsule by mouth three times daily for 98 days. 90 capsule 1 06/21/2020 09/27/2020 Active Comment: Take 1 capsule by mouth thre e times daily for 98 days. guaiFENesin guaiFENesin (MUCINEX) 06-24-2020 Mario ([employer]) [facility] 600 mg 12 hr tablet Cecilia (53235) Take 2 tablets by mouth twice daily as needed. 60 tablet 2 06/24/2020 Active Comment: Take 2 tablets by mouth twic e daily as needed. Ketotifen ketotifen fumarate 02-04-2019 Ramirez Block [facility] (19963) (ZADITOR) 0.025 % (0.035 %) ophthalmic solution One drop to each eye 2 to 3 times a day as needed. 1 Bottle 11 02/04/2019 Active Comment: One drop to each eye 2 to 3 times a day as needed. Lactobacillus reuteri L. rhamnosus-L. 04-07-2019 [facility] / Lactobacillus reuteri (MING [place] (13569) rhamnosus GG PRO-B) 2.5 billion cell cap Take 1 capsule by mouth daily at bedtime. 90 capsule 3 04/07/2019 Active Comment: Take 1 capsule by mouth ngozi y at bedtime. lamoTRIgine lamoTRIgine (LAMICTAL) 07-14-2020 [facility] 25 mg tablet Take 1 (69611) tablet by mouth once daily. 0 07/14/2020 Active lamoTRIgine (LAMICTAL) 25 06-19-2020 - 07-14-2020 [facility] mg tablet Take 25 mg by (25027) mouth twice daily. 0 06/19/2020 07/14/2020 Discontinued Comment: Take 1 tablet by mouth once daily. Take 25 mg by mouth twice da jeri. LORazepam LORazepam (ATIVAN) 0.5 mg tab Take [facility] (92805[facility] by mouth at bedtime as needed. 0 Active Comment: Take by mouth at bedtime as needed. Magnesium Oxide Magnesium Oxide 500 02-02-2020 [facility] mg tab Take 1 tablet (84612) by mouth once daily. 90 tablet 3 02/02/2020 Active Comment: Take 1 tablet by mouth once daily. meloxicam meloxicam (MOBIC) 15 mg 01-14-2020 [facility] tablet Take 0.5-1 (10276) tablets by mouth once daily. As needed for pain, Take with food. 90 tablet 1 01/14/2020 Active Comment: Take 0.5-1 tablets by mouth once daily. As needed for pain, Take with food. methylPREDNISolone methylPREDNISolone 06-24-2020 - Mario ([facility]) Cl sumanth (MEDROL, LESLIE,) 4 mg 06-30-2020 [facility] ( 96759) Dose-Pack Indications: Bacterial sinusitis Follow dosing instructions, take with food. 1 Package 0 06/24/2020 06/30/2020 Active methylPREDNISolone (MEDROL, 06-24-2020 - Mario ([facility]) [facility] LESLIE[facility] 4 mg Dose-Pack 06-30-2020 [facility] (66050) Indications: Bacterial sinusitis Follow dosing instructions, take with food. 1 Package 0 06/24/2020 06/30/2020 Active Comment: Follow dosing instructions, take with food. Nystatin nystatin (MYCOSTATIN) 02-02-2020 [facility] powder Apply 1 (28341) application to affected area four times daily. As needed for yeast rash 1 Bottle 1 02/02/2020 Active Comment: Apply 1 application to affec gonzález area four times daily. As needed for yeast rash rizatriptan rizatriptan (MAXALT) 09-23-2018 - Mario ([facility]) [facility] 10 mg tablet 06-30-2020 [facility] (75369) Indications: New daily persistent headache Take 1 tablet by mouth as needed for Migraine Headache (see administration instructions). May repeat in 2 hours if needed 12 tablet 3 06/30/2020 Active Comment: Take 1 tablet by mouth as ne eded for Migraine Headache (see administration instructions). May repeat in 2 hours if needed topiramate topiramate (TOPAMAX) 50 mg tablet [facility] (85837) Take 50 mg by mouth twice daily. 0 Active Comment: Take 50 mg by mouth twice da jeri. Triamcinolone triamcinolone acetonide 02-04-2019 Ramirez Carrillo [facility] (NASACORT AQ) 55 mcg (29418) nasal inhaler Use 2 Sprays in each nostril every morning. 1 Bottle 11 02/04/2019 Active Comment: Use 2 Sprays in each nostril every morning. Vitamin B Complex vitamin b complex (B 06-07-2018 Yojana L ([facility]) [facility] COMPLETE) tab [facility] (55342) Indications: Muscle twitching Take 1 tablet by mouth once daily. 90 tablet 3 06/07/2018 Active vitamin b complex (B 06-07-2018 Yojana L ([facility]) [facility] COMPLETE) tab Indications: (4419 5) Muscle twitching Take 1 tablet by mouth once daily. 90 tablet 3 06/07/2018 Active vitamin b complex (B 06-07-2018 Yojana L ([facility] COMPLETE) tab Indications: (4419 5) Muscle twitching Take 1 tablet by mouth once daily. 90 tablet 3 06/07/2018 Active vitamin b complex (B 06-07-2018 Yojana L ([facility]) [facility] COMPLETE) tab Indications: (4419 5) Muscle twitching Take 1 tablet by mouth once daily. 90 tablet 3 06/07/2018 Active vitamin b complex (B 06-07-2018 Yojana L ([facility]) [facility] COMPLETE) tab Indications: (4419 5) Muscle twitching Take 1 tablet by mouth once daily. 90 tablet 3 06/07/2018 Active vitamin b complex (B 06-07-2018 Yojana L ([facility]) [facility] COMPLETE) tab Indications: (4419 5) Muscle twitching Take 1 tablet by mouth once daily. 90 tablet 06/07/2018 Active vitamin b complex (B 06-07-2018 Yojana L ([facility]) [facility] COMPLETE) tab Indications: (4419 5) Muscle twitching Take 1 tablet by mouth once daily. 90 tablet 3 06/07/2018 Active vitamin b complex (B 06-07-2018 Yojana L ([facility]) [facility] COMPLETE) tab Indications: (4419 5) Muscle twitching Take 1 tablet by mouth once daily. 90 tablet 3 06/07/2018 Active vitamin b complex (B 06-07-2018 Yojana L ([facility]) [facility] COMPLETE) tab Indications: (4419 5) Muscle twitching Take 1 tablet by mouth once daily. 90 tablet 3 06/07/2018 Active vitamin b complex (06-07-2018 Yojana L ([facility]) [facility] COMPLETE) tab Indications: (4419 5) Muscle twitching Take 1 tablet by mouth once daily. 90 tablet 06/07/2018 Active vitamin b complex (06-07-2018 Yojana L ([facility]) [facility] COMPLETE) tab Indications: (4419 5) Muscle twitching Take 1 tablet by mouth once daily. 90 tablet 06/07/2018 Active vitamin b complex (06-07-2018 Yojana L ([facility]) [facility] COMPLETE) tab Indications: (4419 5) Muscle twitching Take 1 tablet by mouth once daily. 90 tablet 06/07/2018 Active vitamin b complex (06-07-2018 Yojana L ([facility]) [facility] COMPLETE) tab Indications: (4419 5) Muscle twitching Take 1 tablet by mouth once daily. 90 tablet 06/07/2018 Active vitamin b complex (06-07-2018 Yojana L ([employer]) [facility] COMPLETE) tab Indications: (4419 5) Muscle twitching Take 1 tablet by mouth once daily. 90 tablet 06/07/2018 Active vitamin b complex (06-07-2018 Yojana L ([employer]) [facility] COMPLETE) tab Indications: (4419 5) Muscle twitching Take 1 tablet by mouth once daily. 90 tablet 06/07/2018 Active vitamin b complex (06-07-2018 Yojana L ([facility]) [facility] COMPLETE) tab Indications: (4419 5) Muscle twitching Take 1 tablet by mouth once daily. 90 tablet 06/07/2018 Active vitamin b complex (06-07-2018 Yojana L ([employer]) [facility] COMPLETE) tab Indications: (4419 5) Muscle twitching Take 1 tablet by mouth once daily. 90 tablet 3 06/07/2018 Active vitamin b complex (B 06-07-2018 Yojana L ([employer]) [facility] COMPLETE) tab Indications: (4419 5) Muscle twitching Take 1 tablet by mouth once daily. 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 90 tablet 3 06/07/2018 Active Comment: Take 1 tablet by mouth once daily. ziprasidone ziprasidone (GEODON) 40 mg [facility] Provider C [facility] (07943) capsule Take 40 mg by mouth daily with dinner. 0 Active Comment: Take 40 mg by mouth daily wi th dinner. Problems Active Problems Category Problem Name Status Date Location Administrative/social Stress Active 08-14-2018 - [facility] admission (40501) Asthma Moderate persistent Active 11-02-2014 - [facility] asthma (75248) Disorders of lipid Dyslipidemia Active 01-14-2020 - [facility] metabolism (20529) Genitourinary symptoms Microscopic hematuria Active [facility] and ill-defined (67736) conditions Headache; including Refractory migraine Active 04-08-2019 - [facility] migraine (71219) Miscellaneous mental Dissociative Active 08-14-2018 - [facility] health disorders convulsions (51679) Mood disorders Severe manic bipolar I Active 08-14-2018 - [facility] disorder with (54958) psychotic features Nutritional deficiencies Vitamin D deficiency Active [facility] (62562) Other inflammatory Intertrigo Active 04-08-2019 - [facility] condition of skin (36405) Other nervous system Disturbance of Active 01-29-2019 - [facility] [place] disorders attention (73997) Other nutritional; Morbid obesity Active 11-21-2006 - [facility] endocrine; and metabolic (44 195) disorders Other upper respiratory Allergic rhinitis due Active 01-25-20 - [facility] disease to pollen (10264) Other upper respiratory Allergic rhinitis due Active 01-25-20 - [facility] disease to animals (72083) Other upper respiratory Allergic rhinitis due Active 01-25-20 18 - [facility] disease to house dust mite (99655) Other upper respiratory Allergic rhinitis Active [facility] disease (28896) Residual codes; Obstructive sleep Active 08-19-2007 - [facility] unclassified apnea syndrome (00140) Unclassified Patient encounter Active 01-29-2019 - [facility] status (61517) Unclassified Long-term current use Active 08-22-2018 - [facility] of drug therapy (46785) Unclassified Unknown / UNK(Unknown) Active 02-26-2018 - [facility] (62530) Past or Other Problems Category Problem Name Status Date Location Calculus of urinary Ureteric stone Completed 02-15-2018 - [facility] tract (46302) Diabetes mellitus Impaired fasting Completed 01-14-2020 - [facility] without complication glycaemia (38308) Epilepsy; convulsions Seizure Completed 09-23-2018 - [facility] (16773) Other connective tissue Muscle pain Completed 01-29-2019 - [facility] disease (20786) Other nervous system Chronic pain Completed 01-29-2019 - [facility] disorders syndrome (95949) Poisoning by Toxic effect of Completed 11-28-2018 - [facility] inic nonmedicinal substances venom (441 95) Results Result Name Value Range Unit Interpretation Flag Date Location obsolete on 2020-08 OBSOLETE Refill (FAMPWS) Normal 08-25-2020 [facility] BHAVESH BEAULIEU ([id number]) 1975 F [facility] Date Time Provider Department (61515) 08/25/20 RA GALVEZ FAMPWS During your visit [...] Visit: Refill Request [94] Visit Diagnosis:Intertrigo [L30.4] Order(s):[place] Zrbiop-Rtrydk-Nvbd Oxide (GOLD SOLANO MEDICATE D BABY) 79-4-15 [...] [F39] 08/14/2018 Convulsions (HCC) [R56.9] 09/23/2018 Other nursing home (current) drug therapy [Z79.899]08/22/2018 Severe manic [...] Medications Discontinued During This Encounter Prescriptions - [place] Hqayix-Folcnw-Auaf Oxide (GOLD SOLANO MEDICATED BABY) 7 9-4-15 % powd (Discontinued) Apply 1 application to affected area twice daily as ne eded (intertrigo). Not medicated Encounter Status:Closed by MARIO STARR on 08/26/20 cnpn on 2020-08-10 CNPN Telephone (ALLMED) Normal 08-10-2020 [place] [facility] BHAVESH BEAULIEU ([id number]) 1975 F [facility] Date Time Provider Department (90347) 08/10/20 RAMIREZ BLOCK During your visit today, [...] let her know her vials were in [place], she declined to schedule. I am thinking if her vials are not , the concentration is likely still not appropriate. Last injection was 02/24 in [place]. It looks like she is scheduled for follow up with you in Aug brandee. Let me know how you feel we should proceed! Thanks! Alyssa Block MD 08/10/2020 8:51 AM Signed [place] allergy nurses: Please contact patient. Due to the prolonged interval since her last set of injectio ns, recommend backing up to the starting dose of mixed vespid 3 mcg/ml a nd wasp 1 mcg/ml. Does she want to proceed? If so, it may be best to tabares ld back up to the maintenance dose at at [facility]. From staff message from Alyssa Angel on [...] not appropriate. ?Last injection was 02/24 in [place]. 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 DICTATED BY: Judah Anne JOB# [id number] stone panel i on 08-08-08 Calcium, Urine 24 Hr 273.0 100-300 mg/24 hr Normal 0 [facility] (44412) Comment: Performed By: #### STN4 #### [facility], [place] [phone]- [phone] Citrate, Urine, 24hr 939 775-8801 mg/24hrs Normal 0 [facility] (97499) Comment: Result Comment: This test wa s developed and its performance characteristics determined by [facility] [employer] ([facility]). It has not been cleared or a pproved by the FDA. [facility] is regulated under CLIA as qualified to perform high complexity testing. This test is used for clinic al purposes. It should not be regarded as investigational or for research. Performed By: #### STN4 #### [place] [address], [place] [phone] Creatinine,Urine,24h 1.991 0.8-1.8 g/24 hr High 0 [facility] (56572) Comment: Performed By: #### STN4 #### [facility] [place], [place] [phone] Oxalate, Urine, 24hr 64 4-31 mg/24hrs High 0 [facility] (95492) Comment: Result Comment: This test wa s developed and its performance characteristics determined by [facility] [employer] ([facility]). It has not been cleared or a pproved by the FDA. [facility] is regulated under CLIA as qualified to perform high complexity testing. This test is used for clinic al purposes. It should not be regarded as investigational or for research. Performed By: #### STN4 #### [place] [address], [place] [phone] Sodium,Urine,24 hr 289 40-220 mmol/24hr High 07-27-2020 [facility] (70224) Comment: Performed By: #### STN4 #### [facility], [place] [phone]- [phone] Uric Acid,Urine,24hr 757.6 250-750 mg/24hr High 0 [facility] (29899) Comment: Performed By: #### STN4 #### [facility], [place] [phone]- [phone] period / volume on 2020-07-27 Collection End Date Normal 07-27-2020 [facility] (29936) Comment: Performed By: #### STN4 #### [place] [address], [place] [phone]- [phone] Collection End Time 1029 Normal 07-27-2020 [facility] (03335) Comment: Performed By: #### STN4 #### [place] [address], [place] [phone] Collection Start Date Normal 07-27-20 20 [facility] (28903) Comment: Performed By: #### STN4 #### [place] [address], [place] [phone] Collection Start Time 1029 Normal 07-27-20 20 [facility] (84983) Comment: Performed By: #### STN4 #### [facility], [place] [phone]- [phone] Period 24 hr Normal 07-27-2020 [facility] (04905) Comment: Performed By: #### STN4 #### [place] [address], [place] [phone]- [phone] Volume 2275 mL Normal 07-27-2020 [facility] (62362) Comment: Performed By: #### STN4 #### [facility] [address] [place], [place] [phone]- [phone] cnpn on 2020-07-27 CNPN Telephone (ALLMED) Normal 07-27-2020 [place] [facility] BHAVESH BEAULIEU ([id number]) 1975 F [facility] Date Time Provider Department (99114) 07/27/20 RAMIREZ BLOCK During your visit today, we recorded the following informati on about you: Edna Tarango RN 07/27/2020 12:16 PM Addendum Epi pen rejected through [facility]. Patient needs Symjepi auto injector prescribed please. Please let pharmacy know to run for epi (barista [phone] ) [facility]: [phone] for no prior auth requirements. Ramirez Block MD 07/27/2020 1:02 PM Signed The following approved medic ation requests have been transmitted electronically. Signed Prescriptions Disp Refills EPINEPHrine Base (SYMJEPI) 0.3 mg/0.3 mL syrg 2 Syringe 1 Sig: Use as directed for allergic reaction. Seek emergent wy dical care immediately after use. Authorizing Provider: [...] [F39] 08/14/2018 Convulsions (HCC) [R56.9] 09/23/2018 Other nursing home (current) drug therapy [Z79.899]08/22/2018 Severe manic [...] SYRI* 2 Sy* 1 07/27/2020 Cmt: epi (barista [phone]) [facility]: [phone] Sig: Use as directed for allergic reaction. Seek emergent me dical care immediately after use. Encounter Status:Closed by EDNA TARANGO RN on 07/27/20 No panel information on 2020-07-27 Collection duration (U) 24 hr 2019 [facility] (81506) Collection end date (U) [id number] 2019 [facility] (86308) [Date/time] Collection end time (U) 1029 [facility] (10963) [Date/time] Collection start date (U) 4051070 [facility] (88539) [Date/time] Collection start time (U) 1029 [facility] (36632) [Date/time] Specimen volume Unsp time (U) 2275 mL 07-27-2020 [facility] (66572) uric acid on 07-20 Urate [Mass/Vol] 6.7 2.5-6.6 mg/dL High 07-20-2020 [facility] (03157) pth, intact on 2019 PTH, Intact 41 15-65 pg/mL Normal 07-20-2020 [facility] (48119) Comment: Performed By: #### PTHI #### [facility] [address] [place], [place] [phone]- [phone] progress on 2020-07 PROGRESS HNO ID: [id number] Normal 07-20-2020 [facility] Author: Derrell Hall (Tech) [place] (16256) Service: ? Author Type: Manager Economic Type: Progress Notes Filed: 07/20/2020 2:01 PM [...] * *Final Report* * * Normal 07-20 [facility] IVCON DATE OF EXAM: Jul 20 2020 12:28PM [place] (61567) [facility] 05[facility] - CT FLANK WO IVCON [...] c hanges throughout. Stable Lower thorax: Unremarkable. Management Accountant (topogram) images: Unremarkable. IMPRESSION: Right nephrolithiasis. Peripelvic renal cysts. No ureterolithiasis or gross obstruc tive uropathy. Balance Wheel Screw Hole Driller[facility] Transcribe Date/Time: Jul 20 2020 12:39P Dictated by : MARY DREW MD This examination was interpreted and the report reviewed and electronically signed by: MARY DREW MD on Jul 20 2020 12:52PM EST [id number] calcium, total on Calcium [Mass/Vol] 9.0 8.5-10.2 mg/dL Normal 07-20-2020 [facility] (28437) No panel information on 2020-07-20 [facility] (43999) progress on 2020-06 PROGRESS HNO ID: [id number] Normal 07-14-2020 [facility] Author: Ra Chavez Galvez [place] ([id number]) Service: ? Author Type: Physician Type: Progress [...] y mouth twice daily as needed. - yjezqcd-jcetjqpch-eafetaz D3 (CALCIUM 500+D) 500 mg(1,250m g) -200 [...] nt medical care immediately after use.Disp:one 2-pack w/national sales trainer). - cetirizine (ZYRTEC) 10 mg tablet [...] taking: Rep orted on 06/24/2020 ) - [place] Vymkna-Abxnog-Ydyu Oxide (GOLD SOLANO MEDICATED BABY) 7 9-4-15 [...] visit. I spent more than 20 minutes pynj-ds-nxwz with the patient a nd over half the time was devoted to counseling and/or coordination of ca re. Ra Galvez, DO progress on 2020-06 PROGRESS HNO ID: [id number] Normal 07-09-2020 [facility] Author: Nery Hallman ([id number]) Service: ? Author Type: Physician Type: Progress [...] Bacteria Culture Result - Critically 07-07-2020 C [facility] identified Cx Nom <10,000 CFU/ml abnormal Hallman (U) Lactose negative (00 000) gram negative bacilli --> ABNORMAL ALERT Insignificant colony count. No further workup. --> ABNORMAL ALERT Comment: Performed By: #### URCUL ### [address] [phone] progress on 2020-06 PROGRESS HNO ID: [id number] Normal 07-07-2020 [facility] Author: Nery Hallman ([id number]) Service: Urology Author Type: Physician Type: Progress Notes Filed: 07/08/2020 5:15 PM Note Text: [facility] NOTE DEPARTMENT OF UROLOGY [place] NAME: BHAVESH BEAULIEU [facility] NO.: [id number] DATE OF SERVICE: 07/07/2020 TELEPHONE VISIT Telephone call concerning the x-ray that just showed a quest ionable 5 mm stone in the kidney. Otherwise, she is doing satisfactorily. Will follow up with me in the office. DICTATED BY: Judah Anne/Rosalee JOB# [id number] urinalysis on 07-03 Bilirubin, Urine Negative Negative Normal 07-03-2020 [facility] (54955) Comment: Performed By: #### UA ####[address] [phone] Clarity (U) Slightly Cloudy Clear Critically abnormal [facility] (39306) Comment: Performed By: #### UA ####[address] [phone] Color (U) Yellow Yellow Normal 07-03-2020 [facility] (94159) Comment: Performed By: #### UA ####[address] [phone] Comments SEE COMMENT Normal 07-03-2020 [facility] (35682) Comment: Result Comment: Microscopic Examination Performed Performed By: #### UA ####Cl [address] [phone] Epithelial cells LM.HPF SEE COMMENT Normal 06-19 [facility] (Urine sed) [#/Area] [place] (17906) Comment: Result Comment: Few Squamous Epithelial Cells Performed By: #### UA ####Cl [address] [phone] Glucose Ql (U) Negative Negative Normal 07-03-2020 [facility] (42733) Comment: Performed By: #### UA ####[address] [phone] Hemoglobin/Blood,Ur 1+ Negative Critically abnormal 07-03-2020 [facility] (43826) Comment: Performed By: #### UA ####[address] [phone] Ketones Ql (U) Negative Negative Normal 07-03-2020 [facility] (16608) Comment: Performed By: #### UA ####[address] [phone] Leukest 3+ Negative Critically abnormal 07-03-2020 [facility] (47558) Comment: Performed By: #### UA ####[address] [phone] Nitrite Ql (U) Negative Negative Normal 07-03-2020 [facility] (95969) Comment: Performed By: #### UA ####[address] [phone] pH (Bld) 6.0 5.0-8.0 Normal 07-03-2020 [facility] (98005) Comment: Performed By: #### UA ####[address] [phone] Protein (U) [Mass/Vol] Negative Negative mg/dL Normal 020 [facility] (33147) Comment: Performed By: #### UA ####Cl [address] [phone] RBC (U) [#/Vol] 3-5 0-3 Critically abnormal 08- [facility] (36549) Comment: Performed By: #### UA ####[address] [phone] Specific Central, Ur 1.019 1.005-1.030 Normal 020 [facility] (01110) Comment: Performed By: #### UA ####[address] [phone]- [phone] Urine Johnnie Comment SEE COMMENT Normal 07-03-2020 [facility] (63847) Comment: Result Comment: N/A Performed By: #### UA ####[address] [phone] Urobilinogen Qn (U) Negative Negative Normal 07-03-2020 [facility] (52890) Comment: Performed By: #### UA ####[address] [phone]- [phone] WBC (Bld) [#/Vol] 11-25 0-5 Critically abnormal [facility] (27434) Comment: Performed By: #### UA ####[address] [phone]- [phone] Yeast LM Ql (Urine Few 0 Critically abnormal 0 07-03-2020 [facility] sed) [place] (22721) Comment: Result Comment: Juan Hernandez t Performed By: #### UA ####[address] [phone] xr abdomen 1v supine on 2020-07-02 XR ABDOMEN 1V * * *Final Report* * * Normal [facility] SUPINE DATE OF EXAM: Jul 02 2020 10:52AM [place] (52014) WRX 5289 - XR ABDOMEN 1V SUPINE [...] with renal ultrasound as clinically indic ated. Balance Wheel Screw Hole Driller: DONNY Transcribe Date/Time: Jul 02 2020 4:40P Dictated by : FLOYD MIR MD This examination was interpreted and the report reviewed and electronically signed by: FLOYD MIR MD on Jul 02 2020 4:44PM EST [id number] vitamin d 25 hydroxy on 2020-07-02 Vitamin D 25 Hydroxy 43.7 31.0-80.0 ng/mL Normal 0 [facility] (08303) Comment: Result Comment: Classificati on of 25 [place] Vitamin D status: Insufficiency/Moderate Defic iency: < or = 30 ng/mL Sufficiency/Optimal Levels: 31 to 80 ng/mL Toxicity: > 100 ng/mL Test performed by chemilumin escent immunoassay. Performed By: #### VITD, HBA 1C ####[facility] [address] [place], [place] [phone]- [phone] progress on 2020-06 PROGRESS HNO ID: [id number] Normal 07-02-2020 [facility] Author: Jerri (Rt) Derrell Carvajal (73053) Service: ? Author Type: Manager Economic Type: Progress Notes Filed: 07/02/2020 10:53 AM [...] (Bld) [Mass fraction] 5.7 4.3-5.6 % High [facility] (31211) Comment: Result Comment: [place] Tari betes Association guidelines indicate that patients with HgbA1c in the range 5.7-6.4% are at increased risk for development of diabetes, and intervention by lifestyle modification may be beneficial. HgbA1c greater o r equal to 6.5% is considered diagnostic of diabetes. Performed By: #### VITD, HBA 1C ####[facility] [address] [place], [place] [phone]- [phone] HbA1c (Bld) [Mass fraction] 117 mg/dL Normal [facility] (32448) Comment: Result Comment: eAG: (Estima gonzález average glucose) is a calculated value from HgbA1c and is payroll representative of the average blood glucose level in the last 2-3 month period. Performed By: #### VITD, HBA 1C ####[facility] [address] [place], [place] [phone]- [phone] obsolete on 2020-06 OBSOLETE Refill (FAMPWS) Normal 06-28-2020 [facility] BHAVESH BEAULIEU ([id number]) 1975 F [facility] Date Time Provider Department (52946) 06/28/20 RA GALVEZ During your visit today, [...] mood Date Reviewed: 06/24/2020 Reviewed by: Mario SalasAutomatic Machines SupervisorJose Miguel Starr - Fully Assessed Reason for [...] [F39] 08/14/2018 Convulsions (HCC) [R56.9] 09/23/2018 Other nursing home (current) drug therapy [Z79.899]08/22/2018 Severe manic [...] 06/30/20 progress on 2020-06 PROGRESS HNO ID: [id number] Normal 06-24-2020 [facility] Author: Mario Morales) [facility] (50972) Service: ? Author Type: Nurse Practitioner Type: [...] agrees to the visit: Yes Patient Location: [facility] Bhavesh Beaulieu is a 44 year [...] three times daily for 98 days. - tafjvqx-evhnoftog-tydriee D3 (CALCIUM 500+D) 500 mg(1,250m g) -200 [...] nt medical care immediately after use.Disp:one 2-pack w/national sales trainer). - cetirizine (ZYRTEC) 10 mg tablet [...] R inse mouth out after use. - [place] Uwocol-Qvegya-Ugrj Oxide (GOLD SOLANO MEDICATED BABY) 7 9-4-15 [...] on 2020-06-21 CNPN Telephone (INTMWS) Normal 06-21-2020 [place] BHAVESH Garza ([id number]) 1975 [address] [place]ie [place] Date Time Provider Department (56412) 06/21/20 RA GALVEZ INTMWS During your visit today, we recorded the following informati on about you: Kareen Baeza LPN 06/21/2020 11:34 AM Signed Patient calling to report symptoms of sinus infe ction. She has pressure under her eyes, sinus headache, green drainage. She had a fe vinod the other day, but none at this time. Denies being in contact with anyone with/ suspected of COVID. Denies any other symp toms. She uses [facility] in [place]. Please advise. Jasmyne Benavidez MA 06/21/2020 3:04 PM Signed Pt sent in message asking status of phone message a nd asking if something can be called into her pharmacy, [facility] in [place]. 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 [Z79.899]08/22/2018 Severe manic bipolar [...] on 2020-06-03 CNPN Telephone (GLQ) Normal 06-03-2020 [facility] BHAVESH BEAULIEU ([id number]) 1975 Count includes the [facility] Date Time Provider Department (72436) 06/03/20 NERY CANELA GLQ During your visit [...] Comments: Avoid use of beta blockers and KERIRE inhibitors [facility] e patient is on venom immunotherapy KERRIE [...] [F39] 08/14/2018 Convulsions (HCC) [R56.9] 09/23/2018 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 Author Type: Physician Type: Progress [...] 2020-05-31 CNOV Office Visit (BRICE) Normal 05-31-[address] [place] [address] [facility] BHAVESH BEAULIEU Valeri ([id number]) 1975 F [facility] Date Time Provider Department ([id number]) 05/31/20 1:20 PM NINFA MCDONALD During your [...] no further questions. 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 [Z79.899]08/22/2018 Severe manic bipolar [...] MD NINFA MCDONALD on 06/02/20 [facility] on [facility] Nurse Visit (ALLMED) Normal 0 [place] [facility] BHAVESH BEAULIEU ([id number]) 1975 F [facility] Date Time Provider Department ([id number]) 05/27/20 1:20 PM NURSE LUIS OLVERA During [...] [F39] 08/14/2018 Convulsions (HCC) [R56.9] 09/23/2018 Other nursing home (current) drug therapy [Z79.899]08/22/2018 Severe manic [...] 01/14/2020 Visit Notes: >> Ashwini Chu RN [facility] May 27, 2020 1:22 PM Status: Sign ed Charged for 2 venom vials. 8 doses total. 4 stinging insects . Encounter Status:Closed by ASHWINI CHU RN on 05/27/20 cnco on 2020-05-27 CNCO Letter Text Normal 05-27-2020 [facility] ([id number]) procedure on 05-21 PROCEDURE HNO ID: [id number] Normal 05-21-2020 [facility] Author: Ninfa Mcdonald [place] ([id number]) Service: ? Author Type: Physician Type: Procedures [...] pathology on 2020-05-20 SURGICAL Specimen originated from [facility] Normal 05-20-2020 [place] PATHOLOGY Specimen #: [id number] Clinic Submitting Physician: NINFA MCDONALD MD [place] ([id number]) FINAL DIAGNOSIS Left breast, ultrasound-guided core biopsy [...] in two cassettes. Gross examination performed at [facility], [address] [place] [address] 05/21/2020 1:25:03 AM Date of Report: 05/24/2020 Date of Procedure: 05/20/2020 Date of Receipt: 05/20/2020 Submitted by: NINFA MCDONALD MD Location: [facility] Diagnostic interpretation performed at [facility], [address] [place] [address]. CLIA Number: [id number] progress on 2020-05 PROGRESS HNO ID: [id number] Normal 05-19-2020 [facility] Author: Ninfa Mcdonald [place] ([id number]) Service: ? Author Type: Physician Type: Progress Notes Filed: 05/21/2020 11:13 AM Note Text: Ms. Beaulieu is here for US guided right breast biopsy. She tolerated this well. Follow up next week for wound check and discussion of pathol ogy results. PROGRESS HNO ID: [id number] Normal 05-19-2020 [facility] Author: Derrell Whitney (Tech) [place] ([id number]) Service: ? Author Type: Manager Economic Type: Progress Notes Filed: 05/19/2020 4:00 PM [...] DATA: Not applicable SIGNED BY: Derrell Whitney May 19, 2020 3:58 PM [facility] diagnostic lt o n 2020-05-19 [facility] DIAGNOSTIC LT * * *Final Report* * * Normal 05-19-2020 [facility] DATE OF EXAM: May 19 2020 3:53PM [facility] 0621 - [facility] DIAGNOSTIC LT / ([id number]) PROCEDURE REASON: Abnormal ultrasound of breast * * * * Physician Interpretation * * * * RESULT: #[id number] - [facility] DIAGNOSTIC LT UNILATERAL LEFT DIGITAL DIAGNOSTIC MAMMOGRAM [...] [facility] [place], and [facility]2019 mammogram - [facility]. There are scattered fibroglandular elements i n left breast. There is a new biopsy clip in the left breast at 12 o'clock. There is localized hemorrhage around biopsy site. The previous asymme try is therefore not seen currently. IMPRESSION: POST PROCEDURE MAMMOGRAM FOR MARKER PLACEMENT Celestino youngblood/tierney:05/19/2020 16:03:47 Medical Assistant Dermatology(s): Lilia Galvan RT(R)(M), [facility] [...] Health, Family Medicine, and Medical/Surgical Oncology, the [facility] has carefully reviewed the data and reached [...] providers when to sto p screening mammograms. Balance Wheel Screw Hole Driller: Tierney Transcribe Date/Time: May 19 2020 3:53P Dictated by: CELESTINO ARANGO MD This examination was interpreted and the report reviewed and electronically signed by: CELESTINO ARANGO MD on May 19 2020 4:03PM EST [id number] cnov on 2020-05-19 CNOV Office Visit (GENSWS) Normal 07-01-[address] [place] [address] Clinic BHAVESH BEAULIEU ([id number]) 1975 F [facility] Date Time Provider Department ([id number]) 05/19/20 2:30 PM NINFA MCDONALD During your [...] EBL - minimal Referring Provider: NINFA MCDONALD [[id number]] Allergies As of Date: 05/19/2020 Noted Allergy [...] ultrasound of breast [R92.8 ] Order(s):SURGICAL PATHOLOGY [[id number]] Order #: [id number] c. #:[id number] Prescriptions as of 05/19/2020 Sig: PRODIGEN 31 [...] [F39] 08/14/2018 Convulsions (HCC) [R56.9] 09/23/2018 Other nursing home (current) drug therapy [Z79.899]08/22/2018 Severe manic [...] 05/21/20 progress on 2020-04 PROGRESS HNO ID: [id number] Normal 05-17-2020 [facility] Author: Ninfa Mcdonald [place] ([id number]) Service: ? Author Type: Physician Type: Progress [...] GATA3 (L50-823) negative AE1-3 (AE1/AE3/PCK26) negative CK8 (38helxY48) negative Vimentin (V9) positive Macro (HAM-56) positive [...] nt medical care immediately after use.Disp:one 2-pack w/national sales trainer). - cetirizine (ZYRTEC) 10 mg tablet [...] needed for pain, Take with food. - [place] Aumikd-Xwejzb-Nilv Oxide (GOLD SOLANO MEDICATED BABY) 7 9-4-15 [...] tablet by mouth tw ice daily. - ebnitlz-sgcercvsy-gfywkay D3 (CALCIUM 500+D) 500 mg(1,250m g) -200 [...] - denies chest pain, denies history of [place] Pulmonary - has shortness of breath with [...] 2020-05-17 CNOV Office Visit (SWS) Normal 05-17-[address] [place] [address] BHAVESH Garza ([id number]) 1975 Count includes the [facility] Date Time Provider Department ([id number]) 05/17/20 1:20 PM NINFA MCDONALD During your [...] GATA3 (L50-823) negative AE1-3 (AE1/AE3/PCK26) negative CK8 (99mvezO85) negative Vimentin (V9) positive Macro (HAM-56) positive [...] mL intramuscularly as needed (for allergic reaction.Seek [facility] care immediately after use.Disp:one 2-pack w/national sales trainer). - cetirizine (ZYRTEC) 10 mg tablet [...] needed for pain, Take with food. - [place] Nczsrb-Sspjzj-Nudy Ox yanna (GOLD SOLANO MEDICATED BABY) 79-4-15 [...] tablet by mouth tw ice daily. - nxmdycu-uhcmhetnk-ddwdook D3 (CALCIUM 500+D) 500 mg( 1,250mg) -200 [...] - denies chest pain, denies history of [place] Pulmonary - has shortness of breath with [...] 2 table tRfl: 0 [facility] [[id number]] Order #: [id number] FUTURE Prescriptions as of 05/17/2020 Sig: DIAZEPAM [...] [F39] 08/14/2018 Convulsions (HCC) [R56.9] 09/23/2018 Other nursing home (current) drug therapy [Z79.899]08/22/2018 Severe manic [...] 05/20/20 progress on 2020-04 PROGRESS HNO ID: [id number] Normal 05-11-2020 [facility] Author: Derrell Aguilera (Tech) ([id number]) Service: ? Author Type: Manager Economic Type: Progress Notes Filed: 05/11/2020 12:16 PM [...] 11, 2020 12:16 PM PROGRESS HNO ID: [id number] Normal 05-11-2020 [facility] Author: Derrell Ren (Tech) [place] ([id number]) Service: ? Author Type: Manager Economic Type: Progress Notes Filed: 05/11/2020 11:07 AM [...] Derrell Ren May 11, 2020 11:06 AM [facility] [employer] breast ltd lt on 2020-05-11 [facility] US BREAST * * *Final Report* * * Normal [facility] LT DATE OF EXAM: May 11 2020 12:02PM [place] ([id number]) WRU 0593 - [facility] [place] OTR BREAST LTD LT / PROCEDURE REASON: Abnormal mammogram * * * * Physician Interpretation * * * * #[id number] - [facility] DIAGNOSTIC LT #[id number] - [facility] [place] OTR BREAST LTD LT UNILATERAL LEFT DIGITAL DIAGNOSTIC [...] [place], 04/07/2019 mammogram, and 03/13/2018 mammogram - [facility]. There are scattered fibroglandular elements [...] [place], 04/07/2019 mammogram, and 03/13/2018 mammogram - [facility]. Color flow and real-time ultrasound [...] Health, Family Medicine, and Medical/Surgical Oncology, the [facility] has carefully reviewed the data and reached [...] providers when to sto p screening mammograms. Medical Assistant Dermatology(s): Zahraa Ball, RT(R)(M), [facility]; Evangelina Guillaume [facility] OVERALL STUDY BIRADS: 4 Suspicious finding - Biopsy should b e considered Balance Wheel Screw Hole Driller: Tierney Transcribe Date/Time: May 11 2020 10:56A Dictated by : CELESTINO ARANGO MD This examination was interpreted and the report reviewed and electronically signed by: CELESTINO ARANGO MD on May 11 2020 1:10PM EST [id number] [facility] diagnostic lt o n 2020-05-11 [facility] DIAGNOSTIC LT * * *Final Report* * * Normal 05-11-2020 [facility] DATE OF EXAM: May 11 2020 11:29AM [facility] 0621 - [facility] DIAGNOSTIC LT / ([id number]) PROCEDURE REASON: Abnormal mammogram * * * * Physician Interpretation * * * * RESULT: #[id number] - [facility] DIAGNOSTIC LT #[id number] - [facility] US BREAST LTD LT UNILATERAL LEFT DIGITAL [...] [place], 04/07/2019 mammogram, and 03/13/2018 mammogram - [facility]. There are scattered fibroglandular elements [...] [place], 04/07/2019 mammogram, and 03/13/2018 mammogram - [facility]. Color flow and real-time ultrasound [...] Health, Family Medicine, and Medical/Surgical Oncology, the [facility] has carefully reviewed the data and reached [...] providers when to sto p screening mammograms. Medical Assistant Dermatology(s): Zahraa Ball, RT(R)(M), [facility]; Evangelina Guillaume [facility] OVERALL STUDY BIRADS: 4 Suspicious finding - Biopsy should b e considered Balance Wheel Screw Hole Driller: Tierney Transcribe Date/Time: May 11 2020 10:56A Dictated by: CELESTINO ARANGO MD This examination was interpreted and the report reviewed and electronically signed by: CEELSTINO ARANGO MD on May 11 2020 1:10PM EST [id number] [facility] CNPN Telephone (RDXWS) Normal 04-22-2020 [facility] BHAVESH BEAULIEU ([id number]) 1975 F [place] Date Time Provider Department ([id number]) 04/22/20 RA GALVEZ RDXWS During your visit [...] Orders [681] Primary Visit Diagnosis:Abnormal mammogram [R92.8] Order(s):[facility] DIAGNOSTIC LT [[id number]] Order #: [id number] FUT URE US BREAST LTD LT [[id number]] Order #: [id number] FUTURE Prescriptions as of 04/22/2020 Sig: ALBUTEROL [...] [F39] 08/14/2018 Convulsions (HCC) [R56.9] 09/23/2018 Other nursing home (current) drug therapy [Z79.899]08/22/2018 Severe manic [...] 04/22/20 progress on 2020-04 PROGRESS HNO ID: [id number] Normal 04-19-2020 [facility] Author: Derrell Dixon (Tech) ([id number]) Service: ? Author Type: Manager Economic Type: Progress Notes Filed: 04/19/2020 11:17 AM [...] 2020 11:17 AM chucky screening on 08-05-01 [facility] SCREENING * * *Final Report* * * Normal [facility] DATE OF EXAM: Apr 19 2020 11:43AM [place] ([id number]) WRW 0581 - [facility] SCREENING / PROCEDURE REASON: Screening for breast cancer * * * * Physician Interpretation * * * * RESULT: #[id number] - [facility] SCREENING BILATERAL DIGITAL SCREENING MAMMOGRAM WITH CAD: [...] 04/07/2019 mammogram, mammogram, and 11/14/2016 mammogram - [facility]. There are scattered fibroglandular elements in both [...] exam was reviewed by a staff physician. Jermiane mulligan,ifeanyi/penjennyfer:04/19/2020 13:21:05 Medical Assistant Dermatology(s): RT Mauri(Dell)(M), [facility] letter sent: Additional Imaging Needed Mammogram BI-RADS: 0 Incomplete: needs additional imaging ev aluation If this report indicates you need additional imaging, and it has NOT yet been performed, please call , to schedule. We sincerely thank you for choosing the [facility] for yo ur breast imaging needs. [...] Health, Family Medicine, and Medical/Surgical Oncology, the [facility] has carefully reviewed the data and reached [...] providers when to sto p screening mammograms. Balance Wheel Screw Hole Driller: Tierney Transcribe Date/Time: Apr 19 2020 11:25A Dictated by: LIZ CAMPOS MD This examination was interpreted and the report reviewed and electronically signed by: JERMAINE BOYLE MD on Apr 19 2020 1:21PM EST [id number] cnco on 2020-04-19 CNCO HNO ID: [id number] Normal 04-19-2020 [facility] Author: Mammography Coordinator [place] ([id number]) Service: ? Author Type: Physician Type: Letter Filed: 04/20/2020 11:32 PM Note Text: April 19, 2020 PID: [id number] Bhavesh Beaulieu [address] [place] [address] Dear Ms. Beaulieu, Your recent breast imaging exam on 04/19/2020 showed a possibl e finding that requires additional imaging studies for a complete evaluatio n. Most such findings are probably benign (not cancer). If you have a healthcare provider who ordered/prescribed you r screening mammogram: Please call [phone] or [phone] to schedule an appointment for your additional [...] and reports are kept on file at [facility] as part of your permanent medical record, and are available for your continuing care. Thank you for allowing us to help in meeting your health car e needs. Sincerely, Dr. Boyle Interpreting Radiologist [facility] (Additional imaging) progress on 2020-03 PROGRESS HNO ID: [id number] Normal 04-05-2020 [facility] Author: Kaylin Chen) Zan Hallman ([id number]) Service: ? Author Type: Physician Hairspring Fabrication Supervisor Type: Progress Notes Filed: 04/08/2020 8:35 AM Note Text: Telemedicine Visit - Distance Health Virtual Visit Note Patient seen on [employer] Online platform. Location of patient: [place] This Team Access Model visit is a phone encounter. It requir ed patient-provider interaction for the medical decision making as documented below. Not able to connect x 2 on [employer] platform so converted to a phone visit. [...] 50 mg tablet Take 0.5 tablets by [facility] daily at bedtime. - EPINEPHrine (EPIPEN) 0.3 mg/0.3 mL auto-injector Inject 0. 3 mL intramuscularly as needed (for allergic reaction.Seek emerge nt medical care immediately after use.Disp:one 2-pack w/national sales trainer). - cetirizine (ZYRTEC) 10 mg tablet [...] capsule by mouth daily at bedtime. - [place] Yywuyo-Lxdmcd-Aafw Oxide (GOLD SOLANO MEDICATED BABY) 7 9-4-15 [...] tablet by mouth tw ice daily. - xvdjsap-rqqrjxtcx-alagpeh D3 (CALCIUM 500+D) 500 mg(1,250m g) -200 [...] plan. Kaylin Zuluaga PA-C PROGRESS HNO ID: [id number] Normal 04-05-2020 [facility] Author: Kaylin Zuluaga (Pa) [place] ([id number]) Service: ? Author Type: Physician Hairspring Fabrication Supervisor Type: Progress Notes Filed: 04/05/2020 12:40 PM Note Text: Not able to connect on ECO with patient. Kaylin Zuluaga PA-C obsolete on 2020-03 OBSOLETE Refill (FAMPWS) Normal 04-02-2020 [facility] BHAVESH BEAULIEU ([id number]) 1975 Count includes the [facility] Date Time Provider Department ([id number]) 04/02/20 RA GALVEZ FAMPWS During your visit [...] Provider: RA GALVEZ Ordering User: MARIO STARR APRN.CONDUIT BENDER Allergies As of Date: 04/02/2020 Noted Allergy [...] [F39] 08/14/2018 Convulsions (HCC) [R56.9] 09/23/2018 Other nursing home (current) drug therapy [Z79.899]08/22/2018 Severe manic [...] 04/02/20 progress on 2020-02 PROGRESS HNO ID: [id number] Normal 03-11-2020 [facility] Author: Ramirez Block [place] ([id number]) Service: ? Author Type: Physician Type: Progress [...] she has moved into a new apartment. [facility] has central air conditioning and carpeting in [...] obst ructive sleep apnea who [facility]. Her last visit in is office [...] capsule by mouth daily a t bedtime. [place] Nlnxzl-Umucbg-Nsui Oxide (GOLD SOLANO MEDICATED BABY) 79- 4-15 [...] 1 tablet by mouth twic e daily. dfpstyh-oobhtgcna-fhzfwmk D3 (CALCIUM 500+D) 500 mg(1,250mg) -200 unit [...] nt medical care immediately after use.Disp:one 2-pack w/national sales trainer). ALLERGIES: Allergies As of Date: 03/11/2020 [...] on first floor right above basement. Erin: Bkwk-np-lvfv carpeting Dust mite controls: Dust mite controls [...] 2020-02-25 CNOV Office Visit (FAMPWS) Normal 02-25-[address] [place] [address] [facility] BHAVESH BEAULIEU ([id number]) 1975 Count includes the [facility] Date Time Provider Department ([id number]) 02/25/20 11:10 AM [facility] During your visit today, we recorded [...] written on: 09/04/[address] Ramirez Arboleda [phone] Concentration: 300 mcg Dose: 1 ml SQ Arm: left upper arm (proximal) Reaction after 30 minutes: flare Vial Content: WASP Concentration: 100 mcg Dose: 1 ml SQ Arm: right upper arm (proximal) Reaction after 30 minutes: flare Appointment line and nurses station numb er given as well as injection times at administering location. Marie Angel LPN Referring Provider: RAMIREZ BLOCK [[id number]] Allergies As of Date: 02/25/2020 Noted Allergy [...] [F39] 08/14/2018 Convulsions (HCC) [R56.9] 09/23/2018 Other nursing home (current) drug therapy [Z79.899]08/22/2018 Severe manic [...] [R73.01] 01/14/2020 Visit Notes: >> Marie Angel ENDLESS BED DRUM SANDER SunFeb 25, 2020 11:26 AM Status: Sig [...] written on: 09/04/[address] Ramirez Segura [place] [phone] Concentration: 300 mcg Dose: 1 ml SQ [...] OBSOLETE Refill (ALLMED) Normal 02-22-2020 Kade veland [facility] BHAVESH BEAULIEU ([id number]) 1975 Count includes the [facility] Date Time Provider Department ([id number]) 02/22/20 RAMIREZ BLOCK During your visit today, [...] [F39] 08/14/2018 Convulsions (HCC) [R56.9] 09/23/2018 Other nursing home (current) drug therapy [Z79.899]08/22/2018 Severe manic [...] on 2020-01 OBSOLETE Refill (FAMPWS) Normal 02-05-2020 [facility] BHAVESH BEAULIEU ([id number]) 1975 F [place] Date Time Provider Department ([id number]) 02/05/20 RA GALVEZ FAMPWS During your visit [...] [F39] 08/14/2018 Convulsions (HCC) [R56.9] 09/23/2018 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 [Z79.899]08/22/2018 Severe manic bipolar [...] OBSOLETE Refill (FAMPWS) Normal 01-30-2020 Kade ferris [facility] PENNYDellMerylBHAVESH Valeri ([id number]) 1975 [facility] Date Time Provider Department (60563) 01/30/20 RA GALVEZ FAMPWS During your visit [...] [F39] 08/14/2018 Convulsions (HCC) [R56.9] 09/23/2018 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 Allergy injections given subcutaneously. January 28, 2020 11:17 AM Patient states they did not take antihistamine. Immunotherapy Order written on: 09/04/[address] Ramirez Arboleda [phone] If patient has asthma, patient states symptoms [...] IT Check completed. Referring Provider: RAMIREZ BLOCK [[id number]] Allergies As of Date: 01/28/2020 Noted Allergy [...] [F39] 08/14/2018 Convulsions (HCC) [R56.9] 09/23/2018 Other nursing home (current) drug therapy [Z79.899]08/22/2018 Severe manic [...] written on: 09/04/[address] Ramirez Segura [place] [phone] If patient has asthma, patient states symptoms [...] on 01/28/20 cnpn on 2020-01-27 CNPN Telephone (UniPay) Normal 01-27-2020 [place] [facility] LITABHAVESH DUTTON ([id number]) 1975 [facility] Date Time Provider Department ([id number]) 01/27/20 RAMIREZ BLOCK ALLJULIA During your visit today, we recorded the following informati on about you: Ashwini Chu RN 01/27/2020 10:16 AM Signed Kasie SWIFT initiated via covermymeds. Ashwini Chu RN 01/27/2020 10:58 AM Signed JAMISON approved. Approvedtoday 27-JAN-20:25-JAN-21 Kasie [facility] 115-21MCG/ACT IN AERO Quantit y 1 JAMISON Ashwini Chu RN 01/27/2020 10:59 AM Signed Patient aware via . 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 Author Type: Physician Type: Progress [...] three times daily for 98 days. - [place] Wsozpy-Qqrtif-Ntzu Oxide (GOLD SOLANO MEDICATED BABY) 7 9-4-15 [...] tablet by mouth tw ice daily. - kzwethc-aopudmbad-rxpqmxr D3 (CALCIUM 500+D) 500 mg(1,250m g) -200 [...] nt medical care immediately after use.Disp:one 2-pack w/national sales trainer). - amoxicillin-clavulanic acid (AUGMENTIN) 875-125 mg [...] See patient instructions. Ra Galvez DO [address] [place] [address] lipid panel, basic on 2020-01-14 Cholesterol [Mass/Vol] 159 <200 mg/dL Normal 01-14-2 020 [facility] ([id number]) Comment: Result Comment: <200 mg/dL, Desirable 200-239 mg/dL, Borderline hi gh >239 mg/dL, High Performed By: #### HBA1C, CB CDIF, CMP, LIPB ####[facility] [address] [place], [place] [phone] Cholesterol in HDL 49 >39 mg/dL Normal 01-14-2020 [facility] [Mass/Vol] ([id number]) Comment: Result Comment: 40-59 mg/dL, Acceptable >59 mg/dL, High: Negative ri sk factor for coronary heart disease <40 mg/dL, Low: Positive ris k factor for coronary heart disease Performed By: #### HBA1C, CB CDIF, CMP, LIPB ####[facility] [place], [place] [phone] Cholesterol in LDL 96 <100 mg/dL Normal 01-14-2020 [facility] [Mass/Vol] [place] ([id number]) Comment: Result Comment: <100 mg/dL, Optimal 100-129 mg/dL, Near optimal/ above optimal 130-159 mg/dL, Borderline hi gh 160-189 mg/dL, High >189 mg/dL, Very high Secondary prevention optimal LDL Cholesterol levels are recommended to be < 70 mg/dL Performed By: #### HBA1C, CB CDIF, CMP, LIPB ####[facility] [place], [place] [phone] Fasting Time 1 hrs Normal 01-14-2020 [facility] ([id number]) Comment: Performed By: #### HBA1C, CB CDIF, CMP, LIPB ####[facility] [place], [place] [phone] LDL:HDL Ratio 1.96 <2.54 Normal 01-14-2020 [facility] ([id number]) Comment: Result Comment: Reference: 1. National Cholesterol Educ ation Program ATP III Guideline At-A-Glance Quick Desk Reference: National Heart, Lung, and Blood [employer]. National Institutes of Health. 2001: NIH Publication No. 01-3305. 2. An International Atherosc lerosis Society position paper: global recommendations for the management of dyslipidemia: executive summary, Atherosclerosis. 2014: 232(2):410-413. Performed By: #### HBA1C, CB CDIF, CMP, LIPB ####[facility] [address] [place], [place] [phone] Non HDL Cholesterol 110 <130 mg/dL Normal 01-14-2020 [facility] (30346) Comment: Result Comment: <130 mg/dL, Optimal 130-159 mg/dL, Near optimal/ above optimal 160-189 mg/dL, Borderline hi gh 190-219 mg/dL, High >219 mg/dL, Very high Secondary prevention optimal non HDL Cholesterol levels are recommended to be < 100 mg/dL Performed By: #### HBA1C, CB CDIF, CMP, LIPB ####[facility] [address] [place], [place] [phone] TC:HDL Ratio 3.24 <5.10 Normal 01-14-2020 [facility] (90450) Comment: Performed By: #### HBA1C, CB CDIF, CMP, LIPB ####[facility] [place] [phone] Triglyceride [Mass/Vol] 70 <150 mg/dL Normal 2019 [facility] (51746) Comment: Result Comment: <150 mg/dL, Normal 150-199 mg/dL, Borderline hi gh 200-499 mg/dL, High >499 mg/dL, Very high Performed By: #### HBA1C, CB CDIF, CMP, LIPB ####[facility] [place] [phone] VLDL Cholesterol 14 <30 mg/dL Normal 01-14-2020 [facility] (61089) Comment: Performed By: #### HBA1C, CB CDIF, CMP, LIPB ####[facility] [place] [phone] hemoglobin a1c on 2 HbA1c (Bld) [Mass fraction] 117 mg/dL Normal [facility] (32363) Comment: Result Comment: eAG: (Estima gonzález average glucose) is a calculated value from HgbA1c and is payroll representative of the average blood glucose level in the last 2-3 month period. Performed By: #### HBA1C, CB CDIF, CMP, LIPB ####[facility] [place] [phone] HbA1c (Bld) [Mass fraction] 5.7 4.3-5.6 % High [facility] (37737) Comment: Result Comment: [place] Tari betes Association guidelines indicate that patients with HgbA1c in the range 5.7-6.4% are at increased risk for development of diabetes, and intervention by lifestyle modification may be beneficial. HgbA1c greater o r equal to 6.5% is considered diagnostic of diabetes. Performed By: #### HBA1C, CB CDIF, CMP, LIPB ####[place] [address] [place] [phone] comp metabolic panel on 2020-01-14 Albumin [Mass/Vol] 4.2 3.9-4.9 g/dL Normal 01-14-2020 [facility] (60120) Comment: Performed By: #### HBA1C, CB CDIF, CMP, LIPB ####[place] [address] [place] [phone] ALP [Catalytic activity/Vol] 50 34-123 U/L Normal 0 01-14-2020 [facility] (14981) Comment: Performed By: #### HBA1C, CB CDIF, CMP, LIPB ####[place] [address] [place] [phone] ALT [Catalytic activity/Vol] 17 7-38 U/L Normal 0 01-14-2020 [facility] (82509) Comment: Performed By: #### HBA1C, CB CDIF, CMP, LIPB ####[place] [address] [place] [phone] Anion gap [Moles/Vol] 12 9-18 mmol/L Normal 01-14-20 [facility] (09342) Comment: Performed By: #### HBA1C, CB CDIF, CMP, LIPB ####[place] [address] [place] [phone] AST [Catalytic activity/Vol] 21 13-35 U/L Normal 0 01-14-2020 [facility] (75689) Comment: Performed By: #### HBA1C, CB CDIF, CMP, LIPB ####[place] [address] [place] [phone] Bilirubin [Mass/Vol] 0.4 0.2-1.3 mg/dL Normal 0 [facility] (70260) Comment: Performed By: #### HBA1C, CB CDIF, CMP, LIPB ####[facility] [place], [place] [phone] Calcium [Mass/Vol] 9.4 8.5-10.2 mg/dL Normal 01-14-2020 [facility] (13572) Comment: Performed By: #### HBA1C, CB CDIF, CMP, LIPB ####[place] [address] [place] [phone] Chloride [Moles/Vol] 111 97-105 mmol/L High 0 [facility] (26488) Comment: Performed By: #### HBA1C, CB CDIF, CMP, LIPB ####[facility] [place] [phone] CO2 [Moles/Vol] 23 22-30 mmol/L Normal 01-14-2020 [facility] (40703) Comment: Performed By: #### HBA1C, CB CDIF, CMP, LIPB ####[facility] [place], [place] [phone] Creatinine [Mass/Vol] 0.88 0.58-0.96 mg/dL Normal 01-14-20 20 [facility] (24350) Comment: Performed By: #### HBA1C, CB CDIF, CMP, LIPB ####[facility] [place], [place] [phone] eGFR- Amer. >60 Normal 01-14-2020 [facility] (96240) Comment: Performed By: #### HBA1C, CB CDIF, CMP, LIPB ####[facility] [place], [place] [phone] GFR/1.73 sq M predicted >60 mL/min/{1.73_m2} Normal 01-14-2020 [facility] among non-blacks MDRD [place] (59062) (S/P/Bld) [Vol rate/Area] Comment: Result Comment: eGFR [...] By: #### HBA1C, CB CDIF, CMP, LIPB ####[facility] [address] [place], [place] [phone] Glucose [Mass/Vol] 103 74-99 mg/dL High 01-14-2020 [facility] (71120) Comment: Result Comment: The [place] Diabetes Association (ADA) provides guidance for cutoff [...] for diagnosis of diabetes. Reference: Standards of [facility] Care in Diabetes 2016, [place] Diabetes Association. Diabetes Care. 2016.39(Suppl 1). Performed By: #### HBA1C, CB CDIF, CMP, LIPB ####[facility] [address] [place], [place] [phone] Potassium [Moles/Vol] 4.1 3.7-5.1 mmol/L Normal 01-14-20 [facility] (05171) Comment: Performed By: #### HBA1C, CB CDIF, CMP, LIPB ####[facility] [place], [place] [phone] Protein [Mass/Vol] 6.6 6.3-8.0 g/dL Normal 01-14-2020 [facility] (73856) Comment: Performed By: #### HBA1C, CB CDIF, CMP, LIPB ####[facility] [address] [place], [place] [phone] Sodium [Moles/Vol] 146 136-144 mmol/L High 01-14-2020 [facility] (78422) Comment: Performed By: #### HBA1C, CB CDIF, CMP, LIPB ####[facility] [place], [place] [phone] Urea nitrogen [Mass/Vol] 15 7-21 mg/dL Normal 01-14 [facility] (42630) Comment: Performed By: #### HBA1C, CB CDIF, CMP, LIPB ####[facility] [place], [place] [phone] cnov on 2020-01-14 CNOV Office Visit (FAMPWS) Normal 01-14-[address] [place] [address] [facility] LITASABINEBHAVESH SHI ([id number]) 1975 [facility] Date Time Provider Department ([id number]) 01/14/20 10:40 AM RA GALVEZ FAMPWS During [...] three times daily for 98 days. - [place] Doxvui-Vidwix-Nnuj Ox yanna (GOLD SOLANO MEDICATED BABY) 79-4-15 [...] tablet by mouth tw ice daily. - qpuclxu-iycekrgml-skgsbpg D3 (CALCIUM 500+D) 500 mg( 1,250mg) -200 [...] mL intramuscularly as needed (for allergic reaction.Seek [facility] care immediately after use.Disp:one 2-pack w/national sales trainer). - amoxicillin-clavulanic acid (AUGMENTIN) 875-12 5 [...] plan. See patient instructions. Ra Galvez DO [address] [place] [address] Referring Provider: RA GALVEZ [[id number]] Allergies As of Date: 01/14/2020 Noted Allergy [...] 10 days.Disp: 20 tabletRfl: 0 HGB A1C [SZYZA6K] Order #: [id number] FUTURE LIPID PANEL BASIC [SQLIPB] Order #: [id number] FUTURE COMP METABOLIC PANEL [SQCMP] Order #: [id number] FUTURE CBC + DIFF [SQCBCDIF] Order #: [id number] FUTURE meloxicam (MOBIC) 15 mg tabletTake 0.5-1 [...] 1 BottleRfl: 1 CHUCKY SCREENING W ANGIE [[id number]] Order #: [id number] FUTURE Prescriptions as of 01/14/2020 Sig: PRODIGEN [...] [F39] 08/14/2018 Convulsions (HCC) [R56.9] 09/23/2018 Other nursing home (current) drug therapy [Z79.899]08/22/2018 Severe manic [...] Abs Baso 0.06 <0.11 k/uL Normal 01-14-2020 [facility] (60121) Comment: Performed By: #### HBA1C, CB CDIF, CMP, LIPB ####[place] [address] [place] [phone] Abs Clarendon 0.42 <0.87 k/uL Normal 01-14-2020 [facility] (51895) Comment: Performed By: #### HBA1C, CB CDIF, CMP, LIPB ####[facility] [address] [place] [phone] Abs Neut 4.16 1.45-7.50 k/uL Normal 01-14-2020 [facility] (43255) Comment: Performed By: #### HBA1C, CB CDIF, CMP, LIPB ####[facility] [place] [phone] Absolute nRBC <0.01 <0.01 Normal 01-14-2020 [facility] (79250) Comment: Performed By: #### HBA1C, CB CDIF, CMP, LIPB ####[facility] [place] [phone] Basophils/100 WBC (Bld) 0.9 % Normal 2019 [facility] (75415) Comment: Performed By: #### HBA1C, CB CDIF, CMP, LIPB ####[facility] [place] [phone] DTYPE Auto Diff Normal 01-14-2020 [facility] (90266) Comment: Performed By: #### HBA1C, CB CDIF, CMP, LIPB ####[facility] [place] [phone] Eosinophils (Bld) [#/Vol] 0.12 <0.46 k/uL Normal 12-21 [facility] (35999) Comment: Performed By: #### HBA1C, CB CDIF, CMP, LIPB ####[facility] [place] [phone] Eosinophils/100 WBC (Bld) 1.9 % Normal 12-21 [facility] (10853) Comment: Performed By: #### HBA1C, CB CDIF, CMP, LIPB ####[place] [address] [place] [phone] Erythrocyte distribution 14.3 11.5-15.0 % Normal 01-14 [facility] width (RBC) [Ratio] [place] (98067) Comment: Performed By: #### HBA1C, CB CDIF, CMP, LIPB ####[facility] [place], [place] [phone] Hematocrit (Bld) [Volume 43.1 36.0-46.0 % Normal 01-14 [facility] fraction] [place] (52710) Comment: Performed By: #### HBA1C, CB CDIF, CMP, LIPB ####[facility] [place] [phone] Hemoglobin (Bld) 13.6 11.5-15.5 g/dL Normal 01-14-2020 [facility] [Mass/Vol] [place] (29378) Comment: Performed By: #### HBA1C, CB CDIF, CMP, LIPB ####[facility] [place] [phone] Lymphocytes (Bld) [#/Vol] 1.63 1.00-4.00 k/uL Normal 12-21 [facility] (59966) Comment: Performed By: #### HBA1C, CB CDIF, CMP, LIPB ####[facility] [address] [place], [place] [phone] Lymphocytes/100 WBC (Bld) 25.4 % Normal 12-21 [facility] (34709) Comment: Performed By: #### HBA1C, CB CDIF, CMP, LIPB ####[facility] [address] [place], [place] [phone] MCH (RBC) [Entitic mass] 30.7 26.0-34.0 pG Normal 01-14 [facility] (60997) Comment: Performed By: #### HBA1C, CB CDIF, CMP, LIPB ####[facility] [place], [place] [phone] MCHC (RBC) [Mass/Vol] 31.6 30.5-36.0 g/dL Normal 01-14-20 [facility] (65508) Comment: Performed By: #### HBA1C, CB CDIF, CMP, LIPB ####[facility] [address] [place], [place] [phone] MCV (RBC) [Entitic vol] 97.3 80.0-100.0 fL Normal 01-14 [facility] (83986) Comment: Performed By: #### HBA1C, CB CDIF, CMP, LIPB ####[facility] [address] [place], [place] [phone] Monocytes/100 WBC (Bld) 6.6 % Normal 2019 [facility] (17684) Comment: Performed By: #### HBA1C, CB CDIF, CMP, LIPB ####[facility] [address] [place], [place] [phone] Neutrophils/100 WBC (Bld) 65.2 % Normal 12-21 [facility] (63013) Comment: Performed By: #### HBA1C, CB CDIF, CMP, LIPB ####[place] [address] [place], [place] [phone] NRBCs 0.0 0 /100 WBC Normal 01-14-2020 [facility] (94510) Comment: Performed By: #### HBA1C, CB CDIF, CMP, LIPB ####[place] [address] [place], [place] [phone] Platelet mean volume 10.5 9.0-12.7 fL Normal 0 [facility] (d) [Entitic vol] [place] (78151) Comment: Performed By: #### HBA1C, CB CDIF, CMP, LIPB ####[place] [address] [place], [place] [phone] Platelets (Bld) [#/Vol] 250 150-400 k/uL Normal 2019 [facility] (12834) Comment: Performed By: #### HBA1C, CB CDIF, CMP, LIPB ####[place] [address] [place], [place] [phone] RBC (Bld) [#/Vol] 4.43 3.90-5.20 m/uL Normal 01-14-2020 [facility] (02854) Comment: Performed By: #### HBA1C, CB CDIF, CMP, LIPB ####[place] [address] [place], [place] [phone] WBC (Bld) [#/Vol] 6.41 3.70-11.00 k/uL Normal 01-14-2020 [facility] (49566) Comment: Performed By: #### HBA1C, CB CDIF, CMP, LIPB ####[place] [address] [place], [place] [phone] urine culture on 08-01-20 Bacteria Sp. Request/Comment: - Specimen received in preservative Critically 01-08-2020 [place] identified Cx Nom abnormal Cl inic (U) Culture Result - <10,000 CFU /ml Lactose negative gram negative bacilli --> ABNORMAL ALERT Insignificant colony count. No further workup. --> ABNORMAL ALERT [place] (68998) Comment: Performed By: #### URCUL ### #[facility] [address] [place], [place] [phone] progress on 2019-12 PROGRESS HNO ID: [id number] Normal 01-08-2020 [facility] Author: Nery Canela [place] ([id number]) Service: ? Author Type: Physician Type: Progress [...] for 98 days. 90 capsule 1 - [place] Yrlrnb-Expczx-Dqsh Oxide (GOLD SOLANO MEDICATED BABY) 7 9-4-15 [...] tw ice daily. 60 tablet 11 - bjbzjmj-alpicsckk-nalcacz D3 (CALCIUM 500+D) 500 mg(1,250m g) -200 [...] nt medical care immediately after use.Disp:one 2-pack w/national sales trainer). 1 Eac h 1 No current [...] name below, I, Vinicio Treviño, attest that [facility] s documentation has been prepared under the [...] PM cnov on 2020-01-08 [facility] Normal 01-08-20 [place] BHAVESH Garza ([id number]) 1975 [facility] [place] Date Time Provider Department (16625) 01/08/20 1:45 PM NERY CANELA [facility] During your visit today, we recorded the [...] for 98 days. 90 capsule 1 - [place] Hnvbbq-Xqswyg-Womu Ox yanna (GOLD SOLANO MEDICATED BABY) 79-4-15 [...] tw ice daily. 60 tablet 11 - uuutdfm-wfjnkkuha-dcamars D3 (CALCIUM 500+D) 500 mg( 1,250mg) -200 [...] mL intramuscularly as needed (for allergic reaction.[facility]ek [facility] medical care immediately after use.Disp:one 2-pack w/national sales trainer). 1 Each 1 No current facility-administered [...] direction and in the pre sence of eNry Canela MD. Electronically Signed:hugo Hutchinson, January 08 [...] stones [Z87.442] Order(s):URINE CULTURE [SQURCUL] Order #: [id number] XR ABDOMEN 1V SUPINE [[id number]] Order #: [id number] FUTURE Prescriptions as of 01/08/2020 Sig: PRODIGEN [...] [F39] 08/14/2018 Convulsions (HCC) [R56.9] 09/23/2018 Other nursing home (current) drug therapy [Z79.899]08/22/2018 Severe manic [...] * * *Final Report* * * Normal [facility] SUPINE DATE OF EXAM: Dec 30 2019 12:15PM [place] ([id number]) WRX 5289 - XR ABDOMEN 1V SUPINE [...] and similar to prior study of 019 Balance Wheel Screw Hole Driller: [facility] Transcribe Date/Time: Dec 30 2019 2:43P Dictated by : CAMDEN SHAFFER MD This examination was interpreted and the report reviewed and electronically signed by: CAMDEN SHAFFER MD on Dec 30 2019 2:44PM EST [id number] progress on 2019-12 PROGRESS HNO ID: [id number] Normal 12-30-2019 [facility] Author: Beverly Morales) [facility] [place] (68519) Service: ? Author Type: Nurse Practitioner Type: [...] h three times daily for 98 days. [place] Yktyzi-Escneo-Kiri Oxide (GOLD SOLANO MEDICATED BABY) 79- 4-15 [...] 1 tablet by mouth twic e daily. bodixhd-xhkeyrhkz-momieqc D3 (CALCIUM 500+D) 500 mg(1,250mg) -200 unit [...] nt medical care immediately after use.Disp:one 2-pack w/national sales trainer). PRODIGEN 31 billion cell cap Take [...] Patient agreeable to treatment plan. Beverly Villegas APRN.CONDUIT BENDER PROGRESS HNO ID: [id number] Normal 12-30-2019 [facility] Author: Jerri (Rt) Derrell Carvajal [place] ([id number]) Service: ? Author Type: Manager Economic Type: Progress Notes Filed: 12/30/2019 12:16 PM [...] 2019-12-30 CNOV Office Visit (UCWSTR) Normal 12-30-19 [facility] BHAVESH BEAULIEU ([id number]) 1975 [facility] Date Time Provider Department ([id number]) 12/30/19 5:45 PM BEVERLY V[place]LEGAS (SHARATH) UCWSTR [...] mouth three times daily for 98 days. [place] Bdxujm-Fvdfgg-Zztg Oxid e (GOLD SOLANO MEDICATED BABY) 79-4-15 [...] 1 tablet by mouth twic e daily. dwlvkcn-vzdkwpfzk-wubpapo D3 (CALCIUM 500+D) 500 mg(1,250mg) -200 unit [...] m edical care immediately after use.Disp:one 2-pack w/national sales trainer). PRODIGEN 31 billion cell cap Take [...] care provider may recommend treat ment with jrio-fgv-oengjla medications for cold and allergy, nasal saline [...] nasal congestion, runny nose, post-lidia al drip (vyrn-kj-htut release of nasal fluid into the back [...] general, cold-related symptoms disappear within 1 w [employer]. The point at which a normal cold [...] Children and Adults. Clinical Infectious D iseases; 2012;54(8):0686-4349. ? Maite Ignacio, Sinusitis: Allergies, antibiotic s, aspirin, asthma. [facility] Journal of Medicine 2006; 73(7): 671-678 ? [employer] of Allergy and Infectious Diseases. Sin usitis (Sinus Infection) Accessed 09/28/2015. ? [place] Academy of Allergy, Asthma, and Immunology. Sinus itis Accessed 09/28/2015. ? [place] College of Allerg y, Asthma AND Immunology. Sinus Information Accessed 09/28/2015. ? Renard Richter., Prevalence of migraine in patients with a history of self-reported or physician-diagnosed sinus hea dache. [employer] Manager Med, 2004. 164(16):1769-62. ? Copyright 0689-3596 [facility]. All rights reserved. Referring Provider: [...] [F39] 08/14/2018 Convulsions (HCC) [R56.9] 09/23/2018 Other nursing home (current) drug therapy [Z79.899]08/22/2018 Severe manic [...] health care provider may recommend treatment with otxq-lbj-tpgssvv medications for cold and allergy, nasal saline [...] nasal congestion, runny nose, post-lidia al drip (gwki-hj-jyto release of nasal fluid into the back [...] Children and Adults. Clinical Infectious D iseases; 2012;54(8):8293-7610. ? Maite Ignacio, Sinusitis: Allergies, antibiotics, aspirin, asthma. [facility] Journal of Medicine 2006; 73(7): 671-678 ? [employer] of Allergy and Infectious Diseases. Sin usitis (Sinus Infection) Accessed 09/28/2015. ? [place] Academy of Allergy, Asthma, and Immunology. Sinus itis Accessed 09/28/2015. ? [place] College of Allergy, Asthma AND Immunology. Sinus Information Accessed 09/28/2015. ? Renard Richter., Prevalence of migraine in patients with a history of self-reported or physician-diagnosed sinus headache. [employer] Med, 2004. 164(16):1769-72. ? Copyright 7649-4549 [facility]. All r ights reserved. Prescriptions ordered this encounter Disp Refills Start End DOXYCYCLINE MONOHYDRATE 100 MG TABLET 20 t* 0 12/30/2019 Cmt: May transfer to Hyclate if less expensive. Route: ORAL Sig: Take 1 tablet by mouth twice daily for 10 days. Encounter Status:Closed by BEVERLY VILLEGAS CNP on 12/30/19 progress on 2019-11 PROGRESS HNO ID: [id number] Normal 12-05-2019 [facility] Author: Ninfa Mcdonald [place] ([id number]) Service: ? Author Type: Physician Type: Progress [...] GATA3 (L50-823) negative AE1-3 (AE1/AE3/PCK26) negative CK8 (72ivwjI42) negative Vimentin (V9) positive Macro (HAM-56) positive [...] three times daily for 98 days. - [place] Rqurcd-Quogex-Uwgs Oxide (GOLD SOLANO MEDICATED BABY) 7 9-4-15 [...] tablet by mouth tw ice daily. - arafvnw-ypeoflgku-akovusb D3 (CALCIUM 500+D) 500 mg(1,250m g) -200 [...] nt medical care immediately after use.Disp:one 2-pack w/national sales trainer). ALLERGIES: Beta Blockers [Beta-Blockers (Beta-Adrenergic Blo [...] - denies chest pain, denies history of [place] Pulmonary - has shortness of breath with [...] 2019-12-05 CNOV Office Visit (SWS) Normal 12-05-19 [place] [facility] BHAVESH BEAULIEU ([id number]) 1975 [facility] Date Time Provider Department ([id number]) 12/05/19 10:40 AM NINFA MCDONALD During your [...] GATA3 (L50-823) negative AE1-3 (AE1/AE3/PCK26) negative CK8 (67xfqjV83) negative Vimentin (V9) positive Macro (HAM-56) positive [...] three times daily for 98 days. - [place] Irvrit-Yxaifs-Nbus Ox yanna (GOLD SOLANO MEDICATED BABY) 79-4-15 [...] tablet by mouth tw ice daily. - ivvejai-dsadblskj-ymgcnad D3 (CALCIUM 500+D) 500 mg( 1,250mg) -200 [...] mL intramuscularly as needed (for allergic reaction.[facility] care immediately after use.Disp:one 2-pack w/national sales trainer). ALLERGIES: Beta Blockers [Beta-Blockers (Beta-Ad renergic [...] - denies chest pain, denies history of [place] Pulmonary - has shortness of breath with [...] Ninfa Mcdonald MD Referring Provider: RA GALVEZ [[id number]] Allergies As of Date: 12/05/2019 Noted Allergy [...] [F39] 08/14/2018 Convulsions (HCC) [R56.9] 09/23/2018 Other nursing home (current) drug therapy [Z79.899]08/22/2018 Severe manic [...] 2019-12-03 CNOV Office Visit (FAMPWS) Normal 12-03-[address] [place] [address] [facility] BHAVESH BEAULIEU ([id number]) 1975 [facility] Date Time Provider Department ([id number]) 12/03/19 10:00 AM LUIS NURSE WSTR FAMPWS During your visit today, we recorded the following informati on about you: Marie Angel LPN 12/03/2019 10:31 AM Signed Pt identified by name and birthdate. Allergy injections given subcutaneously. December 03, 2019 10:08 AM Patient states they did not take antihistamine. Immunotherapy Order written on: 09/04/[address] 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 Ramirez Segura [place] [phone] If patient has asthma, patient states symptoms [...] location. Marie Doan LPN Encounter Status:Closed by MARIE ANGEL LPN on 12/03/19 progress on 2019-11 PROGRESS HNO ID: [id number] Normal 12-02-2019 [facility] Author: Derrell Whitney (Tech) [place] ([id number]) Service: ? Author Type: Manager Economic Type: Progress Notes Filed: 12/02/2019 4:31 PM [...] PM chucky diagnostic rt o n 2019-12-02 [facility] * * *Final Report* * * Normal 12-02-2019 [facility] DATE OF EXAM: Dec 02 2019 1:18PM [facility] 0626 - [facility] RT / (24000) PROCEDURE REASON: Abnormal ultrasound of breast * * * * Physician Interpretation * * * * RESULT: #[id number] - [facility] RT UNILATERAL RIGHT DIGITAL DIAGNOSTIC MAMMOGRAM [...] 04/07/2019 mammogram, mammogram, and 11/14/2016 mammogram - [facility]. There are scattered fibroglandular elements in right breast. Prior mammographic finding is no longer seen in the right br east. There are biopsy clips in the right breast in the superior medial quadrant. IMPRESSION: POST PROCEDURE MAMMOGRAM FOR MARKER PLACEMENT Celestino youngblood/tierney:12/02/2019 13:28:56 Medical Assistant Dermatology(s): Lilia Galvan, RT(R)(M), [facility] [...] Health, Family Medicine, and Medical/Surgical Oncology, the [facility] has carefully reviewed the data and reached [...] providers when to sto p screening mammograms. Balance Wheel Screw Hole Driller: Tierney Transcribe Date/Time: Dec 02 2019 1:19P Dictated by: CELESTINO ARANGO MD This examination was interpreted and the report reviewed and electronically signed by: CELESTINO ARANGO MD on Dec 02 2019 1:28PM EST [id number] obsolete on 2019-11 OBSOLETE Refill (FAMPWS) Normal 11-19-2019 Kade ferris [facility] BHAVESH BEAULIEU ([id number]) 1975 [facility] Time Provider Department ([id number]) 11/19/19 RA GALVEZ FAMPWS During your visit [...] No Please review and advise. 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 [place] Ibgcsi-Ccfikg-Aqmu Oxide (GOLD * 1 Bacilio* 3 07/14/20192019 Route: TOPICAL Sig: Apply 1 application to affected area twice daily as needed (intertrigo). Disc: Reason for discontinue is not on file. Encounter Status:Closed by RA GALVEZ DO on 11/21/19 progress on 2019-10 PROGRESS HNO ID: [id number] Normal 11-06-2019 [facility] Author: Ramirez Block [place] ([id number]) Service: ? Author Type: Physician Type: Progress [...] in high school. 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 Older daughter is a senior at [employer] [...] obst ructive sleep apnea who [facility]. Her last visit in is office [...] h three times daily for 98 days. [place] Jiieuk-Yitryp-Fsde Oxide (GOLD SOLANO MEDICATED BABY) 79- 4-15 % powd Apply 1 application to affected area twice daily as needed ( intertrigo). idegtof-xpakymvjt-bjwjlcv D3 (CALCIUM 500+D) 500 mg(1,250mg) -200 unit [...] nt medical care immediately after use.Disp:one 2-pack w/national sales trainer). ALLERGIES: Allergies As of Date: 11/06/2019 [...] on first floor right above basement. Erin: Qamk-ld-twgk carpeting Dust mite controls: Dust mite controls [...] in 4-6 months- patient will return sooner [facility] ld new symptoms or problems arise. 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 Plays [employer] in [employer]. Older daughter is a senior at [employer], studying [employer] education, currently student teaching. (09/28/2014: This is [...] She was on venom immunotherapy beginning in [facility] 2006 and reached the maintenance dose in [...] mouth three times daily for 98 days. [place] Ifdsnq-Qxpnlc-Kawr Oxid e (GOLD SOLANO MEDICATED BABY) 79-4-15 % powd Apply 1 application to affected area twice daily as needed (intertri go). fhhdtfm-winhfvvcw-vkeztcf D3 (CALCIUM 500+D) 500 mg(1,250mg) -200 unit [...] m edical care immediately after use.Disp:one 2-pack w/national sales trainer). ALLERGIES: Allergies As of Date: 11/06/2019 [...] first floor righ t above basement. 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 [Z79.899]08/22/2018 Severe manic bipolar [...] on 2019-10 OBSOLETE Procedure (PULMWS) Normal 10-30-2019 [place] [facility] BHAVESH BEAULIEU ([id number]) 1975 [facility] Date Time Provider Department ([id number]) 10/30/19 11:30 AM RESPIRATORY THERAPIST [facility] WSTRPULMWS During your visit today, we recorded the following informati on about you: Referring Provider: RAMIREZ BLOCK [[id number]] Allergies As of Date: 10/30/2019 Noted Allergy [...] respiratory abnormalities [R06.0 0, R06.89] Order(s):LUNG VOLUMES [8905711] Order #: [id number] Prescriptions as of 10/30/2019 Sig: MOMETASONE-FORMOTEROL HFA [...] Take 1 capsule by mouth three* CORN GOMJEW-NMXDPC-TKTP OXIDE* Apply 1 application to affect * [...] [F39] 08/14/2018 Convulsions (HCC) [R56.9] 09/23/2018 Other nursing home (current) drug therapy [Z79.899]08/22/2018 Severe manic [...] on 10/30/19 OBSOLETE Procedure (PULMWS) Normal 10-30-2019 [place] [facility] BHAVESH BEAULIEU ([id number]) 1975 [facility] Date Time Provider Department ([id number]) 10/30/19 11:15 AM RESPIRATORY THERAPIST [facility] WSTRPULMWS During your visit today, we recorded the following informati on about you: Pulse Respiration Weight Height 104/minute 16/minute 118.8 kg 1.575 m Referring Provider: RAMIREZ BLOCK [[id number]] Allergies As of Date: 10/30/2019 Noted Allergy Reaction BETA BLOCKERS (BETA-BLOCKERS (BET*2013 15 - Contraindication-Medical Hsarma* Comments: Avoid use of beta blockers and [...] [R06.0 0, R06.89] Order(s):LUNG DIFFUSION CAPACITY (DLCO) [[id number]] Order #: [id number] Prescriptions as of 10/30/2019 Sig: MOMETASONE-FORMOTEROL HFA [...] Take 1 capsule by mouth three* CORN MSMQJI-WNPKEO-HZKB OXIDE* Apply 1 application to affect * [...] [F39] 08/14/2018 Convulsions (HCC) [R56.9] 09/23/2018 Other nursing home (current) drug therapy [Z79.899]08/22/2018 Severe manic [...] 10/30/19 progress on 2019-10 PROGRESS HNO ID: [id number] Normal 10-22-2019 [facility] Author: Meryl (Automatic Machines Supervisor) Codey Hallman ([id number]) Service: ? Author Type: Nurse Practitioner Type: [...] three times daily for 98 days. - [place] Qkdifv-Uxpzob-Ddrb Oxide (GOLD SOLANO MEDICATED BABY) 7 9-4-15 % powd Apply 1 application to affected area twice daily as needed ( intertrigo). - oddhsvq-bdkfeltky-ebqgrbu D3 (CALCIUM 500+D) 500 mg(1,250m g) -200 [...] nt medical care immediately after use.Disp:one 2-pack w/national sales trainer). No current facility-administered medications for this [...] needed for worsening /no improvement. Meryl Alegre APRN.CONDUIT BENDER cnov on 2019-10-22 CNOV Office Visit (FAMPWS) Normal 10-22-20 [facility] BHAVESH BEAULIEU ([id number]) 1975 [place] Date Time Provider Department ([id number]) 10/22/19 1:00 PM [facility]GRE [facility]CONDUIT BENDER[facility] today, we recorded [...] three times daily for 98 days. - [place] Xublbu-Ngpcxh-Pxic Ox yanna (GOLD SOLANO MEDICATED BABY) 79-4-15 % powd Apply 1 application to affected area twice daily as needed (intert blaine). - pxtyifr-qiupmqsln-lmmohtu D3 (CALCIUM 500+D) 500 mg( 1,250mg) -200 [...] mL intramuscularly as needed (for allergic reaction.[facility] immediately after use.Disp:one 2-pack w/national sales trainer). No current facility-administered medications for this [...] needed for wor sening/no improvement. Meryl Alegre APRN.CONDUIT BENDER Referring Provider: SELF [[id number]] Allergies As of [...] Take 1 capsule by mouth three* CORN IAZVNV-VBXOKG-QTIH OXIDE* Apply 1 application to affect * [...] [F39] 08/14/2018 Convulsions (HCC) [R56.9] 09/23/2018 Other nursing home (current) drug therapy [Z79.899]08/22/2018 Severe manic [...] Status:Closed by MERYL ALEGRE CNP on 10/22/19 [facility] Office Visit (FAMPWS) Normal 10-22-20 [facility] BHAVESH BEAULIEU ([id number]) 1975 [facility] Date Time Provider Department ([id number]) 10/22/19 10:00 AM [facility] NURSE LOUISA FAMPWS During your visit today, we recorded the following informati on about you: Marie Angel LPN 10/22/2019 10:23 AM Addendum Pt identified by name and birthdate. Allergy injections given subcutaneously. October 22, 2019 9:58 AM Patient states they did not take antihistamine. Immunotherapy Order written on: 09/04/[address] Ramirez Segura [place] [phone] If patient has asthma, patient states symptoms [...] Rl Abbott LPN Referring Provider: RAMIREZ BLOCK [[id number]] Allergies As of Date: 10/22/2019 Noted Allergy [...] Take 1 capsule by mouth three* CORN LKUAUD-UEUHQE-FHFN OXIDE* Apply 1 application to affect * [...] [F39] 08/14/2018 Convulsions (HCC) [R56.9] 09/23/2018 Other nursing home (current) drug therapy [Z79.899]08/22/2018 Severe manic [...] written on: 09/04/[address] Ramirez Segura [place] [phone] If patient has asthma, patient states symptoms [...] 10/22/19 progress on 2019-09 PROGRESS HNO ID: [id number] Normal 10-10-2019 [facility] Author: Karishma (Jamison) Benny Hallman ([id number]) Service: ? Author Type: Physician Hairspring Fabrication Supervisor Type: Progress Notes Filed: 10/10/2019 6:27 PM [...] Episodic Mood Disorder (Hcc) Convulsions (Hcc) Other Assisted (Current) Drug Therapy Severe Manic Bipolar I [...] al. No oropharyngeal exudate, posterior oropharyngeal edema, customer training specialist ior oropharyngeal erythema or tonsillar abscesses. Tenderness/muscle [...] CNOV Office Visit (UCWSTR) Normal 10-10-20 19 [place] [facility] BHAVESH BEAULIEU ([id number]) 1975 [facility] Date Time Provider Department ([id number]) 10/10/19 5:45 PM KARISHMA IRBY (JAMISON) UCWSTR [...] Episodic Mood Disorder (Hcc) Convulsions (Hcc) Other Train Reservation Clerk (Current) Drug Therapy Severe Manic Bipolar I [...] of Otolaryngology ? Head AND Neck Surgery [facility] * [address]. * [place], [place] [address] * Pain AND the TMJ What is [...] a sliding joint, rather than the usual uxuq-efs-rmjusm type joint, (such as the hip and [...] at the side of the head (the scientology), th e cheek, the lower jaw, and the teeth. Some people have attributed migraine, sinus trou ble and backaches to the TMJ, but that would be difficult to explain with our present-day knowledge of anatomy and physiology. A very common focus of pain is in the ear. Many patients com e to the medical research assistant quite convinced t heir pain is from [...] bruxism (grinding your teeth while sleeping.) 1994. [employer]-Head and Neck [facility] ry, Inc. This leaflet is published as a public service. The ma terial may be freely used for noncommercial purposes so long as attrib ution is given to the [employer]olaryngology-Head and N [facility] [place] [address] Referring Provider: SELF [200] Allergies As of [...] Take 1 capsule by mouth three* CORN WQDTJY-NKYSNU-WAAX OXIDE* Apply 1 application to affect * [...] [F39] 08/14/2018 Convulsions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 02/18/2018Incision/Procedure Start Time: 11:11 AMIncision Close/Procedure End Time:Surgeon(s)/Proceduralist(s) and Hairspring Fabrication Supervisor(s):Surgeon(s) and Role: * Nery Canela - Primary * Casey (Res) [place] - Resident - AssistingProcedure(s):Cystoscopyright Ureteroscopy with laser lithotripsyInsertion of right indwelling JJ ureteral stentPhysician fluoroscopy time < 1hrAnesthesia: Monitored Anesthesia CareOperative Indications: This is a 42 year old year old female with a edtpz0gp distal ureteral calculus and renal colic who [...] 18, 2018 : 11:42 AM PAGER/CONTACT #: [phone] nursing prog on 06-22-02 NURSING HNO ID: [id number]: Sa wolff (Rn) Ashley RNService: (none)Author Type: Normal 02-18-2018 [facility] PRO Registered NurseType: Mouna madrid Progress NoteFiled: 02/18/2018 3:30 PMNote Text: Hospital Nursing Progress NotePatient Name: Bhavesh MerrillnMRN: [id number] ([id number]) Location: Room/bed info not found Daily Note:Visitor at bedside, denies pain, ta aj water, crackers withoutnausea. Up to bathroom, voided QS pink colored urine, states no pain withurination.1300-ambulated to bathroom, voided witho ut pain, urine pink in color.This note was completed by: April Ramirez RN NURSING HNO ID: [id number]: Eduardo pena (Rn) JENNIE Adlerervice: NursingAuthor Normal 02-18-2018 [facility] Type: Registered NurseType: Nursing Progress NoteFiled: 02/18/2018 9:36 AMNote Hospital Text:PRE OP LEARNING ASSESSMENTPROCEDURE/SURGERY: SURG BARRETT: cystourethroscopy (16528) lithotripsy pyeloscopyREADINESS TO LEARNCOGNITIVE ABILITY: A lert and orientedMOTIVATION TO LEARN: InterestedF AMILY SUPPORT: High - Very involved in pt carePATIENT LEARNS BEST BY: Individual InstructionWritten Instruction - Hand-outsVerbal InstructionF ACTORS AFFECTING LEARNING: NonePHYSICAL LIMITATIONS AFFECTING LEARNING: NoneElectronically Signed By: Jimena skaggs RN In Department: [facility] PREADMISSION OP history physical on 2018-02-18 HISTORY PHYSICAL HNO ID: [id number]: Normal 02-18-2018 [facility] ([id number]) UrologyAuthor Type: PhysicianType: HANDPFiled: 02/18/2018 10:07 AMNote [...] February 18, 2018 : 10:06 AM PAGER: [phone] calculi analysis on 2018-02-18 Calculus Type No Information Provided Normal [facility] (92718) Comment: Performed By: #### CSA ####C [facility] [place], [place] [phone] Note (NOTE) Normal 02-18-2018 [facility] (14934) Comment: Result Comment: Calculus Col or: BROWNCalculus Size & Weight: MULTIPLE PIECES, 0.0040 GRAMSComposit ion: CALCIUM OXALATE MONOHYDRATE - 70% CALCIUM OXALATE DIHYDRATE - 20% LOAN R COMPONENTS - 10%This test was developed and its performance characterist icsdetermined by the [facility] [employer] ([facility]).It has not been cleared or approved by the [facility] is regulated under CLIA as qualified to performhigh-complexity te sting.This test is used for clinical purposes. It should not be regarded as investigational or for research. Performed By: #### CSA ####C [facility] [address] [place], [place] [phone]- [phone] anes preop on 02-18 ANES PREOP HNO ID: [id number]: Glendy Conklin al 02-18-2018 [facility] HoytService: Anest[facility]iologySol[facility] Type: AnesthesiologistType: ([id number]) Anesthesia PreOpFiled: 02/18/2018 9:25 AMNote Text: ANESTHESIOLOGY [...] results:Hematocrit 46.2 10/10/2016Potassium 4.5 10/10/2016ANES DOS/PREOP NOTE:Vitals: 077127GU: 177/86Pulse: 108Resp: 18Temp: 36.5 ?C (97.7 ?F)TempSrc: [...] reaction.Seek emergent medicalcare immediately after use.Disp:one 2-pack w/national sales trainer).ketotifen fumarate (ZADITOR) 0.025 % (0.035 %) [...] reaction.Seek emergent medicalcare immediately after use.Disp:one 2-pack w/national sales trainer). Disp: 1 Each Rfl: 1ketotifen fumarate [...] 1-2 mg injection (XYLOCAINE) 0.1-0.2 mLINTRADERMAL PRN [facility] Lurialactated ringers infusion 5-30 mL/hr INTRAVENOUS CONTINUOUS Gabriel SLuria[START ON 02/19/2018] ceFAZolin iv piggyback 2 g in D5W (iso-osmotic) 100 mL(ANCEF) 2 g INTRAVENOUS Automation Machine Builder to OR [facility] Luriascopolamine 1 mg over 3 [...] February 18, 2018 : 9:23 AM CSN: [id number] anes post on 02-18 ANES POST HNO ID: [id number]: Samantha Muñoz 02-18-2018 [facility] CityaristidesService: ([id number]) AnesthesiologyAuthor Type: AnesthesiologistType: Anesthesia PostOpFiled: 02/18/2018 3:00 [...] on 201 06-21-30 NURSING PROG HNO ID: [id number]: Jimena Conklin formerly [facility] 02-15-2018 [facility] (Rn) JENNIE Gordonervice: [facility] (02404) (none)Author Type: Registered NurseType: Nursing Progress NoteFiled: [...] you for your procedure at this surgery center:[facility]: [phone] -- [address] [address].Please read below carefully for your personalized instructions.Blood [...] surgery.- NO jewelry, body piercings, makeup, nail mexican, hairpins or contactsare to be worn the [...] Procedures: - YOU MUST HAVE A RESPONSIBLE CASE FINISHING MACHINE ADJUSTER TAKE YOU HOME. A VACUUM CLOSING MACHINE OPERATOR OR CABDRIVER CANNOT BE MADE A RESPONSIBLE CASE FINISHING MACHINE ADJUSTER.- We recommend that a responsible person stays with you overnight to takecare of you.- You cannot stay in a hotel alone after outpatient surgery. You will notbe permitted to have your surgery, if you do not have someone to take careof you. Arrival Time for Surgery: -You will receive a call from [facility] the afternoonbefore surgery after 2:30 pm (or Sunday for Sunday surgery) for ascheduled arrival time.- If you have not heard by 4 pm, please [facility]at [phone].Please be aware that emergency situations arise, which may delay or changeyour surgical time. If this happens, we will notify you as soon aspossible and regret any inconvenience.JENNY Choudhuryre-op Considerations:Patient states that she has a history of YOBANI - does not currently haveC-pap.Chart Check:Camille Gordon RNMarjimmy 2017 11:19 AM hosp on 2018-02-15 HOSP Patient:Bhavesh Beaulieu KMRN: Height:5' [facility]2018 [facility] 3(1.6 m)Weight:259 lb (117.482 (69339) kg)Outpatient Medications as of 02/18/18:FLUoxetine (PROZAC) 20 mg capsuleFLUoxetine HCl (PROZAC) 40 mg capsuletamsulosin ER (FLOMAX) 0.4 mg ag42apqNAUmm (ULTRAM) 50 mg tabletciprofloxacin HCl (CIPRO) 500 [...] to pollen [J30.1]Right ureteral calculus [N20.1]Allergies:Environmental Allergies [Other]Owsts-LneqScjrm-Wtsxxv HornetVenom-Yellow Jacket ProteinDate Verified: 02/18/18Lab ValuesNo results within the last 30 days for the following basenames: K,HCTProgress Notes ([facility] 1):Elgin Reid 02/14/2018 4:43 PM SignedUrology ClinicMarch [...] education: Number of children: 2Occupational 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 Body weight 111.58 kg 07-14-[facility] ([id number]) Encounters Date Type Reason Provider Location 02-26-2018 - Ambulatory [facility]EL S LUR[facility] 02-27-2018 GABRIEL S LURIA ([id number]) 02-18-2018 - Ambulatory GABRIEL S LURIA [facility] 03-20-2018 GABRIEL S LURIA ([id number]) 07-31-2018 - Emergency department MINERVA CARVAJAL Fa cility:B 07-31-2018 patient visit RA GALVEZ 07-19-2018 - Emergency department [facility] Facility:B 07-19-2018 patient visit Ignacio GALVEZ 04-18-2018 - Emergency department CHIDI QUINTANA Facility:B 04-19-2018 patient visit P LENNY 07-17-2020 Follow-up encounter Ra Galvez [facility] Carol Comment: RE: Visit Follow Up [...] - Patient encounter Gabriel S [facility]uria [facility] 07-27-2020 procedure 07-20-2020 - Patient encounter History of Ct [facility] Cat Scan 07-20-2020 procedure calculus of (I-Stat) kidney Comment: Radiology CT 07-17-2020 - Patient encounter Ra [facility] 07-17-2020 procedure Galvez 07-14-2020 - Patient encounter Patient encounter Ra Chavez [facility] Medicine 07-14-2020 procedure status Lenny Medina Comment: [...] 07-02-2020 - Patient encounter History of Xr [facility] [place] Radiolog y 07-02-2020 procedure calculus of kidney Mob Gabriel S Luria Comment: Radiology XR 06-28-2020 - Patient encounter New daily Mario (Automatic Machines Supervisor) Family De dicine 06-28-2020 procedure persistent Cecilia Carol headache Comment: RE: [facility]gent [facility] 06-26-2020 - 06-26-2020 Patient encounter procedure Sh eila A Block Allergy Comment: RE: [facility]-Urgent [facility] 08-25-2020 - 08-25-2020 Refill Intertrigo Ra Galvez [facility] Carol Comment: Refill Request 07-27-2020 Results Only [facility] S L[facility] 07-02-2020 Results Only [facility] S L[facility] 07-20-2020 - Subsequent hospital [facility] 07-20-2020 visit by physician 07-02-2020 - Subsequent hospital [facility] 07-02-2020 visit by physician 07-14-2020 - [facility] consultation with patient 07-09-2020 - Telemedicine Gabriel S Luria [facility] 07-09-2020 consultation with patient 08-10-2020 - Telephone encounter Ramirez Carrillo Block Allergy 08-10-2020 Comment: Immunotherapy 07-27-2020 - 07-27-2020 Telephone encounter Ramirez Carrillo Maite ain Allergy Comment: JAMISON epi pen Procedures Procedure Name Date Provider Location PERIOD & VOLUME 07-27-2020 [facility] ([address]) Ct abdomen & pelvis w/o 07-20-2020 [facility] ([id number]) contrast material Bacteria identified Cx Nom 07-07-2020 [facility] ([id number]) (U) URINALYSIS, DIPSTICK ONLY 07-02-2020 [facility] ([id number]) Radiologic exam abdomen 1 07-02-2020 [facility] ([id number]) view Mammography 04-19-2020 - [facility] ([id number]) 04-19-2020 Plan of Treatment Plan Description Date Location DTAP,TDAP,TD (2 - Td) DTAP,TDAP,TD (2 - Td) 12-21-2025 - [facility] 12-21-2025 ([id number]) ANNUAL PCP TEAM ANNUAL PCP TEAM CHRONIC 07-14-2021 [facility] CHRONIC DISEASE VISIT DISEASE VISIT 07-14-2021 ([id number]) ANNUAL PCP TEAM ANNUAL PCP TEAM CHRONIC 06-24-2021 [facility] CHRONIC DISEASE VISIT DISEASE VISIT 06-24-2021 ([id number]) MAMMOGRAM MAMMOGRAM 04-19-2021 - [facility] 04-19-2021 ([id number]) HGB A1C HGB A1C Lab Routine IFG 01-14-2021 - [facility] (impaired fasting 07-14-2021 ([id number]) glucose) Expected: 01/14/2021 (Approximate), Expires: 07/14/2021 Comment: Expected: 01/14/2021 (Approx imate), Expires: 07/14/2021 HPV TESTING HPV TESTING 12-21-2020 - [facility] 12-21-2020 ([id number]) PAP TESTING PAP TESTING 12-21-2020 - [facility] 12-21-2020 ([id number]) INFLUENZA (#1) INFLUENZA (#1) 2020 - [facility] 07-20-2020 ([id number]) HEPATITIS C SCREENING HEPATITIS C SCREENING 1993 - [facility] 1993 ([id number]) HIV SCREENING HIV SCREENING 1993 - [facility] 1993 ([id number]) URINE CULTURE URINE CULTURE [facility] Microbiology Routine ([id number]) Right ureteral calculus 07/07/2020 2:38 PM EDT CALCIUM TOTAL BLD CALCIUM TOTAL BLD Lab 07-09-2021 [facility] Routine History of (70956) kidney stones Microscopic hematuria 1 Occurrences starting 07/09/2020 until 07/09/2021 Comment: 1 Occurrences starting 07/09 until 07/09/2021 CBC + DIFF CBC + DIFF Lab Routine IFG (impaired 07-14-2021 [facility] ([id number]) fasting glucose) 1 Occurrences starting 07/14/2020 until 07/14/2021 Comment: 1 Occurrences starting 07/14 until 07/14/2021 COMP METABOLIC PANEL COMP METABOLIC PANEL Lab 07-14-2021 [facility] ([id number]) Routine IFG (impaired fasting glucose) 1 Occurrences starting 07/14/2020 until 07/14/2021 Comment: 1 Occurrences starting 07/14 until 07/14/2021 CT FLANK WO IVCON CT FLANK WO IVCON Radiology 08-08-2021 [facility] ([id number]) Routine History of kidney stones Microscopic hematuria 1 Occurrences starting 07/09/2020 until 08/08/2021 Comment: 1 Occurrences starting 07/09 until 08/08/2021 HEP C AB IA BLOOD HEP C AB IA BLOOD Lab Routine 07-14-2021 [facility] ([id number]) Encounter for hepatitis C screening test for low risk patient 1 Occurrences starting 07/14/2020 until 07/14/2021 Comment: 1 Occurrences starting 07/14 until 07/14/2021 HIV 1 2 COMBO(AG/AB),WITH HIV 1 2 COMBO(AG/AB),WITH 07-14-2021 [facility] REFLEX TO DIFFERENTIATION REFLEX TO DIFFERENTIATION ([id number]) Lab Routine Screening for HIV (human immunodeficiency virus) 1 Occurrences starting 07/14/2020 until 07/14/2021 Comment: 1 Occurrences starting 07/14 until 07/14/2021 LIPID PANEL BASIC LIPID PANEL BASIC Lab Routine 07-14-2021 [facility] ([id number]) Dyslipidemia 1 Occurrences starting 07/14/2020 until 07/14/2021 Comment: 1 Occurrences starting 07/14 until 07/14/2021 PTH INTACT BLD PTH INTACT BLD Lab Routine History 07-09-2021 [facility] ([id number]) of kidney stones Microscopic hematuria 1 Occurrences starting 07/09/2020 until 07/09/2021 Comment: 1 Occurrences starting 07/09 until 07/09/2021 XR ABDOMEN 1V SUPINE XR ABDOMEN 1V SUPINE [facility] ([id number]) Radiology Routine History of kidney stones 07/02/2020 10:52 AM EDT STONE PANEL URINE STONE PANEL URINE Lab 07-09-2021 [facility] ([id number]) Routine History of kidney stones Microscopic hematuria 1 Occurrences starting 07/09/2020 until 07/09/2021 Comment: 1 Occurrences starting 07/09 until 07/09/2021 URIC ACID BLOOD URIC ACID BLOOD Lab Routine 07-09-2021 [facility] ([id number]) History of kidney stones Microscopic hematuria 1 Occurrences starting 07/09/2020 until 07/09/2021 Comment: 1 Occurrences starting 07/09 until 07/09/2021 URINALYSIS, DIPSTICK ONLY URINALYSIS, DIPSTICK ONLY Lab [facility] ([id number]) Routine 07/02/2020 11:00 PM EDT no information [facility] ([id number]) no information [facility] (14820) Immunizations Vaccine Notes Status Date Location Influenza Vaccine, influenza virus (completed) 09-07-2011 - [facility] Split-Non Spec vaccine, unspecified 09-07-2011 (4419 5) formulation Influenza Vaccine, influenza virus (completed) 08-23-2010 - [facility] Split-Non Spec vaccine, unspecified 08-23-2010 (4419 5) formulation Influenza Vaccine, influenza virus (completed) 08-24-2009 - [facility] Split-Non Spec vaccine, unspecified 08-24-2009 (4419 5) formulation Influenza Vaccine, influenza virus (completed) 09-01-2008 - [facility] Split-Non Spec vaccine, unspecified 09-01-2008 (4419 5) formulation Influenza Vaccine, influenza virus (completed) 12-05-2007 - [facility] Split-Non Spec vaccine, unspecified 12-05-2007 (4419 5) formulation Influenza Seasonal influenza, injectable, (completed) 08-07-2019 - [facility] Inj Quadrivalent Age quadrivalent, contains 08-07-2019 (87809) 3+ preservative Influenza Seasonal influenza, injectable, (completed) 07-11-2018 - [facility] Inj Quadrivalent Age quadrivalent, contains 07-11-2018 (49852) 3+ preservative Influenza Seasonal influenza, injectable, (completed) 07-26-2017 - [facility] Inj Quadrivalent Age quadrivalent, contains 07-26-2017 ([id number]) 3+ preservative Influenza Seasonal influenza, injectable, (completed) 10-10-2016 - [facility] Inj Quadrivalent Age quadrivalent, contains 10-10-2016 (17764) 3+ preservative Influenza Seasonal influenza, injectable, (completed) 12-21-2015 - [facility] Inj Quadrivalent Age quadrivalent, contains 12-21-2015 (37845) 3+ preservative Influenza Seasonal influenza, seasonal, (completed) 08-13-2020 - [facility] Inj Age 3+ injectable 08-13-2020 (36537) Influenza influenza, seasonal, (completed) 12-21-2015 - [facility] injectable 12-21-2015 ([id number]) Influenza Seasonal influenza, seasonal, (completed) 09-28-2014 - [facility] Inj Age 3+ injectable 09-28-2014 ([id number]) Pneumovax pneumococcal (completed) 11-28-2010 - [facility] polysaccharide vaccine, 11-28-2010 (441 95) 23 valent Tdap (Age 7+) tetanus toxoid, reduced (completed) 12-21-2015 - [facility] diphtheria toxoid, and 12-21-2015 (4419 5) acellular pertussis vaccine, adsorbed Payers Payer Name Policy Number Location [employer] [id number] [facility] (44 195) [employer] [id number] [facility] ([place]) ([id number]) The following information is from the original human readable contentNo Payer Records FoundNo Payer Records FoundNo Payer Records Found Social History Type Social History Date Location Description Tobacco use and exposure Never used 06-24-2020 - [facility] 06-24-2020 ([id number]) History SDOH Social 2 01-12-2020 - [facility] 06-22-2020 ([id number]) Alcohol intake Current non-drinker of 06-24-2020 [facility] alcohol (finding) 06-24-2020 (08930) History SDOH Alcohol 1 01-12-2020 - [facility] Frequency 06-22-2020 (72169) History SDOH Alcohol Std 98 [facility] (63512) Tobacco smoking status Never smoker 06-24-2020 - [facility] 06-24-2020 (87635) History SDOH Social 8 01-12-2020 - [facility] 01-12-2020 (55217) History SDOH Education 12 01-12-2020 - [facility] 01-12-2020 (65189) History SDOH Financial 4 06-22-2020 - [facility] 06-22-2020 (49954) Sex Assigned At Female [facility] (33021) Exposure to SARS-CoV-2 Not sure [facility] (event) (10389) The following information is from the original human readable contentNo Social History Records FoundNo Social History Records FoundNo Social History Records FoundNo Social History Records FoundNo Social History Records Found Medical Equipment Equipment Code (if Equipment Original Equipment Procedure Code ( if Dates provided) Text (if provided) Identifier (if provided) provided) Ihg-Zl-B-Kind [id number] 02-18-2018 [facility] - [id number] History of Past Illness Problem Noted Date [...] by mouth twice daily as needed. ? ubgkbmr-ijogkylts-njlucek D3 (CALCIUM 500+D) 500 mg(1,250mg) -200 unit [...] emergent medical care immediately after use.Disp:one 2-pack w/national sales trainer). ? cetirizine (ZYRTEC) 10 mg tablet [...] not taking: Reported on 06/24/2020 ) ? [place] Plpitr-Kfsykg-Indx Oxide ([employer]ICATED BABY) 79-4-15 % [...] visit. I spent more than 20 minutes vjuq-rg-embb with the patient and over half the [...] encounterNery Canela - 07/07/2020 12:00 AM EDT [facility] NOTE DEPARTMENT OF UROLOGY [place] NAME: BHAVESH BEAULIEU [facility] NO.: [id number] DATE OF SERVICE: 07/07/2020 TELEPHONE VISIT Telephone call concerning the x-ray that just showed a questionable 5 mm stone in the kidney. Otherwise, she is doing satisfactorily. Will follow up with me in the office. 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 [employer] [facility] provides no warranty or guarantee of the accuracy or completeness of information in this document. UNRECOGNIZED CONTENT PROVIDED BELOW FOR UNRECOGNIZED SECTION Source Comments In the event this information is protected by the Federal Confidentiality of Alcohol and Drug Abuse Patient Records regulations: The Federal rules restrict any use of the information to criminally investigate or prosecute any alcohol or drug abuse patient.[facility] Hospital[facility] the event this information is protected by the Federal Confidentiality of Alcohol and Drug Abuse Patient Records regulations: The Federal rules restrict any use of the information to criminally investigate or prosecute any alcohol or drug abuse patient.[facility] HospitalIn the event this information is protected by the Federal Confidentiality of Alcohol and Drug Abuse Patient Records regulations: The Federal rules restrict any use of the information to criminally investigate or prosecute any alcohol or drug abuse patient.[facility] HospitalIn the event this information is protected by the Federal Confidentiality of Alcohol and Drug Abuse Patient Records regulations: The Federal rules restrict any use of the information to criminally investigate or prosecute any alcohol or drug abuse patient.[facility] HospitalIn the event this information is protected by the Federal Confidentiality of Alcohol and Drug Abuse Patient Records regulations: The Federal rules restrict any use of the information to criminally investigate or prosecute any alcohol or drug abuse patient.[facility] HospitalIn the event this information is protected by the Federal Confidentiality of Alcohol and Drug Abuse Patient Records regulations: The Federal rules restrict any use of the information to criminally investigate or prosecute any alcohol or drug abuse patient.[facility] HospitalIn the event this information is protected by the Federal Confidentiality of Alcohol and Drug Abuse Patient Records regulations: The Federal rules restrict any use of the information to criminally investigate or prosecute any alcohol or drug abuse patient.[facility] HospitalIn the event this information is protected by the Federal Confidentiality of Alcohol and Drug Abuse Patient Records regulations: The Federal rules restrict any use of the information to criminally investigate or prosecute any alcohol or drug abuse patient.[facility] HospitalIn the event this information is protected by the Federal Confidentiality of Alcohol and Drug Abuse Patient Records regulations: The Federal rules restrict any use of the information to criminally investigate or prosecute any alcohol or drug abuse patient.[facility] HospitalIn the event this information is protected by the Federal Confidentiality of Alcohol and Drug Abuse Patient Records regulations: The Federal rules restrict any use of the information to criminally investigate or prosecute any alcohol or drug abuse patient.[facility] HospitalIn the event this information is protected by the Federal Confidentiality of Alcohol and Drug Abuse Patient Records regulations: The Federal rules restrict any use of the information to criminally investigate or prosecute any alcohol or drug abuse patient.[facility] HospitalIn the event this information is protected by the Federal Confidentiality of Alcohol and Drug Abuse Patient Records regulations: The Federal rules restrict any use of the information to criminally investigate or prosecute any alcohol or drug abuse patient.[facility] HospitalIn the event this information is protected by the Federal Confidentiality of Alcohol and Drug Abuse Patient Records regulations: The Federal rules restrict any use of the information to criminally investigate or prosecute any alcohol or drug abuse patient.[facility] HospitalIn the event this information is protected by the Federal Confidentiality of Alcohol and Drug Abuse Patient Records regulations: The Federal rules restrict any use of the information to criminally investigate or prosecute any alcohol or drug abuse patient.[facility] HospitalIn the event this information is protected by the Federal Confidentiality of Alcohol and Drug Abuse Patient Records regulations: The Federal rules restrict any use of the information to criminally investigate or prosecute any alcohol or drug abuse patient.[facility] HospitalIn the event this information is protected by the Federal Confidentiality of Alcohol and Drug Abuse Patient Records regulations: The Federal rules restrict any use of the information to criminally investigate or prosecute any alcohol or drug abuse patient.[facility] HospitalIn the event this information is protected by the Federal Confidentiality of Alcohol and Drug Abuse Patient Records regulations: The Federal rules restrict any use of the information to criminally investigate or prosecute any alcohol or drug abuse patient.[facility] HospitalIn the event this information is protected by the Federal Confidentiality of Alcohol and Drug Abuse Patient Records regulations: The Federal rules restrict any use of the information to criminally investigate or prosecute any alcohol or drug abuse patient.[facility] HospitalIn the event this information is protected by the Federal Confidentiality of Alcohol and Drug Abuse Patient Records regulations: The Federal rules restrict any use of the information to criminally investigate or prosecute any alcohol or drug abuse patient.[facility] HospitalIn the event this information is protected by the Federal Confidentiality of Alcohol and Drug Abuse Patient Records regulations: The Federal rules restrict any use of the information to criminally investigate or prosecute any alcohol or drug abuse patient.[facility] UNRECOGNIZED CONTENT PROVIDED BELOW FOR UNRECOGNIZED [...] CT ABD & PELVIS W/O CONTRAST [address] [place] [address] Reason Onset Date Comments PA epi pen 07/27/2020 Reason Onset Date Comments Immunotherapy 08/10/2020 Reason Onset Date Comments Refill Request 08/25/2020 UNRECOGNIZED CONTENT PROVIDED BELOW FOR UNRECOGNIZED SECTION INFORMATION SOURCE DATE CREATED AUTHOR AUTHOR'S ORGANIZATIO N 05/09/2018 [facility] DATE CREATED AUTHOR AUTHOR'S ORGANIZATIO N 08/27/2018 [facility] ([place]) DATE CREATED AUTHOR AUTHOR'S ORGANIZATIO N 08/27/2020 [facility] UNRECOGNIZED CONTENT PROVIDED BELOW FOR UNRECOGNIZED SECTION [...] what her insurance is recommending. Mario Starr APRN.CONDUIT BENDER Telephone Encounter - Jasmyne Benavidez MA - [...] 07/27/2020 12:12 PM EDTEpi [facility]. Patient needs Symjepi auto injector prescribed please. Please let pharmacy know to run for epi (barista [phone]) [facility]: [phone] for no prior auth requirements. documented in [...] to the maintenance dose at at [facility]. From staff message from Alyssa Angel on [...] still not appropriate. ?Lastinjection was 02/24 in [place]. It looks like she is scheduled for [...] let her know her vials were in [place], she declined to schedule. I am thinking if her vials are not , the concentration is likely still not appropriate. Last injection was 02/24 in [place]. It looks like she is scheduled for [...]
== END 2020-04-03 03:47 | disposition home or self-care (01) ==
PROVIDERS: Emergency Provider Emergency Medicine; PCP Student in an Organized Health Care Education/Training Program
DX: F31.9 Bipolar disorder, unspecified (principal); R73.03 Prediabetes; J45.909 Unspecified asthma, uncomplicated; K21.9 Gastro-esophageal reflux disease without esophagitis; Z88.8 Allergy status to other drugs, medicaments and biological substances; Z79.899 Other long term (current) drug therapy; Z87.442 Personal history of urinary calculi
CPT/HCPCS: 80048; 80307; 80320; 84703; 85025; 99282; G0480

== ENCOUNTER → 2021-01-19 15:03 | Outpatient (CLI) | payer MEDICAID, SELFPAY ==
[2021-01-23 08:08] LABS: Alternaria tenuis <0.10 kU/L (Class 0); Ash, White <0.10 kU/L (Class 0); Aspergillus fumigatus <0.10 kU/L (Class 0); Bermuda Grass <0.10 kU/L (Class 0); Birch <0.10 kU/L (Class 0); Black Walnut <0.10 kU/L (Class 0); Cat Hair / Dander,Stand 0.14 kU/L (Class 0/I); Cedar, Mountain <0.10 kU/L (Class 0); Cladosporium herbarum <0.10 kU/L (Class 0); Cockroach, American <0.10 kU/L (Class 0); Cottonwood <0.10 kU/L (Class 0); D farinae Mite 3.75 kU/L (Class III); D pteronyssinus 3.44 kU/L (Class III); Dog Epithelia <0.10 kU/L (Class 0); Elm, American White <0.10 kU/L (Class 0); Immunoglobulin E 47 IU/mL (6-495); Maple/Box Elder <0.10 kU/L (Class 0); Mulberry, White <0.10 kU/L (Class 0); Oak, White <0.10 kU/L (Class 0); Pecan <0.10 kU/L (Class 0); Penicillium Notatum <0.10 kU/L (Class 0); Pigweed, Rough <0.10 kU/L (Class 0); Ragweed, Short/Common <0.10 kU/L (Class 0); Russian Thistle <0.10 kU/L (Class 0); Sheep Sorrel <0.10 kU/L (Class 0); Sycamore, American <0.10 kU/L (Class 0); Timothy Grass <0.10 kU/L (Class 0)
[2021-01-23 15:26] LABS: Mouse Urine <0.10 kU/L (Class 0)
== END ==
PROVIDERS: PCP Student in an Organized Health Care Education/Training Program; Visit Provider Otolaryngology Otolaryngology/Facial Plastic Surgery
DX: T78.40XA Allergy, unspecified, initial encounter (principal)
CPT/HCPCS: 36415; 82785; 86003

== ENCOUNTER 2023-01-29 17:38 | Emergency (ER) | payer MEDICAID, SELFPAY ==
[2023-01-29 17:38] VITALS: BP 158/109; PULSE 110; RESP 16; TEMP 36.6; O2SAT 100; BMI 48.2
--- NOTE | 2023-01-29 18:57 | ED.VIS.FALL ---
HPI HPI - Fall History of Present Illness Chief Complaint: Fall Informant: patient Narrative Narrative: Patient had a trip and fall on a curb walking into a building. Caught herself on her left hand. She states she bumped her nose but it does not hurt. No nose bleeding. No headache. No anticoagulation. She has pain mostly in the dorsal left wrist and a little bit in the elbow. She can still move them. No numbness or tingling. She had a abrasion to her left small finger. Her tetanus is up-to-date within the last 2 years. She has been up walking since this. No dizziness lightheadedness. No spinal pain or lower extremity pain. No trouble breathing or shortness of breath. PFSH PFSH Home Medications Amitriptyline Hcl 25 mg PO DAILY 04/03/20 [History Last Taken Unknown] B-complex with vitamin C 1 tab PO DAILY 04/03/20 [History Last Taken Unknown] Ziprasidone Hcl [Geodon] 40 mg PO DAILY 04/03/20 [History Last Taken Unknown] albuterol sulfate 2.5 mg/3 mL (0.083 %) solution for nebulization 2.5 mg inhalation Q4H PRN PRN Sob &/Or Wheezing 04/03/20 [History Last Taken Unknown] albuterol sulfate 90 mcg/actuation aerosol inhaler 2 puff inhalation Q4H PRN PRN Sob &/Or Wheezing 04/03/20 [History Last Taken Unknown] calcium carbonate 500 mg calcium (1,250 mg) tablet 1 tab PO BID 04/03/20 [History Last Taken Unknown] cetirizine 10 mg tablet 10 mg PO DAILY 04/03/20 [History Last Taken Unknown] cholecalciferol (vitamin D3) 50 mcg (2,000 unit) capsule 2,000 unit PO DAILY 04/03/20 [History Last Taken Unknown] dextroamphetamine-amphetamine 20 mg tablet 20 mg PO DAILY 04/03/20 [History Last Taken Unknown] fluticasone propionate 115 mcg-salmeterol 21 mcg/actuation HFA inhaler 2 puff inhalation BID 04/03/20 [History Last Taken Unknown] gabapentin 100 mg capsule 100 mg PO TIDCM 04/03/20 [History Last Taken Unknown] lorazepam 0.5 mg tablet 0.5 mg PO DAILY PRN PRN Anxiety 04/03/20 [History Last Taken Unknown] meloxicam 15 mg tablet 15 mg PO DAILY PRN Pain Score 1-1004/03/20 [History Last Taken Unknown] topiramate 50 mg tablet 50 mg PO DAILY 04/03/20 [History Last Taken Unknown] Allergy/AdvReac Type Severity Reaction Status Date / Time menthol Allergy Rash Verified 01/29/23 17:43 [From [facility]] bupropion [From Wellbutrin] AdvReac Other Verified 04/03/20 00:48 escitalopram [From Lexapro] AdvReac Other Verified 04/03/20 00:48 fluoxetine [From Prozac] AdvReac Other Verified 04/03/20 00:48 montelukast [From Singulair] AdvReac Other Verified 01/29/23 17:42 sertraline [From Zoloft] AdvReac Other Verified 01/29/23 17:41 venlafaxine [From Effexor] AdvReac Other Verified 01/29/23 17:42 vilazodone [From Viibryd] AdvReac Other Verified 01/29/23 17:42 vortioxetine AdvReac OTHER Verified 04/03/20 00:48 [From Trintellix] Social History Smoking Status: Never smoker ROS ROS ED Constitutional Constitutional ED: Denies chills or fever(s) Eyes Eyes: Denies blurry vision, change in vision or diplopia ENT ENT ED: Reports other Details: Patient hit her nose but no bleeding or symptoms. It does not hurt ; Denies rhinorrhea or sore throat Cardiovascular Cardiovascular: Denies chest pain or palpitations Respiratory/Chest Respiratory/Chest: Denies cough or dyspnea Gastrointestinal Gastrointestinal: Denies nausea or vomiting Genitourinary Genitourinary ED: Denies hematuria Musculoskeletal Musculoskeletal: Reports arthralgias; Denies back pain or neck pain Integumentary Reports Abrasions Neurologic Neurologic: Denies paresthesias or weakness Hematologic/Lymphatic Hematologic/Lymphatic: Denies easy bruising Allergic/Immunologic Allergic/Immunologic ED: Denies urticaria EXAM Physical Exam Narrative Exam Narrative: Patient is awake alert no acute distress very pleasant. HEENT shows just a small contusion of the bridge of her nose. But there is no break in the skin. No swelling. Is not tender. She has no septal hematoma when looking inside the nose. No facial tenderness or abrasions or contusions anywhere else. Neck shows no tenderness or pain with motion Lungs are clear bilaterally no pain with deep breath or palpation. Saturations are normal at 100% on room air showing no hypoxia. Heart is regular. Has a rate about 100. No murmur. Peripheral pulses are equal. Abdomen is obese but nontender Extremities no tenderness at all except dorsal aspect of her left wrist mostly overlying the distal dorsal radius. Then she has some mild soreness that is nonfocal in her elbow. Forearm is nontender and there is no deformity that is seen. She also had a abrasion over the dorsal medial aspect of the distal interphalangeal joint of the left small finger. This is shallow. This is not a laceration but an abrasion. This cannot be sutured. Const Vital Signs: 01/29/23 17:38 01/29/23 18:39 Temperature 97.8 F Temperature Source Temporal Pulse Rate 110 H Respiratory Rate 16 Respiratory Effort Normal Non-Labored Blood Pressure 158/109 H Blood Pressure Mean 125 Pulse Ox 100 Oxygen Delivery Method Room Air MDM MDM MDM Narrative Medical decision making narrative: My independent interpretation of the patient's three-view left elbow and 3 view wrist wrist show no sign of fracture or dislocation. Final reading by radiology is similar. With no fracture or dislocation I think patient would not necessarily benefit from splinting. This will likely cause stiffness. She is actually using her hand with her phone now. I think ice rest [id number] meds will be appropriate. Patient does not have snuffbox tenderness. I do not think she needs splinting at this time. She was told that she should follow-up and she may need repeat imaging if it is still sore in a week or so. Radiography Diagnostic Testing: Clinical Impression(s) from Imaging Studies Elbow X-Ray 01/29/23 19:00 IMPRESSION: No acute osseous injury. Electronically Signed: Ever Mcclain MD at 19:33 EDT , Wrist X-Ray 01/29/23 19:00 IMPRESSION: No acute osseous injury. Electronically Signed: Ever Mcclain MD at 19:34 EDT , Discharge Plan Triage Chief Complaint: Fall ED Provider: Gary Oliva Dx/Rx/DC Orders Clinical Impression: Fall from slip, trip, or stumble, Strain of elbow, left, Left wrist sprain Instructions: Treating?Strains and Sprains Prescriptions: No Action Amitriptyline Hcl 25 MG tablet 25 mg PO DAILY albuterol sulfate 2.5 MG/3 ML solution for nebulization 2.5 mg inhalation Q4H PRN PRN (Reason: Sob &/Or Wheezing) cetirizine 10 MG tablet 10 mg PO DAILY meloxicam 15 MG tablet 15 mg PO DAILY PRN (Reason: Pain Score 1-10/10) lorazepam 0.5 MG tablet 0.5 mg PO DAILY PRN PRN (Reason: Anxiety) calcium carbonate 500 mg calcium (1,250 mg) tablet 1 tab PO BID Label Comments: TAKE ONE TABLET BY MOUTH TWICE DAILY WITH FOOD dextroamphetamine-amphetamine 20 MG tablet 20 mg PO DAILY gabapentin 100 MG capsule 100 mg PO TIDCM albuterol sulfate 90 mcg/actuation HFA aerosol inhaler 2 puff inhalation Q4H PRN PRN (Reason: Sob &/Or Wheezing) Label Comments: Inhale 2 Puffs as instructed every 4 hours as needed. B-complex with vitamin C 1 EACH tablet 1 tab PO DAILY Label Comments: TAKE ONE TABLET BY MOUTH EVERY DAY topiramate 50 MG tablet 50 mg PO DAILY fluticasone propion-salmeterol 1 PUFF inhaler 2 puff inhalation BID cholecalciferol (vitamin D3) 2,000 UNIT capsule 2,000 unit PO DAILY Ziprasidone Hcl [Geodon] 40 MG capsule 40 mg PO DAILY Primary Care Provider: Ra Galvez Referrals: Ra Galvez DO [Primary Care Provider] - 1 Week if not improving Activity Restrictions/Additional Instructions: Ice rest and Tylenol or Motrin for soreness. Disposition Disposition: Home, Self Care
--- NOTE | 2023-01-29 19:00 | RAD_ITS ---
INDICATION: Left elbow pain after trauma. EXAMINATION/TECHNIQUE: X-RAY - LEFT XR Elbow Min 3 Views. 3 views. COMPARISON: None. FINDINGS: SOFT TISSUES: No soft tissue swelling or gas. No radiopaque foreign body. BONES/JOINTS: There is no displacement of the anterior or posterior fat pads. No acute fracture or subluxation. Normal alignment. Preservation of the joint space. No sclerotic or destructive changes observed. Small triceps tendon enthesophyte formation. RAD/Elbow min 3 Views IMPRESSION: No acute osseous injury. Electronically Signed: Ever Mcclain MD at 19:33 EDT ,
--- NOTE | 2023-01-29 19:00 | RAD_ITS ---
INDICATION: Left wrist pain after injury. EXAMINATION/TECHNIQUE: X-RAY - LEFT XR Wrist Min 3 Views. 3 views. COMPARISON: None. FINDINGS: SOFT TISSUES: No soft tissue swelling or gas. No radiopaque foreign body. BONES/JOINTS: No acute fracture or subluxation. Normal alignment. Preservation of the joint spaces. No sclerotic or destructive changes observed. RAD/Wrist min 3 Views IMPRESSION: No acute osseous injury. Electronically Signed: Ever Mcclain MD at 19:34 EDT ,
[2023-01-29 19:52] VITALS: PULSE 80; RESP 18; O2SAT 99
== END 2023-01-29 19:53 | disposition home or self-care (01) ==
PROVIDERS: Emergency Provider Emergency Medicine; PCP Student in an Organized Health Care Education/Training Program; Visit Provider Emergency Medicine
DX: S53.402A Unspecified sprain of left elbow, initial encounter (principal); S63.502A Unspecified sprain of left wrist, initial encounter; W01.0XXA Fall on same level from slipping, tripping and stumbling without subsequent striking against object, initial encounter
CPT/HCPCS: 73080; 73110; 99282

== ENCOUNTER → 2023-03-20 | Outpatient (CLI) | payer MEDICAID, SELFPAY | END | disposition home or self-care (01) | LOC: SL 13:39 | PROVIDERS: PCP Student in an Organized Health Care Education/Training Program; Referring Provider Clinical Nurse Specialist Acute Care; Visit Provider Clinical Nurse Specialist Acute Care | DX: G47.33 Obstructive sleep apnea (adult) (pediatric) (principal) | CPT/HCPCS: 95801; 95806 ==